=== PATIENT | male | born 1955 | race Caucasian/White ===

== ENCOUNTER 2020-06-11 09:11 | Outpatient (REF) | payer MEDICARE, SELFPAY ==
[2020-06-11 11:45] LABS: Anion Gap 13 (12-20); Blood Urea Nitrogen 14 mg/dL (9-16); Carbon Dioxide 27 mmol/L (22-29); Chloride 100 mmol/L (96-108); Cholesterol 226 mg/dL; Estimated Glomerular Filt Rate > 60; Glucose Random 123 mg/dL (60-115); HDL Cholesterol 45 mg/dL; LDL Cholesterol Calculated 148 mg/dl; Potassium 4.4 mmol/l (3.3-5.1); Sodium 136 mmol/L (135-145); Triglycerides 166 mg/dL
[2020-06-11 12:07] LABS: Prostate Specific Antigen Scr 0.32 ng/mL (<0.05-4.0); TSH reflex Free T4 5.06 mIU/mL (0.32-4.0)
[2020-06-11 12:46] LABS: Free T4 (Free Thyroxine) 0.78 ng/dL (0.71-1.85)
== END 2020-06-11 09:12 | disposition home or self-care (01) ==
LOC: HO.HMGCLDS 09:11
PROVIDERS: PCP Nurse Practitioner Family; Visit Provider Nurse Practitioner Family
DX: Z12.5 Encounter for screening for malignant neoplasm of prostate (principal); I10 Essential (primary) hypertension; R73.01 Impaired fasting glucose; R79.89 Other specified abnormal findings of blood chemistry
CPT/HCPCS: 80048; 80061; 84153; 84439; 84443

== ENCOUNTER 2020-06-24 08:44 | Outpatient (REF) | payer SELFPAY ==
[2020-06-24 12:20] LABS: Estimated Average Glucose 128 mg/dL; Hemoglobin A1c % 6.1 %
[2020-06-24 12:31] LABS: Anion Gap 13 (12-20); Blood Urea Nitrogen 12 mg/dL (9-16); Calcium 8.9 mg/dL (8.4-10.2); Carbon Dioxide 28 mmol/L (22-29); Chloride 101 mmol/L (96-108); Cholesterol 218 mg/dL; Estimated Glomerular Filt Rate > 60; Glucose Fasting 117 mg/dL (60-99); HDL Cholesterol 45 mg/dL; LDL Cholesterol Calculated 144 mg/dl; Potassium 4.5 mmol/l (3.3-5.1); Sodium 137 mmol/L (135-145); Triglycerides 145 mg/dL
[2020-06-24 12:37] LABS: TSH reflex Free T4 3.81 mIU/mL (0.32-4.0)
[2020-06-25 11:00] LABS: Alanine Aminotransferase 33 U/L (0-40); Albumin Level 3.9 g/dL (3.5-5.0); Alkaline Phosphatase 82 U/L (39-117); Aspartate Amino Transferase 24 U/L (5-37); Bilirubin Direct 0.4 mg/dL (0.0-0.5); Total Protein 7.3 g/dL (6.5-8.0)
[2020-06-25 18:32] LABS: Thyroid Peroxidase Antibodies <1 IU/mL (<9)
== END 2020-06-24 08:45 | disposition home or self-care (01) ==
LOC: HO.HMGCLDS 08:44
PROVIDERS: PCP Nurse Practitioner Family; Visit Provider Nurse Practitioner Family
DX: I10 Essential (primary) hypertension (principal); R73.01 Impaired fasting glucose; R79.89 Other specified abnormal findings of blood chemistry; E78.5 Hyperlipidemia, unspecified
CPT/HCPCS: 36415; 80048; 80061; 80076; 83036; 84443; 86376

== ENCOUNTER 2021-01-16 09:03 | Outpatient (REF) | payer MEDICARE, SELFPAY ==
[2021-01-16 12:40] LABS: TSH reflex Free T4 4.33 uIU/mL (0.32-4.0)
[2021-01-16 12:50] LABS: Alanine Aminotransferase 38 U/L (0-40); Alkaline Phosphatase 79 U/L (39-117); Anion Gap 16 (12-20); Aspartate Amino Transferase 31 U/L (5-37); Bilirubin Direct 0.4 mg/dL (0.0-0.5); Bilirubin Total 1.3 mg/dL (0.0-1.0); Blood Urea Nitrogen 13 mg/dL (9-16); Calcium 9.7 mg/dL (8.4-10.2); Carbon Dioxide 27 mmol/L (22-29); Chloride 99 mmol/L (96-108); Cholesterol 236 mg/dL; Estimated Glomerular Filt Rate > 60; Glucose Fasting 129 mg/dL (60-99); HDL Cholesterol 47 mg/dL; LDL Cholesterol Calculated 153 mg/dl; Potassium 4.8 mmol/L (3.3-5.1); Sodium 137 mmol/L (135-145); Total Protein 7.7 g/dL (6.5-8.0); Triglycerides 180 mg/dL
[2021-01-16 13:26] LABS: Free T4 (Free Thyroxine) 0.75 ng/dL (0.71-1.85)
== END 2021-01-16 09:04 | disposition home or self-care (01) ==
LOC: HO.HMGCLDS 09:03
PROVIDERS: PCP Nurse Practitioner Family; Visit Provider Nurse Practitioner Family
DX: I10 Essential (primary) hypertension (principal)
CPT/HCPCS: 36415; 80053; 80061; 80076; 82248; 84439; 84443

== ENCOUNTER 2021-01-31 10:04 | Outpatient (REF) | payer MEDICARE, SELFPAY ==
[2021-01-31 11:52] LABS: Cholesterol 221 mg/dL; HDL Cholesterol 47 mg/dL; LDL Cholesterol Calculated 142 mg/dl; Triglycerides 163 mg/dL
[2021-01-31 12:00] LABS: Estimated Average Glucose 137 mg/dL; Hemoglobin A1c % 6.4 %
== END 2021-01-31 10:05 | disposition home or self-care (01) ==
LOC: HO.HMGCLDS 10:04
PROVIDERS: PCP Nurse Practitioner Family; Visit Provider Nurse Practitioner Family
DX: E78.5 Hyperlipidemia, unspecified (principal); R73.01 Impaired fasting glucose
CPT/HCPCS: 36415; 80061; 83036

== ENCOUNTER 2021-03-17 08:27 | Outpatient (REF) | payer MEDICARE, SELFPAY ==
[2021-03-17 12:00] LABS: Cholesterol 158 mg/dL; HDL Cholesterol 46 mg/dL; LDL Cholesterol Calculated 82 mg/dl; Triglycerides 154 mg/dL
[2021-03-17 13:27] LABS: Free T4 (Free Thyroxine) 0.78 ng/dL (0.71-1.85)
== END 2021-03-17 08:28 | disposition home or self-care (01) ==
LOC: HO.HMGCLDS 08:27
PROVIDERS: PCP Nurse Practitioner Family; Visit Provider Nurse Practitioner Family
DX: E78.5 Hyperlipidemia, unspecified (principal); R79.89 Other specified abnormal findings of blood chemistry
CPT/HCPCS: 36415; 80061; 84439; 84443

== ENCOUNTER 2021-10-14 07:42 | Outpatient (REF) | payer MEDICARE, SELFPAY ==
--- NOTE | ~2021-10-14 | XR_ITS ---
EXAMINATION: XR HAND, RIGHT CLINICAL INFORMATION: Pain COMPARISON: None TECHNIQUE: PA, lateral, and oblique views of the right hand. FINDINGS: The bones and soft tissues are normal. No fracture. Alignment is anatomic. Joint spaces are maintained. No erosions or soft tissue calcifications. XR/XR hand RT min 3V IMPRESSION: No fracture or dislocation.
== END 2021-10-14 07:43 | disposition home or self-care (01) ==
LOC: HO.HOSX 07:42
PROVIDERS: Visit Provider Physician Assistant
DX: M72.0 Palmar fascial fibromatosis [Dupuytren] (principal)
CPT/HCPCS: 73130; 99202

== ENCOUNTER → 2021-11-11 08:34 | Outpatient (BNVA) | payer MEDICARE, SELFPAY | PROVIDERS: PCP Nurse Practitioner Family; Visit Provider Orthopaedic Surgery | DX: M72.0 Palmar fascial fibromatosis [Dupuytren] (principal) | CPT/HCPCS: 99202 ==

== ENCOUNTER 2021-11-24 06:05 | Day surgery (SDC) | payer MEDICARE, SELFPAY ==
[2021-11-18 14:44] VITALS: BMI 38.0
[2021-11-19 11:10] VITALS: BMI 38.0
--- NOTE | 2021-11-20 13:45 | HO.ANESPROP2 ---
Documented by User: Thuy Martinez NP 11/20/21 13:45 HPI - Anesthesia Eval Consult details Narrative: 66yo M for Right Partial Dupuytrens Contracture Release of hand and small finger PMFSH Active Problems Active Problems: All Active Problems (Updated 10/14/21 @ 09:44 by Juliet Whitaker PA-C) Elevated fasting blood sugar (Acute) Dyslipidemia (Acute) Finger pain (Acute) Dupuytren's contracture of right hand (Acute) Elevated TSH (Acute) Obesity (Acute) Screening PSA (prostate specific antigen) (Acute) HTN (hypertension) (Acute) Past Medical History Medical History Elevated TSH Gout HTN (hypertension) Obesity Screening PSA (prostate specific antigen) Varicose veins of both lower extremities Family History Family History Father HTN (hypertension) Mother Parkinsons disease Surgical History Surgical History (Updated 11/19/21 @ 11:09 by Raquel Boss RN) Hx of colonoscopy Hx of vascular surgery Social History Social History Are you a primary career services coordinator to a significant other at home: No Do you presently have visiting nurse or other home services: No Alcohol intake: current Patient Tobacco Use Status: Never used Tobacco Use of substances other than those prescribed or required for medical reasons: No Are you DNR?: No Advance Directives: No Advance Directives Information Provided: Yes Advance Directives on File: No Recently lost weight without trying: No Current occupational status: retired Meds Allergies Allergy/AdvReac Type Severity Reaction Status Date / Time No Known Allergies Allergy Verified 11/24/21 06:30 [No Known Allergies*] Exam Exam Date and Time: November 20, 2021 1345 Height,Weight and Vital Signs: Height 5 ft 10 in Weight 120.202 kg Assessment and Plan Assessment Anesthesia Assessment: Chart Reviewed Documented by User: Glenroy Muñiz MD 11/24/21 07:09 [facility] Past Medical History Medical History Elevated TSH Gout HTN (hypertension) Obesity Screening PSA (prostate specific antigen) Varicose veins of both lower extremities Family History Family History Father HTN (hypertension) Mother Parkinsons disease Family history of problems with anesthesia: No Surgical History Surgical History (Updated 11/19/21 @ 11:09 by Raquel Boss, RN) Hx of colonoscopy Hx of vascular surgery History of Problems with Anesthesia: No Social History Social History Are you a primary career services coordinator to a significant other at home: No Do you presently have visiting nurse or other home services: No Alcohol intake: current Patient Tobacco Use Status: Never used Tobacco Use of substances other than those prescribed or required for medical reasons: No Are you DNR?: No Advance Directives: No Advance Directives Information Provided: Yes Advance Directives on File: No Recently lost weight without trying: No Current occupational status: retired Meds Allergies Allergy/AdvReac Type Severity Reaction Status Date / Time No Known Allergies Allergy Verified 11/24/21 06:30 [No Known Allergies*] Exam Airway Mallampati Class: III TM Dist: >3cm Neck ROM: Full Assessment and Plan Assessment Anesthesia Assessment: Anesthesia Plan Discussed Final Anesthetic Review Family History of Problems with Anesthesia: No History of Problems with Anesthesia: No NPO: Yes ASA Class: III Final Preanesthetic Review: No Changes in Pt Med Stat, Meds/Allgs Chart Reviewed, Consent Obtained/Reviewed and Anes Risks/Benef Reviewed Patient Risk: Low Procedure Risk: Low Anesthetic Plan Anesthetic Plan: GA and Regional Block Disposition: Standard PACU
[2021-11-24] VITALS (7 sets, daily range): BP systolic 106–153; BP diastolic 53–81; PULSE 79–90; RESP 14–18; TEMP 36.2–36.7; O2SAT 93–97
[2021-11-24] MEDS: Lactated Ringers 1,000 ML 100 ML IVCONT (06:45)
--- NOTE | 2021-11-24 08:01 | MHC.SHP ---
Pre-Procedural Eval Section A Date of Service: 11/24/21 The patient is an INPATIENT: No Changes since office visit: No Cold of Flu in the past 2 weeks, No New Medical Problems, No Changes in Medication and No Patient answered all questions The History & Physical has been completed within 30 days and I have reviewed it.: Yes Section B Chief Complaint: dupuytren Allergies: Allergies Allergy/AdvReac Type Severity Reaction Status Date / Time No Known Allergies Allergy Verified 11/24/21 06:30 [No Known Allergies*] Plan I have reviewed the history and physical and performed a pertinent physical examination on my patient. No changes have occurred unless specified.
--- NOTE | 2021-11-24 08:01 | W.PM.OPN ---
Operative Note Operative Note Date of Service: 11/24/21 Narrative: Preop diagnosis: 1. Right small finger Dupuytren's contracture Postop diagnosis: Same Procedure: 1. Right small finger Partial Dupuytren's fasciectomy Surgeon: Johanna Chowdary MD Anesthesia: Mac plus regional block Findings: spiral Dupuytren's cord extending along the radial aspect of the small finger pass the D IP flexion crease. Postoperatively his contracture improved to MCP 0 degrees / PIP 20 degrees/D IP 0 degrees Implants: None Tourniquet time: Seventy-nine minutes EBL: 5.0 ml Specimen: Right small finger Dupuytren's cord Drains: None Complications: None Disposition: Brought to the recovery room in stable condition Plan: Follow-up in 10-14 days for wound check, suture removal and to check pathology OT appt on day of f/u to make a custom night spint and to begin OT Indications: The patient is a 66 year old man with a right small finger Dupuytren's contracture . The risks and benefits of operative treatment, including but not limited to risk of damage to blood vessels, nerves, tendons, infection, recurrence, persistent pain or numbness, incomplete resolution of preoperative symptoms, or need for further surgery were discussed with the patient and they wished to proceed with surgery. Procedure: Once consent was obtained patient was brought back to the operating suite and placed in the operating table in a supine position. A regional block was performed by the anesthesia team. Perioperative antibiotics and anesthesia was administered by the anesthesia team. A tourniquet was applied to the proximal aspect of the right upper extremity and the limb was prepped and draped in a standard surgical fashion. The limb was elevated exsanguinated with Esmarch bandage and the tourniquet inflated to 250 mm of mercury for a total tourniquet time of 79 minutes. I made a Kevin type incision extending along the Dupuytren's cord from the mid palm to the DIP flexion crease of the right small finger. The Incision was made with a 15. Blade through the skin the subcutaneous tissues. I then carefully dissected down to the level of the Dupuytren's cord beginning at the proximal aspect of the incision. This was done using tenotomy in iris scissors. Care was taken to protect the nearby neurovascular structures. The Dupuytren's cord was cut at its proximal aspect using tenotomy scissors. It was then grasped with an Allis clamp. TheDupuytren's cord was then carefully dissected free in a proximal to distal direction using tenotomy scissors and again taking care to protect the nearby neurovascular structures. The Dupuytren's cord became a spiral cord that extended up the radial aspect of the small finger to just beyond the D IP flexion crease. There was also a portion of the cord that extended radially from the primary cord to the ulnar aspect of the ring finger. We carefully dissected this additional cord off of the main cord and removed it as it passed towards the ring finger. The ulnar neurovascular bundle was noted to passed deep to the cord and towards the central aspect of the finger. Care was taken to carefully dissect this neurovascular bundle from the underside of the cord and protect It. The Dupuytren's cord was then carefully dissected free from the skin, the flexor tendon sheath, and other structures as we dissected from proximal to distal. It was then carefully removed and placed on the back table to be sent for histopathologic review. His contracture improved significantly to 0 degrees MCP/ 20 degree PIP /0 degree D IP. At this point the tourniquet was deflated and hemostasis obtained with a brief period of local pressure . The wounds were copiously irrigated with normal saline. The skin edges were reapproximated with 5-0 Prolene suture. The Wound was infiltrated with some 2% lidocaine with [id number] epinephrine. I also performed an ulnar nerve block by infiltrating about the ulnar nerve at the wrist for postop pain control. A sterile dressing and volar splint holding the small and ring fingers in extension was applied. The patient appears to have tolerated the procedure well and with no complications. All digits were well vascularized conclusion of the case
== END 2021-11-24 12:35 | disposition home or self-care (01) ==
PROVIDERS: PCP Nurse Practitioner Family; Visit Provider Orthopaedic Surgery
PROC: (CPT 26045; principal; 2021-11-24 07:30)
DX: M72.0 Palmar fascial fibromatosis [Dupuytren] (principal); I10 Essential (primary) hypertension
CPT/HCPCS: 26123; 88304; J0690; J1100; J1170; J1885; J2250; J2370; J2405; J3010

== ENCOUNTER → 2021-12-03 14:14 | Outpatient (BNVA) | payer MEDICARE, SELFPAY | PROVIDERS: PCP Orthopaedic Surgery; Visit Provider Orthopaedic Surgery | DX: Z47.89 Encounter for other orthopedic aftercare (principal) | CPT/HCPCS: 99212 ==

== ENCOUNTER → 2021-12-10 13:15 | Outpatient (BNVA) | payer MEDICARE, SELFPAY | PROVIDERS: PCP Orthopaedic Surgery; Visit Provider Physician Assistant | DX: Z47.89 Encounter for other orthopedic aftercare (principal); Z87.39 Personal history of other diseases of the musculoskeletal system and connective tissue | CPT/HCPCS: 99212 ==

== ENCOUNTER → 2021-12-16 13:30 | Outpatient (BNVA) | payer MEDICARE, SELFPAY | PROVIDERS: Visit Provider Orthopaedic Surgery | DX: M72.0 Palmar fascial fibromatosis [Dupuytren] (principal) | CPT/HCPCS: 99212 ==

== ENCOUNTER 2021-12-22 09:00 | Outpatient (RCR) | payer MEDICARE, SELFPAY ==
--- NOTE | 2021-12-15 10:02 | MHC.OT.OP ---
[address] [phone] F: [phone] Occupational Therapy Progress Note Diagnosis: Right small finger Dupuyrtens contracture s/p partial fasciectomy Date of Surgery: 11/24/21 Date of Evaluation: 12/03/21 Treatments to Date: 3 Cancellations to Date: 0 No Shows to Date: 1 Subjective: It's closing up a little more every day Reports wearing night ext splint and working on making a fist, using hedge trimmers.. Pain Score: 0 Pain Location: Right hand Objective Measures: AROM MCPj 5/70 , PIPj 25/80, DIPj 0/45 PROM 0/80, 0/85 , 0/50 Status: Progressing Assessment: Pt reports painfree. Surgical wound healing uncovered with rice grain size opening at proximal digit crease. Inc ROM after treatment digit 0.5 cm distance to DPC Pt reports full use of his left hand ,wearing a glove with heavy work. 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
--- NOTE | 2021-12-22 09:38 | MHC.OT.DC ---
[address] [phone] F: [phone] Occupational Therapy Discharge Note Provider: Johanan Chowdary MD Diagnosis: Right small finger Dupuyrtens contracture s/p partial fasciectomy Date of Surgery: 11/24/21 Date of Evaluation: 12/03/21 Date of Discharge: 12/22/21 Treatments to Date: 5 Cancellations to Date: 0 No Shows to Date: 1 Discharge Status: Achieved Goals Improved Function Independent with HEP Discharge Summary: Surgical wound closed. Small finger to DPC. Passive PIPj ext to neutral. Active ext 10 deg Pt using MHP at home prior to ex. Indep in HEP and con't wearing night ext splint Goals met Electronically Signed By: Brunilda Montaño OT CHT CLT Reviewed/agree with student documentation: N/A Therapist: Please Sign and return to therapist, thank you for your referral.
== END 2021-12-22 09:38 | disposition home or self-care (01) ==
LOC: HO.OT 09:00
PROVIDERS: Visit Provider Orthopaedic Surgery
DX: M72.0 Palmar fascial fibromatosis [Dupuytren] (principal)
CPT/HCPCS: 29130; 97110; 97165; 97760

== ENCOUNTER 2022-04-08 10:59 | Inpatient (IN) | payer MEDICARE, SELFPAY ==
--- NOTE | ~2022-04-08 | MR_ITS ---
EXAMINATION: MR FOOT WITHOUT AND WITH CONTRAST, LEFT CLINICAL INFORMATION: Evaluate for osteomyelitis, question on the x-ray. COMPARISON: X-ray 04/08/2022. TECHNIQUE: MRI in a high-field magnet without and with contrast. 10 mL Gadavist. FINDINGS: There is skin irregularity/ulceration on the plantar aspect of the distal 1st toe in the region of the distal aspect 1st distal phalanx. Underlying soft tissue edema/cellulitis. No loculated drainable fluid collections. There is abnormal edema, increased T2, low T1 signal enhancement in the mid/distal aspect of the 1st distal phalanx, suspicious for osteomyelitis. Mild 1st MTP arthritis. No additional areas of osteomyelitis seen. Visualized tendons intact. No appreciable tenosynovitis. Atrophy and increased signal in the intrinsic muscles of the foot can be seen in diabetic patients. There is dorsal foot subcutaneous edema/cellulitis. Visualized plantar aponeurosis is intact. Lisfranc ligament is intact. MR/MR foot LT wo/w con IMPRESSION: 1. Plantar skin irregularity/ulceration at the level of the distal aspect of the 1st toe. Soft tissue edema/cellulitis in the plantar soft tissues. No organized fluid collection or abscess is seen. 2. Abnormal findings suspicious of osteomyelitis of the 1st distal phalanx. Additional findings and details as above.
--- NOTE | ~2022-04-08 | XR_ITS ---
EXAMINATION: XR TOES, LEFT CLINICAL INFORMATION: First toe pain and swelling COMPARISON: None TECHNIQUE: 3 views of the left toes were obtained. FINDINGS: Soft tissue lucency along the undersurface of the tuft of the first toe is consistent with provided history of open wound. There is some subtle cortical irregularity involving the undersurface of the tuft, nonspecific. There is no fracture of the first toe. Mild diffuse soft tissue swelling. No radiopaque foreign body. XR/XR toe LT min 2V IMPRESSION: Subtle cortical irregularity involving the undersurface of the tuft of the first toe may represent osteomyelitis. Clinical correlation recommended.
[2022-04-08 11:00] VITALS: BP 158/66; PULSE 79; RESP 18; TEMP 36.6; O2SAT 98; BMI 37.3
[2022-04-08 11:28] LABS: MANUAL DIFF FLAG NO
[2022-04-08 11:40] LABS: Basophils Absolute Auto 0.1 X10*3/uL (0.0-0.2); Eosinophils Absolute Auto 0.3 X10*3/uL (0.0-0.4); Eosinophils Percent Auto 3.1 % (0-4); Hematocrit 42.8 % (42.0-52.0); Hemoglobin 14.9 g/dl (14.0-18.0); Imm Gran Abs Auto 0.04 X10*3/uL (0.00-0.03); Imm Gran Pct Auto 0.5 % (0.0-0.4); Lymphocytes Absolute Auto 1.6 X10*3/uL (1.2-4.9); Lymphocytes Percent Auto 18.6 % (20-40); Mean Corpuscular HGB Conc 34.8 g/dl (31.0-36.0); Mean Corpuscular Hemoglobin 33.6 pg (27.0-33.0); Mean Corpuscular Volume 96.6 fL (80.0-98.0); Mean Platelet Volume 9.8 fL (9.4-12.4); Monocytes Absolute Auto 0.6 X10*3/uL (0.1-1.2); Monocytes Percent Auto 7.3 % (2-11); Neutrophils Absolute Auto 5.9 x10*3/uL (2.0-8.3); Neutrophils Percent Auto 69.5 % (45-73); Platelet Count 258 X10*3/uL (160-400); Red Blood Count 4.43 X10*6/uL (4.60-5.80); Red Cell Distribution Width 13.3 % (11.0-16.0); White Blood Count 8.4 X10*3/uL (4.8-10.8)
[2022-04-08 11:47] LABS: Anion Gap 15 (12-20); Blood Urea Nitrogen 15 mg/dL (9-16); Calcium 9.6 mg/dL (8.4-10.2); Carbon Dioxide 26 mmol/L (22-29); Chloride 99 mmol/L (96-108); Creatinine Clr Calc Pharmacy 79.8; Estimated Glomerular Filt Rate > 60; Glucose Random 175 mg/dL (60-115); Potassium 4.5 mmol/L (3.3-5.1); Sodium 135 mmol/L (135-145)
[2022-04-08 13:31] LABS: C Reactive Protein 1.69 mg/dL (< or = 0.50)
[2022-04-08 14:10] LABS: Erythrocyte Sedimentation Rate 34 MM/HR (0-15)
[2022-04-08 21:14] VITALS: BP 162/80; PULSE 61; RESP 16; TEMP 36.6; O2SAT 99
--- NOTE | 2022-04-08 21:59 | ED_ITS ---
HPI - General Adult General Chief complaint: Wound/Laceration Stated complaint: l great toe infection Time Seen by Provider: 04/08/22 12:54 Source: patient Mode of arrival: ambulatory Limitations: no limitations History of Present Illness HPI narrative: Patient comes to the emergency room complaining of an infection to the left great toe. Patient states that 4 weeks ago, he dropped a 200lbs piece of wood on his left foot. Patient states that he noticed that he was developing ulcer on the plantar aspect of the toe. Patient applied bacitracin every day. The initial 2 weeks, patient states that it was healing, but the following 2 weeks, starting getting worse. Patient denies any fever chills. Patient went to a walk-in clinic today, he was advised to come to the emergency room for suspicion of osteomyelitis/gangrene Related Data Previous Rx's Medication Instructions Recorded allopurinol 100 mg tablet 100 mg PO DAILY 90 days #90 tabs 03/25/22 hydrochlorothiazide 12.5 mg tablet 12.5 mg PO DAILY 30 days #30 tabs 03/25/22 lisinopril 40 mg tablet 40 mg PO DAILY #90 tabs 03/25/22 Allergies Allergy/AdvReac Type Severity Reaction Status Date / Time No Known Allergies Allergy Verified 04/08/22 09:47 [No Known Allergies*] Review of Systems Review of Systems: Constitutional : No Weight loss, No Fever, No Chills, No Night Sweats, No Fatigue, No Malaise ENT/Mouth : No Hearing loss, No Ear Pain, No Nasal Congestion, No Sinus Pain, No Hoarseness, No sore throat, No Rhinorrhea, No Swallowing Difficulty Eyes: No Eye Pain, No Swelling, No Redness, No Foreign Body, No Discharge, No Vision Changes Cardiovascular : No Chest Pain, No SOB, No Dyspnea on Exertion, No Orthopnea, No Edema, No Palpitations Respiratory : No Cough, No Sputum, No Wheezing, No Smoke Exposure, No Dyspnea Gastrointestinal : No Nausea, No Vomiting, No Diarrhea, No Constipation, No abdominal Pain, No Hematochezia, No Melena Genitourinary : no irregular bleeding, No Dysuria, No Urinary Frequency, No Hematuria, No Urinary Incontinence, No Urgency, No Flank Pain, No Urinary Flow Changes, No Hesitancy Musculoskeletal : No joint pain, No Myalgias, No Joint Swelling Skin : Ulcer in the great toe plantar aspect Neuro : No Weakness, No Numbness, No Paresthesias, No Loss of Consciousness, No Dizziness, No Headache Psych : No Anxiety/Panic, No Depression, No SI/HI/AH/VH, No Social Issues, Heme/Lymph: No Bruising, No Bleeding,No Lymphadenopathy Endocrine : No Polyuria, No Polydipsia, No Temperature Intolerance PMF Past Medical History Medical History Elevated TSH Gout HTN (hypertension) Obesity Screening PSA (prostate specific antigen) Varicose veins of both lower extremities Surgical History Hx of colonoscopy Hx of vascular surgery Family History Family History Father HTN (hypertension) Mother Parkinsons disease Social History Social History Are you a primary career based intervention coordinator to a significant other at home: No Do you presently have visiting nurse or other home services: No Alcohol intake: current Patient Tobacco Use Status: Never used Tobacco Current occupational status: retired Physical Exam ED Vital Signs: Vital Signs - 24 hr 04/08/22 11:00 04/08/22 21:14 Temperature 98 F 97.8 F Pulse Rate 79 61 Respiratory Rate 18 16 Blood Pressure 158/66 H 162/80 H Pulse Oximetry 98 99 Oxygen Delivery Method Room Air Room Air BMI result Body Mass Index 37.3 Const Other: Appearance: Alert. Oriented X3. No acute distress. Eyes: Pupils equal, round and reactive to light. ENT: Pharynx normal. Neck: Normal inspection. Neck supple. No lymph nodes noted. No crepitus CVS: Normal heart rate and rhythm. Pulses normal. Normal S1 and S2 Respiratory: No respiratory distress. Breath sounds normal. No Wheezing. No rales Abdomen: Soft and nontender. No rigidity. No distention. Skin: Skin warm and dry. Normal skin color. There is a deep ulceration in the plantar aspect of the left great toe, foul-smelling. see picture below Extremities: No lower extremity edema. Neuro: Oriented X 3. No motor deficit. No sensory deficit. Moving all extremities. No slurred speech. CN 2 through 12 grossly intact Psych: calm, cooperative, normal affect Course Course Course Narrative: I discussed the x-ray findings and physical exam with the patient, patient likely has osteomyelitis. Patient will be treated with Zosyn and vancomycin. Patient does not have any fever, normal blood pressure, sepsis not suspected. I discussed the patient with dr. Jay, patient being admitted Medical Decision Making Lab Data Result diagrams: 04/08/22 11:20 04/08/22 11:20 Labs: Lab Results 04/08/22 04/08/22 04/08/22 Range/Units 11:20 11:20 11:20 WBC 8.4 (4.8-10.8) X10*3/uL RBC 4.43 L (4.60-5.80) X10*6/uL Hgb 14.9 (14.0-18.0) g/dl Hct 42.8 (42.0-52.0) % MCV 96.6 (80.0-98.0) fL MCH 33.6 H (27.0-33.0) pg MCHC 34.8 (31.0-36.0) g/dl RDW 13.3 (11.0-16.0) % Plt Count 258 (160-400) X10*3/uL MPV 9.8 (9.4-12.4) fL Immature Gran % (Auto) 0.5 H (0.0-0.4) % Neut % (Auto) 69.5 (45-73) % Lymph % (Auto) 18.6 L (20-40) % [place] % (Auto) 7.3 (2-11) % Eos % (Auto) 3.1 (0-4) % Baso % (Auto) 1.0 (0-2) % Lymph # (Auto) 1.6 (1.2-4.9) X10*3/uL [place] # (Auto) 0.6 (0.1-1.2) X10*3/uL Eos # (Auto) 0.3 (0.0-0.4) X10*3/uL Baso # (Auto) 0.1 (0.0-0.2) X10*3/uL Abs Immat Gran (auto) 0.04 H (0.00-0.03) X10*3/uL Absolute Neuts (auto) 5.9 (2.0-8.3) x10*3/uL Absolute Nucleated RBC 0.000 (0.0-0.012) X10*3/uL Nucleated RBC % (auto) 0.0 (0.0-0.2) /100WBC ESR (0-15) MM/HR Sodium 135 (135-145) mmol/L Potassium 4.5 (3.3-5.1) mmol/L Chloride 99 (96-108) mmol/L Carbon Dioxide 26 (22-29) mmol/L Anion Gap 15 (12-20) BUN 15 (9-16) mg/dL Creatinine 1.14 (0.5-1.4) mg/dL Estim Creat Clear Calc 79.8 Estimated GFR > 60 Random Glucose 175 H D (60-115) mg/dL Lactic Acid 2.0 (0.5-2.0) mmol/L Calcium 9.6 (8.4-10.2) mg/dL C-Reactive Protein 1.69 H (< or = 0.50) mg/dL 04/08/22 Range/Units 11:20 WBC (4.8-10.8) X10*3/uL RBC (4.60-5.80) X10*6/uL Hgb (14.0-18.0) g/dl Hct (42.0-52.0) % MCV (80.0-98.0) fL MCH (27.0-33.0) pg MCHC (31.0-36.0) g/dl RDW (11.0-16.0) % Plt Count (160-400) X10*3/uL MPV (9.4-12.4) fL Immature Gran % (Auto) (0.0-0.4) % Neut % (Auto) (45-73) % Lymph % (Auto) (20-40) % [place] % (Auto) (2-11) % Eos % (Auto) (0-4) % Baso % (Auto) (0-2) % Lymph # (Auto) (1.2-4.9) X10*3/uL [place] # (Auto) (0.1-1.2) X10*3/uL Eos # (Auto) (0.0-0.4) X10*3/uL Baso # (Auto) (0.0-0.2) X10*3/uL Abs Immat Gran (auto) (0.00-0.03) X10*3/uL Absolute Neuts (auto) (2.0-8.3) x10*3/uL Absolute Nucleated RBC (0.0-0.012) X10*3/uL Nucleated RBC % (auto) (0.0-0.2) /100WBC ESR 34 H (0-15) MM/HR Sodium (135-145) mmol/L Potassium (3.3-5.1) mmol/L Chloride (96-108) mmol/L Carbon Dioxide (22-29) mmol/L Anion Gap (12-20) BUN (9-16) mg/dL Creatinine (0.5-1.4) mg/dL Estim Creat Clear Calc Estimated GFR Random Glucose (60-115) mg/dL Lactic Acid (0.5-2.0) mmol/L Calcium (8.4-10.2) mg/dL C-Reactive Protein (< or = 0.50) mg/dL Imaging Data Foot x-ray: Radiologist's impression: FINDINGS: Soft tissue lucency along the undersurface of the tuft of the first toe is consistent with provided history of open wound. There is some subtle cortical irregularity involving the undersurface of the tuft, nonspecific. There is no fracture of the first toe. Mild diffuse soft tissue swelling. No radiopaque foreign body. XR/XR toe LT min 2V IMPRESSION: Subtle cortical irregularity involving the undersurface of the tuft of the first toe may represent osteomyelitis. Clinical correlation recommended. Discharge Plan Discharge Clinical Impression: Acute osteomyelitis of toe of left foot Patient Disposition: Admitted As Inpatient Prescriptions: No Action allopurinol 100 mg tablet 100 mg PO DAILY 90 Days Qty: 90 0RF hydrochlorothiazide 12.5 mg tablet 12.5 mg PO DAILY 30 Days Qty: 30 3RF lisinopril 40 mg tablet 40 mg PO DAILY Qty: 90 0RF oxycodone-acetaminophen 5-325 mg tablet 1 - 2 tab PO Q6H PRN (Reason: pain) Qty: 30 0RF ibuprofen 600 mg tablet 600 mg PO Q6-8H PRN (Reason: pain) Qty: 40 0RF
--- NOTE | 2022-04-08 22:07 | PHA.MEDREC ---
Pharmacy Consult ? Medication Reconciliation Pharmacy has completed the medication reconciliation. Patient seemed very confused. When asked about his medications he stated he cant remember anything, when asked what pharmacy he said he had no idea. When asked if he had someone help manage his meds he stated he does them alone. I used claims from [employer]. Will leave note for pharmacist tomorrow to retry/ call daughter.
--- NOTE | 2022-04-08 22:35 | PC.NURSE ---
Line placed and first set of blood cultures drawn
--- NOTE | 2022-04-08 22:42 | PM.IMHP ---
History of Present Illness Date of Service: 04/08/22 Chief Complaint: Foot wound This is a 66 year old male with past medical history of hypertension, gout, who presents to the hospital with complaints of left big toe nonhealing wound. Patient reports that about 4 weeks ago he dropped a 200 lb piece of wood on his left foot that fell directly on his big toe, he had some mild pain but he was a able to ambulate and did not think much of it. He did not seek any medical attention at the time. He reports that he did notice swelling and splinting of his big toe nail bed but he managed at home for 2 weeks. After 2 weeks is stopped getting better, started having a whole and draining serosanguineous fluid. He denies any fever or chills, he reports that he decided to come to the hospital because was not getting better. He also noted some redness and swelling on his foot coming to his ankle area. He denies any headache no change in vision no shortness of breath no chest pain, no abdominal pain nausea or vomiting, no diarrhea constipation, no urinary symptoms and no other extremity edema besides mention. On arrival to the ED patient hemodynamically stable with elevated blood pressure otherwise vitals unremarkable. Labs reviewed showed WBC count of 8.4, hemoglobin of 14.9, hematocrit 42, ESR 34, CRP of 1.69 Toe x-ray shows subtle cortical irregularities involving the undersurface of the tuft of the 1st toe which may represent osteomyelitis Patient denies any history of diabetes, patient will be admitted for further management of osteomyelitis Review of Systems Review of Systems: Yes all other systems are reviewed and are negative [facility] Medical History Elevated TSH Gout HTN (hypertension) Obesity Screening PSA (prostate specific antigen) Varicose veins of both lower extremities Family History Father HTN (hypertension) Mother Parkinsons disease Surgical History Hx of colonoscopy Hx of vascular surgery Social History Are you a primary nursing care partner to a significant other at home: No Do you presently have visiting nurse or other home services: No Alcohol intake: current Patient Tobacco Use Status: Never used Tobacco Advance Directives: No Advance Directives Information Provided: No Current occupational status: retired Meds Allergies Allergy/AdvReac Type Severity Reaction Status Date / Time No Known Allergies Allergy Verified 04/08/22 09:47 [No Known Allergies*] Active Medications: Current Medications Vancomycin HCl 2,000 mg/ (Sodium Chloride) 540 mls @ 270 mls/hr IV ONCE ONE Stop: 04/08/22 23:56 Pharmacy Consult (Consult Rx Perform Med Rec) 1 each MISCELLANE ONCE PRN PRN Reason: Consult order Physical Exam Vital Signs and Narrative: Vital Signs: Last Vital Signs Temp 97.8 F 04/08/22 21:14 Pulse 61 04/08/22 21:14 Resp 16 04/08/22 21:14 BP 162/80 H 04/08/22 21:14 Pulse Ox 99 04/08/22 21:14 O2 Del Method 04/08/22 21:14 BMI result Body Mass Index 37.3 Const: General: cooperative and no acute distress Orientation/consciousness: patient oriented x3 Eyes: General: appearance normal, both eyes and all related structures Resp: Effort & Inspection: normal respiratory effort Auscultation: clear to auscultation bilaterally Cardio: Rate: regular rate Rhythm: regular rhythm GI: Palpation (GI): Soft to palpation Auscultation: normal bowel sounds Skin: General skin exam: no rashes or lesions noted Neuro: General: patient oriented x3 Cognition (Neuro): normal cognition Extrem: Other: Left foot edema, erythema up to the lance, warmth, The left big toe has a large open ulcer at the base of the toe, clean with no evidence of discharge at this time Results Labs CBC and Chem 7: 04/08/22 11:20 04/08/22 11:20 Labs: Laboratory Results - last 24 hr 04/08/22 04/08/22 04/08/22 11:20 11:20 11:20 MCV 96.6 MCH 33.6 H MCHC 34.8 RDW 13.3 Plt Count 258 MPV 9.8 Immature Gran % (Auto) 0.5 H Neut % (Auto) 69.5 Lymph % (Auto) 18.6 L [place] % (Auto) 7.3 Eos % (Auto) 3.1 Baso % (Auto) 1.0 Lymph # (Auto) 1.6 [place] # (Auto) 0.6 Eos # (Auto) 0.3 Baso # (Auto) 0.1 Abs Immat Gran (auto) 0.04 H Absolute Neuts (auto) 5.9 Absolute Nucleated RBC 0.000 Nucleated RBC % (auto) 0.0 ESR Anion Gap 15 Estim Creat Clear Calc 79.8 Estimated GFR > 60 Random Glucose 175 H D Estimat Average Glucose Hemoglobin A1c % Lactic Acid 2.0 Calcium 9.6 C-Reactive Protein 1.69 H 04/08/22 04/08/22 11:20 11:20 MCV MCH MCHC RDW Plt Count MPV Immature Gran % (Auto) Neut % (Auto) Lymph % (Auto) [place] % (Auto) Eos % (Auto) Baso % (Auto) Lymph # (Auto) [place] # (Auto) Eos # (Auto) Baso # (Auto) Abs Immat Gran (auto) Absolute Neuts (auto) Absolute Nucleated RBC Nucleated RBC % (auto) ESR 34 H Anion Gap Estim Creat Clear Calc Estimated GFR Random Glucose Estimat Average Glucose Cancelled Hemoglobin A1c % Cancelled Lactic Acid Calcium C-Reactive Protein Imaging Radiologist's Impressions: Impressions Toe X-Ray 04/08/22 11:50 IMPRESSION: Subtle cortical irregularity involving the undersurface of the tuft of the first toe may represent osteomyelitis. Clinical correlation recommended. Assessment and Plan (1) Acute osteomyelitis of toe of left foot: Status: Acute (2) Toe infection: Status: Acute Plan 58-year-old male with past medical history of hypertension presents the hospital with complaints of nonhealing wound of left great toe # left great toe osteomyelitis - patient denies any history of diabetes or PAD - has evidence of osteomyelitis including elevated ESR and CRP as well as x-ray suggestive of osteomyelitis - will treat with IV antibiotics, - general surgery consult # hypertension - stable - continue home antihypertensive Given the osteomyelitis of toe, will obtain hemoglobin A1c to rule out underlying diabetes DVT prophylaxis: Lovenox Given osteomyelitis and need for IV antibiotics anticipate the patient will require a minimum 2 night hospital stay for further management and monitoring Quality Stroke Does the patient have a stroke diagnosis?: No VTE Prior VTE?: No VTE Risk Level:: Medical - moderate - high VTE Device Contraindication: Treatment Not Indicated VTE Drug Contraindication: N/A - Med Ordered
[2022-04-08] MEDS: Piperacillin Sodium/Tazobactam 3.375 GM in 0.9 % Sodium Chloride 50 ML IV (22:54)
[2022-04-08 23:18] LABS: Lactic Acid 1.1 mmol/L (0.5-2.0)
[2022-04-09] MEDS: 0.9 % Sodium Chloride 1,000 ML 100 ML IVCONT ×3 (00:57→19:41)
[2022-04-09] MEDS: Enoxaparin Sodium 40 MG/0.4 ML SYRINGE SUBCUT ×2 (00:59→23:20)
[2022-04-09] MEDS: 0.9 % Sodium Chloride Flush 3 ML SYRINGE IVFLUSH (01:00)
[2022-04-09 05:55] LABS: Basophils Absolute Auto 0.1 X10*3/uL (0.0-0.2); Eosinophils Absolute Auto 0.3 X10*3/uL (0.0-0.4); Eosinophils Percent Auto 3.9 % (0-4); Hematocrit 40.3 % (42.0-52.0); Hemoglobin 14.2 g/dl (14.0-18.0); Imm Gran Abs Auto 0.03 X10*3/uL (0.00-0.03); Imm Gran Pct Auto 0.4 % (0.0-0.4); Lymphocytes Absolute Auto 1.6 X10*3/uL (1.2-4.9); Lymphocytes Percent Auto 19.4 % (20-40); MANUAL DIFF FLAG NO; Mean Corpuscular HGB Conc 35.2 g/dl (31.0-36.0); Mean Corpuscular Hemoglobin 33.9 pg (27.0-33.0); Mean Corpuscular Volume 96.2 fL (80.0-98.0); Mean Platelet Volume 9.3 fL (9.4-12.4); Monocytes Absolute Auto 0.7 X10*3/uL (0.1-1.2); Monocytes Percent Auto 8.1 % (2-11); Neutrophils Absolute Auto 5.5 x10*3/uL (2.0-8.3); Neutrophils Percent Auto 67.2 % (45-73); Platelet Count 243 X10*3/uL (160-400); Red Blood Count 4.19 X10*6/uL (4.60-5.80); Red Cell Distribution Width 13.2 % (11.0-16.0); White Blood Count 8.1 X10*3/uL (4.8-10.8)
[2022-04-09 06:48] LABS: Anion Gap 11 (12-20); Blood Urea Nitrogen 12 mg/dL (9-16); Carbon Dioxide 27 mmol/L (22-29); Chloride 103 mmol/L (96-108); Creatinine Clr Calc Pharmacy 90.9; Estimated Glomerular Filt Rate > 60; Glucose Random 115 mg/dL (60-115); Potassium 4.4 mmol/L (3.3-5.1); Sodium 137 mmol/L (135-145)
[2022-04-09] MEDS: Piperacillin Sodium/Tazobactam 3.375 GM in 0.9 % Sodium Chloride 50 ML IV ×4 (06:57→23:21)
[2022-04-09 07:21] LABS: Estimated Average Glucose 126 mg/dL
[2022-04-09 08:08] LABS: COVID-19 Test Negative (Negative)
[2022-04-09 08:15] VITALS: BP 119/54; PULSE 73; RESP 18; TEMP 36.5; O2SAT 97
--- NOTE | 2022-04-09 08:55 | PHA.MEDREC ---
Pharmacy Consult ? Medication Reconciliation Pharmacy has completed the medication reconciliation. Patient was interviewed yesterday (04/08/22) by Arabella ([facility]). Patient did not know any of the meds they were taking. Called spouse and verified meds with her this morning (04/09/22). Cross-referenced with claim history.
[2022-04-09] MEDS: lisinopriL 40 MG TABLET PO (09:32)
[2022-04-09] MEDS: allopurinoL 100 MG TABLET PO (09:32)
[2022-04-09] MEDS: hydroCHLOROthiazide 12.5 MG TABLET PO (09:32)
--- NOTE | 2022-04-09 11:26 | MHC.CM.PN ---
PT REPORTS HE LIVES WITH HIS AND IS INDEPENDENT WITH CARE PT DENIES USE OF DME OR HOME SERVICES PT REPORTS HE IS IN T HE PROCESS OF COMPLETING A WILL/HCP WITH HIS SURVEY CHIEF PT IS COVID VACCINATED WITH [employer] (11/20/20) AND PFI[employer]ER (08/25/21) PCP: JAMESON SANTACRUZ IMM DELIVERED, COPY SENT TO [facility] CURRENT DC PLAN IS HOME WITH NO SERVICES VS WITH [facility] AND [facility] TO TRANSPORT
--- NOTE | 2022-04-09 12:03 | PC.NURSE ---
pt to mri
--- NOTE | 2022-04-09 14:32 | PC.NURSE ---
pt a&ox3, ivf running per order, ate some of lunch, will continue to monitor.
--- NOTE | 2022-04-09 15:33 | HO.PM.IMPN ---
Subjective Subjective Date of Service: 04/09/22 Interval History: no acute issues overnight Review of Systems denies chest pain Denies shortness of breath Denies nausea vomiting diarrhea Physical Exam Vital Signs: Vital Signs: Last Vital Signs Temp 97.7 F 04/09/22 08:15 Pulse 73 04/09/22 08:15 Resp 18 04/09/22 08:15 BP 119/54 L 04/09/22 08:15 Pulse Ox 97 04/09/22 08:15 O2 Del Method 04/09/22 08:15 BMI result Body Mass Index 37.3 Const: Other: denies pain in his foot. No acute issues Resp: Other: clear to auscultation bilaterally. No rales rhonchi or wheezes Cardio: Other: no S4; positive S1-S2; no S3 murmurs rubs or gallops Extrem: Other: no edema bilaterally Objective Data Active Medications Acetaminophen (Acetaminophen 325 Mg Tablet) 650 mg PO Q6H PRN PRN Reason: Pain, Mild (Pain Scale 1-3) Allopurinol (Allopurinol 100 Mg Tablet) 100 mg PO DAILY [facility] Last Admin: 04/09/22 09:32 Dose: 100 mg Documented By: MALORIE Docusate Sodium (Docusate Sodium 100 Mg Capsule) 100 mg PO DAILY PRN PRN Reason: Constipation Enoxaparin Sodium (Enoxaparin Sodium 40 Mg/0.4 Ml Syringe) 40 mg SUBCUT Q24H [facility] Last Admin: 04/09/22 00:59 Dose: 40 mg Documented By: SHIV Hydrochlorothiazide (Hydrochlorothiazide 12.5 Mg Tablet) 12.5 mg PO DAILY [facility]; Protocol Last Admin: 04/09/22 09:32 Dose: 12.5 mg Documented By: MALORIE Piperacillin Sod/Tazobactam (Sod 3.375 gm/ Sodium Chloride) 50 mls @ 100 mls/hr IV Q6H [facility] Last Infusion: 04/09/22 13:31 Dose: 0 mls/hr Documented By: YEIMI Sodium Chloride (Ns) 1,000 mls @ 100 mls/hr IVCONT .Q10H [facility] Last Admin: 04/09/22 09:32 Dose: 100 mls/hr Documented By: MALORIE Vancomycin HCl 1,000 mg/ (Sodium Chloride) 270 mls @ 270 mls/hr IV Q12H [facility] Lisinopril (Lisinopril 40 Mg Tablet) 40 mg PO DAILY [facility]; Protocol Last Admin: 04/09/22 09:32 Dose: 40 mg Documented By: MALORIE Ondansetron HCl (Ondansetron Hcl 4 Mg/2 Ml Vial) 4 mg IVPUSH Q8H PRN PRN Reason: Nausea and Vomiting Pharmacy Consult (Consult Rx Perform Med Rec) 1 each MISCELLANE ONCE PRN PRN Reason: Consult order Pharmacy Consult (Consult Rx Vancomycin Dosing) 1 each MISCELLANE DAILY PRN PRN Reason: Consult order Pharmacy Consult (Consult Rx Vancomycin Dosing) 1 each MISCELLANE DAILY PRN PRN Reason: Consult order Sodium Chloride (0.9 % Sodium Chloride Flush 3 Ml Syringe) 3 ml IVFLUSH QSHIFT [facility] Last Admin: 04/09/22 09:33 Dose: Not Given Documented By: MALORIE Non-Admin Reason: IV Running Labs CBC & Chem 7: 04/09/22 05:50 04/09/22 05:50 Labs: Laboratory Results - last 24 hr 04/08/22 04/08/22 04/08/22 11:20 11:20 11:20 MCV MCH MCHC RDW Plt Count MPV Immature Gran % (Auto) Neut % (Auto) Lymph % (Auto) [place] % (Auto) Eos % (Auto) Baso % (Auto) Lymph # (Auto) [place] # (Auto) Eos # (Auto) Baso # (Auto) Abs Immat Gran (auto) Absolute Neuts (auto) Absolute Nucleated RBC Nucleated RBC % (auto) ESR 34 H Anion Gap Estim Creat Clear Calc Estimated GFR Random Glucose Estimat Average Glucose Cancelled Hemoglobin A1c % Cancelled Lactic Acid Calcium C-Reactive Protein 1.69 H COVID-19 ([facility]) COVID-19 Clin Com 04/08/22 04/09/22 04/09/22 22:57 05:50 05:50 MCV 96.2 MCH 33.9 H MCHC 35.2 RDW 13.2 Plt Count 243 MPV 9.3 L Immature Gran % (Auto) 0.4 Neut % (Auto) 67.2 Lymph % (Auto) 19.4 L [place] % (Auto) 8.1 Eos % (Auto) 3.9 Baso % (Auto) 1.0 Lymph # (Auto) 1.6 [place] # (Auto) 0.7 Eos # (Auto) 0.3 Baso # (Auto) 0.1 Abs Immat Gran (auto) 0.03 Absolute Neuts (auto) 5.5 Absolute Nucleated RBC 0.000 Nucleated RBC % (auto) 0.0 ESR Anion Gap 11 L Estim Creat Clear Calc 90.9 Estimated GFR > 60 Random Glucose 115 Estimat Average Glucose Hemoglobin A1c % Lactic Acid 1.1 Calcium 9.0 D C-Reactive Protein COVID-19 ([facility]) COVID-19 Clin Com 04/09/22 04/09/22 05:50 07:46 MCV MCH MCHC RDW Plt Count MPV Immature Gran % (Auto) Neut % (Auto) Lymph % (Auto) [place] % (Auto) Eos % (Auto) Baso % (Auto) Lymph # (Auto) [place] # (Auto) Eos # (Auto) Baso # (Auto) Abs Immat Gran (auto) Absolute Neuts (auto) Absolute Nucleated RBC Nucleated RBC % (auto) ESR Anion Gap Estim Creat Clear Calc Estimated GFR Random Glucose Estimat Average Glucose 126 Hemoglobin A1c % 6.0 Lactic Acid Calcium C-Reactive Protein COVID-19 ([facility]) Negative COVID-19 Clin Com See Note Microbiology Microbiology Results: Microbiology 04/08/22 11:20 Blood Culture - Preliminary Blood - Venous No growth after 24 hours. 04/08/22 11:20 Blood Culture - Preliminary Blood - Venous No growth after 24 hours. Assessment and Plan (1) Acute osteomyelitis of toe of left foot: Status: Acute (2) HTN (hypertension): Status: Acute Plan 58-year-old male with past medical history of hypertension presents the hospital with complaints of nonhealing wound of left great toe 1.Left great toe osteomyelitis - verified by MRI - continue vanco and Zosyn - PICC line - id consult 2.Hypertension - acceptable control on current therapy - continue home antihypertensive DVT prophylaxis: Lovenox will require ongoing hospitalization for IV antibiotics to treat osteomyelitis Quality Stroke Does the patient have a stroke diagnosis?: No VTE Prior VTE?: No VTE Risk Level:: Medical - moderate - high VTE Device Contraindication: Treatment Not Indicated VTE Drug Contraindication: N/A - Med Ordered
[2022-04-09 18:04] VITALS: BP 134/69; PULSE 60; RESP 20; TEMP 36.8; O2SAT 98
[2022-04-09 21:17] LABS: Vancomycin Random 7.2 mcg/mL (15-20)
--- NOTE | 2022-04-09 21:45 | HE.PHANOTE ---
Trough of 7.2 taken 21 hrs after the one time 2 gm loading dose. An order for 500 mg Q12H was entered for 1100am on 04/09/22. that dose does not appear to have been given and at 1335 the MD increased dose to 1 gm Q12H. Order put on hold by day shift until trough drawn tonight. based on the one dose and one level, insight says 750 mg Q12H with anticipated AUC of 537
[2022-04-09 21:47] VITALS: BP 131/52; PULSE 64; RESP 18; TEMP 36.6; O2SAT 98
--- NOTE | 2022-04-09 21:51 | PC.NURSE ---
patient a&ox3, no c/o pain or discomfort, ivf running per order, vss, call castorena within reach, will continue to monitor.
--- NOTE | 2022-04-10 01:29 | PC.NURSE ---
NUrse to nurse report given to Juli, S3 floor RN-patient to be transported to room 354.
[2022-04-10 01:47] VITALS: BMI 38.5
[2022-04-10 01:59] VITALS: BP 164/74; PULSE 69; RESP 18; TEMP 36.2; O2SAT 97
--- NOTE | 2022-04-10 02:22 | PC.NURSE ---
Received report from Isela in ED around 01:28. Pt arrived on unit around 01:43. Pt oriented to unit, room, staff and call castorena system. VS obtained and assessment completed-see charting. IV fluids infusing as ordered. No c/o pain. Will continue to monitor.
[2022-04-10 03:36] VITALS: BP 136/69; PULSE 63; RESP 18; TEMP 36; O2SAT 99
[2022-04-10] MEDS: 0.9 % Sodium Chloride 1,000 ML 100 ML IVCONT (06:00)
[2022-04-10] MEDS: Piperacillin Sodium/Tazobactam 3.375 GM in 0.9 % Sodium Chloride 50 ML IV ×2 (06:01→12:22)
[2022-04-10 06:29] LABS: MANUAL DIFF FLAG NO
[2022-04-10 06:34] LABS: Basophils Absolute Auto 0.1 X10*3/uL (0.0-0.2); Basophils Percent Auto 0.9 % (0-2); Eosinophils Absolute Auto 0.3 X10*3/uL (0.0-0.4); Eosinophils Percent Auto 3.8 % (0-4); Hematocrit 40.3 % (42.0-52.0); Hemoglobin 13.7 g/dl (14.0-18.0); Imm Gran Abs Auto 0.03 X10*3/uL (0.00-0.03); Imm Gran Pct Auto 0.3 % (0.0-0.4); Lymphocytes Absolute Auto 1.8 X10*3/uL (1.2-4.9); Lymphocytes Percent Auto 20.3 % (20-40); Mean Corpuscular Hemoglobin 33.2 pg (27.0-33.0); Mean Corpuscular Volume 97.6 fL (80.0-98.0); Mean Platelet Volume 9.8 fL (9.4-12.4); Monocytes Absolute Auto 0.8 X10*3/uL (0.1-1.2); Monocytes Percent Auto 8.9 % (2-11); Neutrophils Absolute Auto 5.7 x10*3/uL (2.0-8.3); Neutrophils Percent Auto 65.8 % (45-73); Platelet Count 240 X10*3/uL (160-400); Red Blood Count 4.13 X10*6/uL (4.60-5.80); Red Cell Distribution Width 13.6 % (11.0-16.0); White Blood Count 8.7 X10*3/uL (4.8-10.8)
[2022-04-10 07:02] LABS: Alanine Aminotransferase 26 U/L (0-40); Albumin Level 3.4 g/dL (3.5-5.0); Alkaline Phosphatase 73 U/L (39-117); Anion Gap 14 (12-20); Aspartate Amino Transferase 25 U/L (5-37); Blood Urea Nitrogen 10 mg/dL (9-16); Calcium 8.5 mg/dL (8.4-10.2); Carbon Dioxide 25 mmol/L (22-29); Chloride 107 mmol/L (96-108); Creatinine Clr Calc Pharmacy 77.6; Estimated Glomerular Filt Rate > 60; Glucose Fasting 113 mg/dL (60-99); Potassium 4.7 mmol/L (3.3-5.1); Sodium 141 mmol/L (135-145); Total Protein 6.6 g/dL (6.5-8.0)
--- NOTE | 2022-04-10 07:38 | HE.PHANOTE ---
[VANCO ADDENDUM] I spoke to Dr. Locke about holding off his 1g Q12 order until the trough was drawn 04/09/22 @2100; however the order was edited to 750mg Q12H based off [employer] and never taken off hold. Pt went > 24 hours without another dose after 2g load on 04/08. I put in for 1 gram Q12H starting 04/10/22 0800 with a trough to be drawn 04/11/22 @0600 to reassess dosing.
[2022-04-10] MEDS: vancomycin HCL 1,000 MG in 0.9 % Sodium Chloride 250 ML 270 MG IV (07:57)
[2022-04-10 08:00] VITALS: BP 164/67; PULSE 63; RESP 18; TEMP 36.6; O2SAT 97
[2022-04-10] MEDS: allopurinoL 100 MG TABLET PO (08:15)
[2022-04-10] MEDS: lisinopriL 40 MG TABLET PO (08:15)
[2022-04-10] MEDS: hydroCHLOROthiazide 12.5 MG TABLET PO (08:16)
[2022-04-10 11:03] VITALS: BP 129/87; PULSE 95; RESP 18; TEMP 36.2; O2SAT 95
--- NOTE | 2022-04-10 11:03 | HO.PM.IMPN ---
Subjective Subjective Date of Service: 04/10/22 Interval History: no acute issues overnight. Essentially pain-free Review of Systems denies chest pain Denies shortness of breath Denies nausea vomiting diarrhea Physical Exam Vital Signs: Vital Signs: Last Vital Signs Temp 97.9 F 04/10/22 08:00 Pulse 63 04/10/22 08:00 Resp 18 04/10/22 08:00 BP 164/67 H 04/10/22 08:00 Pulse Ox 97 04/10/22 08:00 O2 Del Method 04/10/22 08:00 BMI result Body Mass Index 38.5 Const: Other: denies pain in his foot. No acute issues Resp: Other: clear to auscultation bilaterally. No rales rhonchi or wheezes Cardio: Other: no S4; positive S1-S2; no S3 murmurs rubs or gallops Extrem: Other: no edema bilaterally Objective Data Active Medications Acetaminophen (Acetaminophen 325 Mg Tablet) 650 mg PO Q6H PRN PRN Reason: Pain, Mild (Pain Scale 1-3) Allopurinol (Allopurinol 100 Mg Tablet) 100 mg PO DAILY [facility] Last Admin: 04/10/22 08:15 Dose: 100 mg Documented By: HI Docusate Sodium (Docusate Sodium 100 Mg Capsule) 100 mg PO DAILY PRN PRN Reason: Constipation Enoxaparin Sodium (Enoxaparin Sodium 40 Mg/0.4 Ml Syringe) 40 mg SUBCUT Q24H [facility]CLUDES [facility] Last Admin: 04/09/22 23:20 Dose: 40 mg Documented By: NICHOLAS Hydrochlorothiazide (Hydrochlorothiazide 12.5 Mg Tablet) 12.5 mg PO DAILY COUNT [facility]CLUD[facility]; Protocol Last Admin: 04/10/22 08:16 Dose: 12.5 mg Documented By: HI Piperacillin Sod/Tazobactam (Sod 3.375 gm/ Sodium Chloride) 50 mls @ 100 mls/hr IV Q6H [facility]CLUDES [facility] Last Infusion: 04/10/22 06:30 Dose: 0 mls/hr Documented By: MARCELA Sodium Chloride (Ns) 1,000 mls @ 100 mls/hr IVCONT .Q10H COUNT [facility]CLUDES [facility] Last Admin: 04/10/22 06:00 Dose: 100 mls/hr Documented By: MARCELA Vancomycin HCl 1,000 mg/ (Sodium Chloride) 270 mls @ 270 mls/hr IV Q12H [facility]CLUD[facility] Last Infusion: 04/10/22 09:20 Dose: 0 mls/hr Documented By: HI Lisinopril (Lisinopril 40 Mg Tablet) 40 mg PO DAILY [facility]; Protocol Last Admin: 04/10/22 08:15 Dose: 40 mg Documented By: HI Ondansetron HCl (Ondansetron Hcl 4 Mg/2 Ml Vial) 4 mg IVPUSH Q8H PRN PRN Reason: Nausea and Vomiting Pharmacy Consult (Consult Rx Perform Med Rec) 1 each MISCELLANE ONCE PRN PRN Reason: Consult order Pharmacy Consult (Consult Rx Vancomycin Dosing) 1 each MISCELLANE DAILY PRN PRN Reason: Consult order Pharmacy Consult (Consult Rx Vancomycin Dosing) 1 each MISCELLANE DAILY PRN PRN Reason: Consult order Sodium Chloride (0.9 % Sodium Chloride Flush 3 Ml Syringe) 3 ml IVFLUSH QSHIFT COUNT [facility]CLUDES [facility] Last Admin: 04/10/22 08:16 Dose: Not Given Documented By: HI Non-Admin Reason: IV Running Labs CBC & Chem 7: 04/10/22 05:49 04/10/22 05:49 Labs: Laboratory Results - last 24 hr 04/09/22 04/10/22 04/10/22 20:42 05:49 05:49 MCV 97.6 MCH 33.2 H MCHC 34.0 RDW 13.6 Plt Count 240 MPV 9.8 Immature Gran % (Auto) 0.3 Neut % (Auto) 65.8 Lymph % (Auto) 20.3 [facility] % (Auto) 8.9 Eos % (Auto) 3.8 Baso % (Auto) 0.9 Lymph # (Auto) 1.8 [facility] # (Auto) 0.8 Eos # (Auto) 0.3 Baso # (Auto) 0.1 Abs Immat Gran (auto) 0.03 Absolute Neuts (auto) 5.7 Absolute Nucleated RBC 0.000 Nucleated RBC % (auto) 0.0 Anion Gap 14 Estim Creat Clear Calc 77.6 Estimated GFR > 60 Fasting Glucose 113 H Calcium 8.5 Total Bilirubin 1.0 AST 25 ALT 26 Alkaline Phosphatase 73 Total Protein 6.6 Albumin 3.4 L Random Vancomycin 7.2 L Microbiology Microbiology Results: Microbiology 04/08/22 22:56 Blood Culture - Preliminary Blood - Venous No growth after 24 hours. 04/08/22 22:34 Blood Culture - Preliminary Blood - Venous No growth after 24 hours. 04/08/22 11:20 Blood Culture - Preliminary Blood - Venous No growth after 24 hours. 04/08/22 11:20 Blood Culture - Preliminary Blood - Venous No growth after 24 hours. Assessment and Plan (1) Acute osteomyelitis of toe of left foot: Status: Acute (2) HTN (hypertension): Status: Acute Plan 58-year-old male with past medical history of hypertension presents the hospital with complaints of nonhealing wound of left great toe 1.Left great toe osteomyelitis - verified by MRI - continue vanco and Zosyn (likely ertapenem on DC) - PICC line today - id consult 2.Hypertension - acceptable control on current therapy - continue home antihypertensive DVT prophylaxis: Lovenox will require ongoing hospitalization for IV antibiotics to treat osteomyelitis Quality Stroke Does the patient have a stroke diagnosis?: No VTE Prior VTE?: No VTE Risk Level:: Medical - moderate - high VTE Device Contraindication: Treatment Not Indicated VTE Drug Contraindication: N/A - Med Ordered
--- NOTE | 2022-04-10 13:21 | MHC.CM.PN ---
PER [facility] FOR ERTAPENEM 1GM Q24HRS PT WOULD HAVE A $615 WKLY COPAY AND $140 FOR SUPPLIES OOP COST, PT UNABLE TO MANAGE THAT COST, CM LOOKING INTO SSS FOR DAILY IV ABX, SSS WILLING TO DO THIS HOWEVER ASKING CM TO OBTAIN INSURANCE AUTH, CM SIDE LASTER STAPLE LOOKING INTO THIS, HOSPITALIST WILL FOLLOW-UP W/ID FOR ALTERNATE.
--- NOTE | 2022-04-10 14:10 | W.PM.IDCN ---
History of Present Illness Data of Consult Service Date: 04/10/22 Requesting physician: Callum Locke Primary Care Provider: Fausto Pat [facility] HPI Reason for consult: osteomyelitis He presents with toe redness and pain ,worsening after he dropped a log on it one month ago. MRI suggestive of osteomyelitis distal area. He has no positive cultures. Review of Systems Review of Systems: Yes all other systems are reviewed and are negative PMFSH Past Medical History Medical History Elevated TSH Gout HTN (hypertension) Obesity Screening PSA (prostate specific antigen) Varicose veins of both lower extremities Family History Family History Father HTN (hypertension) Mother Parkinsons disease Family history: reviewed and not pertinent Surgical History Surgical History Hx of colonoscopy Hx of vascular surgery Social History Social History Household Members: Spouse Housing: House Are you a primary medicare nurse to a significant other at home: No Do you presently have visiting nurse or other home services: No Alcohol intake: current Alcohol intake frequency: a few times a week Patient Tobacco Use Status: Never used Tobacco Advance Directives Date on File: 04/09/22 service: No Current occupational status: employed and retired Meds Allergies Allergy/AdvReac Type Severity Reaction Status Date / Time No Known Allergies Allergy Verified 04/08/22 09:47 [No Known Allergies*] Active Medications: Current Medications Acetaminophen (Acetaminophen 325 Mg Tablet) 650 mg PO Q6H PRN PRN Reason: Pain, Mild (Pain Scale 1-3) Allopurinol (Allopurinol 100 Mg Tablet) 100 mg PO DAILY BRI Last Admin: 04/10/22 08:15 Dose: 100 mg Docusate Sodium (Docusate Sodium 100 Mg Capsule) 100 mg PO DAILY PRN PRN Reason: Constipation Enoxaparin Sodium (Enoxaparin Sodium 40 Mg/0.4 Ml Syringe) 40 mg SUBCUT Q24H BRI Last Admin: 04/09/22 23:20 Dose: 40 mg Hydrochlorothiazide (Hydrochlorothiazide 12.5 Mg Tablet) 12.5 mg PO DAILY BRI; Protocol Last Admin: 04/10/22 08:16 Dose: 12.5 mg Piperacillin Sod/Tazobactam (Sod 3.375 gm/ Sodium Chloride) 50 mls @ 100 mls/hr IV Q6H [facility] Last Infusion: 04/10/22 13:30 Dose: Infused Sodium Chloride (Ns) 1,000 mls @ 100 mls/hr IVCONT .Q10H [facility] Last Admin: 04/10/22 06:00 Dose: 100 mls/hr Vancomycin HCl 1,000 mg/ (Sodium Chloride) 270 mls @ 270 mls/hr IV Q12H [facility] Last Infusion: 04/10/22 09:20 Dose: Infused Lisinopril (Lisinopril 40 Mg Tablet) 40 mg PO DAILY [facility]; Protocol Last Admin: 04/10/22 08:15 Dose: 40 mg Ondansetron HCl (Ondansetron Hcl 4 Mg/2 Ml Vial) 4 mg IVPUSH Q8H PRN PRN Reason: Nausea and Vomiting Pharmacy Consult (Consult Rx Perform Med Rec) 1 each MISCELLANE ONCE PRN PRN Reason: Consult order Pharmacy Consult (Consult Rx Vancomycin Dosing) 1 each MISCELLANE DAILY PRN PRN Reason: Consult order Pharmacy Consult (Consult Rx Vancomycin Dosing) 1 each MISCELLANE DAILY PRN PRN Reason: Consult order Sodium Chloride (0.9 % Sodium Chloride Flush 3 Ml Syringe) 3 ml IVFLUSH QSHIFT [facility] Last Admin: 04/10/22 08:16 Dose: Not Given Physical Exam Vital Signs: Vital Signs: Last Vital Signs Temp 97.1 F 04/10/22 11:03 Pulse 95 04/10/22 11:03 Resp 18 04/10/22 11:03 BP 129/87 04/10/22 11:03 Pulse Ox 95 04/10/22 11:03 O2 Del Method 04/10/22 11:03 BMI result Body Mass Index 38.5 Const: General: cooperative HEENT: Head: Yes normal to inspection Face and sinus: Yes normal facial exam Mouth: Normal oral and palatal mucosa present Teeth and gingiva: dentition normal Eyes: General: appearance normal, both eyes and all related structures Pupils: Equal, round and reactive pupils present Resp: Effort & Inspection: normal respiratory effort Cardio: Rate: regular rate Rhythm: regular rhythm GI: Palpation (GI): Soft to palpation and nontender : General: Yes no CVA tenderness Back/Spine/Pelvis: Back: no CVA tenderness Skin: General skin exam: no rashes or lesions noted Neuro: General: moves all extremities Cranial nerves: Yes Equal, round and reactive pupils present Extrem: Other: dark swollen toe area left great toe pulses plus 3 Psych: Appearance: grossly normal Results Labs CBC & Chem 7: 04/10/22 05:49 04/10/22 05:49 Labs: Short CBC 04/10/22 Range/Units 05:49 WBC 8.7 (4.8-10.8) X10*3/uL Hgb 13.7 L (14.0-18.0) g/dl Hct 40.3 L (42.0-52.0) % Plt Count 240 (160-400) X10*3/uL BMP 04/10/22 05:49 Sodium 141 Potassium 4.7 Chloride 107 Carbon Dioxide 25 BUN 10 Creatinine 1.19 Calcium 8.5 Liver Function 04/10/22 Range/Units 05:49 Total Bilirubin 1.0 (0.0-1.0) mg/dL AST 25 (5-37) U/L ALT 26 (0-40) U/L Alkaline Phosphatase 73 (39-117) U/L Albumin 3.4 L (3.5-5.0) g/dL Microbiology Microbiology Results: Microbiology 04/08/22 11:20 Blood - Venous Blood Culture - Preliminary No growth after 48 hours. 04/08/22 11:20 Blood - Venous Blood Culture - Preliminary No growth after 48 hours. 04/08/22 22:56 Blood - Venous Blood Culture - Preliminary No growth after 24 hours. 04/08/22 22:34 Blood - Venous Blood Culture - Preliminary No growth after 24 hours. Assessment and Plan (1) Acute osteomyelitis of toe of left foot: Status: Acute some destruction of toe area may be due to injury but there is concern over strep,staph (2) Toe infection: Status: Acute (3) Elevated fasting blood sugar: Status: Acute Plan Continue Ertapenem or Ceftriaxone for six weeks. Follow in office.
--- NOTE | 2022-04-10 14:19 | P.DS_ITS ---
DS: Providers Provider Date of Service: 04/10/22 Date of admission: 04/08/22 22:39 Date of discharge: 04/10/22 Primary care physician: MAURILIO Cortez Consults: 04/08/22 22:32 Consult to Infectious Diseases Routine Consulting Provider: Julissa Lim Reason for consultation: osteomyelitis Has provider been notified: No 04/08/22 22:37 Consult to General Surgery Routine Consulting Provider: Karli Short Reason for consultation: wound DS: Diagnosis Discharge Diagnosis (1) Acute osteomyelitis of toe of left foot: Status: Acute (2) Toe infection: Status: Acute (3) Elevated fasting blood sugar: Status: Acute DS: Summary Hospital Course Hospital Course: This is a 66 year old male with past medical history of hypertension, gout, who presents to the hospital with complaints of left big toe nonhealing wound.? Patient reports that about 4 weeks ago he dropped a 200 lb piece of wood on his left foot that fell directly on his big toe, he had some mild pain but he was a able to ambulate and did not think much of it.? He did not seek any medical attention at the time.? He reports that he did notice swelling and splinting of his big toe nail bed but he managed at home for 2 weeks.? After 2 weeks is stopped getting better, started having a whole and draining serosanguineous fluid.? He denies any fever or chills, he reports that he decided to come to the hospital because was not getting better.? He also noted some redness and swelling on his foot coming to his ankle area.? He denies any headache no change in vision no shortness of breath no chest pain, no abdominal pain nausea or vomiting, no diarrhea constipation, no urinary symptoms and no other extremity edema besides mention.? On arrival to the ED patient hemodynamically stable with elevated blood pressure otherwise vitals unremarkable.? Labs reviewed showed WBC count of 8.4, hemoglobin of 14.9, hematocrit 42, ESR 34, CRP of 1.69 Toe x-ray shows subtle cortical irregularities involving the undersurface of the tuft of the 1st toe which may represent osteomyelitis Hospital Course Admitted to general medical floor and started on ceftriaxone and vancomycin. MRI confirms osteomyelitis left great toe. Seen in consultation by Infectious Disease who recommends of ertapenem 1 g daily for 6 weeks. PICC line placed patient will receive through short-stay surgery in follow-up with his PCP in 2 weeks Time Spent with Patient Time attestation: Total time spent providing and/or coordinating discharge services: Discharge coordination time: Greater than 30 minutes Quality: Safe Use of Opioids Does Pt have an Active Cancer Diagnosis on the Problem List?: No Quality: Stroke Does the patient have a stroke diagnosis?: No Physical Exam Vital Signs: Vital Signs: Last Vital Signs Temp 97.1 F 04/10/22 11:03 Pulse 95 04/10/22 11:03 Resp 18 04/10/22 11:03 BP 129/87 04/10/22 11:03 Pulse Ox 95 04/10/22 11:03 O2 Del Method 04/10/22 11:03 BMI result Body Mass Index 38.5 Const: Other: denies pain in his foot. No acute issues Resp: Other: clear to auscultation bilaterally. No rales rhonchi or wheezes Cardio: Other: no S4; positive S1-S2; no S3 murmurs rubs or gallops Extrem: Other: no edema bilaterally DS: Data Data Completed and Pending Labs on day of discharge: Laboratory Results - last 24 hr 04/09/22 04/10/22 04/10/22 20:42 05:49 05:49 WBC 8.7 RBC 4.13 L Hgb 13.7 L Hct 40.3 L MCV 97.6 MCH 33.2 H MCHC 34.0 RDW 13.6 Plt Count 240 MPV 9.8 Immature Gran % (Auto) 0.3 Neut % (Auto) 65.8 Lymph % (Auto) 20.3 [place] % (Auto) 8.9 Eos % (Auto) 3.8 Baso % (Auto) 0.9 Lymph # (Auto) 1.8 [place] # (Auto) 0.8 Eos # (Auto) 0.3 Baso # (Auto) 0.1 Abs Immat Gran (auto) 0.03 Absolute Neuts (auto) 5.7 Absolute Nucleated RBC 0.000 Nucleated RBC % (auto) 0.0 Sodium 141 Potassium 4.7 Chloride 107 Carbon Dioxide 25 Anion Gap 14 BUN 10 Creatinine 1.19 Estim Creat Clear Calc 77.6 Estimated GFR > 60 Fasting Glucose 113 H Calcium 8.5 Total Bilirubin 1.0 AST 25 ALT 26 Alkaline Phosphatase 73 Total Protein 6.6 Albumin 3.4 L Random Vancomycin 7.2 L Preliminary micro results at discharge 04/08/22 11:20 Blood Culture - Preliminary Blood - Venous No growth after 48 hours. 04/08/22 11:20 Blood Culture - Preliminary Blood - Venous No growth after 48 hours. 04/08/22 22:56 Blood Culture - Preliminary Blood - Venous No growth after 24 hours. 04/08/22 22:34 Blood Culture - Preliminary Blood - Venous No growth after 24 hours. Discharge Plan Discharge Patient Disposition: Home, Self-Care Discharge Diagnosis: osteomyelitis left great toe Referrals: Fausto Pat, FOLDER STITCHER OPERATOR-BC [Primary Care Provider] - 1 Week Discharge Medications: New ertapenem 1 gram recon soln 1 g IM DAILY Qty: 42 0RF Continued allopurinol 100 mg tablet 100 mg PO DAILY 90 Days Qty: 90 0RF hydrochlorothiazide 12.5 mg tablet 12.5 mg PO DAILY 30 Days Qty: 30 3RF lisinopril 40 mg tablet 40 mg PO DAILY Qty: 90 0RF Diet: Advance to usual diet Activity on Discharge: As tolerated Stand Alone Forms: Patient Portal Discharge page Care Plan Goals: ertapenem 1 g daily for 6 weeks. To be given in short-stay surgery daily Health Concerns: continue outpatient meds Plan of Treatment: follow-up with PCP 2 weeks Assessment: see discharge summary
--- NOTE | 2022-04-10 14:36 | MHC.CM.PN ---
PT MEDICALY CLEARED FOR D/C HOME W/6WKS IV ERTAPENEM, PT WILL GO TO SHORT STAY DAILY, STARTING AT 10AM TOMORROW OOP COST IS NOT AFFORDABLE, PT GETTING PICC LINE PLACED AT TIME OF THIS NOTE, PT WILL GET A FIRST DOSE OF ERTAPENEM AND THEN WILL D/C HOME W/FAMILY FOR TRANSPORT.
[2022-04-10 16:00] VITALS: BP 158/86; PULSE 58; RESP 18; TEMP 36; O2SAT 99
[2022-04-10] MEDS: Ertapenem Sodium 1 GM in 0.9 % Sodium Chloride 50 ML IV (16:51)
--- NOTE | 2022-04-10 17:08 | P.PICC_ITS ---
PICC Line Insertion NPICC Diagnosis: [Left foot wound] Indication: jail antibiotics needed Pertinent Labs: reviewed Technique: Following informed consent including risks, benefits and alternatives and using sterile technique including cap and mask, sterile gown, glove and drape, the right arm was prepped and draped in the usual sterile fashion of full barrier technique with G. Following completion of [place] Protocol the skin and soft tissues were anesthetized with 1% Lidocaine plain. Using ultrasound guidance, right brachial vein access was obtained by Demar Simons RN, but unable to pass guidewire. Right Basilic vein was also attempted by Annabelle Kim RN, but unsuccessful. Right brachial vein was accessed by Dr Erin Luis. Over an 0.018 wire through peel-away sheath, a [4FR single lumen]PASV PICC line was positioned. Catheter length is 41 CM internal length, 0 CM external length, for a total trimmed length of 41 CM. The procedure was performed in [S272]. Tip verification was performed by Ksenia Pool with Sherlock 3CG. Tip located in SVC. Ultrasound was used to document vein patency and for needle entry. A formal ultrasound picture and cardiac rhythm strip was recorded. Vascular Python Engineer has released the line for use and it is currently dressed with a StatLock, Tegaderm, and CHG disc. Verification has been performed for blood return and line patency. Arm Circumference: 40 CM Equipment: [employer] Power PICC Solo Catheter Type: 4FR single lumen PASV PICC Lot #: [id number]
== END 2022-04-10 18:40 | disposition home or self-care (01) | DRG 541 ==
LOC: HO.ED 22:17 → HO.EDOVER 22:56 → HO.S3 04-09 23:36
PROVIDERS: Emergency Medicine; Admitting Provider Internal Medicine; Emergency Provider Emergency Medicine; PCP Nurse Practitioner Family; Visit Provider Hospitalist
DX: M86.172 Other acute osteomyelitis, left ankle and foot (principal); M10.9 Gout, unspecified; I10 Essential (primary) hypertension; Z20.822 Contact with and (suspected) exposure to COVID-19; Z79.899 Other long term (current) drug therapy
CPT/HCPCS: 36415; 36573; 73660; 73720; 80048; 80053; 80202; 83036; 83605; 85025; 85652; 86140; 87040; 87635; 99285; A9585; C1751; J1335; J1650; J2543; J3370

== ENCOUNTER 2022-04-11 09:51 | Outpatient (REF) | payer MEDICARE, SELFPAY | END 2022-04-11 09:52 | disposition home or self-care (01) | LOC: HO.MDS 09:51 | PROVIDERS: Visit Provider Hospitalist | DX: Z45.2 Encounter for adjustment and management of vascular access device (principal); M86.9 Osteomyelitis, unspecified | CPT/HCPCS: 96365; J1335 ==

== ENCOUNTER 2022-04-12 09:51 | Outpatient (REF) | payer MEDICARE, SELFPAY | END 2022-04-12 09:52 | disposition home or self-care (01) | LOC: HO.MDS 09:51 | PROVIDERS: Visit Provider Hospitalist | DX: Z45.2 Encounter for adjustment and management of vascular access device (principal); M86.9 Osteomyelitis, unspecified | CPT/HCPCS: 96365; J1335 ==

== ENCOUNTER 2022-04-13 13:56 | Outpatient (REF) | payer MEDICARE, SELFPAY | END 2022-04-13 13:57 | disposition home or self-care (01) | LOC: HO.MDS 13:56 | PROVIDERS: Visit Provider Hospitalist | DX: Z45.2 Encounter for adjustment and management of vascular access device (principal); M86.9 Osteomyelitis, unspecified | CPT/HCPCS: 96365; J1335 ==

== ENCOUNTER 2022-04-14 14:27 | Outpatient (REF) | payer MEDICARE, SELFPAY | END 2022-04-14 14:28 | disposition home or self-care (01) | LOC: HO.MDS 14:27 | PROVIDERS: Visit Provider Hospitalist | DX: Z45.2 Encounter for adjustment and management of vascular access device (principal); M86.9 Osteomyelitis, unspecified | CPT/HCPCS: 96365; J1335 ==

== ENCOUNTER 2022-04-15 11:58 | Outpatient (REF) | payer MEDICARE, SELFPAY | END 2022-04-15 11:59 | disposition home or self-care (01) | LOC: HO.MDS 11:58 | PROVIDERS: Visit Provider Hospitalist | DX: Z45.2 Encounter for adjustment and management of vascular access device (principal); M86.9 Osteomyelitis, unspecified | CPT/HCPCS: 96365; J1335 ==

== ENCOUNTER 2022-04-16 14:26 | Outpatient (REF) | payer MEDICARE, SELFPAY | END 2022-04-16 14:27 | disposition home or self-care (01) | LOC: HO.MDS 14:26 | PROVIDERS: Visit Provider Hospitalist | DX: Z45.2 Encounter for adjustment and management of vascular access device (principal); M86.9 Osteomyelitis, unspecified | CPT/HCPCS: 96365; J1335 ==

== ENCOUNTER 2022-04-17 13:47 | Outpatient (REF) | payer MEDICARE, SELFPAY | END 2022-04-17 13:48 | disposition home or self-care (01) | LOC: HO.MDS 13:47 | PROVIDERS: Visit Provider Hospitalist | DX: Z45.2 Encounter for adjustment and management of vascular access device (principal); M86.9 Osteomyelitis, unspecified | CPT/HCPCS: 96365; J1335 ==

== ENCOUNTER 2022-04-18 09:55 | Outpatient (REF) | payer MEDICARE, SELFPAY | END 2022-04-18 09:56 | disposition home or self-care (01) | LOC: HO.MDS 09:55 | PROVIDERS: Visit Provider Hospitalist | DX: Z45.2 Encounter for adjustment and management of vascular access device (principal); M86.9 Osteomyelitis, unspecified | CPT/HCPCS: 96365; J1335 ==

== ENCOUNTER 2022-04-19 09:49 | Outpatient (REF) | payer MEDICARE, SELFPAY | END 2022-04-19 09:50 | disposition home or self-care (01) | LOC: HO.MDS 09:49 | PROVIDERS: PCP Nurse Practitioner Family; Visit Provider Hospitalist | DX: Z45.2 Encounter for adjustment and management of vascular access device (principal); M86.9 Osteomyelitis, unspecified | CPT/HCPCS: 96365; J1335 ==

== ENCOUNTER 2022-04-20 09:46 | Outpatient (REF) | payer MEDICARE, SELFPAY | END 2022-04-20 09:47 | disposition home or self-care (01) | LOC: HO.MDS 09:46 | PROVIDERS: Visit Provider Hospitalist | DX: Z45.2 Encounter for adjustment and management of vascular access device (principal); M86.9 Osteomyelitis, unspecified | CPT/HCPCS: 96365; J1335 ==

== ENCOUNTER 2022-04-21 14:13 | Outpatient (REF) | payer MEDICARE, SELFPAY | END 2022-04-21 14:14 | disposition home or self-care (01) | LOC: HO.MDS 14:13 | PROVIDERS: Visit Provider Hospitalist | DX: Z45.2 Encounter for adjustment and management of vascular access device (principal); M86.9 Osteomyelitis, unspecified | CPT/HCPCS: 96365; J1335 ==

== ENCOUNTER 2022-04-22 14:26 | Outpatient (REF) | payer MEDICARE, SELFPAY ==
[2022-04-22 15:04] LABS: Hematocrit 42.3 % (42.0-52.0); Hemoglobin 14.5 g/dl (14.0-18.0); Mean Corpuscular HGB Conc 34.3 g/dl (31.0-36.0); Mean Corpuscular Hemoglobin 33.3 pg (27.0-33.0); Mean Platelet Volume 9.6 fL (9.4-12.4); Platelet Count 277 X10*3/uL (160-400); Red Blood Count 4.36 X10*6/uL (4.60-5.80); Red Cell Distribution Width 13.4 % (11.0-16.0); White Blood Count 9.5 X10*3/uL (4.8-10.8)
[2022-04-22 20:09] LABS: Alanine Aminotransferase 33 U/L (0-40); Albumin Level 3.7 g/dL (3.5-5.0); Alkaline Phosphatase 95 U/L (39-117); Anion Gap 14 (12-20); Aspartate Amino Transferase 31 U/L (5-37); Bilirubin Total 0.8 mg/dL (0.0-1.0); Blood Urea Nitrogen 16 mg/dL (9-16); Calcium 9.3 mg/dL (8.4-10.2); Carbon Dioxide 26 mmol/L (22-29); Chloride 101 mmol/L (96-108); Estimated Glomerular Filt Rate > 60; Glucose Random 114 mg/dL (60-115); Potassium 4.3 mmol/L (3.3-5.1); Sodium 137 mmol/L (135-145); Total Protein 7.4 g/dL (6.5-8.0)
== END 2022-04-22 14:27 | disposition home or self-care (01) ==
LOC: HO.MDS 14:26
PROVIDERS: PCP Nurse Practitioner Family; Visit Provider Hospitalist
DX: Z45.2 Encounter for adjustment and management of vascular access device (principal); M86.9 Osteomyelitis, unspecified
CPT/HCPCS: 36415; 80053; 85027; 96365; J1335

== ENCOUNTER 2022-04-23 14:21 | Outpatient (REF) | payer MEDICARE, SELFPAY | END 2022-04-23 14:22 | disposition home or self-care (01) | LOC: HO.MDS 14:21 | PROVIDERS: Visit Provider Hospitalist | DX: Z45.2 Encounter for adjustment and management of vascular access device (principal); M86.9 Osteomyelitis, unspecified | CPT/HCPCS: 96365; J1335 ==

== ENCOUNTER 2022-04-24 14:23 | Outpatient (REF) | payer MEDICARE, SELFPAY | END 2022-04-24 14:24 | disposition home or self-care (01) | LOC: HO.MDS 14:23 | PROVIDERS: Visit Provider Hospitalist | DX: Z45.2 Encounter for adjustment and management of vascular access device (principal); M86.9 Osteomyelitis, unspecified | CPT/HCPCS: 96365; J1335 ==

== ENCOUNTER 2022-04-25 09:58 | Outpatient (REF) | payer MEDICARE, SELFPAY | END 2022-04-25 09:59 | disposition home or self-care (01) | LOC: HO.MDS 09:58 | PROVIDERS: PCP Nurse Practitioner Family; Visit Provider Hospitalist | DX: Z45.2 Encounter for adjustment and management of vascular access device (principal); M86.9 Osteomyelitis, unspecified | CPT/HCPCS: 96365; J1335 ==

== ENCOUNTER 2022-04-26 09:41 | Outpatient (REF) | payer MEDICARE, SELFPAY | END 2022-04-26 09:42 | disposition home or self-care (01) | LOC: HO.MDS 09:41 | PROVIDERS: Visit Provider Hospitalist | DX: Z45.2 Encounter for adjustment and management of vascular access device (principal); M86.9 Osteomyelitis, unspecified | CPT/HCPCS: 96365; J1335 ==

== ENCOUNTER 2022-04-27 13:57 | Outpatient (REF) | payer MEDICARE, SELFPAY ==
[2022-04-27 14:40] LABS: Hematocrit 40.8 % (42.0-52.0); Hemoglobin 14.2 g/dl (14.0-18.0); Mean Corpuscular HGB Conc 34.8 g/dl (31.0-36.0); Mean Corpuscular Hemoglobin 32.9 pg (27.0-33.0); Mean Corpuscular Volume 94.7 fL (80.0-98.0); Mean Platelet Volume 9.9 fL (9.4-12.4); Platelet Count 283 X10*3/uL (160-400); Red Blood Count 4.31 X10*6/uL (4.60-5.80); Red Cell Distribution Width 13.3 % (11.0-16.0); White Blood Count 8.9 X10*3/uL (4.8-10.8)
== END 2022-04-27 13:58 | disposition home or self-care (01) ==
LOC: HO.MDS 13:57
PROVIDERS: Visit Provider Hospitalist
DX: Z45.2 Encounter for adjustment and management of vascular access device (principal); M86.9 Osteomyelitis, unspecified
CPT/HCPCS: 36415; 85027; 96365; J1335

== ENCOUNTER 2022-04-28 14:00 | Outpatient (REF) | payer MEDICARE, SELFPAY | END 2022-04-28 14:01 | disposition home or self-care (01) | LOC: HO.MDS 14:00 | PROVIDERS: Visit Provider Hospitalist | DX: Z45.2 Encounter for adjustment and management of vascular access device (principal); M86.9 Osteomyelitis, unspecified | CPT/HCPCS: 96365; J1335 ==

== ENCOUNTER 2022-04-29 13:53 | Outpatient (REF) | payer MEDICARE, SELFPAY | END 2022-04-29 13:54 | disposition home or self-care (01) | LOC: HO.MDS 13:53 | PROVIDERS: Visit Provider Hospitalist | DX: Z45.2 Encounter for adjustment and management of vascular access device (principal); M86.9 Osteomyelitis, unspecified | CPT/HCPCS: 96365; J1335 ==

== ENCOUNTER 2022-04-30 13:56 | Outpatient (REF) | payer MEDICARE, SELFPAY | END 2022-04-30 13:57 | disposition home or self-care (01) | LOC: HO.MDS 13:56 | PROVIDERS: PCP Nurse Practitioner Family; Visit Provider Hospitalist | DX: Z45.2 Encounter for adjustment and management of vascular access device (principal); M86.9 Osteomyelitis, unspecified | CPT/HCPCS: 96365; J1335 ==

== ENCOUNTER 2022-05-01 14:14 | Outpatient (REF) | payer MEDICARE, SELFPAY | END 2022-05-01 14:15 | disposition home or self-care (01) | LOC: HO.MDS 14:14 | PROVIDERS: Visit Provider Hospitalist | DX: Z45.2 Encounter for adjustment and management of vascular access device (principal); M86.9 Osteomyelitis, unspecified; M10.9 Gout, unspecified | CPT/HCPCS: 96365; J1335 ==

== ENCOUNTER 2022-05-02 09:52 | Outpatient (REF) | payer MEDICARE, SELFPAY | END 2022-05-02 09:53 | disposition home or self-care (01) | LOC: HO.MDS 09:52 | PROVIDERS: PCP Nurse Practitioner Family; Visit Provider Hospitalist | DX: Z45.2 Encounter for adjustment and management of vascular access device (principal); M86.9 Osteomyelitis, unspecified; M10.9 Gout, unspecified | CPT/HCPCS: 96365; J1335 ==

== ENCOUNTER 2022-05-03 09:47 | Outpatient (REF) | payer MEDICARE, SELFPAY | END 2022-05-03 09:48 | disposition home or self-care (01) | LOC: HO.MDS 09:47 | PROVIDERS: PCP Nurse Practitioner Family; Visit Provider Hospitalist | DX: Z45.2 Encounter for adjustment and management of vascular access device (principal); M86.9 Osteomyelitis, unspecified; M10.9 Gout, unspecified | CPT/HCPCS: 96365; J1335 ==

== ENCOUNTER 2022-05-04 13:59 | Outpatient (REF) | payer MEDICARE, SELFPAY | END 2022-05-04 14:00 | disposition home or self-care (01) | LOC: HO.MDS 13:59 | PROVIDERS: Visit Provider Hospitalist | DX: Z45.2 Encounter for adjustment and management of vascular access device (principal); M86.9 Osteomyelitis, unspecified | CPT/HCPCS: 96365; J1335 ==

== ENCOUNTER 2022-05-05 13:59 | Outpatient (REF) | payer MEDICARE, SELFPAY | END 2022-05-05 14:00 | disposition home or self-care (01) | LOC: HO.MDS 13:59 | PROVIDERS: Visit Provider Hospitalist | DX: Z45.2 Encounter for adjustment and management of vascular access device (principal); M86.9 Osteomyelitis, unspecified | CPT/HCPCS: 96365; J1335 ==

== ENCOUNTER 2022-05-06 13:55 | Outpatient (REF) | payer MEDICARE, SELFPAY | END 2022-05-06 13:56 | disposition home or self-care (01) | LOC: HO.MDS 13:55 | PROVIDERS: Visit Provider Hospitalist | DX: Z45.2 Encounter for adjustment and management of vascular access device (principal); M86.9 Osteomyelitis, unspecified | CPT/HCPCS: 96365; J1335 ==

== ENCOUNTER 2022-05-07 14:00 | Outpatient (REF) | payer MEDICARE, SELFPAY | END 2022-05-07 14:01 | disposition home or self-care (01) | LOC: HO.MDS 14:00 | PROVIDERS: PCP Nurse Practitioner Family; Visit Provider Hospitalist | DX: Z45.2 Encounter for adjustment and management of vascular access device (principal); M86.9 Osteomyelitis, unspecified | CPT/HCPCS: 96365; J1335 ==

== ENCOUNTER 2022-05-08 13:55 | Outpatient (REF) | payer MEDICARE, SELFPAY ==
[2022-05-08 14:11] LABS: MANUAL DIFF FLAG NO
[2022-05-08 14:13] LABS: Basophils Absolute Auto 0.1 X10*3/uL (0.0-0.2); Basophils Percent Auto 1.6 % (0-2); Eosinophils Absolute Auto 0.4 X10*3/uL (0.0-0.4); Eosinophils Percent Auto 4.9 % (0-4); Hematocrit 44.3 % (42.0-52.0); Hemoglobin 15.5 g/dl (14.0-18.0); Imm Gran Abs Auto 0.05 X10*3/uL (0.00-0.03); Imm Gran Pct Auto 0.6 % (0.0-0.4); Lymphocytes Absolute Auto 1.8 X10*3/uL (1.2-4.9); Lymphocytes Percent Auto 21.5 % (20-40); Mean Corpuscular Hemoglobin 33.6 pg (27.0-33.0); Mean Corpuscular Volume 96.1 fL (80.0-98.0); Mean Platelet Volume 9.9 fL (9.4-12.4); Monocytes Absolute Auto 0.7 X10*3/uL (0.1-1.2); Monocytes Percent Auto 9.1 % (2-11); Neutrophils Absolute Auto 5.1 x10*3/uL (2.0-8.3); Neutrophils Percent Auto 62.3 % (45-73); Platelet Count 242 X10*3/uL (160-400); Red Blood Count 4.61 X10*6/uL (4.60-5.80); Red Cell Distribution Width 13.5 % (11.0-16.0); White Blood Count 8.2 X10*3/uL (4.8-10.8)
[2022-05-08 14:36] LABS: Alanine Aminotransferase 42 U/L (0-40); Albumin Level 3.9 g/dL (3.5-5.0); Alkaline Phosphatase 103 U/L (39-117); Anion Gap 16 (12-20); Aspartate Amino Transferase 39 U/L (5-37); Bilirubin Total 0.7 mg/dL (0.0-1.0); Blood Urea Nitrogen 16 mg/dL (9-16); Calcium 9.7 mg/dL (8.4-10.2); Carbon Dioxide 25 mmol/L (22-29); Chloride 102 mmol/L (96-108); Estimated Glomerular Filt Rate > 60; Glucose Random 137 mg/dL (60-115); Potassium 4.9 mmol/L (3.3-5.1); Sodium 138 mmol/L (135-145)
== END 2022-05-08 13:56 | disposition home or self-care (01) ==
LOC: HO.MDS 13:55
PROVIDERS: Visit Provider Hospitalist
DX: Z45.2 Encounter for adjustment and management of vascular access device (principal); M86.9 Osteomyelitis, unspecified
CPT/HCPCS: 36415; 80053; 85025; J1335

== ENCOUNTER 2022-05-09 08:48 | Outpatient (REF) | payer MEDICARE, SELFPAY | END 2022-05-09 08:49 | disposition home or self-care (01) | LOC: HO.MDS 08:48 | PROVIDERS: Visit Provider Hospitalist | DX: Z45.2 Encounter for adjustment and management of vascular access device (principal); M86.9 Osteomyelitis, unspecified | CPT/HCPCS: 96365; J1335 ==

== ENCOUNTER 2022-05-10 08:46 | Outpatient (REF) | payer MEDICARE, SELFPAY | END 2022-05-10 08:47 | disposition home or self-care (01) | LOC: HO.LAB 08:46 | PROVIDERS: Visit Provider Hospitalist | DX: Z13.89 Encounter for screening for other disorder (principal) | CPT/HCPCS: 96365; J1335 ==

== ENCOUNTER 2022-05-11 13:58 | Outpatient (REF) | payer MEDICARE, SELFPAY | END 2022-05-11 13:59 | disposition home or self-care (01) | LOC: HO.MDS 13:58 | PROVIDERS: Visit Provider Hospitalist | DX: Z45.2 Encounter for adjustment and management of vascular access device (principal); M86.9 Osteomyelitis, unspecified | CPT/HCPCS: 96365; J1335 ==

== ENCOUNTER 2022-05-12 13:55 | Outpatient (REF) | payer MEDICARE, SELFPAY | END 2022-05-12 13:56 | disposition home or self-care (01) | LOC: HO.MDS 13:55 | PROVIDERS: Visit Provider Hospitalist | DX: Z45.2 Encounter for adjustment and management of vascular access device (principal); M86.9 Osteomyelitis, unspecified | CPT/HCPCS: 96365; J1335 ==

== ENCOUNTER 2022-05-13 13:58 | Outpatient (REF) | payer MEDICARE, SELFPAY | END 2022-05-13 13:59 | disposition home or self-care (01) | LOC: HO.MDS 13:58 | PROVIDERS: Visit Provider Hospitalist | DX: Z45.2 Encounter for adjustment and management of vascular access device (principal); M86.9 Osteomyelitis, unspecified | CPT/HCPCS: 96365; J1335 ==

== ENCOUNTER 2022-05-14 13:56 | Outpatient (REF) | payer MEDICARE, SELFPAY | END 2022-05-14 13:57 | disposition home or self-care (01) | LOC: HO.MDS 13:56 | PROVIDERS: Visit Provider Hospitalist | DX: Z45.2 Encounter for adjustment and management of vascular access device (principal); M86.9 Osteomyelitis, unspecified | CPT/HCPCS: 96365; J1335 ==

== ENCOUNTER 2022-05-15 13:54 | Outpatient (REF) | payer MEDICARE, SELFPAY | END 2022-05-15 13:55 | disposition home or self-care (01) | LOC: HO.MDS 13:54 | PROVIDERS: Visit Provider Hospitalist | DX: Z45.2 Encounter for adjustment and management of vascular access device (principal); M86.9 Osteomyelitis, unspecified | CPT/HCPCS: 96365; J1335 ==

== ENCOUNTER 2022-05-16 08:48 | Outpatient (REF) | payer MEDICARE, SELFPAY | END 2022-05-16 08:49 | disposition home or self-care (01) | LOC: HO.MDS 08:48 | PROVIDERS: PCP Nurse Practitioner Family; Visit Provider Hospitalist | DX: Z45.2 Encounter for adjustment and management of vascular access device (principal); M86.9 Osteomyelitis, unspecified | CPT/HCPCS: 96365; J1335 ==

== ENCOUNTER 2022-05-17 08:47 | Outpatient (REF) | payer MEDICARE, SELFPAY | END 2022-05-17 08:48 | disposition home or self-care (01) | LOC: HO.MDS 08:47 | PROVIDERS: PCP Nurse Practitioner Family; Visit Provider Hospitalist | DX: Z45.2 Encounter for adjustment and management of vascular access device (principal); M86.172 Other acute osteomyelitis, left ankle and foot | CPT/HCPCS: 96365; J1335 ==

== ENCOUNTER 2022-05-18 13:56 | Outpatient (REF) | payer MEDICARE, SELFPAY | END 2022-05-18 13:57 | disposition home or self-care (01) | LOC: HO.MDS 13:56 | PROVIDERS: Visit Provider Hospitalist | DX: Z45.2 Encounter for adjustment and management of vascular access device (principal); M86.9 Osteomyelitis, unspecified | CPT/HCPCS: 96365; J1335 ==

== ENCOUNTER 2022-05-19 13:54 | Outpatient (REF) | payer MEDICARE, SELFPAY | END 2022-05-19 13:55 | disposition home or self-care (01) | LOC: HO.MDS 13:54 | PROVIDERS: Visit Provider Hospitalist | DX: Z45.2 Encounter for adjustment and management of vascular access device (principal); M86.9 Osteomyelitis, unspecified | CPT/HCPCS: 96365; J1335 ==

== ENCOUNTER 2022-05-20 13:57 | Outpatient (REF) | payer MEDICARE, SELFPAY | END 2022-05-20 13:58 | disposition home or self-care (01) | LOC: HO.MDS 13:57 | PROVIDERS: Visit Provider Hospitalist | DX: Z45.2 Encounter for adjustment and management of vascular access device (principal); M86.9 Osteomyelitis, unspecified | CPT/HCPCS: 96365; J1335 ==

== ENCOUNTER 2022-05-21 13:59 | Outpatient (REF) | payer MEDICARE, SELFPAY ==
--- NOTE | 2022-05-22 15:19 | P.PICC_ITS ---
PICC Line Insertion NPICC Diagnosis: [] Indication: [] Pertinent Labs: [] Technique: Following informed consent including risks, benefits and alternatives and using sterile technique including cap and mask, sterile gown, glove and drape, the [] arm was prepped and draped in the usual sterile fashion of full barrier technique with G. Following completion of [place] Protocol the skin and soft tissues were anesthetized with 1% Lidocaine plain. Using ultrasound guidance, [] vein access was obtained. Over an 0.018 wire through peel-away sheath, a [] PICC line was positioned. Catheter length is [] internal length, [] external length, for a total trimmed length of []. The procedure was performed in []. Tip verification was performed by Ksenia Pool with Carolynn 3CG. Tip located in SVC. Ultrasound was used to document vein patency and for needle entry. A formal ultrasound picture and cardiac rhythm strip was recorded. Vascular Diplomatic Interpreter has released the line for use and it is currently dressed with a StatLock, Tegaderm, and CHG disc. Verification has been performed for blood return and line patency. Arm Circumference: [] Equipment: [] Catheter Type: [] Lot #: []
--- NOTE | 2022-05-22 15:22 | HO.REMOVAL_ITS ---
Removal of PICC/Midline Removal of PICC/Midline: Removal of PICC: 1. Date: 05/22/2022 2. Reason removed: No longer needed, IV antibiotics complete 3. Inserted length: 41 cm 4. Removed length: 41 cm intact PICC 5. A dressing was placed over the site upon removal. No edema or bleeding at the site. Approximate 4 cm erythemic dry area seen under the tegaderm distal to the insertion site. A picture was sent via [employer] text to Dr Lim. Dr Lim responded via [place] text to have the patient apply Cortaid or Benadryl topical. The patient was informed and verbalized an understanding. Patient to report any increase in size, redness or any drainage, the patient needs to call Dr. Lim immediately. The patient verbalized an understanding.
== END 2022-05-21 14:00 | disposition home or self-care (01) ==
LOC: HO.MDS 13:59
PROVIDERS: Visit Provider Hospitalist
DX: Z45.2 Encounter for adjustment and management of vascular access device (principal); M86.9 Osteomyelitis, unspecified
CPT/HCPCS: 96365; J1335

== ENCOUNTER 2022-05-22 13:51 | Outpatient (REF) | payer MEDICARE, SELFPAY ==
[2022-05-22 14:59] LABS: MANUAL DIFF FLAG NO
[2022-05-22 15:09] LABS: Basophils Absolute Auto 0.1 X10*3/uL (0.0-0.2); Basophils Percent Auto 1.4 % (0-2); Eosinophils Absolute Auto 0.3 X10*3/uL (0.0-0.4); Eosinophils Percent Auto 3.7 % (0-4); Hematocrit 42.6 % (42.0-52.0); Imm Gran Abs Auto 0.03 X10*3/uL (0.00-0.03); Imm Gran Pct Auto 0.3 % (0.0-0.4); Lymphocytes Absolute Auto 1.6 X10*3/uL (1.2-4.9); Lymphocytes Percent Auto 18.8 % (20-40); Mean Corpuscular HGB Conc 35.2 g/dl (31.0-36.0); Mean Corpuscular Hemoglobin 32.8 pg (27.0-33.0); Mean Platelet Volume 9.7 fL (9.4-12.4); Monocytes Absolute Auto 0.8 X10*3/uL (0.1-1.2); Monocytes Percent Auto 8.9 % (2-11); Neutrophils Absolute Auto 5.8 x10*3/uL (2.0-8.3); Neutrophils Percent Auto 66.9 % (45-73); Platelet Count 262 X10*3/uL (160-400); Red Blood Count 4.58 X10*6/uL (4.60-5.80); Red Cell Distribution Width 13.5 % (11.0-16.0); White Blood Count 8.7 X10*3/uL (4.8-10.8)
[2022-05-22 15:16] LABS: Anion Gap 16 (12-20); Blood Urea Nitrogen 14 mg/dL (9-16); Calcium 9.3 mg/dL (8.4-10.2); Carbon Dioxide 22 mmol/L (22-29); Chloride 103 mmol/L (96-108); Estimated Glomerular Filt Rate > 60; Glucose Random 109 mg/dL (60-115); Potassium 4.2 mmol/L (3.3-5.1); Sodium 137 mmol/L (135-145)
== END 2022-05-22 13:52 | disposition home or self-care (01) ==
LOC: HO.MDS 13:51
PROVIDERS: Visit Provider Hospitalist
DX: Z45.2 Encounter for adjustment and management of vascular access device (principal); M86.9 Osteomyelitis, unspecified
CPT/HCPCS: 36415; 80048; 85025; 96365; J1335

== ENCOUNTER → 2022-06-02 13:27 | Outpatient (BNVA) | payer MEDICARE, SELFPAY | PROVIDERS: PCP Nurse Practitioner Family; Visit Provider Internal Medicine | DX: M86.172 Other acute osteomyelitis, left ankle and foot (principal); L03.039 Cellulitis of unspecified toe | CPT/HCPCS: 99212 ==

== ENCOUNTER → 2022-06-04 13:13 | Outpatient (BNVA) | payer MEDICARE, SELFPAY | PROVIDERS: PCP Nurse Practitioner Family; Visit Provider Surgery | DX: M86.172 Other acute osteomyelitis, left ankle and foot (principal) | CPT/HCPCS: 99202 ==

== ENCOUNTER → 2022-06-15 09:59 | Outpatient (BNVA) | payer MEDICARE, SELFPAY | PROVIDERS: PCP Nurse Practitioner Family; Visit Provider Internal Medicine | DX: L08.9 Local infection of the skin and subcutaneous tissue, unspecified (principal) | CPT/HCPCS: 99212 ==

== ENCOUNTER 2022-06-16 07:47 | Outpatient (REF) | payer MEDICARE, SELFPAY ==
[2022-06-16 07:56] VITALS: BMI 37.3
[2022-06-16 07:57] VITALS: BP 133/74; PULSE 94; RESP 16; TEMP 36.7; O2SAT 96
[2022-06-16 08:31] VITALS: BP 131/55; PULSE 81; RESP 16; O2SAT 98
--- NOTE | 2022-06-16 08:35 | P.OP_ITS ---
Operative Note Operative Note Date of Service: 06/16/22 Narrative: Preoperative diagnosis: Osteomyelitis left great toe, nonhealing ulcer Postoperative diagnosis: Same Procedure: Debridement of soft tissue and bone left great toe Surgeon: Fausto Hadley MD [employer] Foreman: None Anesthesia: Local Indications for procedure: 67-year-old male patient presenting following injury to the left great toe after a log landed on his foot. He developed a nonhealing wound on the plantar surface measuring approximately 1 cm in diameter. On examination there is exposed bone at the base of the wound suggestive of an underlying osteomyelitis. He presents today for debridement of this soft tissue and bone with bone culture. Operative findings: Open wound, 1 cm on plantar surface of distal phalanx left great toe with underlying palpable bone. Specimen: Bone for culture Estimated blood loss: 5 mL Complications: None Procedure details: Patient was brought to the minor surgery suite placed in a supine position. The site of surgery was confirmed by the patient on the left great toe. After assuring informed consent the skin was prepped with Betadine and draped in a sterile fashion. Local anesthesia consisting 1% lidocaine plain was infiltrated around the open ulcer. A rongeur was then used to debride the palpable bone at the base of the ulcer. Several portions of the bone sent as culture. A curette was used to debride the surrounding granulation tissue as well. Wounds were then irrigated and packed with quarter-inch iodoform gauze. Sterile dressings were then applied. The patient tolerated the procedure well. He was discharged to home in stable condition.
== END 2022-06-16 07:48 | disposition home or self-care (01) ==
LOC: HO.MS 07:47
PROVIDERS: Visit Provider Surgery
PROC: (CPT 11044; principal; 2022-06-16 08:00)
DX: M86.172 Other acute osteomyelitis, left ankle and foot (principal); L97.526 Non-pressure chronic ulcer of other part of left foot with bone involvement without evidence of necrosis
CPT/HCPCS: 11044; 87070; 87073; 87076; 87077; 87185; 87186; 87205

== ENCOUNTER 2022-06-26 13:01 | Inpatient (IN) | payer MEDICARE, SELFPAY ==
--- NOTE | ~2022-06-26 | XR_ITS ---
EXAMINATION: XR FOOT, LEFT CLINICAL INFORMATION: Worsening osteomyelitis COMPARISON: Previous x-ray and MRI March 2022 TECHNIQUE: AP, lateral, and oblique views of the left foot. FINDINGS: There is new bone destruction of the distal phalanx of the great toe. There is new osteopenia of the proximal phalanx of the great toe. There is a new likely pathologic fracture of the distal aspect of the proximal phalanx of the great toe. There is soft tissue swelling of the great toe and abnormal air in the soft tissues. Findings are consistent with osteomyelitis. No other fracture. No other x-ray evidence of osteomyelitis. Spaces. No soft tissue foreign body. Small calcaneal spurs. XR/XR foot LT 2V IMPRESSION: Increasing bone destruction of the distal phalanx of the great toe and pathologic fracture of the distal aspect of the proximal phalanx of the great toe likely related to osteomyelitis. Increasing soft tissue swelling and abnormal air in the soft tissues of the great toe.
--- NOTE | ~2022-06-26 | US_ITS ---
EXAMINATION: NONINVASIVE ASSESSMENT OF THE ARTERIES OF BOTH LOWER EXTREMITIES WITH PVR EXAM AND BILATERAL LOWER EXTREMITY DUPLEX Juliane Villalobos MD CLINICAL INFORMATION: Nonhealing toe wound TECHNIQUE: Ankle pulse volume recordings, ankle pressure measurements and ankle brachial indices were obtained of the lower extremity arterial system bilaterally in addition to duplex Doppler techniques with wave form analysis and measurement of velocities in the common femoral, profunda femoral, superficial femoral, popliteal and tibial arteries. The study was performed only at rest. COMPARISON: None FINDINGS: a) AT REST: RIGHT LE. The right ankle-brachial index is: 1.13 * >0.97-1.25 = normal - no significant arterial disease * 0.75-0.96 = mild peripheral arterial disease * 0.5-0.74 = moderate peripheral arterial disease * <0.50 = severe peripheral arterial disease 2. Right ankle pressure: normal. 3. Right ankle PVR waveform: abnormal 4. Right direct duplex Doppler findings: Common femoral artery: 160m/s, Multiphasic Profunda femoris artery: 108m/s, Multiphasic Superficial femoral artery (proximal): 123m/s, Multiphasic Superficial femoral artery (mid): 101m/s, Multiphasic Superficial femoral artery (distal): 130m/s, Multiphasic Proximal Popliteal artery: 73cm/s, Multiphasic Mid posterior tibial artery: 118m/s, Multiphasic LEFT LE. The left ankle-brachial index is: 0.98 * >0.97-1.25 = normal - no significant arterial disease * 0.75-0.96 = mild peripheral arterial disease * 0.5-0.74 = moderate peripheral arterial disease * <0.50 = severe peripheral arterial disease 2. Left ankle pressure: normal. 3. Left ankle PVR waveform: abnormal 4. Left direct duplex Doppler findings: Common femoral artery: 151m/s, monophasic Profunda femoris artery: 151m/s, monophasic Superficial femoral artery (proximal): 137m/s, monophasic Superficial femoral artery (mid): 164m/s, monophasic Superficial femoral artery (distal): 217m/s, monophasic Proximal Popliteal artery: 177m/s, monophasic Mid posterior tibial artery: 132m/s, monophasic US/US LISBETH complete IMPRESSION: RIGHT LOWER EXTREMITY: No evidence of hemodynamically significant stenosis. LEFT LEG: Mild-moderate peripheral arterial disease throughout the left lower extremity by direct duplex despite relatively normal LISBETH.
--- NOTE | ~2022-06-26 | MR_ITS ---
EXAMINATION: MR FOOT WITHOUT CONTRAST, LEFT CLINICAL INFORMATION: Worsening osteomyelitis. COMPARISON: Left foot radiographs dated 06/26/2022 and left foot MRI dated 04/09/2022. TECHNIQUE: Multisequence imaging of the left foot was obtained without contrast on a high-field strength scanner. FINDINGS: Soft tissue ulceration at the distal aspect of the 1st toe with skin thickening and subcutaneous edema consistent with cellulitis. No organized fluid collection/abscess formation. Edema extends proximally along the great toe and into the forefoot. Erosion throughout the 1st distal phalanx as well as cortical irregularity at the head of the 1st proximal phalanx. Associated decreased T1 and increased T2 signal with prominent postcontrast enhancement. Findings are consistent with acute osteomyelitis and have significantly progressed when compared to the prior MRI dated 04/09/2022. Edema within the intrinsic musculature of the foot which can be seen in diabetic patients. The visualized flexor and extensor tendons are intact. Intact Lisfranc ligament. MR/MR foot LT wo con IMPRESSION: 1. Soft tissue ulceration and cellulitis at the distal aspect of the 1st toe without an abscess formation. Edema extends proximally along the great toe into the forefoot. 2. Osteomyelitis throughout the 1st distal phalanx as well as the head of the 1st proximal phalanx, significantly progressed when compared to the MRI dated 04/09/2022. 3. Edema within the intrinsic musculature of the foot which can be seen in diabetic patients.
--- NOTE | ~2022-06-26 | US_ITS ---
EXAMINATION: NONINVASIVE ASSESSMENT OF THE ARTERIES OF BOTH LOWER EXTREMITIES WITH PVR EXAM AND BILATERAL LOWER EXTREMITY DUPLEX Juliane Villalobos MD CLINICAL INFORMATION: Nonhealing toe wound TECHNIQUE: Ankle pulse volume recordings, ankle pressure measurements and ankle brachial indices were obtained of the lower extremity arterial system bilaterally in addition to duplex Doppler techniques with wave form analysis and measurement of velocities in the common femoral, profunda femoral, superficial femoral, popliteal and tibial arteries. The study was performed only at rest. COMPARISON: None FINDINGS: a) AT REST: RIGHT LE. The right ankle-brachial index is: 1.13 * >0.97-1.25 = normal - no significant arterial disease * 0.75-0.96 = mild peripheral arterial disease * 0.5-0.74 = moderate peripheral arterial disease * <0.50 = severe peripheral arterial disease 2. Right ankle pressure: normal. 3. Right ankle PVR waveform: abnormal 4. Right direct duplex Doppler findings: Common femoral artery: 160m/s, Multiphasic Profunda femoris artery: 108m/s, Multiphasic Superficial femoral artery (proximal): 123m/s, Multiphasic Superficial femoral artery (mid): 101m/s, Multiphasic Superficial femoral artery (distal): 130m/s, Multiphasic Proximal Popliteal artery: 73cm/s, Multiphasic Mid posterior tibial artery: 118m/s, Multiphasic LEFT LE. The left ankle-brachial index is: 0.98 * >0.97-1.25 = normal - no significant arterial disease * 0.75-0.96 = mild peripheral arterial disease * 0.5-0.74 = moderate peripheral arterial disease * <0.50 = severe peripheral arterial disease 2. Left ankle pressure: normal. 3. Left ankle PVR waveform: abnormal 4. Left direct duplex Doppler findings: Common femoral artery: 151m/s, monophasic Profunda femoris artery: 151m/s, monophasic Superficial femoral artery (proximal): 137m/s, monophasic Superficial femoral artery (mid): 164m/s, monophasic Superficial femoral artery (distal): 217m/s, monophasic Proximal Popliteal artery: 177m/s, monophasic Mid posterior tibial artery: 132m/s, monophasic US/US arterial duplex LE BI IMPRESSION: RIGHT LOWER EXTREMITY: No evidence of hemodynamically significant stenosis. LEFT LEG: Mild-moderate peripheral arterial disease throughout the left lower extremity by direct duplex despite relatively normal LISBETH.
[2022-06-26 13:05] VITALS: BP 118/52; PULSE 99; RESP 18; TEMP 36; O2SAT 99; BMI 36.6
[2022-06-26 13:17] LABS: MANUAL DIFF FLAG NO
[2022-06-26 13:19] LABS: Basophils Absolute Auto 0.1 X10*3/uL (0.0-0.2); Basophils Percent Auto 0.8 % (0-2); Eosinophils Absolute Auto 0.3 X10*3/uL (0.0-0.4); Eosinophils Percent Auto 2.6 % (0-4); Hematocrit 40.3 % (42.0-52.0); Hemoglobin 13.7 g/dl (14.0-18.0); Imm Gran Abs Auto 0.07 X10*3/uL (0.00-0.03); Imm Gran Pct Auto 0.6 % (0.0-0.4); Lymphocytes Absolute Auto 1.6 X10*3/uL (1.2-4.9); Lymphocytes Percent Auto 13.8 % (20-40); Mean Corpuscular Hemoglobin 32.3 pg (27.0-33.0); Mean Platelet Volume 9.1 fL (9.4-12.4); Monocytes Absolute Auto 0.9 X10*3/uL (0.1-1.2); Monocytes Percent Auto 7.3 % (2-11); Neutrophils Absolute Auto 8.9 x10*3/uL (2.0-8.3); Neutrophils Percent Auto 74.9 % (45-73); Platelet Count 460 X10*3/uL (160-400); Red Blood Count 4.24 X10*6/uL (4.60-5.80); Red Cell Distribution Width 13.1 % (11.0-16.0); White Blood Count 11.9 X10*3/uL (4.8-10.8)
[2022-06-26 13:38] LABS: Alanine Aminotransferase 20 U/L (0-40); Albumin Level 3.7 g/dL (3.5-5.0); Alkaline Phosphatase 104 U/L (39-117); Anion Gap 17 (12-20); Aspartate Amino Transferase 16 U/L (5-37); Bilirubin Total 0.7 mg/dL (0.0-1.0); Blood Urea Nitrogen 27 mg/dL (9-16); Calcium 9.8 mg/dL (8.4-10.2); Carbon Dioxide 24 mmol/L (22-29); Chloride 100 mmol/L (96-108); Creatinine Clr Calc Pharmacy 62.9; Estimated Glomerular Filt Rate 50; Glucose Random 165 mg/dL (60-115); Potassium 4.9 mmol/L (3.3-5.1); Sodium 136 mmol/L (135-145); Total Protein 8.2 g/dL (6.5-8.0)
--- NOTE | 2022-06-26 15:06 | ED_ITS ---
HPI - General Adult General Chief complaint: Extremity Injury, Lower <RUPERTO Rankin - Last Filed: 06/26/22 21:26> Stated complaint: L foot pain <RUPERTO Rankin - Last Filed: 06/26/22:26> Time Seen by Provider: 06/26/22 17:10 <RUPERTO Rankin - Last Filed: 06/26/22 21:26> Source: patient <RUPERTO Rankin Last Filed: 06/26/22 21:26> Mode of arrival: ambulatory <RUPERTO Rankin - Last Filed: 06/26/22:26> Limitations: no limitations <RUPERTO Rankin Last Filed: 06/26/22:26> History of Present Illness HPI narrative: Patient is a 67 year old assigned male at with a history of HTN and left great toe osteomyelitis presenting to the emergency department today with a worsening left great toe wound. Patient states that he has had this wound since March when a large tree trunk fell on his left great toe. Patient states that he has been following up with wound care and infectious disease but they recommended he come to the ER today because it seems to be worsening. Patient denies any dizziness, lightheadedness, abdominal pain, nausea, vomiting, fever, chills, blurry vision, double vision, loss of vision, chest pain, difficulty breathing, shortness of breath, back pain, night sweats, pain with urination, increased urinary frequency, increased urinary urgency, blood in his urine or stool, syncope or a near syncopal episode, recent trauma or falls, bowel incontinence, bladder incontinence, bowel retention, bladder retention, or any other complaints at this time. <RUPERTO Rankin - Last Filed: 06/26/22 21:26> Patient is a 67 year old assigned male at with a history of HTN and left great toe osteomyelitis presenting to the emergency department today with a worsening left great toe wound. Patient states that he has had this wound since March when a large tree trunk fell on his left great toe. Patient states that he has been following up with wound care and infectious disease but they recomm ended he come to the ER today because it seems to be worsening. Patient denies any dizziness, lightheadedness, abdominal pain, nausea, vomiting, fever, chills, blurry vision, double vision, loss of vision, chest pain, difficulty breathing, shortness of breath, back pain, night sweats, pain with urination, increased urinary frequency, increased urinary urgency, blood in his urine or stool, syncope or a near syncopal episode, recent trauma or falls, bowel incontinence, bladder incontinence, bowel retention, bladder retention, or any other complaints at this time. Dr. Black's Note: 67-year-old male, diabetic who states he has recently undergone IV antibiotics for ?this infected foot? and has been going to wound care center but states that it has progressively worsened with increased swelling and pain and states that he underwent a biopsy by Dr. Hadley and then was instructed to come into the emergency room. He otherwise denies any fever, chills. <Suze Black MD - Last Filed: 06/26/22 20:28> Onset (ago): week(s) <RUPERTO Rankin - Last Filed: 06/26/22 21:26> Location: left and lower extremity <RUPERTO Rankin - Last Filed: 06/26/22 21:26> Severity: moderate <RUPERTO Rankin - Last Filed: 06/26/22 21:26> Severity scale (1-10): 5 <RUPERTO Rankin - Last Filed: 06/26/22 21:26> Quality: aching and dull <RUPERTO Rankin - Last Filed: 06/26/22 21:26> Pain Consistency: constant <RUPERTO Rankin - Last Filed: 06/26/22 21:26> Relieving factors: none <RUPERTO Rankin - Last Filed: 06/26/22 21:26> Exacerbating factors: none <RUPERTO Rankin - Last Filed: 06/26/22 21:26> Associated symptoms: denies other symptoms <RUPERTO Rankin - Last Filed: 06/26/22 21:26> Treatments prior to arrival: other (PO antibiotics) <RUPERTO Rankin - Last Filed: 06/26/22 21:26> Related Data Home medications: Home Medications Medication Instructions Recorded Confirmed ibuprofen 200 mg tablet 200 mg PO Q6H PRN Fever 06/26/22 06/26/22 Previous Rx's Medication Instructions Recorded doxycycline hyclate 100 mg tablet 100 mg PO BID 30 days #60 tabs 06/02/22 allopurinol 100 mg tablet 100 mg PO DAILY 90 days #90 tabs 06/24/22 hydrochlorothiazide 12.5 mg tablet 12.5 mg PO DAILY 30 days #30 tabs 06/24/22 lisinopril 40 mg tablet 40 mg PO DAILY #90 tabs 06/24/22 <RUPERTO Rankin - Last Filed: 06/26/22 21:26> Allergies/adverse reactions: Allergies Allergy/AdvReac Type Severity Reaction Status Date / Time No Known Allergies Allergy Verified 06/15/22 10:31 [No Known Allergies*] <RUPERTO Rankin - Last Filed: 06/26/22 21:26> Review of Systems Review of Systems: Positives and negatives as stated in HPI and my note and 10 point review of systems is otherwise negative. <Suze Black MD - Last Filed: 06/26/22 20:28> Constitutional: Constitutional: Reports no additional constitutional complaints, Denies chills, Denies fever(s) and Denies night sweats <RUPERTO Rankin Last Filed: 06/26/22 21:26> Eyes: Eyes: Reports no additional eye complaints, Denies blurry vision, Denies change in vision, Denies diplopia, Denies eye discharge, Denies loss of vision and Denies eye pain <RUPERTO Rankin Last Filed: 06/26/22 21:26> ENT: Denies dizziness <RUPERTO Rankin Last Filed: 06/26/22 21:26> Cardiovascular: Cardiovascular: Reports no additional cardiovascular complaints, Denies chest pain, Denies lightheadedness, Denies Loss of Consciousness and Denies dyspnea <RUPERTO Rankin - Last Filed: 2 21:26> Respiratory: Respiratory: Reports no additional respiratory complaints and Denies dyspnea <RUPERTO Rankin Last Filed: 06/26/22 21:26> Gastrointestinal: Gastrointestinal: Reports no additional gastrointestinal complaints, Denies abdominal pain, Denies melena, Denies hematochezia, Denies change in bowel habits and Denies change in stool character <RUPERTO Rankin Last Filed: 06/26/22 21:26> Genitourinary: Genitourinary: Reports no additional male genitourinary complaints, Denies hematuria, Denies oliguria, Denies difficulty urinating, Denies dysuria, Denies urinary frequency, Denies urinary hesitancy, Denies urinary incontinence and Denies urinary urgency <RUPERTO Rankin - Last Filed: 06/26/22 21:26> Musculoskeletal: Musculoskeletal: Reports no additional musculoskeletal complaints, Denies numbness and Denies tingling <RUPERTO Rankin - Last Filed: 06/26/22 21:26> Comments: left great toe wound <RUPERTO Rankin - Last Filed: 06/26/22 21:26> Neurologic: Denies dizziness, Denies loss of vision, Denies numbness and Denies tingling <RUPERTO Rankin - Last Filed: 06/26/22 21:26> Psychiatric: Psychiatric: Reports no additional psychiatric complaints <RUPERTO Rankin - Last Filed: 06/26/22 21:26> Endocrine: Endocrine: Reports no additional endocrine complaints <RUPERTO Rankin - Last Filed: 06/26/22 21:26> Hematologic/Lymphatic: Hematologic/Lymphatic: Reports no additional hematologic/lymphatic complaints <RUPERTO Rankin - Last Filed: 06/26/22 21:26> Allergic/Immunologic: Allergic/Immunologic: Reports no additional allergic/immunologic complaints <RUPERTO Rankin - Last Filed: 06/26/22 21:26> PMFSH Past Medical History Attestation statement: The following information was validated with the patient. <RUPERTO Manzo - Last Filed: 06/26/22 21:26> Source: old records reviewed and nursing notes reviewed <RUPERTO Rankin - Last Filed: 06/26/22 21:26> nursing notes reviewed <Suze Black MD - Last Filed: 06/26/22 20:28> Medical History: Medical History Elevated TSH Gout HTN (hypertension) Obesity Paronychia of great toe Screening PSA (prostate specific antigen) Varicose veins of both lower extremities <RUPERTO Rankin - Last Filed: 06/26/22 21:26> Surgical History: Surgical History Hx of colonoscopy Hx of vascular surgery <RUPERTO Rankin - Last Filed: 06/26/22 21:26> Family History Family History: Family History Father HTN (hypertension) Mother Parkinsons disease <RUPERTO Rankin - Last Filed: 06/26/22 21:26> Social History Social History: Social History Household Members: Spouse Housing: House Are you a primary career counselor to a significant other at home: No Do you presently have visiting nurse or other home services: No Alcohol intake: current Alcohol intake frequency: a few times a week Patient Tobacco Use Status: Never used Tobacco Advance Directives: Yes Advance Directives on File: Yes Advance Directives Date on File: 04/09/22 service: No Current occupational status: employed and retired <RUPERTO Rankin - Last Filed: 06/26/22 21:26> Physical Exam ED Vital Signs: Vital Signs - 24 hr 06/26/22 13:05 06/26/22 17:36 06/26/22 18:00 Temperature 96.8 F 98.6 F 98.4 F Pulse Rate 99 66 67 Respiratory Rate 18 16 16 Blood Pressure 118/52 L 119/56 L 109/51 L Pulse Oximetry 99 98 98 Oxygen Delivery Method Room Air Room Air Room Air 06/26/22 20:00 Temperature 98.4 F Pulse Rate 64 Respiratory Rate 16 Blood Pressure 115/65 Pulse Oximetry 98 Oxygen Delivery Method Room Air BMI result Body Mass Index 36.6 <RUPERTO Rankin - Last Filed: 06/26/22 21:26> Vital Signs - 24 hr 06/26/22 13:05 06/26/22 17:36 06/26/22 18:00 Temperature 96.8 F 98.6 F 98.4 F Pulse Rate 99 66 67 Respiratory Rate 18 16 16 Blood Pressure 118/52 L 119/56 L 109/51 L Pulse Oximetry 99 98 98 Oxygen Delivery Method Room Air Room Air Room Air 06/26/22 20:00 Temperature 98.4 F Pulse Rate 64 Respiratory Rate 16 Blood Pressure 115/65 Pulse Oximetry 98 Oxygen Delivery Method Room Air BMI result Body Mass Index 36.6 VITAL SIGNS: Reviewed. GENERAL: Well developed, well nourished, in no acute distress. HEAD: Normocephalic/atraumatic EYES: PERRLA, EOMI EARS: Ext canals without abnormality OROPHARYNX: no oral lesions noted, posterior pharynx clear LUNGS: Normal breath sounds. No adventitious sounds or accessory muscle use. SpO2<98> CARDIOVASCULAR: Regular rate and rhythm without noted murmurs, no JVD or lower extremity edema. ABDOMEN: Soft, non-tender, non-distended with bowel sounds. MUSCULOSKELETAL: No tenderness, deformities, or effusions noted on gross inspection. EXTREMITIES: No cyanosis, clubbing or edema; LEFT FOOT: Noted swelling within the left foot, warm, palpable DP/PT but right great toe has findings concerning for wet gangrene with bogginess, obvious nonhealing opening at the plantar aspect of the large toe, foul odor SKIN: Inspection of the skin reveals no rashes NEUROLOGIC: Alert and oriented x 4. Strength and sensation to light touch were grossly intact x 4. <Suze Black MD - Last Filed: 06/26/22 20:28> Const General: cooperative, no acute distress, alert and awake <RUPERTO Rankin - Last Filed: 06/26/22 21:26> Nutritional Appearance: well nourished <RUPERTO Rankin - Last Filed: 06/26/22 21:26> Orientation/consciousness: patient oriented x3 <RUPERTO Rankin - Last Filed: 06/26/22 21:26> Limitations: no limitations <RUPERTO Rankin - Last Filed: 06/26/22 21:26> [facility] Head: Yes normal to inspection and Yes atraumatic <RUPERTO Rankin Last Filed: 06/26/22 21:26> Ears: hearing grossly normal bilaterally and external ears normal <RUPERTO Rankin Last Filed: 06/26/22 21:26> General nose exam: Normal external nose present, no nasal discharge noted and no epistaxis <RUPERTO Rankin Last Filed: 06/26/22 21:26> Face and sinus: Yes normal facial exam, No abrasion and No laceration <RUPERTO Rankin Last Filed: 06/26/22 21:26> Mouth: Normal oral and palatal mucosa present, no drooling and no muffled voice <Oriana Zamorakellie PA - Last Filed: 06/26/22 21:26> Eyes General: appearance normal, both eyes and all related structures <Oriana ZamoraRPUERTO hopkins - Last Filed: 06/26/22 21:26> Periorbital: periorbital findings normal <Orianamello Zamorakellie PA - Last Filed: 06/26/22 21:26> Eyelids: Yes eyelids normal <Oriana Zamorakellie PA - Last Filed: 06/26/22 21:26> Conjunctivae: conjunctivae normal <Oriana Zamorakellie PA - Last Filed: 06/26/22 21:26> Pupils: Equal, round and reactive pupils present <Oriana Zamorakellie PA - Last Filed: 06/26/22 21:26> EOM: EOMs intact bilaterally <Orianamello ZamoraRUPERTO hopkins - Last Filed: 06/26/22 21:26> Neck Neck: Yes normal visual inspection, Yes full ROM and Yes no lymphadenopathy <Oriana Zamorakellie PA - Last Filed: 06/26/22 21:26> Chest Chest palpation & inspection: normal inspection of the chest <Oriana RUPERTO Sánchez - Last Filed: 06/26/22 21:26> Resp Effort & Inspection: normal respiratory effort and able to speak in complete sentences <Orianamello ZamoraRUPERTO hopkins - Last Filed: 06/26/22 21:26> Auscultation: clear to auscultation bilaterally <Oriana RUPERTO Sánchez - Last Filed: 06/26/22 21:26> Cardio Rate: regular rate <Oriana Zamorakellie PA - Last Filed: 06/26/22 21:26> Rhythm: regular rhythm <Oriana RUPERTO Sánchez - Last Filed: 06/26/22 21:26> GI Inspection: Yes normal to inspection <Oriana RUPERTO Sánchez - Last Filed: 06/26/22 21:26> Neuro General: patient oriented x3 and moves all extremities <RUPERTO Rankin - Last Filed: 06/26/22 21:26> Cranial nerves: Yes Equal, round and reactive pupils present <Oriana Sánchez, PA - Last Filed: 06/26/22 21:26> Cognition (Neuro): normal cognition <RUPERTO Rankin Last Filed: 06/26/22 21:26> Motor exam (neuro): 5/5 motor strength present throughout <RUPERTO Rankin Last Filed: 06/26/22 21:26> Sensory Exam: Normal double simultaneous stimulation for sensation <RUPERTO Rankin Last Filed: 06/26/22 21:26> Coordination: [id number] test normal <RUPERTO Rankin Last Filed: 06/26/22 21:26> Extrem Other: large left great toe wound that tunnels deeply into the plantar aspect of the left foot just inferior to the base of the left great toe. Venous stasis dermatitis to the left lower leg extending superior from the ankle. <RUPERTO Rankin Last Filed: 06/26/22 21:26> General: Yes full ROM and Yes capillary refill normal <RUPERTO Rankin Last Filed: 06/26/22 21:26> Psych Appearance: grossly normal <RUPERTO Rankin Last Filed: 06/26/22 21:26> Mental Status: mental status grossly normal <RUPERTO Rankin Last Filed: 06/26/22 21:26> Affect: normal affect <RUPERTO Rankin Last Filed: 06/26/22 21:26> Attitude: cooperative <RUPERTO Rankin Last Filed: 06/26/22 21:26> Thought process: Normal thought process present <RUPERTO Rankin Last Filed: 07/07 21:26> Thought content: Normal thought content present <RUPERTO Rankin Last Filed: 06/26/22 21:26> Insight: Good insight present (Psych) <RUPERTO Rankin Last Filed: 06/26/22 21:26> Course Course Course Narrative: Rapid medical examination performed at 1506 by Oriana Sánchez PA-C. Patient is a 67 year old male with a left great toe wound since March of this year for which he is following with our infectious disease and wound providers. Patient states that he is currently on PO antibiotics but it seems to be spreading so his ID doctor had him come to the Emergency Department. CBC, CMP, lactic acid, blood cultures, ibuprofen, ESR, CRP and left foot XR all ordered. Patient placed back in the waiting room pending further evaluation and results of said ordered tests. <RUPERTO Rankin - Last Filed: 06/26/22 21:26> Rapid medical examination performed at 1506 by Oriana Sánchez PA-C. Patient is a 67 year old male with a left great toe wound since March of this year for which he is following with our infectious disease and wound providers. Patient states that he is currently on PO antibiotics but it seems to be spreading so his ID doctor had him come to the Emergency Department. CBC, CMP, lactic acid, blood cultures, ibuprofen, ESR, CRP and left foot XR all ordered. Patient placed back in the waiting room pending further evaluation and results of said ordered tests. 1930: I suspect infection not being covered by oral antibiotics, Zosyn/vancomycin were ordered. 67-year-old male with suspected wet gangrene of the left great toe and underlying OM further demonstrated by radiographic findings. I discussed the case with inpatient hospitalist who accepts admission. <Suze Black MD - Last Filed: 06/26/22 20:28> Medications Administered Discontinued Medications Generic Name Dose Route Start Last Admin Trade Name Freq PRN Reason Stop Dose Admin Ibuprofen 600 mg 06/26/22 15:05 06/26/22 15:09 Ibuprofen 600 Mg Tablet PO 06/26/22 15:06 600 mg ONCE ONE Administration <RUPERTO Rankin - Last Filed: 06/26/22 21:26> Medications Administered Discontinued Medications Generic Name Dose Route Start Last Admin Trade Name Freq PRN Reason Stop Dose Admin Ibuprofen 600 mg 06/26/22 15:05 06/26/22 15:09 Ibuprofen 600 Mg Tablet PO 06/26/22 15:06 600 mg ONCE ONE Administration <uSze Black MD - Last Filed: 06/26/22 20:28> Medical Decision Making Lab Data Result diagrams: : 06/26/22 13:13 06/26/22 13:13 <RUPERTO Rankin - Last Filed: 06/26/22 21:26> Labs: Lab Results 06/26/22 06/26/22 06/26/22 Range/Units 13:13 13:13 13:13 WBC 11.9 H (4.8-10.8) X10*3/uL RBC 4.24 L (4.60-5.80) X10*6/uL Hgb 13.7 L (14.0-18.0) g/dl Hct 40.3 L (42.0-52.0) % MCV 95.0 (80.0-98.0) fL MCH 32.3 (27.0-33.0) pg MCHC 34.0 (31.0-36.0) g/dl RDW 13.1 (11.0-16.0) % Plt Count 460 H D (160-400) X10*3/uL MPV 9.1 L (9.4-12.4) fL Immature Gran % (Auto) 0.6 H (0.0-0.4) % Neut % (Auto) 74.9 H (45-73) % Lymph % (Auto) 13.8 L (20-40) % [place] % (Auto) 7.3 (2-11) % Eos % (Auto) 2.6 (0-4) % Baso % (Auto) 0.8 (0-2) % Lymph # (Auto) 1.6 (1.2-4.9) X10*3/uL [place] # (Auto) 0.9 (0.1-1.2) X10*3/uL Eos # (Auto) 0.3 (0.0-0.4) X10*3/uL Baso # (Auto) 0.1 (0.0-0.2) X10*3/uL Abs Immat Gran (auto) 0.07 H (0.00-0.03) X10*3/uL Absolute Neuts (auto) 8.9 H (2.0-8.3) x10*3/uL Absolute Nucleated RBC 0.000 (0.0-0.012) X10*3/uL Nucleated RBC % (auto) 0.0 (0.0-0.2) /100WBC ESR 82 H (0-15) MM/HR Sodium 136 (135-145) mmol/L Potassium 4.9 (3.3-5.1) mmol/L Chloride 100 (96-108) mmol/L Carbon Dioxide 24 (22-29) mmol/L Anion Gap 17 (12-20) BUN 27 H D (9-16) mg/dL Creatinine 1.41 H (0.5-1.4) mg/dL Estim Creat Clear Calc 62.9 Estimated GFR 50 Random Glucose 165 H D (60-115) mg/dL Lactic Acid (0.5-2.0) mmol/L Calcium 9.8 (8.4-10.2) mg/dL Total Bilirubin 0.7 (0.0-1.0) mg/dL AST 16 D (5-37) U/L ALT 20 (0-40) U/L Alkaline Phosphatase 104 (39-117) U/L C-Reactive Protein 7.56 H (< or = 0.50) mg/dL Total Protein 8.2 H (6.5-8.0) g/dL Albumin 3.7 (3.5-5.0) g/dL COVID-19 ([facility]) (Negative) COVID-19 Clin Com 06/26/22 06/26/22 Range/Units 15:25 20:07 WBC (4.8-10.8) X10*3/uL RBC (4.60-5.80) X10*6/uL Hgb (14.0-18.0) g/dl Hct (42.0-52.0) % MCV (80.0-98.0) fL MCH (27.0-33.0) pg MCHC (31.0-36.0) g/dl RDW (11.0-16.0) % Plt Count (160-400) X10*3/uL MPV (9.4-12.4) fL Immature Gran % (Auto) (0.0-0.4) % Neut % (Auto) (45-73) % Lymph % (Auto) (20-40) % [place] % (Auto) (2-11) % Eos % (Auto) (0-4) % Baso % (Auto) (0-2) % Lymph # (Auto) (1.2-4.9) X10*3/uL [place] # (Auto) (0.1-1.2) X10*3/uL Eos # (Auto) (0.0-0.4) X10*3/uL Baso # (Auto) (0.0-0.2) X10*3/uL Abs Immat Gran (auto) (0.00-0.03) X10*3/uL Absolute Neuts (auto) (2.0-8.3) x10*3/uL Absolute Nucleated RBC (0.0-0.012) X10*3/uL Nucleated RBC % (auto) (0.0-0.2) /100WBC ESR (0-15) MM/HR Sodium (135-145) mmol/L Potassium (3.3-5.1) mmol/L Chloride (96-108) mmol/L Carbon Dioxide (22-29) mmol/L Anion Gap (12-20) BUN (9-16) mg/dL Creatinine (0.5-1.4) mg/dL Estim Creat Clear Calc Estimated GFR Random Glucose (60-115) mg/dL Lactic Acid 1.1 (0.5-2.0) mmol/L Calcium (8.4-10.2) mg/dL Total Bilirubin (0.0-1.0) mg/dL AST (5-37) U/L ALT (0-40) U/L Alkaline Phosphatase (39-117) U/L C-Reactive Protein (< or = 0.50) mg/dL Total Protein (6.5-8.0) g/dL Albumin (3.5-5.0) g/dL COVID-19 ([facility]) Negative (Negative) COVID-19 Clin Com See Note <RUPERTO Rankin - Last Filed: 06/26/22 21:26> Lab Results 06/26/22 06/26/22 06/26/22 Range/Units 13:13 13:13 13:13 WBC 11.9 H (4.8-10.8) X10*3/uL RBC 4.24 L (4.60-5.80) X10*6/uL Hgb 13.7 L (14.0-18.0) g/dl Hct 40.3 L (42.0-52.0) % MCV 95.0 (80.0-98.0) fL MCH 32.3 (27.0-33.0) pg MCHC 34.0 (31.0-36.0) g/dl RDW 13.1 (11.0-16.0) % Plt Count 460 H D (160-400) X10*3/uL MPV 9.1 L (9.4-12.4) fL Immature Gran % (Auto) 0.6 H (0.0-0.4) % Neut % (Auto) 74.9 H (45-73) % Lymph % (Auto) 13.8 L (20-40) % [place] % (Auto) 7.3 (2-11) % Eos % (Auto) 2.6 (0-4) % Baso % (Auto) 0.8 (0-2) % Lymph # (Auto) 1.6 (1.2-4.9) X10*3/uL [place] # (Auto) 0.9 (0.1-1.2) X10*3/uL Eos # (Auto) 0.3 (0.0-0.4) X10*3/uL Baso # (Auto) 0.1 (0.0-0.2) X10*3/uL Abs Immat Gran (auto) 0.07 H (0.00-0.03) X10*3/uL Absolute Neuts (auto) 8.9 H (2.0-8.3) x10*3/uL Absolute Nucleated RBC 0.000 (0.0-0.012) X10*3/uL Nucleated RBC % (auto) 0.0 (0.0-0.2) /100WBC ESR 82 H (0-15) MM/HR Sodium 136 (135-145) mmol/L Potassium 4.9 (3.3-5.1) mmol/L Chloride 100 (96-108) mmol/L Carbon Dioxide 24 (22-29) mmol/L Anion Gap 17 (12-20) BUN 27 H D (9-16) mg/dL Creatinine 1.41 H (0.5-1.4) mg/dL Estim Creat Clear Calc 62.9 Estimated GFR 50 Random Glucose 165 H D (60-115) mg/dL Lactic Acid (0.5-2.0) mmol/L Calcium 9.8 (8.4-10.2) mg/dL Total Bilirubin 0.7 (0.0-1.0) mg/dL AST 16 D (5-37) U/L ALT 20 (0-40) U/L Alkaline Phosphatase 104 (39-117) U/L C-Reactive Protein 7.56 H (< or = 0.50) mg/dL Total Protein 8.2 H (6.5-8.0) g/dL Albumin 3.7 (3.5-5.0) g/dL COVID-19 ([facility]) (Negative) COVID-19 Clin Com 06/26/22 06/26/22 Range/Units 15:25 20:07 WBC (4.8-10.8) X10*3/uL RBC (4.60-5.80) X10*6/uL Hgb (14.0-18.0) g/dl Hct (42.0-52.0) % MCV (80.0-98.0) fL MCH (27.0-33.0) pg MCHC (31.0-36.0) g/dl RDW (11.0-16.0) % Plt Count (160-400) X10*3/uL MPV (9.4-12.4) fL Immature Gran % (Auto) (0.0-0.4) % Neut % (Auto) (45-73) % Lymph % (Auto) (20-40) % [place] % (Auto) (2-11) % Eos % (Auto) (0-4) % Baso % (Auto) (0-2) % Lymph # (Auto) (1.2-4.9) X10*3/uL [place] # (Auto) (0.1-1.2) X10*3/uL Eos # (Auto) (0.0-0.4) X10*3/uL Baso # (Auto) (0.0-0.2) X10*3/uL Abs Immat Gran (auto) (0.00-0.03) X10*3/uL Absolute Neuts (auto) (2.0-8.3) x10*3/uL Absolute Nucleated RBC (0.0-0.012) X10*3/uL Nucleated RBC % (auto) (0.0-0.2) /100WBC ESR (0-15) MM/HR Sodium (135-145) mmol/L Potassium (3.3-5.1) mmol/L Chloride (96-108) mmol/L Carbon Dioxide (22-29) mmol/L Anion Gap (12-20) BUN (9-16) mg/dL Creatinine (0.5-1.4) mg/dL Estim Creat Clear Calc Estimated GFR Random Glucose (60-115) mg/dL Lactic Acid 1.1 (0.5-2.0) mmol/L Calcium (8.4-10.2) mg/dL Total Bilirubin (0.0-1.0) mg/dL AST (5-37) U/L ALT (0-40) U/L Alkaline Phosphatase (39-117) U/L C-Reactive Protein (< or = 0.50) mg/dL Total Protein (6.5-8.0) g/dL Albumin (3.5-5.0) g/dL COVID-19 ([facility]) Negative (Negative) COVID-19 Clin Com See Note <Suze Black MD - Last Filed: 06/26/22 20:28> Critical Care Time Critical Care Time Critical Care Time: Yes <Suze Black MD - Last Filed: 06/26/22 20:28> Total Critical Care Time: 30 <Suze Black MD - Last Filed: 06/26/22 20:28> Attestation: I personally attest to this time spent taking care of the patient. <Suze Black MD - Last Filed: 06/26/22 20:28> Discharge Plan Discharge Clinical Impression: Sepsis, Diabetic wet gangrene of the foot, KHADIJAH (acute kidney injury) <RUPERTO Rankin - Last Filed: 06/26/22 21:26> Patient Disposition: Admitted As Inpatient <RUPERTO Rankin - Last Filed: 06/26/22 21:26>
[2022-06-26] MEDS: Ibuprofen 600 MG TABLET PO (15:09)
[2022-06-26 15:29] LABS: C Reactive Protein 7.56 mg/dL (< or = 0.50)
[2022-06-26 15:49] LABS: Lactic Acid 1.1 mmol/L (0.5-2.0)
[2022-06-26 15:56] LABS: Erythrocyte Sedimentation Rate 82 MM/HR (0-15)
[2022-06-26 17:36] VITALS: BP 119/56; PULSE 66; RESP 16; TEMP 37; O2SAT 98
[2022-06-26 18:00] VITALS: BP 109/51; PULSE 67; RESP 16; TEMP 36.9; O2SAT 98
--- NOTE | 2022-06-26 19:16 | PC.NURSE ---
left foot big toe has a dressing with staining present. pt states he has no pain unless he puts a shoe on. pt left leg is red warm to the touch and swelling noted.
[2022-06-26 20:00] VITALS: BP 115/65; PULSE 64; RESP 16; TEMP 36.9; O2SAT 98
[2022-06-26 20:25] LABS: COVID-19 Test Negative (Negative)
--- NOTE | 2022-06-26 21:24 | PHA.MEDREC ---
Pharmacy Consult ? Medication Reconciliation Pharmacy has completed the medication reconciliation. PATIENT TOOK ALL MEDS TODAY. TOOK BOTH DOSES OF DOXY
[2022-06-26] MEDS: 0.9 % Sodium Chloride 1,000 ML 999 ML IV (22:08)
[2022-06-26] MEDS: Piperacillin Sodium/Tazobactam 4.5 GM in 0.9 % Sodium Chloride 100 ML IV (22:15)
--- NOTE | 2022-06-26 22:16 | P.HPHOSP_ITS ---
History of Present Illness Date of Service: 06/26/22 Chief Complaint: Left foot wound This is a 67-year-old male with pertinent history of essential hypertension, mixed hyperlipidemia, gout who presents to the emergency department for evaluation of left big toe nonhealing wound. Patient was admitted to [facility] on 04/08 and discharged on 04/10 with left great toe osteomyelitis. Patient was discharged with 6 weeks of IV antibiotics which he finished in early May. Patient states since finishing the antibiotic course, left great toe wound has been worsening with increasing swelling and pain. Also has been having purulent discharge. Patient has been following up with wound care who asked the patient to come to the ER due to worsening of the wound. Patient denies fever, chills, nausea, vomiting, abdominal discomfort, dizziness, lightheadedness, chest discomfort, shortness of breath, palpitations, changes in urinary or bowel habits. Patient states he has had this wound since March when a large tree trunk fell on his left great toe. In the emergency department, x-ray concerning for increasing bone destruction likely related to osteomyelitis. Also noted air in soft tissue of great toe Review of Systems Constitutional: Constitutional: Reports no additional constitutional complaints Cardiovascular: Cardiovascular: Reports no additional cardiovascular complaints Respiratory: Respiratory: Reports no additional respiratory complaints Gastrointestinal: Gastrointestinal: Reports no additional gastrointestinal c omplaints Genitourinary: Genitourinary: Reports no additional male genitourinary complaints Musculoskeletal: Musculoskeletal: Reports arthralgias and Reports joint swelling [facility] Medical History Elevated TSH Gout HTN (hypertension) Obesity Paronychia of great toe Screening PSA (prostate specific antigen) Varicose veins of both lower extremities Family History Father HTN (hypertension) Mother Parkinsons disease Surgical History Hx of colonoscopy Hx of vascular surgery Social History Household Members: Spouse Housing: House Are you a primary managed care director to a significant other at home: No Do you presently have visiting nurse or other home services: No Alcohol intake: current Alcohol intake frequency: a few times a week Patient Tobacco Use Status: Never used Tobacco Advance Directives: Yes Advance Directives on File: Yes Advance Directives Date on File: 04/09/22 service: No Current occupational status: employed and retired Meds Allergies Allergy/AdvReac Type Severity Reaction Status Date / Time No Known Allergies Allergy Verified 06/15/22 10:31 [No Known Allergies*] Active Medications: Current Medications Acetaminophen (Acetaminophen 325 Mg Tablet) 650 mg PO Q6H PRN PRN Reason: Pain, Mild (Pain Scale 1-3) Dextrose (Dextrose 50 % 25 Gm/50 Ml Syringe) 25 gm IVPUSH Q15M PRN; Protocol PRN Reason: per Hypoglycemia Standing Ord. Enoxaparin Sodium (Enoxaparin Sodium 40 Mg/0.4 Ml Syringe) 40 mg SUBCUT Q24H [facility] Glucose (Glucose Gel 15 Gm Gel..Gram.) 15 gm PO Q15M PRN; Protocol PRN Reason: per Hypoglycemia Standing Ord. Piperacillin Sod/Tazobactam (Sod 4.5 gm/ Sodium Chloride) 100 mls @ 200 mls/hr IV Q6H [facility] Last Admin: 06/26/22 22:15 Dose: 200 mls/hr Clindamycin Phosphate (Cleocin) 900 mg in 50 mls @ 50 mls/hr IV Q8H [facility] Insulin Human Lispro (Insulin Lispro 100 Unit/Ml 3 Ml Vial) 0 unit SUBCUT QIDACHS [facility]; Protocol Melatonin (Melatonin 3 Mg Tablet) 6 mg PO BEDTIME PRN PRN Reason: Insomnia Ondansetron HCl (Ondansetron Hcl 4 Mg/2 Ml Vial) 4 mg IVPUSH Q8H PRN PRN Reason: Nausea and Vomiting Pharmacy Consult (Consult Rx Vancomycin Dosing) 1 each MISCELLANE DAILY PRN PRN Reason: Consult order Pharmacy Consult (Consult Rx Vancomycin Dosing) 1 each MISCELLANE DAILY PRN PRN Reason: Consult order Sodium Chloride (0.9 % Sodium Chloride Flush 3 Ml Syringe) [facility] Medications Medication Instructions Recorded Confirmed Last Taken Type ibuprofen 200 mg tablet 200 mg PO Q6H PRN Fever 06/26/22 06/26/22 06/26/22 History Physical Exam Vital Signs and Narrative: Vital Signs: Last Vital Signs Temp 98.4 F 06/26/22 20:00 Pulse 64 06/26/22 20:00 Resp 16 06/26/22 20:00 BP 115/65 06/26/22 20:00 Pulse Ox 98 06/26/22 20:00 O2 Del Method 06/26/22 20:00 BMI result Body Mass Index 36.6 Middle-aged male lying in bed in no distress Neck supple, no JVD Regular rate and rhythm, S1-S2 heard Regular breath sounds bilaterally, no wheezing or crackles appreciated Abdomen soft nontender, no guarding, no rigidity Patient is awake, alert and oriented to self, place, time and person ; no focal motor deficit Msk: left great toe covered with dressing Psych: Normal mood No pedal edema Results Labs CBC and Chem 7: 06/26/22 13:13 06/26/22 13:13 Labs: Laboratory Results - last 24 hr 06/26/22 06/26/22 06/26/22 13:13 13:13 13:13 MCV 95.0 MCH 32.3 MCHC 34.0 RDW 13.1 Plt Count 460 H D MPV 9.1 L Immature Gran % (Auto) 0.6 H Neut % (Auto) 74.9 H Lymph % (Auto) 13.8 L [place] % (Auto) 7.3 Eos % (Auto) 2.6 Baso % (Auto) 0.8 Lymph # (Auto) 1.6 [place] # (Auto) 0.9 Eos # (Auto) 0.3 Baso # (Auto) 0.1 Abs Immat Gran (auto) 0.07 H Absolute Neuts (auto) 8.9 H Absolute Nucleated RBC 0.000 Nucleated RBC % (auto) 0.0 ESR 82 H Anion Gap 17 Estim Creat Clear Calc 62.9 Estimated GFR 50 Random Glucose 165 H D Lactic Acid Calcium 9.8 Total Bilirubin 0.7 AST 16 D ALT 20 Alkaline Phosphatase 104 C-Reactive Protein 7.56 H Total Protein 8.2 H Albumin 3.7 COVID-19 (LEO) COVID-19 Clin Com 06/26/22 06/26/22 15:25 20:07 MCV MCH MCHC RDW Plt Count MPV Immature Gran % (Auto) Neut % (Auto) Lymph % (Auto) [place] % (Auto) Eos % (Auto) Baso % (Auto) Lymph # (Auto) [place] # (Auto) Eos # (Auto) Baso # (Auto) Abs Immat Gran (auto) Absolute Neuts (auto) Absolute Nucleated RBC Nucleated RBC % (auto) ESR Anion Gap Estim Creat Clear Calc Estimated GFR Random Glucose Lactic Acid 1.1 Calcium Total Bilirubin AST ALT Alkaline Phosphatase C-Reactive Protein Total Protein Albumin COVID-19 (LEO) Negative COVID-19 Clin Com See Note Imaging Radiologist's Impressions: Impressions Foot X-Ray 06/26/22 15:52 IMPRESSION: Increasing bone destruction of the distal phalanx of the great toe and pathologic fracture of the distal aspect of the proximal phalanx of the great toe likely related to osteomyelitis. Increasing soft tissue swelling and abnormal air in the soft tissues of the great toe. Assessment and Plan (1) Toe infection: Status: Acute (2) HTN (hypertension): Status: Acute (3) Obesity: Status: Acute Plan This is a 67-year-old male with pertinent history of essential hypertension, mixed hyperlipidemia, gout who presents to the emergency department for evaluation of left big toe nonhealing wound. #. Left great toe osteomyelitis -with non healing wound. Will admit patient with broad-spectrum empiric IV antibiotics, vancomycin and Zosyn. Consulted General surgery and Infectious Disease for assistance. Imaging also concerning for air in soft tissues, added clindamycin. #. Acute kidney injury, stage I nonoliguric - prerenal versus ATN due to infection. Monitor creatinine and urine output with IV fluid resuscitation #. Pre-diabetes -due previous A1c 6. Repeat A1c. Initiating Accu-Checks with sliding scale insulin. #. Reactive thrombocytosis due to above #. Essential HTN - Hold hydrochlorothiazide and lisinopril in the setting of KHADIJAH #. Gout Continue allopurinol DVT prophylaxis: Lovenox 40 mg daily Full code Cardiac diet Admit as inpatient and will require two night minimum hospital stay for IV antibiotics and evaluation of great toe infection Quality Stroke Does the patient have a stroke diagnosis?: No VTE Prior VTE?: No VTE Risk Level:: Medical - moderate - high VTE Device Contraindication: Treatment Not Indicated VTE Drug Contraindication: N/A - Med Ordered
[2022-06-26] MEDS: Enoxaparin Sodium 40 MG/0.4 ML SYRINGE SUBCUT (22:17)
[2022-06-26 22:25] LABS: Glucose, Whole Blood 98 mg/dL (60-115)
[2022-06-26 23:53] VITALS: BMI 36.6
[2022-06-27] VITALS (7 sets, daily range): BP systolic 104–153; BP diastolic 58–75; PULSE 59–68; RESP 16–18; TEMP 35.7–36.6; O2SAT 97–100
--- NOTE | 2022-06-27 | PC.NURSE ---
Patient is A/O X 4, Pupils are PERRLA, Respirations are even and non-labored, lung sound are clear. Discoloration and swelling to left toe and lower leg, dressing is intact with small amount of ?serosanguineous?drainage to the tip of the toe. Varicose vein to the left leg. Pt is resting comfortably, aware of plan of care.
[2022-06-27] MEDS: 0.9 % Sodium Chloride Flush 3 ML SYRINGE IVFLUSH ×4 (00:14→19:29)
[2022-06-27] MEDS: Piperacillin Sodium/Tazobactam 4.5 GM in 0.9 % Sodium Chloride 100 ML IV ×4 (02:20→19:17)
[2022-06-27] MEDS: Clindamycin Phosphate/D5W 900 MG/50 ML PIGGYBACK 50 MG IV ×3 (02:56→18:16)
[2022-06-27 03:37] LABS: Estimated Average Glucose 128 mg/dL; Hemoglobin A1c % 6.1 %
[2022-06-27 05:54] LABS: MANUAL DIFF FLAG NO
[2022-06-27 06:01] LABS: Basophils Absolute Auto 0.1 X10*3/uL (0.0-0.2); Basophils Percent Auto 1.3 % (0-2); Eosinophils Absolute Auto 0.4 X10*3/uL (0.0-0.4); Eosinophils Percent Auto 4.7 % (0-4); Hematocrit 36.9 % (42.0-52.0); Hemoglobin 12.3 g/dl (14.0-18.0); Imm Gran Abs Auto 0.05 X10*3/uL (0.00-0.03); Imm Gran Pct Auto 0.6 % (0.0-0.4); Lymphocytes Absolute Auto 1.9 X10*3/uL (1.2-4.9); Lymphocytes Percent Auto 21.5 % (20-40); Mean Corpuscular HGB Conc 33.3 g/dl (31.0-36.0); Mean Corpuscular Hemoglobin 31.9 pg (27.0-33.0); Mean Corpuscular Volume 95.8 fL (80.0-98.0); Mean Platelet Volume 9.6 fL (9.4-12.4); Neutrophils Absolute Auto 5.5 x10*3/uL (2.0-8.3); Neutrophils Percent Auto 60.9 % (45-73); Platelet Count 418 X10*3/uL (160-400); Red Blood Count 3.85 X10*6/uL (4.60-5.80); Red Cell Distribution Width 13.3 % (11.0-16.0)
[2022-06-27 06:13] LABS: Anion Gap 13 (12-20); Blood Urea Nitrogen 22 mg/dL (9-16); Calcium 8.8 mg/dL (8.4-10.2); Carbon Dioxide 23 mmol/L (22-29); Chloride 107 mmol/L (96-108); Creatinine Clr Calc Pharmacy 72.7; Estimated Glomerular Filt Rate 59; Glucose Random 109 mg/dL (60-115); Sodium 138 mmol/L (135-145)
--- NOTE | 2022-06-27 07:00 | PHA.PROG ---
Admission Date/Time: June 26, 2022 20:09 Indication:Osteomylitis Weight in k.666 kg Adjusted body weight in K kg [place] body weight in K kg Obesity Dosing Indication % IBW: 157% Serum Creatinine - Last 168 Hours 06/26/22 06/27/22 13:13 05:18 Creatinine 1.41 H 1.22 Estimated CrCl and GFR - Last 168 Hours 06/26/22 06/27/22 13:13 05:18 Estim Creat Clear Calc 62.9 72.7 Estimated GFR 50 59 Vancomycin Loading Dose: 2000 mg Current Vancomycin Dosing Regimen: 1500 mg Q24H Date and Time for next Vancomycin Level to be drawn: 06/29 @ 2100 Pharmacist Comments on Vancomycin Plan: Patient is morbidly obese with a %IBW > 130%, therefore needs careful monitor as vancomycin. Patient received a vancomycin 2000 mg loading dose in the ED omn 06/26 @ 2259. Maintenance dose 1500 mg Q24H starting 06/27 @ 2300. Expected AUC 540 with a trough of 13.4 Trough to be drawn prior to 4th dose Pharmacy to monitor renal function daily. Cassy Ramirez, Samuel Vancomycin dosing will take advantage of [employer] as a clinical decision support tool that uses Bayesian modeling to calculate individual patient's pharmacokinetic parameters and forecast the patient's drug concentration time course with the target goal AUC 24 range of 400 - 600 mg/L/hr.
[2022-06-27 07:27] LABS: Glucose, Whole Blood 143 mg/dL (60-115)
--- NOTE | 2022-06-27 08:17 | PM.CNGS ---
History of Present Illness Consult details Consult date: 06/27/22 Narrative: 67-year-old male referred because of right big toe infection. He says that this started about 3 months ago when he says that a heavy piece of wood fell on his Right foot. He had an open wound right big toe at that time and this did not heal. He had imaging studies subsequently which showed osteomyelitis. He was on course of antibiotics for about 6 weeks. He says that the infection seemed to recur after completion of antibiotic treatment. He underwent debridement of the right big toe last week with Dr. Hadley. He says that since that time, he had noticed more swelling of the entire right big toe and persistence of the open wound with more drainage. He had no previous diagnosis of diabetes and his hemoglobin A1c was 6. Review of Systems Constitutional: Constitutional: Denies chills and Denies fever(s) Cardiovascular: Cardiovascular: Denies chest pain, Denies dyspnea and Denies dyspnea on exertion Respiratory: Respiratory: Denies cough, Denies dyspnea and Denies dyspnea on exertion Gastrointestinal: Gastrointestinal: Denies hematochezia and Denies change in bowel habits Genitourinary: Genitourinary: Denies hematuria and Denies difficulty urinating Musculoskeletal: Musculoskeletal: Denies back pain and Denies limited range of motion Neurologic: Denies focal weakness and Denies convulsions Psychiatric: Psychiatric: Denies depression and Denies mood swings PMFSH Past Medical History Medical History (Updated 06/27/22 @ 14:46 by Callum Locke DO) Elevated TSH Gout HTN (hypertension) Obesity Paronychia of great toe Screening PSA (prostate specific antigen) Varicose veins of both lower extremities Family History Family History Father HTN (hypertension) Mother Parkinsons disease Surgical History Surgical History Hx of colonoscopy Hx of vascular surgery Social History Social History Household Members: Spouse and Children Housing: House Are you a primary ambulatory care nurse to a significant other at home: No Do you presently have visiting nurse or other home services: No Alcohol intake: current Alcohol intake frequency: a few times a week Patient Tobacco Use Status: Never used Tobacco Advance Directives Date on File: 04/09/22 service: No Current occupational status: employed and retired Meds Allergies Allergy/AdvReac Type Severity Reaction Status Date / Time No Known Allergies Allergy Verified 06/15/22 10:31 [No Known Allergies*] Active Medications: Current Medications Acetaminophen (Acetaminophen 325 Mg Tablet) 650 mg PO Q6H PRN PRN Reason: Pain, Mild (Pain Scale 1-3) Allopurinol (Allopurinol 100 Mg Tablet) 100 mg PO DAILY [facility] Dextrose (Dextrose 50 % 25 Gm/50 Ml Syringe) 25 gm IVPUSH Q15M PRN; Protocol PRN Reason: per Hypoglycemia Standing Ord. Enoxaparin Sodium (Enoxaparin Sodium 40 Mg/0.4 Ml Syringe) 40 mg SUBCUT Q24H [facility] Last Admin: 06/26/22 22:17 Dose: 40 mg Glucose (Glucose Gel 15 Gm Gel..Gram.) 15 gm PO Q15M PRN; Protocol PRN Reason: per Hypoglycemia Standing Ord. Piperacillin Sod/Tazobactam (Sod 4.5 gm/ Sodium Chloride) 100 mls @ 200 mls/hr IV Q6H [facility] Last Infusion: 06/27/22 02:51 Dose: Infused Clindamycin Phosphate (Cleocin) 900 mg in 50 mls @ 50 mls/hr IV Q8H [facility] Last Infusion: 06/27/22 04:00 Dose: Infused Vancomycin HCl 1,500 mg/ (Sodium Chloride) 500 mls @ 333.333 mls/hr IV Q24H [facility] Insulin Human Lispro (Insulin Lispro 100 Unit/Ml 3 Ml Vial) 0 unit SUBCUT QIDACHS [facility]; Protocol Last Admin: 06/27/22 07:34 Dose: Not Given Melatonin (Melatonin 3 Mg Tablet) 6 mg PO BEDTIME PRN PRN Reason: Insomnia Ondansetron HCl (Ondansetron Hcl 4 Mg/2 Ml Vial) 4 mg IVPUSH Q8H PRN PRN Reason: Nausea and Vomiting Pharmacy Consult (Consult Rx Vancomycin Dosing) 1 each MISCELLANE DAILY PRN PRN Reason: Consult order Pharmacy Consult (Consult Rx Vancomycin Dosing) 1 each MISCELLANE DAILY PRN PRN Reason: Consult order Sodium Chloride (0.9 % Sodium Chloride Flush 3 Ml Syringe) 3 ml IVFLUSH QSHIFT [facility] Last Admin: 06/27/22 00:14 Dose: 3 ml Home Medications Medication Instructions Recorded Confirmed Last Taken Type ibuprofen 200 mg tablet 200 mg PO Q6H PRN Fever 06/26/22 06/26/22 06/26/22 History Physical Exam Vital Signs: Vital Signs: Last Vital Signs Temp 96.3 F L 06/27/22 08:00 Pulse 59 06/27/22 08:00 Resp 17 06/27/22 08:00 BP 104/61 06/27/22 08:00 Pulse Ox 98 06/27/22 08:00 O2 Del Method 06/27/22 08:00 BMI result Body Mass Index 36.6 Const: General: comfortable and no acute distress Orientation/consciousness: patient oriented x3 Neck: Neck: Yes no lymphadenopathy Resp: Auscultation: clear to auscultation bilaterally Cardio: Rhythm: regular rhythm GI: Palpation (GI): Soft to palpation, nontender and no guarding Neuro: General: patient oriented x3 Extrem: Other: Diffuse redness and swelling of the right big toe, with an open wound at the distal phalanx on the plantar aspect, and ulceration on the base at the proximal aspect, some drainage Results Labs Result diagrams: 06/27/22 05:18 06/28/22 06:01 Labs: Abnormal lab results 06/26/22 06/26/22 06/26/22 Range/Units 13:13 13:13 13:13 WBC 11.9 H (4.8-10.8) X10*3/uL RBC 4.24 L (4.60-5.80) X10*6/uL Hgb 13.7 L (14.0-18.0) g/dl Hct 40.3 L (42.0-52.0) % Plt Count 460 H D (160-400) X10*3/uL MPV 9.1 L (9.4-12.4) fL Immature Gran % (Auto) 0.6 H (0.0-0.4) % Neut % (Auto) 74.9 H (45-73) % Lymph % (Auto) 13.8 L (20-40) % Eos % (Auto) (0-4) % Abs Immat Gran (auto) 0.07 H (0.00-0.03) X10*3/uL Absolute Neuts (auto) 8.9 H (2.0-8.3) x10*3/uL ESR 82 H (0-15) MM/HR BUN 27 H D (9-16) mg/dL Creatinine 1.41 H (0.5-1.4) mg/dL POC Glucose (60-115) mg/dL Random Glucose 165 H D (60-115) mg/dL C-Reactive Protein 7.56 H (< or = 0.50) mg/dL Total Protein 8.2 H (6.5-8.0) g/dL 06/27/22 06/27/22 06/27/22 Range/Units 05:18 05:18 07:12 WBC (4.8-10.8) X10*3/uL RBC 3.85 L (4.60-5.80) X10*6/uL Hgb 12.3 L (14.0-18.0) g/dl Hct 36.9 L (42.0-52.0) % Plt Count 418 H (160-400) X10*3/uL MPV (9.4-12.4) fL Immature Gran % (Auto) 0.6 H (0.0-0.4) % Neut % (Auto) (45-73) % Lymph % (Auto) (20-40) % Eos % (Auto) 4.7 H (0-4) % Abs Immat Gran (auto) 0.05 H (0.00-0.03) X10*3/uL Absolute Neuts (auto) (2.0-8.3) x10*3/uL ESR (0-15) MM/HR BUN 22 H (9-16) mg/dL Creatinine (0.5-1.4) mg/dL POC Glucose 143 H (60-115) mg/dL Random Glucose (60-115) mg/dL C-Reactive Protein (< or = 0.50) mg/dL Total Protein (6.5-8.0) g/dL Short CBC 06/26/22 06/27/22 Range/Units 13:13 05:18 WBC 11.9 H 9.0 (4.8-10.8) X10*3/uL Hgb 13.7 L 12.3 L (14.0-18.0) g/dl Hct 40.3 L 36.9 L (42.0-52.0) % Plt Count 460 H D 418 H (160-400) X10*3/uL BMP 06/26/22 06/27/22 13:13 05:18 Sodium 136 138 Potassium 4.9 5.0 Chloride 100 107 Carbon Dioxide 24 23 BUN 27 H D 22 H Creatinine 1.41 H 1.22 Calcium 9.8 8.8 D Liver Function 06/26/22 Range/Units 13:13 Total Bilirubin 0.7 (0.0-1.0) mg/dL AST 16 D (5-37) U/L ALT 20 (0-40) U/L Alkaline Phosphatase 104 (39-117) U/L Albumin 3.7 (3.5-5.0) g/dL All other labs normal. Imaging Additional studies: Laboratory Results WBC 9.0 X10*3/uL (4.8-10.8) 06/27/22 05:18 RBC 3.85 X10*6/uL (4.60-5.80) L 06/27/22 05:18 Hgb 12.3 g/dl (14.0-18.0) L 06/27/22 05:18 Hct 36.9 % (42.0-52.0) L 06/27/22 05:18 MCV 95.8 fL (80.0-98.0) 06/27/22 05:18 MCH 31.9 pg (27.0-33.0) 06/27/22 05:18 MCHC 33.3 g/dl (31.0-36.0) 06/27/22 05:18 RDW 13.3 % (11.0-16.0) 06/27/22 05:18 Plt Count 418 X10*3/uL (160-400) H 06/27/22 05:18 MPV 9.6 fL (9.4-12.4) 06/27/22 05:18 Immature Gran % (Auto) 0.6 % (0.0-0.4) H 06/27/22 05:18 Neut % (Auto) 60.9 % (45-73) 06/27/22 05:18 Lymph % (Auto) 21.5 % (20-40) 06/27/22 05:18 [place] % (Auto) 11.0 % (2-11) 06/27/22 05:18 Eos % (Auto) 4.7 % (0-4) H 06/27/22 05:18 Baso % (Auto) 1.3 % (0-2) 06/27/22 05:18 Lymph # (Auto) 1.9 X10*3/uL (1.2-4.9) 06/27/22 05:18 [place] # (Auto) 1.0 X10*3/uL (0.1-1.2) 06/27/22 05:18 Eos # (Auto) 0.4 X10*3/uL (0.0-0.4) 06/27/22 05:18 Baso # (Auto) 0.1 X10*3/uL (0.0-0.2) 06/27/22 05:18 Abs Immat Gran (auto) 0.05 X10*3/uL (0.00-0.03) H 06/27/22 05:18 Absolute Neuts (auto) 5.5 x10*3/uL (2.0-8.3) 06/27/22 05:18 Absolute Nucleated RBC 0.000 X10*3/uL (0.0-0.012) 06/27/22 05:18 Nucleated RBC % (auto) 0.0 /100WBC (0.0-0.2) 06/27/22 05:18 ESR 82 MM/HR (0-15) H 06/26/22 13:13 Sodium 138 mmol/L (135-145) 06/27/22 05:18 Potassium 5.0 mmol/L (3.3-5.1) 06/27/22 05:18 Chloride 107 mmol/L (96-108) 06/27/22 05:18 Carbon Dioxide 23 mmol/L (22-29) 06/27/22 05:18 Anion Gap 13 (12-20) 06/27/22 05:18 BUN 22 mg/dL (9-16) H 06/27/22 05:18 Creatinine 1.22 mg/dL (0.5-1.4) 06/27/22 05:18 Estim Creat Clear Calc 72.7 06/27/22 05:18 Estimated GFR 59 06/27/22 05:18 POC Glucose 143 mg/dL (60-115) H 06/27/22 07:12 Random Glucose 109 mg/dL (60-115) 06/27/22 05:18 Estimat Average Glucose 128 mg/dL 06/27/22 00:03 Hemoglobin A1c % 6.1 % 06/27/22 00:03 Lactic Acid 1.1 mmol/L (0.5-2.0) 06/26/22 15:25 Calcium 8.8 mg/dL (8.4-10.2) D 06/27/22 05:18 Total Bilirubin 0.7 mg/dL (0.0-1.0) 06/26/22 13:13 AST 16 U/L (5-37) D 06/26/22 13:13 ALT 20 U/L (0-40) 06/26/22 13:13 Alkaline Phosphatase 104 U/L (39-117) 06/26/22 13:13 C-Reactive Protein 7.56 mg/dL (< or = 0.50) H 06/26/22 13:13 Total Protein 8.2 g/dL (6.5-8.0) H 06/26/22 13:13 Albumin 3.7 g/dL (3.5-5.0) 06/26/22 13:13 COVID-19 ([facility]) Negative (Negative) 06/26/22 20:07 COVID-19 Clin Com See Note 06/26/22 20:07 Impressions Foot X-Ray 06/26/22 15:52 IMPRESSION: Increasing bone destruction of the distal phalanx of the great toe and pathologic fracture of the distal aspect of the proximal phalanx of the great toe likely related to osteomyelitis. Increasing soft tissue swelling and abnormal air in the soft tissues of the great toe. Assessment and Plan (1) Toe infection: Status: Acute He has a persistent infection of the right big toe. His x-ray suggests worsening of the osteomyelitis on the distal phalanx along with a pathologic fracture on the proximal phalanx. I have changed his dressings and cleaned the wound and rewrapped this. I explained to him that with worsening osteomyelitis, he may benefit from amputation of this right big toe. We may continue with IV antibiotics for now. He does not appear septic. The air seen within the soft tissue is secondary to the open wound. There is no evidence of an ongoing necrotizing process. He says he will discuss the option of amputation with Dr. Hadley Procedures Date of Service Date of Service: 06/28/22
[2022-06-27] MEDS: allopurinoL 100 MG TABLET PO (08:59)
[2022-06-27 11:10] LABS: Glucose, Whole Blood 129 mg/dL (60-115)
--- NOTE | 2022-06-27 14:41 | HO.PM.IMPN ---
Subjective Subjective Date of Service: 06/27/22 Interval History: No acute issues overnight. Tolerant of therapies Review of Systems Denies chest pain Denies shortness of breath Denies nausea vomiting diarrhea Denies fever chills Physical Exam Vital Signs: Vital Signs: Last Vital Signs Temp 96.3 F L 06/27/22 11:32 Pulse 59 06/27/22 11:32 Resp 16 06/27/22 11:32 BP 140/75 H 06/27/22 11:32 Pulse Ox 100 06/27/22 11:32 O2 Del Method 06/27/22 11:32 BMI result Body Mass Index 36.6 Const: Other: No acute issues overnight Resp: Other: Clear to auscultation bilaterally no rales rhonchi or wheezes Cardio: Other: No S4; positive S1-S2; no S3 murmurs rubs or gallops GI: Other: Soft nontender nondistended normoactive bowel sounds Extrem: Other: No edema bilaterally Objective Data Active Medications Acetaminophen (Acetaminophen 325 Mg Tablet) 650 mg PO Q6H PRN PRN Reason: Pain, Mild (Pain Scale 1-3) Allopurinol (Allopurinol 100 Mg Tablet) 100 mg PO DAILY [facility] Last Admin: 06/27/22 08:59 Dose: 100 mg Documented By: JUAN Dextrose (Dextrose 50 % 25 Gm/50 Ml Syringe) 25 gm IVPUSH Q15M PRN; Protocol PRN Reason: per Hypoglycemia Standing Ord. Enoxaparin Sodium (Enoxaparin Sodium 40 Mg/0.4 Ml Syringe) 40 mg SUBCUT Q24H [facility] Last Admin: 06/26/22 22:17 Dose: 40 mg Documented By: MCTA Glucose (Glucose Gel 15 Gm Gel..Gram.) 15 gm PO Q15M PRN; Protocol PRN Reason: per Hypoglycemia Standing Ord. Piperacillin Sod/Tazobactam (Sod 4.5 gm/ Sodium Chloride) 100 mls @ 200 mls/hr IV Q6H [facility] Last Admin: 06/27/22 14:32 Dose: 200 mls/hr Documented By: JUAN Clindamycin Phosphate (Cleocin) 900 mg in 50 mls @ 50 mls/hr IV Q8H [facility] Last Infusion: 06/27/22 12:13 Dose: 0 mls/hr Documented By: JUAN Vancomycin HCl 1,500 mg/ (Sodium Chloride) 500 mls @ 333.333 mls/hr IV Q24H [facility] Insulin Human Lispro (Insulin Lispro 100 Unit/Ml 3 Ml Vial) 0 unit SUBCUT QIDACHS [facility]; Protocol Last Admin: 06/27/22 11:13 Dose: Not Given Documented By: JUAN Non-Admin Reason: No Insulin Coverage Melatonin (Melatonin 3 Mg Tablet) 6 mg PO BEDTIME PRN PRN Reason: Insomnia Ondansetron HCl (Ondansetron Hcl 4 Mg/2 Ml Vial) 4 mg IVPUSH Q8H PRN PRN Reason: Nausea and Vomiting Pharmacy Consult (Consult Rx Vancomycin Dosing) 1 each MISCELLANE DAILY PRN PRN Reason: Consult order Pharmacy Consult (Consult Rx Vancomycin Dosing) 1 each MISCELLANE DAILY PRN PRN Reason: Consult order Sodium Chloride (0.9 % Sodium Chloride Flush 3 Ml Syringe) 3 ml IVFLUSH QSHIFT [facility] Last Admin: 06/27/22 14:32 Dose: 3 ml Documented By: JUAN Labs CBC & Chem 7: 06/27/22 05:18 06/27/22 05:18 Labs: Laboratory Results - last 24 hr 06/26/22 06/26/22 06/26/22 13:13 13:13 15:25 MCV MCH MCHC RDW Plt Count MPV Immature Gran % (Auto) Neut % (Auto) Lymph % (Auto) [place] % (Auto) Eos % (Auto) Baso % (Auto) Lymph # (Auto) [place] # (Auto) Eos # (Auto) Baso # (Auto) Abs Immat Gran (auto) Absolute Neuts (auto) Absolute Nucleated RBC Nucleated RBC % (auto) ESR 82 H Anion Gap Estim Creat Clear Calc Estimated GFR POC Glucose Random Glucose Estimat Average Glucose Hemoglobin A1c % Lactic Acid 1.1 Calcium C-Reactive Protein 7.56 H COVID-19 ([facility]) COVID-19 Clin Com 06/26/22 06/26/22 06/27/22 20:07 22:19 00:03 MCV MCH MCHC RDW Plt Count MPV Immature Gran % (Auto) Neut % (Auto) Lymph % (Auto) [place] % (Auto) Eos % (Auto) Baso % (Auto) Lymph # (Auto) [place] # (Auto) Eos # (Auto) Baso # (Auto) Abs Immat Gran (auto) Absolute Neuts (auto) Absolute Nucleated RBC Nucleated RBC % (auto) ESR Anion Gap Estim Creat Clear Calc Estimated GFR POC Glucose 98 Random Glucose Estimat Average Glucose 128 Hemoglobin A1c % 6.1 Lactic Acid Calcium C-Reactive Protein COVID-19 ([facility]) Negative COVID-19 Clin Com See Note 06/27/22 06/27/22 06/27/22 05:18 05:18 07:12 MCV 95.8 MCH 31.9 MCHC 33.3 RDW 13.3 Plt Count 418 H MPV 9.6 Immature Gran % (Auto) 0.6 H Neut % (Auto) 60.9 Lymph % (Auto) 21.5 [place] % (Auto) 11.0 Eos % (Auto) 4.7 H Baso % (Auto) 1.3 Lymph # (Auto) 1.9 [place] # (Auto) 1.0 Eos # (Auto) 0.4 Baso # (Auto) 0.1 Abs Immat Gran (auto) 0.05 H Absolute Neuts (auto) 5.5 Absolute Nucleated RBC 0.000 Nucleated RBC % (auto) 0.0 ESR Anion Gap 13 Estim Creat Clear Calc 72.7 Estimated GFR 59 POC Glucose 143 H Random Glucose 109 Estimat Average Glucose Hemoglobin A1c % Lactic Acid Calcium 8.8 D C-Reactive Protein COVID-19 ([facility]) COVID-19 Clin Com 06/27/22 10:58 MCV MCH MCHC RDW Plt Count MPV Immature Gran % (Auto) Neut % (Auto) Lymph % (Auto) [place] % (Auto) Eos % (Auto) Baso % (Auto) Lymph # (Auto) [place] # (Auto) Eos # (Auto) Baso # (Auto) Abs Immat Gran (auto) Absolute Neuts (auto) Absolute Nucleated RBC Nucleated RBC % (auto) ESR Anion Gap Estim Creat Clear Calc Estimated GFR POC Glucose 129 H Random Glucose Estimat Average Glucose Hemoglobin A1c % Lactic Acid Calcium C-Reactive Protein COVID-19 ([facility]) COVID-19 Clin Com Assessment and Plan (1) Acute osteomyelitis of toe of left foot: Status: Acute (2) HTN (hypertension): Status: Acute (3) Gout: Status: Acute Plan This is a 67-year-old male with pertinent history of essential hypertension, mixed hyperlipidemia, gout who presents to the emergency department for evaluation of left big toe nonhealing wound. 1.Left great toe osteomyelitis -continue IV vancomycin/Zosyn/clindamycin -discuss with surgery; will likely need amputation -ID input forthcoming 2.Essential HTN -restart hydrochlorothiazide and lisinopril -adjust as indicated 3.Gout -continue allopurinol Lovenox Full Code Will require ongoing hospitalization for IV antibiotics secondary to osteomyelitis Quality Stroke Does the patient have a stroke diagnosis?: No VTE Prior VTE?: No VTE Risk Level:: Medical - moderate - high VTE Device Contraindication: Treatment Not Indicated VTE Drug Contraindication: N/A - Med Ordered
[2022-06-27 15:47] LABS: Glucose, Whole Blood 103 mg/dL (60-115)
[2022-06-27] MEDS: Enoxaparin Sodium 40 MG/0.4 ML SYRINGE SUBCUT (19:30)
[2022-06-27 19:35] LABS: Glucose, Whole Blood 137 mg/dL (60-115)
[2022-06-27] MEDS: vancomycin HCL 1,500 MG in 0.9 % Sodium Chloride 500 ML 333.33 MG IV (23:13)
[2022-06-28] MEDS: Clindamycin Phosphate/D5W 900 MG/50 ML PIGGYBACK 50 MG IV ×3 (01:08→18:24)
[2022-06-28] MEDS: Piperacillin Sodium/Tazobactam 4.5 GM in 0.9 % Sodium Chloride 100 ML IV ×4 (02:16→19:24)
[2022-06-28 03:29] VITALS: BP 123/66; PULSE 56; RESP 18; TEMP 36.2; O2SAT 97
[2022-06-28 07:21] LABS: Creatinine Clr Calc Pharmacy 75.2; Estimated Glomerular Filt Rate > 60
[2022-06-28 07:37] LABS: Glucose, Whole Blood 106 mg/dL (60-115)
[2022-06-28 08:00] VITALS: BP 109/54; PULSE 60; RESP 19; TEMP 36.1; O2SAT 94
--- NOTE | 2022-06-28 08:02 | HE.PHANOTE ---
Vancomycin Dosing Addenum Renal function is improving. Current regimen still expected to be therapeutic with an AUC 520 and a trough of 12.6. Continue vanco 1500 mg Q24H. Trough to be drawn 06/29 @ 2100. Pharmacy will continue to monitor renal function. Cassy Ramirez, PharmD
[2022-06-28] MEDS: allopurinoL 100 MG TABLET PO (09:24)
[2022-06-28] MEDS: 0.9 % Sodium Chloride Flush 3 ML SYRINGE IVFLUSH ×3 (09:24→19:25)
--- NOTE | 2022-06-28 10:30 | P.PNGS_ITS ---
Subjective Subjective Date of Service: 06/28/22 Interval history: no new complaints less drainage from the big toe wound no fever reported Physical Exam Vital Signs: Vital Signs: Last Vital Signs Temp 96.9 F 06/28/22 08:00 Pulse 60 06/28/22 08:00 Resp 19 06/28/22 08:00 BP 109/54 L 06/28/22 08:00 Pulse Ox 94 06/28/22 08:00 O2 Del Method 06/28/22 08:00 BMI result Body Mass Index 36.6 Const: General: comfortable and no acute distress Orientation/consciousness: patient oriented x3 Neck: Neck: Yes no lymphadenopathy Resp: Auscultation: clear to auscultation bilaterally Cardio: Rhythm: regular rhythm GI: Palpation (GI): Soft to palpation, nontender and no guarding Neuro: General: patient oriented x3 Extrem: Other: open left big toe wound, persistent swelling of the entire toe with cellulitic changes Objective Data Active Medications Acetaminophen (Acetaminophen 325 Mg Tablet) 650 mg PO Q6H PRN PRN Reason: Pain, Mild (Pain Scale 1-3) Allopurinol (Allopurinol 100 Mg Tablet) 100 mg PO DAILY [facility] Last Admin: 06/28/22 09:24 Dose: 100 mg Documented By: JUAN Dextrose (Dextrose 50 % 25 Gm/50 Ml Syringe) 25 gm IVPUSH Q15M PRN; Protocol PRN Reason: per Hypoglycemia Standing Ord. Enoxaparin Sodium (Enoxaparin Sodium 40 Mg/0.4 Ml Syringe) 40 mg SUBCUT Q24H [facility] Last Admin: 06/27/22 19:30 Dose: 40 mg Documented By: CRUZORALDonaldo Glucose (Glucose Gel 15 Gm Gel..Gram.) 15 gm PO Q15M PRN; Protocol PRN Reason: per Hypoglycemia Standing Ord. Piperacillin Sod/Tazobactam (Sod 4.5 gm/ Sodium Chloride) 100 mls @ 200 mls/hr IV Q6H [facility] Last Infusion: 06/28/22 09:58 Dose: 0 mls/hr Documented By: JUAN Clindamycin Phosphate (Cleocin) 900 mg in 50 mls @ 50 mls/hr IV Q8H [facility] Last Infusion: 06/28/22 09:58 Dose: 50 mls/hr Documented By: JUAN Vancomycin HCl 1,500 mg/ (Sodium Chloride) 500 mls @ 333.333 mls/hr IV Q24H [facility] Last Infusion: 06/28/22 01:04 Dose: 0 mls/hr Documented By: OSITO Insulin Human Lispro (Insulin Lispro 100 Unit/Ml 3 Ml Vial) 0 unit SUBCUT QIDACHS [facility]; Protocol Last Admin: 06/28/22 07:41 Dose: Not Given Documented By: JUAN Non-Admin Reason: No Insulin Coverage Melatonin (Melatonin 3 Mg Tablet) 6 mg PO BEDTIME PRN PRN Reason: Insomnia Ondansetron HCl (Ondansetron Hcl 4 Mg/2 Ml Vial) 4 mg IVPUSH Q8H PRN PRN Reason: Nausea and Vomiting Pharmacy Consult (Consult Rx Vancomycin Dosing) 1 each MISCELLANE DAILY PRN PRN Reason: Consult order Pharmacy Consult (Consult Rx Vancomycin Dosing) 1 each MISCELLANE DAILY PRN PRN Reason: Consult order Sodium Chloride (0.9 % Sodium Chloride Flush 3 Ml Syringe) 3 ml IVFLUSH QSHIFT [facility] Last Admin: 06/28/22 09:24 Dose: 3 ml Documented By: JUAN Labs CBC & Chem 7: 06/27/22 05:18 06/28/22 06:01 Labs: Laboratory Results - last 24 hr 06/27/22 06/27/22 06/27/22 10:58 15:32 19:14 Estim Creat Clear Calc Estimated GFR POC Glucose 129 H 103 137 H 06/28/22 06/28/22 06:01 07:29 Estim Creat Clear Calc 75.2 Estimated GFR > 60 POC Glucose 106 Microbiology Microbiology Results: Microbiology 06/26/22 17:27 Blood Culture - Preliminary Blood - Venous No growth after 24 hours. 06/26/22 15:25 Blood Culture - Preliminary Blood - Venous No growth after 24 hours. Procedures Date of Service Date of Service: 06/28/22 Progress Note: A&P Assessment and plan (1) Cellulitis of left foot: Status: Acute Assessment and Plan: has osteomyelitis of the big toe has been on previous long-term IV antibiotic treatment persistent nonhealing of wound likely to benefit from amputation of the toe will inform Dr. Hadley continue antibiotic treatment for now dressings changed Time Spent With Patient Time: Total time spent is greater than 50% in coordination of care (as documented) at patient's floor/unit and/or counseling patient: Quality Stroke Does the patient have a stroke diagnosis?: No VTE Prior VTE?: No VTE Risk Level:: Medical - moderate - high VTE Device Contraindication: Treatment Not Indicated VTE Drug Contraindication: N/A - Med Ordered
--- NOTE | 2022-06-28 11:13 | MHC.CM.PN ---
Lives at home w/ (who has active CA w/[place] and uses a WC at baseline). Patient has no prior services or equipment and still drives. verbalized concern of patient returning home directly after hospital stay and is questioning the potential for inpatient STR. This CM explained PT evaluation process for D/C functional safety recommendations. verbalized understanding. detailed multiple stairs at every entrance to get into the home. D/C preferences: If home w/services, is requesting [facility]. If SNF for STR, is requesting [facility]. She indicates that Jorge most likely would prefer to D/C directly to home over the option of SNF. Please note: no prior equipment or services in the home for his use. CM to follow.
[2022-06-28 11:40] LABS: Glucose, Whole Blood 149 mg/dL (60-115)
[2022-06-28 12:00] VITALS: BP 124/59; PULSE 58; RESP 19; TEMP 36; O2SAT 97
--- NOTE | 2022-06-28 13:03 | P.PNIM_ITS ---
Subjective Subjective Date of Service: 06/28/22 Interval History: L toe swollen Pain controlled No fever Review of Systems Review of Systems: Yes all other systems are reviewed and are negative Physical Exam Vital Signs: Vital Signs: Last Vital Signs Temp 96.8 F 06/28/22 12:00 Pulse 58 06/28/22 12:00 Resp 19 06/28/22 12:00 BP 124/59 L 06/28/22 12:00 Pulse Ox 97 06/28/22 12:00 O2 Del Method 06/28/22 12:00 BMI result Body Mass Index 36.6 Gen: in no acute distress HEENT: sclera anicteric, moist mucus membranes Neck: supple Lungs: clear to auscultation bilaterally Heart: regular rate and rhythm, no murmurs Abd: soft, non-tender, non-distended Ext: no edema Skin: warm/well-perfused, L great toe swollen and erythematous with large draining wound Neuro: alert and oriented x3, no focal findings Psych: appropriate affect Objective Data Active Medications Acetaminophen (Acetaminophen 325 Mg Tablet) 650 mg PO Q6H PRN PRN Reason: Pain, Mild (Pain Scale 1-3) Allopurinol (Allopurinol 100 Mg Tablet) 100 mg PO DAILY [facility] Last Admin: 06/28/22 09:24 Dose: 100 mg Documented By: JUAN Dextrose (Dextrose 50 % 25 Gm/50 Ml Syringe) 25 gm IVPUSH Q15M PRN; Protocol PRN Reason: per Hypoglycemia Standing Ord. Enoxaparin Sodium (Enoxaparin Sodium 40 Mg/0.4 Ml Syringe) 40 mg SUBCUT Q24H [facility] Last Admin: 06/27/22 19:30 Dose: 40 mg Documented By: OSITO Glucose (Glucose Gel 15 Gm Gel..Gram.) 15 gm PO Q15M PRN; Protocol PRN Reason: per Hypoglycemia Standing Ord. Piperacillin Sod/Tazobactam (Sod 4.5 gm/ Sodium Chloride) 100 mls @ 200 mls/hr IV Q6H [facility] Last Infusion: 06/28/22 09:58 Dose: 0 mls/hr Documented By: JUAN Clindamycin Phosphate (Cleocin) 900 mg in 50 mls @ 50 mls/hr IV Q8H [facility] Last Infusion: 06/28/22 11:15 Dose: 0 mls/hr Documented By: JUAN Vancomycin HCl 1,500 mg/ (Sodium Chloride) 500 mls @ 333.333 mls/hr IV Q24H [facility] Last Infusion: 06/28/22 01:04 Dose: 0 mls/hr Documented By: OSITO Insulin Human Lispro (Insulin Lispro 100 Unit/Ml 3 Ml Vial) 0 unit SUBCUT QIDACHS [facility]; Protocol Last Admin: 06/28/22 11:50 Dose: Not Given Documented By: JUAN Non-Admin Reason: No Insulin Coverage Melatonin (Melatonin 3 Mg Tablet) 6 mg PO BEDTIME PRN PRN Reason: Insomnia Ondansetron HCl (Ondansetron Hcl 4 Mg/2 Ml Vial) 4 mg IVPUSH Q8H PRN PRN Reason: Nausea and Vomiting Pharmacy Consult (Consult Rx Vancomycin Dosing) 1 each MISCELLANE DAILY PRN PRN Reason: Consult order Pharmacy Consult (Consult Rx Vancomycin Dosing) 1 each MISCELLANE DAILY PRN PRN Reason: Consult order Sodium Chloride (0.9 % Sodium Chloride Flush 3 Ml Syringe) 3 ml IVFLUSH QSHIFT [facility] Last Admin: 06/28/22 09:24 Dose: 3 ml Documented By: JUAN Labs CBC & Chem 7: 06/27/22 05:18 06/28/22 06:01 Labs: Laboratory Results - last 24 hr 06/27/22 06/27/22 06/28/22 15:32 19:14 06:01 Estim Creat Clear Calc 75.2 Estimated GFR > 60 POC Glucose 103 137 H 06/28/22 06/28/22 07:29 11:20 Estim Creat Clear Calc Estimated GFR POC Glucose 106 149 H Microbiology Microbiology Results: Microbiology 06/26/22 17:27 Blood Culture - Preliminary Blood - Venous No growth after 24 hours. 06/26/22 15:25 Blood Culture - Preliminary Blood - Venous No growth after 24 hours. Assessment and Plan (1) Acute osteomyelitis of toe of left foot: Status: Acute (2) HTN (hypertension): Status: Acute (3) Gout: Status: Acute Plan d#3 67yo F with HTN, HLD, gout admitted with non-healing L great toe wound with osteomyelitis despite 6 wk of IV ABX and operative debridement # L great toe osteomyelitis - d#3 IV vanco/pip-andrew/clinda - follow BCx - ID consult pending - Gen Surg consulted, amputation recommended but pt declined and wishes to speak to his primary surgeon tomorrow # HTN - HCTZ + lisinopril # gout - allopurinol # VTE ppx: LMWH In my clinical judgment, the patient requires continued inpatient hosp italization for the following reasons: IV ABX Quality Stroke Does the patient have a stroke diagnosis?: No VTE Prior VTE?: No VTE Risk Level:: Medical - moderate - high VTE Device Contraindication: Treatment Not Indicated VTE Drug Contraindication: N/A - Med Ordered
[2022-06-28 15:48] VITALS: BP 130/64; PULSE 60; RESP 17; TEMP 36.3; O2SAT 99
[2022-06-28 15:56] LABS: Glucose, Whole Blood 107 mg/dL (60-115)
[2022-06-28] MEDS: Enoxaparin Sodium 40 MG/0.4 ML SYRINGE SUBCUT (19:25)
[2022-06-28 19:40] VITALS: BP 130/61; PULSE 64; RESP 18; TEMP 36.3; O2SAT 97
[2022-06-28 19:54] LABS: Glucose, Whole Blood 149 mg/dL (60-115)
[2022-06-28] MEDS: vancomycin HCL 1,500 MG in 0.9 % Sodium Chloride 500 ML 333.3 MG IV (23:14)
[2022-06-29] VITALS: BP 151/70; PULSE 55; RESP 18; TEMP 36.3; O2SAT 99
[2022-06-29] MEDS: Piperacillin Sodium/Tazobactam 4.5 GM in 0.9 % Sodium Chloride 100 ML IV ×4 (02:07→20:23)
[2022-06-29] MEDS: Clindamycin Phosphate/D5W 900 MG/50 ML PIGGYBACK 50 MG IV ×3 (02:46→18:18)
[2022-06-29 03:25] VITALS: BP 111/59; PULSE 63; RESP 18; TEMP 36.3; O2SAT 98
[2022-06-29 07:27] LABS: Glucose, Whole Blood 99 mg/dL (60-115)
[2022-06-29 07:40] VITALS: BP 126/57; PULSE 58; RESP 18; TEMP 36.3; O2SAT 96
[2022-06-29] MEDS: hydroCHLOROthiazide 12.5 MG TABLET PO (07:47)
[2022-06-29] MEDS: lisinopriL 40 MG TABLET PO (07:47)
[2022-06-29] MEDS: allopurinoL 100 MG TABLET PO (07:47)
[2022-06-29] MEDS: 0.9 % Sodium Chloride Flush 3 ML SYRINGE IVFLUSH ×3 (07:50→20:23)
[2022-06-29 11:01] VITALS: BP 98/58; PULSE 60; RESP 18; TEMP 36.6; O2SAT 97
[2022-06-29 11:17] LABS: Glucose, Whole Blood 143 mg/dL (60-115)
--- NOTE | 2022-06-29 11:19 | P.PNIM_ITS ---
Subjective Subjective Date of Service: 06/29/22 Interval History: declines amputation seen by surgeon and wishes to try 6 wk of IV ABX again no fever Review of Systems Review of Systems: Yes all other systems are reviewed and are negative Physical Exam Vital Signs: Vital Signs: Last Vital Signs Temp 97.8 F 06/29/22 11:01 Pulse 60 06/29/22 11:01 Resp 18 06/29/22 11:01 BP 98/58 L 06/29/22 11:01 Pulse Ox 97 06/29/22 11:01 O2 Del Method 06/29/22 11:01 BMI result Body Mass Index 36.6 Gen: in no acute distress HEENT: sclera anicteric, moist mucus membranes Neck: supple Lungs: clear to auscultation bilaterally Heart: regular rate and rhythm, no murmurs Abd: soft, non-tender, non-distended Ext: no edema Skin: warm/well-perfused, L great toe swollen and erythematous with large draining wound Neuro: alert and oriented x3, no focal findings Psych: appropriate affect Objective Data Active Medications Acetaminophen (Acetaminophen 325 Mg Tablet) 650 mg PO Q6H PRN PRN Reason: Pain, Mild (Pain Scale 1-3) Allopurinol (Allopurinol 100 Mg Tablet) 100 mg PO DAILY [facility] Last Admin: 06/29/22 07:47 Dose: 100 mg Documented By: ZAKIYA Enoxaparin Sodium (Enoxaparin Sodium 40 Mg/0.4 Ml Syringe) 40 mg SUBCUT Q24H [facility] Last Admin: 06/28/22 19:25 Dose: 40 mg Documented By: CRUZORALB Hydrochlorothiazide (Hydrochlorothiazide 12.5 Mg Tablet) 12.5 mg PO DAILY [facility]; Protocol Last Admin: 06/29/22 07:47 Dose: 12.5 mg Documented By: ZAKIYA Piperacillin Sod/Tazobactam (Sod 4.5 gm/ Sodium Chloride) 100 mls @ 200 mls/hr IV Q6H [facility] Last Infusion: 06/29/22 09:09 Dose: 0 mls/hr Documented By: ZAKIYA Clindamycin Phosphate (Cleocin) 900 mg in 50 mls @ 50 mls/hr IV Q8H [facility] Last Admin: 06/29/22 10:29 Dose: 50 mls/hr Documented By: ZAKIYA Vancomycin HCl 1,500 mg/ (Sodium Chloride) 500 mls @ 333.333 mls/hr IV Q24H [facility] Last Infusion: 06/29/22 00:55 Dose: 0 mls/hr Documented By: OSITO Lisinopril (Lisinopril 40 Mg Tablet) 40 mg PO DAILY [facility]; Protocol Last Admin: 06/29/22 07:47 Dose: 40 mg Documented By: ZAKIYA Melatonin (Melatonin 3 Mg Tablet) 6 mg PO BEDTIME PRN PRN Reason: Insomnia Ondansetron HCl (Ondansetron Hcl 4 Mg/2 Ml Vial) 4 mg IVPUSH Q8H PRN PRN Reason: Nausea and Vomiting Pharmacy Consult (Consult Rx Vancomycin Dosing) 1 each MISCELLANE DAILY PRN PRN Reason: Consult order Pharmacy Consult (Consult Rx Vancomycin Dosing) 1 each MISCELLANE DAILY PRN PRN Reason: Consult order Sodium Chloride (0.9 % Sodium Chloride Flush 3 Ml Syringe) 3 ml IVFLUSH QSHIFT [facility] Last Admin: 06/29/22 07:50 Dose: 3 ml Documented By: ZAKIYA Labs CBC & Chem 7: 06/27/22 05:18 06/28/22 06:01 Labs: Laboratory Results - last 24 hr 06/28/22 06/28/22 06/28/22 11:20 15:50 19:46 POC Glucose 149 H 107 149 H 06/29/22 06/29/22 07:15 10:59 POC Glucose 99 143 H Microbiology Microbiology Results: Microbiology 06/26/22 17:27 Blood Culture - Preliminary Blood - Venous No growth after 48 hours. 06/26/22 15:25 Blood Culture - Preliminary Blood - Venous No growth after 48 hours. Assessment and Plan (1) Acute osteomyelitis of toe of left foot: Status: Acute (2) HTN (hypertension): Status: Acute (3) Gout: Status: Acute Plan d#4 67yo F with HTN, HLD, gout admitted with non-healing L great toe wound with osteomyelitis despite 6 wk of IV ABX and operative debridement # L great toe ulcer with cellulitis and osteomyelitis - d#4 IV vanco/pip-andrew/clinda - follow BCx - ID consult pending - Gen Surg consulted - pt declines amputation and will pursue 6 wk of IV ABX via PICC recognizing that he is at high risk of requiring amputation # HTN - HCTZ + lisinopril # gout - allopurinol # VTE ppx: LMWH In my clinical judgment, the patient requires continued inpatient hospitalization for the following reasons: IV ABX Quality Stroke Does the patient have a stroke diagnosis?: No VTE Prior VTE?: No VTE Risk Level:: Medical - moderate - high VTE Device Contraindication: Treatment Not Indicated VTE Drug Contraindication: N/A - Med Ordered
--- NOTE | 2022-06-29 12:44 | PM.PNGS ---
Subjective Subjective Date of Service: 06/29/22 Interval history: Patient reports decreased pain and swelling in the left foot continues to have discharge from the wound. Physical Exam Vital Signs: Vital Signs: Last Vital Signs Temp 97.8 F 06/29/22 11:01 Pulse 60 06/29/22 11:01 Resp 18 06/29/22 11:01 BP 98/58 L 06/29/22 11:01 Pulse Ox 97 06/29/22 11:01 O2 Del Method 06/29/22 11:01 BMI result Body Mass Index 36.6 Const: General: comfortable and no acute distress Nutritional Appearance: well nourished Orientation/consciousness: patient oriented x3 Limitations: no limitations Resp: Effort & Inspection: normal respiratory effort Skin: Other: Warm, dry, no rash Neuro: General: patient oriented x3 Extrem: Other: dressings changed to the left foot. Serous discharge noted from the distal tip. New ulcer in noted in the webspace between the 1st and 2nd toes. No area purulent discharge noted from the site. Animal erythema noted in the toe and forefoot. Clean dressings applied Objective Data Active Medications Acetaminophen (Acetaminophen 325 Mg Tablet) 650 mg PO Q6H PRN PRN Reason: Pain, Mild (Pain Scale 1-3) Allopurinol (Allopurinol 100 Mg Tablet) 100 mg PO DAILY [facility] Last Admin: 06/29/22 07:47 Dose: 100 mg Documented By: ZAKIYA Enoxaparin Sodium (Enoxaparin Sodium 40 Mg/0.4 Ml Syringe) 40 mg SUBCUT Q24H [facility] Last Admin: 06/28/22 19:25 Dose: 40 mg Documented By: OZORALB Hydrochlorothiazide (Hydrochlorothiazide 12.5 Mg Tablet) 12.5 mg PO DAILY [facility]; Protocol Last Admin: 06/29/22 07:47 Dose: 12.5 mg Documented By: ZAKIYA Piperacillin Sod/Tazobactam (Sod 4.5 gm/ Sodium Chloride) 100 mls @ 200 mls/hr IV Q6H [facility] Last Infusion: 06/29/22 09:09 Dose: 0 mls/hr Documented By: ZAKIYA Clindamycin Phosphate (Cleocin) 900 mg in 50 mls @ 50 mls/hr IV Q8H [facility] Last Infusion: 06/29/22 11:42 Dose: 0 mls/hr Documented By: ZAKIYA Vancomycin HCl 1,500 mg/ (Sodium Chloride) 500 mls @ 333.333 mls/hr IV Q24H [facility] Last Infusion: 06/29/22 00:55 Dose: 0 mls/hr Documented By: CRUZORALB Lisinopril (Lisinopril 40 Mg Tablet) 40 mg PO DAILY [facility]; Protocol Last Admin: 06/29/22 07:47 Dose: 40 mg Documented By: ZAKIYA Melatonin (Melatonin 3 Mg Tablet) 6 mg PO BEDTIME PRN PRN Reason: Insomnia Ondansetron HCl (Ondansetron Hcl 4 Mg/2 Ml Vial) 4 mg IVPUSH Q8H PRN PRN Reason: Nausea and Vomiting Pharmacy Consult (Consult Rx Vancomycin Dosing) 1 each MISCELLANE DAILY PRN PRN Reason: Consult order Pharmacy Consult (Consult Rx Vancomycin Dosing) 1 each MISCELLANE DAILY PRN PRN Reason: Consult order Sodium Chloride (0.9 % Sodium Chloride Flush 3 Ml Syringe) 3 ml IVFLUSH QSHIFT [facility] Last Admin: 06/29/22 07:50 Dose: 3 ml Documented By: ZAKIYA Labs CBC & Chem 7: 06/27/22 05:18 06/28/22 06:01 Labs: Laboratory Results - last 24 hr 06/28/22 06/28/22 06/29/22 15:50 19:46 07:15 POC Glucose 107 149 H 99 06/29/22 10:59 POC Glucose 143 H Microbiology Microbiology Results: Microbiology 06/26/22 17:27 Blood Culture - Preliminary Blood - Venous No growth after 48 hours. 06/26/22 15:25 Blood Culture - Preliminary Blood - Venous No growth after 48 hours. Procedures Date of Service Date of Service: 06/29/22 Progress Note: A&P Assessment and plan (1) Toe infection: Status: Acute Plan 67-year-old male patient with left great toe osteomyelitis status post bone biopsy for culture. Patient returns with increased pain, redness and swelling and admitted for IV antibiotics. Patient reports the swelling and pain of decreased. Culture review, reveals multiple bacteria including MRSA , Proteus mirabilis, and B. frag. Patient currently on Zosyn and clindamycin. I discussed options of toe amputation verses IV antibiotics. I recommended continued IV antibiotics, with amputation if no improvement. He agrees with the plan. Discussed with Dr. Rivera. Time Spent With Patient Time: Total time spent is greater than 50% in coordination of care (as documented) at patient's floor/unit and/or counseling patient: Quality Stroke Does the patient have a stroke diagnosis?: No VTE Prior VTE?: No VTE Risk Level:: Medical - moderate - high VTE Device Contraindication: Treatment Not Indicated VTE Drug Contraindication: N/A - Med Ordered
[2022-06-29 15:28] VITALS: BP 114/63; PULSE 50; RESP 14; TEMP 36.1; O2SAT 100
--- NOTE | 2022-06-29 16:40 | W.PM.IDCN ---
History of Present Illness Data of Consult Service Date: 06/29/22 Requesting physician: Cassy Rivera Primary Care Provider: Fausto Pat ASSOCIATE STORE DIRECTOR- HPI Reason for consult: left great toe refractory osteomyelitis He presents with left great toe swelling and discomfort and failure to improve. He had six weeks IV Ertapenem and po Doxycycline with no improvement in foot. He has no fever or chills. He is seeing Dr Hadley. He wants definitive surgical therapy for foot since is ill with malignancy and he has to be able to be active. Review of Systems Review of Systems: Yes all other systems are reviewed and are negative PMFSH Past Medical History Medical History Elevated TSH Gout HTN (hypertension) Obesity Paronychia of great toe Screening PSA (prostate specific antigen) Varicose veins of both lower extremities Family History Family History Father HTN (hypertension) Mother Parkinsons disease Family history: reviewed and not pertinent Surgical History Surgical History Hx of colonoscopy Hx of vascular surgery Status post debridement (06/16/22) Social History Social History Household Members: Spouse and Children Housing: House Are you a primary critical care nurse to a significant other at home: No Do you presently have visiting nurse or other home services: No Alcohol intake: current Alcohol intake frequency: a few times a week Patient Tobacco Use Status: Never used Tobacco Use of substances other than those prescribed or required for medical reasons: No Currently Displaying Signs/Symptoms of Drug Intoxication Withdrawal: No Have you been hit, kicked, punched, or otherwise hurt by someone within the past year? If so, by whom?: No Do you feel safe in your current relationship?: Yes Is there a partner from a previous relationship who is making you feel unsafe now?: No Are you made to feel afraid or neglected: No Advance Directives: Yes Advance Directives on File: Yes Advance Directives Date on File: 04/09/22 Do you have thoughts of harming others: None Do you have a plan to hurt others: No Plan Recently lost weight without trying: Yes How much weight loss: 2-13 pounds Eating poorly because of decreased appetite: No Nutrition screen score: 3 Nutrition Risks: No Nutritional Risk Poor oral hygiene: No service: No Current occupational status: retired Meds Allergies Allergy/AdvReac Type Severity Reaction Status Date / Time No Known Allergies Allergy Verified 06/15/22 10:31 [No Known Allergies*] Active Medications: Current Medications Acetaminophen (Acetaminophen 325 Mg Tablet) 650 mg PO Q6H PRN PRN Reason: Pain, Mild (Pain Scale 1-3) Allopurinol (Allopurinol 100 Mg Tablet) 100 mg PO DAILY [facility] Last Admin: 06/29/22 07:47 Dose: 100 mg Enoxaparin Sodium (Enoxaparin Sodium 40 Mg/0.4 Ml Syringe) 40 mg SUBCUT Q24H [facility] Last Admin: 06/28/22 19:25 Dose: 40 mg Hydrochlorothiazide (Hydrochlorothiazide 12.5 Mg Tablet) 12.5 mg PO DAILY [facility]; Protocol Last Admin: 06/29/22 07:47 Dose: 12.5 mg Piperacillin Sod/Tazobactam (Sod 4.5 gm/ Sodium Chloride) 100 mls @ 200 mls/hr IV Q6H [facility] Last Infusion: 06/29/22 16:23 Dose: Infused Clindamycin Phosphate (Cleocin) 900 mg in 50 mls @ 50 mls/hr IV Q8H [facility] Last Infusion: 06/29/22 11:42 Dose: Infused Vancomycin HCl 1,500 mg/ (Sodium Chloride) 500 mls @ 333.333 mls/hr IV Q24H [facility] Last Infusion: 06/29/22 00:55 Dose: Infused Lisinopril (Lisinopril 40 Mg Tablet) 40 mg PO DAILY [facility]; Protocol Last Admin: 06/29/22 07:47 Dose: 40 mg Melatonin (Melatonin 3 Mg Tablet) 6 mg PO BEDTIME PRN PRN Reason: Insomnia Ondansetron HCl (Ondansetron Hcl 4 Mg/2 Ml Vial) 4 mg IVPUSH Q8H PRN PRN Reason: Nausea and Vomiting Pharmacy Consult (Consult Rx Vancomycin Dosing) 1 each MISCELLANE DAILY PRN PRN Reason: Consult order Pharmacy Consult (Consult Rx Vancomycin Dosing) 1 each MISCELLANE DAILY PRN PRN Reason: Consult order Sodium Chloride (0.9 % Sodium Chloride Flush 3 Ml Syringe) 3 ml IVFLUSH QSHIFT [facility] Last Admin: 06/29/22 14:34 Dose: 3 ml Home Medications Medication Instructions Recorded Confirmed Last Taken Type ibuprofen 200 mg tablet 200 mg PO Q6H PRN Fever 06/26/22 06/26/22 06/26/22 History Physical Exam Vital Signs: Vital Signs: Last Vital Signs Temp 97.0 F 06/29/22 15:28 Pulse 50 06/29/22 15:28 Resp 14 06/29/22 15:28 BP 114/63 06/29/22 15:28 Pulse Ox 100 06/29/22 15:28 O2 Del Method 06/29/22 15:28 BMI result Body Mass Index 36.6 Const: General: cooperative HEENT: Head: Yes normal to inspection Face and sinus: Yes normal facial exam Mouth: Normal oral and palatal mucosa present Teeth and gingiva: dentition normal Eyes: General: appearance normal, both eyes and all related structures Pupils: Equal, round and reactive pupils present Resp: Effort & Inspection: normal respiratory effort Cardio: Rate: regular rate Rhythm: regular rhythm GI: Palpation (GI): Soft to palpation and nontender : General: Yes no CVA tenderness Back/Spine/Pelvis: Back: no CVA tenderness Skin: General skin exam: no rashes or lesions noted Neuro: General: moves all extremities Cranial nerves: Yes Equal, round and reactive pupils present Extrem: Other: left forefoot and great toe malodorous and not healing pulses diminished Psych: Appearance: grossly normal Results Labs CBC & Chem 7: 06/27/22 05:18 06/28/22 06:01 Microbiology Microbiology Results: Microbiology 06/26/22 17:27 Blood - Venous Blood Culture - Preliminary No growth after 48 hours. 06/26/22 15:25 Blood - Venous Blood Culture - Preliminary No growth after 48 hours. Assessment and Plan (1) Toe infection: Status: Acute (2) Sepsis: Status: Acute He has refractory osteomyelitis He has had anerobes,proteus and even MRSA Plan Would continue antibiotics while in hospital. Would give definitive surgical therapy removing as much of bone as possible in its entirely to improve chance of healing. Further terminal manager IV antibiotics not of use here.
[2022-06-29 19:22] VITALS: BP 112/56; PULSE 55; RESP 18; TEMP 36.2; O2SAT 98
[2022-06-29] MEDS: Enoxaparin Sodium 40 MG/0.4 ML SYRINGE SUBCUT (20:23)
[2022-06-29 21:17] LABS: Hematocrit 36.1 % (42.0-52.0); Hemoglobin 12.3 g/dl (14.0-18.0); Mean Corpuscular HGB Conc 34.1 g/dl (31.0-36.0); Mean Corpuscular Hemoglobin 32.6 pg (27.0-33.0); Mean Corpuscular Volume 95.8 fL (80.0-98.0); Mean Platelet Volume 9.2 fL (9.4-12.4); Platelet Count 443 X10*3/uL (160-400); Red Blood Count 3.77 X10*6/uL (4.60-5.80); Red Cell Distribution Width 13.1 % (11.0-16.0); White Blood Count 9.8 X10*3/uL (4.8-10.8)
[2022-06-29 21:31] LABS: C Reactive Protein 2.18 mg/dL (< or = 0.50)
--- NOTE | 2022-06-29 21:54 | HE.PHANOTE ---
vancomycin addendum: Trough came back at 13, predicted AUC of 504, keep dose and will recheck level after another 2 doses
[2022-06-29] MEDS: vancomycin HCL 1,500 MG in 0.9 % Sodium Chloride 500 ML 333.33 MG IV (23:18)
[2022-06-30] VITALS: BP 126/59; PULSE 57; RESP 14; TEMP 36.1; O2SAT 97
[2022-06-30] MEDS: Clindamycin Phosphate/D5W 900 MG/50 ML PIGGYBACK 50 MG IV ×3 (00:52→17:05)
[2022-06-30] MEDS: Piperacillin Sodium/Tazobactam 4.5 GM in 0.9 % Sodium Chloride 100 ML IV ×4 (00:52→19:41)
[2022-06-30 07:20] LABS: Creatinine Clr Calc Pharmacy 65.7; Estimated Glomerular Filt Rate 52
--- NOTE | 2022-06-30 07:42 | HE.PHANOTE ---
KENIA GRIFFITH CONTINUE CURRENT DOSE, NEXT TROUGH DUE 07/01 @1999 BEATA
[2022-06-30 07:51] VITALS: BP 108/63; PULSE 61; RESP 16; TEMP 35.7; O2SAT 96
--- NOTE | 2022-06-30 07:58 | PM.PNGS ---
Subjective Subjective Date of Service: 06/30/22 Interval history: Overall feels improved but now wishes to proceed with the left greaat toe amputation. He reports his is being placed on hospice after a prolonged history with cancer. He needs to be home to help her. Physical Exam Vital Signs: Vital Signs: Last Vital Signs Temp 96.3 F L 06/30/22 07:51 Pulse 61 06/30/22 07:51 Resp 16 06/30/22 07:51 BP 108/63 06/30/22 07:51 Pulse Ox 96 06/30/22 07:51 O2 Del Method 06/30/22 07:51 BMI result Body Mass Index 36.6 Const: General: healthy appearing, comfortable and no acute distress Nutritional Appearance: well nourished Orientation/consciousness: patient oriented x3 Resp: Effort & Inspection: normal respiratory effort Auscultation: clear to auscultation bilaterally Skin: General skin exam: no rashes or lesions noted Neuro: General: patient oriented x3 Extrem: Other: Serous discharge noted from the distal tip and ulcer in the webspace between the 1st and 2nd toes. No area purulent discharge noted from the site. Minimal erythema noted. Objective Data Active Medications Acetaminophen (Acetaminophen 325 Mg Tablet) 650 mg PO Q6H PRN PRN Reason: Pain, Mild (Pain Scale 1-3) Allopurinol (Allopurinol 100 Mg Tablet) 100 mg PO DAILY [facility] Last Admin: 06/29/22 07:47 Dose: 100 mg Documented By: ZAKIYA Enoxaparin Sodium (Enoxaparin Sodium 40 Mg/0.4 Ml Syringe) 40 mg SUBCUT Q24H [facility] Last Admin: 06/29/22 20:23 Dose: 40 mg Documented By: OLVIN Hydrochlorothiazide (Hydrochlorothiazide 12.5 Mg Tablet) 12.5 mg PO DAILY [facility]; Protocol Last Admin: 06/29/22 07:47 Dose: 12.5 mg Documented By: ZAKIYA Piperacillin Sod/Tazobactam (Sod 4.5 gm/ Sodium Chloride) 100 mls @ 200 mls/hr IV Q6H [facility] Last Infusion: 06/30/22 01:26 Dose: 0 mls/hr Documented By: OLVIN Clindamycin Phosphate (Cleocin) 900 mg in 50 mls @ 50 mls/hr IV Q8H [facility] Last Infusion: 06/30/22 02:41 Dose: 0 mls/hr Documented By: OLVIN Vancomycin HCl 1,500 mg/ (Sodium Chloride) 500 mls @ 333.333 mls/hr IV Q24H [facility] Last Infusion: 06/30/22 00:49 Dose: 0 mls/hr Documented By: OLVIN Lisinopril (Lisinopril 40 Mg Tablet) 40 mg PO DAILY [facility]; Protocol Last Admin: 06/29/22 07:47 Dose: 40 mg Documented By: ZAKIYA Melatonin (Melatonin 3 Mg Tablet) 6 mg PO BEDTIME PRN PRN Reason: Insomnia Ondansetron HCl (Ondansetron Hcl 4 Mg/2 Ml Vial) 4 mg IVPUSH Q8H PRN PRN Reason: Nausea and Vomiting Pharmacy Consult (Consult Rx Vancomycin Dosing) 1 each MISCELLANE DAILY PRN PRN Reason: Consult order Pharmacy Consult (Consult Rx Vancomycin Dosing) 1 each MISCELLANE DAILY PRN PRN Reason: Consult order Sodium Chloride (0.9 % Sodium Chloride Flush 3 Ml Syringe) 3 ml IVFLUSH QSHIFT [facility] Last Admin: 06/29/22 20:23 Dose: 3 ml Documented By: OLVIN Labs CBC & Chem 7: 06/29/22 21:00 06/30/22 05:51 Labs: Laboratory Results - last 24 hr 06/29/22 06/29/22 06/29/22 10:59 21:00 21:00 MCV 95.8 MCH 32.6 MCHC 34.1 RDW 13.1 Plt Count 443 H MPV 9.2 L Absolute Nucleated RBC 0.000 Nucleated RBC % (auto) 0.0 Estim Creat Clear Calc Estimated GFR POC Glucose 143 H C-Reactive Protein Vancomycin Trough 13.0 06/29/22 06/30/22 21:00 05:51 MCV MCH MCHC RDW Plt Count MPV Absolute Nucleated RBC Nucleated RBC % (auto) Estim Creat Clear Calc 65.7 Estimated GFR 52 POC Glucose C-Reactive Protein 2.18 H Vancomycin Trough Procedures Date of Service Date of Service: 06/30/22 Progress Note: A&P Assessment and plan (1) Acute osteomyelitis of toe of left foot: Status: Acute Plan Patient has requested amputation of the left great toe and after a review of the procedure, alternatives and risks, he consents to the surgery. He will be added on to the OR schedule for tomorrow. He understands and agrees with the plan. Time Spent With Patient Time: Total time spent is greater than 50% in coordination of care (as documented) at patient's floor/unit and/or counseling patient: Quality Stroke Does the patient have a stroke diagnosis?: No VTE Prior VTE?: No VTE Risk Level:: Medical - moderate - high VTE Device Contraindication: Treatment Not Indicated VTE Drug Contraindication: N/A - Med Ordered
--- NOTE | 2022-06-30 08:12 | P.CDIC_ITS ---
CDI Concurrent Query Documentation Clarification: PHYSICIAN'S DOCUMENTATION REQUEST Date of Query: 06/30/22811 Patient Name: Jorge Guardado Admit Date: 06/26/22 Dear Doctor, A review of the medical record indicates additional documentation may be needed. Please review below and update the documentation accordingly. Clinical Indicators: Documentation on progress note dated [ ] included the diagnosis of sepsis. Treating, POA, Resolved, Rule out etc. - Consistency and clarity of medical diagnosis: Risk Factors/Clinical Indicators/Treatments ED 06/27 - Clinical impression - Sepsis Surgery PN 06/27 - Patient does not have sepsis. ID consult note 06/29 - Assessment/plan: Sepsis IV Piperacillin, Clindamycin, Vancomycin, IV fluids. Sepsis Systemic manifestations of infection, with 2 or more SIRS criteria which include: * Fever > 100.4?F or hypothermia < 96.8?F * Leukocytosis ? WBC > 12,000 or leukopenia, WBC < 4,000, or > 10% bands * Tachycardia- > 90 beats/minute * Tachypnea- RR > 20 breaths/minute or PaCO2 < 32mmHg Source: Merck Manual 2013 Documentation should include the known or suspected organism, and the underlying infection, such as UTI or pneumonia Based on the above information and the recognized standard for sepsis, could you please clarify in the Progress Notes if this diagnoses is still accurate and reflective of the patient's condition to ensure quality of the medical record. * Sepsis is/was present and is a clinical diagnosis based on (please include this additional support in the medical record) * After study (the condition) has been ruled out * Other (please specify) * Unable to determine Use of terms such as suspected, likely, concern for, or probable (associated with a specific diagnosis that is being evaluated, monitored, or treated as if it exists) are acceptable and can be coded in the inpatient setting, when documented at the time of discharge. Thank you, Yasmin Hudson [facility], CDIS Extension: [phone] Please use your independent medical judgment in providing your response. THIS QUERY IS PART OF THE PERMANENT MEDICAL RECORD Provider Response: Other Other Diagnosis: no SIRS criteria
[2022-06-30] MEDS: allopurinoL 100 MG TABLET PO (08:41)
[2022-06-30] MEDS: lisinopriL 40 MG TABLET PO (08:41)
[2022-06-30] MEDS: hydroCHLOROthiazide 12.5 MG TABLET PO (08:41)
[2022-06-30] MEDS: 0.9 % Sodium Chloride Flush 3 ML SYRINGE IVFLUSH ×2 (08:46→17:05)
--- NOTE | 2022-06-30 10:00 | MHC.CM.PN ---
Addendum entered by Sofie Duque RN 06/30/22 15:07: [facility] IS WILLING TO OFFER, THEY ARE PROVIDING HOSPICE SERVICES TO PATIENT'S PATIENT AWARE Original Note: REFERRAL TO [facility] PER PREVIOUS CASE MANAGEMENT NOTE INDICATING THIS IS CHOICE FOR [facility]. PATIENT AGREEABLE TO AMPUTATION. CASE MANAGEMENT FOLLOWING
[2022-06-30 12:00] VITALS: BP 125/58; PULSE 60; RESP 20; TEMP 37; O2SAT 98
--- NOTE | 2022-06-30 12:01 | HO.PM.IMPN ---
Subjective Subjective Date of Service: 06/30/22 Interval History: decided to get amputation; planned for OR tomorrow no fever/chills Review of Systems Review of Systems: Yes all other systems are reviewed and are negative Physical Exam Vital Signs: Vital Signs: Last Vital Signs Temp 96.3 F L 06/30/22 07:51 Pulse 61 06/30/22 07:51 Resp 16 06/30/22 07:51 BP 108/63 06/30/22 07:51 Pulse Ox 96 06/30/22 07:51 O2 Del Method 06/30/22 07:51 BMI result Body Mass Index 36.6 Gen: in no acute distress HEENT: sclera anicteric, moist mucus membranes Neck: supple Lungs: clear to auscultation bilaterally Heart: regular rate and rhythm, no murmurs Abd: soft, non-tender, non-distended Ext: no edema Skin: warm/well-perfused, L great toe swollen and erythematous with large draining wound Neuro: alert and oriented x3, no focal findings Psych: appropriate affect Objective Data Active Medications Acetaminophen (Acetaminophen 325 Mg Tablet) 650 mg PO Q6H PRN PRN Reason: Pain, Mild (Pain Scale 1-3) Allopurinol (Allopurinol 100 Mg Tablet) 100 mg PO DAILY [facility] Last Admin: 06/30/22 08:41 Dose: 100 mg Documented By: ZOEY Enoxaparin Sodium (Enoxaparin Sodium 40 Mg/0.4 Ml Syringe) 40 mg SUBCUT Q24H [facility] Last Admin: 06/29/22 20:23 Dose: 40 mg Documented By: OLVIN Hydrochlorothiazide (Hydrochlorothiazide 12.5 Mg Tablet) 12.5 mg PO DAILY [facility]; Protocol Last Admin: 06/30/22 08:41 Dose: 12.5 mg Documented By: ZOEY Piperacillin Sod/Tazobactam (Sod 4.5 gm/ Sodium Chloride) 100 mls @ 200 mls/hr IV Q6H [facility] Last Infusion: 06/30/22 09:51 Dose: 0 mls/hr Documented By: ZOEY Clindamycin Phosphate (Cleocin) 900 mg in 50 mls @ 50 mls/hr IV Q8H [facility] Last Infusion: 06/30/22 11:47 Dose: 0 mls/hr Documented By: ZOEY Vancomycin HCl 1,500 mg/ (Sodium Chloride) 500 mls @ 333.333 mls/hr IV Q24H [facility] Last Infusion: 06/30/22 00:49 Dose: 0 mls/hr Documented By: OLVIN Lisinopril (Lisinopril 40 Mg Tablet) 40 mg PO DAILY [facility]; Protocol Last Admin: 06/30/22 08:41 Dose: 40 mg Documented By: ZOEY Melatonin (Melatonin 3 Mg Tablet) 6 mg PO BEDTIME PRN PRN Reason: Insomnia Ondansetron HCl (Ondansetron Hcl 4 Mg/2 Ml Vial) 4 mg IVPUSH Q8H PRN PRN Reason: Nausea and Vomiting Pharmacy Consult (Consult Rx Vancomycin Dosing) 1 each MISCELLANE DAILY PRN PRN Reason: Consult order Pharmacy Consult (Consult Rx Vancomycin Dosing) 1 each MISCELLANE DAILY PRN PRN Reason: Consult order Sodium Chloride (0.9 % Sodium Chloride Flush 3 Ml Syringe) 3 ml IVFLUSH QSHIFT [facility] Last Admin: 06/30/22 08:46 Dose: 3 ml Documented By: ZOEY Labs CBC & Chem 7: 06/29/22 21:00 06/30/22 05:51 Labs: Laboratory Results - last 24 hr 06/29/22 06/29/22 06/29/22 21:00 21:00 21:00 MCV 95.8 MCH 32.6 MCHC 34.1 RDW 13.1 Plt Count 443 H MPV 9.2 L Absolute Nucleated RBC 0.000 Nucleated RBC % (auto) 0.0 Estim Creat Clear Calc Estimated GFR C-Reactive Protein 2.18 H Vancomycin Trough 13.0 06/30/22 05:51 MCV MCH MCHC RDW Plt Count MPV Absolute Nucleated RBC Nucleated RBC % (auto) Estim Creat Clear Calc 65.7 Estimated GFR 52 C-Reactive Protein Vancomycin Trough Assessment and Plan (1) Acute osteomyelitis of toe of left foot: Status: Acute (2) HTN (hypertension): Status: Acute (3) Gout: Status: Acute Plan d#5 67yo F with HTN, HLD, gout admitted with non-healing L great toe wound with osteomyelitis despite 6 wk of IV ABX and operative debridement # L great toe ulcer with cellulitis and osteomyelitis - d#5 IV vanco/pip-andrew/clinda, not bacteremic, ID consulted - Gen Surg consulted, plan amputation of L great toe tomorrow # HTN - continue HCTZ + lisinopril # gout - continue allopurinol # VTE ppx: LMWH In my clinical judgment, the patient requires continued inpatient hospitalization for the following reasons: IV ABX, operative intervention Quality Stroke Does the patient have a stroke diagnosis?: No VTE Prior VTE?: No VTE Risk Level:: Medical - moderate - high VTE Device Contraindication: Treatment Not Indicated VTE Drug Contraindication: N/A - Med Ordered
[2022-06-30 16:00] VITALS: BP 142/65; PULSE 50; RESP 18; TEMP 36.5; O2SAT 100
[2022-06-30] MEDS: Enoxaparin Sodium 40 MG/0.4 ML SYRINGE SUBCUT (19:41)
[2022-06-30 20:00] VITALS: BP 120/58; PULSE 55; RESP 18; TEMP 36.3; O2SAT 99
[2022-07-01] VITALS (15 sets, daily range): BP systolic 97–144; BP diastolic 44–73; PULSE 52–78; RESP 14–18; TEMP 36–36.7; O2SAT 96–100
[2022-07-01] MEDS: vancomycin HCL 1,500 MG in 0.9 % Sodium Chloride 500 ML 333.33 MG IV ×2 (00:20→23:12)
[2022-07-01] MEDS: 0.9 % Sodium Chloride Flush 3 ML SYRINGE IVFLUSH ×4 (00:21→23:12)
[2022-07-01] MEDS: Clindamycin Phosphate/D5W 900 MG/50 ML PIGGYBACK 50 MG IV ×3 (00:23→18:05)
[2022-07-01] MEDS: Piperacillin Sodium/Tazobactam 4.5 GM in 0.9 % Sodium Chloride 100 ML IV ×3 (00:24→20:03)
[2022-07-01 09:01] LABS: Creatinine Clr Calc Pharmacy 68.3; Estimated Glomerular Filt Rate 55
[2022-07-01] MEDS: hydroCHLOROthiazide 12.5 MG TABLET PO (09:38)
[2022-07-01] MEDS: lisinopriL 40 MG TABLET PO (09:38)
[2022-07-01] MEDS: allopurinoL 100 MG TABLET PO (09:38)
--- NOTE | 2022-07-01 11:37 | MHC.SHP ---
Pre-Procedural Eval Section A Date of Service: 07/01/22 The patient is an INPATIENT: Yes Changes since office visit: Yes Patient answered all questions; No Cold of Flu in the past 2 weeks, No New Medical Problems and No Changes in Medication Section B Chief Complaint: L foot wound Allergies: Allergies Allergy/AdvReac Type Severity Reaction Status Date / Time No Known Allergies Allergy Verified 06/15/22 10:31 [No Known Allergies*] Plan Diagnosis/Plan: Unchanged I have reviewed the history and physical and performed a pertinent physical examination on my patient. No changes have occurred unless specified.
--- NOTE | 2022-07-01 12:22 | HO.PM.IMPN ---
Subjective Subjective Date of Service: 07/01/22 Interval History: NPO for OR today Pain controlled No fever Review of Systems Review of Systems: Yes all other systems are reviewed and are negative Physical Exam Vital Signs: Vital Signs: Last Vital Signs Temp 97.4 F 07/01/22 11:47 Pulse 58 07/01/22 11:47 Resp 16 07/01/22 11:47 BP 134/60 07/01/22 11:47 Pulse Ox 98 07/01/22 11:47 O2 Del Method 07/01/22 11:47 BMI result Body Mass Index 36.6 Gen: in no acute distress HEENT: sclera anicteric, moist mucus membranes Neck: supple Lungs: clear to auscultation bilaterally Heart: regular rate and rhythm, no murmurs Abd: soft, non-tender, non-distended Ext: no edema Skin: warm/well-perfused, L great toe swollen and erythematous with large draining wound Neuro: alert and oriented x3, no focal findings Psych: appropriate affect Objective Data Active Medications Acetaminophen (Acetaminophen 325 Mg Tablet) 650 mg PO Q6H PRN PRN Reason: Pain, Mild (Pain Scale 1-3) Allopurinol (Allopurinol 100 Mg Tablet) 100 mg PO DAILY [facility] Last Admin: 07/01/22 09:38 Dose: 100 mg Documented By: MESERET Enoxaparin Sodium (Enoxaparin Sodium 40 Mg/0.4 Ml Syringe) 40 mg SUBCUT Q24H [facility] Last Admin: 06/30/22 19:41 Dose: 40 mg Documented By: OLVIN Hydrochlorothiazide (Hydrochlorothiazide 12.5 Mg Tablet) 12.5 mg PO DAILY [facility]; Protocol Last Admin: 07/01/22 09:38 Dose: 12.5 mg Documented By: MESERET Piperacillin Sod/Tazobactam (Sod 4.5 gm/ Sodium Chloride) 100 mls @ 200 mls/hr IV Q6H [facility] Last Infusion: 07/01/22 10:25 Dose: 0 mls/hr Documented By: MESERET Clindamycin Phosphate (Cleocin) 900 mg in 50 mls @ 50 mls/hr IV Q8H [facility] Last Infusion: 07/01/22 11:38 Dose: 0 mls/hr Documented By: JAM Vancomycin HCl 1,500 mg/ (Sodium Chloride) 500 mls @ 333.333 mls/hr IV Q24H [facility] Last Infusion: 07/01/22 01:51 Dose: 0 mls/hr Documented By: OLVIN Lisinopril (Lisinopril 40 Mg Tablet) 40 mg PO DAILY [facility]; Protocol Last Admin: 07/01/22 09:38 Dose: 40 mg Documented By: MESERET Melatonin (Melatonin 3 Mg Tablet) 6 mg PO BEDTIME PRN PRN Reason: Insomnia Ondansetron HCl (Ondansetron Hcl 4 Mg/2 Ml Vial) 4 mg IVPUSH Q8H PRN PRN Reason: Nausea and Vomiting Pharmacy Consult (Consult Rx Vancomycin Dosing) 1 each MISCELLANE DAILY PRN PRN Reason: Consult order Pharmacy Consult (Consult Rx Vancomycin Dosing) 1 each MISCELLANE DAILY PRN PRN Reason: Consult order Sodium Chloride (0.9 % Sodium Chloride Flush 3 Ml Syringe) 3 ml IVFLUSH QSHIFT [facility] Last Admin: 07/01/22 09:39 Dose: 3 ml Documented By: MESERET Labs CBC & Chem 7: 06/29/22 21:00 07/01/22 08:30 Labs: Laboratory Results - last 24 hr 07/01/22 08:30 Estim Creat Clear Calc 68.3 Estimated GFR 55 Assessment and Plan (1) Acute osteomyelitis of toe of left foot: Status: Acute (2) HTN (hypertension): Status: Acute (3) Gout: Status: Acute Plan d#6 67yo F with HTN, HLD, gout admitted with non-healing L great toe wound with osteomyelitis despite 6 wk of IV ABX and operative debridement # L great toe ulcer with cellulitis and osteomyelitis - d#6 IV vanco/pip-andrew/clinda, not bacteremic, ID consulted - Gen Surg consulted, plan amputation of L great toe today for definitive source control # HTN - continue HCTZ + lisinopril # gout - continue allopurinol # VTE ppx: LMWH In my clinical judgment, the patient requires continued inpatient hospitalization for the following reasons: IV ABX, operative intervention Quality Stroke Does the patient have a stroke diagnosis?: No VTE Prior VTE?: No VTE Risk Level:: Medical - moderate - high VTE Device Contraindication: Treatment Not Indicated VTE Drug Contraindication: N/A - Med Ordered
--- NOTE | 2022-07-01 12:59 | HO.ANESPROP2 ---
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) KHADIJAH (acute kidney injury) (Acute) Toe infection (Acute) Gout (Acute) Paronychia of great toe (Acute) Elevated TSH (Acute) Obesity (Acute) Screening PSA (prostate specific antigen) (Acute) HTN (hypertension) (Acute) Past Medical History Medical History Elevated TSH Gout HTN (hypertension) Obesity Paronychia of great toe Screening PSA (prostate specific antigen) Varicose veins of both lower extremities Family History Family History Father HTN (hypertension) Mother Parkinsons disease Family history of problems with anesthesia: No Surgical History Surgical History (Updated 07/01/22 @ 11:47 by Sandra Fish RN) Hx of colonoscopy Hx of hand surgery Hx of vascular surgery Status post debridement (06/16/22) History of Problems with Anesthesia: No Social History Social History Household Members: Spouse and Children Housing: House Are you a primary health care law specialist to a significant other at home: No Do you presently have visiting nurse or other home services: No Alcohol intake: current Alcohol intake frequency: a few times a week Patient Tobacco Use Status: Never used Tobacco Use of substances other than those prescribed or required for medical reasons: No Currently Displaying Signs/Symptoms of Drug Intoxication Withdrawal: No Have you been hit, kicked, punched, or otherwise hurt by someone within the past year? If so, by whom?: No Do you feel safe in your current relationship?: Yes Is there a partner from a previous relationship who is making you feel unsafe now?: No Are you made to feel afraid or neglected: No Are you DNR?: No Advance Directives: Yes Advance Directives on File: Yes Advance Directives Date on File: 04/09/22 Do you have thoughts of harming others: None Do you have a plan to hurt others: No Plan Recently lost weight without trying: Yes How much weight loss: 2-13 pounds Eating poorly because of decreased appetite: No Nutrition screen score: 3 Nutrition Risks: No Nutritional Risk Poor oral hygiene: No service: No Current occupational status: retired Meds Allergies Allergy/AdvReac Type Severity Reaction Status Date / Time No Known Allergies Allergy Verified 06/15/22 10:31 [No Known Allergies*] Active Medications: Current Medications Acetaminophen (Acetaminophen 325 Mg Tablet) 650 mg PO Q6H PRN PRN Reason: Pain, Mild (Pain Scale 1-3) Allopurinol (Allopurinol 100 Mg Tablet) 100 mg PO DAILY [facility] Last Admin: 07/01/22 09:38 Dose: 100 mg Enoxaparin Sodium (Enoxaparin Sodium 40 Mg/0.4 Ml Syringe) 40 mg SUBCUT Q24H [facility] Last Admin: 06/30/22 19:41 Dose: 40 mg Hydrochlorothiazide (Hydrochlorothiazide 12.5 Mg Tablet) 12.5 mg PO DAILY [facility]; Protocol Last Admin: 07/01/22 09:38 Dose: 12.5 mg Piperacillin Sod/Tazobactam (Sod 4.5 gm/ Sodium Chloride) 100 mls @ 200 mls/hr IV Q6H [facility] Last Infusion: 07/01/22 10:25 Dose: Infused Clindamycin Phosphate (Cleocin) 900 mg in 50 mls @ 50 mls/hr IV Q8H [facility] Last Infusion: 07/01/22 11:38 Dose: Infused Vancomycin HCl 1,500 mg/ (Sodium Chloride) 500 mls @ 333.333 mls/hr IV Q24H [facility] Last Infusion: 07/01/22 01:51 Dose: Infused Cefazolin Sodium/Dextrose (Ancef) 2 gm in 50 mls @ 100 mls/hr IV PREOP ONE Stop: 07/01/22 13:10 Lisinopril (Lisinopril 40 Mg Tablet) 40 mg PO DAILY [facility]; Protocol Last Admin: 07/01/22 09:38 Dose: 40 mg Melatonin (Melatonin 3 Mg Tablet) 6 mg PO BEDTIME PRN PRN Reason: Insomnia Ondansetron HCl (Ondansetron Hcl 4 Mg/2 Ml Vial) 4 mg IVPUSH Q8H PRN PRN Reason: Nausea and Vomiting Pharmacy Consult (Consult Rx Vancomycin Dosing) 1 each MISCELLANE DAILY PRN PRN Reason: Consult order Pharmacy Consult (Consult Rx Vancomycin Dosing) 1 each MISCELLANE DAILY PRN PRN Reason: Consult order Sodium Chloride (0.9 % Sodium Chloride Flush 3 Ml Syringe) 3 ml IVFLUSH QSHIFT [facility] Last Admin: 07/01/22 09:39 Dose: 3 ml Home Medications Medication Instructions Recorded Confirmed Last Taken Type ibuprofen 200 mg tablet 200 mg PO Q6H PRN Fever 06/26/22 06/26/22 06/26/22 History Exam Exam Date and Time: July 01, 2022 1259 Height,Weight and Vital Signs: Height 5 ft 10 in Weight 115.666 kg Last Vital Signs Temp 97.4 F 07/01/22 11:47 Pulse 58 07/01/22 11:47 Resp 16 07/01/22 11:47 BP 134/60 07/01/22 11:47 Pulse Ox 98 07/01/22 11:47 O2 Del Method 07/01/22 11:47 Pertinent Lab Results Pertinent Lab Results: Laboratory Tests 06/26/22 06/26/22 06/26/22 13:13 13:13 13:13 WBC 11.9 H RBC 4.24 L Hgb 13.7 L Hct 40.3 L MCV 95.0 MCH 32.3 MCHC 34.0 RDW 13.1 Plt Count 460 H D MPV 9.1 L Immature Gran % (Auto) 0.6 H Neut % (Auto) 74.9 H Lymph % (Auto) 13.8 L [place] % (Auto) 7.3 Eos % (Auto) 2.6 Baso % (Auto) 0.8 Lymph # (Auto) 1.6 [place] # (Auto) 0.9 Eos # (Auto) 0.3 Baso # (Auto) 0.1 Abs Immat Gran (auto) 0.07 H Absolute Neuts (auto) 8.9 H Absolute Nucleated RBC 0.000 Nucleated RBC % (auto) 0.0 ESR 82 H Sodium 136 Potassium 4.9 Chloride 100 Carbon Dioxide 24 Anion Gap 17 BUN 27 H D Creatinine 1.41 H Estim Creat Clear Calc 62.9 Estimated GFR 50 POC Glucose Random Glucose 165 H D Estimat Average Glucose Hemoglobin A1c % Lactic Acid Calcium 9.8 Total Bilirubin 0.7 AST 16 D ALT 20 Alkaline Phosphatase 104 C-Reactive Protein 7.56 H Total Protein 8.2 H Albumin 3.7 Vancomycin Trough COVID-19 ([facility]) COVID-19 Clin Com 06/26/22 06/26/22 06/26/22 15:25 20:07 22:19 WBC RBC Hgb Hct MCV MCH MCHC RDW Plt Count MPV Immature Gran % (Auto) Neut % (Auto) Lymph % (Auto) [place] % (Auto) Eos % (Auto) Baso % (Auto) Lymph # (Auto) [place] # (Auto) Eos # (Auto) Baso # (Auto) Abs Immat Gran (auto) Absolute Neuts (auto) Absolute Nucleated RBC Nucleated RBC % (auto) ESR Sodium Potassium Chloride Carbon Dioxide Anion Gap BUN Creatinine Estim Creat Clear Calc Estimated GFR POC Glucose 98 Random Glucose Estimat Average Glucose Hemoglobin A1c % Lactic Acid 1.1 Calcium Total Bilirubin AST ALT Alkaline Phosphatase C-Reactive Protein Total Protein Albumin Vancomycin Trough COVID-19 ([facility]) Negative COVID-19 Clin Com See Note 06/27/22 06/27/22 06/27/22 00:03 05:18 05:18 WBC 9.0 RBC 3.85 L Hgb 12.3 L Hct 36.9 L MCV 95.8 MCH 31.9 MCHC 33.3 RDW 13.3 Plt Count 418 H MPV 9.6 Immature Gran % (Auto) 0.6 H Neut % (Auto) 60.9 Lymph % (Auto) 21.5 [place] % (Auto) 11.0 Eos % (Auto) 4.7 H Baso % (Auto) 1.3 Lymph # (Auto) 1.9 [place] # (Auto) 1.0 Eos # (Auto) 0.4 Baso # (Auto) 0.1 Abs Immat Gran (auto) 0.05 H Absolute Neuts (auto) 5.5 Absolute Nucleated RBC 0.000 Nucleated RBC % (auto) 0.0 ESR Sodium 138 Potassium 5.0 Chloride 107 Carbon Dioxide 23 Anion Gap 13 BUN 22 H Creatinine 1.22 Estim Creat Clear Calc 72.7 Estimated GFR 59 POC Glucose Random Glucose 109 Estimat Average Glucose 128 Hemoglobin A1c % 6.1 Lactic Acid Calcium 8.8 D Total Bilirubin AST ALT Alkaline Phosphatase C-Reactive Protein Total Protein Albumin Vancomycin Trough COVID-19 ([facility]) COVID-19 Clin Com 06/27/22 06/27/22 06/27/22 07:12 10:58 15:32 WBC RBC Hgb Hct MCV MCH MCHC RDW Plt Count MPV Immature Gran % (Auto) Neut % (Auto) Lymph % (Auto) [place] % (Auto) Eos % (Auto) Baso % (Auto) Lymph # (Auto) [place] # (Auto) Eos # (Auto) Baso # (Auto) Abs Immat Gran (auto) Absolute Neuts (auto) Absolute Nucleated RBC Nucleated RBC % (auto) ESR Sodium Potassium Chloride Carbon Dioxide Anion Gap BUN Creatinine Estim Creat Clear Calc Estimated GFR POC Glucose 143 H 129 H 103 Random Glucose Estimat Average Glucose Hemoglobin A1c % Lactic Acid Calcium Total Bilirubin AST ALT Alkaline Phosphatase C-Reactive Protein Total Protein Albumin Vancomycin Trough COVID-19 ([facility]) COVID-19 Clin Com 06/27/22 06/28/22 06/28/22 19:14 06:01 07:29 WBC RBC Hgb Hct MCV MCH MCHC RDW Plt Count MPV Immature Gran % (Auto) Neut % (Auto) Lymph % (Auto) [place] % (Auto) Eos % (Auto) Baso % (Auto) Lymph # (Auto) [place] # (Auto) Eos # (Auto) Baso # (Auto) Abs Immat Gran (auto) Absolute Neuts (auto) Absolute Nucleated RBC Nucleated RBC % (auto) ESR Sodium Potassium Chloride Carbon Dioxide Anion Gap BUN Creatinine 1.18 Estim Creat Clear Calc 75.2 Estimated GFR > 60 POC Glucose 137 H 106 Random Glucose Estimat Average Glucose Hemoglobin A1c % Lactic Acid Calcium Total Bilirubin AST ALT Alkaline Phosphatase C-Reactive Protein Total Protein Albumin Vancomycin Trough COVID-19 ([facility]) COVID-19 Clin Com 06/28/22 06/28/22 06/28/22 11:20 15:50 19:46 WBC RBC Hgb Hct MCV MCH MCHC RDW Plt Count MPV Immature Gran % (Auto) Neut % (Auto) Lymph % (Auto) [place] % (Auto) Eos % (Auto) Baso % (Auto) Lymph # (Auto) [place] # (Auto) Eos # (Auto) Baso # (Auto) Abs Immat Gran (auto) Absolute Neuts (auto) Absolute Nucleated RBC Nucleated RBC % (auto) ESR Sodium Potassium Chloride Carbon Dioxide Anion Gap BUN Creatinine Estim Creat Clear Calc Estimated GFR POC Glucose 149 H 107 149 H Random Glucose Estimat Average Glucose Hemoglobin A1c % Lactic Acid Calcium Total Bilirubin AST ALT Alkaline Phosphatase C-Reactive Protein Total Protein Albumin Vancomycin Trough COVID-19 ([facility]) COVID-19 Clin Com 06/29/22 06/29/22 06/29/22 07:15 10:59 21:00 WBC RBC Hgb Hct MCV MCH MCHC RDW Plt Count MPV Immature Gran % (Auto) Neut % (Auto) Lymph % (Auto) [place] % (Auto) Eos % (Auto) Baso % (Auto) Lymph # (Auto) [place] # (Auto) Eos # (Auto) Baso # (Auto) Abs Immat Gran (auto) Absolute Neuts (auto) Absolute Nucleated RBC Nucleated RBC % (auto) ESR Sodium Potassium Chloride Carbon Dioxide Anion Gap BUN Creatinine Estim Creat Clear Calc Estimated GFR POC Glucose 99 143 H Random Glucose Estimat Average Glucose Hemoglobin A1c % Lactic Acid Calcium Total Bilirubin AST ALT Alkaline Phosphatase C-Reactive Protein Total Protein Albumin Vancomycin Trough 13.0 COVID-19 ([facility]) COVID-19 OneID 06/29/22 06/29/22 06/30/22 21:00 21:00 05:51 WBC 9.8 RBC 3.77 L Hgb 12.3 L Hct 36.1 L MCV 95.8 MCH 32.6 MCHC 34.1 RDW 13.1 Plt Count 443 H MPV 9.2 L Immature Gran % (Auto) Neut % (Auto) Lymph % (Auto) [place] % (Auto) Eos % (Auto) Baso % (Auto) Lymph # (Auto) [place] # (Auto) Eos # (Auto) Baso # (Auto) Abs Immat Gran (auto) Absolute Neuts (auto) Absolute Nucleated RBC 0.000 Nucleated RBC % (auto) 0.0 ESR Sodium Potassium Chloride Carbon Dioxide Anion Gap BUN Creatinine 1.35 Estim Creat Clear Calc 65.7 Estimated GFR 52 POC Glucose Random Glucose Estimat Average Glucose Hemoglobin A1c % Lactic Acid Calcium Total Bilirubin AST ALT Alkaline Phosphatase C-Reactive Protein 2.18 H Total Protein Albumin Vancomycin Trough COVID-19 ([facility]) COVID-19 Clin Com 07/01/22 08:30 WBC RBC Hgb Hct MCV MCH MCHC RDW Plt Count MPV Immature Gran % (Auto) Neut % (Auto) Lymph % (Auto) [place] % (Auto) Eos % (Auto) Baso % (Auto) Lymph # (Auto) [place] # (Auto) Eos # (Auto) Baso # (Auto) Abs Immat Gran (auto) Absolute Neuts (auto) Absolute Nucleated RBC Nucleated RBC % (auto) ESR Sodium Potassium Chloride Carbon Dioxide Anion Gap BUN Creatinine 1.30 Estim Creat Clear Calc 68.3 Estimated GFR 55 POC Glucose Random Glucose Estimat Average Glucose Hemoglobin A1c % Lactic Acid Calcium Total Bilirubin AST ALT Alkaline Phosphatase C-Reactive Protein Total Protein Albumin Vancomycin Trough COVID-19 ([facility]) COVID-19 Clin Com Airway Mallampati Class: IV TM Dist: >3cm Neck ROM: Full Loose/Missing/Broken Teeth: Yes (Poor dentition overall , chipped upper front) Heart: S1,S2 Lungs: b/l breath sounds Assessment and Plan Assessment Anesthesia Assessment: Anesthesia Plan Discussed and Chart Reviewed Final Anesthetic Review Family History of Problems with Anesthesia: No History of Problems with Anesthesia: No NPO: Yes ASA Class: III Final Preanesthetic Review: Meds/Allgs Chart Reviewed, Consent Obtained/Reviewed and Anes Risks/Benef Reviewed Patient Risk: Intermediate Procedure Risk: Intermediate Anesthetic Plan Anesthetic Plan: GA Disposition: Standard PACU
--- NOTE | 2022-07-01 13:46 | MHC.CM.PN ---
Plan for d/c in 1-2 days. CM will continue to follow for and changes in d/c plan.
--- NOTE | 2022-07-01 15:03 | P.OP_ITS ---
Operative Note Operative Note Date of Service: 07/01/22 Narrative: Preoperative diagnosis: Osteomyelitis left great toe Postoperative diagnosis: Same Procedure: Amputation of left great toe Surgeon: Fausto Hadley MD Education Director: MICHELLE Malin Anesthesia: General LMA Indications for procedure: 67-year-old male patient presenting with a nonhealing wound of the left great toe following a traumatic injury from log landing on his great toe. He has had persistent infection and now appears to have osteomyelitis extending up into the proximal phalanx of the great toe. He presents today for amputation. Operative findings: Evidence of osteomyelitis involving the distal and proximal phalanx left great toe metatarsal head is normal with no evidence of osteomyelitis. Specimen: Left great toe Estimated blood loss: 25 mL Complications: None Procedure details: Patient was brought to the OR placed in a supine position. After administering general anesthesia the patient's left foot and leg were prepped with Betadine and draped in a sterile fashion. A surgical time-out was called the consent confirmed. Patient received preoperative antibiotics and Venodyne boots were in place. Local anesthesia consisting of 0.5% Sensorcaine was infiltrated as a digital block around the great toe left foot. Elliptical incision was then created with a scalpel around the left great toe to include the ulcer located in the webspace of the great toe. Incision was carried out through subcutaneous tissue down to proximal phalanx. Dissection was continued more proximal over the distal metatarsal head using electrocautery. Electrocautery was used to dissect the digit down to the MP joint. The proximal distal phalanx was removed at the MP joint and sent to pathology for further examination. Dissection was then continued up along the distal metatarsal head. Periosteum was elevated and a bone cutter used to resect the metatarsal head. A rongeur was used to smooth the edge. Hemostasis was then assured using electrocautery and free ties of 3-0 Polysorb. Wounds were then thoroughly irrigated with saline solution and suctioned dry. Deep fascia was reapproximated using interrupted 3-0 Polysorb sutures. Dermis was then reapproximated using interrupted 3-0 Polysorb sutures. Skin was closed using interrupted 3-0 nylon sutures. Sterile dressings consisting of fluff gauze, ABD pad, Kerlix and Paramjit bandage were then applied. The patient tolerated the procedure well. Sponge, instrument, and needle counts reported as correct. The patient was transferred to PACU in stable condition.
[2022-07-01] MEDS: Enoxaparin Sodium 40 MG/0.4 ML SYRINGE SUBCUT (20:03)
[2022-07-01 20:36] LABS: Vancomycin Trough 16.9 mcg/mL (10.0-20.0)
--- NOTE | 2022-07-01 20:43 | HE.PHANOTE ---
RE: vanco Trough on 07/01 came back at 16.9; will continue with 1500mg Q25H predicted AUC 578mg/L. Next level to be drawn 07/03
[2022-07-02] MEDS: Clindamycin Phosphate/D5W 900 MG/50 ML PIGGYBACK 50 MG IV ×2 (01:57→10:08)
[2022-07-02] MEDS: Piperacillin Sodium/Tazobactam 4.5 GM in 0.9 % Sodium Chloride 100 ML IV ×2 (02:37→08:34)
[2022-07-02 03:32] VITALS: BP 94/47; PULSE 56; RESP 18; TEMP 37.1; O2SAT 94
[2022-07-02 03:43] VITALS: BP 92/49
[2022-07-02 07:12] LABS: Hematocrit 32.6 % (42.0-52.0); Hemoglobin 11.2 g/dl (14.0-18.0); Mean Corpuscular HGB Conc 34.4 g/dl (31.0-36.0); Mean Corpuscular Hemoglobin 32.3 pg (27.0-33.0); Mean Corpuscular Volume 93.9 fL (80.0-98.0); Mean Platelet Volume 9.7 fL (9.4-12.4); Platelet Count 429 X10*3/uL (160-400); Red Blood Count 3.47 X10*6/uL (4.60-5.80); White Blood Count 13.1 X10*3/uL (4.8-10.8)
[2022-07-02 07:23] LABS: Anion Gap 13 (12-20); Blood Urea Nitrogen 12 mg/dL (9-16); Calcium 8.8 mg/dL (8.4-10.2); Carbon Dioxide 24 mmol/L (22-29); Chloride 107 mmol/L (96-108); Creatinine Clr Calc Pharmacy 71.6; Estimated Glomerular Filt Rate 58; Glucose Random 115 mg/dL (60-115); Potassium 4.3 mmol/L (3.3-5.1); Sodium 140 mmol/L (135-145)
[2022-07-02 07:59] VITALS: BP 103/63; PULSE 57; RESP 18; TEMP 36.3; O2SAT 100
--- NOTE | 2022-07-02 08:14 | PM.PNGS ---
Subjective Subjective Date of Service: 07/02/22 Interval history: Denies pain, reports mild throbbing in the left foot. Generally feels well and anxious to go home Physical Exam Vital Signs: Vital Signs: Last Vital Signs Temp 97.3 F 07/02/22 07:59 Pulse 57 07/02/22 07:59 Resp 18 07/02/22 07:59 BP 103/63 07/02/22 07:59 Pulse Ox 100 07/02/22 07:59 O2 Del Method 07/02/22 07:59 BMI result Body Mass Index 36.6 Const: General: no acute distress Resp: Effort & Inspection: normal respiratory effort Extrem: Other: dressings changed to left foot. Some bloody discharge noted on dressings otherwise incision clean without erythema or purulence discharge. Clean dressings applied including fluff gauze, ABD pad, Kerlix, and Paramjit bandage. Objective Data Active Medications Acetaminophen (Acetaminophen 325 Mg Tablet) 650 mg PO Q6H PRN PRN Reason: Pain, Mild (Pain Scale 1-3) Acetaminophen (Acetaminophen 325 Mg Tablet) 650 mg PO ONCE PRN PRN Reason: Pain, Mild (Pain Scale 1-3) Allopurinol (Allopurinol 100 Mg Tablet) 100 mg PO DAILY [facility] Last Admin: 07/01/22 09:38 Dose: 100 mg Documented By: MESERET Enoxaparin Sodium (Enoxaparin Sodium 40 Mg/0.4 Ml Syringe) 40 mg SUBCUT Q24H [facility] Last Admin: 07/01/22 20:03 Dose: 40 mg Documented By: MAK Fentanyl (Fentanyl Citrate/Pf 100 Mcg/2 Ml Vial) 25 mcg IVPUSH Q5M PRN; Protocol PRN Reason: Pain, Moderate (Pain Scale 4-6 Hydrochlorothiazide (Hydrochlorothiazide 12.5 Mg Tablet) 12.5 mg PO DAILY [facility]; Protocol Last Admin: 07/01/22 09:38 Dose: 12.5 mg Documented By: MESERET Piperacillin Sod/Tazobactam (Sod 4.5 gm/ Sodium Chloride) 100 mls @ 200 mls/hr IV Q6H [facility] Last Infusion: 07/02/22 03:11 Dose: 0 mls/hr Documented By: MAK Clindamycin Phosphate (Cleocin) 900 mg in 50 mls @ 50 mls/hr IV Q8H [facility] Last Infusion: 07/02/22 03:12 Dose: 0 mls/hr Documented By: MAK Vancomycin HCl 1,500 mg/ (Sodium Chloride) 500 mls @ 333.333 mls/hr IV Q24H [facility] Last Infusion: 07/02/22 00:44 Dose: 0 mls/hr Documented By: MAK Lisinopril (Lisinopril 40 Mg Tablet) 40 mg PO DAILY [facility]; Protocol Last Admin: 07/01/22 09:38 Dose: 40 mg Documented By: MESERET Melatonin (Melatonin 3 Mg Tablet) 6 mg PO BEDTIME PRN PRN Reason: Insomnia Morphine Sulfate (Morphine Sulfate 4 Mg/Ml Cartridge) 4 mg IVPUSH Q4H PRN; Protocol PRN Reason: Pain, Severe (Pain Scale 7-10) Ondansetron HCl (Ondansetron Hcl 4 Mg/2 Ml Vial) 4 mg IVPUSH Q8H PRN PRN Reason: Nausea and Vomiting Oxycodone HCl (Oxycodone Hcl Immed Release 5 Mg Tablet) 5 mg PO Q4H PRN PRN Reason: Pain, Moderate (Pain Scale 4-6 Oxycodone HCl (Oxycodone Hcl Immed Release 5 Mg Tablet) 10 mg PO Q4H PRN PRN Reason: Pain, Severe (Pain Scale 7-10) Pharmacy Consult (Consult Rx Vancomycin Dosing) 1 each MISCELLANE DAILY PRN PRN Reason: Consult order Pharmacy Consult (Consult Rx Vancomycin Dosing) 1 each MISCELLANE DAILY PRN PRN Reason: Consult order Sodium Chloride (0.9 % Sodium Chloride Flush 3 Ml Syringe) 3 ml IVFLUSH QSHIFT [facility] Last Admin: 07/01/22 23:12 Dose: 3 ml Documented By: MAK Labs CBC & Chem 7: 07/02/22 06:33 07/02/22 06:33 Labs: Laboratory Results - last 24 hr 07/01/22 07/01/22 07/02/22 08:30 20:02 06:33 MCV 93.9 MCH 32.3 MCHC 34.4 RDW 13.0 Plt Count 429 H MPV 9.7 Absolute Nucleated RBC 0.000 Nucleated RBC % (auto) 0.0 Anion Gap Estim Creat Clear Calc 68.3 Estimated GFR 55 Random Glucose Calcium Vancomycin Trough 16.9 07/02/22 06:33 MCV MCH MCHC RDW Plt Count MPV Absolute Nucleated RBC Nucleated RBC % (auto) Anion Gap 13 Estim Creat Clear Calc 71.6 Estimated GFR 58 Random Glucose 115 Calcium 8.8 Vancomycin Trough Microbiology Microbiology Results: Microbiology 06/26/22 17:27 Blood Culture - Final Blood - Venous No growth after 5 days. 06/26/22 15:25 Blood Culture - Final Blood - Venous No growth after 5 days. Procedures Date of Service Date of Service: 07/02/22 Progress Note: A&P Assessment and plan (1) Acute osteomyelitis of toe of left foot: Status: Acute Plan Pod 1 following amputation left great toe. Patient tolerated the procedure well. Wounds are clean and intact today. If he is discharged to home he will need daily dressing changes with fluff gauze, Kerlix and Paramjit bandage. I will need to see him in the office in 1-2 weeks. Agree with oral antibiotics on discharge. Time Spent With Patient Time: Total time spent is greater than 50% in coordination of care (as documented) at patient's floor/unit and/or counseling patient: Quality Stroke Does the patient have a stroke diagnosis?: No VTE Prior VTE?: No VTE Risk Level:: Medical - moderate - high VTE Device Contraindication: Treatment Not Indicated VTE Drug Contraindication: N/A - Med Ordered
[2022-07-02] MEDS: lisinopriL 40 MG TABLET PO (08:34)
[2022-07-02] MEDS: allopurinoL 100 MG TABLET PO (08:34)
[2022-07-02] MEDS: hydroCHLOROthiazide 12.5 MG TABLET PO (08:34)
[2022-07-02] MEDS: 0.9 % Sodium Chloride Flush 3 ML SYRINGE IVFLUSH (08:35)
--- NOTE | 2022-07-02 09:17 | HE.PHANOTE ---
Vancomycin Dosing Addendum Renal function is stable. Continue current regime 1500 mg Q24H. Next trough 07/03 @ 1999. Cassy Ramirez PharmD
[2022-07-02 11:32] VITALS: BP 107/59; PULSE 60; RESP 18; TEMP 36.1; O2SAT 100
--- NOTE | 2022-07-02 11:47 | PM.DS ---
DS: Providers Provider Date of Service: 07/02/22 Date of admission: 06/26/22 20:09 Date of discharge: 07/02/22 Primary care physician: MAURILIO Cortez Consults: 06/26/22 22:26 Consult to Infectious Diseases Routine Consulting Provider: Julissa Lim Reason for consultation: left great toe osteomyelitis Has provider been notified: No 06/26/22 22:27 Consult to General Surgery Routine Consulting Provider: Fausto Hadley Reason for consultation: ?wet gangrene of left toe Attending physician on discharge: Sloan Monreal Discharging clinician: Reba Pinzon DS: Diagnosis Discharge Diagnosis (1) Acute osteomyelitis of toe of left foot: Status: Acute DS: Summary Hospital Course Hospital Course: From H&P on day of admission This is a 67-year-old male with pertinent history of essential hypertension, mixed hyperlipidemia, gout who presents to the emergency department for evaluation of left big toe nonhealing wound.? Patient was admitted to [facility] on 04/08 and discharged on 04/10 with left great toe osteomyelitis.? Patient was discharged with 6 weeks of IV antibiotics which he finished in early May.? Patient states since finishing the antibiotic course, left great toe wound has been worsening with increasing swelling and pain.? Also has been having purulent discharge.? Patient has been following up with wound care who asked the patient to come to the ER due to worsening of the wound.? Patient denies fever, chills, nausea, vomiting, abdominal discomfort, dizziness, lightheadedness, chest discomfort, shortness of breath, palpitations, changes in urinary or bowel habits.? Patient states he has had this wound since March when a large tree trunk fell on his left great toe. In the emergency department, x-ray concerning for increasing bone destruction likely related to osteomyelitis.? Also noted air in soft tissue of great toe Left great toe ulcer with cellulitis and osteomyelitis Initially treated with IV antibiotics. blood cultures have remained negative. Gen Surg consulted, underwent amputation of Left great toe 07/01 for definitive source control. No penitentiary antibiotics indicated at this time. patient will be discharged with short course of Oral antibiotics. pain under control. Surgery recommends daily dressing changes with fluff gauze, Kerlix and Paramjit bandage. Follow-up in the office in 1-2 weeks. Plan for discharge home with VNA for daily dressing changes. Time Spent with Patient Time attestation: Total time spent providing and/or coordinating discharge services: Discharge coordination time: Greater than 30 minutes Quality: Safe Use of Opioids Does Pt have an Active Cancer Diagnosis on the Problem List?: No Quality: Stroke Does the patient have a stroke diagnosis?: No Physical Exam Vital Signs: Vital Signs: Last Vital Signs Temp 96.9 F 07/02/22 11:32 Pulse 60 07/02/22 11:32 Resp 18 07/02/22 11:32 BP 107/59 L 07/02/22 11:32 Pulse Ox 100 07/02/22 11:32 O2 Del Method 07/02/22 11:32 BMI result Body Mass Index 36.6 Const: General: cooperative, comfortable, no acute distress, alert and awake Nutritional Appearance: overweight Orientation/consciousness: patient oriented x3 Resp: Effort & Inspection: normal respiratory effort and able to speak in complete sentences Cardio: Rate: regular rate Heart sounds: S1 normal heart sound present and S2 normal heart sound present GI: Inspection: No distended Palpation (GI): Soft to palpation and nontender Skin: Other: left foot wrapped in c/d/i bandage Neuro: General: patient oriented x3 DS: Data Data Completed and Pending Completed studies during hospitalization [Text1]: Procedures Insertion of Infusion Device into Superior Vena Cava, Percutaneous Approach (04/08/22) Ultrasonography of Superior Vena Cava, Guidance (04/08/22) Pending studies at discharge: Pending at discharge 07/01/22 13:51 Surgical [PTH] Routine Labs on day of discharge: Laboratory Results - last 24 hr 07/01/22 07/02/22 07/02/22 20:02 06:33 06:33 WBC 13.1 H RBC 3.47 L Hgb 11.2 L Hct 32.6 L MCV 93.9 MCH 32.3 MCHC 34.4 RDW 13.0 Plt Count 429 H MPV 9.7 Absolute Nucleated RBC 0.000 Nucleated RBC % (auto) 0.0 Sodium 140 Potassium 4.3 Chloride 107 Carbon Dioxide 24 Anion Gap 13 BUN 12 Creatinine 1.24 Estim Creat Clear Calc 71.6 Estimated GFR 58 Random Glucose 115 Calcium 8.8 Vancomycin Trough 16.9 Discharge Plan Discharge Anticipated Discharge Date/Time: 07/02/22 11:37 Patient Disposition: Home Health Service Discharge Diagnosis: osteomyelitis Referrals: Aish[facility]arya [facility]OS [Outside] - 1 Week Fausto Pat FNP- [Primary Care Provider] - 1 Week Fausto Hadley MD [Physician] - 1 Week Discharge Medications: New amoxicillin-pot clavulanate 875-125 mg tablet 1 tab PO BID 5 Days Qty: 10 0RF oxycodone 5 mg tablet 5 mg PO Q8H PRN (Reason: pain (scale score 7-10)) Qty: 12 0RF Rx Instructions: Partial Fill upon patient request. Continued allopurinol 100 mg tablet 100 mg PO DAILY 90 Days Qty: 90 0RF hydrochlorothiazide 12.5 mg tablet 12.5 mg PO DAILY 30 Days Qty: 30 3RF lisinopril 40 mg tablet 40 mg PO DAILY Qty: 90 0RF ibuprofen 200 mg Tablet 200 mg PO Q6H PRN (Reason: Fever) Discontinued doxycycline hyclate 100 mg tablet 100 mg PO BID 30 Days Qty: 60 1RF Discharge Orders: Discharge Order (Routine); Ordered 07/02/22 Ordered By: Reba Pinozn Activity on Discharge: As tolerated Stand Alone Forms: Patient Portal Discharge page Care Plan Goals: resolution of infection, healing of wound Health Concerns: osteomyelitis of left great toe Plan of Treatment: Complete course of oral antibiotics call to schedule follow-up appointment with Dr. Hadley in the next 1-2 weeks VNA will assist with daily dressing changes call to schedule follow up with PCP would limit motrin use, can use tylenol or oxycodone for pain control Assessment: osteomyelitis s/p left great toe amputation Discharge Date/Time: 07/02/22 13:35
--- NOTE | 2022-07-02 11:56 | P.F2F_ITS ---
Service Date Service Date: 07/02/22 Encounter Date of encounter: 07/02/22 Reasons for Services Signs and symptoms assessed: needs group home for daily dressing changes with fluff gauze, kirlix and tuan wrap Reason for group home: wound care MD Overseeing Care: Fausto Pat Homebound: Leaving the home is medically contraindicated at this time without the asist of a device and/or another person due th the listed conditions above and below. Reason homebound: weakness related to hospital stay Certification: Based on the above findings, I certify that this patient is confined to the home and needs intermittent group home care, physical therapy and/or speech therapy, or continues to need occupational therapy. The patient is under my care, and I have initiated the establishment of the plan of care. The patient will be followed by a physician who will periodically review the plan of care.
--- NOTE | 2022-07-02 12:25 | MHC.CM.PN ---
PATIENT IS DC HOME TODAY WITH NEW [facility]. RN AWARE OF PLAN. IMM 07/01 PLACED IN MEDICAL RECORDS BIN ON UNIT
--- NOTE | 2022-07-02 13:55 | HO.POSTANES ---
Post Anesthesia Evaluation Post Anesthesia Evaluation Vital Signs: Vital Signs Temp Pulse Resp BP Pulse Ox O2 Del Method 07/02/22 11:32 96.9 F 60 18 107/59 L 100 Room Air 07/02/22 07:59 97.3 F 57 18 103/63 100 Room Air 07/02/22 03:43 92/49 L 07/02/22 03:32 98.7 F 56 18 94/47 L 94 Room Air Anesthesia: General LMA Mental Status: Awake Pain Control: Satisfactory Nausea/Vomiting: None Hydration: Adequate Anesthesia-Related Issues: No Anes. Related Issues
--- NOTE | 2022-07-02 18:49 | HO.POSTANES ---
Post Anesthesia Evaluation Post Anesthesia Evaluation Vital Signs: Vital Signs Temp Pulse Resp BP Pulse Ox O2 Del Method 07/02/22 11:32 96.9 F 60 18 107/59 L 100 Room Air 07/02/22 07:59 97.3 F 57 18 103/63 100 Room Air Anesthesia: General Mental Status: Awake Pain Control: Satisfactory Nausea/Vomiting: None Hydration: Adequate Anesthesia-Related Issues: No Anes. Related Issues
== END 2022-07-02 13:35 | disposition home health service (06) | DRG 504 ==
LOC: HO.ED 20:27 → HO.EDOVER 20:40 → HO.S3 21:18
PROVIDERS: Family Medicine; Hospitalist; Physician Assistant Medical; Surgery; Admitting Provider Student in an Organized Health Care Education/Training Program; Emergency Provider Student in an Organized Health Care Education/Training Program; PCP Nurse Practitioner Family; Visit Provider Physician Assistant Medical
PROC: 0Y6Q0Z0 Detachment at Left 1st Toe, Complete, Open Approach (ICD-10-PCS; principal; 2022-07-01 12:00)
DX: M86.172 Other acute osteomyelitis, left ankle and foot (principal); M84.478A Pathological fracture, left toe(s), initial encounter for fracture; N17.9 Acute kidney failure, unspecified; M10.9 Gout, unspecified; R73.03 Prediabetes; L03.032 Cellulitis of left toe; B96.4 Proteus (mirabilis) (morganii) as the cause of diseases classified elsewhere; L97.529 Non-pressure chronic ulcer of other part of left foot with unspecified severity; B95.62 Methicillin resistant Staphylococcus aureus infection as the cause of diseases classified elsewhere; B96.6 Bacteroides fragilis [B. fragilis] as the cause of diseases classified elsewhere; E78.2 Mixed hyperlipidemia; I10 Essential (primary) hypertension; D75.839 Thrombocytosis, unspecified; Z20.822 Contact with and (suspected) exposure to COVID-19; Z79.899 Other long term (current) drug therapy
CPT/HCPCS: 36415; 73620; 73718; 80048; 80053; 80202; 82565; 82947; 83036; 83605; 85025; 85027; 85652; 86140; 87040; 87635; 88305; 88311; 93923; 93925; 99285; J0690; J1100; J1650; J2250; J2405; J2543; J2795; J3010; J3370

== ENCOUNTER → 2022-07-07 14:13 | Outpatient (BNVA) | payer MEDICARE, SELFPAY | PROVIDERS: PCP Nurse Practitioner Family; Referring Provider Nurse Practitioner Family; Visit Provider Surgery | DX: Z48.01 Encounter for change or removal of surgical wound dressing (principal) | CPT/HCPCS: 99211 ==

== ENCOUNTER → 2022-07-16 14:41 | Outpatient (BNVA) | payer MEDICARE, SELFPAY | PROVIDERS: PCP Nurse Practitioner Family; Visit Provider Surgery | DX: Z89.412 Acquired absence of left great toe (principal); M86.172 Other acute osteomyelitis, left ankle and foot | CPT/HCPCS: 99212 ==

== ENCOUNTER 2022-07-24 09:28 | Outpatient (REF) | payer MEDICARE, SELFPAY ==
[2022-07-24 11:29] LABS: MANUAL DIFF FLAG NO
[2022-07-24 11:39] LABS: Appearance Urine Clear; Color Urine Yellow; Glucose Urine UA Negative (Negative); Leukocyte Esterase Urine Negative (Negative); Nitrite Urine Negative (Negative); Specific Gravity - Urine 1.015 (1.005-1.025); Urine Blood Negative (Negative); Urine Ketones Negative (Negative); Urine Protein Negative (Neg-Trace)
[2022-07-24 11:51] LABS: Basophils Absolute Auto 0.1 X10*3/uL (0.0-0.2); Eosinophils Absolute Auto 0.5 X10*3/uL (0.0-0.4); Eosinophils Percent Auto 6.5 % (0-4); Hematocrit 42.8 % (42.0-52.0); Hemoglobin 14.5 g/dl (14.0-18.0); Imm Gran Abs Auto 0.03 X10*3/uL (0.00-0.03); Imm Gran Pct Auto 0.4 % (0.0-0.4); Lymphocytes Absolute Auto 1.8 X10*3/uL (1.2-4.9); Mean Corpuscular HGB Conc 33.9 g/dl (31.0-36.0); Mean Corpuscular Volume 97.5 fL (80.0-98.0); Mean Platelet Volume 10.8 fL (9.4-12.4); Monocytes Absolute Auto 0.9 X10*3/uL (0.1-1.2); Monocytes Percent Auto 10.3 % (2-11); Neutrophils Absolute Auto 5.1 x10*3/uL (2.0-8.3); Neutrophils Percent Auto 60.8 % (45-73); Platelet Count 284 X10*3/uL (160-400); Red Blood Count 4.39 X10*6/uL (4.60-5.80); Red Cell Distribution Width 14.6 % (11.0-16.0); White Blood Count 8.3 X10*3/uL (4.8-10.8)
[2022-07-24 13:53] LABS: Alanine Aminotransferase 19 U/L (0-40); Albumin Level 3.9 g/dL (3.5-5.0); Alkaline Phosphatase 99 U/L (39-117); Anion Gap 12 (12-20); Aspartate Amino Transferase 21 U/L (5-37); Bilirubin Total 2.1 mg/dL (0.0-1.0); Blood Urea Nitrogen 15 mg/dL (9-16); Calcium 9.7 mg/dL (8.4-10.2); Carbon Dioxide 28 mmol/L (22-29); Chloride 101 mmol/L (96-108); Cholesterol 213 mg/dL; Estimated Glomerular Filt Rate > 60; Glucose Fasting 125 mg/dL (60-99); HDL Cholesterol 34 mg/dL; LDL Cholesterol Calculated 147 mg/dl; Potassium 4.7 mmol/L (3.3-5.1); Prostate Specific Antigen Scr 0.48 ng/mL (<0.05-4.0); Sodium 136 mmol/L (135-145); TSH reflex Free T4 4.34 uIU/mL (0.32-4.0); Total Protein 7.6 g/dL (6.5-8.0); Triglycerides 160 mg/dL
[2022-07-24 14:46] LABS: Free T4 (Free Thyroxine) 0.88 ng/dL (0.71-1.85)
== END 2022-07-24 09:29 | disposition home or self-care (01) ==
LOC: HO.HMGCLDS 09:28
PROVIDERS: PCP Nurse Practitioner Family; Visit Provider Nurse Practitioner Family
DX: M86.172 Other acute osteomyelitis, left ankle and foot (principal); I10 Essential (primary) hypertension; Z12.5 Encounter for screening for malignant neoplasm of prostate
CPT/HCPCS: 36415; 80053; 80061; 81003; 84153; 84439; 84443; 85025

== ENCOUNTER → 2022-07-30 10:28 | Outpatient (BNVA) | payer MEDICARE, SELFPAY | PROVIDERS: PCP Nurse Practitioner Family; Referring Provider Nurse Practitioner Family; Visit Provider Surgery | DX: Z47.81 Encounter for orthopedic aftercare following surgical amputation (principal); M86.172 Other acute osteomyelitis, left ankle and foot | CPT/HCPCS: 99212 ==

== ENCOUNTER → 2022-08-27 09:59 | Outpatient (BNVA) | payer MEDICARE, SELFPAY | PROVIDERS: PCP Nurse Practitioner Family; Referring Provider Nurse Practitioner Family; Visit Provider Surgery | DX: Z13.89 Encounter for screening for other disorder (principal) | CPT/HCPCS: 99212 ==

== ENCOUNTER → 2022-09-24 09:20 | Outpatient (BNVA) | payer MEDICARE, SELFPAY | PROVIDERS: PCP Nurse Practitioner Family; Referring Provider Nurse Practitioner Family; Visit Provider Surgery | DX: Z13.89 Encounter for screening for other disorder (principal) | CPT/HCPCS: 99212 ==

== ENCOUNTER 2022-10-24 21:58 | Emergency (ER) | payer MEDICARE, SELFPAY ==
[2022-10-24 22:06] VITALS: BP 120/50; BP 130/70; PULSE 75; PULSE 85; RESP 16; TEMP 36.6; O2SAT 95; O2SAT 96; BMI 35.1
--- NOTE | 2022-10-24 22:25 | ED_ITS ---
HPI - General Adult General Chief complaint: Extremity Injury, Lower Stated complaint: LAC TO LEFT FOOT,BLEEDING CONTROLLED Time Seen by Provider: 10/24/22 22:19 Source: patient, EMS and RN notes reviewed Mode of arrival: EMS Limitations: no limitations History of Present Illness HPI narrative: 67-year-old male past medical history significant for hyperlipidemia, hypertension presents for evaluation of a wound to his right foot. Patient reports that he had just gotten home from 0 approximately 1 mi walk. He reports he is taking his socks and boots off. He reports that he scratched the top of his right foot he believes the scratch a varicose veins that have had work done on in the past. This happened about 1-1/2 hours prior to arrival the patient ended up calling 911 because I just could not get it to stop bleeding. He has not any blood thinners he denies any other injuries Related Data Home Medications Medication Instructions Recorded Confirmed ibuprofen 200 mg tablet 200 mg PO Q6H PRN Fever 06/26/22 10/08/22 Previous Rx's Medication Instructions Recorded hydrochlorothiazide 12.5 mg tablet 12.5 mg PO DAILY 30 days #30 tabs 06/24/22 allopurinol 100 mg tablet 100 mg PO DAILY 90 days #90 tabs 09/29/22 lisinopril 40 mg tablet 40 mg PO DAILY #90 tabs 09/29/22 Allergies Allergy/AdvReac Type Severity Reaction Status Date / Time No Known Allergies Allergy Verified 10/08/22 15:23 [No Known Allergies*] Review of Systems Constitutional: Constitutional: Reports as per HPI, Denies chills, Denies fatigue and Denies fever(s) Integumentary/Breasts: Comments: bleeding wound to the top of the right foot Neurologic: Denies focal weakness Endocrine: Endocrine: Denies fatigue PMFSH Past Medical History Medical History Elevated TSH Gout HTN (hypertension) Obesity Paronychia of great toe Screening PSA (prostate specific antigen) Varicose veins of both lower extremities Surgical History History of amputation of left great toe (07/01/22) Hx of colonoscopy Hx of hand surgery Hx of vascular surgery Status post debridement (06/16/22) Family History Family History Father HTN (hypertension) Mother Parkinsons disease Social History Social History Household Members: Spouse and Children Housing: House Are you a primary child care centre manager to a significant other at home: No Do you presently have visiting nurse or other home services: No Alcohol intake: current Alcohol intake frequency: a few times a week Patient Tobacco Use Status: Never used Tobacco e-Cigarette/Vaping Use: Never Used Second Hand Smoke Exposure: No Advance Directives: Yes Advance Directives on File: Yes Advance Directives Date on File: 04/09/22 service: No Current occupational status: retired Cognitive needs: No Hearing needs: No Vision needs: No Physical Exam ED Vital Signs: Vital Signs - 24 hr 10/24/22 22:06 Temperature 97.9 F Pulse Rate 75 Respiratory Rate 16 Blood Pressure 120/50 L Pulse Oximetry 95 Oxygen Delivery Method Room Air BMI result Body Mass Index 35.1 Const General: healthy appearing, comfortable, no acute distress, alert and awake Nutritional Appearance: well nourished Orientation/consciousness: patient oriented x3 Neck Neck: Yes full ROM Resp Effort & Inspection: normal respiratory effort, able to speak in complete sentences, no audible wheezes and not labored Auscultation: clear to auscultation bilaterally Skin Other: patient has a very small, superficial approximately 0.5 cm semi lunar skin tear to the dorsum of the right midfoot. There is no active bleeding. No other wounds or lesions noted General skin exam: no rashes or lesions noted and elasticity normal Neuro General: patient oriented x3 Cognition (Neuro): normal cognition Extrem Other: Moving all extremities well without any obvious deformities Course Reevaluation(s) Reevaluation #1: patient's repeat blood pressure load at 101/59. Patient is not lightheaded or dizzy. Will repeat prior to discharge Time: 22:46 Reevaluation #2: patient again re-evaluated, his blood pressure is now 96/54. His map is 67. The patient denies any complaints at this time, he continues to have no further bleeding. He continues to deny any lightheadedness or dizziness. The patient has been ambulating without any symptoms either. The patient is for discharge at this time. he is requesting discharge as well Time: 23:05 Procedures Laceration Laceration 1: Site: lower extremity (foot) Side (If applicable): right Size (cm): 0.5 Description: linear Depth: simple, single layer Skin layer closed with: other (Dermabond adhesive) Medical Decision Making Medical Decision Making MDM Narrative: patient has a very small, superficial wound that is not actively bleeding. Given that EMS and the patient reports that there was a moderate amount of blood loss from the wound even though it isn't significant, we will close with Dermabond to keep it is healed. Again, there is no active bleeding. The patient has no other issues, is not currently anticoagulated. Vital signs are stable. Differential Diagnosis laceration Skin tear Puncture wound Abrasion Discharge Plan Discharge Clinical Impression: Laceration of foot Patient Disposition: Home, Self-Care Instructions: Laceration (ED) Additional Instructions: your wound was closed with Dermabond. This should dissolve on its own in about 1 week. Keep the area clean and dry for at [email or web address].st 24 hours. your blood pressure was somewhat low today return for any dizziness or lightheadedness that you may experience or if you start bleeding again. Prescriptions: No Action hydrochlorothiazide 12.5 mg tablet 12.5 mg PO DAILY 30 Days Qty: 30 3RF lisinopril 40 mg tablet 40 mg PO DAILY Qty: 90 0RF allopurinol 100 mg tablet 100 mg PO DAILY 90 Days Qty: 90 0RF ibuprofen 200 mg Tablet 200 mg PO Q6H PRN (Reason: Fever)
[2022-10-24 23:17] VITALS: BP 97/52; PULSE 67; RESP 18; TEMP 36.4; O2SAT 96
--- NOTE | 2022-10-24 23:31 | PC.NURSE ---
this rn at bedside while martha banks applied derma marr. dried blood removed from r foot by this rn
--- NOTE | 2022-10-24 23:31 | PC.NURSE ---
late entry-martha banks aware of low bp no new orders
== END 2022-10-24 23:32 | disposition home or self-care (01) ==
PROVIDERS: Emergency Provider Student in an Organized Health Care Education/Training Program; PCP Nurse Practitioner Family
DX: S91.311A Laceration without foreign body, right foot, initial encounter (principal); W45.8XXA Other foreign body or object entering through skin, initial encounter; Y93.89 Activity, other specified; Y92.019 Unspecified place in single-family (private) house as the place of occurrence of the external cause; Y99.9 Unspecified external cause status
CPT/HCPCS: 12001; 99283; 99284

== ENCOUNTER 2023-03-09 11:35 | Outpatient (AMB) | payer MEDICARE, SELFPAY ==
--- NOTE | 2023-03-09 12:10 | AM.OFFWIN_ITS ---
Intake Vital Signs 03/09/23 12:11 Height 5 ft 10 in BP 112/62 Blood Pressure Location Lt brachial Position Sitting Pulse 88 Pulse Source Pulse Oximeter Temp 95.7 F L Temp Source Temporal Artery Scan Pulse Oximetry (%) 98 Oxygen Delivery Method Room Air Intake Visit Reasons: EP Blister infected again? (lobby) Intake Note: Pt is here c/o infected blister on his left foot. Patient Tobacco Use Status: Never used Tobacco Allergies No Known Allergies [No Known Allergies*] Allergy (Verified 02/18/23 10:49) Do you need a note to return to daycare/school/sports/work: No HPI HPI Comments History of Present Illness Details 67-year-old male presents for evaluation for a wound to his left foot. States the wound is still draining, and appears to be infected, was on antibiotics for 10 days. He does have a history of osteomyelitis to left foot and had a right great toe amputation last April. He states that his foot is swollen, and warm to touch. It is a report fevers, chills, or weakness, but states that he does not feel well. [facility] Medical History Elevated TSH Gout HTN (hypertension) Obesity Paronychia of great toe Screening PSA (prostate specific antigen) Varicose veins of both lower extremities Surgical History History of amputation of left great toe (07/01/22) Hx of colonoscopy Hx of hand surgery Hx of vascular surgery Status post debridement (06/16/22) Family History Father HTN (hypertension) Mother Parkinsons disease Social History Household Members: Spouse and Children Housing: House Are you a primary home care assistant to a significant other at home: No Do you presently have visiting nurse or other home services: No Alcohol intake: current Alcohol intake frequency: a few times a week Patient Tobacco Use Status: Never used Tobacco e-Cigarette/Vaping Use: Never Used Second Hand Smoke Exposure: No Advance Directives Date on File: 04/09/22 service: No Current occupational status: retired Cognitive needs: No Hearing needs: No Vision needs: No Review of Systems Const Details: Constitutional: No Fever, No Chills Cardiovascular: No Chest Pain, No SOB Respiratory: No Cough, No Dyspnea Gastrointestinal: No Nausea, No Vomiting, No Diarrhea, No abdominal Pain Genitourinary: No Dysuria, No Hematuria Musculoskeletal: positive left foot pain, No Myalgias, No Joint Swelling Skin: Positive redness of left foot, positive open wound that is actively draining, No Skin lacerations, No rash Neuro: No Weakness, No Numbness, No Paresthesias, No Dizziness, No Headache All systems reviewed & are unremarkable except as noted in HPI and below Physical Exam Vital Signs: Last Vital Signs Temp 95.7 F L 03/09/23 12:11 Pulse 88 03/09/23 12:11 BP 112/62 03/09/23 12:11 Pulse Ox 98 03/09/23 12:11 Oxygen Delivery Method Room Air 03/09/23 12:11 Appearance: Alert. Oriented X3. No acute distress. Eyes: Pupils equal, round and reactive to light. ENT: Pharynx normal. Neck: Normal inspection. Neck supple. CVS: Normal heart rate and rhythm. Pulses normal. Respiratory: No respiratory distress. Breath sounds normal. Skin: Skin warm and dry. Normal skin color. Normal skin turgor. Extremities: Open wound to 5th metatarsal joint lateral aspect, macerated opening, purulence and malodorous drainage, cellulitis to the entire foot radiating up to the mid lower calf. Left great toe amputation, onychomycosis to all digits on the left side. Brisk capillary refill, normal sensation. Neuro: No motor deficit. No sensory deficit. Cranial nerves 2-12 intact Assessment & Plan Assessment & Plan (1) Cellulitis of left foot: Code(s): L03.116 - Cellulitis of left lower limb (2) Wound infection: Code(s): T14.8XXA - Other injury of unspecified body region, initial encounter; L08.9 - Local infection of the skin and subcutaneous tissue, unspecified Plan 67-year-old male with past medical history of hypertension, hyperlipidemia, osteomyelitis of the left foot with left great toe amputation, and is prediabetic. He presents for evaluation for a worsening left foot infection. He had an ulceration and blister to the left lateral 5th metacarpal joint and was treated with 10 days of cefuroxime. He is reporting malodorous purulent drainage from the site, has an inflamed reddened foot extending up to the calf and has worsening pain hi does not report any measured fevers, but states that he does not feel well. Wound to the lateral metatarsal joint macerated, open, with purulent malodorous drainage. Cellulitis throughout the foot and up to the mid lower calf. Patient's temperature is 95.7 degrees with a heart rate of 88, 98% on room air. I do have significant concerns about cellulitis and wound infection that did not respond to oral antibiotics. At this point I do suspect osteomyelitis, versus sepsis, verses cellulitis and feel that this patient should be evaluated in the emergency department and rip choirs IV antibiotics. Patient does agree with this assessment, and would like to present to [facility]. He had his prior surgery at [facility] with Dr. Hadley. Provided a provider report called in, patient will present to the emergency department for evaluation. Patient Instructions: Please present to the emergency department for evaluation for suspicion of osteomyelitis and cellulitis. Coding Level of Care Code Est Pt Level 3 (34016) Diagnoses Cellulitis of left foot L03.116 Wound infection T14.8XXA; L08.9
[2023-03-09 12:11] VITALS: BP 112/62; PULSE 88; TEMP 35.4; O2SAT 98
== END 2023-03-09 13:40 | disposition home or self-care (01) ==
PROVIDERS: PCP Nurse Practitioner Family; Visit Provider Nurse Practitioner Family
DX: L03.116 Cellulitis of left lower limb (principal); T14.8XXA Other injury of unspecified body region, initial encounter; L08.9 Local infection of the skin and subcutaneous tissue, unspecified
CPT/HCPCS: 99213

== ENCOUNTER 2023-03-09 12:41 | Inpatient (IN) | payer MEDICARE, SELFPAY ==
--- NOTE | ~2023-03-09 | IR_ITS ---
PROCEDURE: IR INSERTION OF PICC CLINICAL INFORMATION: Needs 6 weeks of IV antibiotics for osteomyelitis. COMPARISON: None available. TECHNIQUE: Ultrasound and fluoroscopic-guided PICC line placement. All elements of maximal sterile barrier technique followed including use of cap, mask, sterile gown, sterile gloves, a sterile full body drape and hand hygiene. Also followed skin preparation with 2% chlorhexidine for cutaneous antisepsis, and sterile ultrasound preparation with sterile gel and probe cover when applicable. FINDINGS: The patient was brought to the conventional radiology suite and a timeout procedure was performed. A sonographic survey was performed for localization of venous access. The right brachial vein was confirmed to be patent. Image was sent to PACS for documentation. The right arm was sterilely prepped and draped. Maximum sterile barrier technique was maintained throughout the procedure. Following administration of local anesthesia using 1% lidocaine, a puncture was performed of the right brachial vein above the elbow joint under direct sonographic visualization. A [place] mandrel wire was advanced into the needle to the superior vena cava. A 5 Dutch peel-away sheath was then in inserted using standard Seldinger technique. A 5 [place] single lumen PASV PICC was cut to 42 cm. The catheter was advanced under fluoroscopic guidance until its tip was at the SVC-right atrial junction. The port could be easily aspirated. The lumen of the PICC was flushed with normal saline. A Biopatch was placed around around the catheter at the entrance site. The catheter was secured with a StatLock. A sterile dressing was applied. The patient tolerated the procedure well. There was no evidence of complications. FLUOROSCOPY TIME: 0.3 minutes DAP: 87 cGy centimeter squared IR/IR cvc insert peripheral IMPRESSION: Successful placement of a 42 cm length right arm PICC line under a combination of sonographic and fluoroscopic guidance. No evidence of complications.
--- NOTE | ~2023-03-09 | IR_ITS ---
PROCEDURE: IR INSERTION OF PICC CLINICAL INFORMATION: Needs 6 weeks of IV antibiotics for osteomyelitis. COMPARISON: None available. TECHNIQUE: Ultrasound and fluoroscopic-guided PICC line placement. All elements of maximal sterile barrier technique followed including use of cap, mask, sterile gown, sterile gloves, a sterile full body drape and hand hygiene. Also followed skin preparation with 2% chlorhexidine for cutaneous antisepsis, and sterile ultrasound preparation with sterile gel and probe cover when applicable. FINDINGS: The patient was brought to the conventional radiology suite and a timeout procedure was performed. A sonographic survey was performed for localization of venous access. The right brachial vein was confirmed to be patent. Image was sent to PACS for documentation. The right arm was sterilely prepped and draped. Maximum sterile barrier technique was maintained throughout the procedure. Following administration of local anesthesia using 1% lidocaine, a puncture was performed of the right brachial vein above the elbow joint under direct sonographic visualization. A [place] mandrel wire was advanced into the needle to the superior vena cava. A 5 [place] peel-away sheath was then in inserted using standard Seldinger technique. A 5 [place] single lumen PASV PICC was cut to 42 cm. The catheter was advanced under fluoroscopic guidance until its tip was at the SVC-right atrial junction. The port could be easily aspirated. The lumen of the PICC was flushed with normal saline. A Biopatch was placed around around the catheter at the entrance site. The catheter was secured with a StatLock. A sterile dressing was applied. The patient tolerated the procedure well. There was no evidence of complications. FLUOROSCOPY TIME: 0.3 minutes DAP: 87 cGy centimeter squared IR/IR us guide venous access IMPRESSION: Successful placement of a 42 cm length right arm PICC line under a combination of sonographic and fluoroscopic guidance. No evidence of complications.
--- NOTE | ~2023-03-09 | XR_ITS ---
EXAMINATION: XR TOES, LEFT CLINICAL INFORMATION: Left leg pain. COMPARISON: Left foot radiographs dated 06/26/2022. TECHNIQUE: 3 views of the left toes were obtained. FINDINGS: Cortical erosive changes and lucency are seen involving the distal head of the fifth metatarsal, the fifth metatarsophalangeal joint and proximal aspect of the proximal phalanx. Postsurgical changes are seen in the first digit status post resection to the level of the mid diaphysis of the first metatarsal. The remainder the digits are intact. Mild to moderate soft tissue swelling is seen. XR/XR toe LT min 2V IMPRESSION: 1. Findings concerning for acute periarticular osteomyelitis at the fifth metatarsophalangeal joint as detailed above.
[2023-03-09 13:06] VITALS: BP 126/68; PULSE 68; RESP 18; TEMP 36; O2SAT 96; BMI 34.3
--- NOTE | 2023-03-09 13:09 | ED.GENADULT ---
HPI - General Adult General Chief complaint: Extremity Injury, Lower Stated complaint: L Foot Infected Wound Time Seen by Provider: 03/09/23 17:13 Source: patient Mode of arrival: ambulatory Limitations: no limitations History of Present Illness HPI narrative: Patient comes to the emergency room complaining of an infection/ulcer to the lateral aspect of the left foot. Patient states that 3 weeks ago it started out as a blister, got prescribed antibiotics for 10 days, cefuroxime. Patient states that initially he started getting better but shortly after, the redness, drainage and pain worsened. Patient denies fever chills. Related Data Home Medications Medication Instructions Recorded Confirmed ibuprofen 200 mg tablet 200 mg PO Q6H PRN Fever 06/26/22 10/08/22 Previous Rx's Medication Instructions Recorded hydrochlorothiazide 12.5 mg tablet 12.5 mg PO DAILY #90 tabs 12/01/22 allopurinol 100 mg tablet 100 mg PO DAILY 90 days #90 tabs 12/02/22 lisinopril 40 mg tablet 40 mg PO DAILY #90 tabs 12/28/22 cefuroxime axetil 500 mg tablet 500 mg PO BID 10 days #20 tabs 02/18/23 Allergies Allergy/AdvReac Type Severity Reaction Status Date / Time No Known Allergies Allergy Verified 03/09/23 13:05 [No Known Allergies*] Review of Systems Review of Systems: Constitutional : No Weight loss, No Fever, No Chills, No Night Sweats, No Fatigue, No Malaise ENT/Mouth : No Hearing loss, No Ear Pain, No Nasal Congestion, No Sinus Pain, No Hoarseness, No sore throat, No Rhinorrhea, No Swallowing Difficulty Eyes: No Eye Pain, No Swelling, No Redness, No Foreign Body, No Discharge, No Vision Changes Cardiovascular : No Chest Pain, No SOB, No Dyspnea on Exertion, No Orthopnea, No Edema, No Palpitations Respiratory : No Cough, No Sputum, No Wheezing, No Smoke Exposure, No Dyspnea Gastrointestinal : No Nausea, No Vomiting, No Diarrhea, No Constipation, No abdominal Pain, No Hematochezia, No Melena Genitourinary : no irregular bleeding, No Dysuria, No Urinary Frequency, No Hematuria, No Urinary Incontinence, No Urgency, No Flank Pain, No Urinary Flow Changes, No Hesitancy Musculoskeletal : No joint pain, No Myalgias, No Joint Swelling Skin : Complaining of an infected blister, drainage and erythema on the lateral aspect of the left foot No Skin Lesions, No rash Neuro : No Weakness, No Numbness, No Paresthesias, No Loss of Consciousness, No Dizziness, No Headache Psych : No Anxiety/Panic, No Depression, No SI/HI/AH/VH, No Social Issues, Heme/Lymph: No Bruising, No Bleeding,No Lymphadenopathy Endocrine : No Polyuria, No Polydipsia, No Temperature Intolerance [facility] Past Medical History Medical History Elevated TSH Gout HTN (hypertension) Obesity Paronychia of great toe Screening PSA (prostate specific antigen) Varicose veins of both lower extremities Surgical History History of amputation of left great toe (07/01/22) Hx of colonoscopy Hx of hand surgery Hx of vascular surgery Status post debridement (06/16/22) Family History Family History Father HTN (hypertension) Mother Parkinsons disease Social History Social History Household Members: Spouse and Children Housing: House Are you a primary career development specialist to a significant other at home: No Do you presently have visiting nurse or other home services: No Alcohol intake: current Alcohol intake frequency: a few times a week Patient Tobacco Use Status: Never used Tobacco e-Cigarette/Vaping Use: Never Used Second Hand Smoke Exposure: No Advance Directives: Yes Advance Directives on File: Yes Advance Directives Date on File: 04/09/22 service: No Current occupational status: retired Cognitive needs: No Hearing needs: No Vision needs: No Physical Exam ED Vital Signs: Vital Signs - 24 hr 03/09/23 13:06 Temperature 96.8 F Pulse Rate 68 Respiratory Rate 18 Blood Pressure 126/68 Pulse Oximetry 96 Oxygen Delivery Method Room Air BMI result Body Mass Index 34.3 Const Other: Appearance: Alert. Oriented X3. No acute distress. Eyes: Pupils equal, round and reactive to light. ENT: Pharynx normal. Neck: Normal inspection. Neck supple. No lymph nodes noted. No crepitus CVS: Normal heart rate and rhythm. Pulses normal. Normal S1 and S2 Respiratory: No respiratory distress. Breath sounds normal. No Wheezing. No rales Abdomen: Soft and nontender. No rigidity. No distention. Skin: Skin warm and dry. Normal skin color. Normal skin turgor. Extremities: No lower extremity edema. No Lacerations. No Rash. Patient has a nonhealing ulcer on the lateral aspect of the left foot, beside the 5th toe. Neuro: Oriented X 3. No motor deficit. No sensory deficit. Moving all extremities. No slurred speech. CN 2 through 12 grossly intact Psych: calm, cooperative, normal affect Course Course Course Narrative: RME- 67-year-old male presents for evaluation and infection of his left 5th toe. He was on antibiotics that finished 5 days ago and reports worsening pain, swelling and discharge from the area. Reports a history of osteomyelitis of the left great toe. Patient was sent from urgent care. Plan for labs including blood cultures, x-ray, inflammatory markers. Medical Decision Making Medical Decision Making [facility] Narrative: -my interpretation of foot x-ray: Missing 5th toe, questionable erosion of the 5th phalanx concerning for osteo -mentor position of labs, patient's white blood cell count within normal limits. Lactic acid normal -normal blood pressure, no fever, sepsis not suspected -patient started on fluids, vanco and Zosyn -I discussed the patient with Dr. Rosario, patient being admitted Differential Diagnosis Differential Diagnoses: The differential diagnosis associated with the presentation includes (Unstageable ulcer, cellulitis, abscess, osteomyelitis) Admission/Observation Consideration of admission/observation: Escalation of care including admission/observation considered Consult Healthcare Provider Management of the patient was discussed with: Hospitalist Lab Data [facility] Lab Attestation statement: I reviewed the patient's lab results. 03/09/23 15:45 03/09/23 15:45 Labs: Lab Results 03/09/23 03/09/23 03/09/23 Range/Units 15:45 15:45 15:45 WBC 9.2 (4.8-10.8) X10*3/uL RBC 4.68 (4.60-5.80) X10*6/uL Hgb 15.7 (14.0-18.0) g/dl Hct 45.2 (42.0-52.0) % MCV 96.6 (80.0-98.0) fL MCH 33.5 H (27.0-33.0) pg MCHC 34.7 (31.0-36.0) g/dl RDW 13.8 (11.0-16.0) % Plt Count 290 (160-400) X10*3/uL MPV 10.1 (9.4-12.4) fL Immature Gran % (Auto) 0.4 (0.0-0.4) % Neut % (Auto) 69.0 (45-73) % Lymph % (Auto) 17.5 L (20-40) % [place] % (Auto) 9.5 (2-11) % Eos % (Auto) 2.7 (0-4) % Baso % (Auto) 0.9 (0-2) % Lymph # (Auto) 1.6 (1.2-4.9) X10*3/uL [place] # (Auto) 0.9 (0.1-1.2) X10*3/uL Eos # (Auto) 0.3 (0.0-0.4) X10*3/uL Baso # (Auto) 0.1 (0.0-0.2) X10*3/uL Abs Immat Gran (auto) 0.04 H (0.00-0.03) X10*3/uL Absolute Neuts (auto) 6.3 (2.0-8.3) x10*3/uL Absolute Nucleated RBC 0.000 (0.0-0.012) X10*3/uL Nucleated RBC % (auto) 0.0 (0.0-0.2) /100WBC ESR 40 H (0-15) MM/HR Sodium 137 (135-145) mmol/L Potassium 4.5 (3.3-5.1) mmol/L Chloride 104 (96-108) mmol/L Carbon Dioxide 25 (22-29) mmol/L Anion Gap 13 (12-20) BUN 19 H (9-16) mg/dL Creatinine 0.90 (0.5-1.4) mg/dL Estim Creat Clear Calc 95.5 Estimated GFR > 60 Random Glucose 97 (60-115) mg/dL Lactic Acid (0.5-2.0) mmol/L Calcium 10.1 (8.4-10.2) mg/dL Total Bilirubin 0.9 (0.0-1.0) mg/dL AST 20 (5-37) U/L ALT 14 (0-40) U/L Alkaline Phosphatase 103 (39-117) U/L C-Reactive Protein 1.41 H (< or = 0.50) mg/dL Total Protein 8.3 H (6.5-8.0) g/dL Albumin 4.0 (3.5-5.0) g/dL Lipase 29 (8-78) U/L 03/09/23 Range/Units 15:45 WBC (4.8-10.8) X10*3/uL RBC (4.60-5.80) X10*6/uL Hgb (14.0-18.0) g/dl Hct (42.0-52.0) % MCV (80.0-98.0) fL MCH (27.0-33.0) pg MCHC (31.0-36.0) g/dl RDW (11.0-16.0) % Plt Count (160-400) X10*3/uL MPV (9.4-12.4) fL Immature Gran % (Auto) (0.0-0.4) % Neut % (Auto) (45-73) % Lymph % (Auto) (20-40) % [place] % (Auto) (2-11) % Eos % (Auto) (0-4) % Baso % (Auto) (0-2) % Lymph # (Auto) (1.2-4.9) X10*3/uL [place] # (Auto) (0.1-1.2) X10*3/uL Eos # (Auto) (0.0-0.4) X10*3/uL Baso # (Auto) (0.0-0.2) X10*3/uL Abs Immat Gran (auto) (0.00-0.03) X10*3/uL Absolute Neuts (auto) (2.0-8.3) x10*3/uL Absolute Nucleated RBC (0.0-0.012) X10*3/uL Nucleated RBC % (auto) (0.0-0.2) /100WBC ESR (0-15) MM/HR Sodium (135-145) mmol/L Potassium (3.3-5.1) mmol/L Chloride (96-108) mmol/L Carbon Dioxide (22-29) mmol/L Anion Gap (12-20) BUN (9-16) mg/dL Creatinine (0.5-1.4) mg/dL Estim Creat Clear Calc Estimated GFR Random Glucose (60-115) mg/dL Lactic Acid 0.9 (0.5-2.0) mmol/L Calcium (8.4-10.2) mg/dL Total Bilirubin (0.0-1.0) mg/dL AST (5-37) U/L ALT (0-40) U/L Alkaline Phosphatase (39-117) U/L C-Reactive Protein (< or = 0.50) mg/dL Total Protein (6.5-8.0) g/dL Albumin (3.5-5.0) g/dL Lipase (8-78) U/L Independent Interpretation I performed an independent interpretation of an: Plain X-Ray Radiology Impression Discussion of test interpretation with radiology: I have reviewed the radiologist's reading. Radiologist Impression: Cortical erosive changes and lucency are seen involving the distal head of the fifth metatarsal, the fifth metatarsophalangeal joint and proximal aspect of the proximal phalanx. Postsurgical changes are seen in the first digit status post resection to the level of the mid diaphysis of the first metatarsal. The remainder the digits are intact. Mild to moderate soft tissue swelling is seen. XR/XR toe LT min 2V IMPRESSION: ? 1. Findings concerning for acute periarticular osteomyelitis at the fifth metatarsophalangeal joint as detailed above. External Record Review External record reviewed: Inpatient record (Patient had osteomyelitis of the 5th digit of the left foot in September of 2022, needed amputation. Or renal injury, due to trauma to the toe) Critical Care Time Critical Care Time Critical Care Time: Yes Total Critical Care Time: 60 Attestation: I have personally provided critical care time. Time includes review of lab data, radiology results, discussion with consultants, and monitoring for potential decompensation. Intervention performed as documented. Discharge Plan Discharge Clinical Impression: Acute osteomyelitis of left foot Patient Disposition: Admitted As Inpatient Prescriptions: No Action hydrochlorothiazide 12.5 mg tablet 12.5 mg PO DAILY Qty: 90 1RF allopurinol 100 mg tablet 100 mg PO DAILY 90 Days Qty: 90 1RF lisinopril 40 mg tablet 40 mg PO DAILY Qty: 90 1RF ibuprofen 200 mg Tablet 200 mg PO Q6H PRN (Reason: Fever) cefuroxime axetil 500 mg tablet 500 mg PO BID 10 Days Qty: 20 0RF
[2023-03-09 16:07] LABS: MANUAL DIFF FLAG NO
[2023-03-09 16:19] LABS: Basophils Absolute Auto 0.1 X10*3/uL (0.0-0.2); Basophils Percent Auto 0.9 % (0-2); Eosinophils Absolute Auto 0.3 X10*3/uL (0.0-0.4); Eosinophils Percent Auto 2.7 % (0-4); Hematocrit 45.2 % (42.0-52.0); Hemoglobin 15.7 g/dl (14.0-18.0); Imm Gran Abs Auto 0.04 X10*3/uL (0.00-0.03); Imm Gran Pct Auto 0.4 % (0.0-0.4); Lactic Acid 0.9 mmol/L (0.5-2.0); Lymphocytes Absolute Auto 1.6 X10*3/uL (1.2-4.9); Lymphocytes Percent Auto 17.5 % (20-40); Mean Corpuscular HGB Conc 34.7 g/dl (31.0-36.0); Mean Corpuscular Hemoglobin 33.5 pg (27.0-33.0); Mean Corpuscular Volume 96.6 fL (80.0-98.0); Mean Platelet Volume 10.1 fL (9.4-12.4); Monocytes Absolute Auto 0.9 X10*3/uL (0.1-1.2); Monocytes Percent Auto 9.5 % (2-11); Neutrophils Absolute Auto 6.3 x10*3/uL (2.0-8.3); Platelet Count 290 X10*3/uL (160-400); Red Blood Count 4.68 X10*6/uL (4.60-5.80); Red Cell Distribution Width 13.8 % (11.0-16.0); White Blood Count 9.2 X10*3/uL (4.8-10.8)
[2023-03-09 16:26] LABS: Alanine Aminotransferase 14 U/L (0-40); Alkaline Phosphatase 103 U/L (39-117); Anion Gap 13 (12-20); Aspartate Amino Transferase 20 U/L (5-37); Bilirubin Total 0.9 mg/dL (0.0-1.0); Blood Urea Nitrogen 19 mg/dL (9-16); C Reactive Protein 1.41 mg/dL (< or = 0.50); Calcium 10.1 mg/dL (8.4-10.2); Carbon Dioxide 25 mmol/L (22-29); Chloride 104 mmol/L (96-108); Creatinine Clr Calc Pharmacy 95.5; Estimated Glomerular Filt Rate > 60; Glucose Random 97 mg/dL (60-115); Lipase 29 U/L (8-78); Potassium 4.5 mmol/L (3.3-5.1); Sodium 137 mmol/L (135-145); Total Protein 8.3 g/dL (6.5-8.0)
[2023-03-09 17:42] LABS: Erythrocyte Sedimentation Rate 40 MM/HR (0-15)
[2023-03-09 18:01] VITALS: BP 122/59; PULSE 70; RESP 16; TEMP 36.4; O2SAT 99
--- NOTE | 2023-03-09 18:06 | P.HPHOSP_ITS ---
History of Present Illness Date of Service: 03/09/23 Attending physician on admission: Callum Locke Chief Complaint: the infection in my foot is worsening This is a 67-year-old male with a past medical history significant for recurrent osteomyelitis of left foot, dyslipidemia, cellulitis, elevated TSH amongst others as noted below presented to the emergency department with complaints of a worsening infection to his left foot. Patient reports the infection started off as a blister about 3 weeks ago and the went to Urgent care where he was prescribed and finished a 10 day course of cefuroxime. Patient reports shortly after finishing the antibiotic he felt better however soon afterwards drainage, pain and redness developed. Patient is denying fever, chills, shortness of breath, sick or potential COVID-19 exposure/contacts. Left toe x-ray: Findings concerning for acute periarticular osteomyelitis at the 5th metatarsophalangeal joint -see report for full details Initial laboratory results: ESR 40, BUN/creatinine 19/0.90, fasting glucose 125, CRP 1.41, total protein 8.3, lactic acid 0.9. In the emergency department the above was performed and patient received 3.375 g Zosyn and 2 g vancomycin. The decision was made to admit patient for medical management Review of Systems Review of Systems: A complete 12 point review of systems has been performed and is negative if not noted in [facility] Medical History Elevated TSH Gout HTN (hypertension) Obesity Paronychia of great toe Screening PSA (prostate specific antigen) Varicose veins of both lower extremities Family History Father HTN (hypertension) Mother Parkinsons disease Surgical History History of amputation of left great toe (07/01/22) Hx of colonoscopy Hx of hand surgery Hx of vascular surgery Status post debridement (06/16/22) Social History Household Members: Spouse and Children Housing: House Are you a primary workforce investment act career manager to a significant other at home: No Do you presently have visiting nurse or other home services: No Alcohol intake: current Alcohol intake frequency: a few times a month Patient Tobacco Use Status: Never used Tobacco Smoked in Last 30 Days: No e-Cigarette/Vaping Use: Never Used Second Hand Smoke Exposure: No Use of substances other than those prescribed or required for medical reasons: No Advance Directives: Yes Advance Directives on File: Yes Advance Directives Date on File: 04/09/22 Nutrition Risks: No Nutritional Risk service: No Current occupational status: retired Cognitive needs: No Hearing needs: No Vision needs: No Meds Allergies Allergy/AdvReac Type Severity Reaction Status Date / Time No Known Allergies Allergy Verified 03/09/23 13:05 [No Known Allergies*] Active Medications: Current Medications Vancomycin HCl (Vancomycin/Ns) 2,000 mg in 500 mls @ 250 mls/hr IV ONCE ONE Stop: 03/09/23 19:52 Piperacillin Sod/Tazobactam (Sod 3.375 gm/ Sodium Chloride) 50 mls @ 100 mls/hr IV ONCE ONE Stop: 03/09/23 18:22 Sodium Chloride (Ns) 1,000 mls @ 999 mls/hr IVCONT .Q1H1M ONE Stop: 03/09/23 18:54 Pharmacy Consult (Consult Rx Perform Med Rec) 1 each MISCELLANE ONCE PRN PRN Reason: Consult order Home Medications Medication Instructions Recorded Confirmed Last Taken Type ibuprofen 200 mg tablet 200 mg PO Q6H PRN Fever 06/26/22 10/08/22 06/26/22 History Physical Exam Vital Signs and Narrative: Vital Signs: Last Vital Signs Temp 97.5 F 03/09/23 18:01 Pulse 70 03/09/23 18:01 Resp 16 03/09/23 18:01 BP 122/59 L 03/09/23 18:01 Pulse Ox 99 03/09/23 18:01 O2 Del Method Room Air 03/09/23 18:01 BMI result Body Mass Index 34.3 Const: Other: General: Appears stated age, in no acute distress, answers questions accurately and appropriately. Skin: Warm and well perfused, see extremity exam for further skin details Respiratory: Lungs CTAB, no rales/rhonchi, no expiratory/inspiratorywheezing, Cardiac: Regular rhythm, no rubs, gallops, murmurs or clicks. No JVD/carotid bruits. Abdomen: Soft, non-distended, bowel sounds noted throughout Extremities: no bilateral lower extremity edema noted, no erythema tenderness noted to the right lower extremity. To the lateral aspect of left foot a blister is present which is infected and purulent drainage is noted with surrounding erythema . Neuro: Alert and oriented x3 Psych: Mood appropriate, no agitation /restlessness noted. Results Labs 03/09/23 15:45 03/09/23 15:45 Labs: Laboratory Results - last 24 hr 03/09/23 03/09/23 03/09/23 15:45 15:45 15:45 MCV 96.6 MCH 33.5 H MCHC 34.7 RDW 13.8 Plt Count 290 MPV 10.1 Immature Gran % (Auto) 0.4 Neut % (Auto) 69.0 Lymph % (Auto) 17.5 L [place] % (Auto) 9.5 Eos % (Auto) 2.7 Baso % (Auto) 0.9 Lymph # (Auto) 1.6 [place] # (Auto) 0.9 Eos # (Auto) 0.3 Baso # (Auto) 0.1 Abs Immat Gran (auto) 0.04 H Absolute Neuts (auto) 6.3 Absolute Nucleated RBC 0.000 Nucleated RBC % (auto) 0.0 ESR 40 H Anion Gap 13 Estim Creat Clear Calc 95.5 Estimated GFR > 60 Random Glucose 97 Lactic Acid Calcium 10.1 Total Bilirubin 0.9 AST 20 ALT 14 Alkaline Phosphatase 103 C-Reactive Protein 1.41 H Total Protein 8.3 H Albumin 4.0 Lipase 29 03/09/23 15:45 MCV MCH MCHC RDW Plt Count MPV Immature Gran % (Auto) Neut % (Auto) Lymph % (Auto) [place] % (Auto) Eos % (Auto) Baso % (Auto) Lymph # (Auto) [place] # (Auto) Eos # (Auto) Baso # (Auto) Abs Immat Gran (auto) Absolute Neuts (auto) Absolute Nucleated RBC Nucleated RBC % (auto) ESR Anion Gap Estim Creat Clear Calc Estimated GFR Random Glucose Lactic Acid 0.9 Calcium Total Bilirubin AST ALT Alkaline Phosphatase C-Reactive Protein Total Protein Albumin Lipase Imaging Radiologist's Impressions: Impressions Toe X-Ray 03/09/23 13:57 IMPRESSION: 1. Findings concerning for acute periarticular osteomyelitis at the fifth metatarsophalangeal joint as detailed above. Assessment and Plan (1) Acute osteomyelitis of left foot: Status: Acute Plan Acute on chronic osteomyelitis of left foot elevated inflammatory markers -Left toe x-ray: Findings concerning for acute periarticular osteomyelitis at the 5th metatarsophalangeal joint -see report for full details -ESR 48, CRP 1.41 -continue vancomycin and Zosyn -Analgesics antiemetics and antipyretics ordered -consider consulting surgery -repeat labs in a.m. Hypertension - Continue home antihypertensives. History of gout - Patient denies flare. Continue allopurinol. OTHER: DVT prophylaxis - intermittent sequential boots, hold off chemical DVT prophylaxis in case patient requires I&D/washout Patient is a full code, confirmed with patient at time of H&P Time Spent With Patient Time: Total time managing care of this patient today ____ minutes. Quality Stroke Does the patient have a stroke diagnosis?: No VTE Prior VTE?: No VTE Risk Level:: Medical - moderate - high VTE Device Contraindication: N/A - Device Ordered VTE Drug Contraindication: Treatment Not Indicated
[2023-03-09] MEDS: 0.9 % Sodium Chloride 1,000 ML 999 ML IVCONT (18:51)
[2023-03-09] MEDS: Piperacillin Sodium/Tazobactam 3.375 GM in 0.9 % Sodium Chloride 50 ML IV (18:53)
--- NOTE | 2023-03-09 18:55 | PC.NURSE ---
20g IV placed in the right AC w/o complications - medications and IVF administered per provider order.
--- NOTE | 2023-03-09 19:15 | PHA.MEDREC ---
Pharmacy Consult ? Medication Reconciliation Pharmacy has completed the medication reconciliation. Patient confirmed all medications. Cassy Ramirez, ShardaD
[2023-03-09] MEDS: vancomycin/NS 2,000 MG/500 ML PLAST..BAG 250 MG IV (20:23)
--- NOTE | 2023-03-09 20:30 | PC.NURSE ---
this rn assumed care of pt @ 1900. pt calm and cooperative. pt medicated according to mar. rn to rn report given to charmaine hardy.
--- NOTE | 2023-03-09 20:31 | PHA.PROG ---
Admission Date/Time: March 09, 2023 18:26 Indication: Osteomylitis Weight in k.409 kg Adjusted body weight in K.163 kg [place] body weight in K kg Obesity Dosing Indication % IBW: 148% Serum Creatinine - Last 168 Hours 03/09/23 15:45 Creatinine 0.90 Estimated CrCl and GFR - Last 168 Hours 03/09/23 15:45 Estim Creat Clear Calc 95.5 Estimated GFR > 60 Vancomycin Loading Dose: 2000 mg Current Vancomycin Dosing Regimen: 1000 mg Q12H Date and Time for next Vancomycin Level to be drawn: 03/10 @ 1800 Pharmacist Comments on Vancomycin Plan: Patient received load dose vancomycin 2000 mg on in the ER 03/09 @ 2022. Patient is consider obese with a %IBW >130%, therefore careful monitoring is required due to vancomycin high volume of distribution. Maintenance dose vanco 1000 mg Q12H is scheduled to start 03/10 @ 0800. Expected AUC 559 wth a trough of 16.8. Level is schedule for prior to 3rd dose to access for safety due to patient comorbidities Pharmacy will monitor renal function daily Vancomycin dosing will take advantage of [employer] as a clinical decision support tool that uses Bayesian modeling to calculate individual patient's pharmacokinetic parameters and forecast the patient's drug concentration time course with the target goal AUC 24 range of 400 - 600 mg/L/hr.
[2023-03-09 20:56] VITALS: BP 147/75; PULSE 59; RESP 17; TEMP 36.8; O2SAT 99
[2023-03-09 21:21] VITALS: BP 140/69; PULSE 58; RESP 16; TEMP 36; O2SAT 98
[2023-03-09] MEDS: Docusate Sodium 100 MG CAPSULE PO (22:04)
[2023-03-09] MEDS: 0.9 % Sodium Chloride Flush 3 ML SYRINGE IVFLUSH (22:06)
[2023-03-09 22:31] VITALS: BMI 34.6
[2023-03-10] MEDS: Piperacillin Sodium/Tazobactam 3.375 GM in 0.9 % Sodium Chloride 50 ML IV ×4 (01:47→18:19)
[2023-03-10 03:45] VITALS: BP 130/61; PULSE 55; RESP 18; TEMP 36.8; O2SAT 97
[2023-03-10 06:48] LABS: Creatinine Clr Calc Pharmacy 87.2; Estimated Glomerular Filt Rate > 60
[2023-03-10 07:36] VITALS: BP 124/58; PULSE 58; RESP 20; TEMP 36.1; O2SAT 97
[2023-03-10] MEDS: vancomycin HCL 1,000 MG in 0.9 % Sodium Chloride 250 ML 270 MG IV (07:49)
[2023-03-10] MEDS: 0.9 % Sodium Chloride Flush 3 ML SYRINGE IVFLUSH ×3 (07:49→20:51)
[2023-03-10] MEDS: Docusate Sodium 100 MG CAPSULE PO (07:52)
[2023-03-10] MEDS: allopurinoL 100 MG TABLET PO (09:19)
[2023-03-10] MEDS: lisinopriL 20 MG TABLET PO (09:19)
--- NOTE | 2023-03-10 09:29 | MHC.CM.PN ---
IMM 03/10/23, EMR REVIEWED, PT ADMITTED W/OSTEO OF LEFT TOE, CM MET W/PT WHO REPORTS HE LIVES ALONE, PT'S MATHIEU NIEVES 2022, PT REPORTS A NEIGHBOR IS CARING FOR PT'S CAT/DOG, PT DENIES USE OF DME/HOME SERVICES AND STILL DRIVES, WHEN DISCUSSING ANTIC HALFWAY IV ABX PT REPORTS HE WOULD WANT TO COME IN DAILY TO SHORT STAY SURGERY HE HAS IN PAST WHEN NEEDING IV ABX AT HOME, PT REPORTS HE WOULD BE UNABLE TO DO THEM AT HOME, PT HAS 2 SONS HOWEVER ONE IS MOVING AND THE OTHER IS ON VACATION AND DOES NOT FEEL THEY WOULD BE ABLE TO ASSIST. PT VERIFIES PCP IS JAMESON SANTACRUZ AND HCP ON FILE IS CLAUDIA AND SON JUANA, CM OFFERED TO COMPLETE A NEW HCP W/PT HIS , HOWEVER PT DECLINES TO CHANGE AT THIS TIME. ANTIC D/C HOME W/PICC AND DAILY IV ABX AT SHORT STAY SURGERY, FAMILY/NEIGHBOR FOR TRANSPORT
--- NOTE | 2023-03-10 10:12 | PM.CNGS ---
History of Present Illness Consult details Consult date: 03/10/23 Requesting physician: Stephanie Camp Narrative: 67-year-old male patient well known to me with a previous history of osteomyelitis involving the left great toe after dropping firewood on his foot. He subsequently required a great toe amputation which is healed well. He now returns with 3 week history of pain and discharge from the lateral left foot. This started with a small blister on the lateral surface at the base of the 5th toe. He was subsequently evaluated at a walk-in center and provided antibiotics for 10 days. He initially noted an improvement in the wound however after completing the antibiotic the pain and swelling returned. He subsequently presented to the emergency department for additional evaluation. Initial laboratories revealed a normal WBC. A foot x-ray however revealed evidence of osteomyelitis involving the distal 5th metatarsal. He was admitted to the hospitalist service for IV antibiotics. Surgical consultation was requested for further management of the wound. Review of Systems Review of Systems: Yes all other systems are reviewed and are negative PMFSH Past Medical History Medical History Elevated TSH Gout HTN (hypertension) Obesity Paronychia of great toe Screening PSA (prostate specific antigen) Varicose veins of both lower extremities Family History Family History Father HTN (hypertension) Mother Parkinsons disease Surgical History Surgical History History of amputation of left great toe (07/01/22) Hx of colonoscopy Hx of hand surgery Hx of vascular surgery Status post debridement (06/16/22) Social History Social History Household Members: None Housing: House Are you a primary clinical care manager to a significant other at home: No Do you presently have visiting nurse or other home services: No Alcohol intake: current Alcohol intake frequency: a few times a month Patient Tobacco Use Status: Never used Tobacco e-Cigarette/Vaping Use: Never Used Second Hand Smoke Exposure: No Advance Directives Date on File: 04/09/22 service: No Current occupational status: retired Cognitive needs: No Hearing needs: No Vision needs: No Meds Allergies Allergy/AdvReac Type Severity Reaction Status Date / Time No Known Allergies Allergy Verified 03/09/23 13:05 [No Known Allergies*] Active Medications: Current Medications Acetaminophen (Acetaminophen 325 Mg Tablet) 650 mg PO Q6H PRN PRN Reason: Pain, Mild (Pain Scale 1-3) Allopurinol (Allopurinol 100 Mg Tablet) 100 mg PO DAILY [facility] Last Admin: 03/10/23 09:19 Dose: 100 mg Docusate Sodium (Docusate Sodium 100 Mg Capsule) 100 mg PO BID [facility] Last Admin: 03/10/23 07:52 Dose: 100 mg Piperacillin Sod/Tazobactam (Sod 3.375 gm/ Sodium Chloride) 50 mls @ 100 mls/hr IV Q6H [facility] Last Infusion: 03/10/23 07:17 Dose: Infused Vancomycin HCl 1,000 mg/ (Sodium Chloride) 270 mls @ 270 mls/hr IV Q12H [facility] Last Infusion: 03/10/23 09:05 Dose: Infused Lisinopril (Lisinopril 20 Mg Tablet) 20 mg PO DAILY [facility]; Protocol Last Admin: 03/10/23 09:19 Dose: 20 mg Ondansetron HCl (Ondansetron Hcl 4 Mg/2 Ml Vial) 4 mg IVPUSH Q8H PRN PRN Reason: Nausea and Vomiting Pharmacy Consult (Consult Rx Perform Med Rec) 1 each MISCELLANE ONCE PRN PRN Reason: Consult order Pharmacy Consult (Consult Rx Vancomycin Dosing) 1 each MISCELLANE DAILY PRN PRN Reason: Consult order Senna (Sennosides 8.6 Mg Tablet) 17.2 mg PO BEDTIME PRN PRN Reason: Constipation Sodium Chloride (0.9 % Sodium Chloride Flush 3 Ml Syringe) 3 ml IVFLUSH QSHIFT [facility] Last Admin: 03/10/23 07:49 Dose: 3 ml Home Medications Medication Instructions Recorded Confirmed Last Taken Type Glucosamine 1 tab PO DAILY 03/09/23 03/09/23 03/09/23 History multivitamin 1 tab PO DAILY 03/09/23 03/09/23 03/09/23 History omega 8-vvy-loj-fish oil 1,000 mg 1 cap PO DAILY 03/09/23 03/09/23 03/09/23 History (120 mg-180 mg) capsule (Fish Oil) Physical Exam Vital Signs: Vital Signs: Last Vital Signs Temp 97.0 F 03/10/23 07:36 Pulse 58 03/10/23 07:36 Resp 20 03/10/23 07:36 BP 124/58 L 03/10/23 07:36 Pulse Ox 97 03/10/23 07:36 O2 Del Method Room Air 03/10/23 07:36 BMI result Body Mass Index 34.6 Const: General: no acute distress and well developed Nutritional Appearance: well nourished Orientation/consciousness: patient oriented x3 Limitations: no limitations HEENT: Head: Yes normocephalic and Yes atraumatic Ears: hearing grossly normal bilaterally Resp: Effort & Inspection: normal respiratory effort Skin: General skin exam: no rashes or lesions noted Neuro: General: patient oriented x3 Extrem: Other: Left foot: Base of 5th toe with an open draining wound measuring approximately 2-3 cm in diameter. There is slight erythema surrounding the wound. Light pressure produces a small amount of serous fluid but no purulent discharge. No ulceration is noted on the 2nd through 5th toe. The base of the great toe incision is healed well. No ulceration noted at the plantar aspect of the foot. Results Labs 03/09/23 15:45 03/10/23 06:07 Labs: Abnormal lab results 03/09/23 03/09/23 03/09/23 Range/Units 15:45 15:45 15:45 MCH 33.5 H (27.0-33.0) pg Lymph % (Auto) 17.5 L (20-40) % Abs Immat Gran (auto) 0.04 H (0.00-0.03) X10*3/uL ESR 40 H (0-15) MM/HR BUN 19 H (9-16) mg/dL C-Reactive Protein 1.41 H (< or = 0.50) mg/dL Total Protein 8.3 H (6.5-8.0) g/dL Short CBC 03/09/23 Range/Units 15:45 WBC 9.2 (4.8-10.8) X10*3/uL Hgb 15.7 (14.0-18.0) g/dl Hct 45.2 (42.0-52.0) % Plt Count 290 (160-400) X10*3/uL BMP 03/09/23 03/10/23 15:45 06:07 Sodium 137 Potassium 4.5 Chloride 104 Carbon Dioxide 25 BUN 19 H Creatinine 0.90 0.99 Calcium 10.1 Liver Function 03/09/23 Range/Units 15:45 Total Bilirubin 0.9 (0.0-1.0) mg/dL AST 20 (5-37) U/L ALT 14 (0-40) U/L Alkaline Phosphatase 103 (39-117) U/L Albumin 4.0 (3.5-5.0) g/dL All other labs normal. Imaging Additional studies: Left foot x-ray: Assessment and Plan (1) Acute osteomyelitis of left foot: Status: Acute Plan 67-year-old male patient presenting with a new area of osteomyelitis involving the 5th metatarsal distal head with an open wound on the lateral surface. Options include prolonged IV antibiotics for 6 weeks, amputation of the 5th toe and distal metatarsal head, or debridement of the distal metatarsal with preserving of the 5th toe. We discussed the various options in detail along with the relative risks and benefits. He would like to avoid losing a toe if possible there for would like to try the antibiotics. If this is not successful or not an option he is amenable to debridement. I will follow along during his hospitalization. Time Spent With Patient Time: Total time managing care of this patient today ____ minutes. Procedures Date of Service Date of Service: 03/10/23
--- NOTE | 2023-03-10 14:51 | HO.PM.IMPN ---
Subjective Subjective Date of Service: 03/10/23 Interval History: Seen and evaluated this morning Denies fever or chills No significant pain in foot Review of Systems Review of Systems: Yes all other systems are reviewed and are negative Physical Exam Vital Signs: Vital Signs: Last Vital Signs Temp 97.0 F 03/10/23 07:36 Pulse 58 03/10/23 07:36 Resp 20 03/10/23 07:36 BP 124/58 L 03/10/23 07:36 Pulse Ox 97 03/10/23 07:36 O2 Del Method Room Air 03/10/23 07:36 BMI result Body Mass Index 34.6 Const: Other: General: Appears stated age, in no acute distress Skin: Warm and well perfused, Respiratory: Lungs CTAB, no rales/rhonchi, no expiratory/inspiratorywheezing, Cardia: Regular rhythm, no rubs, gallops, murmurs or clicks. No JVD/carotid bruits. Abdomen: Soft, non-distended, bowel sounds noted throughout Extremities: no erythema tenderness noted to the right lower extremity. To the lateral aspect of left foot a blister is present which is infected and purulent drainage is noted with surrounding erythema Neuro: Alert and oriented x3, no focal deficit Objective Data Active Medications Acetaminophen (Acetaminophen 325 Mg Tablet) 650 mg PO Q6H PRN PRN Reason: Pain, Mild (Pain Scale 1-3) Allopurinol (Allopurinol 100 Mg Tablet) 100 mg PO DAILY [facility] Last Admin: 03/10/23 09:19 Dose: 100 mg Documented By: SREE Docusate Sodium (Docusate Sodium 100 Mg Capsule) 100 mg PO BID [facility] Last Admin: 03/10/23 07:52 Dose: 100 mg Documented By: SREE Piperacillin Sod/Tazobactam (Sod 3.375 gm/ Sodium Chloride) 50 mls @ 100 mls/hr IV Q6H [facility] Last Infusion: 03/10/23 14:22 Dose: 0 mls/hr Documented By: SREE Vancomycin HCl 1,000 mg/ (Sodium Chloride) 270 mls @ 270 mls/hr IV Q12H [facility] Last Infusion: 03/10/23 09:05 Dose: 0 mls/hr Documented By: SREE Lisinopril (Lisinopril 20 Mg Tablet) 20 mg PO DAILY [facility]; Protocol Last Admin: 03/10/23 09:19 Dose: 20 mg Documented By: SREE Ondansetron HCl (Ondansetron Hcl 4 Mg/2 Ml Vial) 4 mg IVPUSH Q8H PRN PRN Reason: Nausea and Vomiting Pharmacy Consult (Consult Rx Perform Med Rec) 1 each MISCELLANE ONCE PRN PRN Reason: Consult order Pharmacy Consult (Consult Rx Vancomycin Dosing) 1 each MISCELLANE DAILY PRN PRN Reason: Consult order Senna (Sennosides 8.6 Mg Tablet) 17.2 mg PO BEDTIME PRN PRN Reason: Constipation Sodium Chloride (0.9 % Sodium Chloride Flush 3 Ml Syringe) 3 ml IVFLUSH QSHIFT [facility] Last Admin: 03/10/23 07:49 Dose: 3 ml Documented By: SREE Labs 03/09/23 15:45 03/10/23 06:07 Labs: Laboratory Results - last 24 hr 03/09/23 03/09/23 03/09/23 15:45 15:45 15:45 MCV 96.6 MCH 33.5 H MCHC 34.7 RDW 13.8 Plt Count 290 MPV 10.1 Immature Gran % (Auto) 0.4 Neut % (Auto) 69.0 Lymph % (Auto) 17.5 L [place] % (Auto) 9.5 Eos % (Auto) 2.7 Baso % (Auto) 0.9 Lymph # (Auto) 1.6 [place] # (Auto) 0.9 Eos # (Auto) 0.3 Baso # (Auto) 0.1 Abs Immat Gran (auto) 0.04 H Absolute Neuts (auto) 6.3 Absolute Nucleated RBC 0.000 Nucleated RBC % (auto) 0.0 ESR 40 H Anion Gap 13 Estim Creat Clear Calc 95.5 Estimated GFR > 60 Random Glucose 97 Lactic Acid Calcium 10.1 Total Bilirubin 0.9 AST 20 ALT 14 Alkaline Phosphatase 103 C-Reactive Protein 1.41 H Total Protein 8.3 H Albumin 4.0 Lipase 29 03/09/23 03/10/23 15:45 06:07 MCV MCH MCHC RDW Plt Count MPV Immature Gran % (Auto) Neut % (Auto) Lymph % (Auto) [place] % (Auto) Eos % (Auto) Baso % (Auto) Lymph # (Auto) [place] # (Auto) Eos # (Auto) Baso # (Auto) Abs Immat Gran (auto) Absolute Neuts (auto) Absolute Nucleated RBC Nucleated RBC % (auto) ESR Anion Gap Estim Creat Clear Calc 87.2 Estimated GFR > 60 Random Glucose Lactic Acid 0.9 Calcium Total Bilirubin AST ALT Alkaline Phosphatase C-Reactive Protein Total Protein Albumin Lipase Assessment and Plan (1) Acute osteomyelitis of left foot: Status: Acute (2) Wound infection: Status: Acute Plan A 67 years old male with PMH of DM, HTN, DFI w amputation who presents with Lt foot 5th toe open wound. Acute on chronic osteomyelitis of left foot Left toe x-ray: Findings concerning for acute periarticular osteomyelitis at the 5th metatarsophalangeal joint continue vancomycin and Zosyn Analgesics antiemetics and antipyretics ordered surgery input appreciated repeat labs in a.m. follow Vanco trough Hypertension Continue home antihypertensives. History of gout Patient denies flare. Continue allopurinol. DVT prophylaxis Lovenox SC Will need overnight hospital stay for treatment of osteomyelitis Time Spent With Patient Time: Total time managing care of this patient today ____ minutes. Quality Stroke Does the patient have a stroke diagnosis?: No VTE Prior VTE?: No VTE Risk Level:: Medical - moderate - high VTE Device Contraindication: N/A - Device Ordered VTE Drug Contraindication: Treatment Not Indicated
[2023-03-10 15:05] VITALS: BP 124/61; PULSE 48; RESP 16; TEMP 37; O2SAT 97
[2023-03-10 15:15] VITALS: PULSE 54
[2023-03-10] MEDS: Enoxaparin Sodium 40 MG/0.4 ML SYRINGE SUBCUT (15:47)
[2023-03-10 19:11] VITALS: BP 121/76; PULSE 86; RESP 20; TEMP 36.2; O2SAT 96
[2023-03-10 19:14] VITALS: BP 120/65; PULSE 54; RESP 18; TEMP 35.9; O2SAT 97
[2023-03-10] MEDS: vancomycin HCL 1,000 MG in 0.9 % Sodium Chloride 250 ML 250 MG IV (20:51)
[2023-03-10 21:08] LABS: Vancomycin Random 13.4 mcg/mL (15-20)
[2023-03-11] MEDS: Piperacillin Sodium/Tazobactam 3.375 GM in 0.9 % Sodium Chloride 50 ML IV ×4 (00:54→18:24)
[2023-03-11 03:34] VITALS: BP 132/60; PULSE 54; RESP 16; TEMP 37.2; O2SAT 95
[2023-03-11 06:52] LABS: Creatinine Clr Calc Pharmacy 88.1; Estimated Glomerular Filt Rate > 60
[2023-03-11 07:22] VITALS: BP 114/52; PULSE 53; RESP 20; TEMP 36.2; O2SAT 97
[2023-03-11] MEDS: vancomycin HCL 1,000 MG in 0.9 % Sodium Chloride 250 ML 270 MG IV (08:34)
[2023-03-11] MEDS: allopurinoL 100 MG TABLET PO (08:35)
[2023-03-11] MEDS: 0.9 % Sodium Chloride Flush 3 ML SYRINGE IVFLUSH ×3 (08:35→20:17)
[2023-03-11] MEDS: Docusate Sodium 100 MG CAPSULE PO (08:35)
[2023-03-11] MEDS: lisinopriL 20 MG TABLET PO (08:35)
--- NOTE | 2023-03-11 11:28 | MHC.CM.PN ---
CM HAS CONTACTED SHORT STAY SURGERY AND SPOKE W/[facility] WHO IS COVERING FOR [facility] WHO IS OFF THIS WEEK, REFERRAL W/FACE SHEET/H&P AND SURGICAL H&P FAXED TO [facility] AND CM WILL AWAIT RESPONSE.
[2023-03-11] MEDS: Enoxaparin Sodium 40 MG/0.4 ML SYRINGE SUBCUT (13:58)
[2023-03-11 16:00] VITALS: BP 122/57; PULSE 98; RESP 18; TEMP 37; O2SAT 97
--- NOTE | 2023-03-11 16:09 | HO.PM.IMPN ---
Subjective Subjective Date of Service: 03/11/23 Interval History: Seen and evaluated this morning Denies fever or chills No significant pain in foot Review of Systems Review of Systems: Yes all other systems are reviewed and are negative Physical Exam Vital Signs: Vital Signs: Last Vital Signs Temp 97.1 F 03/11/23 07:22 Pulse 53 03/11/23 07:22 Resp 20 03/11/23 07:22 BP 114/52 L 03/11/23 07:22 Pulse Ox 97 03/11/23 07:22 O2 Del Method Room Air 03/11/23 07:22 BMI result Body Mass Index 34.6 Const: Other: General: Appears stated age, in no acute distress Skin: Warm and well perfused, Respiratory: Lungs CTAB, no rales/rhonchi, no expiratory/inspiratorywheezing, Cardia: Regular rhythm, no rubs, gallops, murmurs or clicks. No JVD/carotid bruits. Abdomen: Soft, non-distended, bowel sounds noted throughout Extremities: no erythema tenderness noted to the right lower extremity. To the lateral aspect of left foot a blister is present which is infected and purulent drainage is noted with surrounding erythema Neuro: Alert and oriented x3, no focal deficit Objective Data Active Medications Acetaminophen (Acetaminophen 325 Mg Tablet) 650 mg PO Q6H PRN PRN Reason: Pain, Mild (Pain Scale 1-3) Allopurinol (Allopurinol 100 Mg Tablet) 100 mg PO DAILY [facility] Last Admin: 03/11/23 08:35 Dose: 100 mg Documented By: MEHRDAD Docusate Sodium (Docusate Sodium 100 Mg Capsule) 100 mg PO BID [facility] Last Admin: 03/11/23 08:35 Dose: 100 mg Documented By: MEHRDAD Enoxaparin Sodium (Enoxaparin Sodium 40 Mg/0.4 Ml Syringe) 40 mg SUBCUT Q24H [facility] Last Admin: 03/11/23 13:58 Dose: 40 mg Documented By: MEHRDAD Piperacillin Sod/Tazobactam (Sod 3.375 gm/ Sodium Chloride) 50 mls @ 100 mls/hr IV Q6H [facility] Last Infusion: 03/11/23 14:31 Dose: 0 mls/hr Documented By: MEHRDAD Vancomycin HCl 1,000 mg/ (Sodium Chloride) 270 mls @ 270 mls/hr IV Q12H [facility] Last Infusion: 03/11/23 09:45 Dose: 0 mls/hr Documented By: MEHRDAD Lisinopril (Lisinopril 20 Mg Tablet) 20 mg PO DAILY [facility]; Protocol Last Admin: 03/11/23 08:35 Dose: 20 mg Documented By: MEHRDAD Ondansetron HCl (Ondansetron Hcl 4 Mg/2 Ml Vial) 4 mg IVPUSH Q8H PRN PRN Reason: Nausea and Vomiting Pharmacy Consult (Consult Rx Perform Med Rec) 1 each MISCELLANE ONCE PRN PRN Reason: Consult order Pharmacy Consult (Consult Rx Vancomycin Dosing) 1 each MISCELLANE DAILY PRN PRN Reason: Consult order Senna (Sennosides 8.6 Mg Tablet) 17.2 mg PO BEDTIME PRN PRN Reason: Constipation Sodium Chloride (0.9 % Sodium Chloride Flush 3 Ml Syringe) 3 ml IVFLUSH QSHIFT [facility] Last Admin: 03/11/23 08:35 Dose: 3 ml Documented By: MEHRDAD Labs 03/09/23 15:45 03/11/23 05:57 Labs: Laboratory Results - last 24 hr 03/10/23 03/11/23 17:56 05:57 Estim Creat Clear Calc 88.1 Estimated GFR > 60 Random Vancomycin 13.4 L Microbiology Microbiology Results: Microbiology 03/09/23 16:19 Blood Culture - Preliminary Blood - Venous No growth after 24 hours. 03/09/23 15:45 Blood Culture - Preliminary Blood - Venous No growth after 24 hours. Assessment and Plan (1) Acute osteomyelitis of left foot: Status: Acute Plan A 67 years old male with PMH of DM, HTN, DFI w amputation who presents with Lt foot 5th toe open wound. Acute on chronic osteomyelitis of left foot Left toe x-ray: Findings concerning for acute periarticular osteomyelitis at the 5th metatarsophalangeal joint continue vancomycin and Zosyn Analgesics antiemetics and antipyretics ordered surgery input appreciated, treatment with antibiotics for now Place PICC Line by tomorrow follow Vanco trough Hypertension Continue home antihypertensives. History of gout Patient denies flare. Continue allopurinol. DVT prophylaxis Lovenox SC Will need overnight hospital stay for treatment of osteomyelitis Time Spent With Patient Time: Total time managing care of this patient today ____ minutes. Quality Stroke Does the patient have a stroke diagnosis?: No VTE Prior VTE?: No VTE Risk Level:: Medical - moderate - high VTE Device Contraindication: N/A - Device Ordered VTE Drug Contraindication: Treatment Not Indicated
--- NOTE | 2023-03-11 19:37 | HE.PHANOTE ---
VANCO DOSE ADJUSTMENT BASED ON SCR AND TROUGH OF 16.0 DOSE CONTINUED AT 1G Q12H. NEXT TROUGH 03/12 @ 1800
[2023-03-11 20:00] VITALS: BP 117/64; PULSE 57; RESP 17; TEMP 36.7; O2SAT 98
[2023-03-11] MEDS: vancomycin HCL 1,000 MG in 0.9 % Sodium Chloride 250 ML 250 MG IV (20:15)
[2023-03-12] MEDS: Piperacillin Sodium/Tazobactam 3.375 GM in 0.9 % Sodium Chloride 50 ML IV ×2 (00:38→06:43)
[2023-03-12 02:39] VITALS: BP 128/60; PULSE 50; RESP 18; TEMP 37; O2SAT 98
[2023-03-12 06:42] LABS: Estimated Glomerular Filt Rate > 60
--- NOTE | 2023-03-12 07:32 | P.CDIM_ITS ---
PROVIDER RESPONSE TEXT: To clarify, the appropriate diagnosis supported by the clinical indicators: Other (explain): Diabetic foot wound QUERY TEXT: PHYSICIAN'S DOCUMENTATION REQUEST Date of Query: 03/11/2023 09:04 AM EDT Patient Name: Jorge Guardado Admit Date: 03/09/2023 Dear Stephanie Camp, A review of the medical record indicates additional documentation may be needed. Please review below and update the documentation accordingly. Clinical Indicators: Per General Surgery Consultation 03/10/23: new area of osteomyelitis involving the 5th metatarsal distal head with an open wound on the lateral surface Per Hospitalist Progress Note 03/10/23: lateral aspect of left foot a blister is present which is infected and purulent drainage is noted wit h surrounding erythema Based on the above, could you please provide further information regarding the type and severity of t he ulcer/wound: Venous stasis ulcer Please specify the severity of the ulcer/wound Arterial (ischemic) ulcer Please specify the severity the ulcer/wound Pressure (decubitus) ulcer Please include the stage of the ulcer/wound Traumatic wound Please specify the severity of the ulcer/wound Other (explain)Clinically unable to determine (explain)Thank you, Tasia Romero RN Use of terms such as suspected, likely, concern for, or probable (associated with a specific diagnosi s that is being evaluated, monitored, or treated as if it exists) are acceptable and can be coded in the inpatient se tting, when documented at the time of discharge. Please use your independent medical judgment in providing your response. THIS QUERY IS PART OF THE PERMANENT MEDICAL RECORD
[2023-03-12 07:35] VITALS: BP 119/56; PULSE 50; RESP 20; TEMP 36.1; O2SAT 97
[2023-03-12 08:31] LABS: Glucose, Whole Blood 112 mg/dL (60-115)
[2023-03-12] MEDS: vancomycin HCL 1,000 MG in 0.9 % Sodium Chloride 250 ML 270 MG IV (08:33)
[2023-03-12] MEDS: lisinopriL 20 MG TABLET PO (08:34)
[2023-03-12] MEDS: allopurinoL 100 MG TABLET PO (08:34)
--- NOTE | 2023-03-12 10:51 | P.PNIM_ITS ---
Subjective Subjective Date of Service: 03/12/23 Interval History: Seen and evaluated this morning Denies fever or chills waiting PICC line placement No significant pain in foot Review of Systems Review of Systems: Yes all other systems are reviewed and are negative Physical Exam Vital Signs: Vital Signs: Last Vital Signs Temp 97.0 F 03/12/23 07:35 Pulse 50 03/12/23 07:35 Resp 20 03/12/23 07:35 BP 119/56 L 03/12/23 07:35 Pulse Ox 97 03/12/23 07:35 O2 Del Method Room Air 03/12/23 07:35 BMI result Body Mass Index 34.6 Const: Other: General: Appears stated age, in no acute distress Skin: Warm and well perfused, Respiratory: Lungs CTAB, no rales/rhonchi, no expiratory/inspiratorywheezing, Cardia: Regular rhythm, no rubs, gallops, murmurs or clicks. No JVD/carotid bruits. Abdomen: Soft, non-distended, bowel sounds noted throughout Extremities: no erythema tenderness noted to the right lower extremity. To the lateral aspect of left foot a blister is present which is infected and purulent drainage is noted with surrounding erythema Neuro: Alert and oriented x3, no focal deficit Objective Data Active Medications Acetaminophen (Acetaminophen 325 Mg Tablet) 650 mg PO Q6H PRN PRN Reason: Pain, Mild (Pain Scale 1-3) Allopurinol (Allopurinol 100 Mg Tablet) 100 mg PO DAILY [facility] Last Admin: 03/12/23 08:34 Dose: 100 mg Documented By: MENA Docusate Sodium (Docusate Sodium 100 Mg Capsule) 100 mg PO BID [facility] Last Admin: 03/12/23 08:35 Dose: Not Given Documented By: MENA Non-Admin Reason: Patient Refused Enoxaparin Sodium (Enoxaparin Sodium 40 Mg/0.4 Ml Syringe) 40 mg SUBCUT Q24H [facility] Last Admin: 03/11/23 13:58 Dose: 40 mg Documented By: MEHRDAD Piperacillin Sod/Tazobactam (Sod 3.375 gm/ Sodium Chloride) 50 mls @ 100 mls/hr IV Q6H [facility] Last Infusion: 03/12/23 09:36 Dose: 0 mls/hr Documented By: MENA Vancomycin HCl 1,000 mg/ (Sodium Chloride) 270 mls @ 270 mls/hr IV Q12H [facility] Last Infusion: 03/12/23 09:36 Dose: 0 mls/hr Documented By: MENA Lisinopril (Lisinopril 20 Mg Tablet) 20 mg PO DAILY [facility]; Protocol Last Admin: 03/12/23 08:34 Dose: 20 mg Documented By: MENA Ondansetron HCl (Ondansetron Hcl 4 Mg/2 Ml Vial) 4 mg IVPUSH Q8H PRN PRN Reason: Nausea and Vomiting Pharmacy Consult (Consult Rx Perform Med Rec) 1 each MISCELLANE ONCE PRN PRN Reason: Consult order Pharmacy Consult (Consult Rx Vancomycin Dosing) 1 each MISCELLANE DAILY PRN PRN Reason: Consult order Senna (Sennosides 8.6 Mg Tablet) 17.2 mg PO BEDTIME PRN PRN Reason: Constipation Sodium Chloride (0.9 % Sodium Chloride Flush 3 Ml Syringe) 3 ml IVFLUSH QSHIFT [facility] Last Admin: 03/12/23 08:35 Dose: Not Given Documented By: MENA Non-Admin Reason: IV Running Labs 03/09/23 15:45 03/12/23 05:53 Labs: Laboratory Results - last 24 hr 03/11/23 03/12/23 03/12/23 18:04 05:53 07:52 Estim Creat Clear Calc 83.0 Estimated GFR > 60 POC Glucose 112 Random Vancomycin 16.0 Microbiology Microbiology Results: Microbiology 03/09/23 16:19 Blood Culture - Preliminary Blood - Venous No growth after 48 hours. 03/09/23 15:45 Blood Culture - Preliminary Blood - Venous No growth after 48 hours. Assessment and Plan (1) Acute osteomyelitis of left foot: Status: Acute Plan A 67 years old male with PMH of DM, HTN, DFI w amputation who presents with Lt foot 5th toe open wound. Acute on chronic osteomyelitis of left foot Left toe x-ray: Findings concerning for acute periarticular osteomyelitis at the 5th metatarsophalangeal joint Wound seems to be improving blood cultures negative DC Zosyn, continue vancomycin Analgesics antiemetics and antipyretics ordered surgery input appreciated, treatment with antibiotics for now Place PICC Line To get ID input Likely 6 weeks of Daptomycin follow Vanco trough Hypertension Continue home antihypertensives. History of gout Patient denies flare. Continue allopurinol. DVT prophylaxis Lovenox SC Will need overnight hospital stay for treatment of osteomyelitis Time Spent With Patient Time: Total time managing care of this patient today ____ minutes. Quality Stroke Does the patient have a stroke diagnosis?: No VTE Prior VTE?: No VTE Risk Level:: Medical - moderate - high VTE Device Contraindication: N/A - Device Ordered VTE Drug Contraindication: Treatment Not Indicated
--- NOTE | 2023-03-12 13:46 | MHC.CM.PN ---
CM MET W/PT WHO REPORTS HE WOULD LIKE TO LEAVE [facility], PT AWARE SHORT STAY CANNOT START UNTIL THURSDAY 03/15, PT WOULD LIKE TO D/C WEDNESDAY AM AFTER FIRST DOSE OF DAPTO HE HAS ANIMALS HE WANTS TO GET BACK TO. CM RECEIVED CALL FROM [facility] DIRECTOR OF SHORT STAY AND THEY WILL NEED A SCRIPT FOR IV ABX W/THE DIAGNOSIS AND CPT CODE FROM OUTPT PROVIDER BEFORE THEY WILL ACCEPT PT THEY NEED PROOF THAT SOMEONE WILL BE FOLLOWING FOR LABS ETC. CM DID CONTACT PT'S PCP OFFICE WHO DECLINED TO FOLLOW AND SAID IT WOULD NEED TO BE ID. ID PROVIDER ON VACATION BUT DID RESPOND TO [facility] AND GAVE VERBAL OKAY VIA [facility] AND WILL SEE PT NEXT WEEK IN OFFICE. CM WILL FORWARD [facility] TO SHORT STAY.
--- NOTE | 2023-03-12 15:14 | MHC.CM.PN ---
CM RECEIVED CONFIRMATION FROM [facility] THAT SHORT STAY CAN PROVIDE DAILY IV ABX FOR PT W/DR BLAS FOLLOWING, PER SHORT STAY PT SHOULD ARRIVE AT 10:30AM ON WEDNESDAY AND THEY WILL SCHEDULE THE REMAINDER OF VISITS.
[2023-03-12 15:41] VITALS: BP 129/67; PULSE 54; RESP 18; TEMP 36.1; O2SAT 99
[2023-03-12] MEDS: Enoxaparin Sodium 40 MG/0.4 ML SYRINGE SUBCUT (18:09)
[2023-03-12 19:00] LABS: Vancomycin Random 17.8 mcg/mL (15-20)
[2023-03-12 20:00] VITALS: BP 152/65; PULSE 59; RESP 15; TEMP 36.4; O2SAT 98
[2023-03-12] MEDS: vancomycin HCL 1,000 MG in 0.9 % Sodium Chloride 250 ML 200 MG IV (20:56)
[2023-03-12] MEDS: 0.9 % Sodium Chloride Flush 3 ML SYRINGE IVFLUSH (21:03)
[2023-03-13 04:00] VITALS: BP 150/65; PULSE 62; RESP 17; TEMP 36.6; O2SAT 97
[2023-03-13 07:06] VITALS: BP 122/54; PULSE 52; RESP 16; TEMP 36.7; O2SAT 97
[2023-03-13 07:40] LABS: Creatinine Clr Calc Pharmacy 85.4; Estimated Glomerular Filt Rate > 60
[2023-03-13] MEDS: vancomycin HCL 1,000 MG in 0.9 % Sodium Chloride 250 ML 250 MG IV (08:10)
[2023-03-13] MEDS: allopurinoL 100 MG TABLET PO (08:10)
[2023-03-13] MEDS: lisinopriL 20 MG TABLET PO (08:10)
--- NOTE | 2023-03-13 11:35 | HO.PM.IMPN ---
Subjective Subjective Date of Service: 03/13/23 Interval History: Seen and evaluated this morning Denies fever or chills waiting PICC line placement No significant pain in foot Physical Exam Vital Signs: Vital Signs: Last Vital Signs Temp 98.1 F 03/13/23 07:06 Pulse 52 03/13/23 07:06 Resp 16 03/13/23 07:06 BP 122/54 L 03/13/23 07:06 Pulse Ox 97 03/13/23 07:06 O2 Del Method Room Air 03/13/23 07:06 BMI result Body Mass Index 34.6 Const: Other: General: Appears stated age, in no acute distress Skin: Warm and well perfused, PICC in place Respiratory: Lungs CTAB, no rales/rhonchi, no expiratory/inspiratorywheezing, Cardia: Regular rhythm, no rubs, gallops, murmurs or clicks. No JVD/carotid bruits. Abdomen: Soft, non-distended, bowel sounds noted throughout Extremities: no erythema tenderness noted to the right lower extremity. To the lateral aspect of left foot improving erythema covered with dressing Neuro: Alert and oriented x3, no focal deficit Objective Data Active Medications Acetaminophen (Acetaminophen 325 Mg Tablet) 650 mg PO Q6H PRN PRN Reason: Pain, Mild (Pain Scale 1-3) Allopurinol (Allopurinol 100 Mg Tablet) 100 mg PO DAILY [facility] Last Admin: 03/13/23 08:10 Dose: 100 mg Documented By: MENA Docusate Sodium (Docusate Sodium 100 Mg Capsule) 100 mg PO BID [facility] Last Admin: 03/13/23 09:42 Dose: Not Given Documented By: MENA Non-Admin Reason: Patient Refused Enoxaparin Sodium (Enoxaparin Sodium 40 Mg/0.4 Ml Syringe) 40 mg SUBCUT Q24H [facility] Last Admin: 03/12/23 18:09 Dose: 40 mg Documented By: MENA Vancomycin HCl 1,000 mg/ (Sodium Chloride) 270 mls @ 270 mls/hr IV Q12H [facility] Last Infusion: 03/13/23 09:41 Dose: 0 mls/hr Documented By: MENA Lisinopril (Lisinopril 20 Mg Tablet) 20 mg PO DAILY [facility]; Protocol Last Admin: 03/13/23 08:10 Dose: 20 mg Documented By: MENA Ondansetron HCl (Ondansetron Hcl 4 Mg/2 Ml Vial) 4 mg IVPUSH Q8H PRN PRN Reason: Nausea and Vomiting Pharmacy Consult (Consult Rx Perform Med Rec) 1 each MISCELLANE ONCE PRN PRN Reason: Consult order Pharmacy Consult (Consult Rx Vancomycin Dosing) 1 each MISCELLANE DAILY PRN PRN Reason: Consult order Senna (Sennosides 8.6 Mg Tablet) 17.2 mg PO BEDTIME PRN PRN Reason: Constipation Sodium Chloride (0.9 % Sodium Chloride Flush 3 Ml Syringe) 3 ml IVFLUSH QSHIFT [facility] Last Admin: 03/13/23 09:41 Dose: Not Given Documented By: MENA Non-Admin Reason: IV Running Sodium Chloride (0.9 % Sodium Chloride Flush 10 Ml Syringe) 5 ml IVFLUSH TID [facility] Last Admin: 03/13/23 09:42 Dose: Not Given Documented By: MENA Non-Admin Reason: IV Running Labs 03/09/23 15:45 03/13/23 06:44 Labs: Laboratory Results - last 24 hr 03/12/23 03/13/23 18:15 06:44 Estim Creat Clear Calc 85.4 Estimated GFR > 60 Random Vancomycin 17.8 Assessment and Plan (1) Acute osteomyelitis of left foot: Status: Acute Plan A 67 years old male with PMH of DM, HTN, DFI w amputation who presents with Lt foot 5th toe open wound. Acute on chronic osteomyelitis of left foot Left toe x-ray: Findings concerning for acute periarticular osteomyelitis at the 5th metatarsophalangeal joint Wound seems to be improving blood cultures negative DC Zosyn, continue vancomycin Analgesics antiemetics and antipyretics ordered surgery input appreciated, treatment with antibiotics for now PICC Line in-place To get ID 6 weeks of Daptomycin follow Vanco trough Hypertension Continue home antihypertensives. History of gout Patient denies flare. Continue allopurinol. DVT prophylaxis Lovenox SC Will need overnight hospital stay for treatment of osteomyelitis Time Spent With Patient Time: Total time managing care of this patient today ____ minutes. Quality Stroke Does the patient have a stroke diagnosis?: No VTE Prior VTE?: No VTE Risk Level:: Medical - moderate - high VTE Device Contraindication: N/A - Device Ordered VTE Drug Contraindication: Treatment Not Indicated
[2023-03-13 15:28] VITALS: BP 112/53; PULSE 50; RESP 18; TEMP 36.1; O2SAT 98
[2023-03-13] MEDS: Enoxaparin Sodium 40 MG/0.4 ML SYRINGE SUBCUT (17:20)
[2023-03-13] MEDS: 0.9 % Sodium Chloride Flush 10 ML SYRINGE 5 ML IVFLUSH ×2 (17:22→20:43)
[2023-03-13 18:56] LABS: Vancomycin Random 16.8 mcg/mL (15-20)
[2023-03-13 20:28] VITALS: BP 104/52; PULSE 53; RESP 20; TEMP 36.4; O2SAT 98
[2023-03-13] MEDS: vancomycin HCL 1,000 MG in 0.9 % Sodium Chloride 250 ML 270 MG IV (20:40)
[2023-03-13] MEDS: 0.9 % Sodium Chloride Flush 3 ML SYRINGE IVFLUSH (20:43)
[2023-03-14 03:31] VITALS: BP 138/69; PULSE 52; RESP 16; TEMP 36.9; O2SAT 97
[2023-03-14 06:34] LABS: Creatinine Clr Calc Pharmacy 98.1; Estimated Glomerular Filt Rate > 60
[2023-03-14 07:25] VITALS: BP 142/85; PULSE 54; RESP 16; TEMP 37.1; O2SAT 98
[2023-03-14] MEDS: vancomycin HCL 1,000 MG in 0.9 % Sodium Chloride 250 ML 250 MG IV (07:56)
[2023-03-14] MEDS: allopurinoL 100 MG TABLET PO (07:56)
[2023-03-14] MEDS: lisinopriL 20 MG TABLET PO (07:56)
[2023-03-14] MEDS: DAPTOMYCIN IV (10:04)
[2023-03-14] MEDS: SODIUM CHLORIDE 0.9% IV (10:04)
--- NOTE | 2023-03-14 11:31 | PM.DS ---
DS: Providers Provider Date of Service: 03/14/23 Date of admission: 03/09/23 18:26 Primary care physician: MAURILIO Cortez Consults: 03/10/23 08:02 Consult to General Surgery Routine Consulting Provider: [facility] [place] [place] General Surgeons Reason for consultation: Left foot osteomyelitis 03/12/23 10:52 Consult to Infectious Diseases Routine Consulting Provider: [facility] [place] [place] Infectious Disease Reason for consultation: Osteomyelitis. DS: Diagnosis Discharge Diagnosis (1) Acute osteomyelitis of left foot: Status: Acute (2) Wound infection: Status: Acute DS: Summary Hospital Course Hospital Course: Admission note HPI This is a 67-year-old male with a past medical history significant for recurrent osteomyelitis of left foot, dyslipidemia, cellulitis,? elevated TSH amongst others as noted below presented to the emergency department with complaints of a worsening infection to his left foot. Patient reports the infection started off as a blister about 3 weeks ago and the went to Urgent care where he was prescribed and finished a 10 day course of cefuroxime.? Patient reports shortly after finishing the antibiotic he felt better however soon afterwards drainage, pain and redness developed.? Patient is denying fever, chills, shortness of breath, sick or potential COVID-19 exposure/contacts. Left toe x-ray:? Findings concerning for acute periarticular osteomyelitis at the 5th? metatarsophalangeal joint -see report for full details Initial laboratory results:? ESR 40, BUN/creatinine 19/0.90, fasting glucose 125, CRP 1.41, total protein 8.3, lactic acid 0.9. In the emergency department the above was performed and patient received? 3.375 g Zosyn and 2 g vancomycin. The decision was made to admit patient for medical management. Hospital course Admitted for Acute on chronic osteomyelitis of left foot with Left toe x-ray:? Findings concerning for acute periarticular osteomyelitis at the 5th? metatarsophalangeal joint. Treated with IV Vancomycin and Zosyn. Evaluated by surgery who suggested IV antibiotics treatment for 6 weeks and hold on amputation at this stage. Wound seems to be improving with antibiotics. blood cultures negative. Kept on vancomycin. PICC Line placed and he was started on IV Daptomycin to finish total of 6 weeks to finish by 04/20/23. He will follow with wound clinic and Dr Hadley as outpatient. To finish 6 weeks of Daptomycin To follow with dr Hadley as outpatient Wound care as outpatient Time Spent with Patient Time attestation: Total time managing care of this patient today ____ minutes. Discharge coordination time: Greater than 30 minutes Quality: Safe Use of Opioids Does Pt have an Active Cancer Diagnosis on the Problem List?: No Quality: Stroke Does the patient have a stroke diagnosis?: No Physical Exam Vital Signs: Vital Signs: Last Vital Signs Temp 98.8 F 03/14/23 07:25 Pulse 54 03/14/23 07:25 Resp 16 03/14/23 07:25 BP 142/85 H 03/14/23 07:25 Pulse Ox 98 03/14/23 07:25 O2 Del Method Room Air 03/14/23 07:25 BMI result Body Mass Index 34.6 Const: Other: General: Appears stated age, in no acute distress Skin: Warm and well perfused, PICC in place Respiratory: Lungs CTAB, no rales/rhonchi, no expiratory/inspiratorywheezing, Cardia: Regular rhythm, no rubs, gallops, murmurs or clicks. No JVD/carotid bruits. Abdomen: Soft, non-distended, bowel sounds noted throughout Extremities: no erythema tenderness noted to the right lower extremity. To the lateral aspect of left foot improving erythema covered with dressing Neuro: Alert and oriented x3, no focal deficit DS: Data Data Completed and Pending Completed studies during hospitalization [Text1]: Procedures Detachment at Left 1st Toe, Complete, Open Approach (06/26/22) Insertion of Infusion Device into Superior Vena Cava, Percutaneous Approach (04/08/22) Ultrasonography of Superior Vena Cava, Guidance (04/08/22) Labs on day of discharge: Laboratory Results - last 24 hr 03/13/23 03/14/23 18:06 05:59 Creatinine 0.88 Estim Creat Clear Calc 98.1 Estimated GFR > 60 Random Vancomycin 16.8 Preliminary micro results at discharge 03/09/23 16:19 Blood Culture - Preliminary Blood - Venous No growth after 48 hours. 03/09/23 15:45 Blood Culture - Preliminary Blood - Venous No growth after 48 hours. Imaging XR : Radiologist's impression: ITS Impressions Toe X-Ray 03/09/23 13:57 IMPRESSION: 1. Findings concerning for acute periarticular osteomyelitis at the fifth metatarsophalangeal joint as detailed above. Guidance Ultrasound 03/12/23 18:06 IMPRESSION: Successful placement of a 42 cm length right arm PICC line under a combination of sonographic and fluoroscopic guidance. No evidence of complications. PICC Line Insertion 03/12/23 18:06 IMPRESSION: Successful placement of a 42 cm length right arm PICC line under a combination of sonographic and fluoroscopic guidance. No evidence of complications. Discharge Plan Discharge Anticipated Discharge Date/Time: 03/14/23 11:11 Patient Disposition: Home, Self-Care Discharge Diagnosis: Osteomyelitis Referrals: SHORT STAY SURGERY [Other] - 1 Week (PLEASE ARRIVE AT 10:30AM Wednesday FOR YOUR FIRST APPT FOR YOUR IV ANTIBIOTICS. THEY WILL SCHEDULE THE REMAINDER OF YOUR VISITS ON WEDNESDAY.) Short Stay [Other] - 1 Week (03/15/23 10:30 am) Fausto Pat FNP-BC [Primary Care Provider] - 1 Week Discharge Medications: Continued hydrochlorothiazide 12.5 mg tablet 12.5 mg PO DAILY Qty: 90 1RF allopurinol 100 mg tablet 100 mg PO DAILY 90 Days Qty: 90 1RF lisinopril 40 mg tablet 40 mg PO DAILY Qty: 90 1RF multivitamin Tablet 1 tab PO DAILY omega 5-ybb-xwe-fish oil [Fish Oil] 1,000 mg (120 mg-180 mg) Capsule 1 cap PO DAILY Glucosamine 1 tab PO DAILY Discharge Orders: Discharge Order (Routine); Ordered 03/14/23 Ordered By: Stephanie Camp Diet: Advance to usual diet Activity on Discharge: As tolerated Stand Alone Forms: Patient Portal Discharge page Care Plan Goals: Read below Health Concerns: Read below Plan of Treatment: Read below Assessment: To finish 6 weeks of Daptomycin To follow with dr Hadley as outpatient Wound care as outpatient
== END 2023-03-14 12:04 | disposition home or self-care (01) | DRG 638 ==
LOC: HO.ED 18:02 → HO.EDOVER 18:29 → HO.IMC 19:36
PROVIDERS: Physician Assistant; Radiology Diagnostic Radiology; Admitting Provider Registered Nurse; Emergency Provider Emergency Medicine; PCP Nurse Practitioner Family; Visit Provider Student in an Organized Health Care Education/Training Program
PROC: 02HV33Z Insertion of Infusion Device into Superior Vena Cava, Percutaneous Approach (ICD-10-PCS; principal; 2023-03-12 15:00)
DX: E11.69 Type 2 diabetes mellitus with other specified complication (principal); M86.172 Other acute osteomyelitis, left ankle and foot; M86.672 Other chronic osteomyelitis, left ankle and foot; I10 Essential (primary) hypertension; M10.9 Gout, unspecified; E11.621 Type 2 diabetes mellitus with foot ulcer; L97.529 Non-pressure chronic ulcer of other part of left foot with unspecified severity; Z79.899 Other long term (current) drug therapy
CPT/HCPCS: 36415; 36573; 73660; 76937; 80053; 80202; 82565; 82947; 83605; 83690; 85025; 85652; 86140; 87040; 99285; C1751; J0878; J1650; J2543; J3370

== ENCOUNTER 2023-03-09 18:26 | Outpatient (BNV) | payer MEDICARE, SELFPAY | END 2023-03-12 08:00 | PROVIDERS: Admitting Provider Registered Nurse; Emergency Provider Emergency Medicine; PCP Nurse Practitioner Family; Visit Provider Radiology Diagnostic Radiology | DX: M86.172 Other acute osteomyelitis, left ankle and foot (principal) | CPT/HCPCS: 36573 ==

== ENCOUNTER → 2023-03-09 18:26 | Outpatient (BNV) | payer MEDICARE, SELFPAY | PROVIDERS: Admitting Provider Registered Nurse; Emergency Provider Emergency Medicine; PCP Nurse Practitioner Family; Visit Provider Surgery | DX: M86.172 Other acute osteomyelitis, left ankle and foot (principal) | CPT/HCPCS: 99222 ==

== ENCOUNTER → 2023-03-09 18:26 | Outpatient (BNV) | payer MEDICARE, SELFPAY | PROVIDERS: Admitting Provider Registered Nurse; Emergency Provider Emergency Medicine; PCP Nurse Practitioner Family; Visit Provider Registered Nurse | DX: M86.172 Other acute osteomyelitis, left ankle and foot (principal); L03.116 Cellulitis of left lower limb; L08.9 Local infection of the skin and subcutaneous tissue, unspecified | CPT/HCPCS: 99223; 99233; 99239 ==

== ENCOUNTER 2023-03-15 10:28 | Outpatient (REF) | payer MEDICARE, SELFPAY | END 2023-03-15 10:29 | disposition home or self-care (01) | LOC: HO.MDS 10:28 | PROVIDERS: Visit Provider Internal Medicine | DX: M86.172 Other acute osteomyelitis, left ankle and foot (principal) | CPT/HCPCS: 96365; J0878 ==

== ENCOUNTER 2023-03-16 07:34 | Outpatient (REF) | payer MEDICARE, SELFPAY | END 2023-03-16 07:35 | disposition home or self-care (01) | LOC: HO.MDS 07:34 | PROVIDERS: PCP Nurse Practitioner Family; Visit Provider Internal Medicine | DX: M86.172 Other acute osteomyelitis, left ankle and foot (principal) | CPT/HCPCS: 96365; J0878 ==

== ENCOUNTER 2023-03-17 07:58 | Outpatient (REF) | payer MEDICARE, SELFPAY | END 2023-03-17 07:59 | disposition home or self-care (01) | LOC: HO.MDS 07:58 | PROVIDERS: Visit Provider Internal Medicine | DX: M86.9 Osteomyelitis, unspecified (principal) | CPT/HCPCS: 96365; J0878 ==

== ENCOUNTER 2023-03-18 07:50 | Outpatient (REF) | payer MEDICARE, SELFPAY | END 2023-03-18 07:51 | disposition home or self-care (01) | LOC: HO.MDS 07:50 | PROVIDERS: Visit Provider Internal Medicine | DX: M86.172 Other acute osteomyelitis, left ankle and foot (principal) | CPT/HCPCS: 96365; 99212; J0878 ==

== ENCOUNTER 2023-03-18 15:02 | Outpatient (AMB) | payer MEDICARE, SELFPAY ==
--- NOTE | 2023-03-18 15:07 | A.OFFVIS_ITS ---
Intake Vital Signs 03/18/23 15:20 Height 5 ft 10 in Weight 241 lb 2 oz BMI 34.6 BP 154/79 H Blood Pressure Location Lt brachial Position Sitting Pulse 68 Intake Visit Reasons: acute osteomyelitis left foot Intake Note: Patient is seen in office for follow up visit, following osteomyelitis of the left foot. Patient c/o: about a week ago left foot on the side got a blister a week later it pop been leaking since, went to urgent care and was told is infected, is getting antibiotics via IV, ankle is swollen, some pain, redness Pumper Helper Required: No Accompanied by: Self / Same As Patient Allergies No Known Allergies [No Known Allergies*] Allergy (Verified 03/18/23 15:20) Medication List - Last Reconciled 03/19/23 by Fausto Hadley MD allopurinol 100 mg PO DAILY 90 days [Glucosamine 1 tab PO DAILY] hydrochlorothiazide 12.5 mg PO DAILY lisinopril 40 mg PO DAILY multivitamin 1 tab PO DAILY omega 1-tjo-woq-fish oil 1,000 mg (120 mg-180 mg) (Fish Oil) 1 cap PO DAILY HPI HPI Comments History of Present Illness Details 67-year-old male patient recently admitted for treatment of a left 5th metatarsal wound found to have an area osteomyelitis. Patient decided to avoid surgery and requested starting antibiotics. He was started on IV antibiotics the plan of approximately 6 weeks of treatment. Since his discharge he denies any new come planes. He does have some swelling but has been walking his dog for approximately 1 mi daily. He is applying a dry dressing to the wound at least daily. Discharge has been decreasing. He denies fever or chills. [facility] Medical History Elevated TSH Gout HTN (hypertension) Obesity Paronychia of great toe Screening PSA (prostate specific antigen) Varicose veins of both lower extremities Surgical History History of amputation of left great toe (07/01/22) Hx of colonoscopy Hx of hand surgery Hx of vascular surgery Status post debridement (06/16/22) Family History Father HTN (hypertension) Mother Parkinsons disease Social History Household Members: None Housing: House Are you a primary childcare administrator to a significant other at home: No Do you presently have visiting nurse or other home services: No Alcohol intake: current Alcohol intake frequency: a few times a month Patient Tobacco Use Status: Never used Tobacco e-Cigarette/Vaping Use: Never Used Second Hand Smoke Exposure: No Advance Directives Date on File: 04/09/22 service: No Current occupational status: retired Cognitive needs: No Hearing needs: No Vision needs: No Review of Systems Const All systems reviewed & are unremarkable except as noted in HPI and below Physical Exam Vital Signs: Last Vital Signs Pulse 68 03/18/23 15:20 BP 154/79 H 03/18/23 15:20 BMI result Body Mass Index 34.6 Const General: comfortable Nutritional Appearance: well nourished Orientation/consciousness: patient oriented x3 Limitations: no limitations Resp Effort & Inspection: normal respiratory effort, no audible wheezes and no cough GI Inspection: Yes normal to inspection Skin General skin exam: no rashes or lesions noted Neuro General: patient oriented x3 Extrem Other: Open wound measuring approximately 4 mm noted in the lateral surface of the left foot with minimal erythema surrounding. There is no tenderness to palpation. Granulation tissue was noted at the base of the wound. No debridement is required at this time. Wounds were covered with silver alginate followed by dry sterile dressings. Assessment & Plan Assessment & Plan (1) Acute osteomyelitis of left foot: Code(s): M86.172 - Other acute osteomyelitis, left ankle and foot Plan 67-year-old male patient presenting with osteomyelitis involving the left foot with an open wound in the lateral 5th toe. I suggested starting the silver alginate on a daily basis and continue the daily dry sterile dressings. He should follow-up in approximately 2-3 weeks for wound check. He is welcome to call sooner for any new concerns. He will also continue the IV antibiotics on a daily basis. Coding Level of Care Code Est Pt Level 3 (71919) Diagnoses Acute osteomyelitis of left foot M86.172
[2023-03-18 15:20] VITALS: BP 154/79; PULSE 68; BMI 34.6
== END 2023-03-18 15:32 | disposition home or self-care (01) ==
PROVIDERS: PCP Nurse Practitioner Family; Visit Provider Surgery
DX: M86.172 Other acute osteomyelitis, left ankle and foot (principal)
CPT/HCPCS: 99213

== ENCOUNTER 2023-03-19 07:52 | Outpatient (REF) | payer MEDICARE, SELFPAY | END 2023-03-19 07:53 | disposition home or self-care (01) | LOC: HO.MDS 07:52 | PROVIDERS: Visit Provider Internal Medicine | DX: M86.172 Other acute osteomyelitis, left ankle and foot (principal) | CPT/HCPCS: 96365; J0878 ==

== ENCOUNTER 2023-03-20 07:46 | Outpatient (REF) | payer MEDICARE, SELFPAY | END 2023-03-20 07:47 | disposition home or self-care (01) | LOC: HO.MDS 07:46 | PROVIDERS: PCP Nurse Practitioner Family; Visit Provider Internal Medicine | DX: M86.9 Osteomyelitis, unspecified (principal) | CPT/HCPCS: 96365; J0878 ==

== ENCOUNTER 2023-03-21 09:41 | Outpatient (REF) | payer MEDICARE, SELFPAY | END 2023-03-21 09:42 | disposition home or self-care (01) | LOC: HO.MDS 09:41 | PROVIDERS: PCP Nurse Practitioner Family; Visit Provider Internal Medicine | DX: M86.9 Osteomyelitis, unspecified (principal) | CPT/HCPCS: 96365; J0878 ==

== ENCOUNTER 2023-03-22 07:55 | Outpatient (REF) | payer MEDICARE, SELFPAY ==
[2023-03-22 09:48] LABS: Anion Gap 14 (12-20); Blood Urea Nitrogen 26 mg/dL (9-16); Calcium 9.6 mg/dL (8.4-10.2); Carbon Dioxide 21 mmol/L (22-29); Chloride 106 mmol/L (96-108); Estimated Glomerular Filt Rate > 60; Glucose Random 102 mg/dL (60-115); Potassium 4.8 mmol/L (3.3-5.1); Sodium 136 mmol/L (135-145)
== END 2023-03-22 07:56 | disposition home or self-care (01) ==
LOC: HO.MDS 07:55
PROVIDERS: Visit Provider Internal Medicine
DX: M86.9 Osteomyelitis, unspecified (principal)
CPT/HCPCS: 36415; 80048; 82550; 96365; J0878

== ENCOUNTER 2023-03-23 07:53 | Outpatient (REF) | payer MEDICARE, SELFPAY | END 2023-03-23 07:54 | disposition home or self-care (01) | LOC: HO.MDS 07:53 | PROVIDERS: Visit Provider Internal Medicine | DX: M86.9 Osteomyelitis, unspecified (principal) | CPT/HCPCS: 96365; J0878 ==

== ENCOUNTER 2023-03-24 07:51 | Outpatient (REF) | payer MEDICARE, SELFPAY | END 2023-03-24 07:52 | disposition home or self-care (01) | LOC: HO.MDS 07:51 | PROVIDERS: Visit Provider Internal Medicine | DX: M86.9 Osteomyelitis, unspecified (principal) | CPT/HCPCS: 96365; J0878 ==

== ENCOUNTER 2023-03-25 07:56 | Outpatient (REF) | payer MEDICARE, SELFPAY | END 2023-03-25 07:57 | disposition home or self-care (01) | LOC: HO.MDS 07:56 | PROVIDERS: Visit Provider Internal Medicine | DX: M86.9 Osteomyelitis, unspecified (principal) | CPT/HCPCS: 96365; J0878 ==

== ENCOUNTER 2023-03-26 07:48 | Outpatient (REF) | payer MEDICARE, SELFPAY | END 2023-03-26 07:49 | disposition home or self-care (01) | LOC: HO.MDS 07:48 | PROVIDERS: Visit Provider Internal Medicine | DX: M86.9 Osteomyelitis, unspecified (principal) | CPT/HCPCS: 96365; J0878 ==

== ENCOUNTER 2023-03-27 09:50 | Outpatient (REF) | payer MEDICARE, SELFPAY | END 2023-03-27 09:51 | disposition home or self-care (01) | LOC: HO.MDS 09:50 | PROVIDERS: PCP Nurse Practitioner Family; Visit Provider Internal Medicine | DX: M86.9 Osteomyelitis, unspecified (principal) | CPT/HCPCS: 96365; J0878 ==

== ENCOUNTER 2023-03-28 09:50 | Outpatient (REF) | payer MEDICARE, SELFPAY | END 2023-03-28 09:51 | disposition home or self-care (01) | LOC: HO.MDS 09:50 | PROVIDERS: Visit Provider Internal Medicine | DX: M86.9 Osteomyelitis, unspecified (principal) | CPT/HCPCS: 96365; J0878 ==

== ENCOUNTER 2023-03-29 07:51 | Outpatient (REF) | payer MEDICARE, SELFPAY | END 2023-03-29 07:52 | disposition home or self-care (01) | LOC: HO.MDS 07:51 | PROVIDERS: Visit Provider Internal Medicine | DX: M86.9 Osteomyelitis, unspecified (principal) | CPT/HCPCS: 96365; J0878 ==

== ENCOUNTER 2023-03-30 07:45 | Outpatient (REF) | payer MEDICARE, SELFPAY ==
[2023-03-30 09:24] LABS: Anion Gap 11 (12-20); Blood Urea Nitrogen 24 mg/dL (9-16); Calcium 9.8 mg/dL (8.4-10.2); Carbon Dioxide 24 mmol/L (22-29); Chloride 106 mmol/L (96-108); Estimated Glomerular Filt Rate > 60; Glucose Random 105 mg/dL (60-115); Potassium 4.9 mmol/L (3.3-5.1); Sodium 136 mmol/L (135-145)
== END 2023-03-30 07:46 | disposition home or self-care (01) ==
LOC: HO.MDS 07:45
PROVIDERS: Visit Provider Internal Medicine
DX: M86.9 Osteomyelitis, unspecified (principal)
CPT/HCPCS: 36415; 80048; 82550; 96365; J0878

== ENCOUNTER 2023-03-31 07:46 | Outpatient (REF) | payer MEDICARE, SELFPAY | END 2023-03-31 07:47 | disposition home or self-care (01) | LOC: HO.MDS 07:46 | PROVIDERS: Visit Provider Internal Medicine | DX: M86.9 Osteomyelitis, unspecified (principal) | CPT/HCPCS: 96365; J0878 ==

== ENCOUNTER 2023-04-01 07:52 | Outpatient (REF) | payer MEDICARE, SELFPAY | END 2023-04-01 07:53 | disposition home or self-care (01) | LOC: HO.MDS 07:52 | PROVIDERS: Visit Provider Internal Medicine | DX: M86.9 Osteomyelitis, unspecified (principal); R73.01 Impaired fasting glucose; R79.89 Other specified abnormal findings of blood chemistry | CPT/HCPCS: 36415; 80053; 80061; 81003; 84443; 85025; 86376; 96365; J0878 ==

== ENCOUNTER 2023-04-01 09:21 | Outpatient (REF) | payer MEDICARE, SELFPAY ==
[2023-04-01 11:17] LABS: MANUAL DIFF FLAG NO
[2023-04-01 11:36] LABS: Basophils Absolute Auto 0.1 X10*3/uL (0.0-0.2); Basophils Percent Auto 0.7 % (0-2); Eosinophils Absolute Auto 0.6 X10*3/uL (0.0-0.4); Imm Gran Abs Auto 0.04 X10*3/uL (0.00-0.03); Imm Gran Pct Auto 0.4 % (0.0-0.4); Lymphocytes Absolute Auto 1.1 X10*3/uL (1.2-4.9); Lymphocytes Percent Auto 10.4 % (20-40); Mean Corpuscular HGB Conc 34.8 g/dl (31.0-36.0); Mean Corpuscular Hemoglobin 33.8 pg (27.0-33.0); Mean Platelet Volume 10.9 fL (9.4-12.4); Neutrophils Absolute Auto 7.8 x10*3/uL (2.0-8.3); Neutrophils Percent Auto 73.5 % (45-73); Platelet Count 282 X10*3/uL (160-400); Red Blood Count 4.74 X10*6/uL (4.60-5.80); Red Cell Distribution Width 13.4 % (11.0-16.0); White Blood Count 10.6 X10*3/uL (4.8-10.8)
[2023-04-01 11:54] LABS: Appearance Urine Clear; Color Urine Yellow; Glucose Urine UA Negative (Negative); Leukocyte Esterase Urine Negative (Negative); Nitrite Urine Negative (Negative); PH 5.5 (5.0-9.0); Specific Gravity - Urine <= 1.005 (1.005-1.025); Urine Blood Negative (Negative); Urine Ketones Negative (Negative); Urine Protein Negative (Neg-Trace)
[2023-04-01 11:55] LABS: Alanine Aminotransferase 14 U/L (0-40); Albumin Level 4.1 g/dL (3.5-5.0); Alkaline Phosphatase 95 U/L (39-117); Anion Gap 13 (12-20); Aspartate Amino Transferase 17 U/L (5-37); Bilirubin Total 1.6 mg/dL (0.0-1.0); Blood Urea Nitrogen 21 mg/dL (9-16); Calcium 10.5 mg/dL (8.4-10.2); Carbon Dioxide 26 mmol/L (22-29); Chloride 103 mmol/L (96-108); Cholesterol 223 mg/dL; Estimated Glomerular Filt Rate > 60; Glucose Fasting 109 mg/dL (60-99); HDL Cholesterol 40 mg/dL; LDL Cholesterol Calculated 156 mg/dl; Potassium 4.9 mmol/L (3.3-5.1); Sodium 137 mmol/L (135-145); Total Protein 8.4 g/dL (6.5-8.0); Triglycerides 137 mg/dL
[2023-04-01 12:13] LABS: TSH reflex Free T4 2.55 uIU/mL (0.32-4.0)
[2023-04-02 05:59] LABS: Thyroid Peroxidase Antibodies <1 IU/mL (<9)
== END 2023-04-01 09:22 | disposition home or self-care (01) ==
LOC: HO.HMGCLDS 09:21
PROVIDERS: PCP Nurse Practitioner Family; Visit Provider Nurse Practitioner Family
DX: Z13.89 Encounter for screening for other disorder (principal)
CPT/HCPCS: 36415; 80053; 80061; 81003; 84443; 85025; 86376

== ENCOUNTER 2023-04-02 07:51 | Outpatient (REF) | payer MEDICARE, SELFPAY | END 2023-04-02 07:52 | disposition home or self-care (01) | LOC: HO.MDS 07:51 | PROVIDERS: Visit Provider Internal Medicine | DX: M86.9 Osteomyelitis, unspecified (principal) | CPT/HCPCS: 96365; J0878 ==

== ENCOUNTER 2023-04-03 09:44 | Outpatient (REF) | payer MEDICARE, SELFPAY | END 2023-04-03 09:45 | disposition home or self-care (01) | LOC: HO.MDS 09:44 | PROVIDERS: PCP Nurse Practitioner Family; Visit Provider Internal Medicine | DX: M86.9 Osteomyelitis, unspecified (principal) | CPT/HCPCS: 96374; J0878 ==

== ENCOUNTER 2023-04-04 09:34 | Outpatient (REF) | payer MEDICARE, SELFPAY | END 2023-04-04 09:35 | disposition home or self-care (01) | LOC: HO.MDS 09:34 | PROVIDERS: PCP Nurse Practitioner Family; Visit Provider Internal Medicine | DX: M86.9 Osteomyelitis, unspecified (principal) | CPT/HCPCS: 96365; J0878 ==

== ENCOUNTER 2023-04-05 07:52 | Outpatient (REF) | payer MEDICARE, SELFPAY | END 2023-04-05 07:53 | disposition home or self-care (01) | LOC: HO.MDS 07:52 | PROVIDERS: Visit Provider Internal Medicine | DX: M86.9 Osteomyelitis, unspecified (principal) | CPT/HCPCS: 96365; J0878 ==

== ENCOUNTER 2023-04-06 07:44 | Outpatient (REF) | payer MEDICARE, SELFPAY ==
[2023-04-06 09:18] LABS: Anion Gap 11 (12-20); Blood Urea Nitrogen 31 mg/dL (9-16); Calcium 10.1 mg/dL (8.4-10.2); Carbon Dioxide 22 mmol/L (22-29); Chloride 107 mmol/L (96-108); Estimated Glomerular Filt Rate > 60; Glucose Random 114 mg/dL (60-115); Potassium 5.3 mmol/L (3.3-5.1); Sodium 135 mmol/L (135-145)
== END 2023-04-06 07:45 | disposition home or self-care (01) ==
LOC: HO.MDS 07:44
PROVIDERS: Visit Provider Internal Medicine
DX: M86.9 Osteomyelitis, unspecified (principal)
CPT/HCPCS: 36415; 80048; 82550; 96365; J0878

== ENCOUNTER 2023-04-07 07:47 | Outpatient (REF) | payer MEDICARE, SELFPAY | END 2023-04-07 07:48 | disposition home or self-care (01) | LOC: HO.MDS 07:47 | PROVIDERS: Visit Provider Internal Medicine | DX: M86.9 Osteomyelitis, unspecified (principal) | CPT/HCPCS: 36415; 80051; 96365; J0878 ==

== ENCOUNTER 2023-04-07 09:13 | Outpatient (AMB) | payer MEDICARE, SELFPAY ==
[2023-04-07 09:26] VITALS: BP 110/70; PULSE 63; O2SAT 99; BMI 33.8
--- NOTE | 2023-04-07 09:26 | MHC.PC.OV ---
Vital Signs 04/07/23 09:26 Height 5 ft 10 in Weight 235 lb 8 oz BMI 33.8 BP 110/70 Blood Pressure Location Lt brachial Position Sitting Pulse 63 Pulse Source Pulse Oximeter Pulse Oximetry (%) 99 Oxygen Delivery Method Room Air Intake Visit Reasons: 6 Month follow up Allergies No Known Allergies [No Known Allergies*] Allergy (Verified 04/07/23 09:28) Tobacco use date assessed: 04/07/23 Fall risk assessment: No Falls in past year Last assessed Fall Risk: 04/07/23 Dental Screening Dental Screen Date: 04/07/23 Did you have a dental visit in the last 12 months?: Yes Did you have a dental problem in the last 6 months where you did not have access to dental care?: No Was dental information given to patient?: Patient has dentist HPI 6 Month follow up HPI Details Pt was seen in the ER on 03/09 after being sent from the walk-in with an infection/ulcer of the left foot. XR was concerning for acute periarticular osteomyelitis at the 5th metatarsophalangeal joint -see report for full details. Labs showed ESR 40, BUN/creatinine 19/0.90, fasting glucose 125, CRP 1.41, total protein 8.3, lactic acid 0.9. Pt was started on fluids, vancomycin, and zosyn. He was seen by surgery who recommended IV antibiotics for 6 weeks. Pt's wound was improving with antibiotics. Blood cultures were negative. PICC line was placed for IV Daptomycin. Pt is following up with general surgery tomorrow. Pt is going for IV antibiotics every day (daptomycin 650mg), he will finish these on 04/20. Denies any fever, chills, and dizziness. Pt's potassium was previously elevated, will repeat electrolytes. [facility] Medical History Elevated TSH Gout HTN (hypertension) Obesity Paronychia of great toe Screening PSA (prostate specific antigen) Varicose veins of both lower extremities Surgical History History of amputation of left great toe (07/01/22) Hx of colonoscopy Hx of hand surgery Hx of vascular surgery Status post debridement (06/16/22) Family History Father HTN (hypertension) Mother Parkinsons disease Social History Household Members: None Housing: House Are you a primary hearing healthcare practitioner to a significant other at home: No Do you presently have visiting nurse or other home services: No Alcohol intake: current Alcohol intake frequency: a few times a month Patient Tobacco Use Status: Never used Tobacco e-Cigarette/Vaping Use: Never Used Second Hand Smoke Exposure: No Advance Directives Date on File: 04/09/22 service: No Current occupational status: retired Cognitive needs: No Hearing needs: No Vision needs: No Questionnaire Thrive Questionnaire Date Thrive assessed: 03/10/23 YONATAN-7 AMB Questionnaire YONATAN-7 Date YONATAN - 7 assessed: 07/20/22 Source: Developed by Drs. Ranjan Brambila, Tracy Schneider, Angel Best and colleagues, with an educational gabriel from [employer]. Review of Systems Const Reports as per HPI Physical exam (Primary Care) Vital Signs: Last Vital Signs Pulse 63 04/07/23 09:26 BP 110/70 04/07/23 09:26 Pulse Ox 99 04/07/23 09:26 Oxygen Delivery Method Room Air 04/07/23 09:26 BMI result Body Mass Index 33.8 Tobacco/Smoking Status: Tobacco use Status Tobacco use date assessed 04/07/23 04/07/23 09:31 Patient Tobacco Use Status Never used Tobacco 04/07/23 09:31 e-Cigarette/Vaping Use Never Used 04/07/23 09:31 Thrive Assessment: Date of Thrive Assessment Date Thrive assessed 03/10/23 04/07/23 09:31 Const General: cooperative Nutritional Appearance: obese Orientation/consciousness: patient oriented x3 Neuro General: patient oriented x3 Extrem Other: left foot lateral anterior aspect wound with scabbed lesion, posterior to that with open wound draining small amount of tannish colored drainage, not TTP, amputated 1st toe of left foot, PICC line to RUE, no signs of infection, dressing CDI Psych Appearance: grossly normal Mental Status: mental status grossly normal Speech and movement: Normal speech and movement present Affect: normal affect Attitude: cooperative Thought process: Normal thought process present Thought content: Normal thought content present Insight: Good insight present (Psych) Judgement: Good judgement present (Psych) Assessment and Plan Assessment & Plan (1) Hyperkalemia: Code(s): E87.5 - Hyperkalemia Plan: Labs ordered (2) Acute osteomyelitis of left foot: Code(s): M86.172 - Other acute osteomyelitis, left ankle and foot Plan The patient agreed to the use of a medical insurance claims specialist for this encounter. Scribed for MAURILIO Fung by Lisset Funez medical insurance claims specialist, on 04/07/2023 at 09:35 EST. Orders: Orders Electrolytes Today E87.5 - Hyperkalemia Coding Level of Care Code Est Pt Level 3 (64684) Diagnoses Hyperkalemia E87.5 Acute osteomyelitis of left foot M86.172
== END 2023-04-07 10:00 | disposition home or self-care (01) ==
PROVIDERS: Visit Provider Nurse Practitioner Family
DX: E87.5 Hyperkalemia (principal); M86.172 Other acute osteomyelitis, left ankle and foot
CPT/HCPCS: 99213

== ENCOUNTER 2023-04-07 10:01 | Outpatient (REF) | payer MEDICARE, SELFPAY ==
[2023-04-07 14:07] LABS: Anion Gap 14 (12-20); Carbon Dioxide 23 mmol/L (22-29); Chloride 104 mmol/L (96-108); Potassium 4.5 mmol/L (3.3-5.1); Sodium 136 mmol/L (135-145)
== END 2023-04-07 10:02 | disposition home or self-care (01) ==
LOC: HO.HMGCLDS 10:01
PROVIDERS: PCP Nurse Practitioner Family; Visit Provider Nurse Practitioner Family
DX: Z13.89 Encounter for screening for other disorder (principal)
CPT/HCPCS: 36415; 80051

== ENCOUNTER 2023-04-08 07:54 | Outpatient (REF) | payer MEDICARE, SELFPAY | END 2023-04-08 07:55 | disposition home or self-care (01) | LOC: HO.MDS 07:54 | PROVIDERS: Visit Provider Internal Medicine | DX: M86.9 Osteomyelitis, unspecified (principal) | CPT/HCPCS: 96365; 99212; J0878 ==

== ENCOUNTER 2023-04-08 10:29 | Outpatient (AMB) | payer MEDICARE, SELFPAY ==
--- NOTE | 2023-04-08 10:34 | MHC.OFFVIS ---
Intake Vital Signs 04/08/23 10:41 Height 5 ft 10 in Weight 236 lb 6 oz BMI 33.9 BP 117/56 L Blood Pressure Location Lt brachial Position Sitting Pulse 72 Intake Visit Reasons: 3 wk follow up osteo left foot Intake Note: Patient is seen in office for 3 wks follow up visit, following osteomyelitis of the left foot. Patient c/o: admits to healing as expected, changing dressing twice a day, denies redness or other concerns Technical Director Required: No Accompanied by: Self / Same As Patient Allergies No Known Allergies [No Known Allergies*] Allergy (Verified 04/08/23 10:40) Medication List - Last Reconciled 04/08/23 by Fausto Hadley MD allopurinol 100 mg PO DAILY 90 days [Glucosamine 1 tab PO DAILY] hydrochlorothiazide 12.5 mg PO DAILY lisinopril 40 mg PO DAILY multivitamin 1 tab PO DAILY omega 3-dlz-zoh-fish oil 1,000 mg (120 mg-180 mg) (Fish Oil) 1 cap PO DAILY HPI HPI Comments History of Present Illness Details 67-year-old male patient recently admitted for treatment of a left 5th metatarsal wound found to have an area osteomyelitis. Patient decided to avoid surgery and requested starting antibiotics. He was started on IV antibiotics the plan of approximately 6 weeks of treatment. He continues with the IV antibiotics and is tolerating this well. Overall feels much improved with decreased drainage decreased size of the wound noted. Feels the swelling is much improved as well. Dressings have been changed twice daily. He denies fever or chills. [facility] Medical History Elevated TSH Gout HTN (hypertension) Obesity Paronychia of great toe Screening PSA (prostate specific antigen) Varicose veins of both lower extremities Surgical History History of amputation of left great toe (07/01/22) Hx of colonoscopy Hx of hand surgery Hx of vascular surgery Status post debridement (06/16/22) Family History Father HTN (hypertension) Mother Parkinsons disease Social History Household Members: None Housing: House Are you a primary health care technician to a significant other at home: No Do you presently have visiting nurse or other home services: No Alcohol intake: current Alcohol intake frequency: a few times a month Patient Tobacco Use Status: Never used Tobacco e-Cigarette/Vaping Use: Never Used Second Hand Smoke Exposure: No Advance Directives Date on File: 04/09/22 service: No Current occupational status: retired Cognitive needs: No Hearing needs: No Vision needs: No Review of Systems Const All systems reviewed & are unremarkable except as noted in HPI and below Physical Exam Vital Signs: Last Vital Signs Pulse 72 04/08/23 10:41 BP 117/56 L 04/08/23 10:41 BMI result Body Mass Index 33.9 Const General: comfortable Nutritional Appearance: well nourished Orientation/consciousness: patient oriented x3 Limitations: no limitations Resp Effort & Inspection: normal respiratory effort, no audible wheezes and no cough GI Inspection: Yes normal to inspection Skin General skin exam: no rashes or lesions noted Neuro General: patient oriented x3 Extrem Other: Open wound measuring in the left lateral foot is much improved and appears much more shallow approximately 1 mm wide. Dry sterile dressing was applied. No erythema is appreciated. No underlying abscess cavity is appreciated. Assessment & Plan Assessment & Plan (1) Acute osteomyelitis of left foot: Code(s): M86.172 - Other acute osteomyelitis, left ankle and foot Plan Overall patient is much improved with the IV antibiotics. He still has another several weeks of antibiotics to go and showing marked improvement. He will follow up in 1 month for repeat examination. He is welcome to call sooner for any new concerns. Coding Level of Care Code Est Pt Level 3 (31619) Diagnoses Acute osteomyelitis of left foot M86.172
[2023-04-08 10:41] VITALS: BP 117/56; PULSE 72; BMI 33.9
== END 2023-04-08 10:48 | disposition home or self-care (01) ==
PROVIDERS: PCP Nurse Practitioner Family; Visit Provider Surgery
DX: M86.172 Other acute osteomyelitis, left ankle and foot (principal)
CPT/HCPCS: 99213

== ENCOUNTER 2023-04-09 07:49 | Outpatient (REF) | payer MEDICARE, SELFPAY | END 2023-04-09 07:50 | disposition home or self-care (01) | LOC: HO.MDS 07:49 | PROVIDERS: Visit Provider Internal Medicine | DX: M86.9 Osteomyelitis, unspecified (principal) | CPT/HCPCS: 96365; J0878 ==

== ENCOUNTER 2023-04-10 09:47 | Outpatient (REF) | payer MEDICARE, SELFPAY | END 2023-04-10 09:48 | disposition home or self-care (01) | LOC: HO.MDS 09:47 | PROVIDERS: Visit Provider Internal Medicine | DX: M86.9 Osteomyelitis, unspecified (principal) | CPT/HCPCS: 96365; J0878 ==

== ENCOUNTER 2023-04-11 09:50 | Outpatient (REF) | payer MEDICARE, SELFPAY | END 2023-04-11 09:51 | disposition home or self-care (01) | LOC: HO.MDS 09:50 | PROVIDERS: Visit Provider Internal Medicine | DX: M86.9 Osteomyelitis, unspecified (principal) | CPT/HCPCS: 96365; J0878 ==

== ENCOUNTER 2023-04-12 07:53 | Outpatient (REF) | payer MEDICARE, SELFPAY | END 2023-04-12 07:54 | disposition home or self-care (01) | LOC: HO.MDS 07:53 | PROVIDERS: Visit Provider Internal Medicine | DX: M86.9 Osteomyelitis, unspecified (principal) | CPT/HCPCS: 96365; J0878 ==

== ENCOUNTER 2023-04-13 07:50 | Outpatient (REF) | payer MEDICARE, SELFPAY ==
[2023-04-13 09:02] LABS: Anion Gap 10 (12-20); Blood Urea Nitrogen 24 mg/dL (9-16); Carbon Dioxide 23 mmol/L (22-29); Chloride 108 mmol/L (96-108); Estimated Glomerular Filt Rate > 60; Glucose Random 115 mg/dL (60-115); Potassium 5.2 mmol/L (3.3-5.1); Sodium 136 mmol/L (135-145)
== END 2023-04-13 07:51 | disposition home or self-care (01) ==
LOC: HO.MDS 07:50
PROVIDERS: Visit Provider Internal Medicine
DX: M86.9 Osteomyelitis, unspecified (principal)
CPT/HCPCS: 36415; 80048; 82550; 96365; J0878

== ENCOUNTER 2023-04-14 07:56 | Outpatient (REF) | payer MEDICARE, SELFPAY | END 2023-04-14 07:57 | disposition home or self-care (01) | LOC: HO.MDS 07:56 | PROVIDERS: Visit Provider Internal Medicine | DX: M86.9 Osteomyelitis, unspecified (principal) | CPT/HCPCS: 96365; J0878 ==

== ENCOUNTER 2023-04-15 07:48 | Outpatient (REF) | payer MEDICARE, SELFPAY | END 2023-04-15 07:49 | disposition home or self-care (01) | LOC: HO.MDS 07:48 | PROVIDERS: Visit Provider Internal Medicine | DX: M86.9 Osteomyelitis, unspecified (principal) | CPT/HCPCS: 96365; J0878 ==

== ENCOUNTER 2023-04-16 07:53 | Outpatient (REF) | payer MEDICARE, SELFPAY | END 2023-04-16 07:54 | disposition home or self-care (01) | LOC: HO.MDS 07:53 | PROVIDERS: Visit Provider Internal Medicine | DX: M86.9 Osteomyelitis, unspecified (principal) | CPT/HCPCS: 96365; J0878 ==

== ENCOUNTER 2023-04-17 09:49 | Outpatient (REF) | payer MEDICARE, SELFPAY | END 2023-04-17 09:50 | disposition home or self-care (01) | LOC: HO.MDS 09:49 | PROVIDERS: PCP Nurse Practitioner Family; Visit Provider Internal Medicine | DX: M86.9 Osteomyelitis, unspecified (principal) | CPT/HCPCS: 96365; J0878 ==

== ENCOUNTER 2023-04-18 09:52 | Outpatient (REF) | payer MEDICARE, SELFPAY | END 2023-04-18 09:53 | disposition home or self-care (01) | LOC: HO.MDS 09:52 | PROVIDERS: PCP Nurse Practitioner Family; Visit Provider Internal Medicine | DX: M86.9 Osteomyelitis, unspecified (principal) | CPT/HCPCS: 96365; J0878 ==

== ENCOUNTER 2023-04-19 09:51 | Outpatient (REF) | payer MEDICARE, SELFPAY ==
--- NOTE | 2023-04-20 08:51 | HO.REMOVAL ---
Removal of PICC/Midline Removal of PICC/Midline: Removal of PICC: 1. Date: 04/20/2023 2. Reason removed: Finished with antibiotic per MD order 3. Inserted length: 42 cm 4. Removed length: 42 cm 5. A dressing was placed over the site upon removal. No edema or bleeding at the site.
== END 2023-04-19 09:52 | disposition home or self-care (01) ==
LOC: HO.MDS 09:51
PROVIDERS: PCP Nurse Practitioner Family; Visit Provider Internal Medicine
DX: M86.9 Osteomyelitis, unspecified (principal)
CPT/HCPCS: 96365; J0878

== ENCOUNTER 2023-04-20 07:57 | Outpatient (REF) | payer MEDICARE, SELFPAY | END 2023-04-20 07:58 | disposition home or self-care (01) | LOC: HO.MDS 07:57 | PROVIDERS: Visit Provider Internal Medicine | DX: M86.9 Osteomyelitis, unspecified (principal) | CPT/HCPCS: 96365; J0878 ==

== ENCOUNTER 2023-05-11 09:07 | Outpatient (AMB) | payer MEDICARE, SELFPAY ==
[2023-05-11 09:21] VITALS: BP 122/70; BMI 34.1
--- NOTE | 2023-05-11 09:21 | MHC.OFFVIS ---
Intake Vital Signs 05/11/23 09:21 Height 5 ft 10 in Weight 237 lb 10.533 oz BMI 34.1 BP 122/70 Blood Pressure Location Lt brachial Position Sitting Intake Visit Reasons: 1 mth follow up osteo left foot Intake Note: Patient is seen in office for one month follow up visit, following osteo of the left foot. Patient c/o: denies any concerns at the time of visit Fire Watchman Required: No Accompanied by: Self / Same As Patient Allergies No Known Allergies [No Known Allergies*] Allergy (Verified 05/11/23 09:24) HPI HPI Comments History of Present Illness Details 67-year-old male patient returning for follow-up evaluation of the left 5th metatarsal wound found to have an area osteomyelitis. Patient decided to avoid surgery and requested starting antibiotics. He has now completed his 6 weeks of IV antibiotics and feels well. He denies any continued ulceration, bleeding or discharge. He no longer requires a dressing the wound. [facility] Medical History Paronychia of great toe Elevated TSH Gout Obesity Screening PSA (prostate specific antigen) HTN (hypertension) Varicose veins of both lower extremities Surgical History History of amputation of left great toe (07/01/22) Hx of hand surgery Status post debridement (06/16/22) Hx of vascular surgery Hx of colonoscopy Family History Father HTN (hypertension) Mother Parkinsons disease Social History Household Members: None Housing: House Are you a primary care management associate to a significant other at home: No Do you presently have visiting nurse or other home services: No Alcohol intake: current Alcohol intake frequency: a few times a month Patient Tobacco Use Status: Never used Tobacco e-Cigarette/Vaping Use: Never Used Second Hand Smoke Exposure: No Advance Directives Date on File: 04/09/22 service: No Current occupational status: retired Cognitive needs: No Hearing needs: No Vision needs: No Review of Systems Const All systems reviewed & are unremarkable except as noted in HPI and below Physical Exam Vital Signs: Last Vital Signs BP 122/70 05/11/23 09:21 BMI result Body Mass Index 34.1 Const General: comfortable Nutritional Appearance: well nourished Orientation/consciousness: patient oriented x3 Limitations: no limitations Resp Effort & Inspection: normal respiratory effort, no audible wheezes and no cough GI Inspection: Yes normal to inspection Skin General skin exam: no rashes or lesions noted Neuro General: patient oriented x3 Extrem Other: Left lateral foot wound is now completely healed without ulceration, discharge or erythema. Great toe incision is also clean and intact. No new ulceration is identified. Assessment & Plan Assessment & Plan (1) Acute osteomyelitis of left foot: Code(s): M86.172 - Other acute osteomyelitis, left ankle and foot Plan Patient returns for final evaluation of his left foot. He has completed the IV antibiotics and his wounds are now well healed. He should continue to monitor his feet on a daily basis and call for any new concerns. Coding Level of Care Code Est Pt Level 3 (65786) Diagnoses Acute osteomyelitis of left foot M86.172
== END 2023-05-11 09:29 | disposition home or self-care (01) ==
PROVIDERS: PCP Nurse Practitioner Family; Visit Provider Surgery
DX: M86.172 Other acute osteomyelitis, left ankle and foot (principal)
CPT/HCPCS: 99213

== ENCOUNTER → 2023-05-11 09:07 | Outpatient (BNVA) | payer MEDICARE, SELFPAY | PROVIDERS: PCP Nurse Practitioner Family; Visit Provider Surgery | DX: M86.172 Other acute osteomyelitis, left ankle and foot (principal) | CPT/HCPCS: 99212 ==

== ENCOUNTER 2023-10-04 08:56 | Outpatient (AMB) | payer MEDICARE, SELFPAY ==
[2023-10-04 08:59] VITALS: BP 130/72; PULSE 62; O2SAT 97; BMI 34.4
--- NOTE | 2023-10-04 08:59 | AM.OFFVISMDC ---
Intake Vital Signs 10/04/23 08:59 Height 5 ft 10 in Weight 240 lb BMI 34.4 BP 130/72 Blood Pressure Location Lt brachial Position Sitting Pulse 62 Pulse Source Pulse Oximeter Pulse Oximetry (%) 97 Oxygen Delivery Method Room Air Intake Visit Reasons: SWV G0439 Intake Note: pt is here for MWV visit, pt denies any issues or concerns for this visit. patients last colonoscopy was at age 63 ad patient is due back for report at age 73 Bulb Inspector Required: No Accompanied by: Self / Same As Patient Allergies No Known Allergies [No Known Allergies*] Allergy (Verified 10/04/23 08:59) Medication List - Last Reconciled 10/04/23 by Fausto Pat, JOURNEYMAN LINEMAN- allopurinol 100 mg PO DAILY 90 days [Glucosamine 1 tab PO DAILY] hydrochlorothiazide 12.5 mg PO DAILY multivitamin 1 tab PO DAILY omega 0-pin-oqj-fish oil 1,000 mg (120 mg-180 mg) (Fish Oil) 1 cap PO DAILY Do you need a note to return to daycare/school/sports/work: No HPI SWV G0439 HPI Details Pt is here for an SWV. Denies fever, chills, and dizziness. [place] of care in scan pile, though not filled out. PPP will be scanned in chart and copy will be given to pt. refuses all vaccines HPI Comments History of Present Illness Details Pt has a hx of dyslipidemia. He is currently taking fish oil. Will order labs. Due for PSA, will order. Denies dribbling with urination, weak stream, and frequent nocturia. [facility] Medical History Paronychia of great toe Elevated TSH Gout Obesity Screening PSA (prostate specific antigen) HTN (hypertension) Varicose veins of both lower extremities Surgical History History of amputation of left great toe (07/01/22) Hx of hand surgery Status post debridement (06/16/22) Hx of vascular surgery Hx of colonoscopy Family History Father HTN (hypertension) Mother Parkinsons disease Social History Household Members: None Housing: House Are you a primary vocational childcare teacher to a significant other at home: No Do you presently have visiting nurse or other home services: No Alcohol intake: current Alcohol intake frequency: a few times a month Patient Tobacco Use Status: Never used Tobacco e-Cigarette/Vaping Use: Never Used Second Hand Smoke Exposure: No Advance Directives Date on File: 04/09/22 service: No Current occupational status: retired Cognitive needs: No Hearing needs: No Vision needs: No Questionnaire Medicare Wellness Checkup [age] What gender do you identify with?: male During the past 4 weeks, how much have you been bothered by emotional problems such as feeling anxious, depressed, irritable, sad or downhearted, and blue?: not at all During the past 4 weeks, has your physical & emotional health limited your social activities with family, friends, neighbors, or groups?: not at all During the past 4 weeks, how much bodily pain have you generally had?: no pain During the past 4 weeks, was someone available to help you if you needed & wanted help?: yes, as much as I wanted During the past 4 weeks, what was the hardest physical activity you could do for at least 2 minutes?: very heavy Can you get to places out of walking distance without help? (For eg., can you travel alone on buses, taxis or drive your car?): Yes Can you go shopping for groceries or clothes without someone's help?: Yes Can you prepare your own meals?: Yes Can you do your housework without help?: Yes Because of any health problems, do you need the help of another person with your personal care needs such as eating, bathing, dressing or getting around the house?: Yes Can you handle your own money without help?: Yes During the past 4 weeks, how would you rate your health in general?: excellent During the past 4 weeks how have things been going for you?: very well; could hardly better Are you having difficulties driving your car?: no Do you always fasten your seat belt when you are in a car?: yes, usually During past 4 weeks, have you been bothered by the following: never: Falling or dizzy when standing up, Sexual problems?, Trouble eating well?, Teeth or denture problems?, Problems using the telephone? and Tiredness or fatigue? Have you fallen 2 or more times in the past year?: No Are you afraid of falling?: No Are you a smoker?: no During the past 4 weeks, how many drinks of wine, beer, or other alcoholic beverages did you have?: 2-5 drinks per week Do you exercise for about 20 minutes 3 or more times a week?: yes, most of the time Have you been given information to help with the following?: no: Hazards in your house that might hurt you? and no: Keeping track of your medications? How often do you have trouble taking medicines the way you have been told to take them?: I always take medicine as prescribed How confident are you that you can control & manage most of your health problems?: very confident What is your race?: White Mini Mental State Exam (MMSE) Orientation What is the (year) (season) (date) (day) (month)?: year (2023) Where are we (state) (county) (town or city) (hospital) (floor[place] state ([place] Registration Name of 3 unrelated objects clearly and slowly, then ask patient to repeat all 3 of them. (1st repeat determines score. Make sure they can repeat all three): object 1, object 2 and object 3 Attention & Calculation (CHOOSE ONE) Spell WORLD backwards (DLROW): 0 letters Recall Ask patient to repeat the 3 items from question #3.: object 1, object 2 and object 3 Language Show patient a wristwatch & ask what it is. Repeat for pencil.: watch and pencil Ask the patient to repeat the phrase 'No ifs, ands, or buts' after you.: correct Ask the patient to 'take a piece of paper with their right hand' 'fold paper in half' 'place paper on floor': take paper in right hand, fold paper in half and place paper on floor Print the sentence 'CLOSE YOUR EYES' on a piece. If patient actually closes eyes then score.: followed written direction Give patient a blank piece of paper & ask to write a sentence. Score if it contains a noun & verb.: sentence contains subject and verb Ask patient to copy figure of intersecting pentagons exactly. Score if all 10 angles & 2 intersects are included.: all 10 angles present & 2 are intersected Score Score: 17 Activity of Daily Living Bathing - sponge bath, tub bath or shower: receives no assistance (gets in/out by self, if usual bathing means Dressing - getting clothes from closets & drawers, including inner/outer garments & fasteners.: gets clothes & gets completely dressed without help Toileting - going to the 'toilet room' for urine/bowel elimination & cleaning self/arranging clothes: goes to toilet room, cleans self, arranges clothes without help Transfer: moves in & out of bed and chair without help (may use support object) Feeding: feeds self without help Total Score: 0 Information obtained from: patient Using telephone: independent Traveling: independent Shopping: independent Preparing meals: independent Housework: independent Taking medicine: independent Managing money: independent PHQ-9 Over the last 2 weeks, how often have you been bothered by any of the following problems? 1. Little interest or pleasure in doing things: not at all 2. Feeling down, depressed, or hopeless: not at all 3. Trouble falling or staying asleep, or sleeping too much: not at all 4. Feeling tired or having little energy: not at all 5. Poor appetite or overeating: not at all 6. Feeling bad about yourself - or that you are a failure or have let yourself or your family down: not at all 7. Trouble concentrating on things, such as reading the newspaper or watching television: not at all 8. Moving or speaking so slowly that other people could have noticed. Or the opposite - being so fidgety or restless that you have been moving around a lot more than usual: not at all 9. Thoughts that you would be better off or of hurting yourself in some way: not at all Total score: 0 Depression Screening Interpretation: Negative Depression Screening Done: Yes 10261 - PHQ-9 Billing: Yes Source: Developed by Drs. Ranjan Brambila, Tracy Schneider, Angel Best and colleagues, with an educational gabriel from [employer]. YONATAN-7 AMB Questionnaire YONATAN-7 Date YONATAN - 7 assessed: 10/04/23 Feeling nervous, anxious, or on edge: 0 = Not at all Not being able to stop or control worryin = Not at all Worrying too much about different things: 0 = Not at all Trouble relaxin = Not at all Being so restless that it is hard to sit still: 0 = Not at all Becoming easily annoyed or irritable: 0 = Not at all Feeling afraid as if something awful might happen: 0 = Not at all Total YONATAN-7 score (0-4 normal; 5-9 mild; 10-14 moderate; 15-21 severe): 0 Source: Developed by Drs. Ranjan Brambila, Tracy Schneider, Angel Best and colleagues, with an educational gabriel from [employer]. YONATAN-7 Assessment Billing YONATAN-7 Assessment Tool: YONATAN-7 Assessment 90316 AUDIT C Alcohol Use Questionnaire (AUDIT-C) 1. How often do you have a drink containing alcohol?: 2-4 times a month 2. How many drinks containing alcohol do you have on a typical day when you are drinking?: 1 or 2 3. How often do you have six or more drinks on one occasion?: Never Total Score: 2 Score Reviewed/Action Taken: Yes Review of Systems Const Reports as per HPI Physical Exam Vital Signs: Last Vital Signs Pulse 62 10/04/23 08:59 BP 130/72 10/04/23 08:59 Pulse Ox 97 10/04/23 08:59 Oxygen Delivery Method Room Air 10/04/23 08:59 BMI result Body Mass Index 34.4 Const General: cooperative Nutritional Appearance: obese Orientation/consciousness: patient oriented x3 Neuro Other: - romberg, can tandem walk, can walk and turn, can rise from sitting to standing, passed whisper test General: patient oriented x3 Psych Appearance: grossly normal Mental Status: mental status grossly normal Speech and movement: Normal speech and movement present Affect: normal affect Attitude: cooperative Thought process: Normal thought process present Thought content: Normal thought content present Insight: Good insight present (Psych) Judgement: Good judgement present (Psych) Assessment & Plan Assessment & Plan (1) Screening PSA (prostate specific antigen): Code(s): Z12.5 - Encounter for screening for malignant neoplasm of prostate Plan: PSA ordered (2) Dyslipidemia: Code(s): E78.5 - Hyperlipidemia, unspecified Plan: Labs ordered (3) Medicare annual wellness visit, initial: Code(s): Z00.00 - Encounter for general adult medical examination without abnormal findings Plan The patient agreed to the use of a medical physics professor for this encounter. Scribed for BENITO Fung-BC by Lisset Funez medical physics professor, on 10/04/2023 at 09:30 EST. Orders: Orders Prostate Specific Antigen Scr Today Z12.5 - Encounter for screening for malignant neoplasm of prostate Comprehensive [place]. Panel Fast Today E78.5 - Hyperlipidemia, unspecified TSH reflex Free T4 Today E78.5 - Hyperlipidemia, unspecified UA CC w/rflx Micro + Cult Today E78.5 - Hyperlipidemia, unspecified Lipid Panel Today E78.5 - Hyperlipidemia, unspecified Complete Blood Count Auto Diff Today E78.5 - Hyperlipidemia, unspecified Quality Reporting (2019) Depression/Bipolar (159/160/161/177) PHQ-9: Total score: 0 Coding Level of Care Code Medicare Subsequent (G0439) Est Pt Level 3 (40516) Diagnoses Screening PSA (prostate specific antigen) Z12.5 Dyslipidemia E78.5 Medicare annual wellness visit, initial Z00.00 Additional Codes YONATAN-7 Assessment Billing - YONATAN-7 Assessment Tool: YONATAN-7 Assessment [id number] ([id number]) Advance Care Planning Forms completed: Health Care Proxy (form given to pt to fill out), MOLST (form given to pt to fill out) and Living will (pt reports having this already done)
== END 2023-10-04 09:44 | disposition home or self-care (01) ==
PROVIDERS: PCP Nurse Practitioner Family; Visit Provider Nurse Practitioner Family
DX: Z00.00 Encounter for general adult medical examination without abnormal findings (principal); E78.5 Hyperlipidemia, unspecified; Z12.5 Encounter for screening for malignant neoplasm of prostate
CPT/HCPCS: G0439

== ENCOUNTER 2023-10-13 08:14 | Outpatient (REF) | payer MEDICARE, SELFPAY ==
[2023-10-13 11:18] LABS: MANUAL DIFF FLAG NO
[2023-10-13 11:21] LABS: Basophils Absolute Auto 0.1 X10*3/uL (0.0-0.2); Basophils Percent Auto 1.4 % (0-2); Eosinophils Absolute Auto 0.4 X10*3/uL (0.0-0.4); Eosinophils Percent Auto 4.9 % (0-4); Hematocrit 48.4 % (42.0-52.0); Hemoglobin 17.3 g/dl (14.0-18.0); Imm Gran Abs Auto 0.03 X10*3/uL (0.00-0.03); Imm Gran Pct Auto 0.4 % (0.0-0.4); Lymphocytes Absolute Auto 1.6 X10*3/uL (1.2-4.9); Lymphocytes Percent Auto 21.1 % (20-40); Mean Corpuscular HGB Conc 35.7 g/dl (31.0-36.0); Mean Corpuscular Hemoglobin 34.5 pg (27.0-33.0); Mean Corpuscular Volume 96.4 fL (80.0-98.0); Mean Platelet Volume 11.4 fL (9.4-12.4); Monocytes Absolute Auto 0.8 X10*3/uL (0.1-1.2); Monocytes Percent Auto 10.7 % (2-11); Neutrophils Absolute Auto 4.7 x10*3/uL (2.0-8.3); Neutrophils Percent Auto 61.5 % (45-73); Platelet Count 207 X10*3/uL (160-400); Red Blood Count 5.02 X10*6/uL (4.60-5.80); Red Cell Distribution Width 13.8 % (11.0-16.0); White Blood Count 7.6 X10*3/uL (4.8-10.8)
[2023-10-13 11:24] LABS: Appearance Urine Clear; Color Urine Yellow; Glucose Urine UA Negative (Negative); Leukocyte Esterase Urine Negative (Negative); Nitrite Urine Negative (Negative); PH 7.5 (5.0-9.0); Urine Blood Negative (Negative); Urine Ketones Negative (Negative); Urine Protein Negative (Neg-Trace)
[2023-10-13 12:04] LABS: Alanine Aminotransferase 25 U/L (0-40); Albumin Level 3.9 g/dL (3.5-5.0); Alkaline Phosphatase 80 U/L (39-117); Anion Gap 12 (12-20); Aspartate Amino Transferase 25 U/L (5-37); Bilirubin Total 1.6 mg/dL (0.0-1.0); Blood Urea Nitrogen 17 mg/dL (9-16); Calcium 10.1 mg/dL (8.4-10.2); Carbon Dioxide 29 mmol/L (22-29); Chloride 101 mmol/L (96-108); Cholesterol 226 mg/dL (<200); Estimated Glomerular Filt Rate > 60; Glucose Fasting 108 mg/dL (60-99); HDL Cholesterol 45 mg/dL (>40); LDL Cholesterol Calculated 149 mg/dL (<100); Potassium 3.8 mmol/L (3.3-5.1); Sodium 138 mmol/L (135-145); TSH reflex Free T4 4.04 uIU/mL (0.32-4.0); Triglycerides 164 mg/dL (<150)
[2023-10-13 12:58] LABS: Free T4 (Free Thyroxine) 0.94 ng/dL (0.71-1.85)
== END 2023-10-13 08:15 | disposition home or self-care (01) ==
LOC: HO.HMGCLDS 08:14
PROVIDERS: PCP Nurse Practitioner Family; Visit Provider Nurse Practitioner Family
DX: Z12.5 Encounter for screening for malignant neoplasm of prostate (principal); E78.5 Hyperlipidemia, unspecified
CPT/HCPCS: 36415; 80053; 80061; 81003; 84153; 84439; 84443; 85025

== ENCOUNTER 2024-03-31 08:43 | Outpatient (REF) | payer MEDICARE, SELFPAY ==
[2024-03-31 10:39] LABS: Alanine Aminotransferase 24 U/L (0-40); Albumin Level 4.1 g/dL (3.5-5.0); Alkaline Phosphatase 71 U/L (39-117); Anion Gap 12 (12-20); Aspartate Amino Transferase 23 U/L (5-37); Bilirubin Direct 0.3 mg/dL (0.0-0.5); Bilirubin Total 1.5 mg/dL (0.0-1.0); Blood Urea Nitrogen 15 mg/dL (9-16); Calcium 10.2 mg/dL (8.4-10.2); Carbon Dioxide 29 mmol/L (22-29); Chloride 103 mmol/L (96-108); Cholesterol 234 mg/dL (<200); Estimated Glomerular Filt Rate > 60; Glucose Fasting 105 mg/dL (60-99); HDL Cholesterol 39 mg/dL (>40); LDL Cholesterol Calculated 162 mg/dL (<100); Sodium 140 mmol/L (135-145); Total Protein 8.1 g/dL (6.5-8.0); Triglycerides 167 mg/dL (<150)
[2024-03-31 10:56] LABS: TSH reflex Free T4 4.35 uIU/mL (0.32-4.0)
[2024-03-31 12:44] LABS: Free T4 (Free Thyroxine) 0.83 ng/dL (0.71-1.85)
[2024-04-03 18:14] LABS: Thyroid Peroxidase Antibodies 1 IU/mL (<9)
== END 2024-03-31 08:44 | disposition home or self-care (01) ==
LOC: HO.HMGCLDS 08:43
PROVIDERS: PCP Nurse Practitioner Family; Visit Provider Nurse Practitioner Family
DX: R17 Unspecified jaundice (principal); R79.89 Other specified abnormal findings of blood chemistry; E78.5 Hyperlipidemia, unspecified
CPT/HCPCS: 36415; 80053; 80061; 82248; 84439; 84443; 86376

== ENCOUNTER 2024-04-03 07:56 | Outpatient (AMB) | payer MEDICARE, SELFPAY ==
--- NOTE | 2024-04-03 07:36 | MHC.PC.OV ---
Intake Visit Reasons: lab review Allergies No Known Allergies [No Known Allergies*] Allergy (Verified 10/04/23 08:59) Medication List - Last Reconciled 04/03/24 by [facility] allopurinol 100 mg PO DAILY 90 days atorvastatin 10 mg PO BEDTIME [Glucosamine 1 tab PO DAILY] hydrochlorothiazide 12.5 mg PO DAILY multivitamin 1 tab PO DAILY omega 9-nzo-dtc-fish oil 1,000 mg (120 mg-180 mg) (Fish Oil) 1 cap PO DAILY Tobacco use date assessed: 04/07/23 Dental Screening Dental Screen Date: 04/07/23 HPI lab review HPI Details Pt's fasting blood sugar was elevated. Educated pt on proper diet and limiting sugars and bad carbs. Pt's lipids were elevated. He is taking atorvastain 10mg. Will increase this to 20mg. Will repeat labs in 2 months. Pt's bilirubin was elevated. Denies any abdominal pain. Will order further labs. Pt's TSH was elevated. Pt denies any fatigue and constipation. Will repeat TSH in 2 months. Pt is walking regularly. Gout: denies any symptoms, taking a preventative, will recheck uric acid. [facility] Medical History Paronychia of great toe Elevated TSH Gout Obesity Screening PSA (prostate specific antigen) HTN (hypertension) Varicose veins of both lower extremities Surgical History History of amputation of left great toe (07/01/22) Hx of hand surgery Status post debridement (06/16/22) Hx of vascular surgery Hx of colonoscopy Family History Father HTN (hypertension) Mother Parkinsons disease Social History Household Members: None Housing: House Are you a primary skin care specialist to a significant other at home: No Do you presently have visiting nurse or other home services: No Alcohol intake: current Alcohol intake frequency: a few times a month Patient Tobacco Use Status: Never used Tobacco e-Cigarette/Vaping Use: Never Used Second Hand Smoke Exposure: No Advance Directives Date on File: 04/09/22 service: No Current occupational status: retired Cognitive needs: No Hearing needs: No Vision needs: No Questionnaire Thrive Questionnaire Date Thrive assessed: 03/10/23 YONATAN-7 AMB Questionnaire YONATAN-7 Date YONATAN - 7 assessed: 10/04/23 Source: Developed by Drs. Ranjan Brambila, Tracy Schneider, Angel Best and colleagues, with an educational gabriel from [employer]. Review of Systems Const Reports as per HPI Physical exam (Primary Care) Tobacco/Smoking Status: Tobacco use Status Tobacco use date assessed 04/07/23 04/07/23 09:31 Patient Tobacco Use Status Never used Tobacco 04/07/23 09:31 e-Cigarette/Vaping Use Never Used 04/07/23 09:31 Thrive Assessment: Date of Thrive Assessment Date Thrive assessed 03/10/23 04/07/23 09:31 Const General: cooperative Orientation/consciousness: patient oriented x3 Neuro General: patient oriented x3 Psych Mental Status: mental status grossly normal Speech and movement: Clear speech present Affect: normal affect Attitude: cooperative Thought process: Normal thought process present Thought content: Normal thought content present Insight: Good insight present (Psych) Judgement: Good judgement present (Psych) Telehealth Telehealth Telehealth Platform: Telephone Location of provider rendering services: practice address Location of patient: address on file Patient Identification confirmed using: Name, : Yes Telehealth method: voice only Patient verbally consented to treatment: Yes Patient verbally consented to billing insurance company: Yes Patient informed of any privacy concerns related to visit: Yes Minutes spent on Phone/Video with Pt.: 10 Assessment and Plan Assessment & Plan (1) Elevated bilirubin: Code(s): R17 - Unspecified jaundice Plan: Labs ordered, denies any ABD pain (2) Elevated TSH: Code(s): R79.89 - Other specified abnormal findings of blood chemistry Plan: Repeat TSH ordered (3) Dyslipidemia: Code(s): E78.5 - Hyperlipidemia, unspecified Plan: Increasing atorvastatin from 10mg to 20mg (4) Gout: Code(s): M10.9 - Gout, unspecified Plan: rechecking uric acid, denies any current symptoms Plan The patient agreed to the use of a medical billing supervisor for this encounter. Scribed for MAURILIO Fung by Lisset Armin, medical billing supervisor, on 04/03/2024 at 07:35 EST. Orders: Orders TSH reflex Free T4 Today R79.89 - Other specified abnormal findings of blood chemistry Haptoglobin Today R17 - Unspecified jaundice Lactate Dehydrogenase Today R17 - Unspecified jaundice Reticulocyte Count Today R17 - Unspecified jaundice Comprehensive [place]. Panel Fast Today R17 - Unspecified jaundice Lipid Panel Today E78.5 - Hyperlipidemia, unspecified, R17 - Unspecified jaundice Uric Acid Today M10.9 - Gout, unspecified Medications: Changed From atorvastatin 10 mg PO BEDTIME 90 tabs 0RF To atorvastatin 20 mg PO BEDTIME 90 days 90 tabs 0RF Coding Level of Care Code Tele Est Pt Level 3 (28827) Diagnoses Elevated bilirubin R17 Elevated TSH R79.89 Dyslipidemia E78.5 Gout M10.9
== END 2024-04-03 08:09 | disposition home or self-care (01) ==
LOC: HO.HMGC 07:56
PROVIDERS: PCP Nurse Practitioner Family; Visit Provider Nurse Practitioner Family
DX: R17 Unspecified jaundice (principal); R79.89 Other specified abnormal findings of blood chemistry; E78.5 Hyperlipidemia, unspecified; M10.9 Gout, unspecified
CPT/HCPCS: 99441

== ENCOUNTER 2024-09-18 16:39 | Emergency (ER) | payer MEDICARE, SELFPAY ==
--- NOTE | ~2024-09-18 | CT_ITS ---
CLINICAL HISTORY: fall, +HS CT head without contrast Comparison: None Findings: No acute intracranial hemorrhage. Old left basal ganglia region lacunar infarction measures 0.8 cm. Mild white matter pathology likely due to small-vessel ischemic disease. No midline shift or hydrocephalus, with mild generalized volume loss. Mucosal thickening of the imaged paranasal sinuses. Imaged mastoid air cells are well aerated. No acute skull fracture. IMPRESSION: 1. No acute intracranial hemorrhage or acute skull fracture. 2. Small old left basal ganglia region lacunar infarction. This document has been electronically signed by: Veto Jackson MD on 09/18/2024 21:04:20
--- NOTE | ~2024-09-18 | XR_ITS ---
CLINICAL HISTORY: fall, pain 4 view right knee Comparison: None Findings: Large effusion of the right knee. No displaced fracture. No dislocation. Moderate osteoarthritis. Joint space narrowing is most pronounced in the patellofemoral compartment. Vascular calcifications present. No radiopaque retained foreign body. IMPRESSION: 1. Large effusion of the right knee. 2. No acute fracture or dislocation. This document has been electronically signed by: Veto Jackson MD on 09/18/2024 19:29:54
--- NOTE | ~2024-09-18 | XR_ITS ---
CLINICAL HISTORY: fall pain 2 view right femur Comparison: None Findings: No displaced fractures or dislocations. Moderate osteoarthritis of the right hip and right knee. Large effusion of the right knee. Vascular calcifications present, including phleboliths in the pelvis. Linear opacities nonspecific in the medial thigh soft tissues. IMPRESSION: 1. No acute fracture of right femur. 2. Degenerative changes include right hip and right knee. 3. Linear foreign body of the medial thigh soft tissues (superficial) This document has been electronically signed by: Veto Jackson MD on 09/18/2024 19:28:55
--- NOTE | ~2024-09-18 | CT_ITS ---
CLINICAL HISTORY: fall, head injury CT cervical spine without contrast Comparison: None Findings: No acute fracture of the cervical spine. Straightening of the cervical lordosis. Mild retrolisthesis at C3-C4 with disc osteophyte complex. Additional disc osteophyte complexes are multifocal with mild spinal canal stenosis. Foraminal narrowing is multifocal in moderate including C5-C6 and C6-C7. Facet arthropathy is multifocal with sclerosis. Ligament calcifications are noted including nuchal ligament ossifications. No paraspinal hematoma. Vascular calcifications present. Scarring and emphysematous changes of the partially imaged lung apices. IMPRESSION: 1. No acute fracture of the cervical spine. 2. Multifocal degenerative changes including facet arthropathy. This document has been electronically signed by: Veto Jackson MD on 09/18/2024 21:14:59
[2024-09-18 16:45] VITALS: BP 140/90; PULSE 88; O2SAT 99
[2024-09-18 16:49] VITALS: BP 189/95; PULSE 80; RESP 16; TEMP 36.6; O2SAT 96; BMI 33.0
--- NOTE | 2024-09-18 17:11 | ED.HEATRA ---
HPI - Head Injury General Chief complaint: Fall Stated complaint: [facility] fall, -LOC, -HS, -thinners, R knee injury Time Seen by Provider: 09/18/24 16:57 Source: patient and EMS Mode of arrival: EMS Limitations: no limitations History of Present Illness ED Provider: Sommer Bhatt NP HPI Narrative: Patient is a 69-year-old male who presents emergency department via EMS for evaluation. He reports a mechanical slip and fall at approximately 14:30 today. He endorses head strike but denies any loss of consciousness. Denies use of anticoagulants or known coagulation disorders. No dizziness, lightheadedness, vision changes, neck pain, neck stiffness, numbness or tingling of the extremities, bladder bowel dysfunction. He is complaining of pain to his knee he is unable to strain a due to his degree of pain it is held in 90 degrees of flexion. There is redness overlying the kneecap. He denies any pain lower in his leg. He does endorse having pain to the mid/distal femur as well. Denies any prior injury to this extremity. No precipitating symptoms prior to the fall endorsing it to be strictly mechanical in nature. Related Data Home Medications ?Medication ?Instructions ?Recorded ?Confirmed Glucosamine 1 tab PO DAILY 03/09/23 04/03/24 multivitamin 1 tab PO DAILY 03/09/23 04/03/24 omega 4-inl-ksw-fish oil 1,000 mg 1 cap PO DAILY 03/09/23 04/03/24 (120 mg-180 mg) capsule (Fish Oil) Previous Rx's ?Medication ?Instructions ?Recorded allopurinol 100 mg tablet 100 mg PO DAILY 90 days #90 tabs 06/02/24 hydrochlorothiazide 12.5 mg tablet 12.5 mg PO DAILY #90 tabs 06/02/24 atorvastatin 20 mg tablet 20 mg PO BEDTIME 90 days #90 tabs 09/13/24 Allergies Allergy/AdvReac Type Severity Reaction Status Date / Time No Known Allergies Allergy Verified 09/18/24 16:51 [No Known Allergies*] Review of Systems Review of Systems: Yes all other systems are reviewed and are negative PMFSH Past Medical History Attestation statement: The following information was validated with the patient. Source: old records reviewed Medical History Gout Paronychia of great toe Elevated TSH Obesity Screening PSA (prostate specific antigen) HTN (hypertension) Varicose veins of both lower extremities Surgical History History of amputation of left great toe (07/01/22) Hx of hand surgery Status post debridement (06/16/22) Hx of vascular surgery Hx of colonoscopy Family History Family History Father HTN (hypertension) Mother Parkinsons disease Social History Social History Household Members: None Housing: House Are you a primary neurocritical care physician to a significant other at home: No Do you presently have visiting nurse or other home services: No Alcohol intake: current Alcohol intake frequency: a few times a month Patient Tobacco Use Status: Never used Tobacco Smoked in Last 30 Days: Yes e-Cigarette/Vaping Use: Never Used Second Hand Smoke Exposure: No Use of substances other than those prescribed or required for medical reasons: No Advance Directives: Yes Advance Directives on File: Yes Advance Directives Date on File: 04/09/22 Do you have a plan to hurt others: No Plan service: No Current occupational status: retired Cognitive needs: No Hearing needs: No Vision needs: No Physical Exam Vital Signs: Vital Signs: Last Vital Signs Temp 98.1 F 09/18/24 20:46 Pulse 73 09/18/24 20:46 Resp 18 09/18/24 20:46 BP 160/71 H 09/18/24 20:46 Pulse Ox 96 09/18/24 20:46 O2 Del Method Room Air 09/18/24 20:46 BMI result Body Mass Index 33.0 Appearance: Alert.?Oriented to person, place and time. No acute distress.?Normal affect. Head: Normocephalic Eyes: Pupils equal, round and reactive to light. EOMI. Conjunctiva and sclera normal? No Raman sign noted. No raccoon eyes noted ENT: No septal hematoma, nares patent bilaterally. External auditory canal normal tympanic membrane pearly jones and intact bilaterally. Dentition normal, no fractured teeth. No lesions or lacerations of oropharynx. Uvula midline. Moist mucous membranes. Neck: Normal inspection.? Neck supple.??No palpable tenderness, step-off, deformities. CVS: Heart sounds normal. Normal heart rate and rhythm.? Pulses normal.?? Respiratory: No respiratory distress.? Lung sounds clear to auscultation bilaterally?? Abdomen: Soft and non-tender. Normoactive bowel sounds. ?? Skin: Skin warm and dry.? Normal skin color.? Normal skin turgor.?? Extremities: Right lower extremity with localized edema to the right knee; suprapatellar effusion and palpable deformity tenderness upon palpation. Erythema and tenderness over the patella. No calf tenderness. Full range of motion to the hip and ankle. Knee is held in a 90 degree flexion as point of most comfort. Neuro: Moves all extremities spontaneously. Sensation intact bilaterally. CN II-XII intact. No focal neuro deficits. Course Reevaluation(s) Reevaluation #1: CT head and cervical spine without acute pathology. XR of the right knee and femur without acute fracture or dislocation. At the time my evaluation able to hold the knee in full extension at the time vesicle continued to have a palpable ridge in the suprapatellar region with localized effusion. He will be placed in an Paramjit bandage as well as a knee immobilizer and provided with crutches for outpatient follow-up with orthopedics. We discussed rest, ice, elevation. Acetaminophen for pain management. Reviewed worrisome signs and symptoms that would warrant prompt evaluation in the emergency department. Stable for discharge home Medications Administered Discontinued Medications Generic Name Dose Route Start Last Admin Trade Name Freq PRN Reason Stop Dose Admin Acetaminophen 975 mg 09/18/24 17:17 09/18/24 17:29 Acetaminophen 325 Mg Tablet PO 09/18/24 17:18 975 mg ONCE ONE Administration Medical Decision Making Medical Decision Making MDM Narrative: Patient is a 69-year-old male with past medical history of gout, obesity, hypertension presents emergency department for evaluation after mechanical slip and fall on the ice earlier this afternoon as per HPI. Endorsed head strike no loss of consciousness, on evaluation he appears well, no focal neurological deficits, however given his age and mechanism of injury will obtain CT of the head and cervical spine to exclude ICH, SDH, fracture, subluxation. Regarding the injury to his right lower extremity, I have concern for possible quadricep rupture, tendon injury given palpable deformity and suprapatellar effusion, he also has erythema overlying the patella with tenderness upon palpation, XR of the knee to be obtained to exclude fracture/dislocation, also obtaining XR of the femur to exclude fracture/dislocation. He is amenable to trialing acetaminophen at this time. His right lower extremity is neurovascularly intact distally. Differential Diagnosis Differential Diagnoses: The differential diagnosis associated with the presentation includes (See narrative above) Admission/Observation Consideration of admission/observation: Escalation of care including admission/observation considered (See narrative above) Radiology Impression Discussion of test interpretation with radiology: I have reviewed the radiologist's reading. Radiologist Impression: 2 view right femur Comparison: None Findings: No displaced fractures or dislocations. Moderate osteoarthritis of the right hip and right knee. Large effusion of the right knee. Vascular calcifications present, including phleboliths in the pelvis. Linear opacities nonspecific in the medial thigh soft tissues. IMPRESSION: 1. No acute fracture of right femur. 2. Degenerative changes include right hip and right knee. 3. Linear foreign body of the medial thigh soft tissues (superficial) 4 view right knee Comparison: None Findings: Large effusion of the right knee. No displaced fracture. No dislocation. Moderate osteoarthritis. Joint space narrowing is most pronounced in the patellofemoral compartment. Vascular calcifications present. No radiopaque retained foreign body. IMPRESSION: 1. Large effusion of the right knee. 2. No acute fracture or dislocation. CT head without contrast Comparison: None Findings: No acute intracranial hemorrhage. Old left basal ganglia region lacunar infarction measures 0.8 cm. Mild white matter pathology likely due to small-vessel ischemic disease. No midline shift or hydrocephalus, with mild generalized volume loss. Mucosal thickening of the imaged paranasal sinuses. Imaged mastoid air cells are well aerated. No acute skull fracture. IMPRESSION: 1. No acute intracranial hemorrhage or acute skull fracture. 2. Small old left basal ganglia region lacunar infarction. CT cervical spine without contrast Comparison: None Findings: No acute fracture of the cervical spine. Straightening of the cervical lordosis. Mild retrolisthesis at C3-C4 with disc osteophyte complex. Additional disc osteophyte complexes are multifocal with mild spinal canal stenosis. Foraminal narrowing is multifocal in moderate including C5-C6 and C6-C7. Facet arthropathy is multifocal with sclerosis. Ligament calcifications are noted including nuchal ligament ossifications. No paraspinal hematoma. Vascular calcifications present. Scarring and emphysematous changes of the partially imaged lung apices. IMPRESSION: 1. No acute fracture of the cervical spine. 2. Multifocal degenerative changes including facet arthropathy. Independent Historian Clinical information obtained from an independent historian. History obtained from or confirmed by: EMS External Record Review External record reviewed: Outpatient record Chronic Conditions Patient?s care impacted by: Other (See narrative above) Discharge Plan Discharge Clinical Impression: Knee sprain Patient Disposition: Home, Self-Care Instructions: Crutch Instructions (ED), How to Use an Elastic Bandage (ED), R.I.C.E. Treatment (ED), Knee Sprain (ED) Additional Instructions: As discussed, history and physical exam is concerning for possible on tear or rupture to the quadriceps tendon. Use the Paramjit bandage for compression. Knee immobilizer. Nonweightbearing use the crutches as instructed. Contact the orthopedic office tomorrow to arrange for outpatient follow-up. You can take Tylenol 500 mg, 2 tablets (1,000mg) every 4-6 hours as needed for pain, but not to exceed 3 doses daily (3,000mg).? You may return to emergency department any new or worsening symptoms or concerns Prescriptions: No Action allopurinol 100 mg tablet 100 mg PO DAILY 90 Days Qty: 90 1RF hydrochlorothiazide 12.5 mg tablet 12.5 mg PO DAILY Qty: 90 1RF atorvastatin 20 mg tablet 20 mg PO BEDTIME 90 Days Qty: 90 1RF multivitamin Tablet 1 tab PO DAILY omega 6-axh-cts-fish oil [Fish Oil] 1,000 mg (120 mg-180 mg) Capsule 1 cap PO DAILY Glucosamine 1 tab PO DAILY Referrals: [facility] Surgeons [Provider Group] Print Language: Korean
[2024-09-18] MEDS: Acetaminophen 325 MG TABLET 975 MG PO (17:29)
[2024-09-18 20:46] VITALS: BP 160/71; PULSE 73; RESP 18; TEMP 36.7; O2SAT 96
[2024-09-18 22:36] VITALS: BP 160/71; PULSE 73; RESP 18; TEMP 36.7; O2SAT 96
== END 2024-09-18 22:37 | disposition home or self-care (01) ==
PROVIDERS: Emergency Provider Emergency Medicine Emergency Medical Services; PCP Nurse Practitioner Family
DX: S83.91XA Sprain of unspecified site of right knee, initial encounter (principal); M54.2 Cervicalgia; R51.9 Headache, unspecified; M25.461 Effusion, right knee; M79.604 Pain in right leg; W01.0XXA Fall on same level from slipping, tripping and stumbling without subsequent striking against object, initial encounter; Y93.9 Activity, unspecified; Y92.89 Other specified places as the place of occurrence of the external cause; Y99.8 Other external cause status; Z79.899 Other long term (current) drug therapy
CPT/HCPCS: 70450; 72125; 73552; 73564; 99284

== ENCOUNTER → 2024-09-18 17:17 | Outpatient (BNV) | payer MEDICARE, SELFPAY | PROVIDERS: Emergency Provider Emergency Medicine Emergency Medical Services; PCP Nurse Practitioner Family; Visit Provider Radiology Neuroradiology | DX: S09.90XA Unspecified injury of head, initial encounter (principal); M25.561 Pain in right knee | CPT/HCPCS: 70450; 72125; 73552; 73564 ==

== ENCOUNTER 2024-09-27 08:22 | Outpatient (REF) | payer MEDICARE, SELFPAY ==
--- NOTE | ~2024-09-27 | XR_ITS ---
CLINICAL HISTORY: M25.562 - Pain in left knee 1 view left knee Comparison: None Findings: Bones intact. No dislocations. No significant arthritic change or erosions. No radiopaque foreign body. IMPRESSION: 1. No acute findings. This document has been electronically signed by: Erick Nagel MD on 09/27/2024 13:11:40
--- NOTE | ~2024-09-27 | XR_ITS ---
CLINICAL HISTORY: M25.569 - Pain in unspecified knee [place] view of the right knee. Comparison: CR - XR KNEE RT 4V - 09/18/24 18:50 EST Findings: No fractures or dislocations. No significant arthritic change or erosions. No radiopaque foreign body. IMPRESSION: The patella appears well aligned without significant compartmental narrowing. This document has been electronically signed by: Erick Nagel MD on 09/27/2024 11:52:27
== END 2024-09-27 08:23 | disposition home or self-care (01) ==
LOC: HO.HOSX 08:22
PROVIDERS: Visit Provider Physician Assistant
DX: M25.561 Pain in right knee (principal); M25.562 Pain in left knee; S76.111A Strain of right quadriceps muscle, fascia and tendon, initial encounter
CPT/HCPCS: 73560; 99202

== ENCOUNTER 2024-09-27 09:50 | Outpatient (AMB) | payer MEDICARE, SELFPAY ==
[2024-09-27 09:51] VITALS: BMI 33.0
--- NOTE | 2024-09-27 09:51 | MHC.OFFVIS ---
Vital Signs 09/27/24 09:51 Height 5 ft 10 in Weight 230 lb BMI 33.0 Intake Visit Reasons: New Patient - Right Knee Injury Intake Note: Jorge is a 69 year old male who presents today as a new patient with complaints of right knee pain. Patient reports a slip and fall on ice 09/18/24. He was seen at [facility] after the injury where he was placed in a knee immobilizer and given crutches. His knee continues to be painful, he can flex the knee but is unable to extend. Denies numbness and tingling. He is taking Tylenol for his pain which helps mildly. Allergies No Known Allergies [No Known Allergies*] Allergy (Verified 09/27/24 10:07) HPI HPI New Patient - Right Knee Injury: Details: 69-year-old gentleman presents to the office today for an injury he sustained to his right knee on 09/18/2024. He states he fell on ice and was unable to get up and extend the leg. He was seen in the emergency department where he was found to have a palpable defect on exam and placed in an immobilizer and was referred to our office for ortho eval. [facility] Medical History Gout Paronychia of great toe Elevated TSH Obesity Screening PSA (prostate specific antigen) HTN (hypertension) Varicose veins of both lower extremities Surgical History History of amputation of left great toe (07/01/22) Hx of hand surgery Status post debridement (06/16/22) Hx of vascular surgery Hx of colonoscopy Family History Father HTN (hypertension) Mother Parkinsons disease Social History Household Members: None Housing: House Are you a primary child day care center worker to a significant other at home: No Do you presently have visiting nurse or other home services: No Alcohol intake: current Alcohol intake frequency: a few times a month Patient Tobacco Use Status: Never used Tobacco e-Cigarette/Vaping Use: Never Used Second Hand Smoke Exposure: No Advance Directives Date on File: 04/09/22 service: No Current occupational status: retired Cognitive needs: No Hearing needs: No Vision needs: No Review of Systems Const All systems reviewed & are unremarkable except as noted in HPI and below Physical Exam Vital Signs: BMI result Body Mass Index 33.0 Const General: cooperative, healthy appearing, comfortable, no acute distress, well developed and alert Orientation/consciousness: patient oriented x3 HEENT Head: Yes normal to inspection, Yes normocephalic and Yes atraumatic Eyes General: appearance normal, both eyes and all related structures Neck Neck: Yes normal visual inspection and Yes no lymphadenopathy Resp Effort & Inspection: normal respiratory effort and able to speak in complete sentences Cardio Rate: regular rate Peripheral pulses: Peripheral pulses 2+ throughout GI Inspection: Yes normal to inspection Palpation (GI): Soft to palpation Skin General skin exam: no rashes or lesions noted Neuro General: patient oriented x3 Extrem Other: Right knee normal to inspection he does have an abrasion over the knee. He does have a significant joint effusion with a palpable defect over the quad tendon. Unable to actively extend the knee. Calf supple nontender neurovascularly intact. Psych Appearance: grossly normal Mental Status: mental status grossly normal Assessment & Plan Assessment & Plan (1) Rupture of right quadriceps tendon: Code(s): S76.111A - Strain of right quadriceps muscle, fascia and tendon, initial encounter Category: Medical Plan: .I reviewed the case with Dr. Celis and this is something that would require surgical intervention to repair. I explained the extent of the injury and options to the patient which includes repair of the quad tendon. I did explain to the patient that this takes anywhere from 3-6 months to fully recover from as there needs to be a period of immobilization and then some potential physical therapy. I discussed with him the risks, benefits and alternatives to the procedure. Risks including, but not limited to infection, re-rupture of the tendon, stiffness and pain. He does understand all this and would like to proceed with right quad tendon repair with Dr. Celis. He was placed in a knee brace today which will be used after surgery as well. He will be booked accordingly. Orders: Orders XR knee RT 2V Today M25.569 - Pain in unspecified knee XR knee LT 1V Today M25.562 - Pain in left knee Coding Level of Care Code New Pt Level 4 (81705) Complex EM visit Add On G2211 Diagnoses Rupture of right quadriceps tendon S76.111T
== END 2024-09-27 10:49 | disposition home or self-care (01) ==
PROVIDERS: PCP Nurse Practitioner Family; Visit Provider Physician Assistant
DX: S76.111A Strain of right quadriceps muscle, fascia and tendon, initial encounter (principal)
CPT/HCPCS: 99204; G2211

== ENCOUNTER → 2024-09-27 09:52 | Outpatient (BNV) | payer MEDICARE, SELFPAY | PROVIDERS: Visit Provider Radiology Vascular & Interventional Radiology | DX: M25.562 Pain in left knee (principal); M25.561 Pain in right knee | CPT/HCPCS: 73560 ==

== ENCOUNTER 2024-09-29 09:48 | Day surgery (SDC) | payer MEDICARE, SELFPAY ==
--- NOTE | 2024-09-28 14:01 | HO.ANESPROP2 ---
HPI - Anesthesia Eval Consult details Narrative: 69yo M for Right Quadricep Tendon Repair PMFSH Active Problems Active Problems: All Active Problems Rupture of right quadriceps tendon (Acute) Gout (Acute) Elevated bilirubin (Acute) Medicare annual wellness visit, initial (Acute) Hyperkalemia (Acute) Acute osteomyelitis of left foot (Acute) Wound infection (Acute) Elevated fasting blood sugar (Acute) Dyslipidemia (Acute) Finger pain (Acute) Dupuytren's contracture of right hand (Acute) Toe infection (Acute) Acute osteomyelitis of toe of left foot (Acute) Cellulitis of left foot (Acute) Paronychia of great toe (Acute) Elevated TSH (Acute) Screening PSA (prostate specific antigen) (Acute) Past Medical History Medical History Gout Paronychia of great toe Elevated TSH Obesity Screening PSA (prostate specific antigen) HTN (hypertension) Varicose veins of both lower extremities Family History Family History Father HTN (hypertension) Mother Parkinsons disease Family history of problems with anesthesia: No Surgical History Surgical History History of amputation of left great toe (07/01/22) Hx of hand surgery Status post debridement (06/16/22) Hx of vascular surgery Hx of colonoscopy History of Problems with Anesthesia: No Social History Social History Household Members: None Housing: House Are you a primary wild animal caretaker to a significant other at home: No Do you presently have visiting nurse or other home services: No Alcohol intake: current Alcohol intake frequency: a few times a month Patient Tobacco Use Status: Never used Tobacco e-Cigarette/Vaping Use: Never Used Second Hand Smoke Exposure: No Advance Directives Date on File: 04/09/22 service: No Current occupational status: retired Cognitive needs: No Hearing needs: No Vision needs: No Meds Allergies Allergy/AdvReac Type Severity Reaction Status Date / Time No Known Allergies Allergy Verified 09/27/24 10:07 [No Known Allergies*] Home Medications ?Medication ?Instructions ?Recorded ?Confirmed ?Last Taken ?Type Glucosamine 1 tab PO DAILY 03/09/23 04/03/24 03/09/23 History multivitamin 1 tab PO DAILY 03/09/23 04/03/24 03/09/23 History omega 5-mei-fpg-fish oil 1,000 mg 1 cap PO DAILY 03/09/23 04/03/24 03/09/23 History (120 mg-180 mg) capsule (Fish Oil) Exam Pertinent Lab Results Pertinent Lab Results: Laboratory Tests 03/31/24 08:50 Sodium 140 Potassium 4.0 Chloride 103 Carbon Dioxide 29 BUN 15 Creatinine 1.02 Assessment and Plan Assessment Anesthesia Assessment: Chart Reviewed Final Anesthetic Review Family History of Problems with Anesthesia: No History of Problems with Anesthesia: No
[2024-09-29] VITALS (9 sets, daily range): BP systolic 134–171; BP diastolic 65–88; PULSE 56–70; RESP 16–18; TEMP 36.1–36.7; O2SAT 96–100; BMI 35.0; BMI 32.9
[2024-09-29] MEDS: Lactated Ringers 1,000 ML 100 ML IVCONT ×2 (10:40→15:48)
--- NOTE | 2024-09-29 11:11 | P.CONAN_ITS ---
[facility] Active Problems Active Problems: All Active Problems Rupture of right quadriceps tendon (Acute) Gout (Acute) Elevated bilirubin (Acute) Medicare annual wellness visit, initial (Acute) Hyperkalemia (Acute) Acute osteomyelitis of left foot (Acute) Wound infection (Acute) Elevated fasting blood sugar (Acute) Dyslipidemia (Acute) Finger pain (Acute) Dupuytren's contracture of right hand (Acute) Toe infection (Acute) Acute osteomyelitis of toe of left foot (Acute) Cellulitis of left foot (Acute) Paronychia of great toe (Acute) Elevated TSH (Acute) Screening PSA (prostate specific antigen) (Acute) Past Medical History Medical History Gout Paronychia of great toe Elevated TSH Obesity Screening PSA (prostate specific antigen) HTN (hypertension) Varicose veins of both lower extremities Family History Family History Father HTN (hypertension) Mother Parkinsons disease Family history of problems with anesthesia: No Surgical History Surgical History History of amputation of left great toe (07/01/22) Hx of hand surgery Status post debridement (06/16/22) Hx of vascular surgery Hx of colonoscopy History of Problems with Anesthesia: No Social History Social History Household Members: None Housing: House Are you a primary home health care physician to a significant other at home: No Do you presently have visiting nurse or other home services: No Alcohol intake: current Alcohol intake frequency: a few times a month Patient Tobacco Use Status: Never used Tobacco e-Cigarette/Vaping Use: Never Used Second Hand Smoke Exposure: No Have you been hit, kicked, punched, or otherwise hurt by someone within the past year? If so, by whom?: No Are you DNR?: No Advance Directives: No Advance Directives Information Provided: Yes Advance Directives Date on File: 04/09/22 Recently lost weight without trying: No Nutrition Risks: No Nutritional Risk service: No Current occupational status: retired Cognitive needs: No Hearing needs: No Vision needs: No Meds Allergies Allergy/AdvReac Type Severity Reaction Status Date / Time No Known Allergies Allergy Verified 09/29/24 10:49 [No Known Allergies*] Active Medications: Current Medications Lactated Ringer's (Lr) 1,000 mls @ 100 mls/hr IVCONT .Q10H BRI Last Admin: 09/29/24 10:40 Dose: 100 mls/hr Home Medications ?Medication ?Instructions ?Recorded ?Confirmed ?Last Taken ?Type Glucosamine 1 tab PO DAILY 03/09/23 09/29/24 09/28/24 History multivitamin 1 tab PO DAILY 03/09/23 09/29/24 09/29/24 History omega 6-bim-env-fish oil 1,000 mg 1 cap PO DAILY 03/09/23 09/29/24 09/22/24 History (120 mg-180 mg) capsule (Fish Oil) Exam Height,Weight and Vital Signs: Height 5 ft 10 in Weight 110.7 kg Last Vital Signs Temp 98.0 F 09/29/24 10:53 Pulse 63 09/29/24 10:53 Resp 18 09/29/24 10:53 BP 158/88 H 09/29/24 10:53 Pulse Ox 97 09/29/24 10:53 O2 Del Method Room Air 09/29/24 10:53 Airway Mallampati Class: II TM Dist: >3cm Neck ROM: Full Heart: RRR Lungs: CTA Assessment and Plan Assessment Anesthesia Assessment: Anesthesia Plan Discussed and Chart Reviewed Final Anesthetic Review Family History of Problems with Anesthesia: No History of Problems with Anesthesia: No NPO: Yes ASA Class: II Final Preanesthetic Review: Meds/Allgs Chart Reviewed, Consent Obtained/Reviewed and Anes Risks/Benef Reviewed Patient Risk: Intermediate Procedure Risk: Intermediate Anesthetic Plan Anesthetic Plan: GA and Regional Block Disposition: Standard PACU
--- NOTE | 2024-09-29 11:52 | MHC.SHP ---
Pre-Procedural Eval Section A - 24 Hr Update-Section A only Date of Service: 09/29/24 The patient is an INPATIENT: No Changes since office visit: No Cold of Flu in the past 2 weeks, No New Medical Problems, No Changes in Medication and No Patient answered all questions The patient has been examined within 24 hours of the surgical procedure. The History & Physical has been completed within 30 days and I have reviewed it.: Yes Section B - Complete if H&P > 30 days Chief Complaint: Unspecified injury of unspecified quadriceps Allergies: Allergies Allergy/AdvReac Type Severity Reaction Status Date / Time No Known Allergies Allergy Verified 09/29/24 10:49 [No Known Allergies*] Plan I have reviewed the history and physical and performed a pertinent physical examination on my patient. No changes have occurred unless specified. Time Spent With Patient Time: Total time managing care of this patient today ____ minutes.
[2024-09-29] MEDS: ceFAZolin Sodium/Dextrose,Iso 2 GM/50 ML PIGGYBACK IV ×2 (12:16→17:49)
[2024-09-29] MEDS: Acetaminophen 1,000 MG/100 ML PIGGYBACK 400 MG IV (12:48)
--- NOTE | 2024-09-29 14:54 | PHA.MEDREC ---
Pharmacy Consult ? Medication Reconciliation Pharmacy has reviewed the medication reconciliation done by nursing.
--- NOTE | 2024-09-29 17:03 | PM.OP ---
Brief Operative Note Date of Service: 09/29/24 Pre-op diagnosis: Right quadriceps tendon rupture Post-op diagnosis: same Procedure: Repair right quadriceps tendon Implants: Love and Nephew double loaded 4.75 Helacoil x 3 Love and Nephew Regeneten large colalgen bioinductive implant Surgeon: Christiano Celis MD Anesthesia: GLMA and regional Was an School Transportation Director used for this Procedure?: Yes School Transportation Director: Juliet Whitaker Estimated blood loss (mL): 75 IV fluids (mL): 750 Pathology: none sent Condition: stable Disposition: PACU
[2024-09-29] MEDS: oxyCODONE HCl ER 10 MG TAB.ER.12H PO (21:18)
[2024-09-29] MEDS: Atorvastatin Calcium 20 MG TABLET PO (21:19)
[2024-09-29] MEDS: Celecoxib 200 MG CAPSULE PO (21:19)
[2024-09-30 02:00] VITALS: BP 109/53; PULSE 57; RESP 17; TEMP 36.1; O2SAT 95
[2024-09-30] MEDS: Acetaminophen 325 MG TABLET 650 MG PO (02:00)
[2024-09-30] MEDS: Lactated Ringers 1,000 ML 100 ML IVCONT (02:00)
[2024-09-30] MEDS: oxyCODONE HCl Immed Release 5 MG TABLET PO (02:00)
[2024-09-30 05:39] VITALS: BP 142/63; PULSE 78; RESP 18; TEMP 36.4; O2SAT 98
[2024-09-30 06:38] LABS: MANUAL DIFF FLAG NO
[2024-09-30 06:53] VITALS: BP 139/73; PULSE 58; RESP 17; TEMP 36.7; O2SAT 98
[2024-09-30 06:55] LABS: Anion Gap 12 (12-20); Blood Urea Nitrogen 17 mg/dL (9-16); Calcium 9.2 mg/dL (8.4-10.2); Carbon Dioxide 26 mmol/L (22-29); Chloride 107 mmol/L (96-108); Creatinine Clr Calc Pharmacy 86.1; Estimated Glomerular Filt Rate > 60; Glucose Fasting 137 mg/dL (60-99); Potassium 4.5 mmol/L (3.3-5.1); Sodium 140 mmol/L (135-145)
[2024-09-30 07:13] LABS: Basophils Percent Auto 0.2 % (0-2); Eosinophils Percent Auto 0.1 % (0-4); Hematocrit 40.1 % (42.0-52.0); Hemoglobin 14.3 g/dl (14.0-18.0); Imm Gran Abs Auto 0.06 X10*3/uL (0.00-0.03); Imm Gran Pct Auto 0.5 % (0.0-0.4); Lymphocytes Absolute Auto 0.9 X10*3/uL (1.2-4.9); Lymphocytes Percent Auto 6.5 % (20-40); Mean Corpuscular HGB Conc 35.7 g/dl (31.0-36.0); Mean Corpuscular Volume 95.5 fL (80.0-98.0); Mean Platelet Volume 10.3 fL (9.4-12.4); Monocytes Absolute Auto 0.7 X10*3/uL (0.1-1.2); Neutrophils Absolute Auto 11.7 x10*3/uL (2.0-8.3); Neutrophils Percent Auto 87.7 % (45-73); Platelet Count 275 X10*3/uL (160-400); Red Cell Distribution Width 12.7 % (11.0-16.0); White Blood Count 13.3 X10*3/uL (4.8-10.8)
[2024-09-30] MEDS: allopurinoL 100 MG TABLET PO (08:36)
[2024-09-30] MEDS: Celecoxib 200 MG CAPSULE PO (08:36)
[2024-09-30] MEDS: hydroCHLOROthiazide 12.5 MG TABLET PO (08:36)
[2024-09-30] MEDS: Multivitamin TABLET 1 TAB PO (08:36)
[2024-09-30 09:56] VITALS: BP 150/67; PULSE 65; RESP 16; TEMP 36.6; O2SAT 94
--- NOTE | 2024-09-30 10:48 | PM.DS ---
DS: Providers Provider Date of Service: 09/30/24 Date of discharge: 09/30/24 Primary care physician: Fausto Pat [facility] DS: Diagnosis Discharge Diagnosis (1) Rupture of right quadriceps tendon: Status: Acute DS: Summary Hospital Course Hospital Course: The patient underwent a successful Right quad tendon repair on 09/29/[address] Celis, was transferred to PACU and then to the floor to recover. During their stay, their vitals were stable, afebrile at 98.0. Labs were unremarkable, H/H 14.3/40.1. POD 1 he was started on AsA 325mg tabs po bid for DVT ppx, they also received Physical Therapy services . Physical therapy should include gait training, WBAT with brace locked in extension. NO ROM. Prior to discharge, his dressing was clean dry and intact, The Aquacel dressing should remain intact and dry at all times. Any concerns with the dressing, please contact orthopedic office. No showering. The plan is to be discharged home Time Attestation Discharge Coordination Time (in mins): 30 Quality: Safe Use of Opioids Does Pt have an Active Cancer Diagnosis on the Problem List?: No Quality: Stroke Does the patient have a stroke diagnosis?: No Physical Exam Vital Signs: Vital Signs: Last Vital Signs Temp 98 F 09/30/24 09:56 Pulse 65 09/30/24 09:56 Resp 16 09/30/24 09:56 BP 150/67 H 09/30/24 09:56 Pulse Ox 94 09/30/24 09:56 O2 Del Method Room Air 09/30/24 09:56 BMI result Body Mass Index 32.9 DS: Data Data Completed and Pending Completed studies during hospitalization [Text1]: Procedures Detachment at Left 1st Toe, Complete, Open Approach (06/26/22) Fluoroscopy of Superior Vena Cava, Guidance (03/09/23) Insertion of Infusion Device into Superior Vena Cava, Percutaneous Approach (03/09/23) Ultrasonography of Superior Vena Cava, Guidance (04/08/22) Labs on day of discharge: Laboratory Results - last 24 hr 09/30/24 06:16 WBC 13.3 H RBC 4.20 L Hgb 14.3 Hct 40.1 L MCV 95.5 MCH 34.0 H MCHC 35.7 RDW 12.7 Plt Count 275 D MPV 10.3 Immature Gran % (Auto) 0.5 H Neut % (Auto) 87.7 H Lymph % (Auto) 6.5 L Hendricks % (Auto) 5.0 Eos % (Auto) 0.1 Baso % (Auto) 0.2 Lymph # (Auto) 0.9 L Hendricks # (Auto) 0.7 Eos # (Auto) 0.0 Baso # (Auto) 0.0 Abs Immat Gran (auto) 0.06 H Absolute Neuts (auto) 11.7 H Absolute Nucleated RBC 0.000 Nucleated RBC % (auto) 0.0 Sodium 140 Potassium 4.5 Chloride 107 Carbon Dioxide 26 Anion Gap 12 BUN 17 H Creatinine 0.95 Estim Creat Clear Calc 86.1 Estimated GFR > 60 Fasting Glucose 137 H Calcium 9.2 D Discharge Plan Discharge Patient Disposition: Home, Self-Care Referrals: Juliet Whitaker PA-C [Physician Group [facility]] - 2 Weeks (10/12/24 14:15 [facility] [place] [facility] Juliet Whitaker PA-C) Discharge Medications: New celecoxib 200 mg Capsule 200 mg PO BID 30 Days Qty: 60 0RF acetaminophen 325 mg Tablet 650 mg PO Q6H PRN (Reason: Pain, Mild 1-3,Fever,Headache) 30 Days Qty: 240 0RF oxycodone 5 mg Tablet 5 mg PO Q4H PRN (Reason: Pain, Moderate(Pain Scale 4-6)) 7 Days Qty: 42 0RF Rx Instructions: Partial Fill upon patient request. Continued allopurinol 100 mg tablet 100 mg PO DAILY 90 Days Qty: 90 1RF hydrochlorothiazide 12.5 mg tablet 12.5 mg PO DAILY Qty: 90 1RF atorvastatin 20 mg tablet 20 mg PO BEDTIME 90 Days Qty: 90 1RF multivitamin Tablet 1 tab PO DAILY omega 0-dvy-tfv-fish oil [Fish Oil] 1,000 mg (120 mg-180 mg) Capsule 1 cap PO DAILY Glucosamine 1 tab PO DAILY Discharge Orders: Discharge Order (Routine); Ordered 09/30/24 Ordered By: Maureen Huerta Diet: Regular diet Activity on Discharge: Use cane or walker Activity Restrictions/Additional Instructions: WBAT with brace locked in extension at all times DO NOT BEND THE KNEE Keep dressing clean, dry and intact Perform Ankle pumps for leg circulation 4x a day Elevate leg above the level of the heart on 3 pillows Any questions or concerns please call the office [facility] Follow up with Orthopedics in 2 weeks. Print Language: Cymro
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
[2024-09-30 11:07] VITALS: BP 150/67; PULSE 65; O2SAT 94
[2024-09-30] MEDS: Aspirin 325 MG TABLET PO (11:30)
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
--- NOTE | 2024-09-30 11:46 | PC.NURSE ---
Patient requesting transport home with private vehicle (family member) rather than ambulance transport. Pt feels comfortable with transporting home with brother and adult son, and ambulating into home. Patient demonstrates well he is walking with crutches, states his pain is 2/10 for surgical site, and reports only one step into home.
--- NOTE | 2024-09-30 14:17 | HO.POSTANES ---
Post Anesthesia Evaluation Post Anesthesia Evaluation Date of Service: 09/30/24 Vital Signs: Vital Signs Temp Pulse Resp BP Pulse Ox O2 Del Method 09/30/24 11:07 65 150/67 H 94 09/30/24 09:56 98 F 65 16 150/67 H 94 Room Air 09/30/24 06:53 98.1 F 58 17 139/73 98 Room Air 09/30/24 05:39 97.5 F 78 18 142/63 H 98 Room Air Anesthesia: General LMA Mental Status: Awake Pain Control: Satisfactory Nausea/Vomiting: None Hydration: Adequate Anesthesia-Related Issues: No Anes. Related Issues
--- NOTE | 2024-10-02 15:13 | MHC.CM.PN ---
Patient discharged 09/30 s/p ortho surgery for LE tendon repair. He fell after discharge. He came to the ER for assessment. PT eval is pending. A referral has been sent to [facility] for home services. Prior PT eval recommended home with services. Anticipate discharge to home with services. CM will follow for discharge from ER MD MAST.
--- NOTE | 2024-10-06 11:41 | W.PM.OPN ---
Operative Note Operative Note Date of Service: 09/29/24 Narrative: Date of Service: 09/29/24 Pre-op diagnosis: Right quadriceps tendon rupture Post-op diagnosis: same Procedure: Repair right quadriceps tendon Implants: Love and Nephew double loaded 4.75 Helacoil x 3 Love and Nephew Regeneten large collagen bioinductive implant Surgeon: Christiano Celis MD Anesthesia: GLMA and regional Was an Oil Field Technician used for this Procedure?: Yes Oil Field Technician: Juliet Whitaker Estimated blood loss (mL): 75 IV fluids (mL): 750 Pathology: none sent Condition: stable Disposition: PACU Patient was brought to the operating room and placed supine on the surgical table. She was prepped and draped in standard sterile fashion and a time out was called to identify proper site, proper procedure and IV antibiotics per weight were administered. I began by making a ~6 cm incision over the patella and distal quad tendon. I dissected down to the fascia overlying the quadriceps tendon. I incised through this and there was a complete quadriceps rupture as well as a retinacular tear extending over the entire anterio hald of the knee joint. The wound was irrigated and the ends of the quadriceps wwere debrided and cleaned and the attachment site on the patella was debrided with a rongeur down to bleeding bone. I then placed three 4.75 double loaded Helacoil anchors into the patella. One limb from each anchor was then whip stitched up and back through the quadriceps tendon using [place] locking stitch. Theses limbs were then tied to their corresponding tape and re-approximated to the patellar insertion with the leg in hyper extension. The repair was anatomic. I oversewed the tendon with a fiber wire and then irrigated copiously. I used the fiber wire to close the retinaculum both media land lateral to the tendon. Given the severity of this tear I elected to place a large Regeneten collagen bioinductive implant over the repair. This was held in place with 0 Vicryl. The fascia was closed and the sub q was closed and the skin with ken. Sterile dressing were applied and the patient was placed in a locked brace in extension and extubated and brought to the recovery room in stable condition. There were no known complications.
== END 2024-09-30 12:44 | disposition home or self-care (01) ==
LOC: HO.SSS 10:25 → HO.S3 13:51
PROVIDERS: Physician Assistant; PCP Nurse Practitioner Family; Visit Provider Orthopaedic Surgery
PROC: (CPT 27385; principal; 2024-09-29 12:00)
DX: S76.111A Strain of right quadriceps muscle, fascia and tendon, initial encounter (principal); M25.561 Pain in right knee; W00.0XXA Fall on same level due to ice and snow, initial encounter; Y93.01 Activity, walking, marching and hiking; Y92.9 Unspecified place or not applicable; Y99.9 Unspecified external cause status; M10.9 Gout, unspecified; I83.93 Asymptomatic varicose veins of bilateral lower extremities; L03.032 Cellulitis of left toe; I10 Essential (primary) hypertension; R94.6 Abnormal results of thyroid function studies; Z98.890 Other specified postprocedural states
CPT/HCPCS: 27385; 36415; 80048; 85025; 97161; C1713; C1763; J0131; J0461; J0665; J0690; J1100; J2003; J2250; J2405; J2704; J2795; J3010; J7120

== ENCOUNTER → 2024-09-29 09:48 | Outpatient (BNV) | payer MEDICARE, SELFPAY | PROVIDERS: PCP Nurse Practitioner Family; Visit Provider Orthopaedic Surgery | DX: S76.111A Strain of right quadriceps muscle, fascia and tendon, initial encounter (principal) | CPT/HCPCS: 27385; 99024 ==

== ENCOUNTER 2024-09-30 19:49 | Emergency (ER) | payer MEDICARE, SELFPAY ==
[2024-09-30 19:59] VITALS: BP 154/98; BP 170/70; PULSE 60; RESP 17; TEMP 37; O2SAT 100; O2SAT 98; BMI 16.8
--- NOTE | 2024-09-30 22:39 | PC.NURSE ---
this rn assumed care of pt. pt biba from home, a&ox4, respirations even and unlabored. pt reports he had been outside walking his dog when he slipped on ice and fell over. pt reports he dragged himself into his house to sit on a chair. pt reports he just got d/c after knee surgery yesterday. pt noted to have lac to left hand and blood to the right knee dressed. knee immobilizer in place.
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
--- NOTE | 2024-09-30 23:22 | PC.NURSE ---
pt leg wrapped with non stick, abd pad and tuan wrap placed per provider at this time. new knee immobilize placed at this time.
--- NOTE | 2024-10-01 06:32 | PC.NURSE ---
pt reports his brother will provide him transport home this am.
[2024-10-01 06:33] VITALS: BP 119/48; PULSE 54; RESP 16; TEMP 36.6; O2SAT 96
[2024-10-01 18:07] VITALS: BP 141/67; PULSE 57; RESP 16; TEMP 36.2; O2SAT 95
--- NOTE | 2024-10-01 19:04 | PC.NURSE ---
patient's medication inventory completed. medication delivered to pharmacy.
[2024-10-01] MEDS: Atorvastatin Calcium 20 MG TABLET PO (21:10)
[2024-10-01] MEDS: oxyCODONE HCl Immed Release 5 MG TABLET PO (21:10)
[2024-10-01] MEDS: Celecoxib 200 MG CAPSULE PO (21:50)
[2024-10-02] VITALS (7 sets, daily range): BP systolic 101–154; BP diastolic 57–81; PULSE 53–67; RESP 16–20; TEMP 36.2–36.5; O2SAT 93–98
--- NOTE | 2024-10-02 06:19 | PC.NURSE ---
This RN assumed pt care @ 0330. Plan of care ongoing.
[2024-10-02] MEDS: hydroCHLOROthiazide 12.5 MG TABLET PO (09:24)
[2024-10-02] MEDS: allopurinoL 100 MG TABLET PO (09:24)
[2024-10-02] MEDS: Celecoxib 200 MG CAPSULE PO ×2 (12:03→21:18)
--- NOTE | 2024-10-02 14:28 | PC.NURSE ---
pt transported from 22H to overflow bed 6 at this time. a&ox4. vss and up to date. pt currently denies any pain in his right knee at this time. pt currently pending PT/CM evaluation at this time. pt on RA w/o difficulty. no sob/wob noted. respirations even/unlabored. bed alarm turned on for safety precautions. plan of care ongoing. call castorena placed within reach.
--- NOTE | 2024-10-02 15:52 | MHC.CM.PN ---
S/P fall after Ortho surgical repair of LE Tendon POD#2. A PT eval is pending. A referral has been sent to [facility] for home services as requested. Met with patient. He declined to discharge to home with services today.
[2024-10-02] MEDS: Atorvastatin Calcium 20 MG TABLET PO (21:18)
--- NOTE | 2024-10-02 21:19 | PC.NURSE ---
assumed care of pt at 20:00. pt ambulates around room independently using walker. no apparent distress noted. pt denies any current pain . medicated per mar with bedtime medications. given whole with water no issues. pt back in hospital bed resting comfortably, call castorena within reach. plan of care continues.
[2024-10-03 03:20] VITALS: BP 168/77; PULSE 58; RESP 16; TEMP 36.1; O2SAT 99
--- NOTE | 2024-10-03 08:38 | PC.NURSE ---
Paramjit wrap removed, ken with small amount of bleeding, ken cleansed and dried. ABD pad placed over ken, paramjit wrap applied , immoblizer applied .PT at bedside
[2024-10-03] MEDS: hydroCHLOROthiazide 12.5 MG TABLET PO (09:24)
[2024-10-03] MEDS: allopurinoL 100 MG TABLET PO (09:24)
[2024-10-03] MEDS: Celecoxib 200 MG CAPSULE PO ×2 (09:24→22:09)
--- NOTE | 2024-10-03 09:26 | PC.NURSE ---
Seen by ortho - new immobilizer placed, ortho removed defective immobilizer. Patient is weight per as tolerated with immobilizer in extension
[2024-10-03 11:34] LABS: Influenza A PCR NEGATIVE (Negative); Influenza B PCR NEGATIVE (Negative); Resp Syncy Virus RNA Qual PCR NEGATIVE (Negative); SARS COV2 PCR INHOUSE NEGATIVE (Negative)
--- NOTE | 2024-10-03 11:56 | MHC.CM.ED ---
Addendum entered by Danni Perea 10/03/24 15:18: [facility] bed but not until tomorrow. Patient aware and agreeable. Original Note: Patient remains in ER overflow. Physial therapy eval completed. Acute rehab is recommended. Patient is agreeable to rehab. Does not appear patient has been inpatient in any facility in the past 3 days. Referral made to all 3 acute rehab facilities. [facility] unable to offer a bed. [facility] still reviewing. Continue to monitor for d/c needs.
[2024-10-03 13:40] VITALS: BP 137/69; PULSE 61; RESP 16; TEMP 36.3; O2SAT 96
--- NOTE | 2024-10-03 14:08 | PHA.MEDREC ---
Addendum entered by Samson Santoyo [facility] 10/03/24 14:23: Reviewed [facility] Original Note: Pharmacy Consult ? Medication Reconciliation Pharmacy has completed the medication reconciliation. Spoke with patient to confirm medications. He has not started his statin at home. He was concerned about the side effects so patient did not start taking. Will let provider know.
[2024-10-03] MEDS: Atorvastatin Calcium 20 MG TABLET PO (21:19)
[2024-10-03 22:15] VITALS: BP 152/73; PULSE 57; RESP 16; TEMP 36.1; O2SAT 99
[2024-10-04 05:36] VITALS: BP 143/65; PULSE 52; RESP 18; TEMP 36.4; O2SAT 95
--- NOTE | 2024-10-04 06:16 | PC.NURSE ---
Patient sleeping overnight. Purposeful rounding performed to maintain safety. Bed alarm physician practice consultant castorena within reach.
[2024-10-04] MEDS: allopurinoL 100 MG TABLET PO (09:52)
[2024-10-04] MEDS: Celecoxib 200 MG CAPSULE PO (09:52)
[2024-10-04 09:53] VITALS: BP 145/66
[2024-10-04] MEDS: hydroCHLOROthiazide 12.5 MG TABLET PO (09:53)
--- NOTE | 2024-10-04 12:44 | MHC.CM.ED ---
Patient remains in ER overflow. [facility] is able to offer a bed. Patient can leave at 430pm. Armaan BRAGG booked. [facility] with chart. Patient, Thuy VORA and Jacque HICKEY aware. Continue to monitor for d/c needs.
[2024-10-04 14:18] VITALS: BP 131/76; PULSE 57; RESP 20; TEMP 36.9; O2SAT 97
[2024-10-04 16:24] VITALS: BP 131/76; PULSE 57; RESP 20; TEMP 36.9; O2SAT 97
[2024-10-04 16:26] VITALS: BP 163/76; PULSE 60; RESP 20; TEMP 36.3; O2SAT 93
== END 2024-10-04 17:05 | disposition skilled nursing facility (03) ==
PROVIDERS: Physician Assistant; Emergency Provider Emergency Medicine Emergency Medical Services; PCP Nurse Practitioner Family
DX: S81.011A Laceration without foreign body, right knee, initial encounter (principal); S76.111A Strain of right quadriceps muscle, fascia and tendon, initial encounter; R26.81 Unsteadiness on feet; M79.604 Pain in right leg; W01.0XXA Fall on same level from slipping, tripping and stumbling without subsequent striking against object, initial encounter; Y93.9 Activity, unspecified; Y92.9 Unspecified place or not applicable; Y99.8 Other external cause status; Z79.899 Other long term (current) drug therapy; Z03.818 Encounter for observation for suspected exposure to other biological agents ruled out
CPT/HCPCS: 0241U; 97161; 99285

== ENCOUNTER 2024-10-12 13:58 | Outpatient (AMB) | payer MEDICARE, SELFPAY ==
--- NOTE | 2024-10-12 14:01 | A.OFFVIS_ITS ---
Intake Visit Reasons: PO-Rt Quad Tendon Repair 09/29/24 -Fall 09/30 Intake Note: Jorge is a 69 year old male who presents today for a post operative appointment s/p Right Quad Tendon Repair 09/29/24. Patient was seen at [facility] ED after the injury on 09/30/24, discharged to [facility]. Allergies No Known Allergies [No Known Allergies*] Allergy (Verified 10/12/24 14:14) HPI HPI PO-Rt Quad Tendon Repair 09/29/24 -Fall 09/30: Details: Mr. Guardado is a 69-year-old male status post right quad tendon repair on 09/29/2024. Unfortunately, the patient sustained a mechanical fall when he sli pped and fell on hardwood floors on 09/30/2024. He did present to the emergency department afterwards where the patient had a bent ACL brace. The incision site remained intact. No signs of infection. [facility] Medical History Gout Paronychia of great toe Elevated TSH Obesity Screening PSA (prostate specific antigen) HTN (hypertension) Varicose veins of both lower extremities Surgical History History of amputation of left great toe (07/01/22) Hx of hand surgery Status post debridement (06/16/22) Hx of vascular surgery Hx of colonoscopy Family History Father HTN (hypertension) Mother Parkinsons disease Social History Household Members: None Housing: House Are you a primary career and technology education teacher to a significant other at home: No Do you presently have visiting nurse or other home services: No Alcohol intake: current Alcohol intake frequency: a few times a month Patient Tobacco Use Status: Never used Tobacco e-Cigarette/Vaping Use: Never Used Second Hand Smoke Exposure: No Advance Directives Date on File: 10/13/23 service: No Current occupational status: retired Cognitive needs: No Hearing needs: No Vision needs: No Review of Systems Const All systems reviewed & are unremarkable except as noted in HPI and below Physical Exam Const General: cooperative, healthy appearing and no acute distress Resp Effort & Inspection: normal respiratory effort and able to speak in complete sentences Cardio Rate: regular rate Peripheral pulses: Peripheral pulses 2+ throughout Skin Lesions: no lesions Rashes: no rashes Extrem Other: Right knee incision site clean dry and intact. Jerry intact. No surrounding erythema or drainage. No signs of infection. Poor quad function. Difficult to feel if there is a palpable defect at the quad tendon due to moderate effusion. NVI. Assessment & Plan Assessment & Plan (1) Rupture of right quadriceps tendon: Comment: repair 09/29/24 Code(s): S76.111A - Strain of right quadriceps muscle, fascia and tendon, initial encounter Category: Medical Plan Mr. Guardado is a 69-year-old male status post right quad tendon repair on 09/29/2024. Unfortunately, the patient sustained a mechanical fall when he slipped and fell on hardwood floors on 09/30/2024. He did present to the emergency department afterwards where the patient had a bent ACL brace. The incision site remained intact. No signs of infection. While in the office today, Dr. Celis was available to see the patient with me in a collaborative treatment plan was created. Unfortunately after the patient's fall it is difficult to assess the integrity of the right quad repair. In this setting with the patient fall and poor quad engagement we have decided to bring the patient to the operating room tomorrow for right knee exploration with possible quad tendon repair. I discussed the case with Dr. Celisand explained the extent of the injury to the patient and options available which include surgical intervention. I explained the procedure in detail along with the length of recovery and rehab course. I explained the risk, benefits and alternatives. Risk including, but not limited to infection, blood clots, bleeding, non union or malunion and nerve/tissue damage to surrounding areas. I answered all their questions and with their understanding they have consented to move forward with right knee.exploration and possible quadricep tendon repair. Coding Level of Care Code Global (65299) Diagnoses Rupture of right quadriceps tendon S76.111A
== END 2024-10-12 14:40 | disposition home or self-care (01) ==
LOC: HO.HOS 13:58
PROVIDERS: PCP Nurse Practitioner Family; Visit Provider Physician Assistant
DX: S76.111A Strain of right quadriceps muscle, fascia and tendon, initial encounter (principal)
CPT/HCPCS: 99024

== ENCOUNTER → 2024-10-12 13:58 | Outpatient (BNVA) | payer MEDICARE, SELFPAY | PROVIDERS: PCP Nurse Practitioner Family; Visit Provider Physician Assistant | DX: S76.111D Strain of right quadriceps muscle, fascia and tendon, subsequent encounter (principal) | CPT/HCPCS: 99212 ==

== ENCOUNTER 2024-10-13 13:14 | Day surgery (SDC) | payer MEDICARE, SELFPAY ==
[2024-10-13] VITALS (7 sets, daily range): BP systolic 140–165; BP diastolic 60–78; PULSE 52–76; RESP 16–18; TEMP 36.2–37; O2SAT 93–99; BMI 33.0; BMI 34.4
[2024-10-13] MEDS: Lactated Ringers 1,000 ML 80 ML IVCONT (14:11)
--- NOTE | 2024-10-13 14:26 | PC.NURSE ---
report given to sheyla hardy. aware to make sure order matches consent and that 24 hour is complete and preop record signed.
--- NOTE | 2024-10-13 14:44 | P.CONAN_ITS ---
HPI - Anesthesia Eval Consult details Narrative: 69 yo M presenting for right knee exploration with possible quadriceps tendon repair. Patient had surgery on 09/29/24 then fell on 09/30/24. [facility] Active Problems Active Problems: All Active Problems Rupture of right quadriceps tendon (Acute) Gout (Acute) Elevated bilirubin (Acute) Medicare annual wellness visit, initial (Acute) Hyperkalemia (Acute) Acute osteomyelitis of left foot (Acute) Wound infection (Acute) Elevated fasting blood sugar (Acute) Dyslipidemia (Acute) Finger pain (Acute) Dupuytren's contracture of right hand (Acute) Toe infection (Acute) Acute osteomyelitis of toe of left foot (Acute) Cellulitis of left foot (Acute) Paronychia of great toe (Acute) Elevated TSH (Acute) Screening PSA (prostate specific antigen) (Acute) Past Medical History Medical History Gout Paronychia of great toe Elevated TSH Obesity Screening PSA (prostate specific antigen) HTN (hypertension) Varicose veins of both lower extremities Family History Family History Father HTN (hypertension) Mother Parkinsons disease Family history of problems with anesthesia: No Surgical History Surgical History History of amputation of left great toe (07/01/22) Hx of hand surgery Status post debridement (06/16/22) Hx of vascular surgery Hx of colonoscopy History of Problems with Anesthesia: No Social History Social History Household Members: None Housing: House Are you a primary director of health care marketing to a significant other at home: No Do you presently have visiting nurse or other home services: No Alcohol intake: current Alcohol intake frequency: a few times a month Patient Tobacco Use Status: Never used Tobacco e-Cigarette/Vaping Use: Never Used Second Hand Smoke Exposure: No Have you been hit, kicked, punched, or otherwise hurt by someone within the past year? If so, by whom?: No Are you DNR?: No Advance Directives: No Advance Directives Information Provided: Yes Advance Directives Date on File: 10/13/23 Recently lost weight without trying: No Nutrition Risks: No Nutritional Risk service: No Current occupational status: retired Cognitive needs: No Hearing needs: No Vision needs: No Meds Allergies Allergy/AdvReac Type Severity Reaction Status Date / Time No Known Allergies Allergy Verified 10/13/24 13:49 [No Known Allergies*] Active Medications: Current Medications Lactated Ringer's (Lr) 1,000 mls @ 80 mls/hr IVCONT .[id number] BRI Last Admin: 10/13/24 14:11 Dose: 80 mls/hr Home Medications ?Medication ?Instructions ?Recorded ?Confirmed ?Last Taken ?Type Glucosamine 1 tab PO DAILY 03/09/23 10/13/24 10/12/24 History multivitamin 1 tab PO DAILY 03/09/23 10/13/24 10/12/24 History omega 2-xev-xov-fish oil 1,000 mg 1 cap PO DAILY 03/09/23 10/13/24 10/12/24 History (120 mg-180 mg) capsule (Fish Oil) Exam Exam Date and Time: 10/13/24 1445 Height,Weight and Vital Signs: Height 5 ft 10 in Weight 104.326 kg Airway Mallampati Class: III TM Dist: >3cm Neck ROM: Full Loose/Missing/Broken Teeth: No (patient denies any loose or broken teeth) Heart: S1S2 Lungs: CTAB Assessment and Plan Assessment Anesthesia Assessment: Anesthesia Plan Discussed and Chart Reviewed Final Anesthetic Review Family History of Problems with Anesthesia: No History of Problems with Anesthesia: No NPO: Yes ASA Class: II Final Preanesthetic Review: No Changes in Pt Med Stat, Meds/Allgs Chart Reviewed, Consent Obtained/Reviewed and Anes Risks/Benef Reviewed Patient Risk: Low Procedure Risk: Intermediate Anesthetic Plan Anesthetic Plan: GA and Agree w/ Assess. and Plan Disposition: Standard PACU
--- NOTE | 2024-10-13 15:03 | MHC.SHP ---
Pre-Procedural Eval Section A - 24 Hr Update-Section A only Date of Service: 10/13/24 The patient is an INPATIENT: No Changes since office visit: No Cold of Flu in the past 2 weeks, No New Medical Problems, No Changes in Medication and No Patient answered all questions The patient has been examined within 24 hours of the surgical procedure. The History & Physical has been completed within 30 days and I have reviewed it.: Yes Section B - Complete if H&P > 30 days Chief Complaint: Strain of right quadriceps muscle, fascia and tend Allergies: Allergies Allergy/AdvReac Type Severity Reaction Status Date / Time No Known Allergies Allergy Verified 10/13/24 13:49 [No Known Allergies*] Plan I have reviewed the history and physical and performed a pertinent physical examination on my patient. No changes have occurred unless specified. Time Spent With Patient Time: Total time managing care of this patient today ____ minutes.
[2024-10-13] MEDS: ceFAZolin Sodium/Dextrose,Iso 2 GM/50 ML PIGGYBACK IV ×2 (15:30→21:26)
--- NOTE | 2024-10-13 16:38 | PM.OP ---
Brief Operative Note Date of Service: 10/13/24 Pre-op diagnosis: RIGHT QUAD TENDON RE-RUPTURE Post-op diagnosis: same Procedure: RIGHT QUAD TENDON REPAIR Implants: CASTAÑEDA AND NEPHEW LARGE REGENETEN COLLAGEN BIOINDUCTIVE IMPLANT Surgeon: Christiano Celis MD Anesthesia: GETA and local Was an Signal Supervisor used for this Procedure?: Yes Signal Supervisor: Juliet Whitaker Estimated blood loss (mL): 125 IV fluids (mL): 800 Pathology: none sent Condition: stable Disposition: PACU
--- NOTE | 2024-10-13 16:43 | W.PM.OPN ---
Operative Note Operative Note Date of Service: 10/13/24 Narrative: Date of Service: 10/13/24 Pre-op diagnosis: RIGHT QUAD TENDON RE-RUPTURE Post-op diagnosis: same Procedure: RIGHT QUAD TENDON REPAIR Implants: CASTAÑEDA AND NEPHEW LARGE REGENETEN COLLAGEN BIOINDUCTIVE IMPLANT Surgeon: Christiano Celis MD Anesthesia: GETA and local Was an Supervisor Properties used for this Procedure?: Yes Supervisor Properties: Julite Whitaker Estimated blood loss (mL): 125 IV fluids (mL): 800 Pathology: none sent Condition: stable Disposition: PACU Procedure in detail: Indications: Patient fell and re-injured his right quad. He was seen in the clinic with palpable defect and brought to the operating room to undergo exploration possible quadriceps tendon repair. Patient was brought to the operating room and placed supine on the surgical table. He was prepped and draped in standard sterile fashion and a time out was called to identify proper site, proper procedure and IV antibiotics per weight were administered. The previous incision was clean dry and intact. There was a palpable defect however just proximal to the quadriceps insertion on the patella. I began by making incision over the prior incision. I extended this distally about 5 cm. There was a large hematoma and the wound was irrigated copiously. The quadricep tendon had retorn. All of the sutures had ripped out of the anchors. The anchors were still in place. The Regeneten bioinductive implant was still present. I debrided the area and removed all the old suture. I irrigated copiously with warm saline. I then drilled 2 holes through the patella and whip stitched a FiberWire up and then back down either side of the quadriceps tendon. I then ran a suture down through the patella and then up through the other corresponding hole. Once this was done I tied the sutures to their opposite limb with the knee in hyperextension.. I did debride the patellar insertion of the tendon down to bleeding bone prior to this. I then tightened the suture and reapproximated the tendon to its insertion site. The tendon was tight and I had to release it proximally and the quad was scarred with there was hematoma over the quadriceps muscle proximally. This was all released and I again had good opposition of the tendon to the bone. I then oversewed this both medial and laterally and then placed the Regeneten bioinductive implant over the insertion site in the central portion of the quad tendon. I was satisfied with the repair. I irrigated and closed with ken on the skin. Patient was placed in sterile dressing and a knee brace locked in extension and extubated and brought to the recovery room in stable condition. There were no known complications.
[2024-10-13] MEDS: Lactated Ringers 1,000 ML 100 ML IVCONT (17:54)
[2024-10-13] MEDS: 0.9 % Sodium Chloride Flush 3 ML SYRINGE IVFLUSH (17:54)
--- NOTE | 2024-10-13 18:19 | PHA.MEDREC ---
Addendum entered by Barrett Phipps 10/13/24 18:24: reviewed Original Note: Pharmacy Consult ? Medication Reconciliation Pharmacy has reviewed the medication reconciliation done by nursing. Spoke to patient to confirm med list. Patient states he is not taking Acetaminophen 650 mg. Patient states he has Oxycodone 5 mg , however he doesn't take
[2024-10-13] MEDS: Docusate Sodium 100 MG CAPSULE PO (20:33)
[2024-10-13] MEDS: oxyCODONE HCl ER 10 MG TAB.ER.12H PO (20:33)
[2024-10-13] MEDS: Celecoxib 200 MG CAPSULE PO (20:34)
[2024-10-14] VITALS (7 sets, daily range): BP systolic 139–161; BP diastolic 62–85; PULSE 55–59; RESP 17–18; TEMP 36.2–37; O2SAT 94–97
[2024-10-14] MEDS: Lactated Ringers 1,000 ML 100 ML IVCONT (03:33)
[2024-10-14 06:54] LABS: MANUAL DIFF FLAG NO
[2024-10-14 07:10] LABS: Basophils Absolute Auto 0.1 X10*3/uL (0.0-0.2); Basophils Percent Auto 0.4 % (0-2); Eosinophils Percent Auto 0.2 % (0-4); Hemoglobin 13.1 g/dl (14.0-18.0); Imm Gran Abs Auto 0.08 X10*3/uL (0.00-0.03); Imm Gran Pct Auto 0.5 % (0.0-0.4); Lymphocytes Absolute Auto 1.2 X10*3/uL (1.2-4.9); Lymphocytes Percent Auto 7.1 % (20-40); Mean Corpuscular HGB Conc 35.4 g/dl (31.0-36.0); Mean Corpuscular Hemoglobin 33.9 pg (27.0-33.0); Mean Corpuscular Volume 95.6 fL (80.0-98.0); Monocytes Absolute Auto 0.9 X10*3/uL (0.1-1.2); Monocytes Percent Auto 5.5 % (2-11); Neutrophils Absolute Auto 14.8 x10*3/uL (2.0-8.3); Neutrophils Percent Auto 86.3 % (45-73); Platelet Count 259 X10*3/uL (160-400); Red Blood Count 3.87 X10*6/uL (4.60-5.80); Red Cell Distribution Width 12.9 % (11.0-16.0); White Blood Count 17.2 X10*3/uL (4.8-10.8)
[2024-10-14 07:24] LABS: Anion Gap 11 (12-20); Blood Urea Nitrogen 15 mg/dL (9-16); Calcium 9.5 mg/dL (8.4-10.2); Carbon Dioxide 26 mmol/L (22-29); Chloride 108 mmol/L (96-108); Estimated Glomerular Filt Rate > 60; Glucose Fasting 138 mg/dL (60-99); Potassium 4.2 mmol/L (3.3-5.1); Sodium 141 mmol/L (135-145)
[2024-10-14] MEDS: Multivitamin TABLET 1 TAB PO (09:25)
[2024-10-14] MEDS: allopurinoL 100 MG TABLET PO (09:26)
[2024-10-14] MEDS: Docusate Sodium 100 MG CAPSULE PO ×2 (09:26→20:22)
[2024-10-14] MEDS: hydroCHLOROthiazide 12.5 MG TABLET PO (09:26)
[2024-10-14] MEDS: Celecoxib 200 MG CAPSULE PO ×2 (09:26→20:22)
--- NOTE | 2024-10-14 10:06 | PM.PNORT ---
Subjective Subjective Date of Service: 10/14/24 Interval history: POD1 s/p right quad tendon repair after re-rupture Patient is resting in bed comfortably No overnight events Pain is managed No additional complaints Physical Exam Vital Signs: Vital Signs: Last Vital Signs Temp 97.5 F 10/14/24 07:38 Pulse 59 10/14/24 09:00 Resp 18 10/14/24 07:38 BP 161/85 H 10/14/24 09:26 Pulse Ox 94 10/14/24 09:00 O2 Del Method Room Air 10/14/24 07:38 O2 Flow Rate 2 10/13/24 17:11 BMI result Body Mass Index 34.4 Const: General: cooperative, healthy appearing and no acute distress Resp: Effort & Inspection: normal respiratory effort and able to speak in complete sentences Cardio: Rate: regular rate Peripheral pulses: Peripheral pulses 2+ throughout GI: Palpation (GI): Soft to palpation Skin: Lesions: no lesions Rashes: no rashes Extrem: Other: right knee dressing is c/d/i. Able to dorsi/plantar flex. Calf is supple and nontender. Sensation intact. Pedal pulse intact. Procedures Date of Service Date of Service: 10/14/24 Progress Note: A&P Assessment and plan (1) Rupture of right quadriceps tendon: Status: Acute Plan Continue pain mgmnt Brace to remain on at all times LAURA wrap to be removed tomorrow Dressing to remain on at all times WBAT in the brace locked in extension Begin PT for s/p second quad tendon repair - initial surgery 09/29/24 - fell on 09/30/24 re-rupturing quad tenon Dispo planning-Pending PT eval, pain mgmnt, rehab placement Time Spent With Patient Time: Total time managing care of this patient today ____ minutes. Quality Stroke Does the patient have a stroke diagnosis?: No VTE Prior VTE?: No VTE Risk Level:: Medical - moderate - high VTE Device Contraindication: N/A - Device Ordered VTE Drug Contraindication: N/A - Med Ordered
--- NOTE | 2024-10-14 10:50 | HO.POSTANES ---
Post Anesthesia Evaluation Post Anesthesia Evaluation Date of Service: 10/14/24 Vital Signs: Vital Signs Temp Pulse Resp BP Pulse Ox O2 Del Method 10/14/24 09:26 161/85 H 10/14/24 09:00 59 161/85 H 94 10/14/24 07:38 97.5 F 59 18 161/85 H 94 Room Air 10/14/24 04:01 97.2 F 56 18 139/62 96 Room Air 10/14/24 00:22 97.3 F 59 18 143/63 H 95 Room Air Anesthesia: General LMA Mental Status: Awake Pain Control: Satisfactory Nausea/Vomiting: None Hydration: Adequate Anesthesia-Related Issues: No Anes. Related Issues
--- NOTE | 2024-10-14 15:14 | HO.PM.IMCN ---
History of Present Illness Data of Consult Service Date: 10/14/24 Primary Care Provider: Fausto Pat, [facility] HPI Reason for consult: Medical management Pt is a 69-year-old male with a PMH significant for HTN, HLD who was admitted to the hospital under orthopedic services for elective right quadriceps tendon repair after rerupture. POD1. Pt seen and evaluated in his room where he is resting comfortably in a chair. Pt reports pain is well-controlled and has not had to take any opioid analgesics today. Denies any acute medical complaints. No numbness or tingling in extremities. Is able to wiggle his toes without issue. No SOB or difficulty breathing. Denies chest pain/pressure, palpitations. No nausea, vomiting, abdominal pain. Denies headache. Pt reports has been taking hydrochlorothiazide 12.5 mg for at least the past 10 years. Does not closely monitor BP at home, though notes is normotensive when he does. States long hx of white coat hypertension. Review of Systems Review of Systems: Negative except for that is stated HPI [facility] Medical History Gout Paronychia of great toe Elevated TSH Obesity Screening PSA (prostate specific antigen) HTN (hypertension) Varicose veins of both lower extremities Family History Father HTN (hypertension) Mother Parkinsons disease Surgical History History of amputation of left great toe (07/01/22) Hx of hand surgery Status post debridement (06/16/22) Hx of vascular surgery Hx of colonoscopy Social History Household Members: Family Housing: House Are you a primary hourly caregiver to a significant other at home: No Do you presently have visiting nurse or other home services: No Alcohol intake: current Alcohol intake frequency: a few times a month Patient Tobacco Use Status: Never used Tobacco Smoked in Last 30 Days: No e-Cigarette/Vaping Use: Never Used Second Hand Smoke Exposure: No Use of substances other than those prescribed or required for medical reasons: No Currently Displaying Signs/Symptoms of Drug Intoxication Withdrawal: No Have you been hit, kicked, punched, or otherwise hurt by someone within the past year? If so, by whom?: No Are you DNR?: No Advance Directives: No Advance Directives Information Provided: Yes Advance Directives Date on File: 10/13/23 Do you have a plan to hurt others: No Plan Recently lost weight without trying: No Nutrition Risks: No Nutritional Risk Poor oral hygiene: No service: No Current occupational status: retired Cognitive needs: No Hearing needs: No Vision needs: No Meds Allergies Allergy/AdvReac Type Severity Reaction Status Date / Time No Known Allergies Allergy Verified 10/13/24 13:49 [No Known Allergies*] Active Medications: Current Medications Acetaminophen (Acetaminophen 325 Mg Tablet) 650 mg PO Q6H PRN PRN Reason: Pain, Mild 1-3,fever,headache Allopurinol (Allopurinol 100 Mg Tablet) 100 mg PO DAILY [facility] Last Admin: 10/14/24 09:26 Dose: 100 mg Atorvastatin Calcium (Atorvastatin Calcium 20 Mg Tablet) 20 mg PO BEDTIME [facility] Celecoxib (Celecoxib 200 Mg Capsule) 200 mg PO BID [facility] Last Admin: 10/14/24 09:26 Dose: 200 mg Docusate Sodium (Docusate Sodium 100 Mg Capsule) 100 mg PO BID [facility] Last Admin: 10/14/24 09:26 Dose: 100 mg Hydrochlorothiazide (Hydrochlorothiazide 12.5 Mg Tablet) 12.5 mg PO DAILY [facility]; Protocol Last Admin: 10/14/24 09:26 Dose: 12.5 mg Hydromorphone HCl (Hydromorphone Hcl 0.5 Mg/0.5 Ml Syringe) 0.25 mg IVPUSH Q4H PRN; Protocol PRN Reason: Pain, Severe (Pain Scale 7-10) Multivitamins/Vitamin C (Multivitamin Tablet) 1 tab PO DAILY [facility] Last Admin: 10/14/24 09:25 Dose: 1 tab Oxycodone HCl (Oxycodone Hcl Immed Release 5 Mg Tablet) 5 mg PO Q4H PRN PRN Reason: Pain, Moderate(Pain Scale 4-6) Oxycodone HCl (Oxycodone Hcl Er 10 Mg Tab.Er.12h) 10 mg PO BID [facility] Last Admin: 10/14/24 09:27 Dose: Not Given Sodium Chloride (0.9 % Sodium Chloride Flush 3 Ml Syringe) 3 ml IVFLUSH QSHIFT BRI Last Admin: 10/14/24 09:26 Dose: Not Given Home Medications ?Medication ?Instructions ?Recorded ?Confirmed ?Last Taken ?Type Glucosamine 1 tab PO DAILY 03/09/23 10/13/24 10/12/24 History multivitamin 1 tab PO DAILY 03/09/23 10/13/24 10/12/24 History omega 9-ixp-uvt-fish oil 1,000 mg 1 cap PO DAILY 03/09/23 10/13/24 10/12/24 History (120 mg-180 mg) capsule (Fish Oil) atorvastatin 20 mg tablet 20 mg PO BEDTIME 10/13/24 10/13/24 Unknown History Physical Exam Vital Signs and Narrative: Vital Signs: Last Vital Signs Temp 97.5 F 10/14/24 15:12 Pulse 55 10/14/24 15:12 Resp 17 10/14/24 15:12 BP 140/66 H 10/14/24 15:12 Pulse Ox 97 10/14/24 15:12 O2 Del Method Room Air 10/14/24 15:12 O2 Flow Rate 2 10/13/24 17:11 BMI result Body Mass Index 34.4 General: AOx3, no acute distress Resp: CTA bilaterally CVS: S1, S2, RRR GI: +BS, NT, no distention Skin: Warm, dry Neuro: Cranial nerves II-XII grossly intact bilaterally. Motor grossly intact bilaterally Extremities: No edema. Right lower extremity wrapped in clean dressing and stabilized with knee brace. Psych: Appropriate affect Results Labs 10/14/24 05:32 10/14/24 05:32 Labs: Laboratory Results - last 24 hr 10/14/24 05:32 MCV 95.6 MCH 33.9 H MCHC 35.4 RDW 12.9 Plt Count 259 MPV 11.0 Immature Gran % (Auto) 0.5 H Neut % (Auto) 86.3 H Lymph % (Auto) 7.1 L Wright % (Auto) 5.5 Eos % (Auto) 0.2 Baso % (Auto) 0.4 Lymph # (Auto) 1.2 Wright # (Auto) 0.9 Eos # (Auto) 0.0 Baso # (Auto) 0.1 Abs Immat Gran (auto) 0.08 H Absolute Neuts (auto) 14.8 H Absolute Nucleated RBC 0.000 Nucleated RBC % (auto) 0.0 Anion Gap 11 L Estim Creat Clear Calc 102.0 Estimated GFR > 60 Fasting Glucose 138 H Calcium 9.5 Assessment and Plan (1) Rupture of right quadriceps tendon: Status: Acute Plan Pt is a 69-year-old male with a PMH significant for HTN, HLD who was admitted to the hospital under orthopedic services for elective right quadriceps tendon repair after rerupture. POD1. Right quadriceps tendon repair POD1 Plan as per Orthopedics HTN Pt has been mildly hypertensive postop to 161/85 Pt reports long hx of white coat hypertension BP currently better controlled at 140/66 Continue hydrochlorothiazide 12.5 mg daily No indication for additional antihypertensive treatment at this time HLD Continue statin Pt otherwise seems stable has no acute medical complaints. Will sign off for now. Thank you for allowing us to participate in the care of this pt. Please re-consult if any acute issue or need arises.
[2024-10-14] MEDS: 0.9 % Sodium Chloride Flush 3 ML SYRINGE IVFLUSH ×2 (16:58→20:22)
[2024-10-14] MEDS: Atorvastatin Calcium 20 MG TABLET PO (20:22)
[2024-10-15 00:38] VITALS: BP 144/67; PULSE 53; RESP 18; TEMP 37.3; O2SAT 96
[2024-10-15 04:57] VITALS: BP 155/70; PULSE 50; RESP 18; TEMP 36.8; O2SAT 97
[2024-10-15 06:24] LABS: MANUAL DIFF FLAG NO
[2024-10-15 06:27] LABS: Basophils Absolute Auto 0.1 X10*3/uL (0.0-0.2); Basophils Percent Auto 1.2 % (0-2); Eosinophils Absolute Auto 0.5 X10*3/uL (0.0-0.4); Hematocrit 36.1 % (42.0-52.0); Hemoglobin 12.8 g/dl (14.0-18.0); Imm Gran Abs Auto 0.04 X10*3/uL (0.00-0.03); Imm Gran Pct Auto 0.4 % (0.0-0.4); Lymphocytes Absolute Auto 2.2 X10*3/uL (1.2-4.9); Lymphocytes Percent Auto 21.9 % (20-40); Mean Corpuscular HGB Conc 35.5 g/dl (31.0-36.0); Mean Corpuscular Hemoglobin 33.8 pg (27.0-33.0); Mean Corpuscular Volume 95.3 fL (80.0-98.0); Monocytes Percent Auto 9.6 % (2-11); Neutrophils Absolute Auto 6.1 x10*3/uL (2.0-8.3); Neutrophils Percent Auto 61.9 % (45-73); Platelet Count 208 X10*3/uL (160-400); Red Blood Count 3.79 X10*6/uL (4.60-5.80); White Blood Count 9.9 X10*3/uL (4.8-10.8)
[2024-10-15 06:51] LABS: Anion Gap 9 (12-20); Blood Urea Nitrogen 15 mg/dL (9-16); Calcium 9.2 mg/dL (8.4-10.2); Carbon Dioxide 26 mmol/L (22-29); Chloride 110 mmol/L (96-108); Creatinine Clr Calc Pharmacy 99.6; Estimated Glomerular Filt Rate > 60; Glucose Fasting 118 mg/dL (60-99); Potassium 3.6 mmol/L (3.3-5.1); Sodium 141 mmol/L (135-145)
[2024-10-15 07:51] VITALS: BP 166/79; PULSE 52; RESP 18; TEMP 36.9; O2SAT 96
[2024-10-15 08:40] VITALS: BP 166/79
[2024-10-15] MEDS: allopurinoL 100 MG TABLET PO (08:40)
[2024-10-15] MEDS: Docusate Sodium 100 MG CAPSULE PO ×2 (08:40→21:41)
[2024-10-15] MEDS: 0.9 % Sodium Chloride Flush 3 ML SYRINGE IVFLUSH ×3 (08:40→21:47)
[2024-10-15] MEDS: hydroCHLOROthiazide 12.5 MG TABLET PO (08:40)
[2024-10-15] MEDS: Celecoxib 200 MG CAPSULE PO ×2 (08:40→21:41)
[2024-10-15] MEDS: Multivitamin TABLET 1 TAB PO (08:40)
--- NOTE | 2024-10-15 09:06 | PM.PNORT ---
Subjective Subjective Date of Service: 10/15/24 Interval history: POD2 s/p right quad tendon repair after re-rupture Patient is resting in bed comfortably No overnight events Pain is managed No additional complaints Physical Exam Vital Signs: Vital Signs: Last Vital Signs Temp 98.4 F 10/15/24 07:51 Pulse 52 10/15/24 07:51 Resp 18 10/15/24 07:51 BP 166/79 H 10/15/24 08:40 Pulse Ox 96 10/15/24 07:51 O2 Del Method Room Air 10/15/24 07:51 O2 Flow Rate 2 10/13/24 17:11 BMI result Body Mass Index 34.4 Const: General: cooperative, healthy appearing and no acute distress Resp: Effort & Inspection: normal respiratory effort and able to speak in complete sentences Cardio: Rate: regular rate Peripheral pulses: Peripheral pulses 2+ throughout GI: Palpation (GI): Soft to palpation Skin: Lesions: no lesions Rashes: no rashes Extrem: Other: right knee dressing is c/d/i. Able to dorsi/plantar flex. Calf is supple and nontender. Sensation intact. Pedal pulse intact. Procedures Date of Service Date of Service: 10/15/24 Progress Note: A&P Assessment and plan (1) Rupture of right quadriceps tendon: Status: Acute Plan Continue pain mgmnt Brace to remain on at all times LAURA wrap can remain inplace for edema management Dressing to remain on at all times WBAT in the brace locked in extension Begin PT for s/p second quad tendon repair - initial surgery 09/29/24 - fell on 09/30/24 re-rupturing quad tenon Dispo planning-Pending PT eval, pain mgmnt, rehab placement Time Spent With Patient Time: Total time managing care of this patient today ____ minutes. Quality Stroke Does the patient have a stroke diagnosis?: No VTE Prior VTE?: No VTE Risk Level:: Medical - moderate - high VTE Device Contraindication: N/A - Device Ordered VTE Drug Contraindication: N/A - Med Ordered
[2024-10-15 15:17] VITALS: BP 123/63; PULSE 54; RESP 18; TEMP 36.4; O2SAT 97
[2024-10-15 19:26] VITALS: BP 149/67; PULSE 52; RESP 20; TEMP 36.4; O2SAT 97
[2024-10-15] MEDS: Atorvastatin Calcium 20 MG TABLET PO (21:41)
[2024-10-15] MEDS: oxyCODONE HCl ER 10 MG TAB.ER.12H PO (21:46)
[2024-10-16 02:20] VITALS: RESP 16
[2024-10-16 03:33] VITALS: BP 110/54; PULSE 51; RESP 16; TEMP 36.2; O2SAT 95
[2024-10-16 06:08] LABS: MANUAL DIFF FLAG NO
[2024-10-16 06:25] LABS: Basophils Absolute Auto 0.1 X10*3/uL (0.0-0.2); Basophils Percent Auto 1.4 % (0-2); Eosinophils Absolute Auto 0.6 X10*3/uL (0.0-0.4); Eosinophils Percent Auto 6.9 % (0-4); Hematocrit 36.7 % (42.0-52.0); Imm Gran Abs Auto 0.03 X10*3/uL (0.00-0.03); Imm Gran Pct Auto 0.3 % (0.0-0.4); Mean Corpuscular HGB Conc 35.4 g/dl (31.0-36.0); Mean Corpuscular Hemoglobin 33.8 pg (27.0-33.0); Mean Corpuscular Volume 95.3 fL (80.0-98.0); Mean Platelet Volume 10.8 fL (9.4-12.4); Monocytes Absolute Auto 0.9 X10*3/uL (0.1-1.2); Monocytes Percent Auto 9.6 % (2-11); Neutrophils Absolute Auto 5.5 x10*3/uL (2.0-8.3); Neutrophils Percent Auto 59.8 % (45-73); Platelet Count 229 X10*3/uL (160-400); Red Blood Count 3.85 X10*6/uL (4.60-5.80); Red Cell Distribution Width 13.1 % (11.0-16.0); White Blood Count 9.2 X10*3/uL (4.8-10.8)
[2024-10-16 06:28] LABS: Anion Gap 12 (12-20); Blood Urea Nitrogen 18 mg/dL (9-16); Calcium 8.8 mg/dL (8.4-10.2); Carbon Dioxide 26 mmol/L (22-29); Chloride 107 mmol/L (96-108); Estimated Glomerular Filt Rate > 60; Glucose Fasting 104 mg/dL (60-99); Potassium 4.1 mmol/L (3.3-5.1); Sodium 141 mmol/L (135-145)
[2024-10-16 07:14] VITALS: BP 113/56; PULSE 51; RESP 16; TEMP 36.4; O2SAT 94
--- NOTE | 2024-10-16 07:32 | PM.PNORT ---
Subjective Subjective Date of Service: 10/16/24 Interval history: POD3 s/p right quad tendon repair after re-rupture Patient is resting in bed comfortably No overnight events Pain is managed No additional complaints Physical Exam Vital Signs: Vital Signs: Last Vital Signs Temp 97.5 F 10/16/24 07:14 Pulse 51 10/16/24 07:14 Resp 16 10/16/24 07:14 BP 113/56 L 10/16/24 07:14 Pulse Ox 94 10/16/24 07:14 O2 Del Method Room Air 10/16/24 07:14 O2 Flow Rate 2 10/13/24 17:11 BMI result Body Mass Index 34.4 Const: General: cooperative, healthy appearing and no acute distress Resp: Effort & Inspection: normal respiratory effort and able to speak in complete sentences Cardio: Rate: regular rate Peripheral pulses: Peripheral pulses 2+ throughout GI: Palpation (GI): Soft to palpation Skin: Lesions: no lesions Rashes: no rashes Extrem: Other: right knee dressing is c/d/i. Able to dorsi/plantar flex. Calf is supple and nontender. Sensation intact. Pedal pulse intact. Procedures Date of Service Date of Service: 10/16/24 Progress Note: A&P Assessment and plan (1) Rupture of right quadriceps tendon: Status: Acute Plan Continue pain mgmnt Brace to remain on at all times LAURA wrap can remain inplace for edema management Dressing to remain on at all times WBAT in the brace locked in extension Begin PT for s/p second quad tendon repair - initial surgery 09/29/24 - fell on 09/30/24 re-rupturing quad tenon Dispo planning-PT, pain mgmnt, rehab placement Time Spent With Patient Time: Total time managing care of this patient today ____ minutes. Quality Stroke Does the patient have a stroke diagnosis?: No VTE Prior VTE?: No VTE Risk Level:: Medical - moderate - high VTE Device Contraindication: N/A - Device Ordered VTE Drug Contraindication: N/A - Med Ordered
[2024-10-16 08:53] VITALS: BP 132/61
[2024-10-16] MEDS: hydroCHLOROthiazide 12.5 MG TABLET PO (08:53)
[2024-10-16] MEDS: Docusate Sodium 100 MG CAPSULE PO (08:55)
[2024-10-16] MEDS: Multivitamin TABLET 1 TAB PO (08:55)
[2024-10-16] MEDS: Celecoxib 200 MG CAPSULE PO (08:55)
[2024-10-16] MEDS: allopurinoL 100 MG TABLET PO (08:55)
[2024-10-16] MEDS: 0.9 % Sodium Chloride Flush 3 ML SYRINGE IVFLUSH (08:56)
--- NOTE | 2024-10-16 09:30 | MHC.CM.PN ---
PT REPORTS HE WENT TO [facility] AFTER HIS LAST SURGERY AND THEN WENT TO STAY WITH HIS BROTHER HE TYPICALLY LIVES ALONE AND IS INDEPENDENT WITH CARE HE HAS BEEN USING A WALKER SINCE PREVIOUS SURGERY HE HAS A HCP ON FILE, BUT WOULD LIKE TO COMPLETE A NEW ONE PCP: JAMESON SANTACRUZ DCP TBD: ACUTE REHAB VS STR VS RETURN TO BROTHERS HOME WITH [facility] TRANSPORT TBD BY DISPO
--- NOTE | 2024-10-16 09:56 | MHC.CM.PN ---
Addendum entered by Candice Urias RN 10/16/24 10:57: Per ortho team, cleared for dc to [place]. BLS transport scheduled for 2pm to [facility]. RUPERTO, RN and patient aware. Original Note: Patient completed HCP naming his son, Angel, as HCA. Accepted bed @ [facility], as first choice [facility] was unable to offer. CM will continue to follow.
--- NOTE | 2024-10-16 11:03 | PM.DS ---
DS: Providers Provider Date of Service: 10/16/24 Date of discharge: 10/16/24 Primary care physician: MAURILIO Cortez Consults: 10/13/24 17:38 Consult to Hospitalist Routine Comment: Consulting Provider: [facility] Hospitalists Reason For Exam: routine medical management DS: Diagnosis Discharge Diagnosis (1) Rupture of right quadriceps tendon: Status: Acute DS: Summary Hospital Course Hospital Course: The patient underwent a right quad tendon repair on 09/29/24, the patient was discharged home and fell causing re-rupture of the quad tendon. He underwent a second quad tendon repair on 10/13/24, they were transferred to PACU and then to the floor to recover. During their stay, their vitals were stable, afebrile at 97.5. Labs were unremarkable, H/H 13.0/36.7. He received Physical Therapy services twice a day. Prior to discharge, their dressing was clean dry and intact, and the plan was to be discharged to rehab. Brace is to remain on at all times locked in extension Do not bend the knee WBAT with walker/crutches Time Attestation Discharge Coordination Time (in mins): 30 Quality: Safe Use of Opioids Does Pt have an Active Cancer Diagnosis on the Problem List?: No Quality: Stroke Does the patient have a stroke diagnosis?: No Physical Exam Vital Signs: Vital Signs: Last Vital Signs Temp 97.5 F 10/16/24 07:14 Pulse 51 10/16/24 07:14 Resp 16 10/16/24 07:14 BP 132/61 10/16/24 08:53 Pulse Ox 94 10/16/24 07:14 O2 Del Method Room Air 10/16/24 07:14 O2 Flow Rate 2 10/13/24 17:11 BMI result Body Mass Index 34.4 Const: General: cooperative, healthy appearing and no acute distress Resp: Effort & Inspection: normal respiratory effort and able to speak in complete sentences Cardio: Rate: regular rate Peripheral pulses: Peripheral pulses 2+ throughout Skin: Lesions: no lesions Rashes: no rashes Extrem: Other: right knee dressing is c/d/i. Able to dorsi/plantar flex. Calf is supple and nontender. Brace is on and locked in extension. Sensation intact. Pedal pulse intact. DS: Data Data Completed and Pending Completed studies during hospitalization [Text1]: Procedures Detachment at Left 1st Toe, Complete, Open Approach (06/26/22) Fluoroscopy of Superior Vena Cava, Guidance (03/09/23) Insertion of Infusion Device into Superior Vena Cava, Percutaneous Approach (03/09/23) Ultrasonography of Superior Vena Cava, Guidance (04/08/22) Labs on day of discharge: Laboratory Results - last 24 hr 10/16/24 05:39 WBC 9.2 RBC 3.85 L Hgb 13.0 L Hct 36.7 L MCV 95.3 MCH 33.8 H MCHC 35.4 RDW 13.1 Plt Count 229 MPV 10.8 Immature Gran % (Auto) 0.3 Neut % (Auto) 59.8 Lymph % (Auto) 22.0 Braxton % (Auto) 9.6 Eos % (Auto) 6.9 H Baso % (Auto) 1.4 Lymph # (Auto) 2.0 Braxton # (Auto) 0.9 Eos # (Auto) 0.6 H Baso # (Auto) 0.1 Abs Immat Gran (auto) 0.03 Absolute Neuts (auto) 5.5 Absolute Nucleated RBC 0.000 Nucleated RBC % (auto) 0.0 Sodium 141 Potassium 4.1 Chloride 107 Carbon Dioxide 26 Anion Gap 12 BUN 18 H Creatinine 0.89 Estim Creat Clear Calc 94.0 Estimated GFR > 60 Fasting Glucose 104 H Calcium 8.8 Discharge Plan Discharge Patient Disposition: Xfer Inpatient Rehab Fac Referrals: [facility] [Outside] - 1 Day (acute rehab) Juliet Whitaker PA-C [Physician [employer]] - 10/19/24 1:15 pm Discharge Medications: New acetaminophen 325 mg Tablet 650 mg PO Q6H PRN (Reason: Pain, Mild 1-3,Fever,Headache) 30 Days Qty: 240 0RF docusate sodium 100 mg Capsule 100 mg PO BID 30 Days Qty: 60 0RF oxycodone 5 mg Tablet 5 mg PO Q4H PRN (Reason: Pain, Moderate(Pain Scale 4-6)) 7 Days Qty: 42 0RF Rx Instructions: Partial Fill upon patient request. Continued allopurinol 100 mg tablet 100 mg PO DAILY 90 Days Qty: 90 1RF hydrochlorothiazide 12.5 mg tablet 12.5 mg PO DAILY Qty: 90 1RF celecoxib 200 mg Capsule 200 mg PO BID 30 Days Qty: 60 0RF atorvastatin 20 mg tablet 20 mg PO BEDTIME multivitamin Tablet 1 tab PO DAILY omega 8-evy-knp-fish oil [Fish Oil] 1,000 mg (120 mg-180 mg) Capsule 1 cap PO DAILY Glucosamine 1 tab PO DAILY Discharge Orders: Discharge Order (Routine); Ordered 10/16/24 Ordered By: Juliet Whitaker Diet: Advance to usual diet Activity on Discharge: Use cane or walker Activity Restrictions/Additional Instructions: Keep the bandage clean, dry, and intact. Brace to remain ON AT ALL TIMES BRACE TO BE LOCKED IN EXTENSION AT ALL TIMES Weightbearing with crutches or walker Elevate, ice, perform ankle pumps Follow up with orthopedics 14 days post op Print Language: Dominican
[2024-10-16 14:07] VITALS: BP 120/62; PULSE 58; RESP 18; TEMP 36.5; O2SAT 95
[2024-10-16 15:38] VITALS: BP 124/60; PULSE 55; RESP 16; TEMP 36.3; O2SAT 96
== END 2024-10-16 16:26 ==
LOC: HO.SSS 13:16 → HO.S3 15:38
PROVIDERS: Physician Assistant; PCP Nurse Practitioner Family; Visit Provider Orthopaedic Surgery
PROC: (CPT 29870; principal; 2024-10-13 15:40)
DX: S76.111A Strain of right quadriceps muscle, fascia and tendon, initial encounter (principal); Z98.890 Other specified postprocedural states; W01.0XXA Fall on same level from slipping, tripping and stumbling without subsequent striking against object, initial encounter; Y93.01 Activity, walking, marching and hiking; Y92.9 Unspecified place or not applicable; Y99.8 Other external cause status; L76.32 Postprocedural hematoma of skin and subcutaneous tissue following other procedure; Y83.9 Surgical procedure, unspecified as the cause of abnormal reaction of the patient, or of later complication, without mention of misadventure at the time of the procedure; I10 Essential (primary) hypertension; E78.5 Hyperlipidemia, unspecified; M10.9 Gout, unspecified; Z89.412 Acquired absence of left great toe; Z79.899 Other long term (current) drug therapy
CPT/HCPCS: 27386; 36415; 80048; 85025; 97161; C1763; J0131; J0690; J1100; J2003; J2250; J2405; J2704; J2795; J3010; J7120

== ENCOUNTER → 2024-10-13 13:14 | Outpatient (BNV) | payer MEDICARE, SELFPAY | PROVIDERS: PCP Nurse Practitioner Family; Visit Provider Orthopaedic Surgery | DX: S76.111A Strain of right quadriceps muscle, fascia and tendon, initial encounter (principal) | CPT/HCPCS: 99024 ==

== ENCOUNTER → 2024-10-13 13:14 | Outpatient (BNV) | payer MEDICARE, SELFPAY | PROVIDERS: PCP Nurse Practitioner Family; Visit Provider Student in an Organized Health Care Education/Training Program | DX: I10 Essential (primary) hypertension (principal); S76.111A Strain of right quadriceps muscle, fascia and tendon, initial encounter | CPT/HCPCS: 99222 ==

== ENCOUNTER 2024-10-25 12:59 | Outpatient (AMB) | payer MEDICARE, SELFPAY ==
--- NOTE | 2024-10-25 13:09 | A.OFFVIS_ITS ---
Intake Visit Reasons: PO RT knee explor/poss quad ten repair 10/13/24 NE Intake Note: Jorge is a 69 year old male who presents today for a post operative appointment s/p RT RIGHT QUAD TENDON REPAIR 10/13/24 NE. Patient reports he is doing well. He expressed that he was able to lift his leg up on his own without assistants from his other leg. Allergies No Known Allergies [No Known Allergies*] Allergy (Verified 10/25/24 13:10) HPI HPI PO RT knee explor/poss quad ten repair 10/13/24 NE: Details: Mr. Guardado this is a 69-year-old male who underwent a right quadricep tendon repair initially on 09/29/2024. Unfortunately, the patient sustained a fall on 09/30/2024 causing rerupture of the right quad tendon. Patient was brought back to the operating room on 10/13/2024 for quad tendon repair. He presents to the office today in the ACL brace fitted appropriately locked in extension. He is weight-bearing as tolerated with the use of crutches. He is overall doing very well and reports little to no pain. He is no longer taking any narcotics for pain. [facility] Medical History (Updated 10/25/24 @ 13:56 by Juliet Whitaker PA-C) Rupture of right quadriceps tendon Gout Paronychia of great toe Elevated TSH Obesity Screening PSA (prostate specific antigen) HTN (hypertension) Varicose veins of both lower extremities Surgical History History of amputation of left great toe (07/01/22) Hx of hand surgery Status post debridement (06/16/22) Hx of vascular surgery Hx of colonoscopy Family History Father HTN (hypertension) Mother Parkinsons disease Social History Household Members: Family Housing: House Are you a primary healthcare administrator to a significant other at home: No Do you presently have visiting nurse or other home services: No Alcohol intake: current Alcohol intake frequency: a few times a month Comment: falling start, wrist band, socks in place Patient Tobacco Use Status: Never used Tobacco e-Cigarette/Vaping Use: Never Used Second Hand Smoke Exposure: No Advance Directives Date on File: 10/13/23 service: No Current occupational status: retired Cognitive needs: No Hearing needs: No Vision needs: No Review of Systems Const All systems reviewed & are unremarkable except as noted in HPI and below Physical Exam Const General: cooperative, healthy appearing and no acute distress Resp Effort & Inspection: normal respiratory effort and able to speak in complete sentences Cardio Rate: regular rate Peripheral pulses: Peripheral pulses 2+ throughout Skin Lesions: no lesions Rashes: no rashes Extrem Other: Right knee: Ken intact no surrounding erythema or drainage no signs of infection. NVI. Assessment & Plan Assessment & Plan (1) Rupture of right quadriceps tendon: Comment: repair 09/29/24 with re-rupture on 09/30/24 Repair again performed on 10/13/24 Code(s): S76.111A - Strain of right quadriceps muscle, fascia and tendon, initial encounter Category: Medical Plan Mr. Guardado this is a 69-year-old male who underwent a right quadricep tendon repair initially on 09/29/2024. Unfortunately, the patient sustained a fall on 09/30/2024 causing rerupture of the right quad tendon. Patient was brought back to the operating room on 10/13/2024 for quad tendon repair. He presents to the office today in the ACL brace fitted appropriately locked in extension. He is weight-bearing as tolerated with the use of crutches. He is overall doing very well and reports little to no pain. He is no longer taking any narcotics for pain. While the office today, patient ken removed and Steri-Strips were applied. Placed back into the ACL brace locked in extension. Patient was educated on the importance of strict extension without bending to preserve the integrity of the quadriceps tendon repair. He will follow up in [address] Celis, sooner if needed. Coding Level of Care Code Global (92199) Diagnoses Rupture of right quadriceps tendon S76.111A
--- OUTSIDE RECORDS SUMMARY | 2024-10-25 15:07 | XMS_ITS | Encounter Summary ---
Author Organization [facility] Address [address] [place] [address] Care Team Providers Care Information Systems Project Manager Name Role Phone Fausto Pat NP Primary Care Provider Encounter Details Date Type Department Care Team (Late st Contact Info) Description 10/18/2024 Plan of Care Documentation [facility] [address] [place] [place] [phone] Social History Tobacco Use Types Packs/Day Years Used Date Smoking Tobacco: Never Smokeless Tobacco: Never Alcohol Use Standard Drinks/Week Comments Yes 2 (1 standard drink = 0.6 oz pur e alcohol) Socially Health Literacy Answer Date Recorded How often do you need to hav e someone help you when you read instructions, pamphlets, or other written material from your doctor or pharmacy? Never 10/18/2024 Caregiver: How often do you need to have someone help you when you read instructions, pamphlets, or other written material from your doctor or pharmacy? Not on file 10/18/2024 Transportation Answer Date Recorded Has the lack of transportati on kept you from meetings, work, or from getting things needed for daily living? No Has the lack of transportati on kept you from medical appointments or from getting medications? No 10/17/2024 Social Isolation Answer Date Recorded How often do you feel lonely or isolated from th ose around you? Never 10/18/2024 Interpersonal Safety Answer Date Record ed Physical Abuse 10/16/2024 Verbal Abuse 10/16/2024 Sex and Gender Information Value Date Recorded Sex Assigned at Male 10/16/2024 9:58 AM EST Legal Sex Male 10:48 AM EST Gender Identity Male 10/16/2024 9:58 AM EST Sexual Orientation Straight 10/16/2024 9: 58 AM EST documented as of this encounter Progress Notes * Debby Santiago, OT - 10/18/2024 11:56 AM EST Physical Medicine and Rehabilitation Team Conference Interdisciplinary Team Meeting Patient Name: Jorge Guardado Date of : 1955 Sex: Male Payor Info: Payor: MEDICARE / Plan: MEDICARE PART A & B / Product Type: Medicare / Admitting Diagnosis: Quadriceps tendon rupture, right, initial encounter [S76.111A] Admit Date/Time: 10/16/2024 4:33 PM Primary Rehab (Etiologic) Diagnosis: Patient Active Problem List Diagnosis Quadriceps tendon rupture, right, initial encounter Team Discussion UPDATES: Physician: 69 year-old male past medical history, significant for hypertension, obesity, gout who presented to [facility] orthopedic office on September 27, 2024 with complaints of right knee pain since 09/18/2024. At that time, he had a fallen ice and was unable to get up and extend the leg. He was seen in the emergency department where he was found to have a probable defect on examine placed in an immobilizer and was referred to the orthopedic office. Patient underwent a right quadriceps tendon rupture repair on September 29, 2024 by he was dc to [facility]. On 09/30 he sustained a mechanical fall where he slipped and fell hardwood floors, complaining of knee pain he re- ruptured his quad tendon. He underwent surgical intervention again on 10/13 without complications. He was then admitted to the hospital. Orthopedics recommended brace to remain on at all times, dressing to remain on at all times, weight, bear as tolerated with brace locked and extension. RN: Paramjit wrap, hinge brace. W OT: Mod I as of today, no further OT recommended. PT: Doing well, Mod I. F/U with OP PT post orthopedics CM: Patient lives alone with his dog and cat in 1 level home 3 steps to enter from the back porch.Patient was independent with his ADLs and IADLs ambulates with no device, drives,manages his own meds. Patient is and retired receives SS and pension.Patient has 2 sons Angel (HCP on file)who is local lives in [place] and Justin in [place].Patient also has a brother Adrian who lives 5 houses away.Patient main support on discharge would be his brother he may go to his brothers home on discharge.Patient denies any hx of depression or anxiety.Denies Tobacco and LEDESMA occasional ETOH on the weekend (couple beers). CM discussed discharge plan with patient.Plan is to return home he is agreeable to VNA services on discharge if needed.Brother to provide transport on discharge. Expected Discharge Date: 10/19/24 Risk Adjusted Scores: OT Current: 42 OT Goal: PT Current: 65 PT Goal: Follow-up Services: Outpatient physical therapy Other tbd Equipment Needed: other axillary crutches Barriers to Achieving Rehab Goals: knee brace Occupational Therapy Assessment Overall Cognitive Status Overall Cognitive Status: Within Functional Limits Precautions Precautions Safety Interventions: Call castorena within reach, ID band on RLE Weight Bearing Status: As Tolerated Orthopedic Precautions: (NO BENDING KNEE) Orthoses Applied: Knee Immobilizer (on AAT. Hinge brace locked in extension) ADL Assessment Eating Assistance Needed: Independent CARE Score - Eatin Oral Hygiene Assistance Needed: Independent CARE Score - Oral Hygiene: 6 Toileting Hygiene Assistance Needed: Independent CARE Score - Toileting Hygiene: 6 Shower/Bathe Self Assistance Needed: Independent Physical Assistance Level: No physical assistance Comment: sponge CARE Score - Shower/Bathe Self: 6 Upper Body Dressing Assistance Needed: Independent CARE Score - Upper Body Dressin Lower Body Dressing Assistance Needed: Independent Physical Assistance Level: No physical assistance CARE Score - Lower Body Dressin Putting On/Taking Off Footwear Assistance Needed: Independent Physical Assistance Level: No physical assistance Comment: use of media center specialist and sock aid CARE Score - Putting On/Taking Off Footwear: 6 Functional Transfers Toilet Transfer Assistance Needed: Independent Comment: elevated seat and crutches CARE Score - Toilet Transfer: 6 OT Assessment Results: OT Assessment Results: Decreased ADL status, Decreased endurance, Decreased IADLs Evaluation/Treatment Tolerance: Evaluation/Treatment Tolerance: Patient tolerated treatment well Comments: Plan Treatment/Interventions: Treatment Interventions: ADL retraining OT Plan: OT Plan: Skilled OT Discharge Recommendations: OT Discharge Recommendations: Home independent Equipment Recommended: Barriers to Discharge: Physical Therapy Assessment Bed Mobility Roll Left and Right Assistance Needed: Independent CARE Score - Roll Left and Right: 6 Sit to Lying Assistance Needed: Independent CARE Score - Sit to Lyin Lying to Sitting on Side of Bed Assistance Needed: Independent CARE Score - Lying to Sitting on Side of Bed: 6 Transfers Sit to Stand Assistance Needed: Independent Physical Assistance Level: No physical assistance Comment: dharaches CARE Score - Sit to Stand: 6 Chair/Mjv-op-Sfskk Transfer Assistance Needed: Independent Physical Assistance Level: No physical assistance Comment: crutches CARE Score - Chair/Geg-wy-Zocgt Transfer: 6 Car Transfer Assistance Needed: Independent Reason if not Attempted: Environmental limitations CARE Score - Car Transfer: 6 Picking Up Object Assistance Needed: Independent Physical Assistance Level: No physical assistance Comment: media center specialist CARE Score - Picking Up Object: 6 Wheelchair Ambulation Walk 10 Feet Assistance Needed: Independent Comment: crutches CARE Score - Walk 10 Feet: 6 Walk 50 Feet with Two Turns Assistance Needed: Independent Comment: crutches CARE Score - Walk 50 Feet with Two Turns: 6 Walk 150 Feet Assistance Needed: Independent Comment: crutches CARE Score - Walk 150 Feet: 6 Walking 10 Feet on Uneven Surfaces Assistance Needed: Independent Comment: crutches CARE Score - Walking 10 Feet on Uneven Surfaces: 6 Stairs/Curb step 1 Step (Curb) Assistance Needed: Independent Physical Assistance Level: No physical assistance Comment: 1 railing and crutch CARE Score - 1 Step (Curb): 6 4 Steps Assistance Needed: Independent Physical Assistance Level: No physical assistance Comment: 1 railing and crutch CARE Score - 4 Steps: 6 12 Steps Assistance Needed: Independent Physical Assistance Level: No physical assistance Comment: 1 railing and crutch CARE Score - 12 Steps: 6 Precautions Precautions Safety Interventions: Call castorena within reach, ID band on RLE Weight Bearing Status: As Tolerated Orthopedic Precautions: (NO BENDING KNEE) Orthoses Applied: Knee Immobilizer (on AAT. Hinge brace locked in extension) PT Assessment Results: Orthopedic Precautions: (NO BENDING KNEE) Evaluation/Treatment Tolerance: Evaluation/Treatment Tolerance: Patient tolerated treatment well Comments: Plan Treatment/Interventions: Treatment/Interventions: Functional transfer training, LE strengthening/ROM, Gait training, Balance training PT Plan: PT Plan: Skilled PT Discharge Recommendations: Equipment Recommended: Barriers to Discharge: Nurse's Assessment Fall Risk Assessment Last Known Fall: Within the last month Mobility: Dizziness/generalized weakness Toileting Needs: Noneeds Mental Status/LOC/Awareness: Awake, alert, and oriented to date, place, and person Communication/Sensory: Visual (Glasses)/hearing deficit Behavior: Appropriate behavior Medications: Cardiovascular or central nervous system meds Volume/Electrolyte Status: No problems Shiela Daly Fall Risk Total: 9 Skin Assessment Sensory Perceptions: No impairment Moisture: Rarely moist Activity: Walks frequently Mobility: Slightly limited Nutrition: Excellent Friction and Shear: Potential problem Lawson Scale Score: 21 Pain Assessment Pain Assessment: No/denies pain Pain Score: 0 - No pain Pain Location: Leg Pain Orientation: Right Bowel Management Bowel Program/Regime: Bowel Continence Status: No movement Last BM Date: 10/16/24 Bladder Management Bladder Scan Protocol: Bladder Continence Status: Continent void Toileting Digital Camera Technician's Assessment Adult [facility]; General; Regular Physician Attestation: Cynthia Camilo DO, have led the team conference and agree with the results, findings, and decisions made by the interdisciplinary team. documented in this encounter Plan of Treatment Not on file documented as of this encounter Visit Diagnoses Not on filedocumented in this encounter Additional Health Concerns Assessment Noted Time PHQ-9 Depression Total Score: 0 10/19/19 25 2:42 PM EST documented as of this encounter Care Teams Information Systems Project Manager Relationship Specialty Start Date End Date Fausto Pat NP [address] [place], [place] PCP - General Family Medicine 10/17/24 documented as of this encounter
--- OUTSIDE RECORDS SUMMARY | 2024-10-25 15:07 | XMS_ITS | Encounter Summary ---
Author Organization [facility] Address [address] [place] [address] Care Team Providers Care Falsework Builder Name Role Phone Fausto Pat NP Primary Care Provider Encounter Details Date Type Department Care Team (Late st Contact Info) Description 10/10/2024 Lab Requisition [facility] - Main Lab [address] [place] [address] Sara Blanc MD [address] [place] [id number] Encounter for other general examination Social History Tobacco Use Types Packs/Day Years Used Date Smoking Tobacco: Never Assessed Sex and Gender Information Value Date Recorded Sex Assigned at Male 10/16/2024 9:58 AM EST Legal Sex Male 10:48 AM EST Gender Identity Male 10/16/2024 9:58 AM EST Sexual Orientation Straight 10/16/2024 9: 58 AM EST documented as of this encounter Plan of Treatment Not on file documented as of this encounter Procedures Procedure Name Priority Date/Time Associated Diagnosis Comments COMPLETE BLOOD COUNT Routine 10/10/2024 7:22 AM EST Encounter for other general examination COMPREHENSIVE METABOLIC PANEL Routine 10/10/2024 7:22 AM EST Encounter for other general examination documented in this encounter Results * (ABNORMAL) Complete blood count (10/10/2024 7:22 AM EST) [facility] WBC 9.1 4.8 - 10.8 K/mcL LAB HEMETOLOGY METHOD 10/10/2024 11:49 AM [facility] RBC 4.40(L) 4.50 - 5.50 M/mcL LAB HEMETOLOGY METHOD 10/10/2024 11:49 AM [facility] Hemoglobin 14.9 13.5 - 17.5 g/dL LAB HEMETOLOGY METHOD 10/10/2024 11:49 AM [facility] Hematocrit 44.3 42.0 - 54.0 % LAB HEMETOLOGY METHOD 10/10/2024 11:49 AM [facility] MCV 100.2(H) 79.0 - 98.0 FL LAB HEMETOLOGY METHOD 10/10/2024 11:49 AM [facility] MCH 33.7(H) 27.0 - 32.0 pcg LAB HEMETOLOGY METHOD 10/10/2024 11:49 AM [facility] MCHC 33.6 32.0 - 37.0 g/dL LAB HEMETOLOGY METHOD 10/10/2024 11:49 AM [facility] RDW 13.0 11.0 - 15.0 % LAB HEMETOLOGY METHOD 10/10/2024 11:49 AM [facility] Platelets 318 130 - 400 K/mcL LAB HEMETOLOGY METHOD 10/10/2024 11:49 AM [facility] MPV 11.8(H) 7.0 - 11.0 FL LAB HEMETOLOGY METHOD 10/10/2024 11:49 AM [facility] NRBC 0.0 <1.0 % LAB HEMETOLOGY METHOD 10/10/2024 11:49 AM [facility] NRBC Absolute 0.00 <0.10 K/mcL LAB HEMETOLOGY METHOD 10/10/2024 11:49 AM [facility] Blood Venous blood specimen / Unknown Venipuncture / Unknown 10/10/2024 7:22 AM EST 10/10/2024 11:30 AM EST us Sara Blanc MD LAB BLOOD ORDERABLES Final Res ult [facility] [address] [place] [address], [place] [phone] * Comprehensive metabolic panel (10/10/2024 7:22 AM EST) Sodium 139 133 - 145 mmol/L LAB CHEMISTRY METHOD 10/10/2024 1:03 PM [facility] Potassium 4.2 3.5 - 5.5 mmol/L LAB CHEMISTRY METHOD 10/10/2024 1:03 PM [facility] Chloride 103 96 - 110 mmol/L LAB CHEMISTRY METHOD 10/10/2024 1:03 PM [facility] CO2 31 21 - 32 mmol/L LAB CHEMISTRY METHOD 10/10/2024 1:03 PM [facility] Anion Gap 5 3 - 11 LAB CHEMISTRY METHOD 10/10/2024 1:03 PM [facility] Glucose 81 70 - 100 mg/dL LAB CHEMISTRY METHOD 10/10/2024 1:03 PM [facility] BUN 18 5 - 25 mg/dL LAB CHEMISTRY METHOD 10/10/2024 1:03 PM [facility] Creatinine 0.93 0.70 - 1.30 mg/dL LAB CHEMISTRY METHOD 10/10/2024 1:03 PM [facility] eGFR 88 >=60 mL/min/1. 73m2 LAB CHEMISTRY METHOD 10/10/2024 1:03 PM [facility] Comment:Calculation based on the??Chronic Kidney Disease Epidemiology Collaboration (CKD-EPI) equation refit??without adjustment for race. BUN/Creatinine Ratio 19.4 LAB CHEMISTRY METHOD 10/10/2024 1:03 PM [facility] Calcium 9.6 8.5 - 10.5 mg/dL LAB CHEMISTRY METHOD 10/10/2024 1:03 PM [facility] AST (SGOT) 33 10 - 42 unit/L LAB CHEMISTRY METHOD 10/10/2024 1:03 PM [facility] ALT (SGPT) 39 10 - 60 unit/L LAB CHEMISTRY METHOD 10/10/2024 1:03 PM [facility] Alkaline Phosphatase 90 42 - 121 unit/L LAB CHEMISTRY METHOD 10/10/2024 1:03 PM [facility] Total Protein 7.3 6.0 - 8.0 g/dL LAB CHEMISTRY METHOD 10/10/2024 1:03 PM [facility] Albumin 3.6 3.2 - 5.0 g/dL LAB CHEMISTRY METHOD 10/10/2024 1:03 PM [facility] Total Bilirubin 1.4 0.0 - 1.4 mg/dL LAB CHEMISTRY METHOD 10/10/2024 1:03 PM [facility] Blood Venous blood specimen / Unknown Venipuncture / Unknown 10/10/2024 7:22 AM EST 10/10/2024 11:30 AM EST us Sara Blanc MD LAB BLOOD ORDERABLES Final Res ult [facility] [address] [place] [address], documented in this encounter Visit Diagnoses Diagnosis Encounter for other general examination documented in this encounter Care Teams Falsework Builder Relationship Specialty Start Date End Date Fausto Pat NP [address] [place], [place] PCP - General Family Medicine 10/17/24 documented as of this encounter
--- OUTSIDE RECORDS SUMMARY | 2024-10-25 15:07 | XMS_ITS | Encounter Summary ---
Author Organization [facility] [address] Address [address] [place] [address] Care Team Providers Care Equine Breeder Name Role Phone Fausto Pat NP Primary Care Provider Encounter Details Date Type Department Care Team (Latest Contact Info) Description 10/16/2024 4:33 PM EST - 10/19/2024 11:05 AM [facility] Hospital Encounter [facility] [address] [place] [address] Cynthia Bentley, DO [address] [place] [address] Discharge Disposition: Home or Self Care Social History Tobacco Use Types Packs/Day Years Used Date Smoking Tobacco: Never Smokeless Tobacco: Never Tobacco Cessation:Counseling Given: No Alcohol Use Standard Drinks/Week Comments Yes 2 [...] AM EST documented as of this encounter Last Filed Vital Signs Vital Sign Reading Time Taken Comments Blood Pressure 111/59 10/19/2024 7:30 AM EST Pulse 56 10/19/2024 7:30 AM EST Temperature 37 ??C (98.6 ??F) 10/19/2024 7:30 AM EST Respiratory Rate 16 10/19/2024 7:30 AM EST Oxygen Saturation 97% 10/19/2024 7:30 AM EST Inhaled Oxygen Concentration - - Weight 108 kg (237 lb 12.8 oz) 10/17/2024 3:45 P M EST Height - - Body Mass Index 34.04 10/16/2024 11:22 AM EST documented in this encounter Discharge Summaries * Kamla Curiel RN - 10/19/2024 9:39 AM EST Leave dsg on right leg on until seen by at f/u appointment. They will remove it and give any newdirections to you. * Cynthia Bentley DO - 10/19/2024 7:34 AM EST Images from the original note were not included. PHYSICAL MEDICINE AND REHABILITATION Discharge Summary Patient Name: Jorge Guardado Date of : 1955 Sex: Male Admit Date/Time: 10/16/2024 4:33 PM Discharge Date: 10/19/24 HPI: From H&P: This is a 69 year-old male past medical history, significant for hypertension, obesity, gout who presented to [facility] orthopedic office on September 27, 2024 [...] 29, 2024 by he was dc to [facility] rehab. On 09/30 he sustained a mechanical fall where he slipped and fell hardwood floors, complaining of knee pain he re-ruptured his quad tendon. He underwent surgical intervention again on 10/13 without complications. He was then admitted to the hospital. Orthopedics recommended brace to remain on atall times, dressing to remain on at all times, weight, bear as tolerated with brace locked and extension. He was stabilized and sent to this facility on 10/16 for pt/ot and nursing care HOSPITAL COURSE: #Right quadriceps tendon rupture #S/p re-rupture -S/p surgical repair 09/29 & 10/13 Dr Celis at [facility] -R hinged brace on at all times, do not bend, locked in extension -WBAT to RLE with knee immobilizer in place -continue therapies -f/u Orthopedics after discharge #Pain control -Tylenol 650 mg Q6H PRN -Celebrex 200 mg BID -Oxycodone 5 mg Q4H PRN #Hypertension -Hydrochlorothiazide 12.5 mg daily #Hyperlipidemia -Atorvastatin 20 mg nightly #Hx of gout -Allopurinol 100 mg daily #Bowel management -Colace 100mg BID #DVT ppx: Lovenox 40 mg daily ([facility] confirmed that patient needs to continue Lovenox for DVT ppx x6 weeks post-op) PHYSICAL EXAMINATION: Vitals: 10/18/24 0945 10/18/24 1523 10/19/24 0526 10/19/24 0550 BP: (!) 142/62 114/59 125/67 BP Location: Left arm Right arm Patient Position: Sitting Lying Pulse: 58 58 50 58 Resp: 17 16 Temp: 36.8 ??C (98.2 ??F) 36.7 ??C (98.1 ??F) TempSrc: Oral Oral SpO2: 97% 98% 96% Weight: General: Alert, in no acute cardiopulmonary distress. Mental Status: Oriented to person, place and time. Normal affect. Head: Normocephalic. Eyes: Pupils are equal, round and reactive to light. Extraocular muscles intact. Ear, Nose and Throat: Oropharynx clear, mucous membranes moist. Ears and nose without masses, lesions or deformities. Neck: Supple, Trachea midline. Respiratory: Clear to auscultation and percussion. No wheezing, rales or rhonchi. Cardiovascular: Heart sounds normal. No thrills. Regular rate and rhythm, no murmurs, rubs or gallops. Gastrointestinal: Abdomen soft, non-tender, non-distended. Normal bowel sounds. Genitourinary: No costovertebral angle tenderness. Neurologic: Cranial nerves II-XII intact. No focal neurological deficits. Deep tendon reflexes +2 bilaterally. Negative Hoffmans sign bilaterally. Flexor plantar response bilaterally. Negative clonusbilaterally. Moves all extremities spontaneously. Sensation intact bilaterally. Skin: No rashes or lesions. No petechiae or purpura. No edema. + Right knee dressing C/D/I able to plantar flex and dorsi flex Musculoskeletal: No cyanosis or clubbing. No gross deformities. Normal range of motion. Strength 5/5 to b/l UE and LLE. Strength difficult to access to RLE due to pain. + Hinge brace in locked extension to RLE LABS: Lab Results Component Value Date WBC 9.8 10/17/2024 RBC 3.90 (L) 10/17/2024 HGB 13.0 (L) 10/17/2024 HCT 37.4 (L) 10/17/2024 MCV 96.9 10/17/2024 MCHC 34.8 10/17/2024 RDW 12.9 10/17/2024 PLT 228 10/17/2024 MPV 10.8 10/17/2024 NRBC 0.0 10/17/2024 DIFF Lab Results Component Value Date LYMPHOPCT 18.1 10/17/2024 NEUTROABS 6.31 10/17/2024 LYMPHSABS 1.78 10/17/2024 MONOABS 0.87 10/17/2024 EOSABS 0.69 (H) 10/17/2024 BASOSABS 0.12 10/17/2024 IMMGRANABS 0.04 (H) 10/17/2024 RETIC No results found for: RETIC , RETICCTPCT Lab Results Component Value Date NA 138 10/17/2024 K 4.2 10/17/2024 CL 105 10/17/2024 CO2 27 10/17/2024 GLUCOSE 106 (H) 10/17/2024 BUN 19 10/17/2024 CREATININE 1.08 10/17/2024 CALCIUM 9.1 10/17/2024 PROT 6.3 10/17/2024 ALBUMIN 2.9 (L) 10/17/2024 BILITOT 0.9 10/17/2024 AST 17 10/17/2024 ALT 30 10/17/2024 MG 2.1 10/05/2024 ALKPHOS 76 10/17/2024 EGFR 73 10/17/2024 IMAGING: None DISCHARGE MEDICATIONS: Your medication list START taking these medications Instructions Last Dose Given Next Dose Due enoxaparin 40 mg/0.4 mL syringe Commonly known as: LOVENOX Inject 0.4 mL (40 mg total) under the skin 1 (one) time each day. CONTINUE taking these medications Instructions Last Dose Given Next Dose Due acetaminophen 325 mg tablet Commonly known as: TYLENOL Take 2 tablets (650 mg total) by mouth every 6 (six) hours if needed for mild pain, headaches or fever - temperature GREATER than 38 C (100.4 F). allopurinoL 100 mg tablet Commonly known as: ZYLOPRIM Take 1 tablet (100 mg total) by mouth 1 (one) time each day. atorvastatin 20 mg tablet Commonly known as: LIPITOR Take 1 tablet (20 mg total) by mouth at bedtime. celecoxib 200 mg capsule Commonly known as: CeleBREX Take 1 capsule (200 mg total) by mouth 2 (two) times a day. docusate sodium 100 mg capsule Commonly known as: COLACE Take 1 capsule (100 mg total) by mouth 2 (two) times a day. hydroCHLOROthiazide 12.5 mg tablet Take 1 tablet (12.5 mg total) by mouth 1 (one) time each day. multivitamin tablet Take 1 tablet by mouth 1 (one) time each day. STOP taking these medications oxyCODONE 5 mg immediate release tablet Commonly known as: ROXICODONE Where to Get Your Medications These medications were sent to [id number] - [address] AT [address] [address] allopurinoL 100 mg tablet atorvastatin 20 mg tablet celecoxib 200 mg capsule docusate sodium 100 mg capsule enoxaparin 40 mg/0.4 mL syringe hydroCHLOROthiazide 12.5 mg tablet multivitamin tablet DISCHARGE RECOMMENDATIONS: Code Status: Full Code - Default Diet: Regular diet with thin liquids Weight Bearing Precautions: Weight bearing as tolerated to right lower extremity with knee immobilizer in place. Right knee immobilizer/brace at all times aside from removal for skin checks. Wound Care Instructions: Leave surgical dressing in place and follow up with Orthopedics for wound evaluation. Patient/PCP Follow Up Instructions: Follow-up with orthopedics for further management of right quadriceps tendon rupture s/p surgical repair. Continue Lovenox 40 mg daily for DVT prophylaxis x 6 weeks postop as per orthopedic recommendations. DISCHARGE FOLLOW UP APPOINTMENTS: Follow up with Aneta Pat NP Specialty: Family Medicine Spoke to [place] the office will call you to schedule a follow up appointment.If you do not hear fromthe office in 7 days please call them at [phone] [place] [address] Go to Zulay Celis MD Wednesday Specialty: Orthopedic Surgery 1:15pm Orthopedics will make a referral for outpatient physical therapy therapy [address] [place] [address] [address] [facility] [phone] documented in this encounter Discharge Instructions * Discharge Instructions* Cynthia Bentley DO - 10/19/2024 7:41 AM EST Code Status: Full Code - Default Diet: Regular diet with thin liquids Weight Bearing Precautions: Weight bearing as tolerated to right lower extremity with knee immobilizer in place. Right knee immobilizer/brace at all times aside from removal for skin checks. Wound Care Instructions: Leave surgical dressing in place and follow up with Orthopedics for wound evaluation. Patient/PCP Follow Up Instructions: Follow-up with orthopedics for further management of right quadriceps tendon rupture s/p surgical repair. Continue Lovenox 40 mg daily for DVT prophylaxis x 6 weeks postop as per orthopedic recommendations. * Attachments The following attachments cannot be sent through Care Everywhere. * Enoxaparin Injectable Solution (ENOXAPARIN - INJECTION) (Iranian) * Enoxaparin (Lovenox) (Iranian) documented in this encounter Medications at Time of Discharge acetaminophen (TYLENOL) 325 mg tablet Take 2 tablets (650 mg total) by mouth every 6 (six) hours if needed for mild pain, headaches or fever - temperature GREATER than 38 C (100.4 F). allopurinoL (ZYLOPRIM) 100 mg tablet Take 1 tablet (100 mg total) by mouth 1 (one) time each day. 30 each 10/19/2024 5 atorvastatin (LIPITOR) 20 mg tablet Take 1 tablet (20 mg total) by mouth at bedtime. 30 each 10/19/2024 5 celecoxib (CeleBREX) 200 mg capsule Take 1 capsule (200 mg total) by mouth 2 (two) times a day. 60 each 10/19/2024 5 docusate sodium (COLACE) 100 mg capsule Take 1 capsule (100 mg total) by mouth 2 (two) times a day. 60 each 10/19/2024 5 enoxaparin (LOVENOX) 40 mg/0.4 mL syringeIndicatio ns:DVTP Inject 0.4 mL (40 mg total) under the skin 1 (one) time each day. 30 each 10/19/2024 5 hydroCHLOROthiaz cindy 12.5 mg tablet Take 1 tablet (12.5 mg total) by mouth 1 (one) time each day. 30 each 10/19/2024 5 multivitamin tablet Take 1 tablet by mouth 1 (one) time each day. 30 each 10/19/2024 5 documented as of this encounter Ordered Prescriptions Prescription Sig Dispense Quantity Refills Last Filled Start Date End Date enoxaparin (LOVENOX) 40 mg/0.4 mL syringeIndications :DVTP Inject 0.4 mL (40 mg total) under the skin 1 (one) time each day. 30 each 10/19/2024 5 multivitamin tablet Take 1 tablet by mouth 1 (one) time each day. 30 each 10/19/2024 5 hydroCHLOROthiazid e 12.5 mg tablet Take 1 tablet (12.5 mg total) by mouth 1 (one) time each day. 30 each 10/19/2024 docusate sodium (COLACE) 100 mg capsule Take 1 capsule (100 mg total) by mouth 2 (two) times a day. 60 each 10/19/2024 5 celecoxib (CeleBREX) 200 mg capsule Take 1 capsule (200 mg total) by mouth 2 (two) times a day. 60 each 10/19/2024 5 atorvastatin (LIPITOR) 20 mg tablet Take 1 tablet (20 mg total) by mouth at bedtime. 30 each 10/19/2024 allopurinoL (ZYLOPRIM) 100 mg tablet Take 1 tablet (100 mg total) by mouth 1 (one) time each day. 30 each 10/19/2024 5 documented in this encounter Discharge Disposition Disposition Code Departure Means Destination Comment s Home or Self Care documented in this encounter Progress Notes * Kamla Curiel RN - 10/19/2024 9:16 AM EST Goals: Clinical Goals for the Shift: Will ring call castorena appropriately and wait for staff to assist. Identify possible barriers to meeting goals/advancing plan of care: new use of crutches Stability of the patient: Moderately Stable - Low risk of patient condition declining or worsening End of Shift Summary: pt A&O,pleasant and cooperative. Appetite good. Denies pain. Ambulating with crutches appropriately. Cont. Of b/b. Pt aware of restriction to right lg. Pt was also able to administer lovenox to himself and he states he feels very comfortable giving it to himself at home. * Khadijah Rashid RN - 10/19/2024 5:46 AM EST Pt mod I with crutches, states voided in BR x1. Denies pain. RLE tuan and hinged brace on. Call lan lee. * Cynthia Bentley DO - 10/18/2024 6:58 PM EST Images from the original note were not included. PHYSICAL MEDICINE AND REHABILITATION Individualized Overall Plan of Care Patient Name: Jorge Guardado Date of : 1955 Sex: Male Payor Info: Payor: MEDICARE / Plan: MEDICARE PART A & B / Product Type: Medicare / Admit Date/Time: 10/16/2024 4:33 PM Etiologic Diagnosis: Right quadricept tendon rupture Rehab Impairment Group Code: 08.9 other orthopedic Expected LOS/Duration of Therapy: 3-5 days Expected Discharge Destination: Home with home health services Medical Prognosis: Excellent Medical Issues Actively Being Managed: Right quadricept tendon rupture s/p surgical intervention, pain management, HTN, HLD, gout Rehab Plan: Minimum of 180 minutes of therapy 5 out of 7 days per week as follows: 90 minutes of PT daily for 5 days. 90 minutes of OT daily for 5 days. Anticipated Functional Outcomes/Rehab Goals: Goals are for the patient to achieve the highest level of function and independence to allow the patient to return home. The patient and the family will be provided education on the patient's condition, the patient's current barriers, and the goals to overcome or to compensate for barriers. * Raquel Mcintyre RN - 10/18/2024 2:44 PM EST Discharge note: CM Met with patient with patient at bedside to discuss discharge plan.Patient to be discharged homeno services tomorrow 10/19 his brother will provide transportation.Patient will be going home with Lovenox RN to do teaching prior to discharge.Patient is in agreement with discharge date and plan had no further questions or concerns. * Raquel Mcintyre RN - 10/18/2024 2:25 PM EST Team meeting: CM Met with patient with patient at bedside to discuss recommendations from team meeting.DC plan for 3/6 home with no services. Patient is participating with PT OT.Patient is WBAT to L leg wears brace.He is independent with allself care ambulates 100 feet independently with crutches. Call placed to [facility] regarding Lovenox inj.Spoke to Ryan HICKEY patient is to cont Lovenox Inj for [address] Bentley is aware RN to do Lovenox teaching prior to dc. Patient in agreement with recommendations dc date and plan had no further questions or concerns. * Cynthia Bentley DO - 10/18/2024 11:07 AM EST Images from the original note were not included. [facility] Daily Progress Note Patient name: Jorge Guardado : 1955 SUBJECTIVE: Patient seen and examined at bedside today. No acute events overnight. Denies headaches, dizziness,shortness of breath, chest pain, nausea, constipation. Reports that pain is controlled. TEAM CONFERENCE: I was present and participated in team meeting today. I agree with team conferenceplan as documented in alternate note today. Please refer to team conference note for further details. OBJECTIVE: Vitals: 10/18/24 0518 10/18/24 0520 10/18/24 0707 10/18/24 0945 BP: 127/63 134/69 (!) 142/62 BP Location: Right arm Patient Position: Lying Pulse: 51 56 51 58 Resp: 16 Temp: 36.5 ??C (97.7 ??F) TempSrc: Oral SpO2: 100% 97% Weight: Physical Examination: General: Alert, in no acute cardiopulmonary distress. Mental Status: Oriented to person, place and time. Normal affect. Head: Normocephalic. Eyes: Pupils are equal, round and reactive to light. Extraocular muscles intact. Ear, Nose and Throat: Oropharynx clear, mucous membranes moist. Ears and nose without masses, lesions or deformities. Neck: Supple, Trachea midline. Respiratory: Clear to auscultation and percussion. No wheezing, rales or rhonchi. Cardiovascular: Heart sounds normal. No thrills. Regular rate and rhythm, no murmurs, rubs or gallops. Gastrointestinal: Abdomen soft, non-tender, non-distended. Normal bowel sounds. Genitourinary: No costovertebral angle tenderness. Neurologic: Cranial nerves II-XII intact. No focal neurological deficits. Deep tendon reflexes +2 bilaterally. Negative Hoffmans sign bilaterally. Flexor plantar response bilaterally. Negative clonusbilaterally. Moves all extremities spontaneously. Sensation intact bilaterally. Skin: No rashes or lesions. No petechiae or purpura. No edema. + Right knee dressing C/D/I able to plantar flex and dorsi flex Musculoskeletal: No cyanosis or clubbing. No gross deformities. Normal range of motion. Strength 5/5 to b/l UE and LLE. Strength difficult to access to RLE due to pain. + Hinge brace in locked extension to RLE CURRENT INPATIENT MEDICATIONS: Current Facility-Administered Medications: acetaminophen (TYLENOL) tablet 650 mg, 650 mg, oral, q6h PRN, Moshe Desai, PA, 650 mg at 10/17/242047 allopurinoL (ZYLOPRIM) tablet 100 mg, 100 mg, oral, Daily, Susgabrielata Lloyd, PA, 100 mg at 10/18/24917 atorvastatin (LIPITOR) tablet 20 mg, 20 mg, oral, Nightly, Susanita Lloyd, PA, 20 mg at 10/17/242047 bisacodyL (DULCOLAX) suppository 10 mg, 10 mg, rectal, Daily PRN, Moshe Desai PA celecoxib (CeleBREX) capsule 200 mg, 200 mg, oral, BID, Susanita Lloyd, PA, 200 mg at 10/18/24917 docusate sodium (COLACE) capsule 100 mg, 100 mg, oral, BID, Susselena Desai, PA, 100 mg at enoxaparin (LOVENOX) injection 40 mg, 40 mg, subcutaneous, Daily, RUPERTO Coates, 40 mg at 10/18/24 09 hydroCHLOROthiazide (HYDRODIURIL) tablet 12.5 mg, 12.5 mg, oral, Daily, RUPERTO Coates, 12.5 mg at 10/18/24 09 multivitamin tablet 1 tablet, 1 tablet, oral, Daily, RUPERTO Coates, 1 tablet at 10/18/24917 oxyCODONE (ROXICODONE) immediate release tablet 5 mg, 5 mg, oral, q4h PRN, RUPERTO Coates LABS: Lab Results Component Value Date WBC 9.8 10/17/2024 RBC 3.90 (L) 10/17/2024 HGB 13.0 (L) 10/17/2024 HCT 37.4 (L) 10/17/2024 MCV 96.9 10/17/2024 MCHC 34.8 10/17/2024 RDW 12.9 10/17/2024 PLT 228 10/17/2024 MPV 10.8 10/17/2024 NRBC 0.0 10/17/2024 DIFF Lab Results Component Value Date LYMPHOPCT 18.1 10/17/2024 NEUTROABS 6.31 10/17/2024 LYMPHSABS 1.78 10/17/2024 MONOABS 0.87 10/17/2024 EOSABS 0.69 (H) 10/17/2024 BASOSABS 0.12 10/17/2024 IMMGRANABS 0.04 (H) 10/17/2024 RETIC No results found for: RETIC , RETICCTPCT Lab Results Component Value Date NA 138 10/17/2024 K 4.2 10/17/2024 CL 105 10/17/2024 CO2 27 10/17/2024 GLUCOSE 106 (H) 10/17/2024 BUN 19 10/17/2024 CREATININE 1.08 10/17/2024 CALCIUM 9.1 10/17/2024 PROT 6.3 10/17/2024 ALBUMIN 2.9 (L) 10/17/2024 BILITOT 0.9 10/17/2024 AST 17 10/17/2024 ALT 30 10/17/2024 MG 2.1 10/05/2024 ALKPHOS 76 10/17/2024 EGFR 73 10/17/2024 IMPRESSION & PLAN: #Impaired mobility and self care -Secondary to R quadricept tendon rupture -Continue PT/OT & nursing care #Right quadricept tendon rupture #S/p re-rupture -S/p surgical repair 09/29 & 10/13 Dr Celis at [facility] [place]R hinge brace on at all times, do not bend, locked in extension -WBAT to RLE with knee immobilizer in place -continue therapies -f/u Orthopedics after discharge #Pain control -Tylenol 650 mg Q6H PRN -Celebrex 200 mg BID -Oxycodone 5 mg Q4H PRN #Hypertension -Hydrochlorothiazide 12.5 mg daily #Hyperlipidemia -Atorvastatin 20 mg nightly #Hx of gout -Allopurinol 100 mg daily #Bowel management -Colace 100mg BID #DVT ppx: Lovenox 40 mg daily --> CM will reach out to Dr Celis to determine if patient can transition to Aspirin on discharge given that he was using this previously * Jane Alvarado PT - 10/18/2024 9:30 AM EST [facility] Physical Therapy Discharge Evaluation Note 10/18/24 Patient: Jorge Guardado : 1955 Age: 69 y.o. Gender: male Primary Language: Iranian Diagnosis: Quadriceps tendon rupture, right, initial encounter HPI: see EMR Past Medical History: Diagnosis Date Gout HLD (hyperlipidemia) HTN (hypertension) History reviewed. No pertinent surgical history. Allergies: has No Known Allergies. Precautions: Safety Interventions: Call castorena within reach, ID band on RLE Weight Bearing Status: As Tolerated Orthopedic Precautions: (NO BENDING KNEE) Orthoses Applied: Knee Immobilizer (on AAT. Hinge brace locked in extension) SUBJECTIVE I'm ready to go home Home Living: Type of Home: House (plan is to d/c to brothers house. 1 level.) Lives With: (Brother and sister in law.) Home Adaptive Equipment: None Home Living Comments: (laundry in basement.) Home Layout: One level Home Access: Stairs to enter with rails Entrance Stairs-Rails: Rail on the left going up Entrance Stairs-Number of Steps: 2 Bathroom Shower/Tub: Walk-in shower Bathroom Toilet: Standard (with elevated toilet seat (with arm rests).) Bathroom Equipment: Shower chair with back Bathroom Accessibility: (accessible with crutches.) Pain: Pain Assessment: No/denies pain OBJECTIVE General Observation: Pt received in recliner, agreeable to PT. Cognition/Communication: Orientation Level: Oriented X4 Vitals: BP: (!) 142/62 Heart Rate: 58 SpO2: 97 % Skin: Defer to nursing documentation- tuan wrap on RLE, dry cracked skin on bilateral feet Sensation: Light Touch: No apparent deficits Proprioception: Proprioception: No apparent deficits Balance: Static Sitting Balance Static Sitting-Level of Assistance: Independent Dynamic Sitting Balance Dynamic Sitting-Level of Assistance: Independent Static Standing Balance Static Standing-Level of Assistance: Independent Dynamic Standing Balance Dynamic Standing-Level of Assistance: Supervision or touching assistance Strength: Strength RLE R Hip Flexion: 3-/5 R Ankle Dorsiflexion: 4+/5 R Ankle Plantar Flexion: 4+/5 Range of Motion: RLE NT- hinged brace locked in knee extension QUALITY INDICATORS SCORING: Bed Mobility Roll Left and Right Assistance [...] physical assistance Comment: crutches CARE Score - Sit to Stand: 6 Chair/Cof-gq-Ymuvi Transfer Assistance Needed: Independent Physical Assistance Level: No physical assistance Comment: crutches CARE Score - Chair/[id number]-Lvhrk Transfer: 6 Toilet Transfer Assistance Needed: Independent Comment: elevated seat and crutches CARE Score - Toilet Transfer: 6 Car Transfer Assistance Needed: Independent CARE Score - Car Transfer: 6 Ambulation Walk 10 Feet Assistance Needed: Independent [...] Walking 10 Feet on Uneven Surfaces: 6 Stairs 1 Step (Curb) Assistance Needed: Independent Physical [...] crutch CARE Score - 12 Steps: 6 Resilient Tile Installer Object Picking Up Object Assistance Needed: Independent Physical Assistance Level: No physical assistance Comment: shopping investigator CARE Score - Picking Up Object: 6 Wheelchair Uses a Wheelchair/Scooter? Uses a Wheelchair/Scooter?: No PT TREATMENT PROVIDED TODAY: Therapeutic Activity Therapeutic Activity Therapeutic Activity Time Entry: 90 Pt received in bed, agreeable to PT. Pt agreeable to ambulation outdoors. Assist to don boots. Pt ambulating in hallway mod I with crutches. Brought pt outside, ambulating outdoors with both crutchesand walker, pt preferring crutches and demonstrating appropriate safety and balance with them. Pt able to ambulate over grass mod I. Returned to rehab unit. Pt completing x12 stairs with 1 railing and crutch, mod I. Pt able to hold both crutches in one hand while negotiating stairs to improve independence. Pt participating in game of corn hole standing with 1 crutch, mod I, no LOB. 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 Pt ambulating back to room with crutches. Pt left in recliner, mod I in room. PT ASSESSMENT: Pt is mod I with all mobility using axillary crutches. Recommending pt follow up with outpatient PTonce cleared by orthopedics, in order to progress knee ROM and strengthening when appropriate. PT PLAN: Patient discharged from this level of care, therapist recommending outpatient PT once discharged from this level of care. Goals: Encounter Problems Encounter Problems (Active) There are no active problems. Encounter Problems (Resolved) Template: Physical Therapy Problem: PT Manager Area Goals Dates: Start: 10/17/24 Resolved: 10/18/24 Goal: Mod I transfers LRAD (Resolved) Dates: Start: 10/17/24 Expected End: 10/19/24 Resolved: 10/18/24 Outcomes Date/Time User Outcome 10/18/24 1207 Jane Alvarado PT Completed Goal: Mod I gait x150' LRAD (Resolved) Dates: Start: 10/17/24 Expected End: 10/19/24 Resolved: 10/18/24 Outcomes Date/Time User Outcome 10/18/24 1207 Jane Alvarado PT Completed Goal: Mod I x12 stairs 1 railing and crutch (Resolved) Dates: Start: 10/17/24 Expected End: 10/19/24 Resolved: 10/18/24 Outcomes Date/Time User Outcome 10/18/24 1207 Jane Alvarado PT Completed Education Documentation Precautions, taught by Jane Alvarado PT at 10/18/2024 12:08 PM. Learner: Patient Readiness: Acceptance Method: Explanation, Demonstration Response: Verbalizes Understanding, Demonstrated Understanding Comment: gait, uneven surfaces, stairs, standing balance Mobility Training, taught by Jane Alvarado PT at 10/18/2024 12:08 PM. Learner: Patient Readiness: Acceptance Method: Explanation, Demonstration Response: Verbalizes Understanding, Demonstrated Understanding Comment: gait, uneven surfaces, stairs, standing balance Education Comments No comments found. Session Start/Stop Time: 0930 1100 Therapy Minutes Physical Therapy PT Individual: 90 * Wilfrid Medina OT - 10/18/2024 7:00 AM EST [facility] Occupational Therapy Discharge Note 10/18/24 Patient: Jorge Guardado : 1955 Age: 69 y.o. Gender: male Diagnosis: Quadriceps tendon rupture, right, initial encounter Primary Rehab (Etiologic) Diagnosis: Patient Active Problem List Diagnosis Quadriceps tendon rupture, right, initial encounter PMH: Past Medical History: Diagnosis Date Gout HLD (hyperlipidemia) HTN (hypertension) PSH: History reviewed. No pertinent surgical history. Allergies: has No Known Allergies. Precautions: Precautions Safety Interventions: Call castorena within reach, ID band on RLE Weight Bearing Status: As Tolerated Orthopedic Precautions: (NO BENDING KNEE) Orthoses Applied: Knee Immobilizer (on AAT. Hinge brace locked in extension) Vitals: BP: 134/69 Heart Rate: 51 SpO2: 97 % Pain: Pain Assessment: No/denies pain Patient Subjective: I can keep going. Session Summary from 10/18/24 CAMS Discharge Is there evidence of an acute change in mental status from the patient's baseline?: No (10/18/24699 : Wilfrid Medina, OT) Inattention: Behavior not present (10/18/24699 : Wilfrid Medina OT) Disorganized thinking: Behavior not present (10/18/24699 : Wilfrid Medina OT) Altered level of consciousness: Behavior not present (10/18/24699 : Wilfrid Medina OT) BIMS Discharge 15 (10/18/24699 : Wilfrid Medina OT) Hearing, Speech, and Vision- Discharge Hearing, Speech, and Vision Ability to Hear: Adequate Ability to See in Adequate Light: Adequate Expression of Ideas and Wants: Without difficulty Understanding Verbal and Non-Verbal Content: Understands FUNCTIONAL STATUS ADL ASSIST Eating Assistance Needed: Independent Oral Hygiene Oral Hygiene Assistance Needed: Independent CARE Score - Oral Hygiene: 6 Toileting Toileting Hygiene Assistance Needed: Independent CARE Score - Toileting Hygiene: 6 Bathing Shower/Bathe Self Assistance Needed: Independent Physical Assistance Level: No physical assistance Comment: sponge CARE Score - Shower/Bathe Self: 6 UE Dressing Upper Body Dressing Assistance Needed: Independent CARE Score - Upper Body Dressin LE Dressing Lower Body Dressing Assistance Needed: Independent Physical Assistance Level: No physical assistance CARE Score - Lower Body Dressin Footwear Putting On/Taking Off Footwear Assistance Needed: Independent Physical Assistance Level: No physical assistance Comment: use of shopping investigator and sock aid CARE Score - Putting On/Taking Off Footwear: 6 Toilet Transfer Assistance Needed: Independent Tub/Shower Transfer N/a Equipment Provided: at d/c location pt has elevated toilet seat with arm rests, LH sponge, shopping investigator,and sock aid. ADL Comments: Pt is mod I with all ADLs including sponge bathing. Vision: Vision - Complex Assessment Ocular Range of Motion: Within Functional Limits Head Position: Upright, centered, looking straight ahead, not leaning any direction Perception: Perception Inattention/Neglect: Appears intact Initiation: Appears intact Motor Planning: Appears intact Proprioception: Proprioception Proprioception: No apparent deficits Sensation: Sensation Light Touch: No apparent deficits Sensation Comments: (pt reports no numbness or tingling) Hand Function: Hand Function Gross Grasp: Functional Coordination: Coordination Coordination: Functional Balance: Static sitting balance Static Sitting Balance Static Sitting-Level of Assistance: Independent Dynamic sitting balance Dynamic Sitting Balance Dynamic Sitting-Level of Assistance: Independent Static standing balance Static Standing Balance Static Standing-Level of Assistance: Independent Dynamic standing balance Dynamic Standing Balance Dynamic Standing-Level of Assistance: Independent UPPER EXTREMITY ASSESSMENTS RUE Assessment RUE Assessment: Within Functional Limits RUE Assessment Additional: ([employer] 5th digit, operated on approx 6 years ago.) LUE Assessment LUE Assessment: Within Functional Limits Procedures/Interventions: ADLs/IADLs Self Care/Home Management (ADLs) Time Entry: 30 Pt supine upon arrival, agreeable to participation. Vitals assessed, see above. Supine>sit EOB mod I. Pt doffed LB clothing mod I. pt donned underwear/pants with mod I. Pt doffed/donned socks mod I, using shopping investigator and sock aid to don/doff R sock. Pt with independent recall of how to use shopping investigator/sock aid. Functional mobility from room>ADL kitchen with crutches mod I. In kitchen pt tasked with making cup of coffee with use of Keurig. Pt gathered all items and made coffee with mod I with crutches. Pt reports that he is able to reach table from countertop, thus pt not required to transport food. Pt educated on sliding items from fridge>microwave to eliminate need to carry. Once coffee made, assist to transport cup to dinning room. Therapeutic Activity Therapeutic Activity Time Entry: 30 Pt engaged in ther act task to target functional mobility endurance and crutch management. Functional amb around unit with crutches, while engaged in task of locating various items, and transported in handled bag. Educated on bag as an option for transporting various light weight items at home. Linda functional amb with safe crutch management. Pt able to sequence crutch placement independently. Pt located all socks with cues X2 for locating, pt reporting that he was not scanning in particular areas due to other items placed nearby. Once back in room pt seated in recliner with breakfast, education provided on mod I in room order. Therapeutic Exercise Therapeutic Exercise Time Entry: 30 Pt provided with printed UB HEP to increase UB strength and overall endurance for ADL and functional mobility with crutches. With blue level 4 theraband pt performed 10 reps X3 of shoulder horizontalabduction, shoulder flexion, shoulder abduction, elbow flexion, and elbow extension. Cues X1 for achievement of target movement, with good carryover. OT Plan OT Discharge Recommendations: Home independent Goals: Encounter Problems Encounter Problems (Active) There are no active problems. Encounter Problems (Resolved) Template: Occupational Therapy Problem: OT Manager Area Goals Dates: Start: 10/17/24 Resolved: 10/18/24 Goal: Pt will perform LB dressing with mod I, with use of LH ADAPTIVE EQUIPTMENT prn. (Resolved) Dates: Start: 10/17/24 Expected End: 10/19/24 Resolved: 10/18/24 Outcomes Date/Time User Outcome 10/18/24 1447 Wilfrid Medina OT Completed Goal: Pt will perform toileting with mod I with LRAD and DME prn. (Resolved) Dates: Start: 10/17/24 Expected End: 10/19/24 Resolved: 10/18/24 Outcomes Date/Time User Outcome 10/18/24 144Soham Medina OT Completed Goal: Pt will perform sponge bathing with use of LH ADAPTIVE EQUIPTMENT prn, with mod I. (Resolved) Dates: Start: 10/17/24 Expected End: 10/19/24 Resolved: 10/18/24 Outcomes Date/Time User Outcome 10/18/24 144Soham Medina OT Completed Goal: Pt will perform light meal/beverage prep at LRAD with mod I. (Resolved) Dates: Start: 10/17/24 Expected End: 10/19/24 Resolved: 10/18/24 Outcomes Date/Time User Outcome 10/18/24 144Soham Medina OT Completed Goal: Pt will perform grooming in stand at sink mod I. (Resolved) Dates: Start: 10/17/24 Expected End: 10/19/24 Resolved: 10/18/24 Outcomes Date/Time User Outcome 10/18/24 1447 Wilfrid Medina OT Completed OT Assessment OT Assessment OT Assessment Results: Decreased ADL status, Decreased endurance, Decreased IADLs Prognosis: Excellent Evaluation/Treatment Tolerance: Patient tolerated treatment well pt mod I with ADLs, brother to assist with IADLs such as grocery shopping and heavy house work. Education Documentation ADL Training, taught by Wilfrid Medina OT at 10/18/2024 7:48 AM. Learner: Patient Readiness: Acceptance Method: Explanation, Demonstration Response: Verbalizes Understanding, Demonstrated Understanding Body Mechanics, taught by Wilfrid Medina OT at 10/18/2024 7:48 AM. Learner: Patient Readiness: Acceptance Method: Explanation, Demonstration Response: Verbalizes Understanding, Demonstrated Understanding Discharge Planning, taught by Wilfrid Medina OT at 10/18/2024 7:48 AM. Learner: Patient Readiness: Acceptance Method: Explanation, Demonstration Response: Verbalizes Understanding, Demonstrated Understanding Education Comments No comments found. Start/Stop Time OT Time Calculation OT Start Time: 0700 OT Stop Time: 0830 OT Time Calculation (min): 90 min Therapy Minutes: Occupational Therapy OT Individual: 90 * Khadijah Rashid RN - 10/18/2024 6:26 AM EST Pt requested assistance to BR while RN in room. CG with crutches to BR. Pt stood to void. Pt brushed teeth independently. Denies pain. Bed alarm on. Call castorena within reach. * Raquel Mcintyre RN - 10/17/2024 1:42 PM EST CM Met with patient at bedside for initial assessment introduced self explained role in plan of care and discharge planning discussed IRF level of care,Team meeting and [place]. Verified demographics,Ins,PCP not a .Patient lives alone with his dog and cat in 1 level home 3 steps to enter from the back porch.Patient was independent with his ADLs and IADLs ambulates with no device, drives,manages his own meds. Patient is and retired receives SS and pension.Patient has 2 sons Angel (HCP on file)who is local lives in [place] and [facility] in [place].Patient also has a brother Adrian who lives [...] discharge if needed.Brother to provide transport on discharge.CM to follow for discharge planning needs. * Jane Alvarado PT - 10/17/2024 1:00 PM EST [facility] Physical Therapy Evaluation Note 10/17/24 Patient: Jorge Guardado : 1955 Age: 69 y.o. Gender: male Primary Language: Iranian Diagnosis: Quadriceps tendon rupture, right, initial encounter HPI: see EMR Past Medical History: Diagnosis Date Gout HLD (hyperlipidemia) HTN (hypertension) History reviewed. No pertinent surgical history. Allergies: has No Known Allergies. Precautions: Safety Interventions: Call castorena within reach, ID band on RLE Weight Bearing Status: As Tolerated Orthopedic Precautions: (NO BENDING KNEE) Orthoses Applied: Knee Immobilizer (on AAT. Hinge brace locked in extension) SUBJECTIVE Prior Level of Function: Level of [place]: Independent with mobility and functional transfers Ambulation Status: Community ambulator, Household ambulator Indoor Mobility Assistance: Independent Stairs Assistance : Independent Prior Device Use: None of the given options Do you drive?: Yes Vocational: Retired (worked for [employer]) Leisure: (guidry, fish, and walk dog.) Which is your dominant hand?: Right Understanding of Current Condition: Pt understands Home Living: Type of Home: House (plan is to d/c to brothers house. 1 level.) Lives With: (Brother and sister in law.) Home Adaptive Equipment: None Home Living Comments: (laundry in basement.) Home Layout: One level Home Access: Stairs to enter with rails Entrance Stairs-Rails: Rail on the left going up Entrance Stairs-Number of Steps: 2 Bathroom Shower/Tub: Walk-in shower Bathroom Toilet: Standard (with elevated toilet seat (with arm rests).) Bathroom Equipment: Shower chair with back Bathroom Accessibility: (accessible with crutches.) Pain: Pain Assessment: No/denies pain OBJECTIVE General Observation: Pt sitting in recliner, agreeable to PT evaluation. Cognition/Communication: Orientation Level: Oriented X4 Vitals: BP: 115/67 Heart Rate: 55 SpO2: 95 % Skin: Defer to nursing documentation, pt with previous L great toe amputation Sensation: Light Touch: No apparent deficits Balance: Static Sitting Balance Static Sitting-Level of Assistance: Independent Dynamic Sitting Balance Dynamic Sitting-Level of Assistance: Independent Static Standing Balance Static Standing-Level of Assistance: Independent Dynamic Standing Balance Dynamic Standing-Level of Assistance: Supervision or touching assistance Strength: Strength RLE R Hip Flexion: 3-/5 R Ankle Dorsiflexion: 4+/5 R Ankle Plantar Flexion: 4+/5 LLE WFL Range of Motion: RLE hinge brace locked in 0 degrees knee flexion- RLE NT QUALITY INDICATORS SCORING: Bed Mobility Roll Left and Right Assistance Needed: Independent CARE Score - Roll Left and Right: 6 Sit to Lying Assistance Needed: Independent CARE Score - Sit to Lyin Lying to Sitting on Side of Bed Assistance Needed: Independent CARE Score - Lying to Sitting on Side of Bed: 6 Transfers Sit to Stand Assistance Needed: Supervision Physical Assistance Level: No physical assistance Comment: crutches CARE Score - Sit to Stand: 4 Chair/[id number]-[id number] Transfer Assistance Needed: Supervision Physical Assistance Level: No physical assistance Comment: crutches CARE Score - Chair/[id number]-[id number] Transfer: 4 Toilet Transfer Assistance Needed: Supervision Comment: with elevated seat and crutches CARE Score - Toilet Transfer: 4 Car Transfer Reason if not Attempted: Environmental limitations CARE Score - Car Transfer: 10 Ambulation Walk 10 Feet Assistance Needed: Supervision Comment: crutches CARE Score - Walk 10 Feet: 4 Walk 50 Feet with Two Turns Assistance Needed: Supervision Comment: crutches CARE Score - Walk 50 Feet with Two Turns: 4 Walk 150 Feet Assistance Needed: Supervision Comment: crutches CARE Score - Walk 150 Feet: 4 Walking 10 Feet on Uneven Surfaces Assistance Needed: Supervision Comment: crutches CARE Score - Walking 10 Feet on Uneven Surfaces: 4 Stairs 1 Step (Curb) Assistance Needed: Supervision Physical Assistance Level: No physical assistance Comment: 1 railing and crutch CARE Score - 1 Step (Curb): 4 4 Steps Assistance Needed: Supervision Physical Assistance Level: No physical assistance Comment: 1 railing and crutch CARE Score - 4 Steps: 4 12 Steps Assistance Needed: Supervision Physical Assistance Level: No physical assistance Comment: 1 railing and crutch CARE Score - 12 Steps: 4 Resilient Tile Installer Object Picking Up Object Assistance Needed: Supervision Physical Assistance Level: No physical assistance Comment: shopping investigator CARE Score - Picking Up Object: 4 Wheelchair Uses a Wheelchair/Scooter? Uses a Wheelchair/Scooter?: No (pt walking room to gym, does not have wheelchair in room) Narrative: Pt received in recliner, agreeable to PT. Transfer recliner to bed with crutches supervision. Pt completing sit <> supine mod I. Pt declining to use wheelchair, ambulating to gym with crutches supervision x155'. Pt completing x12 stairs supervision, 1 railing and axillary crutch, step to pattern. Pt using crutches to walk over uneven surface, supervision. 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 At end of session, pt remaining up in recliner. PT TREATMENT PROVIDED TODAY: Therapeutic Exercise Therapeutic Exercise Therapeutic Exercise Time Entry: 30 Pt completing standing exercises at eli-bar, 3x10 RLE hip abduction and hip extension. Gait in hallway with crutches x200'. Pt ambulating onto porch, negotiating doorway threshold and ambulating on carpeting. Pt ambulating back to room. Completed toileting supervision, returning to recliner at endof session. PT ASSESSMENT: PT Assessment Results: Impaired balance, Decreased strength, Orthopedic restrictions Prognosis: Excellent Evaluation/Treatment Tolerance: Patient tolerated treatment well Patient to benefit from this level of care to address above impairments to assist patient in returning to prior level of function. Physical therapy plan of care to include gait training, neuromuscular re-education, therapeutic activities, and therapeutic exercise. PT POC for 3 days. PT PLAN: Treatment/Interventions: Functional transfer training, LE strengthening/ROM, Gait training, Balancetraining PT Plan: Skilled PT PT Frequency: 5 days per week PT Duration of Sessions: 90 min per day PT Treatments per day: 1 time per day Goals: Encounter Problems Encounter Problems (Active) Template: Physical Therapy Problem: PT Manager Area Goals Dates: Start: 10/17/24 Goal: Mod I transfers LRAD Dates: Start: 10/17/24 Expected End: 10/19/24 Goal: Mod I gait x150' LRAD Dates: Start: 10/17/24 Expected End: 10/19/24 Goal: Mod I x12 stairs 1 railing and crutch Dates: Start: 10/17/24 Expected End: 10/19/24 Encounter Problems (Resolved) There are no resolved problems. Education Documentation Precautions, taught by Jane Alvarado PT at 10/17/2024 4:29 PM. Learner: Patient Readiness: Acceptance Method: Explanation, Demonstration Response: Verbalizes Understanding, Demonstrated Understanding Comment: bed mobility, transfers, gait with crutches, stairs, standing balance Mobility Training, taught by Jane Alvarado PT at 10/17/2024 4:29 PM. Learner: Patient Readiness: Acceptance Method: Explanation, Demonstration Response: Verbalizes Understanding, Demonstrated Understanding Comment: bed mobility, transfers, gait with crutches, stairs, standing balance Education Comments No comments found. Session Start/Stop Time: 1300 1430 Therapy Minutes Physical Therapy PT Individual: 90 * Wilfrid Medina, OT - 10/17/2024 10:00 AM EST [facility] Occupational Therapy Evaluation Note 10/17/24 Patient: Jorge Guardado : 1955 Age: 69 y.o. Gender: male Primary Language: Iranian Diagnosis: Quadriceps tendon rupture, right, initial encounter Primary Rehab (Etiologic) Diagnosis: Patient Active Problem List Diagnosis Quadriceps tendon rupture, right, initial encounter PMH: Past Medical History: Diagnosis Date Gout HLD (hyperlipidemia) HTN (hypertension) PSH: History reviewed. No pertinent surgical history. Allergies: has No Known Allergies. Precautions: Precautions Safety Interventions: Call castorena within reach, ID band on RLE Weight Bearing Status: As Tolerated Orthopedic Precautions: (NO BENDING KNEE) Orthoses Applied: Knee Immobilizer (on AAT. Hinge brace locked in extension) NURSING RECOMMENDATIONS SUBJECTIVE Patient Subjective: I am moving well Home Living: Type of Home: House (plan is to d/c to brothers house. 1 level.) Lives With: (Brother and sister in law.) Home Adaptive Equipment: None Home Living Comments: (laundry in basement.) Home Layout: One level Home Access: Stairs to enter with rails Entrance Stairs-Rails: Rail on the left going up Entrance Stairs-Number of Steps: 2 Bathroom Shower/Tub: Walk-in shower Bathroom Toilet: Standard (with elevated toilet seat (with arm rests).) Bathroom Equipment: Shower chair with back Bathroom Accessibility: (accessible with crutches.) Prior Level of Function: Level of [place]: Independent with mobility and functional transfers Ambulation Status: Household ambulator Indoor Mobility Assistance: Independent Stairs Assistance : Independent Prior Device Use: No prior device use Do you drive?: Yes Vocational: Retired (worked for [employer]) Leisure: (guidry, fish, and walk dog.) Which is your dominant hand?: Right ADL/IADL History: ADL Assistance (Self Care): Independent Homemaking Assistance (Functional Cognition): Independent Occupation: Retired Social History: Social History Tobacco Use Smoking status: Never Smokeless tobacco: Never Substance Use Topics Alcohol use: Yes Alcohol/week: 2.0 standard drinks of alcohol Types: 2 Cans of beer per week Comment: Socially Drug use: Never Understanding of Current Condition: understands. OBJECTIVE General Observation: pleasant and agreeable to all aspects of eval. Cognition/Communication: Cognition Overall Cognitive Status: Within Functional Limits Following Commands: Follows all commands and directions without difficulty Safety Judgment: Good awareness of safety precautions Vitals: BP: 136/67 Heart Rate: 55 SpO2: 97 % Pain: Pain Assessment: No/denies pain Skin: R LE tuan wrapped and KI in place. Please refer to RN skin assessment for further details. FUNCTIONAL ASSESSMENTS ADL ASSIST Eating Assistance Needed: Independent Oral Hygiene Oral Hygiene Assistance Needed: Set-up / clean-up (standing) CARE Score - Oral Hygiene: 5 Toileting Toileting Hygiene Assistance Needed: Supervision CARE Score - Toileting Hygiene: 4 Bathing Shower/Bathe Self Assistance Needed: Physical assistance Physical Assistance Level: 25% or less CARE Score - Shower/Bathe Self: 3 UE Dressing Upper Body Dressing Assistance Needed: Set-up / clean-up CARE Score - Upper Body Dressin LE Dressing Lower Body Dressing Assistance Needed: Physical assistance Physical Assistance Level: 25% or less CARE Score - Lower Body Dressin Footwear Putting On/Taking Off Footwear Assistance Needed: Physical assistance Physical Assistance Level: 26%-50% Comment: for R foot CARE Score - Putting On/Taking Off Footwear: 3 Toilet Transfer Assistance Needed: Supervision Tub/Shower Transfer To be assessed. Equipment Provided: pt would benefit from use of ADAPTIVE EQUIPTMENT for LB self care to maximize independence Vision: Vision - Complex Assessment Ocular Range of Motion: Within Functional Limits Head Position: Upright, centered, looking straight ahead, not leaning any direction Perception: Perception Inattention/Neglect: Appears intact Initiation: Appears intact Motor Planning: Appears intact Proprioception: Proprioception Proprioception: No apparent deficits Sensation: Sensation Light Touch: No apparent deficits Sensation Comments: (pt reports no numbness or tingling) Hand Function: Hand Function Gross Grasp: Functional Coordination: Coordination Coordination: Functional Balance: Static sitting balance Static Sitting Balance Static Sitting-Level of Assistance: Independent Dynamic sitting balance Dynamic Sitting Balance Dynamic Sitting-Level of Assistance: Independent Static standing balance Static Standing Balance Static Standing-Level of Assistance: Supervision or touching assistance Dynamic standing balance Dynamic Standing Balance Dynamic Standing-Level of Assistance: Supervision or touching assistance UPPER EXTREMITY ASSESSMENTS RUE Assessment RUE Assessment: Within Functional Limits RUE Assessment Additional: ([employer] 5th digit, operated on approx 6 years ago.) RUE Strength R Shoulder Flexion: 4+/5 R Shoulder ABduction: 4+/5 R Elbow Flexion: 5/5 R Elbow Extension: 5/5 R Wrist Flexion: 5/5 R Wrist Extension: 5/5 LUE Assessment LUE Assessment: Within Functional Limits LUE Strength L Shoulder Flexion: 4+/5 L Shoulder ABduction: 4+/5 L Elbow Flexion: 5/5 L Elbow Extension: 5/5 L Wrist Flexion: 5/5 L Wrist Extension: 5/5 STANDARDIZED TESTS Right Hand Strength - Firearms Inspector (lbs) Handle Setting 2: 82 lbs Left Hand Strength - Firearms Inspector (lbs) Handle Setting 2: 94 lbs Quality Indicators Scoring CAM Scoring Admit: Is there evidence of an acute change in mental status from the patient's baseline?: No (10/17/24 1000 : Wilfrid Medina OT) Inattention: Behavior not present (10/17/24 1000 : Wilfrid Medina OT) Disorganized thinking: Behavior not present (10/17/24 1000 : Wilfrid Medina OT) Altered level of consciousness: Behavior not present (10/17/24 1000 : Wilfrid Medina OT) BIMS: 15 (10/17/24 1000 : Wilfrid Medina OT) Hearing, Speech, and Vision: Hearing, Speech, and Vision Ability to Hear: Adequate Ability to See in Adequate Light: Adequate Expression of Ideas and Wants: Without difficulty Understanding Verbal and Non-Verbal Content: Understands Health Literacy: Health Literacy How often do you need to have someone help you when you read instructions, pamphlets, or other written material from your doctor or pharmacy?: Never Procedures/Interventions: ADLs/IADLs Self Care/Home Management (ADLs) Time Entry: 30 Pt seated in recliner upon arrival, requesting to use bathroom. Functional amb into bathroom with crutches S. In stand pt propped crutches on wall and voided while in stand with S. Hand hygiene performed in stand S. Seated on EOB pt provided with pants and required min assist to thread R foot, pt able to thread L LE, and hiked over hips in stand with S. Pt performed functional amb from room><gym with S with use of crutches. While sitting in chair pt with good carryover of kicking R leg out prior to sit. Pt performed eval measures seated in chair. Functional amb with crutched around rehab unit with SBA, pt took one seated rest break on bench. During rest break dicussed kitchen set up, pt reports he is able to reach table from counter top, thuseliminating need to transport food while using crutches. Pt agreeable to light yaw/meal prep tomorrow. Pt reporting that brother is able to assist with all meals. Amb back to room S. Pt seated in recl iner with chair alarm placed, call castorena in reach, and all needs met. PCT in to check blood sugar, pt confirming that he is not diabetic, RN aware, reports plan for order to be canceled. All needs metat end of session. OT Assessment: OT Assessment OT Assessment Results: Decreased ADL status, Decreased endurance, Decreased IADLs Prognosis: Excellent Evaluation/Treatment Tolerance: Patient tolerated treatment well. Plan to introduce LH ADAPTIVE EQUIPTMENT tomorrow in order to maximize [place] with all self care tasks. OT Plan: Plan Treatment Interventions: ADL retraining OT Plan: Skilled OT OT Frequency : 5-7 days per week OT Duration of Sessions: 90 min per day OT Treatments per day: 1 time per day OT - Evaluation Status: Complete OT Discharge Recommendations: Home independent LTG written for 3 days. Goals: Encounter Problems Encounter Problems (Active) Template: Occupational Therapy Problem: OT Manager Area Goals Dates: Start: 10/17/24 Goal: Pt will perform LB dressing with mod I, with use of LH ADAPTIVE EQUIPTMENT prn. Dates: Start: 10/17/24 Expected End: 10/19/24 Goal: Pt will perform toileting with mod I with LRAD and DME prn. Dates: Start: 10/17/24 Expected End: 10/19/24 Goal: Pt will perform sponge bathing with use of LH ADAPTIVE EQUIPTMENT prn, with mod I. Dates: Start: 10/17/24 Expected End: 10/19/24 Goal: Pt will perform light meal/beverage prep at LRAD with mod I. Dates: Start: 10/17/24 Expected End: 10/19/24 Goal: Pt will perform grooming in stand at sink mod I. Dates: Start: 10/17/24 Expected End: 10/19/24 Encounter Problems (Resolved) There are no resolved problems. Education Documentation ADL Training, taught by Wilfrid Medina OT at 10/17/2024 12:22 PM. Learner: Patient Readiness: Acceptance Method: Explanation, Demonstration Response: Verbalizes Understanding, Demonstrated Understanding Precautions, taught by Wilfrid Medina OT at 10/17/2024 12:22 PM. Learner: Patient Readiness: Acceptance Method: Explanation, Demonstration Response: Verbalizes Understanding, Demonstrated Understanding Body Mechanics, taught by Wilfrid Medina OT at 10/17/2024 12:22 PM. Learner: Patient Readiness: Acceptance Method: Explanation, Demonstration Response: Verbalizes Understanding, Demonstrated Understanding Home Safety, taught by Wilfrid Medina OT at 10/17/2024 12:22 PM. Learner: Patient Readiness: Acceptance Method: Explanation, Demonstration Response: Verbalizes Understanding, Demonstrated Understanding After Discharge, taught by Wilfrid Medina OT at 10/17/2024 12:22 PM. Learner: Patient Readiness: Acceptance Method: Explanation, Demonstration Response: Verbalizes Understanding, Demonstrated Understanding Discharge Planning, taught by Wilfrid Medina OT at 10/17/2024 12:22 PM. Learner: Patient Readiness: Acceptance Method: Explanation, Demonstration Response: Verbalizes Understanding, Demonstrated Understanding Education Comments No comments found. Start/Stop Time: OT Time Calculation OT Start Time: 1000 OT Stop Time: 1130 OT Time Calculation (min): 90 min Therapy Minutes: Occupational Therapy OT Individual: 90 * Khadijah Rashid RN - 10/17/2024 2:56 AM EST Problem: Cognitive: Kuo Addy Fall Risk Goal: Last Known Fall Outcome: Progressing Goal: Mobility requiring assistance of person or device Outcome: Progressing Goal: Dizziness Outcome: Progressing Goal: Medications Outcome: Progressing Goal: Mental Status/LOC/Awareness Outcome: Progressing Goal: Toileting Needs Outcome: Progressing Goal: Volume and Electrolyte Status Outcome: Progressing Goal: Communication/Sensory Outcome: Progressing Goal: Behavior Outcome: Progressing Goals: Clinical Goals for the Shift: Will ring call castorena appropriately and wait for staff to assist. Identify possible barriers to meeting goals/advancing plan of care: new admit 10/16/2024 Stability of the patient: Moderately Unstable - Medium risk of patient condition declining or worsening End of Shift Summary: Pt used call castorena and requested assistance to BR. RLE hinged brace on , locked in extension. Pt used crutches and ambulated to toilet. Pt stood to void. Denies pain. Bed alarm on. Call castorena within reach. documented in this encounter H&P Notes * RUPERTO Coates - 10/17/2024 11:57 AM EST Images from the original note were not included. PHYSICAL MEDICINE AND REHABILITATION History & Physical Exam Patient Name: Jorge Guardado Date of : 1955 Sex: Male Admit Date/Time: 10/16/2024 4:33 PM Chief Complaint: Knee pain HPI: This is a 69 year-old male past medical history, significant for hypertension, obesity, gout who presented to [facility] orthopedic office on September 27, 2024 [...] fell hardwood floors, complaining of knee pain here- ruptured his quad tendon. He underwent surgical intervention again on 10/13 without complications. He was then admitted to the hospital. Orthopedics recommended brace to remain on at all times, dressing to remain on at all times, weight, bear as tolerated with brace locked and extension. He was stabilized and sent to this facility on 10/16 for pt/ot and nursing care Today patient feeling well. No concerns. PAST MEDICAL HISTORY: Past Medical History: Diagnosis Date Gout HLD (hyperlipidemia) HTN (hypertension) No Known Allergies History reviewed. No pertinent surgical history. No family history on file. Social History Socioeconomic History Marital status: Spouse name: Not on file Number of children: Not on file Years of education: Not on file Highest education level: Not on file Occupational History Not on file Tobacco Use Smoking status: Never Smokeless tobacco: Never Substance and Sexual Activity Alcohol use: Yes Alcohol/week: 2.0 standard drinks of alcohol Types: 2 Cans of beer per week Comment: Socially Drug use: Never Sexual activity: Not on file Other Topics Concern Not on file Social History Narrative Not on file Functional History: Independent w/ ADLS. REVIEW OF SYSTEMS: Constitutional: No weight loss, fever, chills, weakness or fatigue. HEENT: No visual loss, blurred vision, double vision or yellow sclera. No hearing loss, sneezing, congestion, runny nose or sore throat. Skin: No rash or itching. Cardiovascular: No chest pain, chest pressure or chest discomfort. No palpitations or pedal edema. Respiratory: No shortness of breath, cough or sputum production. Gastrointestinal: No anorexia, nausea, vomiting or diarrhea. No abdominal pain or blood in stool. Genitourinary: No burning micturition. No urinary frequency or incontinence. Neurologic: No headache, dizziness, syncope, unilateral weakness, ataxia, numbness or tingling in the extremities. No change in bowel or bladder control. Musculoskeletal: No muscle pain, back pain, joint pain or stiffness. Hematologic: No bleeding or bruising. Psychiatric: No depression or anxiety. PHYSICAL EXAMINATION: Vitals: 10/16/24 1640 BP: 127/64 Pulse: 60 Resp: 18 Temp: 36.3 ??C (97.4 ??F) TempSrc: Temporal SpO2: 100% General: Alert, in no acute cardiopulmonary distress. Mental Status: Oriented to person, place and time. Normal affect. Head: Normocephalic. Eyes: Pupils are equal, round and reactive to light. Extraocular muscles intact. Ear, Nose and Throat: Oropharynx clear, mucous membranes moist. Ears and nose without masses, lesions or deformities. Neck: Supple, Trachea midline. Respiratory: Clear to auscultation and percussion. No wheezing, rales or rhonchi. Cardiovascular: Heart sounds normal. No thrills. Regular rate and rhythm, no murmurs, rubs or gallops. Gastrointestinal: Abdomen soft, non-tender, non-distended. Normal bowel sounds. Genitourinary: No costovertebral angle tenderness. Neurologic: Cranial nerves II-XII intact. No focal neurological deficits. Deep tendon reflexes +2 bilaterally. Negative Hoffmans sign bilaterally. Flexor plantar response bilaterally. Negative clonusbilaterally. Moves all extremities spontaneously. Sensation intact bilaterally. Skin: No rashes or lesions. No petechiae or purpura. No edema. + Right knee dressing C/D/I able to plantar flex and dorsi flex Musculoskeletal: No cyanosis or clubbing. No gross deformities. Normal range of motion. Strength 5/5 to b/l UE and LLE. Strength difficult to access to RLE due to pain. + Hinge brace in locked extension. Normal distal sensation to b/l LE . Normal capillary refill to b/l LE. Calf subtle b/l. 2+DP/AT/PT equal and b/l HOME MEDICATIONS: Home Medications acetaminophen (TYLENOL) 325 mg tablet Take 2 tablets (650 mg total) by mouth every 6 (six) hours ifneeded for mild pain, headaches or fever - temperature GREATER than 38 C (100.4 F). allopurinoL (ZYLOPRIM) 100 mg tablet Starting on 10/17/2024. Take 1 tablet (100 mg total) by mouth 1 (one) time each day. atorvastatin (LIPITOR) 20 mg tablet Take 1 tablet (20 mg total) by mouth at bedtime. celecoxib (CeleBREX) 200 mg capsule Take 1 capsule (200 mg total) by mouth 2 (two) times a day. docosahexaenoic acid-epa (Fish OiL) 120-180 mg capsule Starting on 10/17/2024. Take 1 capsule by mouth 1 (one) time each day. docusate sodium (COLACE) 100 mg capsule Take 1 capsule (100 mg total) by mouth 2 (two) times a day. glucosamine-chondroitin 500-400 mg tablet Starting on 10/17/2024. Take 1 tablet by mouth 1 (one) timeeach day. hydroCHLOROthiazide 12.5 mg tablet Starting on 10/17/2024. Take 1 tablet (12.5 mg total) by mouth 1 (one) time each day. multivitamin tablet Starting on 10/17/2024. Take 1 tablet by mouth 1 (one) time each day. oxyCODONE (ROXICODONE) 5 mg immediate release tablet Take 1 tablet (5 mg total) by mouth every 4 (four) hours if needed for moderate pain. Max Daily Amount: 30 mg CURRENT INPATIENT MEDICATIONS: Current Facility-Administered Medications: acetaminophen (TYLENOL) tablet 650 mg, 650 mg, oral, q6h PRN, RUPERTO Coates bisacodyL (DULCOLAX) suppository 10 mg, 10 mg, rectal, Daily PRN, RUPERTO Coates docusate sodium (COLACE) capsule 100 mg, 100 mg, oral, BID, RUPERTO Coates LABS: Lab Results Component Value Date WBC 9.1 10/10/2024 RBC 4.40 (L) 10/10/2024 HGB 14.9 10/10/2024 HCT 44.3 10/10/2024 MCV 100.2 (H) 10/10/2024 MCHC 33.6 10/10/2024 RDW 13.0 10/10/2024 PLT 318 10/10/2024 MPV 11.8 (H) 10/10/2024 NRBC 0.0 10/10/2024 DIFF Lab Results Component Value Date LYMPHOPCT 11.5 10/05/2024 NEUTROABS 7.28 (H) 10/05/2024 LYMPHSABS 1.15 10/05/2024 MONOABS 0.95 10/05/2024 EOSABS 0.47 10/05/2024 BASOSABS 0.11 10/05/2024 IMMGRANABS 0.05 (H) 10/05/2024 RETIC No results found for: RETIC , RETICCTPCT Lab Results Component Value Date NA 139 10/10/2024 K 4.2 10/10/2024 CL 103 10/10/2024 CO2 31 10/10/2024 GLUCOSE 81 10/10/2024 BUN 18 10/10/2024 CREATININE 0.93 10/10/2024 CALCIUM 9.6 10/10/2024 PROT 7.3 10/10/2024 ALBUMIN 3.6 10/10/2024 BILITOT 1.4 10/10/2024 AST 33 10/10/2024 ALT 39 10/10/2024 MG 2.1 10/05/2024 ALKPHOS 90 10/10/2024 EGFR 88 10/10/2024 IMPRESSION & PLAN: #Impaired mobility and self care -Secondary to R quadricept tendon rupture -Continue PT/OT & nursing care #Quadricept tendon rupture , right #S/p re-rupture -S/p surgical repair 09/29 & 10/13 [facility] [place] hinge brace on at all times , do not bend , locked in extension -WBAT RLE w/ cane or walker if needed -Follow up with [facility] after DC #Pain control -Tylenol 650 mg Q6H PRN -Celebrex 200 mg BID -Oxycodone 5 mg Q4H PRN #Hypertension -Hydrochlorothiazide 12.5 mg daily #Hyperlipidemia -Atorvastatin 20 mg nightly #Hx of gout -Allopurinol 100 mg daily DVTP: Lovenox 40 mg Q24 H Code status: Full code ____ Jorge Guardado is being admitted to the inpatient rehab unit in order to participate in an acute rehab program which evokes a multidisciplinary team approach in order to improve their functional mobility and activities of daily living. Physical therapy will be involved in order to provide gait andbalance training, improve strength and range of motion and utilize modalities as deemed necessary. Occupational Therapy will assess and educate with activities of daily living which include bathing dressing toileting and basic household activities. Speech therapy will evaluate speech, cognition, and swallowing and continue to follow as needed for any deficits in these areas. Patient will also be followed by internal medicine 24-hour nursing in order to monitor medical status and provide continuous education regarding medical conditions. Case management will start discharge planning and arrange for team conferences. Rehab goals: Increased functional ability, increased muscle strength and conditioning, progress to self-care andADLs. Educate the patient and the family on disease process and discharge back home into the community. Patient's progress will be discussed in weekly multidisciplinary team conferences along with any barriers which may inhibit patient from returning home safely. Rehab potential/prognosis: Patient has good rehab potential and is well motivated. Patient has family support. Disposition: Weekly multidisciplinary team conferences will be held in order to discuss the patient's progress, barriers, and goals regarding their discharge plan. Goals for the patient include returning home to their prior level of functioning with home services for continued rehab and recovery. Estimated length of stay: 2 weeks ____ Cosigned by Cynthia Bentley DO at 10/17/2024 3:22 PM EST Associated attestation - Cynthia Bentley DO - 10/17/2024 3:22 PM EST Patient seen and examined wall resting in wheelchair this morning. No acute events overnight. He reports that pain is controlled. Denies any numbness or tingling. Will continue to use right knee immobilizer. Will plan for follow-up with orthopedics. Proceed with therapy evaluations. Agree with H&P as documented by RUPERTO. documented in this encounter Consult Notes * RUPERTO Mendieta - 10/17/2024 9:34 AM EST Images from the original note were not included. NATALIA CONSULT NOTE Please contact author [RUPERTO Mendieta] via Recorded Future/[place]. Patient: Jorge Guardado Admission Date/Time: 10/16/2024 4:33 PM : 1955 [69 y.o.] Patient's PCP: Sara Blanc MD Attending Provider: Cynthia Bentley DO REASON FOR CONSULT Medical Co management S/p right quad tendon repair HISTORY OF PRESENT ILLNESS This is a 69-year-old male with past medical history of hypertension, gout, hypercholesteremia who recently had a right quad tendon repair done on 09/29 and had slipped and fallen the following day on09/30 and the patient was found to have a ruptured right quad tendon and now status post surgical repair for the second time on 10/13. His hospital course was uneventful. His vital signs were found to be stable labs are unremarkable. H&H 13/36.7. He was seen by physical therapy. And he was recommended for acute rehab. He is recommend to wear his brace at all times and walk extension. Do not bend the knee. WBAT with walker and crutches. Review of Systems Constitutional :no fever chills , appetite fair, sleeping well HEENT: denies headaches, visual changes, no dysphagia Respiratory: denies shortness of breath, coughing or wheezing Cardiac: denies chest pain, palpitations, orthopnea PND : No abd pain, no N/V. Moving bowels Genitourinary: denies any dysuria frequency urgency, or urinary retention Hematologic: Denies any easy bruising or bleeding tendency Musculoskeletal: right knee pain NEURO: no unilateral weakness, no headaches, no numbness. SKIN: no lesions or rashes Psych: denies any recent mood changes : anxiety or depression MEDICAL HISTORY Past Medical History Past Medical History: Diagnosis Date Gout HLD (hyperlipidemia) HTN (hypertension) Past Surgical History As noted above Social History reports that he has never smoked. He has never used smokeless tobacco. He reports current alcohol use of about 2.0 standard drinks of alcohol per week. He reports that he does not use drugs. Family History Denies Allergies has No Known Allergies. Medications allopurinoL, 100 mg, oral, Daily atorvastatin, 20 mg, oral, Nightly celecoxib, 200 mg, oral, BID docusate sodium, 100 mg, oral, BID enoxaparin, 40 mg, subcutaneous, Daily hydroCHLOROthiazide, 12.5 mg, oral, Daily multivitamin, 1 tablet, oral, Daily PRN medications: acetaminophen, bisacodyL, oxyCODONE Objective Vitals Visit Vitals BP (!) 142/61 Pulse 55 Temp 36.5 ??C (97.7 ??F) Resp 18 Temp (24hrs), Av.4 ??C (97.6 ??F), Min:36.3 ??C (97.4 ??F), Max:36.5 ??C (97.7 ??F) Physical Examination General: conscious alert no acute distress HEENT: pupils are equal round and reactive. extraocular movements are grossly intact lungs clear to auscultation, no wheezing or crackles noted heart regular rate and rhythm, no murmur or rubs abdomen soft nontender nondistended positive bowel sounds Musculoskeletal: Right leg in brace, pt wearing pants seen during therapy session Left leg without edema, erythema or calf tenderness neuro: non-focal skin: no rashes or lesions. psych: mood stable appearing, good eye contact. LAB RESULTS (most recent) HEMATOLOGY Lab Results Component Value Date WBC 9.8 10/17/2024 HGB 13.0 (L) 10/17/2024 HCT 37.4 (L) 10/17/2024 MCV 96.9 10/17/2024 PLT 228 10/17/2024 CHEMISTRY Lab Results Component Value Date GLUCOSE 109 (H) 10/17/2024 NA 138 10/17/2024 K 4.2 10/17/2024 CO2 27 10/17/2024 CL 105 10/17/2024 BUN 19 10/17/2024 CREATININE 1.08 10/17/2024 EGFR 73 10/17/2024 CALCIUM 9.1 10/17/2024 MG 2.1 10/05/2024 ANIONGAP 6 10/17/2024 Radiology No orders to display ASSESSMENT & PLAN This is a 69-year-old gentleman who presented to the hospital for right quadrant pain repair on 09/30 and unfortunately the following day he had a slip/fall and was found to rerupture of his right quadrant tendon # Right quadrant repair on 09/29 Status post fall found to have a re ruptured tendon Status post surgical repair on 10/13 Per rehab Brace to remain at all times and locked extension WBAT with walker/crutches Pain management oxycodone/Tylenol # Hypertension Hydrochlorothiazide 12.5 daily BP reasonable controlled Monitor for electrolyte derangements #Gout Continue allopurinol ASX # Hyperlipidemia- Statin DVT p lovenox 40mg Cosigned by Murphy Bright MD at 10/22/2024 11:48 PM EDT documented in this encounter Plan of Treatment Not on file documented as of this encounter Procedures Procedure Name Priority Date/Time Associated Diagnosis Comments POCT GLUCOSE BLOOD Routine 10/17/2024 11 :23 AM EST POCT GLUCOSE BLOOD Routine 10/17/2024 7: 43 AM EST CBC WITH AUTO DIFFERENTIAL Routine 10/17/2024 5:46 AM EST CBC AND DIFFERENTIAL Routine 10/17/2024 5:46 AM EST COMPREHENSIVE METABOLIC PANEL Routine 10/17/2024 5:46 AM EST documented in this encounter Results * (ABNORMAL) POCT Glucose, blood (10/17/2024 11:23 AM EST) [facility] Glucose POCT 106(H) 70 - 100 mg/dL 10/17/2024 11:23 AM EST [facility] Blood Capillary blood specimen / Unknown 10/17/2024 11:23 AM EST 10/17/2024 11:26 AM EST Cynthia Bentley DO LAB POINT OF CARE TEST DOCKED DEVICE UNSOLICITED RESULTS Final Result Performing Organization Address City/[facility]/ZIP Co de Phone Number [facility] [address] [place] [address], [place] [phone] * (ABNORMAL) POCT Glucose, blood (10/17/2024 7:43 AM EST) [facility] Glucose POCT 109(H) 70 - 100 mg/dL 10/17/2024 7:44 AM EST [facility] Blood Capillary blood specimen / Unknown 10/17/2024 7:43 AM EST 10/17/2024 7:46 AM EST Cynthiamartha Martinezese LAB POINT OF CARE TEST DOCKED DEVICE UNSOLICITED RESULTS Final Result [facility] [address] [place] [address], [place] [phone] * (ABNORMAL) CBC auto differential (10/17/2024 5:46 AM EST) [facility] WBC 9.8 4.8 - 10.8 K/mcL LAB HEMETOLOGY METHOD 10/17/2024 6:14 AM [facility] RBC 3.90(L) 4.50 - 5.50 M/mcL LAB HEMETOLOGY METHOD 10/17/2024 6:14 AM [facility] Hemoglobin 13.0(L) 13.5 - 17.5 g/dL LAB HEMETOLOGY METHOD 10/17/2024 6:14 AM [facility] Hematocrit 37.4(L) 42.0 - 54.0 % LAB HEMETOLOGY METHOD 10/17/2024 6:14 AM [facility] MCV 96.9 79.0 - 98.0 FL LAB HEMETOLOGY METHOD 10/17/2024 6:14 AM [facility] MCH 33.7(H) 27.0 - 32.0 pcg LAB HEMETOLOGY METHOD 10/17/2024 6:14 AM [facility] MCHC 34.8 32.0 - 37.0 g/dL LAB HEMETOLOGY METHOD 10/17/2024 6:14 AM [facility] RDW 12.9 11.0 - 15.0 % LAB HEMETOLOGY METHOD 10/17/2024 6:14 AM [facility] Platelets 228 130 - 400 K/mcL LAB HEMETOLOGY METHOD 10/17/2024 6:14 AM [facility] MPV 10.8 7.0 - 11.0 FL LAB HEMETOLOGY METHOD 10/17/2024 6:14 AM [facility] NRBC 0.0 <1.0 % LAB HEMETOLOGY METHOD 10/17/2024 6:14 AM [facility] NRBC Absolute 0.00 <0.10 K/mcL LAB HEMETOLOGY METHOD 10/17/2024 6:14 AM [facility] Neutrophils Relative 64.4 % LAB HEMETOLOGY METHOD 10/17/2024 6:14 AM [facility] Lymphocytes Relative 18.1 % LAB HEMETOLOGY METHOD 10/17/2024 6:14 AM [facility] Monocytes Relative 8.9 % LAB HEMETOLOGY METHOD 10/17/2024 6:14 AM [facility] Eosinophils Relative 7.0 % LAB HEMETOLOGY METHOD 10/17/2024 6:14 AM [facility] Basophils Relative 1.2 % LAB HEMETOLOGY METHOD 10/17/2024 6:14 AM [facility] Immature Granulocytes Relative 0.4 % LAB HEMETOLOGY METHOD 10/17/2024 6:14 AM [facility] Neutrophils Absolute 6.31 1.50 - 7.00 K/mcL LAB HEMETOLOGY METHOD 10/17/2024 6:14 AM [facility] Lymphocytes Absolute 1.78 1.00 - 5.00 K/mcL LAB HEMETOLOGY METHOD 10/17/2024 6:14 AM [facility] Monocytes Absolute 0.87 0.20 - 1.00 K/mcL LAB HEMETOLOGY METHOD 10/17/2024 6:14 AM [facility] Eosinophils Absolute 0.69(H) 0.00 - 0.50 K/mcL LAB HEMETOLOGY METHOD 10/17/2024 6:14 AM [facility] Basophils Absolute 0.12 0.00 - 0.20 K/mcL LAB HEMETOLOGY METHOD 10/17/2024 6:14 AM [facility] Immature Granulocytes Absolute 0.04(H) 0.00 - 0.03 K/mcL LAB HEMETOLOGY METHOD 10/17/2024 6:14 AM [facility] Blood Venous blood specimen / Unknown Venipuncture / Unknown 10/17/2024 5:46 AM EST 10/17/2024 6:04 AM EST us [facility]he [facility] LAB BLOOD ORDERABLES Final Re sult [facility] [address] [place] [address], [place] [phone] * (ABNORMAL) Comprehensive metabolic panel (10/17/2024 5:46 AM EST) Sodium 138 133 - 145 mmol/L LAB CHEMISTRY METHOD 10/17/2024 6:32 AM EST [facility] Potassium 4.2 3.5 - 5.5 mmol/L LAB CHEMISTRY METHOD 10/17/2024 6:32 AM [facility] Chloride 105 96 - 110 mmol/L LAB CHEMISTRY METHOD 10/17/2024 6:32 AM [facility] CO2 27 21 - 32 mmol/L LAB CHEMISTRY METHOD 10/17/2024 6:32 AM [facility] Anion Gap 6 3 - 11 LAB CHEMISTRY METHOD 10/17/2024 6:32 AM [facility] Glucose 107(H) 70 - 100 mg/dL LAB CHEMISTRY METHOD 10/17/2024 6:32 AM [facility] BUN 19 5 - 25 mg/dL LAB CHEMISTRY METHOD 10/17/2024 6:32 AM [facility] Creatinine 1.08 0.70 - 1.30 mg/dL LAB CHEMISTRY METHOD 10/17/2024 6:32 AM [facility] eGFR 73 >=60 mL/min/1. 73m2 LAB CHEMISTRY METHOD 10/17/2024 6:32 AM [facility] Comment:Calculation based on the??Chronic Kidney Disease Epidemiology Collaboration (CKD-EPI) equation refit??without adjustment for race. BUN/Creatinine Ratio 17.6 LAB CHEMISTRY METHOD 10/17/2024 6:32 AM [facility] Calcium 9.1 8.5 - 10.5 mg/dL LAB CHEMISTRY METHOD 10/17/2024 6:32 AM [facility] AST (SGOT) 17 10 - 42 unit/L LAB CHEMISTRY METHOD 10/17/2024 6:32 AM [facility] ALT (SGPT) 30 10 - 60 unit/L LAB CHEMISTRY METHOD 10/17/2024 6:32 AM [facility] Alkaline Phosphatase 76 42 - 121 unit/L LAB CHEMISTRY METHOD 10/17/2024 6:32 AM EST [facility] Total Protein 6.3 6.0 - 8.0 g/dL LAB CHEMISTRY METHOD 10/17/2024 6:32 AM [facility] Albumin 2.9(L) 3.2 - 5.0 g/dL LAB CHEMISTRY METHOD 10/17/2024 6:32 AM [facility] Total Bilirubin 0.9 0.0 - 1.4 mg/dL LAB CHEMISTRY METHOD 10/17/2024 6:32 AM EST [facility] Blood Venous blood specimen / Unknown Venipuncture / Unknown 10/17/2024 5:46 AM EST 10/17/2024 6:04 AM EST [facility] LAB BLOOD ORDERABLES Final Re sult [facility] [address] [place] [address], documented in this encounter Visit Diagnoses Diagnosis Quadriceps tendon rupture, right, initial encounter- Primary documented in this encounter Admitting Diagnoses Diagnosis Quadriceps tendon rupture, right, initial encounter documented in this encounter Administered Medications Inactive Administered Medications - up to 3 most recent administrations Medication Order MAR Action Action Date Dose Rate Site acetaminophen (TYLENOL) tablet 650 mg 650 mg, oral, Every 6 hours PRN, mild pain, fever - temperature GREATER than 38 C (100.4 F), Starting on Wed10/16/24 at 1833 Given 10/17/2024 8:48 PM EST 650 mg allopurinoL (ZYLOPRIM) tablet 100 mg 100 mg, oral, Daily, First dose on Wed10/17/24 at 0900 Given 10/19/2024 8:37 AM EST 100 mg Given 10/18/2024 9:18 AM EST 100 mg Given 10/17/2024 9:33 AM EST 100 mg atorvastatin (LIPITOR) tablet 20 mg 20 mg, oral, Nightly, First dose on Wed10/16/24 at 2100 Given 10/18/2024 8:45 PM EST 20 mg Given 10/17/2024 8:48 PM EST 20 mg Given 10/16/2024 9:23 PM EST 20 mg bisacodyL (DULCOLAX) suppository 10 mg 10 mg, rectal, Daily PRN, constipation, Starting on Wed10/16/24 at 1833 celecoxib (CeleBREX) capsule 200 mg 200 mg, oral, 2 times daily, First dose on Wed10/16/24 at 2100 Given 10/19/2024 8:37 AM EST 200 mg Given 10/18/2024 8:45 PM EST 200 mg Given 10/18/2024 9:18 AM EST 200 mg docusate sodium (COLACE) capsule 100 mg 100 mg, oral, 2 times daily, First dose on Wed10/16/24 at 2100 Given 10/19/2024 8:36 AM EST 100 mg Given 10/18/2024 8:45 PM EST 100 mg Given 10/18/2024 9:18 AM EST 100 mg enoxaparin (LOVENOX) injection 40 mg 40 mg, subcutaneous, Daily, First dose on Wed10/17/24 at 0900, Indication: VTE/PE Prophylaxis, Indications: DVTPIndications:DVTP Given 10/19/2024 8:37 AM EST 40 mg Right Upper Abdomen Given 10/18/2024 9:18 AM EST 40 mg Ri ght Lower Abdomen Given 10/17/2024 9:34 AM EST 40 mg Le ft Upper Abdomen hydroCHLOROthiazide (HYDRODIURIL) tablet 12.5 mg 12.5 mg, oral, Daily, First dose on Wed10/17/24 at 0900 Given 10/19/2024 8:36 AM EST 12.5 mg Given 10/18/2024 9:18 AM EST 12.5 mg Given 10/17/2024 9:33 AM EST 12.5 mg multivitamin tablet 1 tablet 1 tablet, oral, Daily, First dose on Wed10/17/24 at 0900 Given 10/19/2024 8:37 AM EST 1 tablet Given 10/18/2024 9:18 AM EST 1 tablet Given 10/17/2024 9:34 AM EST 1 tablet documented in this encounter Discontinued Medications Medication Sig Discontinue Reason Start Date End Da te docosahexaenoic acid-epa (Fish OiL) 120-180 mg capsule Take 1 capsule by mouth 1 (one) time each day. 10/17/2024 10/16/2024 glucosamine-chondroiti n 500-400 mg tablet Take 1 tablet by mouth 1 (one) time each day. Formulary change 10/17/2024 10/16/2024 docusate sodium (COLACE) 100 mg capsule Take 1 capsule (100 mg total) by mouth 2 (two) times a day. 10/19/2024 allopurinoL (ZYLOPRIM) 100 mg tablet Take 1 tablet (100 mg total) by mouth 1 (one) time each day. 10/17/2024 10/19/2024 hydroCHLOROthiazide 12.5 mg tablet Take 1 tablet (12.5 mg total) by mouth 1 (one) time each day. 10/17/2024 10/19/2024 celecoxib (CeleBREX) 200 mg capsule Take 1 capsule (200 mg total) by mouth 2 (two) times a day. 10/19/2024 atorvastatin (LIPITOR) 20 mg tablet Take 1 tablet (20 mg total) by mouth at bedtime. 10/16/2024 10/19/2024 multivitamin tablet Take 1 tablet by mouth 1 (one) time each day. 10/17/2024 10/19/2024 oxyCODONE (ROXICODONE) 5 mg immediate release tablet Take 1 tablet (5 mg total) by mouth every 4 (four) hours if needed for moderate pain. Max Daily Amount: 30 mg Stop Taking at Discharge 10/19/2024 documented as of this encounter Historical Medications * This list may reflect changes made after this encounter. acetaminophen (TYLENOL) 325 mg tablet Take 2 tablets (650 mg total) by mouth every 6 (six) hours if needed for mild pain, headaches or fever - temperature GREATER than 38 C (100.4 F). glucosamine-lisha droitin 500-400 mg tablet Take 1 tablet by mouth 1 (one) time each day. 10/17/2024 docosahexaenoic acid-epa (Fish OiL) 120-180 mg capsule Take 1 capsule by mouth 1 (one) time each day. 10/17/2024 multivitamin tablet Take 1 tablet by mouth 1 (one) time each day. 10/17/2024 atorvastatin (LIPITOR) 20 mg tablet Take 1 tablet (20 mg total) by mouth at bedtime. 10/16/2024 celecoxib (CeleBREX) 200 mg capsule Take 1 capsule (200 mg total) by mouth 2 (two) times a day. hydroCHLOROthiaz cindy 12.5 mg tablet Take 1 tablet (12.5 mg total) by mouth 1 (one) time each day. 10/17/2024 allopurinoL (ZYLOPRIM) 100 mg tablet Take 1 tablet (100 mg total) by mouth 1 (one) time each day. 10/17/2024 oxyCODONE (ROXICODONE) 5 mg immediate release tablet Take 1 tablet (5 mg total) by mouth every 4 (four) hours if needed for moderate pain. Max Daily Amount: 30 mg docusate sodium (COLACE) 100 mg capsule Take 1 capsule (100 mg total) by mouth 2 (two) times a day. added in this encounter Active and Recently Administered Medications Times are shown in EST. Scheduled Medication Order 10/17/2024 10/18/2024 10/19/2024 allopurinoL (ZYLOPRIM) tablet 100 mg 100 mg, oral, Daily, First dose on Wed10/17/24 at 0900 0933 (Given - Provider: Thuy Marte RN) 0918 (Given - Provider: Thuy Marte RN) 0837 (Given - Provider: Kamla Curiel RN) atorvastatin (LIPITOR) tablet 20 mg 20 mg, oral, Nightly, First dose on Wed10/16/24 at 2100 2047 (Given - Provider: Ligia Sherman RN) 2044 (Given - Provider: Ligia Sherman RN) celecoxib (CeleBREX) capsule 200 mg 200 mg, oral, 2 times daily, First dose on Wed10/16/24 at 2100 33 (Given - Provider: Thuy Marte RN)2047 (Given - Provider: Ligia Sherman RN) 917 (Given - Provider: Thuy Marte RN)2044 (Given - Provider: Ligia Sherman RN) 0837 (Given - Provider: Kamla Curiel RN) docusate sodium (COLACE) capsule 100 mg 100 mg, oral, 2 times daily, First dose on Wed10/16/24 at 2100 0433 (Given - Provider: Thuy Marte RN)2047 (Given - Provider: Ligia Sherman RN) 917 (Given - Provider: Thuy Marte RN)2044 (Given - Provider: Ligia Sherman RN) 0836 (Given - Provider: Kamla Curiel RN) enoxaparin (LOVENOX) injection 40 mg 40 mg, subcutaneous, Daily, First dose on Wed10/17/24 at 0900, Indication: VTE/PE Prophylaxis, Indications: DVTP 0934 (Given - Provider: Thuy Marte RN) 09 (Given - Provider: Thuy Marte RN) 0837 (Given - Provider: Kamla Curiel RN) hydroCHLOROthiazide (HYDRODIURIL) tablet 12.5 mg 12.5 mg, oral, Daily, First dose on Wed10/17/24 at 0900 0933 (Given - Provider: Thuy Marte RN) 09 (Given - Provider: Thuy Marte RN) 0836 (Given - Provider: Kamla Curiel RN) multivitamin tablet 1 tablet 1 tablet, oral, Daily, First dose on Wed10/17/24 at 0900 0934 (Given - Provider: Thuy Marte RN) 09 (Given - Provider: Thuy Marte RN) 0837 (Given - Provider: Kamla Curiel RN) PRN Medication Order 10/17/2024 10/18/2024 10/19/2024 acetaminophen (TYLENOL) tablet 650 mg 650 mg, oral, Every 6 hours PRN, mild pain, fever - temperature GREATER than 38 C (100.4 F), Starting on Wed10/16/24 at 1833 2048 (Given - Provider: Ligia Sherman RN) bisacodyL (DULCOLAX) suppository 10 mg 10 mg, rectal, Daily PRN, constipation, Starting on Wed10/16/24 at 1833 oxyCODONE (ROXICODONE) immediate release tablet 5 mg 5 mg, oral, Every 4 hours PRN, moderate pain, Starting on Wed10/16/24 at 1840 documented in this encounter Orders Medications Ordered That Romel ht Not Have Been Administered Count Last Ordered Date First Ordered Date bisacodyL (DULCOLAX) suppository 10 mg 1 docusate sodium (COLACE) capsule 100 mg 1 0 10/16/2024 oxyCODONE (ROXICODONE) immed iate release tablet 5 mg 1 10/16/2024 Lab Orders Without Results Count Last Ordered D ate First Ordered Date POCT GLUCOSE, BLOOD 3 10/17/2024 10/17/19 Admission Count Last Ordered Date First Orde red Date ADMIT TO INPATIENT REHAB 1 10/16/2024 Discharge Count Last Ordered Date First Orde red Date DISCHARGE PATIENT 1 10/19/2024 documented in this encounter Additional Health Concerns Assessment Noted Time PHQ-9 Depression Total Score: 0 10/19/19 2:42 PM EST documented as of this encounter Care Teams [employer] Relationship Specialty Start Date End Date Fausto Pat NP [address] [facility] [place], [place] PCP - General Family Medicine 10/17/24 documented as of this encounter
--- OUTSIDE RECORDS SUMMARY | 2024-10-25 15:07 | XMS_ITS | Clinical Summary ---
Author Organization [facility] Address [address] [place] [address] Phone Care Team Providers Care Ethylbenzene Converter Operator Name Role Phone Fausto Pat NP Primary Care Provider Allergies No known active allergies Medications acetaminophen (TYLENOL) 325 mg tablet Take 2 tablets (650 mg total) by mouth every 6 (six) hours if needed for mild pain, headaches or fever - temperature GREATER than 38 C (100.4 F). Active allopurinoL (ZYLOPRIM) 100 mg tablet Take 1 tablet (100 mg total) by mouth 1 (one) time each day. 30 each 10/20/19 25 025 Active atorvastatin (LIPITOR) 20 mg tablet Take 1 tablet (20 mg total) by mouth at bedtime. 30 each 10/20/19 25 025 Active celecoxib (CeleBREX) 200 mg capsule Take 1 capsule (200 mg total) by mouth 2 (two) times a day. 60 each 10/20/19 25 025 Active docusate sodium (COLACE) 100 mg capsule Take 1 capsule (100 mg total) by mouth 2 (two) times a day. 60 each 10/20/19 25 025 Active hydroCHLOROth iazide 12.5 mg tablet Take 1 tablet (12.5 mg total) by mouth 1 (one) time each day. 30 each 10/20/19 25 025 Active multivitamin tablet Take 1 tablet by mouth 1 (one) time each day. 30 each 10/20/19 25 025 Active enoxaparin (LOVENOX) 40 mg/0.4 mL syringeIndica tions:DVTP Inject 0.4 mL (40 mg total) under the skin 1 (one) time each day. 30 each 10/20/19 25 Active docusate sodium (COLACE) 100 mg capsule Take 1 capsule (100 mg total) by mouth 2 (two) times a day. 025 Discontinued oxyCODONE (ROXICODONE) 5 mg immediate release tablet Take 1 tablet (5 mg total) by mouth every 4 (four) hours if needed for moderate pain. Max Daily Amount: 30 mg Discontinued(St op Taking at Discharge) allopurinoL (ZYLOPRIM) 100 mg tablet Take 1 tablet (100 mg total) by mouth 1 (one) time each day. 10/18/19 025 Discontinued hydroCHLOROth iazide 12.5 mg tablet Take 1 tablet (12.5 mg total) by mouth 1 (one) time each day. 10/18/19 025 Discontinued celecoxib (CeleBREX) 200 mg capsule Take 1 capsule (200 mg total) by mouth 2 (two) times a day. Discontinued atorvastatin (LIPITOR) 20 mg tablet Take 1 tablet (20 mg total) by mouth at bedtime. 10/17/19 025 Discontinued multivitamin tablet Take 1 tablet by mouth 1 (one) time each day. 10/18/19 025 Discontinued docosahexaeno ic acid-epa (Fish OiL) 120-180 mg capsule Take 1 capsule by mouth 1 (one) time each day. 10/18/19 025 Discontinued glucosamine-c hondroitin 500-400 mg tablet Take 1 tablet by mouth 1 (one) time each day. 10/18/19 025 Discontinued(Fo rmulary change) Active Problems Problem Noted Date Diagnosed Date Quadriceps tendon rupture, right, initial encoun ter 10/16/2024 Encounters Date Type Department Care Team Description 10/18/2024 Plan of Care Documentation [facility] [address] [place] [address] [phone] 10/16/2024 4:33 PM EST - 10/19/2024 11:05 AM EST Hospital Encounter [facility] [address] [place] [address] Cynthia Bentley DO Discharge Disposition: Home or Self Care 10/10/2024 Lab Requisition [facility] [address] [place] [address] Sara Blanc MD Encounter for other general examination 10/05/2024 Lab Requisition [facility] [address] [place] [address] Sara Blanc MD Encounter for other general examination from Last 3 Months Medical History Medical History Date Comments HTN (hypertension) HLD (hyperlipidemia) Gout Social History Tobacco Use Types Packs/Day Years [...] Orientation Straight 10/16/2024 9: 58 AM EST Obstetrics History Last Filed Vital Signs Vital Sign Reading [...] oz) 10/17/2024 3:45 P M EST Height 178 cm (5' 10.08 ) 10/16/2024 11:22 AM ES T Body Mass Index 34.04 10/16/2024 11:22 AM EST Plan of Treatment Health Maintenance Due Date Last Done Comments DTaP,Tdap,and Td Vaccines (1 - Tdap) 1972 Pneumococcal Vaccine: 50+ Ye ars (1 of 1 - PCV) 2003 Zoster Vaccines (1 of 2) 2003 COVID-19 Vaccine (1 - 2023-2 5 season) 2024 Influenza Vaccine (#1) 2024 Cholesterol Screening (Lipid Panel) 10/04/2024 Colorectal Cancer Screening: Colonoscopy 10/04/2024 Hepatitis C Screening 10/04/2024 Medicare Annual Wellness Visit 10/04/2024 Depression Screening 10/18/2025 10/18/2024 Social Influencers of Health Screening 10/18/2025 10/18/2024 Falls Risk Assessment 10/19/2025 10/19/2024 RSV Immunization Patients 60 + Years Old (1 - 1-dose 75+ series) 2028 HIB Vaccines Aged Out No longer eligi ble based on patient's age to complete this topic HPV Vaccines Aged Out No longer eligi ble based on patient's age to complete this topic Hepatitis A Vaccines Aged Out No long er eligible based on patient's age to complete this topic Hepatitis B Vaccines Aged Out No long er eligible based on patient's age to complete this topic IPV Vaccines Aged Out No longer eligi ble based on patient's age to complete this topic MMR Vaccines Aged Out No longer eligi ble based on patient's age to complete this topic Meningococcal ACWY Vaccine Aged Out N o longer eligible based on patient's age to complete this topic Meningococcal B Vacine Aged Out No lo nger eligible based on patient's age to complete this topic RSV Immunization Patients Un jermain 20 months Aged Out No longer eligible b ased on patient's age to complete this topic Varicella Vaccines Aged Out No longer eligible based on patient's age to complete this topic Procedures Procedure Name Priority Date/Time Associated Diagnosis Comments POCT GLUCOSE BLOOD Routine 10/17/2024 11 :23 AM EST POCT GLUCOSE BLOOD Routine 10/17/2024 7: 43 AM EST CBC WITH AUTO DIFFERENTIAL Routine 10/17/2024 5:46 AM EST COMPREHENSIVE METABOLIC PANEL Routine 10/17/2024 5:46 AM EST CBC AND DIFFERENTIAL Routine 10/17/2024 5:46 AM EST COMPLETE BLOOD COUNT Routine 10/10/2024 7:22 AM EST Encounter for other general examination COMPREHENSIVE METABOLIC PANEL Routine 10/10/2024 7:22 AM EST Encounter for other general examination CBC WITH AUTO DIFFERENTIAL Routine 10/05/2024 5:24 AM EST Encounter for other general examination MAGNESIUM Routine 10/05/2024 5:24 AM EST Encounter for other general examination CBC AND DIFFERENTIAL Routine 10/05/2024 5:24 AM EST Encounter for other general examination COMPREHENSIVE METABOLIC PANEL Routine 10/05/2024 5:24 AM EST Encounter for other general examination from Last 3 Months Results * (ABNORMAL) POCT Glucose, blood (10/17/2024 11:23 AM EST) Only the most recent of2 resultswithin the time period is included. Glucose POCT 106(H) 70 - 100 mg/dL 10/17/2024 11:23 AM EST [facility] Blood Capillary blood specimen / Unknown 10/17/2024 11:23 AM EST 10/17/2024 11:26 AM EST Cynthia Bentley DO LAB POINT OF CARE TEST DOCKED DEVICE UNSOLICITED RESULTS Final Result [facility] [address] [place] [address], [place] [phone] * (ABNORMAL) CBC auto differential (10/17/2024 5:46 AM EST) Only the most recent of2 resultswithin the time period is included. WBC 9.8 4.8 - 10.8 K/mcL LAB HEMETOLOGY METHOD 10/17/2024 6:14 AM [facility] RBC 3.90(L) 4.50 - 5.50 M/mcL LAB HEMETOLOGY METHOD 10/17/2024 6:14 AM [facility] Hemoglobin 13.0(L) 13.5 - 17.5 g/dL LAB HEMETOLOGY METHOD 10/17/2024 6:14 AM [facility] Hematocrit 37.4(L) 42.0 - 54.0 % LAB HEMETOLOGY METHOD 10/17/2024 6:14 AM [facility] MCV 96.9 79.0 - 98.0 FL LAB HEMETOLOGY METHOD 10/17/2024 6:14 AM [facility] MCH 33.7(H) 27.0 - 32.0 pcg LAB HEMETOLOGY METHOD 10/17/2024 6:14 AM [facility] MCHC 34.8 32.0 - 37.0 g/dL LAB HEMETOLOGY METHOD 10/17/2024 6:14 AM [facility] RDW 12.9 11.0 - 15.0 % LAB HEMETOLOGY METHOD 10/17/2024 6:14 AM [facility] Platelets 228 130 - 400 K/mcL LAB HEMETOLOGY METHOD 10/17/2024 6:14 AM [facility] MPV 10.8 7.0 - 11.0 FL LAB HEMETOLOGY METHOD 10/17/2024 6:14 AM [facility] NRBC 0.0 <1.0 % LAB HEMETOLOGY METHOD 10/17/2024 6:14 AM [facility] NRBC Absolute 0.00 <0.10 K/mcL LAB HEMETOLOGY METHOD 10/17/2024 6:14 AM [facility] Neutrophils Relative 64.4 % LAB HEMETOLOGY METHOD 10/17/2024 6:14 AM [facility] Lymphocytes Relative 18.1 % LAB HEMETOLOGY METHOD 10/17/2024 6:14 AM [facility] Monocytes Relative 8.9 % LAB HEMETOLOGY METHOD 10/17/2024 6:14 AM [facility] Eosinophils Relative 7.0 % LAB HEMETOLOGY METHOD 10/17/2024 6:14 AM [facility] Basophils Relative 1.2 % LAB HEMETOLOGY METHOD 10/17/2024 6:14 AM [facility] Immature Granulocytes Relative 0.4 % LAB HEMETOLOGY METHOD 10/17/2024 6:14 AM [facility] Neutrophils Absolute 6.31 1.50 - 7.00 K/mcL LAB HEMETOLOGY METHOD 10/17/2024 6:14 AM [facility] Lymphocytes Absolute 1.78 1.00 - 5.00 K/mcL LAB HEMETOLOGY METHOD 10/17/2024 6:14 AM [facility] Monocytes Absolute 0.87 0.20 - 1.00 K/mcL LAB HEMETOLOGY METHOD 10/17/2024 6:14 AM [facility] Eosinophils Absolute 0.69(H) 0.00 - 0.50 K/mcL LAB HEMETOLOGY METHOD 10/17/2024 6:14 AM EST [facility] Basophils Absolute 0.12 0.00 - 0.20 K/[facility] LAB HEMETOLOGY METHOD 10/17/2024 6:14 AM [facility] Immature Granulocytes Absolute 0.04(H) 0.00 - 0.03 K/[facility] LAB HEMETOLOGY METHOD 10/17/2024 6:14 AM EST [facility] Blood Venous blood specimen / Unknown Venipuncture / Unknown 10/17/2024 5:46 AM EST 10/17/2024 6:04 AM EST Moshe HICKEY LAB BLOOD ORDERABLES Final Re sult [facility] [address] [place] [address], * (ABNORMAL) Comprehensive metabolic panel (10/17/2024 5:46 AM EST) Only the most recent of3 resultswithin the time period is included. Sodium 138 133 - 145 mmol/L LAB CHEMISTRY METHOD 10/17/2024 6:32 AM [facility] Potassium 4.2 3.5 - 5.5 mmol/L LAB CHEMISTRY METHOD 10/17/2024 6:32 AM [facility] Chloride 105 96 - 110 mmol/L LAB CHEMISTRY METHOD 10/17/2024 6:32 AM [facility] CO2 27 21 - 32 mmol/L LAB CHEMISTRY METHOD 10/17/2024 6:32 AM [facility] Anion Gap 6 3 - 11 LAB CHEMISTRY METHOD 10/17/2024 6:32 AM [facility] Glucose 107(H) 70 - 100 mg/dL LAB CHEMISTRY METHOD 10/17/2024 6:32 AM [facility] BUN 19 5 - 25 mg/dL LAB CHEMISTRY METHOD 10/17/2024 6:32 AM [facility] Creatinine 1.08 0.70 - 1.30 mg/dL LAB CHEMISTRY METHOD 10/17/2024 6:32 AM [facility] eGFR 73 >=60 mL/min/1. 73m2 LAB CHEMISTRY METHOD 10/17/2024 6:32 AM [facility] Comment:Calculation based on the??Chronic Kidney Disease Epidemiology Collaboration (CKD-EPI) equation refit??without adjustment for race. BUN/Creatinine Ratio 17.6 LAB CHEMISTRY METHOD 10/17/2024 6:32 AM [facility] Calcium 9.1 8.5 - 10.5 mg/dL LAB CHEMISTRY METHOD 10/17/2024 6:32 AM [facility] AST (SGOT) 17 10 - 42 unit/L LAB CHEMISTRY METHOD 10/17/2024 6:32 AM [facility] ALT (SGPT) 30 10 - 60 unit/L LAB CHEMISTRY METHOD 10/17/2024 6:32 AM [facility] Alkaline Phosphatase 76 42 - 121 unit/L LAB CHEMISTRY METHOD 10/17/2024 6:32 AM [facility] Total Protein 6.3 6.0 - 8.0 g/dL LAB CHEMISTRY METHOD 10/17/2024 6:32 AM [facility] Albumin 2.9(L) 3.2 - 5.0 g/dL LAB CHEMISTRY METHOD 10/17/2024 6:32 AM [facility] Total Bilirubin 0.9 0.0 - 1.4 mg/dL LAB CHEMISTRY METHOD 10/17/2024 6:32 AM [facility] Blood Venous blood specimen / Unknown Venipuncture / Unknown 10/17/2024 5:46 AM EST 10/17/2024 6:04 AM EST Moshe HICKEY LAB BLOOD ORDERABLES Final Re sult [facility] [address] [place] [address], * (ABNORMAL) Complete blood count (10/10/2024 7:22 AM EST) [facility] WBC 9.1 4.8 - 10.8 K/mcL LAB HEMETOLOGY METHOD 10/10/2024 11:49 AM EST [facility] RBC 4.40(L) 4.50 - 5.50 M/mcL LAB HEMETOLOGY METHOD 10/10/2024 11:49 AM EST [facility] Hemoglobin 14.9 13.5 - 17.5 g/dL LAB HEMETOLOGY METHOD 10/10/2024 11:49 AM [facility] Hematocrit 44.3 42.0 - 54.0 % LAB HEMETOLOGY METHOD 10/10/2024 11:49 AM [facility] MCV 100.2(H) 79.0 - 98.0 FL LAB HEMETOLOGY METHOD 10/10/2024 11:49 AM [facility] MCH 33.7(H) 27.0 - 32.0 pcg LAB HEMETOLOGY METHOD 10/10/2024 11:49 AM [facility] MCHC 33.6 32.0 - 37.0 g/dL LAB HEMETOLOGY METHOD 10/10/2024 11:49 AM EST [facility] RDW 13.0 11.0 - 15.0 % LAB HEMETOLOGY METHOD 10/10/2024 11:49 AM [facility] Platelets 318 130 - 400 K/mcL LAB HEMETOLOGY METHOD 10/10/2024 11:49 AM [facility] MPV 11.8(H) 7.0 - 11.0 FL LAB HEMETOLOGY METHOD 10/10/2024 11:49 AM [facility] NRBC 0.0 <1.0 % LAB HEMETOLOGY METHOD 10/10/2024 11:49 AM EST [facility] NRBC Absolute 0.00 <0.10 K/mcL LAB HEMETOLOGY METHOD 10/10/2024 11:49 AM EST [facility] Blood Venous blood specimen / Unknown Venipuncture / Unknown 10/10/2024 7:22 AM EST 10/10/2024 11:30 AM EST Sara Blanc MD LAB BLOOD ORDERABLES Final Res ult [facility] [address] [place] [address], [place] [phone] * Magnesium (10/05/2024 5:24 AM EST) Magnesium 2.1 1.9 - 2.6 mg/dL LAB CHEMISTRY METHOD 10/05/2024 12:10 PM EST [facility] Blood Venous blood specimen / Unknown Venipuncture / Unknown 10/05/2024 5:24 AM EST 10/05/2024 10:54 AM EST Sara Blanc MD LAB BLOOD ORDERABLES Final Res ult [facility] [address] [place] [address], [place] [phone] from Last 3 Months Insurance MEDICARE [employer] Advance Directives Documents on File Type Date Recorded 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 Do not modify or discontinue any currently active code status orders. Care Teams Ethylbenzene Converter Operator Relationship Specialty Start Date End Date Fausto Pat NP [address] [facility] [place] PCP - General Family Medicine 10/17/24
--- OUTSIDE RECORDS SUMMARY | 2024-10-25 15:07 | XMS_ITS | Encounter Summary ---
Author Organization [facility] Address [address] [place] [address] Care Team Providers Care Director Microbiology Name Role Phone Fausto Pat NP Primary Care Provider Encounter Details Date Type Department Care Team (Late st Contact Info) Description 10/05/2024 Lab Requisition [facility] Lab [address] [facility] [address] Sara Blanc MD [address] [place] [id number] Encounter for other general examination Social History [...] Procedure Name Priority Date/Time Associated Diagnosis Comments CBC WITH AUTO DIFFERENTIAL Routine 10/05/2024 5:24 AM EST Encounter for other general examination CBC AND DIFFERENTIAL Routine 10/05/2024 5:24 AM EST Encounter for other general examination MAGNESIUM Routine 10/05/2024 5:24 AM EST Encounter for other general examination COMPREHENSIVE METABOLIC PANEL Routine 10/05/2024 5:24 AM EST Encounter for other general examination documented in this encounter Results * (ABNORMAL) CBC auto differential (10/05/2024 5:24 AM EST) [facility] Signature WBC 10.0 4.8 - 10.8 K/mcL LAB HEMETOLOGY METHOD 10/05/2024 11:37 AM [facility] RBC 4.30(L) 4.50 - 5.50 M/mcL LAB HEMETOLOGY METHOD 10/05/2024 11:37 AM [facility] Hemoglobin 14.3 13.5 - 17.5 g/dL LAB HEMETOLOGY METHOD 10/05/2024 11:37 AM [facility] Hematocrit 42.4 42.0 - 54.0 % LAB HEMETOLOGY METHOD 10/05/2024 11:37 AM [facility] MCV 99.3(H) 79.0 - 98.0 FL LAB HEMETOLOGY METHOD 10/05/2024 11:37 AM [facility] MCH 33.5(H) 27.0 - 32.0 pcg LAB HEMETOLOGY METHOD 10/05/2024 11:37 AM [facility] MCHC 33.7 32.0 - 37.0 g/dL LAB HEMETOLOGY METHOD 10/05/2024 11:37 AM [facility] RDW 13.1 11.0 - 15.0 % LAB HEMETOLOGY METHOD 10/05/2024 11:37 AM [facility] Platelets 322 130 - 400 K/mcL LAB HEMETOLOGY METHOD 10/05/2024 11:37 AM [facility] MPV 10.9 7.0 - 11.0 FL LAB HEMETOLOGY METHOD 10/05/2024 11:37 AM [facility] NRBC 0.0 <1.0 % LAB HEMETOLOGY METHOD 10/05/2024 11:37 AM [facility] NRBC Absolute 0.00 <0.10 K/mcL LAB HEMETOLOGY METHOD 10/05/2024 11:37 AM [facility] Neutrophils Relative 72.7 % LAB HEMETOLOGY METHOD 10/05/2024 11:37 AM [facility] Lymphocytes Relative 11.5 % LAB HEMETOLOGY METHOD 10/05/2024 11:37 AM [facility] Monocytes Relative 9.5 % LAB HEMETOLOGY METHOD 10/05/2024 11:37 AM [facility] Eosinophils Relative 4.7 % LAB HEMETOLOGY METHOD 10/05/2024 11:37 AM [facility] Basophils Relative 1.1 % LAB HEMETOLOGY METHOD 10/05/2024 11:37 AM [facility] Immature Granulocytes Relative 0.5 % LAB HEMETOLOGY METHOD 10/05/2024 11:37 AM [facility] Neutrophils Absolute 7.28(H) 1.50 - 7.00 K/mcL LAB HEMETOLOGY METHOD 10/05/2024 11:37 AM [facility] Lymphocytes Absolute 1.15 1.00 - 5.00 K/mcL LAB HEMETOLOGY METHOD 10/05/2024 11:37 AM [facility] Monocytes Absolute 0.95 0.20 - 1.00 K/mcL LAB HEMETOLOGY METHOD 10/05/2024 11:37 AM [facility] Eosinophils Absolute 0.47 0.00 - 0.50 K/mcL LAB HEMETOLOGY METHOD 10/05/2024 11:37 AM [facility] Basophils Absolute 0.11 0.00 - 0.20 K/mcL LAB HEMETOLOGY METHOD 10/05/2024 11:37 AM [facility] Immature Granulocytes Absolute 0.05(H) 0.00 - 0.03 K/mcL LAB HEMETOLOGY METHOD 10/05/2024 11:37 AM EST [facility] Blood Venous blood specimen / Unknown Venipuncture / Unknown 10/05/2024 5:24 AM EST 10/05/2024 10:54 AM EST Sara Blanc MD LAB BLOOD ORDERABLES Final Res ult [facility] [address] [place] [address], [place] [phone] * Magnesium (10/05/2024 5:24 AM EST) Magnesium 2.1 1.9 - 2.6 mg/dL LAB CHEMISTRY METHOD 10/05/2024 12:10 PM [facility] Blood Venous blood specimen / Unknown Venipuncture / Unknown 10/05/2024 5:24 AM EST 10/05/2024 10:54 AM EST Sara Blanc MD LAB BLOOD ORDERABLES Final Res ult [facility] [address] [place] [address], [place] [phone] * (ABNORMAL) Comprehensive metabolic panel (10/05/2024 5:24 AM EST) Sodium 139 133 - 145 mmol/L LAB CHEMISTRY METHOD 10/05/2024 12:16 PM [facility] Potassium 4.1 3.5 - 5.5 mmol/L LAB CHEMISTRY METHOD 10/05/2024 12:16 PM [facility] Chloride 103 96 - 110 mmol/L LAB CHEMISTRY METHOD 10/05/2024 12:16 PM [facility] CO2 26 21 - 32 mmol/L LAB CHEMISTRY METHOD 10/05/2024 12:16 PM [facility] Anion Gap 10 3 - 11 LAB CHEMISTRY METHOD 10/05/2024 12:16 PM [facility] Glucose 82 70 - 100 mg/dL LAB CHEMISTRY METHOD 10/05/2024 12:16 PM [facility] BUN 17 5 - 25 mg/dL LAB CHEMISTRY METHOD 10/05/2024 12:16 PM [facility] Creatinine 0.97 0.70 - 1.30 mg/dL LAB CHEMISTRY METHOD 10/05/2024 12:16 PM [facility] eGFR 83 >=60 mL/min/1. 73m2 LAB CHEMISTRY METHOD 10/05/2024 12:16 PM [facility] Comment:Calculation based on the??Chronic Kidney Disease Epidemiology Collaboration (CKD-EPI) equation refit??without adjustment for race. BUN/Creatinine Ratio 17.5 LAB CHEMISTRY METHOD 10/05/2024 12:16 PM [facility] Calcium 9.1 8.5 - 10.5 mg/dL LAB CHEMISTRY METHOD 10/05/2024 12:16 PM [facility] AST (SGOT) 25 10 - 42 unit/L LAB CHEMISTRY METHOD 10/05/2024 12:16 PM [facility] ALT (SGPT) 35 10 - 60 unit/L LAB CHEMISTRY METHOD 10/05/2024 12:16 PM [facility] Alkaline Phosphatase 83 42 - 121 unit/L LAB CHEMISTRY METHOD 10/05/2024 12:16 PM [facility] Total Protein 6.8 6.0 - 8.0 g/dL LAB CHEMISTRY METHOD 10/05/2024 12:16 PM [facility] Albumin 3.3 3.2 - 5.0 g/dL LAB CHEMISTRY METHOD 10/05/2024 12:16 PM [facility] Total Bilirubin 1.5(H) 0.0 - 1.4 mg/dL LAB CHEMISTRY METHOD 10/05/2024 12:16 PM [facility] Blood Venous blood specimen / Unknown Venipuncture / Unknown 10/05/2024 5:24 AM EST 10/05/2024 10:54 AM EST us Sara Blanc MD LAB BLOOD ORDERABLES Final Res ult Performing Organization Address City/State/[facility] Co de Phone Number [facility] ([facility]) [facility] [address] [place] [address], documented in this encounter Visit Diagnoses Diagnosis Encounter for other general examination documented in this encounter Care Teams Director Microbiology Relationship Specialty Start Date End Date Fausto Pat NP [address] [place], [place] PCP - General Family Medicine 10/17/24 documented as of this encounter
== END 2024-10-25 13:40 | disposition home or self-care (01) ==
LOC: HO.HOS 13:00
PROVIDERS: PCP Nurse Practitioner Family; Visit Provider Physician Assistant
DX: S76.111A Strain of right quadriceps muscle, fascia and tendon, initial encounter (principal)
CPT/HCPCS: 99024

== ENCOUNTER → 2024-10-25 12:59 | Outpatient (BNVA) | payer MEDICARE, SELFPAY | PROVIDERS: PCP Nurse Practitioner Family; Visit Provider Physician Assistant | DX: S76.111D Strain of right quadriceps muscle, fascia and tendon, subsequent encounter (principal) | CPT/HCPCS: 99212 ==

== ENCOUNTER 2024-11-02 12:59 | Inpatient (IN) | payer MEDICARE, SELFPAY ==
--- NOTE | 2024-11-02 13:04 | ED_ITS ---
HPI - General Adult General Chief complaint: General Medical Stated complaint: r knee pain surgery 10/13 Time Seen by Provider: 11/02/24 16:33 Source: patient and RN notes reviewed Mode of arrival: ambulatory Limitations: no limitations History of Present Illness ED Provider: Tammy Chambers PA-C HPI narrative: This is a 69-year-old male, with a past medical history of hypertension and hyperlipidemia, who presents emergency department with concerns for increased redness, swelling, and discharge from his right knee incision site. Patient reports that approximately 3 days ago he started to noticed increased swelling and redness to his knee. This morning, he noticed drainage coming from his knee. He denies any increased pain. No fevers or chills. No body pain. No chest pain or shortness of breath. No new injury. Patient originally had a right quadriceps tendon repair on 09/29/2024, unfortunately he then sustained a fall on 09/30/2024 causing rerupture of the right quad tendon. He then was brought back into the operating room on October 05, 2024 for quad tendon repair. He then had ken removed on October 25, 2024 in the orthopedic office, no concerns for infection at that time. No other complaints or concerns at this time. MD complaint: Leg swelling, pain Onset (ago): day(s) Location: lower extremity Severity: moderate Quality: aching Pain Consistency: constant Relieving factors: none Exacerbating factors: none Associated symptoms: denies other symptoms Treatments prior to arrival: none Related Data Home Medications ?Medication ?Instructions ?Recorded ?Confirmed multivitamin 1 tab PO DAILY 03/09/23 11/02/24 omega 9-ocn-zlt-fish oil 1,000 mg 1 cap PO DAILY 03/09/23 11/02/24 (120 mg-180 mg) capsule (Fish Oil) atorvastatin 20 mg tablet 20 mg PO BEDTIME 10/13/24 11/02/24 enoxaparin 40 mg/0.4 mL 40 mg subcut DAILY 11/02/24 11/02/24 subcutaneous syringe glucosamine sulfate 500 mg tablet 500 mg PO DAILY 11/02/24 11/02/24 (Glucosamine) Previous Rx's ?Medication ?Instructions ?Recorded allopurinol 100 mg tablet 100 mg PO DAILY 90 days #90 tabs 06/02/24 hydrochlorothiazide 12.5 mg tablet 12.5 mg PO DAILY #90 tabs 06/02/24 docusate sodium 100 mg capsule 100 mg PO BID 30 days #60 caps 10/16/24 Allergies Allergy/AdvReac Type Severity Reaction Status Date / Time No Known Allergies Allergy Verified 11/02/24 13:06 [No Known Allergies*] Review of Systems 2 Review of Systems: Yes all other systems are reviewed and are negative Constitutional: Constitutional: Reports as per [facility] Past Medical History Attestation statement: The following information was validated with the patient. Medical History Rupture of right quadriceps tendon Gout Paronychia of great toe Elevated TSH Obesity Screening PSA (prostate specific antigen) HTN (hypertension) Varicose veins of both lower extremities Surgical History History of amputation of left great toe (07/01/22) Hx of hand surgery Status post debridement (06/16/22) Hx of vascular surgery Hx of colonoscopy Family History Family History Father HTN (hypertension) Mother Parkinsons disease Social History Social History Household Members: Family Housing: House Are you a primary medicare sales representative to a significant other at home: No Do you presently have visiting nurse or other home services: No Alcohol intake: current Alcohol intake frequency: holidays/special occasions only Comment: falling start, wrist band, socks in place Patient Tobacco Use Status: Never used Tobacco Smoked in Last 30 Days: No e-Cigarette/Vaping Use: Never Used Second Hand Smoke Exposure: No Use of substances other than those prescribed or required for medical reasons: No Advance Directives: Yes Advance Directives on File: Yes Advance Directives Date on File: 10/13/23 Nutrition Risks: No Nutritional Risk service: No Current occupational status: retired Cognitive needs: No Hearing needs: No Vision needs: No Physical Exam ED Vital Signs: Vital Signs - 24 hr 11/02/24 13:06 Temperature 97.1 F Pulse Rate 79 Respiratory Rate 16 Blood Pressure 132/64 Pulse Oximetry 93 Oxygen Delivery Method Room Air BMI result Body Mass Index 33.7 Const General: cooperative, comfortable and no acute distress Orientation/consciousness: patient oriented x3 Limitations: no limitations HENMO Head: Yes normal to inspection, Yes normocephalic and Yes atraumatic Ears: hearing grossly normal bilaterally General nose exam: Normal external nose present Face and sinus: Yes normal facial exam Mouth: Normal oral and palatal mucosa present, oropharynx normal and moist mucous membranes Throat: Yes posterior oropharynx normal Eyes General: appearance normal, both eyes and all related structures Eyelids: Yes eyelids normal Conjunctivae: conjunctivae normal Sclerae: sclerae normal Pupils: Equal, round and reactive pupils present EOM: EOMs intact bilaterally Neck Neck: Yes normal visual inspection, Yes full ROM and Yes no lymphadenopathy Lymphatic: no lymphadenopathy noted Chest Chest palpation & inspection: normal inspection of the chest Resp Effort & Inspection: normal respiratory effort and able to speak in complete sentences Auscultation: clear to auscultation bilaterally, no crackles, no rales, no rhonchi and no wheezes Cardio Rate: regular rate Rhythm: regular rhythm Heart sounds: S1 normal heart sound present and S2 normal heart sound present GI Inspection: Yes normal to inspection Skin General skin exam: no rashes or lesions noted Trauma: no lacerations or abrasions Wounds: no wounds Neuro General: patient oriented x3 and moves all extremities Cranial nerves: Yes Equal, round and reactive pupils present Extrem Other: Right knee with surgical incision noted, with Steri-Strips in place, with yellow purulent drainage expressed, surrounding erythema and warmth noted. General: Yes normal to inspection Right upper extremity: normal to inspection Left upper extremity: normal to inspection Left lower extremity: normal to inspection Course Course Course Narrative: This is an RME: Additional HPI, ROS, PE not included below will be deferred to primary provider. RME assessment and note performed by: Tammy Chambers PA-C This is a [id number]-male who presents to the ER with complaints of right knee pain. He had a rupture of his right quads tendon on 10/[address] Celis. He noticed this AM that he had increased swelling and clear drainage from his right knee. He is not currently on antibiotics. No fevers or chills. Currently on lovenox injection. Unable to visualize knee in triage. Plan: We will start with basic labs, +/- imaging Medications Administered Generic Name Dose Route Start Last Admin Trade Name Freq PRN Reason Stop Dose Admin Lactated Ringer's 1,000 mls @ 100 mls/hr 11/02/24 16:30 11/02/24 19:41 Lr IVCONT 100 mls/hr .Q10H BRI Administration Sodium Chloride 1,000 mls @ 250 mls/hr 11/02/24 16:45 11/02/24 17:20 Ns IVCONT 11/02/24 20:44 250 mls/hr .Q4H BRI Administration Discontinued Medications Generic Name Dose Route Start Last Admin Trade Name Sharla PRN Reason Stop Dose Admin Vancomycin HCl 2,000 mg in 500 mls @ 250 mls/hr 11/02/24 16:36 11/02/24 19:32 Vancomycin/Ns IV 11/02/24 18:35 Infused ONCE ONE Infusion Medical Decision Making Medical Decision Making [facility] Narrative: This is a 69-year-old male who presents emergency department for evaluation of right knee redness, swelling. Patient had a recent quad tendon repair performed with [facility] originally on October 13. On arrival, vital signs within normal limits. He is speaking full sentences under no acute distress. Right knee with erythema, warmth, drainage concerning for postoperative surgical site infection. I discussed case with orthopedic PA, Enio Collins, who saw patient with Dr. Ceils. They recommend admitting to the orthopedic service for IV antibiotics and further evaluation and treatment. Advised to keep NPO at midnight. Wound was dressed with nonstick dressing. He was no current pain. Labs were performed, he has no leukocytosis, he does have a normocytic anemia with an H&H of 12.3/33.4. Chemistry with no significant electrolyte derangement. Hyperglycemic at 1:50 a.m., inflammatory markers elevated with a CRP at 10.48, and ESR at 97. Patient agreeable for admission. Transfer of care initiated to the orthopedic service. Differential Diagnosis Differential Diagnoses: The differential diagnosis associated with the presentation includes Cellulitis, osteomyelitis, wound infection, postoperative infection, abscess Admission/Observation Consideration of admission/observation: Escalation of care including admission/observation considered Lab Data [facility] Lab Attestation statement: I reviewed the patient's lab results. See [facility] 11/02/24 13:24 11/02/24 13:24 Labs: Lab Results 11/02/24 Range/Units 13:24 WBC 8.0 (4.8-10.8) X10*3/uL RBC 3.74 L (4.60-5.80) X10*6/uL Hgb 12.3 L (14.0-18.0) g/dl Hct 33.4 L (42.0-52.0) % MCV 89.3 (80.0-98.0) fL MCH 32.9 (27.0-33.0) pg MCHC 36.8 H (31.0-36.0) g/dl RDW 12.3 (11.0-16.0) % Plt Count 443 H D (160-400) X10*3/uL MPV 9.5 (9.4-12.4) fL Immature Gran % (Auto) 0.2 (0.0-0.4) % Neut % (Auto) 70.9 (45-73) % Lymph % (Auto) 15.3 L (20-40) % [place] % (Auto) 10.5 (2-11) % Eos % (Auto) 2.2 (0-4) % Baso % (Auto) 0.9 (0-2) % Lymph # (Auto) 1.2 (1.2-4.9) X10*3/uL [place] # (Auto) 0.8 (0.1-1.2) X10*3/uL Eos # (Auto) 0.2 (0.0-0.4) X10*3/uL Baso # (Auto) 0.1 (0.0-0.2) X10*3/uL Abs Immat Gran (auto) 0.02 (0.00-0.03) X10*3/uL Absolute Neuts (auto) 5.7 (2.0-8.3) x10*3/uL Absolute Nucleated RBC 0.000 (0.0-0.012) X10*3/uL Nucleated RBC % (auto) 0.0 (0.0-0.2) /100WBC ESR 97 H (0-15) MM/HR Sodium 137 (135-145) mmol/L Potassium 3.3 (3.3-5.1) mmol/L Chloride 106 (96-108) mmol/L Carbon Dioxide 22 (22-29) mmol/L Anion Gap 12 (12-20) BUN 19 H (9-16) mg/dL Creatinine 0.89 (0.5-1.4) mg/dL Estim Creat Clear Calc 93.1 Estimated GFR > 60 Random Glucose 150 H (60-115) mg/dL Calcium 9.4 D (8.4-10.2) mg/dL Total Bilirubin 0.7 (0.0-1.0) mg/dL Direct Bilirubin 0.3 (0.0-0.5) mg/dL AST 28 (5-37) U/L ALT 31 (0-40) U/L Alkaline Phosphatase 120 H (39-117) U/L C-Reactive Protein 10.48 H (< or = 0.50) mg/dL Total Protein 7.9 (6.5-8.0) g/dL Albumin 3.4 L (3.5-5.0) g/dL Tests considered The following testing was considered but not selected: Considered imaging however deferred this to orthopedic management. Discharge Plan Discharge Clinical Impression: Surgical site infection, Cellulitis
[2024-11-02 13:06] VITALS: BP 132/64; PULSE 79; RESP 16; TEMP 36.2; O2SAT 93; BMI 33.7
[2024-11-02 13:34] LABS: MANUAL DIFF FLAG NO
[2024-11-02 13:37] LABS: Basophils Absolute Auto 0.1 X10*3/uL (0.0-0.2); Basophils Percent Auto 0.9 % (0-2); Eosinophils Absolute Auto 0.2 X10*3/uL (0.0-0.4); Eosinophils Percent Auto 2.2 % (0-4); Hematocrit 33.4 % (42.0-52.0); Hemoglobin 12.3 g/dl (14.0-18.0); Imm Gran Abs Auto 0.02 X10*3/uL (0.00-0.03); Imm Gran Pct Auto 0.2 % (0.0-0.4); Lymphocytes Absolute Auto 1.2 X10*3/uL (1.2-4.9); Lymphocytes Percent Auto 15.3 % (20-40); Mean Corpuscular HGB Conc 36.8 g/dl (31.0-36.0); Mean Corpuscular Hemoglobin 32.9 pg (27.0-33.0); Mean Corpuscular Volume 89.3 fL (80.0-98.0); Mean Platelet Volume 9.5 fL (9.4-12.4); Monocytes Absolute Auto 0.8 X10*3/uL (0.1-1.2); Monocytes Percent Auto 10.5 % (2-11); Neutrophils Absolute Auto 5.7 x10*3/uL (2.0-8.3); Neutrophils Percent Auto 70.9 % (45-73); Platelet Count 443 X10*3/uL (160-400); Red Blood Count 3.74 X10*6/uL (4.60-5.80); Red Cell Distribution Width 12.3 % (11.0-16.0)
[2024-11-02 13:52] LABS: Alanine Aminotransferase 31 U/L (0-40); Albumin Level 3.4 g/dL (3.5-5.0); Alkaline Phosphatase 120 U/L (39-117); Anion Gap 12 (12-20); Aspartate Amino Transferase 28 U/L (5-37); Bilirubin Direct 0.3 mg/dL (0.0-0.5); Bilirubin Total 0.7 mg/dL (0.0-1.0); Blood Urea Nitrogen 19 mg/dL (9-16); C Reactive Protein 10.48 mg/dL (< or = 0.50); Calcium 9.4 mg/dL (8.4-10.2); Carbon Dioxide 22 mmol/L (22-29); Chloride 106 mmol/L (96-108); Creatinine Clr Calc Pharmacy 93.1; Estimated Glomerular Filt Rate > 60; Glucose Random 150 mg/dL (60-115); Potassium 3.3 mmol/L (3.3-5.1); Sodium 137 mmol/L (135-145); Total Protein 7.9 g/dL (6.5-8.0)
[2024-11-02 14:24] LABS: Erythrocyte Sedimentation Rate 97 MM/HR (0-15)
--- NOTE | 2024-11-02 16:50 | P.HPOP_ITS ---
History of Present Illness History of Present Illness Date of Service: 11/02/24 Chief complaint: Infx s/p R quad tendon repair Narrative: Jorge Guardado is a 69 year old male who presents to the emergency department for redness, swelling, discharge of the incision site on the right knee status post right quad tendon repair DOS 10/13/2024 The patient reports that he is in no pain, but then he noticed the redness and swelling beginning approximately 3 days ago and gradually worsening over time, until this morning when he awoke to clear discharge from the incision site Patient reports that he was never experiencing any pain, and continues to experience no pain in the right knee Patient did have ken removed on 10/25/2024 in our office, states there were no concerns for infection at that time Patient reports that discharge has been active since this morning Patient is able to ambulate with minimal difficulty Review of Systems 2 Review of Systems: Yes all other systems are reviewed and are negative PMFSH Past Medical History Medical History (Updated 11/02/24 @ 17:14 by RUPERTO Rosa) Rupture of right quadriceps tendon Gout Paronychia of great toe Elevated TSH Obesity Screening PSA (prostate specific antigen) HTN (hypertension) Varicose veins of both lower extremities Family History Family History Father HTN (hypertension) Mother Parkinsons disease Surgical History Surgical History History of amputation of left great toe (07/01/22) Hx of hand surgery Status post debridement (06/16/22) Hx of vascular surgery Hx of colonoscopy Social History Social History Household Members: Family Housing: House Are you a primary before and after school daycare worker to a significant other at home: No Do you presently have visiting nurse or other home services: No Alcohol intake: current Alcohol intake frequency: a few times a month Comment: falling start, wrist band, socks in place Patient Tobacco Use Status: Never used Tobacco e-Cigarette/Vaping Use: Never Used Second Hand Smoke Exposure: No Advance Directives: Yes Advance Directives on File: Yes Advance Directives Date on File: 10/13/23 service: No Current occupational status: retired Cognitive needs: No Hearing needs: No Vision needs: No Meds Allergies Allergy/AdvReac Type Severity Reaction Status Date / Time No Known Allergies Allergy Verified 11/02/24 13:06 [No Known Allergies*] Active Medications: Current Medications Acetaminophen (Acetaminophen 325 Mg Tablet) 650 mg PO Q6H PRN PRN Reason: Pain, Mild 1-3,fever,headache Hydrochlorothiazide (Hydrochlorothiazide 12.5 Mg Tablet) 12.5 mg PO DAILY BRI; Protocol Lactated Ringer's (Lr) 1,000 mls @ 100 mls/hr IVCONT .Q10H BRI Vancomycin HCl (Vancomycin/Ns) 2,000 mg in 500 mls @ 250 mls/hr IV ONCE ONE Stop: 11/02/24 18:35 Sodium Chloride (Ns) 1,000 mls @ 250 mls/hr IVCONT .Q4H BRI Stop: 11/02/24 20:44 Oxycodone HCl (Oxycodone Hcl Immed Release 5 Mg Tablet) 5 mg PO Q4H PRN PRN Reason: Pain, Moderate(Pain Scale 4-6) Sodium Chloride (0.9 % Sodium Chloride Flush 3 Ml Syringe) 3 ml IVFLUSH QSHIFT [facility] Home Medications ?Medication ?Instructions ?Recorded ?Confirmed ?Last Taken ?Type Glucosamine 1 tab PO DAILY 03/09/23 10/13/24 10/12/24 History multivitamin 1 tab PO DAILY 03/09/23 10/13/24 10/12/24 History omega 5-lrt-xnu-fish oil 1,000 mg 1 cap PO DAILY 03/09/23 10/13/24 10/12/24 History (120 mg-180 mg) capsule (Fish Oil) atorvastatin 20 mg tablet 20 mg PO BEDTIME 10/13/24 10/13/24 Unknown History Physical Exam 2 Vital Signs: Vital Signs: Last Vital Signs Temp 97.1 F 11/02/24 13:06 Pulse 79 11/02/24 13:06 Resp 16 11/02/24 13:06 BP 132/64 11/02/24 13:06 Pulse Ox 93 11/02/24 13:06 O2 Del Method Room Air 11/02/24 13:06 BMI result Body Mass Index 33.7 Extrem: Other: Patient's right knee significantly erythematous and edematous to inspection No ecchymosis noted Incision site noted on the anterior aspect of the right knee with purulent drainage Patient reports no tenderness to palpation of the right knee Patient does hold the right knee and extension due to history of quad tendon repair Distal sensation intact Capillary refill brisk Results Labs 11/02/24 13:24 11/02/24 13:24 Labs: Abnormal lab results 11/02/24 Range/Units 13:24 RBC 3.74 L (4.60-5.80) X10*6/uL Hgb 12.3 L (14.0-18.0) g/dl Hct 33.4 L (42.0-52.0) % MCHC 36.8 H (31.0-36.0) g/dl Plt Count 443 H D (160-400) X10*3/uL Lymph % (Auto) 15.3 L (20-40) % ESR 97 H (0-15) MM/HR BUN 19 H (9-16) mg/dL Random Glucose 150 H (60-115) mg/dL Alkaline Phosphatase 120 H (39-117) U/L C-Reactive Protein 10.48 H (< or = 0.50) mg/dL Albumin 3.4 L (3.5-5.0) g/dL H & H 11/02/24 Range/Units 13:24 Hgb 12.3 L (14.0-18.0) g/dl Hct 33.4 L (42.0-52.0) % All other labs normal. Assessment and Plan (1) Surgical site infection: Status: Acute (2) Rupture of right quadriceps tendon: Status: Acute Plan 1. Infection of surgical site of right knee status post quadriceps tendon repair DOS 10/13/2024 Patient was seen and discussed with Dr. Celis, and a collaborative treatment plan was formed: At this time, patient was to be admitted to the hospital on orthopedic service for IV antibiotics and further evaluation and treatment Patient should receive initial dose of IV vanco in ED prior to admission IV vancomycin b.i.d. NPO at midnight pending evaluation tomorrow for potential surgery P.r.n. Tylenol and oxycodone for pain management Strict extension with ACL brace locked in extension due to history of right quad tendon repair on 10/13/2024 WBAT in brace Dressing changes as needed due to saturation Quality Stroke Does the patient have a stroke diagnosis?: No VTE Prior VTE?: No VTE Risk Level:: Surgical - moderate VTE Device Contraindication: N/A - Device Ordered VTE Drug Contraindication: Treatment Not Indicated Procedures Date of Service Date of Service: 11/02/24
[2024-11-02] MEDS: 0.9 % Sodium Chloride 1,000 ML 250 ML IVCONT (17:20)
[2024-11-02] MEDS: vancomycin/NS 2,000 MG/500 ML PLAST..BAG 250 MG IV (17:20)
[2024-11-02 17:29] VITALS: BP 154/75; PULSE 56; RESP 16; TEMP 36.8; O2SAT 100
[2024-11-02 17:44] VITALS: PULSE 64; RESP 16; O2SAT 99
--- NOTE | 2024-11-02 17:44 | PHA.PROG ---
Admission Date/Time: November 02, 2024 16:35 Indication: Other, infection in knee po tendon repair Weight in k.7 kg Adjusted body weight in Kg: Fisher body weight in Kg: Obesity Dosing Indication % IBW: BMI 33.8 Serum Creatinine - Last 168 Hours 11/02/24 13:24 Creatinine 0.89 Estimated CrCl and GFR - Last 168 Hours 11/02/24 13:24 Estim Creat Clear Calc 93.1 Estimated GFR > 60 Vancomycin Loading Dose: 2000mg X1 Current Vancomycin Dosing Regimen: 1250mg Q12H Vancomycin Monitoring using AUC goal of 400 - 600 range with trough as surrogate marker: 566 Date and Time for next Vancomycin Level to be drawn: 11/03 @1600 Pharmacist Comments on Vancomycin Plan: Patient's renal function appears stable so starting off at 1250mg Q12H although predicted trough in a bit on higher end at 18.7 but considering pt's BMI is 33.8, giving this dose to get patient into range and then readjusting based on SCr lab daily and what trough will be after 2 doses. Vancomycin dosing will take advantage of [employer] as a clinical decision support tool that uses Bayesian modeling to calculate individual patient's pharmacokinetic parameters and forecast the patient's drug concentration time course with the target goal AUC 24 range of 400 - 600 mg/L/hr.
--- NOTE | 2024-11-02 18:29 | PHA.MEDREC ---
Addendum entered by Barrett Phipps 11/02/24 18:34: reviewed Original Note: Pharmacy Consult ? Medication Reconciliation Pharmacy has completed the medication reconciliation. Spoke to patient to confirm med list. patient states he is not taking Acetaminophen 650 mg, Celecoxib 200 mg, Docusate sodium 100 mg, and Oxycodone 5 mg. patient confirmed Enoxaparin 40 mg daily.
[2024-11-02] MEDS: Lactated Ringers 1,000 ML 100 ML IVCONT (19:41)
--- NOTE | 2024-11-02 19:44 | PC.NURSE ---
This RN assumed care @ 1900. Patient a&ox4, no signs of distress Pt denies pain at this time LR not running during prior shift. LR started per oct. Plan of care ongoing.
[2024-11-02 20:53] VITALS: BP 135/70; PULSE 57; RESP 16; TEMP 36.3; O2SAT 98
[2024-11-03] VITALS (8 sets, daily range): BP systolic 112–127; BP diastolic 47–78; PULSE 53–67; RESP 16–18; TEMP 36–36.7; O2SAT 94–99; BMI 33.7
--- NOTE | 2024-11-03 | ECG_ITS ---
Test Reason : medical clearance Blood Pressure : */* mmHG Vent. Rate : 57 BPM Atrial Rate : 57 BPM P-R Int : 190 ms QRS Dur : 92 ms QT Int : 424 ms P-R-T Axes : 42 -41 44 degrees QTcB Int : 412 ms Sinus bradycardia with marked sinus arrhythmia Left axis deviation Abnormal ECG When compared with ECG of 18-Dec-2016 15:33, QT has shortened Referred By: Sara Membreno Electronically Signed By: Regino Frias
[2024-11-03] MEDS: Lactated Ringers 1,000 ML 100 ML IVCONT ×2 (05:32→16:14)
--- NOTE | 2024-11-03 05:38 | PC.NURSE ---
pt resting comfortably throughout the night, no apparent distress. call kell w/in reach, pt aware he is NPO. denies pain. using urinal at bedside
[2024-11-03 06:38] LABS: MANUAL DIFF FLAG NO
[2024-11-03 06:52] LABS: Anion Gap 10 (12-20); Blood Urea Nitrogen 12 mg/dL (9-16); Calcium 8.9 mg/dL (8.4-10.2); Carbon Dioxide 25 mmol/L (22-29); Chloride 111 mmol/L (96-108); Creatinine Clr Calc Pharmacy 113.5; Estimated Glomerular Filt Rate > 60; Glucose Fasting 109 mg/dL (60-99); Potassium 3.7 mmol/L (3.3-5.1); Sodium 142 mmol/L (135-145)
[2024-11-03 06:59] LABS: Basophils Absolute Auto 0.1 X10*3/uL (0.0-0.2); Basophils Percent Auto 1.2 % (0-2); Eosinophils Absolute Auto 0.4 X10*3/uL (0.0-0.4); Eosinophils Percent Auto 6.1 % (0-4); Hematocrit 33.6 % (42.0-52.0); Imm Gran Abs Auto 0.02 X10*3/uL (0.00-0.03); Imm Gran Pct Auto 0.3 % (0.0-0.4); Lymphocytes Percent Auto 17.6 % (20-40); Mean Corpuscular HGB Conc 35.7 g/dl (31.0-36.0); Mean Corpuscular Hemoglobin 32.3 pg (27.0-33.0); Mean Corpuscular Volume 90.6 fL (80.0-98.0); Mean Platelet Volume 9.5 fL (9.4-12.4); Monocytes Absolute Auto 0.9 X10*3/uL (0.1-1.2); Monocytes Percent Auto 14.7 % (2-11); Neutrophils Absolute Auto 3.5 x10*3/uL (2.0-8.3); Neutrophils Percent Auto 60.1 % (45-73); Platelet Count 393 X10*3/uL (160-400); Red Blood Count 3.71 X10*6/uL (4.60-5.80); Red Cell Distribution Width 12.5 % (11.0-16.0); White Blood Count 5.8 X10*3/uL (4.8-10.8)
--- NOTE | 2024-11-03 07:37 | P.CONHOSP_ITS ---
History of Present Illness Data of Consult Service Date: 11/03/24 Requesting physician: Enio Collins Primary Care Provider: BENITO Cortez- HPI Reason for consult: Medical clearance, surgery today possible Patient is a 69-year-old male, A/O X4, with past medical history of hypertension, hyperlipidemia, left great toe amputation status post trauma, gout, subclinical hypothyroidism, morbid obesity with a BMI of 33, varicosities, ETOH use occasionally is being seen today for medical clearance after being admitted for cellulitis/infection right knee status post right quadriceps tendon re-repair 10/13/2024. Initial repair occurred on 09/29 and rerupture occurred on 09/30/24. Patient incurred a fall initially that resulted in original rupture the involved tendon. Patient states he was discharged home where he lives alone and recovered. Anna were removed from the site 10/25/2024 in the orthopedic office. Now 3 days prior, patient started to note clear drainage from affected knee that changed to a pink, bloody drainage. Pt denies fever, chills, sweats, night sweats or pain in affected R knee. Pt was able to bear weight and walk. Pt presented to the ED and was admitted by orthopedics. Plan is to take pt to surgery today, 11/03/24. Pt is not exhibiting evidence of sepsis but has elevated ESR and CRP. Pt currently has no leukocytosis, bandemia. BC are pending X2 and no wound cultures collected from R knee (unclear if this was even possible). Pt is on vancomycin per ortho wearing extension brace, currently bed bound. Pt found to have a first degree AVB via ECG noting presentation of bradycardia, HR 54 regular. orthopedics notified. Pt is not currently on AVN blocking agents and does not take them at home. Added MG, checking thyroid function noting subclinical picture back in March of 2024. Review of Systems 2 Review of Systems: Pt denies any chest pain, shortness of breath at rest or with exertion, right lower extremity pain, numbness, insomnia, nausea, vomiting, diarrhea, constipation. Patient also denies any headaches, visual changes or limitations. Patient has history of gout but no recent flares. Patient reports history of stress test via treadmill approximately 8 years ago and stated he passed. Patient offers that he sees his primary care physician at least 1-2 times per year. Pt staes NKDA, NKFA. Pt denies hx of cancer, auto-immune disorders, DM. [facility] Medical History Obesity HTN (hypertension) Rupture of right quadriceps tendon Gout Paronychia of great toe Elevated TSH Screening PSA (prostate specific antigen) Varicose veins of both lower extremities Functional capacity: independent ambulation (normally without current R knee issue, pt is not permitted to walk and is wearing extension brace ) Family History Father HTN (hypertension) Mother Parkinsons disease Pertinent family history: Mother and Father both 87 when they passed Surgical History History of amputation of left great toe (07/01/22) Hx of hand surgery Status post debridement (06/16/22) Hx of vascular surgery Hx of colonoscopy Social History Household Members: None Housing: House Are you a primary critical care specialist to a significant other at home: No Do you presently have visiting nurse or other home services: No Alcohol intake: current Alcohol intake frequency: holidays/special occasions only Comment: COUNTS CORRECT Patient Tobacco Use Status: Never used Tobacco e-Cigarette/Vaping Use: Never Used Second Hand Smoke Exposure: No Advance Directives Date on File: 10/13/23 service: No Current occupational status: retired Cognitive needs: No Hearing needs: No Vision needs: No Ebola Risk: Travel/Contact With Anyone From Affected Area/s: No Has Patient Experienced Ebola Symptoms: No Meds Allergies Allergy/AdvReac Type Severity Reaction Status Date / Time No Known Allergies Allergy Verified 11/03/24 13:46 [No Known Allergies*] Active Medications: Current Medications Acetaminophen (Acetaminophen 325 Mg Tablet) 650 mg PO Q6H PRN PRN Reason: Pain, Mild 1-3,fever,headache Hydrochlorothiazide (Hydrochlorothiazide 12.5 Mg Tablet) 12.5 mg PO DAILY [facility]; Protocol Lactated Ringer's (Lr) 1,000 mls @ 100 mls/hr IVCONT .Q10H [facility] Last Admin: 11/03/24 05:32 Dose: 100 mls/hr Vancomycin HCl 1,250 mg/ (Sodium Chloride) 250 mls @ 166.667 mls/hr IV Q12H [facility] Oxycodone HCl (Oxycodone Hcl Immed Release 5 Mg Tablet) 5 mg PO Q4H PRN PRN Reason: Pain, Moderate(Pain Scale 4-6) Pharmacy Consult (Consult Rx Vancomycin Dosing) 1 each MISCELLANE DAILY PRN PRN Reason: Consult order Sodium Chloride (0.9 % Sodium Chloride Flush 3 Ml Syringe) 3 ml IVFLUSH QSHIFT [facility] Last Admin: 11/03/24 00:43 Dose: Not Given Home Medications ?Medication ?Instructions ?Recorded ?Confirmed ?Last Taken ?Type multivitamin 1 tab PO DAILY 03/09/23 11/02/24 11/02/24 History omega 0-dik-cpg-fish oil 1,000 mg 1 cap PO DAILY 03/09/23 11/02/24 11/02/24 History (120 mg-180 mg) capsule (Fish Oil) atorvastatin 20 mg tablet 20 mg PO BEDTIME 10/13/24 11/02/24 11/01/24 History enoxaparin 40 mg/0.4 mL 40 mg subcut DAILY 11/02/24 11/02/24 11/02/24 History subcutaneous syringe glucosamine sulfate 500 mg tablet 500 mg PO DAILY 11/02/24 11/02/24 11/02/24 History (Glucosamine) Physical Exam 2 Vital Signs and Narrative: Vital Signs: Last Vital Signs Temp 98.1 F 11/03/24 07:00 Pulse 53 11/03/24 07:00 Resp 16 11/03/24 07:00 BP 123/49 L 11/03/24 07:00 Pulse Ox 98 11/03/24 07:00 O2 Del Method Room Air 11/03/24 07:00 BMI result Body Mass Index 33.7 Alert and orientated X3, able to give good history. Cooperative with care. Neuro: CN II-X11 intact, no deficits, visual acuity intact Sensation intact RLE. EYES: PERRLA, EOM intact. Pt wearing glasses. ENT: hearing intact, no issues with swallowing, uvula midline, lips moist, nares patent no epistaxis. Dentition in fair repair, no current dental issues. Cardiac: S1 S2 RRR, Bradycardic, 54, no murmur, no JVD, Edema noted RLE secondary to cellulitis Pulmonary: lungs clear to auscultation B Abdominal: BS active in all 4 quadrants, no guarding, tenderness, rebounding MSK: strength 5/5 upper and lower LE, unable to assess strength in RLE : no CVA tenderness no bladder distension Extremities: Edema RLE, skin warm to touch, PT and DP pulses palpable +2 B, RLE dressing with drainage present. Extension brace is in place. Pt can wiggle toes on R foot. Psych: mood stable, judgement and insight good Results Labs 11/03/24 06:32 11/03/24 06:32 Labs: Laboratory Results - last 24 hr 11/02/24 11/02/24 11/03/24 13:24 16:52 06:32 MCV 89.3 90.6 MCH 32.9 32.3 MCHC 36.8 H 35.7 RDW 12.3 12.5 Plt Count 443 H D 393 MPV 9.5 9.5 Immature Gran % (Auto) 0.2 0.3 Neut % (Auto) 70.9 60.1 Lymph % (Auto) 15.3 L 17.6 L [place] % (Auto) 10.5 14.7 H Eos % (Auto) 2.2 6.1 H Baso % (Auto) 0.9 1.2 Lymph # (Auto) 1.2 1.0 L [place] # (Auto) 0.8 0.9 Eos # (Auto) 0.2 0.4 Baso # (Auto) 0.1 0.1 Abs Immat Gran (auto) 0.02 0.02 Absolute Neuts (auto) 5.7 3.5 Absolute Nucleated RBC 0.000 0.000 Nucleated RBC % (auto) 0.0 0.0 ESR 97 H Anion Gap 12 10 L Estim Creat Clear Calc 93.1 113.5 Estimated GFR > 60 > 60 Random Glucose 150 H Fasting Glucose 109 H Calcium 9.4 D 8.9 Total Bilirubin 0.7 Direct Bilirubin 0.3 AST 28 ALT 31 Alkaline Phosphatase 120 H C-Reactive Protein 10.48 H Total Protein 7.9 Albumin 3.4 L Blood Type A Positive Antibody Screen NEGATIVE ECG Attestation: I personally reviewed and interpreted this ECG as follows: (Bradycardic, Regular, First degree AVB KS 212 ) Prior ECG tracings: available for review Imaging Radiologist's Impressions: no imaging available for this admission Assessment and Plan (1) Cellulitis: Qualifiers: Laterality: left Site of cellulitis: extremity Site of cellulitis of extremity: lower extremity Qualified Code(s): L03.116 - Cellulitis of left lower limb Status: Acute (2) First degree atrioventricular block by electrocardiogram: Status: Acute (3) Rupture of right quadriceps tendon: Qualifiers: Encounter type: initial encounter Qualified Code(s): S76.111A - Strain of right quadriceps muscle, fascia and tendon, initial encounter Status: Chronic (4) Anemia: Qualifiers: Anemia type: unspecified type Qualified Code(s): D64.9 - Anemia, unspecified Status: Acute (5) HTN (hypertension): Qualifiers: Hypertension type: primary hypertension Qualified Code(s): I10 - Essential (primary) hypertension Status: Acute (6) Gout: Qualifiers: Chronicity: chronic Gout etiology: idiopathic Gout site: toe L aterality: unspecified laterality Presence of tophus: without tophus Qualified Code(s): M1A.0790 - Idiopathic chronic gout, unspecified ankle and foot, without tophus (tophi) Status: Acute (7) Dyslipidemia: Status: Acute (8) Subclinical hypothyroidism: Status: Acute (9) Obesity: Qualifiers: Body mass index: BMI 33.0-33.9 Obesity classification: adult class 1 (BMI 30 - 34.9) Obesity type: due to excess calories Serious obesity comorbidity presence: unspecified whether serious comorbidity present Qualified Code(s): E66.811 - Obesity, class 1; E66.09 - Other obesity due to excess calories; Z68.33 - Body mass index [BMI] 33.0-33.9, adult Status: Acute Plan Cellulitis -plan is for surgery today -Medical clearance has been given after seeing pt today. Orthopedics notified of First degree AVB -Per Dr. Covarrubias, no cardiology consult needed for noted First Degree AVB, Bradycardia 54 BPM, regular -Pt is continuing Vancomycin per ortho, recommend ID consult if needed, BCX2 pending, no wound culture available (unclear if possible to obtain) -No leukocytosis, bandemia First Degree AVB, Bradycardia HR 54 -Pt is not on AVN blocking agents normally. Ortho notified -No evidence of murmur on exam -noted subclinical hypothyroidism noted Mar 2024, rechecking TSH, FT4 -Checking MG -Per Dr. Gamboa, no cardiology consult needed -continue telemetry, ECG prn, avoid AVN blocking agents HX of rupture and rerupture of R quadriceps tendon -per Ortho, possible surgery today, pt is NPO Mild Anemia -H/H .6, no indication to complete iron studies or VB12 studies, stool for occult -Monitor H/H post operatively HTN -BP currently controlled -Pt normally on HCTZ, CA is WNL, can continue HCTZ post operatively if needed Gout HX -No recent flares, continue allopruinol, monitor renal and liver fx Dyslipidemia -pt normally on statin -can continue post operatively -monitor LFTs Subclinical Hypothyroidism -Rechecking TSH and FT4 noting elevated TSH <25 Mar 2025 -Pt is bradycardic, would want to know that thyroid fx is WNL Obesity BMI 33 -Pt counseled on benefits of wt loss overall noting pt will be recovering from surgery -checking A1C for screening purposes, BG levels moderately elevated -consider outpatient endocrine referral if any issues Pt has received medical clearance for surgery today after review with Hospitalist Dr Locke. Orthopedics follow up on the First Degree with Dr. Covarrubias and no cardiology consult required pre-operatively. Total time managing care of this patient today: 40 minutes.
[2024-11-03] MEDS: vancomycin HCL 1,250 MG in 0.9 % Sodium Chloride 250 ML 166.67 MG IV ×2 (08:17→18:33)
--- NOTE | 2024-11-03 08:28 | PC.NURSE ---
Dressing to right knee saturated with serosanguineous drainage. Dressing removed. Incision site with erythema and swelling. Ortho aware of large amount of drainage. EKG obtained and sent to hospitalist
--- NOTE | 2024-11-03 08:34 | PM.PNORT ---
Subjective Subjective Date of Service: 11/03/24 Interval history: Patient resting in bed comfortably Brace intact Dressing is grossly saturated Pain is managed Physical Exam Vital Signs: Vital Signs: Last Vital Signs Temp 98.1 F 11/03/24 07:00 Pulse 53 11/03/24 07:00 Resp 16 11/03/24 07:00 BP 123/49 L 11/03/24 07:00 Pulse Ox 98 11/03/24 07:00 O2 Del Method Room Air 11/03/24 07:00 BMI result Body Mass Index 33.7 Const: General: cooperative, healthy appearing and no acute distress Resp: Effort & Inspection: normal respiratory effort and able to speak in complete sentences Cardio: Rate: regular rate Peripheral pulses: Peripheral pulses 2+ throughout Skin: Lesions: no lesions Rashes: no rashes Extrem: Other: Copious amounts of serosang and purulent discharge with dressing saturated. Brace intact. NVI. Procedures Date of Service Date of Service: 11/03/24 Progress Note: A&P Assessment and plan (1) Rupture of right quadriceps tendon: Status: Acute (2) Surgical site infection: Status: Acute (3) Cellulitis: Status: Acute Plan Remain NPO for likely OR later this afternoon for I&D Dressing to remain c/d/i - Dressing change to be performed by nurse this morning who acknowledged verbal orders. Brace to remain on at all times No flexing of the right knee Can WBAT in extension with the brace on with a walker Time Spent With Patient Time: Total time managing care of this patient today ____ minutes. Quality Stroke Does the patient have a stroke diagnosis?: No VTE Prior VTE?: No VTE Risk Level:: Surgical - moderate VTE Device Contraindication: N/A - Device Ordered VTE Drug Contraindication: Treatment Not Indicated
[2024-11-03 09:04] LABS: Magnesium 1.9 mg/dL (1.6-2.6)
[2024-11-03 09:11] LABS: Estimated Average Glucose 114 mg/dL; Hemoglobin A1c % 5.6 % (<6.0)
[2024-11-03] MEDS: hydroCHLOROthiazide 12.5 MG TABLET PO (09:15)
[2024-11-03 09:19] LABS: Free T4 (Free Thyroxine) 0.84 ng/dL (0.71-1.85); Thyroid Stimulating Hormone 2.21 uIU/mL (0.32-4.0)
--- NOTE | 2024-11-03 13:17 | MHC.SHP ---
Pre-Procedural Eval Section A - 24 Hr Update-Section A only Date of Service: 11/03/24 The patient is an INPATIENT: Yes Changes since office visit: No Cold of Flu in the past 2 weeks, No New Medical Problems, No Changes in Medication and No Patient answered all questions The patient has been examined within 24 hours of the surgical procedure. The History & Physical has been completed within 30 days and I have reviewed it.: Yes Section B - Complete if H&P > 30 days Chief Complaint: Infx s/p R quad tendon repair Allergies: Allergies Allergy/AdvReac Type Severity Reaction Status Date / Time No Known Allergies Allergy Verified 11/02/24 13:06 [No Known Allergies*] Plan I have reviewed the history and physical and performed a pertinent physical examination on my patient. No changes have occurred unless specified. Time Spent With Patient Time: Total time managing care of this patient today ____ minutes.
--- NOTE | 2024-11-03 13:20 | MHC.CM.PN ---
FROM HOME, LIVES ALONE USES WALKER, CRUTCHES DOES NOT RECEIVE SERVICES HCP, MAKAYLA, PCP JAMESON SANTACRUZ [facility] DELIVERED DCP- [facility] REFERRAL MADE, PRIVATE TRANSPORT
--- NOTE | 2024-11-03 13:56 | HO.ANESPROP2 ---
HPI - Anesthesia Eval Consult details Narrative: 69 yo M presenting for I&D of right lower extremity PMFSH Active Problems Active Problems: All Active Problems First degree atrioventricular block by electrocardiogram (Acute) Obesity (Acute) HTN (hypertension) (Acute) Anemia (Acute) Subclinical hypothyroidism (Acute) Cellulitis (Acute) Surgical site infection (Acute) Surgical site infection (Acute) Rupture of right quadriceps tendon (Chronic) Gout (Acute) Elevated bilirubin (Acute) Medicare annual wellness visit, initial (Acute) Hyperkalemia (Acute) Acute osteomyelitis of left foot (Acute) Wound infection (Acute) Elevated fasting blood sugar (Acute) Dyslipidemia (Acute) Finger pain (Acute) Dupuytren's contracture of right hand (Acute) Toe infection (Acute) Acute osteomyelitis of toe of left foot (Acute) Cellulitis of left foot (Acute) Paronychia of great toe (Acute) Elevated TSH (Acute) Screening PSA (prostate specific antigen) (Acute) Past Medical History Medical History Obesity HTN (hypertension) Rupture of right quadriceps tendon Gout Paronychia of great toe Elevated TSH Screening PSA (prostate specific antigen) Varicose veins of both lower extremities Functional capacity: independent ambulation (normally without current R knee issue, pt is not permitted to walk and is wearing extension brace ) Family History Family History Father HTN (hypertension) Mother Parkinsons disease Family history of problems with anesthesia: No Surgical History Surgical History History of amputation of left great toe (07/01/22) Hx of hand surgery Status post debridement (06/16/22) Hx of vascular surgery Hx of colonoscopy History of Problems with Anesthesia: No Social History Social History Household Members: None Housing: House Are you a primary healthcare educator to a significant other at home: No Do you presently have visiting nurse or other home services: No Alcohol intake: current Alcohol intake frequency: holidays/special occasions only Comment: falling start, wrist band, socks in place Patient Tobacco Use Status: Never used Tobacco e-Cigarette/Vaping Use: Never Used Second Hand Smoke Exposure: No Advance Directives Date on File: 10/13/23 service: No Current occupational status: retired Cognitive needs: No Hearing needs: No Vision needs: No Meds Allergies Allergy/AdvReac Type Severity Reaction Status Date / Time No Known Allergies Allergy Verified 11/03/24 13:46 [No Known Allergies*] Active Medications: Current Medications Acetaminophen (Acetaminophen 325 Mg Tablet) 650 mg PO Q6H PRN PRN Reason: Pain, Mild 1-3,fever,headache Hydrochlorothiazide (Hydrochlorothiazide 12.5 Mg Tablet) 12.5 mg PO DAILY [facility]; Protocol Last Admin: 11/03/24 09:15 Dose: 12.5 mg Lactated Ringer's (Lr) 1,000 mls @ 100 mls/hr IVCONT .Q10H [facility] Last Admin: 11/03/24 05:32 Dose: 100 mls/hr Vancomycin HCl 1,250 mg/ (Sodium Chloride) 250 mls @ 166.667 mls/hr IV Q12H [facility] Last Infusion: 11/03/24 10:27 Dose: Infused Oxycodone HCl (Oxycodone Hcl Immed Release 5 Mg Tablet) 5 mg PO Q4H PRN PRN Reason: Pain, Moderate(Pain Scale 4-6) Pharmacy Consult (Consult Rx Vancomycin Dosing) 1 each MISCELLANE DAILY PRN PRN Reason: Consult order Sodium Chloride (0.9 % Sodium Chloride Flush 3 Ml Syringe) 3 ml IVFLUSH QSHIFT [facility] Last Admin: 11/03/24 08:23 Dose: Not Given Home Medications ?Medication ?Instructions ?Recorded ?Confirmed ?Last Taken ?Type multivitamin 1 tab PO DAILY 03/09/23 11/02/24 11/02/24 History omega 9-gfy-mve-fish oil 1,000 mg 1 cap PO DAILY 03/09/23 11/02/24 11/02/24 History (120 mg-180 mg) capsule (Fish Oil) atorvastatin 20 mg tablet 20 mg PO BEDTIME 10/13/24 11/02/24 11/01/24 History enoxaparin 40 mg/0.4 mL 40 mg subcut DAILY 11/02/24 11/02/24 11/02/24 History subcutaneous syringe glucosamine sulfate 500 mg tablet 500 mg PO DAILY 11/02/24 11/02/24 11/02/24 History (Glucosamine) Exam Exam Date and Time: 11/03/24 1355 Height,Weight and Vital Signs: Height 5 ft 10 in Weight 106.5 kg Last Vital Signs Temp 98.1 F 11/03/24 13:51 Pulse 53 11/03/24 13:51 Resp 18 11/03/24 13:51 BP 118/56 L 11/03/24 13:51 Pulse Ox 96 11/03/24 13:51 O2 Del Method Room Air 11/03/24 13:51 Pertinent Lab Results Pertinent Lab Results: Laboratory Tests 11/02/24 11/02/24 11/03/24 13:24 16:52 06:32 WBC 8.0 5.8 RBC 3.74 L 3.71 L Hgb 12.3 L 12.0 L Hct 33.4 L 33.6 L MCV 89.3 90.6 MCH 32.9 32.3 MCHC 36.8 H 35.7 RDW 12.3 12.5 Plt Count 443 H D 393 MPV 9.5 9.5 Immature Gran % (Auto) 0.2 0.3 Neut % (Auto) 70.9 60.1 Lymph % (Auto) 15.3 L 17.6 L [place] % (Auto) 10.5 14.7 H Eos % (Auto) 2.2 6.1 H Baso % (Auto) 0.9 1.2 Lymph # (Auto) 1.2 1.0 L [place] # (Auto) 0.8 0.9 Eos # (Auto) 0.2 0.4 Baso # (Auto) 0.1 0.1 Abs Immat Gran (auto) 0.02 0.02 Absolute Neuts (auto) 5.7 3.5 Absolute Nucleated RBC 0.000 0.000 Nucleated RBC % (auto) 0.0 0.0 ESR 97 H Sodium 137 142 Potassium 3.3 3.7 Chloride 106 111 H Carbon Dioxide 22 25 Anion Gap 12 10 L BUN 19 H 12 Creatinine 0.89 0.73 Estim Creat Clear Calc 93.1 113.5 Estimated GFR > 60 > 60 Random Glucose 150 H Fasting Glucose 109 H Estimat Average Glucose 114 Hemoglobin A1c % 5.6 Calcium 9.4 D 8.9 Magnesium 1.9 Total Bilirubin 0.7 Direct Bilirubin 0.3 AST 28 ALT 31 Alkaline Phosphatase 120 H C-Reactive Protein 10.48 H Total Protein 7.9 Albumin 3.4 L TSH 2.21 Free T4 0.84 Blood Type A Positive Antibody Screen NEGATIVE Airway Mallampati Class: III TM Dist: >3cm Neck ROM: Full Loose/Missing/Broken Teeth: No (patient denies any loose or broken teeth) Heart: S1S2 Lungs: CTAB Assessment and Plan Assessment Anesthesia Assessment: Anesthesia Plan Discussed and Chart Reviewed Final Anesthetic Review Family History of Problems with Anesthesia: No History of Problems with Anesthesia: No NPO: Yes ASA Class: II Final Preanesthetic Review: No Changes in Pt Med Stat, Meds/Allgs Chart Reviewed, Consent Obtained/Reviewed and Anes Risks/Benef Reviewed Patient Risk: Low Procedure Risk: Low Anesthetic Plan Anesthetic Plan: GA and Agree w/ Assess. and Plan Disposition: Standard PACU
--- NOTE | 2024-11-03 16:06 | PM.OP ---
Brief Operative Note Date of Service: 11/03/24 Pre-op diagnosis: Infected right knee Post-op diagnosis: same Procedure: Irrigation debridement right knee Surgeon: Christiano Celis MD Anesthesia: GLMA and local Was an Hospice Care Sales Consultant used for this Procedure?: Yes Hospice Care Sales Consultant: Maureen Huerta Estimated blood loss (mL): 100 IV fluids (mL): 750 Pathology: other Condition: stable Disposition: PACU
[2024-11-03] MEDS: 0.9 % Sodium Chloride Flush 3 ML SYRINGE IVFLUSH (16:15)
[2024-11-03 17:15] LABS: Vancomycin Trough 14.6 mcg/mL (10.0-20.0)
--- NOTE | 2024-11-03 17:22 | HE.PHANOTE ---
Vancomycin addendum: Random level after 2 doses came back at 14.6, predicted AUC is 524. Will keep dose at 1250 mg q 12 hours and recheck level after 2 more doses
[2024-11-03] MEDS: oxyCODONE HCl Immed Release 5 MG TABLET PO ×2 (18:37→22:39)
[2024-11-04] MEDS: Lactated Ringers 1,000 ML 100 ML IVCONT (00:55)
[2024-11-04] MEDS: vancomycin HCL 1,250 MG in 0.9 % Sodium Chloride 250 ML 166.67 MG IV (06:09)
[2024-11-04 07:00] LABS: MANUAL DIFF FLAG NO
[2024-11-04 07:10] LABS: Basophils Absolute Auto 0.1 X10*3/uL (0.0-0.2); Basophils Percent Auto 0.8 % (0-2); Eosinophils Absolute Auto 0.3 X10*3/uL (0.0-0.4); Eosinophils Percent Auto 3.2 % (0-4); Hematocrit 34.9 % (42.0-52.0); Hemoglobin 12.1 g/dl (14.0-18.0); Imm Gran Abs Auto 0.04 X10*3/uL (0.00-0.03); Imm Gran Pct Auto 0.4 % (0.0-0.4); Lymphocytes Absolute Auto 1.1 X10*3/uL (1.2-4.9); Lymphocytes Percent Auto 12.1 % (20-40); Mean Corpuscular HGB Conc 34.7 g/dl (31.0-36.0); Mean Corpuscular Hemoglobin 32.6 pg (27.0-33.0); Mean Corpuscular Volume 94.1 fL (80.0-98.0); Mean Platelet Volume 9.9 fL (9.4-12.4); Neutrophils Absolute Auto 6.5 x10*3/uL (2.0-8.3); Neutrophils Percent Auto 72.5 % (45-73); Platelet Count 412 X10*3/uL (160-400); Red Blood Count 3.71 X10*6/uL (4.60-5.80); Red Cell Distribution Width 12.6 % (11.0-16.0)
[2024-11-04 07:20] VITALS: BP 156/77; PULSE 74; RESP 18; TEMP 36.8; O2SAT 97
[2024-11-04 07:32] LABS: Anion Gap 11 (12-20); Blood Urea Nitrogen 11 mg/dL (9-16); Calcium 8.9 mg/dL (8.4-10.2); Carbon Dioxide 27 mmol/L (22-29); Chloride 107 mmol/L (96-108); Creatinine Clr Calc Pharmacy 103.5; Estimated Glomerular Filt Rate > 60; Glucose Fasting 110 mg/dL (60-99); Potassium 4.3 mmol/L (3.3-5.1); Sodium 141 mmol/L (135-145)
[2024-11-04 07:48] VITALS: BP 156/77; PULSE 69; O2SAT 97
[2024-11-04] MEDS: 0.9 % Sodium Chloride Flush 3 ML SYRINGE IVFLUSH ×3 (08:08→19:49)
[2024-11-04] MEDS: hydroCHLOROthiazide 12.5 MG TABLET PO (08:08)
[2024-11-04] MEDS: oxyCODONE HCl Immed Release 5 MG TABLET PO (08:30)
--- NOTE | 2024-11-04 08:55 | PM.PNORT ---
Subjective Subjective Date of Service: 11/04/24 Interval history: POD1 s/p right knee I&D Patient is resting in the recliner comfortably No overnight events Pain is managed No additional complaints Physical Exam Vital Signs: Vital Signs: Last Vital Signs Temp 98.2 F 11/04/24 07:20 Pulse 69 11/04/24 07:48 Resp 18 11/04/24 07:20 BP 156/77 H 11/04/24 07:48 Pulse Ox 97 11/04/24 07:48 O2 Del Method Room Air 11/04/24 07:20 O2 Flow Rate 6 11/03/24 15:47 BMI result Body Mass Index 33.7 Const: General: cooperative, healthy appearing and no acute distress Resp: Effort & Inspection: normal respiratory effort and able to speak in complete sentences Cardio: Rate: regular rate Peripheral pulses: Peripheral pulses 2+ throughout Skin: Lesions: no lesions Rashes: no rashes Extrem: Other: Right knee packing pulled and new dressing placed - Pressure dressing. Bloody discharge without purulence. Able to dorsi/pantar flex. Calf is supple and nontender. NVI. Procedures Date of Service Date of Service: 11/04/24 Progress Note: A&P Assessment and plan (1) Surgical site infection: Status: Acute (2) Cellulitis: Status: Acute Plan Continue pain mgmnt Begin Lovenox for dvt ppx begin PT/OT: WBAT with leg in extension in the brace at all times with a walker Packing pulled at bedside and wound redressed Dressing changes as needed Dispo planning-Pending PT eval, pain mgmnt, pending cultures Time Spent With Patient Time: Total time managing care of this patient today ____ minutes. Quality Stroke Does the patient have a stroke diagnosis?: No VTE Prior VTE?: No VTE Risk Level:: Surgical - moderate VTE Device Contraindication: N/A - Device Ordered VTE Drug Contraindication: Treatment Not Indicated
--- NOTE | 2024-11-04 15:10 | HO.POSTANES ---
Post Anesthesia Evaluation Post Anesthesia Evaluation Date of Service: 11/04/24 Vital Signs: Vital Signs Temp Pulse Resp BP Pulse Ox O2 Del Method 11/04/24 07:48 69 156/77 H 97 11/04/24 07:20 98.2 F 74 18 156/77 H 97 Room Air Anesthesia: General LMA Mental Status: Awake Pain Control: Satisfactory Nausea/Vomiting: None Hydration: Adequate Anesthesia-Related Issues: No Anes. Related Issues
[2024-11-04 15:24] VITALS: BP 122/58; PULSE 58; RESP 16; TEMP 37.1; O2SAT 98
[2024-11-04] MEDS: Enoxaparin Sodium 40 MG/0.4 ML SYRINGE SUBCUT (15:47)
[2024-11-04 17:28] LABS: Vancomycin Trough 15.4 mcg/mL (10.0-20.0)
[2024-11-04] MEDS: vancomycin HCL 1,000 MG in 0.9 % Sodium Chloride 250 ML 270 MG IV (18:21)
[2024-11-05 03:20] VITALS: BP 131/60; PULSE 52; RESP 16; TEMP 36.1; O2SAT 96
[2024-11-05] MEDS: vancomycin HCL 1,000 MG in 0.9 % Sodium Chloride 250 ML 270 MG IV (05:57)
[2024-11-05 06:58] LABS: MANUAL DIFF FLAG NO
[2024-11-05 07:06] LABS: Basophils Percent Auto 0.6 % (0-2); Eosinophils Absolute Auto 0.3 X10*3/uL (0.0-0.4); Eosinophils Percent Auto 4.7 % (0-4); Hematocrit 32.9 % (42.0-52.0); Hemoglobin 11.5 g/dl (14.0-18.0); Imm Gran Abs Auto 0.02 X10*3/uL (0.00-0.03); Imm Gran Pct Auto 0.3 % (0.0-0.4); Lymphocytes Absolute Auto 1.6 X10*3/uL (1.2-4.9); Lymphocytes Percent Auto 23.2 % (20-40); Mean Corpuscular Hemoglobin 32.4 pg (27.0-33.0); Mean Corpuscular Volume 92.7 fL (80.0-98.0); Mean Platelet Volume 9.7 fL (9.4-12.4); Monocytes Absolute Auto 0.8 X10*3/uL (0.1-1.2); Monocytes Percent Auto 11.8 % (2-11); Neutrophils Absolute Auto 4.2 x10*3/uL (2.0-8.3); Neutrophils Percent Auto 59.4 % (45-73); Platelet Count 427 X10*3/uL (160-400); Red Blood Count 3.55 X10*6/uL (4.60-5.80); Red Cell Distribution Width 12.4 % (11.0-16.0)
[2024-11-05 07:21] VITALS: BP 124/59; PULSE 56; RESP 16; TEMP 36.3; O2SAT 98
[2024-11-05 07:28] LABS: Anion Gap 11 (12-20); Blood Urea Nitrogen 8 mg/dL (9-16); Calcium 8.9 mg/dL (8.4-10.2); Carbon Dioxide 26 mmol/L (22-29); Chloride 108 mmol/L (96-108); Estimated Glomerular Filt Rate > 60; Glucose Fasting 109 mg/dL (60-99); Potassium 3.9 mmol/L (3.3-5.1); Sodium 141 mmol/L (135-145)
[2024-11-05] MEDS: hydroCHLOROthiazide 12.5 MG TABLET PO (08:30)
[2024-11-05] MEDS: 0.9 % Sodium Chloride Flush 3 ML SYRINGE IVFLUSH ×4 (08:30→20:12)
--- NOTE | 2024-11-05 09:18 | PM.PNORT ---
Subjective Subjective Date of Service: 11/05/24 Interval history: POD1 s/p right knee I&D Patient is resting in the recliner comfortably Paramjit wrap intact clean and dry No overnight events Pain is managed No additional complaints Physical Exam Vital Signs: Vital Signs: Last Vital Signs Temp 97.4 F 11/05/24 07:21 Pulse 56 11/05/24 07:21 Resp 16 11/05/24 07:21 BP 124/59 L 11/05/24 07:21 Pulse Ox 98 11/05/24 07:21 O2 Del Method Room Air 11/05/24 07:21 O2 Flow Rate 6 11/03/24 15:47 BMI result Body Mass Index 33.7 Const: General: cooperative, healthy appearing and no acute distress Resp: Effort & Inspection: normal respiratory effort and able to speak in complete sentences Cardio: Rate: regular rate Peripheral pulses: Peripheral pulses 2+ throughout Skin: Lesions: no lesions Rashes: no rashes Extrem: Other: Right knee dressing changed - Pressure dressing. Bloody and serosang discharge without purulence. Able to dorsi/pantar flex. Calf is supple and nontender. NVI. Procedures Date of Service Date of Service: 11/05/24 Progress Note: A&P Assessment and plan (1) Surgical site infection: Status: Acute (2) Cellulitis: Status: Acute Plan Continue pain mgmnt Continue Lovenox for dvt ppx Continue PT/OT: WBAT with leg in extension in the brace at all times with a walker Dressing changed at bedside this morning Dressing changes as needed Dispo planning-PT/OT, pain mgmnt, continue IV abx Time Spent With Patient Time: Total time managing care of this patient today ____ minutes. Quality Stroke Does the patient have a stroke diagnosis?: No VTE Prior VTE?: No VTE Risk Level:: Surgical - moderate VTE Device Contraindication: N/A - Device Ordered VTE Drug Contraindication: Treatment Not Indicated
[2024-11-05] MEDS: Enoxaparin Sodium 40 MG/0.4 ML SYRINGE SUBCUT (15:24)
[2024-11-05 16:40] VITALS: BP 128/61; PULSE 64; RESP 18; TEMP 36.5; O2SAT 98
[2024-11-05 17:26] LABS: Vancomycin Random 13.2 mcg/mL (15-20)
--- NOTE | 2024-11-05 17:37 | HE.PHANOTE ---
Re Vanco Renal improved. Current regimen with provide a subtherapeutic AUC. Will return to 1250mg q12h, should achieve an AUC of 468 mg/L and trough if 14 mg/L. Next level after two doses, tomorrow @1700.
[2024-11-05] MEDS: vancomycin HCL 1,250 MG in 0.9 % Sodium Chloride 250 ML 166.67 MG IV (18:07)
[2024-11-05] MEDS: Docusate Sodium 100 MG CAPSULE 200 MG PO (18:42)
[2024-11-05 19:53] VITALS: BP 123/58; PULSE 60; RESP 18; TEMP 36.8; O2SAT 97
--- NOTE | 2024-11-05 22:41 | P.CNID_ITS ---
History of Present Illness Data of Consult Service Date: 11/05/24 Requesting physician: Enio Collins Primary Care Provider: Fausto Pat [facility] HPI Reason for consult: quad tendon infection He presents initially with fall on ice on 09/18. He had quad tendon rupture and operation for repair on 09/29 He fell again on 09/30 and needed re repair. He had complaints of pain and redness in the right knee and presented on 11/02. He had ken out on 10/25 and no complaints at this time. 11/03 he had quad tendon repair and debridement and cultures pending. He is on Vancomycin IV now and blood cultures negative and no sepsis signs. Review of Systems 2 Review of Systems: Yes all other systems are reviewed and are negative PMFSH Past Medical History Medical History Obesity HTN (hypertension) Rupture of right quadriceps tendon Gout Paronychia of great toe Elevated TSH Screening PSA (prostate specific antigen) Varicose veins of both lower extremities Family History Family History Father HTN (hypertension) Mother Parkinsons disease Family history: reviewed and not pertinent Surgical History Surgical History History of amputation of left great toe (07/01/22) Hx of hand surgery Status post debridement (06/16/22) Hx of vascular surgery Hx of colonoscopy Social History Social History Household Members: None Housing: House Are you a primary geriatric personal care aide to a significant other at home: No Do you presently have visiting nurse or other home services: No Alcohol intake: current Alcohol intake frequency: holidays/special occasions only Comment: COUNTS CORRECT Patient Tobacco Use Status: Never used Tobacco e-Cigarette/Vaping Use: Never Used Second Hand Smoke Exposure: No Advance Directives Date on File: 10/13/23 service: No Current occupational status: retired Cognitive needs: No Hearing needs: No Vision needs: No Travel History Ebola Risk: Travel/Contact With Anyone From Affected Area/s: No Has Patient Experienced Ebola Symptoms: No Meds Allergies Allergy/AdvReac Type Severity Reaction Status Date / Time No Known Allergies Allergy Verified 11/03/24 13:46 [No Known Allergies*] Active Medications: Current Medications Acetaminophen (Acetaminophen 325 Mg Tablet) 650 mg PO Q6H PRN PRN Reason: Pain, Mild 1-3,fever,headache Enoxaparin Sodium (Enoxaparin Sodium 40 Mg/0.4 Ml Syringe) 40 mg SUBCUT Q24H [facility] Last Admin: 11/05/24 15:24 Dose: 40 mg Hydrochlorothiazide (Hydrochlorothiazide 12.5 Mg Tablet) 12.5 mg PO DAILY [facility]; Protocol Last Admin: 11/05/24 08:30 Dose: 12.5 mg Vancomycin HCl 1,250 mg/ (Sodium Chloride) 250 mls @ 166.667 mls/hr IV Q12H [facility] Last Infusion: 11/05/24 20:12 Dose: Infused Oxycodone HCl (Oxycodone Hcl Immed Release 5 Mg Tablet) 5 mg PO Q4H PRN PRN Reason: Pain, Moderate(Pain Scale 4-6) Last Admin: 11/04/24 08:30 Dose: 5 mg Pharmacy Consult (Consult Rx Vancomycin Dosing) 1 each MISCELLANE DAILY PRN PRN Reason: Consult order Sodium Chloride (0.9 % Sodium Chloride Flush 3 Ml Syringe) 3 ml IVFLUSH QSHIFT [facility] Last Admin: 11/05/24 20:12 Dose: 3 ml Home Medications ?Medication ?Instructions ?Recorded ?Confirmed ?Last Taken ?Type multivitamin 1 tab PO DAILY 03/09/23 11/02/24 11/02/24 History omega 1-ait-vbv-fish oil 1,000 mg 1 cap PO DAILY 03/09/23 11/02/24 11/02/24 History (120 mg-180 mg) capsule (Fish Oil) atorvastatin 20 mg tablet 20 mg PO BEDTIME 10/13/24 11/02/24 11/01/24 History enoxaparin 40 mg/0.4 mL 40 mg subcut DAILY 11/02/24 11/02/24 11/02/24 History subcutaneous syringe glucosamine sulfate 500 mg tablet 500 mg PO DAILY 11/02/24 11/02/24 11/02/24 History (Glucosamine) Physical Exam 2 Vital Signs: Vital Signs: Last Vital Signs Temp 98.2 F 11/05/24 19:53 Pulse 60 11/05/24 19:53 Resp 18 11/05/24 19:53 BP 123/58 L 11/05/24 19:53 Pulse Ox 97 11/05/24 19:53 O2 Del Method Room Air 11/05/24 19:53 O2 Flow Rate 6 11/03/24 15:47 BMI result Body Mass Index 33.7 Const: General: cooperative HEENT: Head: Yes normal to inspection Face and sinus: Yes normal facial exam Mouth: Normal oral and palatal mucosa present Teeth and gingiva: d entition normal Eyes: General: appearance normal, both eyes and all related structures P upils: Equal, round and reactive pupils present Resp: Effort & Inspection: normal respiratory effort Cardio: Rate: regular rate Rhythm: regular rhythm GI: Palpation (GI): Soft to palpation and nontender : General: Yes no CVA tenderness Back/Spine/Pelvis: Back: no CVA tenderness Skin: General skin exam: no rashes or lesions noted Neuro: General: moves all extremities Cranial nerves: Yes Equal, round and reactive pupils present Extrem: Other: right knee wrapped Psych: Appearance: grossly normal Results Labs 11/05/24 06:09 11/05/24 06:09 Labs: Short CBC 11/05/24 Range/Units 06:09 WBC 7.0 (4.8-10.8) X10*3/uL Hgb 11.5 L (14.0-18.0) g/dl Hct 32.9 L (42.0-52.0) % Plt Count 427 H (160-400) X10*3/uL BMP 11/05/24 06:09 Sodium 141 Potassium 3.9 Chloride 108 Carbon Dioxide 26 BUN 8 L Creatinine 0.69 Calcium 8.9 Microbiology Microbiology Results: Microbiology 11/02/24 16:52 Blood - Venous Blood Culture - Preliminary No growth after 48 hours. 11/02/24 16:52 Blood - Venous Blood Culture - Preliminary No growth after 48 hours. Assessment and Plan (1) Rupture of right quadriceps tendon: Qualifiers: Encounter type: initial encounter Qualified Code(s): S76.111A - Strain of right quadriceps muscle, fascia and tendon, initial encounter Status: Chronic (2) Surgical site infection: Status: Acute Plan Continue IV Vancomycin for this time. Await cultures. Would probable give antibiotics for 4-6 weeks,IV Vancomycin or po Doxycycline if nothing grows.
[2024-11-06] VITALS (7 sets, daily range): BP systolic 110–133; BP diastolic 56–63; PULSE 52–58; RESP 15–17; TEMP 36.2–37.1; O2SAT 95–97
[2024-11-06 05:36] LABS: MANUAL DIFF FLAG NO
[2024-11-06 05:48] LABS: Basophils Absolute Auto 0.1 X10*3/uL (0.0-0.2); Eosinophils Absolute Auto 0.4 X10*3/uL (0.0-0.4); Eosinophils Percent Auto 5.9 % (0-4); Hematocrit 33.5 % (42.0-52.0); Hemoglobin 11.5 g/dl (14.0-18.0); Imm Gran Abs Auto 0.02 X10*3/uL (0.00-0.03); Imm Gran Pct Auto 0.3 % (0.0-0.4); Lymphocytes Absolute Auto 1.3 X10*3/uL (1.2-4.9); Lymphocytes Percent Auto 18.1 % (20-40); Mean Corpuscular HGB Conc 34.3 g/dl (31.0-36.0); Mean Corpuscular Hemoglobin 32.4 pg (27.0-33.0); Mean Corpuscular Volume 94.4 fL (80.0-98.0); Mean Platelet Volume 9.6 fL (9.4-12.4); Monocytes Absolute Auto 0.8 X10*3/uL (0.1-1.2); Monocytes Percent Auto 11.7 % (2-11); Neutrophils Absolute Auto 4.3 x10*3/uL (2.0-8.3); Platelet Count 437 X10*3/uL (160-400); Red Blood Count 3.55 X10*6/uL (4.60-5.80); Red Cell Distribution Width 12.3 % (11.0-16.0); White Blood Count 6.9 X10*3/uL (4.8-10.8)
[2024-11-06 05:58] LABS: Anion Gap 10 (12-20); Blood Urea Nitrogen 11 mg/dL (9-16); Carbon Dioxide 27 mmol/L (22-29); Chloride 107 mmol/L (96-108); Creatinine Clr Calc Pharmacy 102.2; Estimated Glomerular Filt Rate > 60; Glucose Fasting 113 mg/dL (60-99); Potassium 4.2 mmol/L (3.3-5.1); Sodium 140 mmol/L (135-145)
[2024-11-06] MEDS: vancomycin HCL 1,250 MG in 0.9 % Sodium Chloride 250 ML 166.67 MG IV ×2 (06:34→18:34)
[2024-11-06] MEDS: hydroCHLOROthiazide 12.5 MG TABLET PO (08:03)
[2024-11-06] MEDS: 0.9 % Sodium Chloride Flush 3 ML SYRINGE IVFLUSH (08:05)
--- NOTE | 2024-11-06 08:22 | PM.PNORT ---
Subjective Subjective Date of Service: 11/06/24 Interval history: POD1 s/p right knee I&D Patient is resting in the recliner comfortably Paramjit wrap and badage has some saturation of serosang and bloody discharge No overnight events Pain is managed No additional complaints Physical Exam Vital Signs: Vital Signs: Last Vital Signs Temp 97.1 F 11/06/24 07:32 Pulse 57 11/06/24 07:32 Resp 16 11/06/24 07:32 BP 124/56 L 11/06/24 07:32 Pulse Ox 95 11/06/24 07:32 O2 Del Method Room Air 11/06/24 07:32 O2 Flow Rate 6 11/03/24 15:47 BMI result Body Mass Index 33.7 Const: General: cooperative, healthy appearing and no acute distress Resp: Effort & Inspection: normal respiratory effort and able to speak in complete sentences Cardio: Rate: regular rate Peripheral pulses: Peripheral pulses 2+ throughout Skin: Lesions: no lesions Rashes: no rashes Extrem: Other: Right knee dressing changed - Pressure dressing. Bloody and serosang discharge without purulence. Able to dorsi/pantar flex. Calf is supple and nontender. NVI. Procedures Date of Service Date of Service: 11/06/24 Progress Note: A&P Assessment and plan (1) Surgical site infection: Status: Acute (2) Cellulitis: Status: Acute Plan Continue pain mgmnt Continue Lovenox for dvt ppx Continue PT/OT: WBAT with leg in extension in the brace at all times with a walker Dressing changed at bedside this morning Dressing changes as needed PICC line being placed this AM Infectious disease consult: Give antibiotics for 4-6 weeks, IV Vancomycin or po Doxycycline if nothing grows. Dispo planning-PT/OT, pain mgmnt, continue IV abx, PICC placement Time Spent With Patient Time: Total time managing care of this patient today ____ minutes. Quality Stroke Does the patient have a stroke diagnosis?: No VTE Prior VTE?: No VTE Risk Level:: Surgical - moderate VTE Device Contraindication: N/A - Device Ordered VTE Drug Contraindication: Treatment Not Indicated
--- NOTE | 2024-11-06 09:12 | HO.PICC ---
PICC Line Insertion NPICC Diagnosis: Surgical site infection Indication: [facility] ABT Pertinent Labs: Reviewed Technique: Following informed consent including risks, benefits and alternatives and using sterile technique including cap and mask, sterile gown, glove and drape, the arm was prepped and draped in the usual sterile fashion of full barrier technique with G. Following completion of [place] Protocol the skin and soft tissues were anesthetized with 1% Lidocaine plain. Using ultrasound guidance, right brachial vein access was obtained. Over an 0.018 wire through peel-away sheath, a 4FR single lumen PASV PICC line was positioned. Catheter length is 40cm internal length, 0cm external length, for a total trimmed length of 40cm. The procedure was performed in 272. Tip verification was performed by Ksenia Pool with Sherlock 3CG. Tip located in SVC. Ultrasound was used to document vein patency and for needle entry. A formal ultrasound picture and cardiac rhythm strip was recorded. [employer] has released the line for use and it is currently dressed with a StatLock, Tegaderm, and CHG disc. Verification has been performed for blood return and line patency. Arm Circumference: 42cm Equipment: [employer] PowerPICC SOLO catheter with Sherlock 3CG Catheter Type: 4fr single lumen PASV Lot #: [id number]
--- NOTE | 2024-11-06 13:30 | MHC.CM.PN ---
Per MD rounds No discharge today. Final Cultures are pending. A PICC line has been inserted. Clinical info has been sent to [facility] and [facility]. The [facility]ason has been notified. DP home with IV ABX. Pt may need assist with transport.
[2024-11-06] MEDS: Enoxaparin Sodium 40 MG/0.4 ML SYRINGE SUBCUT (14:57)
[2024-11-06] MEDS: 0.9 % Sodium Chloride Flush 10 ML SYRINGE 5 ML IVFLUSH ×2 (14:59→20:08)
--- NOTE | 2024-11-06 15:31 | PM.DS ---
DS: Providers Provider Date of Service: 11/06/24 Date of admission: 11/02/24 16:35 Date of discharge: 11/07/24 Primary care physician: MAURILIO Cortez Consults: 11/02/24 16:27 Consult to Hospitalist Routine Comment: Consulting Provider: [facility] Hospitalists Reason For Exam: Ongoing medical management, clearance 11/05/24 09:35 Consult to Infectious Diseases Routine Consulting Provider: [facility] Reason for consultation: rt quad tendon I&D surgical site infection DS: Diagnosis Discharge Diagnosis (1) Surgical site infection: Status: Acute (2) Cellulitis: Status: Acute DS: Summary Hospital Course Hospital Course: Jorge Guardado is a 69 year old male who is admitted to the Orthopedic Service on 11/02/2024 after presenting to the emergency department for redness, swelling, discharge of the incision site on the right knee status post right quad tendon repair DOS 10/13/2024 On admission patient was started on IV antibiotics vancomycin. 11/03/2024 The patient underwent a successful Right quad tendon irrigation and debridement with Dr Celis, was transferred to PACU and then to the floor to recover. During their stay, their vitals were stable, afebrile at 98.2. Labs were unremarkable, H/H 11.5/33.5. POD 1 he was started on lovenox for DVT ppx, they also received Physical Therapy services , WBAT with brace locked in extension. 11/06/24 PICC line inserted: PICC Line Insertion NPICC Diagnosis: Surgical site infection Indication: care home ABT Pertinent Labs: Reviewed Technique: Following informed consent including risks, benefits and alternatives and using sterile technique including cap and mask, sterile gown, glove and drape, the arm was prepped and draped in the usual sterile fashion of full barrier technique with [facility]. Following completion of [place] Protocol the skin and soft tissues were anesthetized with 1% Lidocaine plain. Using ultrasound guidance, right brachial vein access was obtained. Over an 0.018 wire through peel-away sheath, a 4FR single lumen PASV PICC line was positioned. Catheter length is 40cm internal length, 0cm external length, for a total trimmed length of 40cm. The procedure was performed in 272. Tip verification was performed by Ksenia Pool with Carolynn 3CG. Tip located in SVC. Ultrasound was used to document vein patency and for needle entry. A formal ultrasound picture and cardiac rhythm strip was recorded. [employer] [employer] has released the line for use and it is currently dressed with a StatLock, Tegaderm, and CHG disc. Verification has been performed for blood return and line patency. Arm Circumference: 42cm Equipment: [employer] PowerPICC SOLO catheter with Sherlock 3CG Catheter Type: 4fr single lumen PASV Lot #: [id number] Prior to discharge, his dressing was changed, incision clean dry and intact, new dressing applied. Dressing should remain intact and dry at all times. Any concerns with the dressing, please contact orthopedic office. No showering. The plan is to be discharged home with VNA services. Weekly BUN/creatinine Check Vanco trough levels after 4th dose Keep Vanco trough level between 10 and 20 Routine discharge flushing with 10 mL of normal saline after blood specimen withdrawal, medication administration or post transfusion flushing Time Attestation Discharge Coordination Time (in mins): 45 Quality: Safe Use of Opioids Does Pt have an Active Cancer Diagnosis on the Problem List?: No Quality: Stroke Does the patient have a stroke diagnosis?: No Physical Exam Vital Signs: Vital Signs: Last Vital Signs Temp 98.2 F 11/06/24 15:29 Pulse 52 11/06/24 15:29 Resp 15 11/06/24 15:29 BP 110/56 L 11/06/24 15:29 Pulse Ox 97 11/06/24 15:29 O2 Del Method Room Air 11/06/24 15:29 O2 Flow Rate 6 11/03/24 15:47 BMI result Body Mass Index 33.7 DS: Data Data Completed and Pending Completed studies during hospitalization [Text1]: Procedures Detachment at Left 1st Toe, Complete, Open Approach (06/26/22) Fluoroscopy of Superior Vena Cava, Guidance (03/09/23) Insertion of Infusion Device into Superior Vena Cava, Percutaneous Approach (03/09/23) Ultrasonography of Superior Vena Cava, Guidance (04/08/22) Labs on day of discharge: Laboratory Results - last 24 hr 11/05/24 11/06/24 16:53 05:31 WBC 6.9 RBC 3.55 L Hgb 11.5 L Hct 33.5 L MCV 94.4 MCH 32.4 MCHC 34.3 RDW 12.3 Plt Count 437 H MPV 9.6 Immature Gran % (Auto) 0.3 Neut % (Auto) 63.0 Lymph % (Auto) 18.1 L [place] % (Auto) 11.7 H Eos % (Auto) 5.9 H Baso % (Auto) 1.0 Lymph # (Auto) 1.3 [place] # (Auto) 0.8 Eos # (Auto) 0.4 Baso # (Auto) 0.1 Abs Immat Gran (auto) 0.02 Absolute Neuts (auto) 4.3 Absolute Nucleated RBC 0.000 Nucleated RBC % (auto) 0.0 Sodium 140 Potassium 4.2 Chloride 107 Carbon Dioxide 27 Anion Gap 10 L BUN 11 Creatinine 0.81 Estim Creat Clear Calc 102.2 Estimated GFR > 60 Fasting Glucose 113 H Calcium 9.0 Random Vancomycin 13.2 L Preliminary micro results at discharge 11/02/24 16:52 Blood Culture - Preliminary Blood - Venous No growth after 48 hours. 11/02/24 16:52 Blood Culture - Preliminary Blood - Venous No growth after 48 hours. Discharge Plan Discharge Anticipated Discharge Date/Time: 11/07/24 12:59 Patient Disposition: Home Health Service Discharge Diagnosis: Status post right quad irrigation and debridement Referrals: [facility] [Outside] - 1 Week Christiano Celis MD [Physician] - 2 Weeks (11/23/24 13:15 [facility] Christiano Celis MD) Discharge Medications: New acetaminophen 325 mg Tablet 650 mg PO Q6H PRN (Reason: Pain, Mild 1-3,Fever,Headache) 30 Days Qty: 240 0RF oxycodone 5 mg Tablet 5 mg PO Q4H PRN (Reason: Pain, Moderate(Pain Scale 4-6)) 7 Days Qty: 42 0RF Rx Instructions: Partial Fill upon patient request. enoxaparin 40 mg/0.4 mL Syringe 40 mg subcut Q24H 42 Days Qty: 16.8 0RF vancomycin in 0.9 % sodium chl 1.25 gram/250 mL solution 1.25 g IV Q12H 42 Days Continued allopurinol 100 mg tablet 100 mg PO DAILY 90 Days Qty: 90 1RF hydrochlorothiazide 12.5 mg tablet 12.5 mg PO DAILY Qty: 90 1RF atorvastatin 20 mg tablet 20 mg PO BEDTIME docusate sodium 100 mg Capsule 100 mg PO BID 30 Days Qty: 60 0RF enoxaparin 40 mg/0.4 mL syringe 40 mg subcut DAILY glucosamine sulfate [Glucosamine] 500 mg Tablet 500 mg PO DAILY Rx Instructions: administer with a meal multivitamin Tablet 1 tab PO DAILY omega 0-qbv-ipw-fish oil [Fish Oil] 1,000 mg (120 mg-180 mg) Capsule 1 cap PO DAILY Discharge Orders: Discharge Order (Routine); Ordered 11/07/24 Ordered By: Maureen Huerta Diet: Regular diet Activity on Discharge: Use cane or walker Stand Alone Forms: Patient Portal Discharge page Print Language: German Care Plan Goals: Restore function of joint Health Concerns: Monitor infection Plan of Treatment: IV abx vanco trough Assessment: wbat with brace locked in extension
--- NOTE | 2024-11-06 16:01 | W.MHC.F2F ---
Service Date Service Date: 11/06/24 Encounter Date of encounter: 11/06/24 Reasons for Services Signs and symptoms assessed: Weakness, poor balance, poor gait mechanics Reason for retirement: administration of IV, SQ, or IM injection, medication management and medication treatment Reason for physical therapy: home safety and mobility, therapeutic exercises, restore joint function, gait/transfer training, ADL training and energy conservation Reason for occupational therapy: home safety and mobility, therapeutic exercises, restore joint function, gait/transfer training, ADL training and energy conservation Overseeing Care: Christiano Celis Homebound: Leaving the home is medically contraindicated at this time without the asist of a device and/or another person due th the listed conditions above and below. Reason homebound: unsteady gait / fall risk, pain with ambulation, poor balance / fall risk, shortness of breath at rest, non-weight bearing and unable to drive Homebound supporting statement: Pt. is considered home bound due to recent surgery. Unable to drive, poor balance, poor gait mechanics. Certification: Based on the above findings, I certify that this patient is confined to the home and needs intermittent retirement care, physical therapy and/or speech therapy, or continues to need occupational therapy. The patient is under my care, and I have initiated the establishment of the plan of care. The patient will be followed by a physician who will periodically review the plan of care. Time Spent With Patient Time: Total time managing care of this patient today ____ minutes.
[2024-11-06 17:14] LABS: Vancomycin Random 17.2 mcg/mL (15-20)
--- NOTE | 2024-11-06 17:32 | HE.PHANOTE ---
VANCO DOSE BASED ON SCR AND TROUGH DOSE CONTINUED AT 1250 Q 12H. NEXT LEVEL 11/07 @ 1700. PATIENT SHOULD BE AT STEADY STATE. INSIGHT EXPECTED AUC OF 528. IF SCR CONTINUES TO RISE WOULD RECOMMEND DROPPING TO 1000 Q 12
[2024-11-07 03:43] VITALS: BP 141/65; PULSE 51; RESP 16; TEMP 36.7; O2SAT 96
[2024-11-07 05:50] LABS: MANUAL DIFF FLAG NO
[2024-11-07 06:02] LABS: Basophils Absolute Auto 0.1 X10*3/uL (0.0-0.2); Basophils Percent Auto 0.9 % (0-2); Eosinophils Absolute Auto 0.4 X10*3/uL (0.0-0.4); Hematocrit 32.8 % (42.0-52.0); Hemoglobin 11.3 g/dl (14.0-18.0); Imm Gran Abs Auto 0.03 X10*3/uL (0.00-0.03); Imm Gran Pct Auto 0.4 % (0.0-0.4); Lymphocytes Absolute Auto 1.5 X10*3/uL (1.2-4.9); Lymphocytes Percent Auto 21.1 % (20-40); Mean Corpuscular HGB Conc 34.5 g/dl (31.0-36.0); Mean Corpuscular Hemoglobin 32.2 pg (27.0-33.0); Mean Corpuscular Volume 93.4 fL (80.0-98.0); Mean Platelet Volume 9.6 fL (9.4-12.4); Monocytes Absolute Auto 0.7 X10*3/uL (0.1-1.2); Monocytes Percent Auto 10.1 % (2-11); Neutrophils Absolute Auto 4.4 x10*3/uL (2.0-8.3); Neutrophils Percent Auto 62.5 % (45-73); Platelet Count 454 X10*3/uL (160-400); Red Blood Count 3.51 X10*6/uL (4.60-5.80); Red Cell Distribution Width 12.4 % (11.0-16.0)
[2024-11-07 06:11] LABS: Anion Gap 11 (12-20); Blood Urea Nitrogen 11 mg/dL (9-16); Calcium 8.9 mg/dL (8.4-10.2); Carbon Dioxide 27 mmol/L (22-29); Chloride 107 mmol/L (96-108); Creatinine Clr Calc Pharmacy 104.8; Estimated Glomerular Filt Rate > 60; Glucose Fasting 112 mg/dL (60-99); Potassium 4.1 mmol/L (3.3-5.1); Sodium 141 mmol/L (135-145)
[2024-11-07] MEDS: vancomycin HCL 1,250 MG in 0.9 % Sodium Chloride 250 ML 166.67 MG IV (06:24)
[2024-11-07 07:47] VITALS: BP 129/61; PULSE 53; RESP 18; TEMP 36.8; O2SAT 96
[2024-11-07] MEDS: hydroCHLOROthiazide 12.5 MG TABLET PO (08:51)
[2024-11-07] MEDS: 0.9 % Sodium Chloride Flush 10 ML SYRINGE 5 ML IVFLUSH (08:52)
[2024-11-07 11:47] VITALS: BP 115/56; PULSE 57; RESP 16; TEMP 36.9; O2SAT 96
--- NOTE | 2024-11-07 14:57 | MHC.CM.PN ---
IMM 11/07/24 Patient discharged to home with IV Vanco Q12H. [facility] The Patient did very well. [facility] and [facility] will provide home services. Patient arranged for transportation home.
--- NOTE | 2024-11-10 16:18 | P.OP_ITS ---
Operative Note Operative Note Date of Service: 11/03/24 Narrative: Date of Service: 11/03/24 Pre-op diagnosis: Infected right knee Post-op diagnosis: same Procedure: Irrigation and debridement right knee Surgeon: Christiano Celis MD Anesthesia: GLMA and local Was an Anesthesiologist Physician used for this Procedure?: Yes Anesthesiologist Physician: Maureen Huerta Estimated blood loss (mL): 100 IV fluids (mL): 750 Pathology: other Condition: stable Disposition: PACU Procedure in detail: Patient was brought to the operating room and placed supine on the surgical table. He was prepped and draped in standard sterile fashion and a time out was called to identify proper site, proper procedure and IV antibiotics per weight were administered. I began by opening up the proximal 3 cm of the incision. There was extensive purulence with gross contamination present. The wound tracked down to the distal quad which was displaced and remained intact through the medial and lateral retinacular fibers. I opened the wound of further and removed all the purulent debris. I then re-examined the distal quad. There was FiberWire suture which had cut out from the patella. I removed this and irrigated extensively with 6 L of warm saline and pulse lavage. I removed all necrotic debris and debrided the area with a combination of curette and rongeur. I was able to visualize the patella femoral joint which had been covered in fibrous capsular tissue but for the most part was exposed. This was additionally irrigated with 3 L of warm saline. There were suture anchors in the patella that I could not visualize and had been covered by bony overgrowth. I left these in place. I then closed the wound with nylon and left Kerlix packing in the wound. A compression dressing was applied and the patient was extubated and brought to recovery room. There were no known complications.
--- NOTE | 2024-11-17 17:07 | P.CDIM_ITS ---
PROVIDER RESPONSE TEXT: To clarify, the appropriate diagnosis supported by the clinical indicators: Excisional debridement: Necrotic tissue and suture were excised with a combination of rongeur, curret te and suction. QUERY TEXT: PHYSICIAN'S DOCUMENTATION REQUEST Date of Query: 11/14/2024 01:17 PM EDT Patient Name: Jorge Guardado Admit Date: 11/02/2024 Dear Christiano Celis MD, A review of the medical record indicates additional documentation may be needed. Please review below and update the documentation accordingly. Clinical Indicators: patient underwent an irrigation and debridement right knee on 11/03/24 a combination of curette and rongeur was used as well as irrigation with warm saline Could you provide further clarification regarding the depth and nature of the debridement? Excisional debridement Please also address the Type of instrument used, What was excised, Depth of debridement, and Size and appearance of the wound as able Non-excisional debridement Please also address the Depth of debridement, and Size and appearance of the wound as able Other (explain) Clinically unable to determine (explain) Thank you, Tasia Romero RN Use of terms such as suspected, likely, concern for, or probable (associated with a specific diagnosi s that is being evaluated, monitored, or treated as if it exists) are acceptable and can be coded in the inpatient se tting, when documented at the time of discharge. Please use your independent medical judgment in providing your response. THIS QUERY IS PART OF THE PERMANENT MEDICAL RECORD
== END 2024-11-07 15:39 | disposition home health service (06) | DRG 857 ==
LOC: HO.ED 16:40 → HO.EDOVER 16:54 → HO.S3 11-03 10:27
PROVIDERS: Nurse Practitioner Family; Orthopaedic Surgery; Physician Assistant Medical; Emergency Provider Emergency Medicine; PCP Nurse Practitioner Family
PROC: 0YBF0ZZ Excision of Right Knee Region, Open Approach (ICD-10-PCS; principal; 2024-11-03 14:30)
DX: T81.42XA Infection following a procedure, deep incisional surgical site, initial encounter (principal); I96 Gangrene, not elsewhere classified; L03.116 Cellulitis of left lower limb; I10 Essential (primary) hypertension; I44.0 Atrioventricular block, first degree; D64.9 Anemia, unspecified; E66.9 Obesity, unspecified; Z68.33 Body mass index [BMI] 33.0-33.9, adult; Z71.3 Dietary counseling and surveillance; M10.9 Gout, unspecified; E78.5 Hyperlipidemia, unspecified; E03.8 Other specified hypothyroidism; Z79.899 Other long term (current) drug therapy
CPT/HCPCS: 36415; 36573; 80048; 80076; 80202; 83036; 83735; 84439; 84443; 85025; 85652; 86140; 86850; 86900; 86901; 87040; 93005; 97116; 97162; 97165; 97530; 99285; C1751; J0131; J1171; J1650; J2003; J2405; J2704; J2795; J3010; J3370; J3371; J7120

== ENCOUNTER 2024-11-02 16:35 | Outpatient (BNV) | payer MEDICARE, SELFPAY | END 2024-11-03 08:11 | PROVIDERS: Emergency Provider Emergency Medicine; PCP Nurse Practitioner Family; Visit Provider Internal Medicine Cardiovascular Disease | DX: R00.1 Bradycardia, unspecified (principal); R94.31 Abnormal electrocardiogram [ECG] [EKG] | CPT/HCPCS: 93010 ==

== ENCOUNTER → 2024-11-02 16:35 | Outpatient (BNV) | payer MEDICARE, SELFPAY | PROVIDERS: Emergency Provider Emergency Medicine; PCP Nurse Practitioner Family | DX: T81.49XA Infection following a procedure, other surgical site, initial encounter (principal); L03.116 Cellulitis of left lower limb | CPT/HCPCS: 99024 ==

== ENCOUNTER → 2024-11-02 16:35 | Outpatient (BNV) | payer MEDICARE, SELFPAY | PROVIDERS: Emergency Provider Emergency Medicine; PCP Nurse Practitioner Family; Visit Provider Internal Medicine | DX: S76.111A Strain of right quadriceps muscle, fascia and tendon, initial encounter (principal); T81.49XA Infection following a procedure, other surgical site, initial encounter | CPT/HCPCS: 99222 ==

== ENCOUNTER → 2024-11-02 16:35 | Outpatient (BNV) | payer MEDICARE, SELFPAY | PROVIDERS: Emergency Provider Emergency Medicine; PCP Nurse Practitioner Family; Visit Provider Nurse Practitioner Family | DX: L03.116 Cellulitis of left lower limb (principal); I44.0 Atrioventricular block, first degree; S76.111A Strain of right quadriceps muscle, fascia and tendon, initial encounter; D64.9 Anemia, unspecified; I10 Essential (primary) hypertension; M1A.0790 Idiopathic chronic gout, unspecified ankle and foot, without tophus (tophi); E78.5 Hyperlipidemia, unspecified; E03.8 Other specified hypothyroidism; E66.811 Obesity, class 1; E66.09 Other obesity due to excess calories; Z68.33 Body mass index [BMI] 33.0-33.9, adult | CPT/HCPCS: 99222 ==

== ENCOUNTER 2024-11-09 09:48 | Outpatient (REF) | payer MEDICARE, SELFPAY ==
[2024-11-09 10:58] LABS: Vancomycin Trough 20.1 mcg/mL (10.0-20.0)
== END 2024-11-09 09:49 | disposition home or self-care (01) ==
LOC: HO.LNP 09:48
PROVIDERS: Visit Provider Internal Medicine
DX: B99.9 Unspecified infectious disease (principal); Z79.2 Long term (current) use of antibiotics
CPT/HCPCS: 80202

== ENCOUNTER 2024-11-16 10:18 | Outpatient (REF) | payer MEDICARE, SELFPAY ==
--- OUTSIDE RECORDS SUMMARY | 2024-11-16 11:11 | XMS_ITS | Clinical Summary ---
Author Organization [facility] Address [address] [place] [address] Phone Care Team Providers Care Mixer Lever Operator Name Role Phone Fausto Pat NP [...] day. 30 each 10/20/19 25 025 Active docusate sodium (COLACE) 100 mg capsule Take 1 capsule (100 mg total) by mouth 2 (two) times a day. 025 Discontinued oxyCODONE (ROXICODONE) 5 mg immediate release tablet Take 1 tablet (5 mg total) by mouth every 4 (four) hours if needed for moderate pain. Max Daily Amount: 30 mg 025 Discontinued(St op Taking at Discharge) allopurinoL (ZYLOPRIM) [...] 2 (two) times a day. 025 Discontinued atorvastatin (LIPITOR) 20 mg tablet Take 1 tablet (20 mg total) by mouth at bedtime. 10/17/19 025 Discontinued multivitamin tablet Take 1 tablet by mouth 1 (one) time each day. 10/18/19 025 Discontinued Active Problems Problem Noted Date Diagnosed Date Quadriceps tendon rupture, right, initial encoun ter 10/16/2024 Encounters Date Type Department Care Team Description 10/18/2024 Plan of Care Documentation [facility] [address] [place] [id number] 10/16/2024 4:33 PM EST - 10/19/2024 11:05 AM EST Hospital Encounter [facility] [address] [place] [phone] Cynthia Bentley, DO Discharge Disposition: Home or Self Care 10/10/2024 Lab Requisition [facility] - Main Lab [address] [facility] [place] [address] Sara Blanc MD Encounter for other general examination 10/05/2024 Lab Requisition [facility] - Main Lab [address] Count Includes [facility] [place] [address] Sara Blanc MD Encounter for [...] (1 - Tdap) 1972 Pneumococcal Vaccine: 50+ Years (1 of 1 - PCV) 2003 Zoster Vaccines (1 of 2) 2003 COVID-19 Vaccine ( - 2023-2 5 season) 2024 Influenza Vaccine (#1) 2024 Cholesterol Screening (Lipid Panel) 10/04/2024 Colorectal Cancer Screening: Colonoscopy 10/04/2024 Hepatitis C Screening 10/04/2024 Medicare Annual Wellness Visit 10/04/2024 Hypertension/CHF/CAD Annual BMP Blood Test 10/17/2025 10/17/2024, 10/10/2024, 10/05/2024 Depression Screening 10/18/2025 10/18/2024 Social Influencers of Health Screening 10/18/2025 10/18/2024 Falls Risk Assessment 10/19/2025 10/19/2024 RSV Immunization Adult Patients (1 - 1-dose 75+ series) 2028 HIB [...] to complete this topic RSV Immunization Patients Under 20 months Aged Out No longer eligible [...] - 100 mg/dL 10/17/2024 11:23 AM EST [facility] Blood Capillary blood specimen / Unknown 10/17/2024 11:23 AM EST 10/17/2024 11:26 AM EST Cynthia Bentley DO LAB POINT OF CARE TEST DOCKED DEVICE UNSOLICITED RESULTS Final Result Performing Organization Address [facility]/State/ZIP Co de Phone Number [facility] [address] [place] [address], * (ABNORMAL) CBC auto differential (10/17/2024 5:46 AM EST) Only the most recent of2 resultswithin the time period is included. WBC 9.8 4.8 - 10.8 K/mcL LAB HEMETOLOGY METHOD 10/17/2024 6:14 AM [facility] RBC 3.90(L) 4.50 - 5.50 M/mcL LAB HEMETOLOGY METHOD 10/17/2024 6:14 AM [facility] Hemoglobin 13.0(L) 13.5 - 17.5 g/dL LAB HEMETOLOGY METHOD 10/17/2024 6:14 AM [facility] Hematocrit 37.4(L) 42.0 - 54.0 % LAB HEMETOLOGY METHOD 10/17/2024 6:14 AM [facility] MCV 96.9 79.0 - 98.0 FL LAB HEMETOLOGY METHOD 10/17/2024 6:14 AM [facility] MCH 33.7(H) 27.0 - 32.0 pcg LAB HEMETOLOGY METHOD 10/17/2024 6:14 AM [facility] MCHC 34.8 32.0 - 37.0 g/dL LAB HEMETOLOGY METHOD 10/17/2024 6:14 AM [facility] RDW 12.9 11.0 - 15.0 % LAB HEMETOLOGY METHOD 10/17/2024 6:14 AM [facility] Platelets 228 130 - 400 K/mcL LAB HEMETOLOGY METHOD 10/17/2024 6:14 AM [facility] MPV 10.8 7.0 - 11.0 FL LAB HEMETOLOGY METHOD 10/17/2024 6:14 AM [facility] NRBC 0.0 <1.0 % LAB HEMETOLOGY METHOD 10/17/2024 6:14 AM [facility] NRBC Absolute 0.00 <0.10 K/mcL LAB HEMETOLOGY METHOD 10/17/2024 6:14 AM [facility] Neutrophils Relative 64.4 % LAB HEMETOLOGY METHOD 10/17/2024 6:14 AM [facility] Lymphocytes Relative 18.1 % LAB HEMETOLOGY METHOD 10/17/2024 6:14 AM [facility] Monocytes Relative 8.9 % LAB HEMETOLOGY METHOD 10/17/2024 6:14 AM [facility] Eosinophils Relative 7.0 % LAB HEMETOLOGY METHOD 10/17/2024 6:14 AM [facility] Basophils Relative 1.2 % LAB HEMETOLOGY METHOD 10/17/2024 6:14 AM [facility] Immature Granulocytes Relative 0.4 % LAB HEMETOLOGY METHOD 10/17/2024 6:14 AM [facility] Neutrophils Absolute 6.31 1.50 - 7.00 K/mcL LAB HEMETOLOGY METHOD 10/17/2024 6:14 AM [facility] Lymphocytes Absolute 1.78 1.00 - 5.00 K/mcL LAB HEMETOLOGY METHOD 10/17/2024 6:14 AM [facility] Monocytes Absolute 0.87 0.20 - 1.00 K/mcL LAB HEMETOLOGY METHOD 10/17/2024 6:14 AM [facility] Eosinophils Absolute 0.69(H) 0.00 - 0.50 K/mcL LAB HEMETOLOGY METHOD 10/17/2024 6:14 AM [facility] Basophils Absolute 0.12 0.00 - 0.20 K/mcL LAB HEMETOLOGY METHOD 10/17/2024 6:14 AM [facility] Immature Granulocytes Absolute 0.04(H) 0.00 - 0.03 K/mcL LAB HEMETOLOGY METHOD 10/17/2024 6:14 AM [facility] Blood Venous blood specimen / Unknown Venipuncture / Unknown 10/17/2024 5:46 AM EST 10/17/2024 6:04 AM EST us Moshe HICKEY LAB BLOOD ORDERABLES Final Re sult [facility] [address] [place] [address], * (ABNORMAL) Comprehensive metabolic panel (10/17/2024 5:46 AM EST) Only the most recent of3 resultswithin the time period is included. Sodium 138 133 - 145 mmol/L LAB CHEMISTRY METHOD 10/17/2024 6:32 AM [facility] Potassium 4.2 3.5 - 5.5 mmol/L LAB CHEMISTRY METHOD 10/17/2024 6:32 AM [facility] Chloride 105 96 - 110 mmol/L LAB CHEMISTRY METHOD 10/17/2024 6:32 AM [facility] CO2 27 21 - 32 mmol/L LAB CHEMISTRY METHOD 10/17/2024 6:32 AM [facility] Anion Gap 6 3 - 11 LAB CHEMISTRY METHOD 10/17/2024 6:32 AM [facility] Glucose 107(H) 70 - 100 mg/dL LAB CHEMISTRY METHOD 10/17/2024 6:32 AM [facility] BUN 19 5 - 25 mg/dL LAB CHEMISTRY METHOD 10/17/2024 6:32 AM [facility] Creatinine 1.08 0.70 - 1.30 mg/dL LAB CHEMISTRY METHOD 10/17/2024 6:32 AM [facility] eGFR 73 >=60 mL/min/1. 73m2 LAB CHEMISTRY METHOD 10/17/2024 6:32 AM [facility] Comment:Calculation based on the??Chronic Kidney Disease Epidemiology Collaboration (CKD-EPI) equation refit??without adjustment for race. BUN/Creatinine Ratio 17.6 LAB CHEMISTRY METHOD 10/17/2024 6:32 AM [facility] Calcium 9.1 8.5 - 10.5 mg/dL LAB CHEMISTRY METHOD 10/17/2024 6:32 AM [facility] AST (SGOT) 17 10 - 42 unit/L LAB CHEMISTRY METHOD 10/17/2024 6:32 AM [facility] ALT (SGPT) 30 10 - 60 unit/L LAB CHEMISTRY METHOD 10/17/2024 6:32 AM [facility] Alkaline Phosphatase 76 42 - 121 unit/L LAB CHEMISTRY METHOD 10/17/2024 6:32 AM [facility] Total Protein 6.3 6.0 - 8.0 g/dL LAB CHEMISTRY METHOD 10/17/2024 6:32 AM [facility] Albumin 2.9(L) 3.2 - 5.0 g/dL LAB CHEMISTRY METHOD 10/17/2024 6:32 AM [facility] Total Bilirubin 0.9 0.0 - 1.4 mg/dL LAB CHEMISTRY METHOD 10/17/2024 6:32 AM [facility] Blood Venous blood specimen / Unknown Venipuncture / Unknown 10/17/2024 5:46 AM EST 10/17/2024 6:04 AM EST us Moshe HICKEY LAB BLOOD ORDERABLES Final Re sult [facility] [address] [place] [address], * (ABNORMAL) Complete blood count (10/10/2024 7:22 AM EST) [facility] WBC 9.1 4.8 - 10.8 K/mcL LAB HEMETOLOGY METHOD 10/10/2024 11:49 AM [facility] RBC 4.40(L) 4.50 - 5.50 M/mcL LAB HEMETOLOGY METHOD 10/10/2024 11:49 AM [facility] Hemoglobin 14.9 13.5 - 17.5 g/dL LAB HEMETOLOGY METHOD 10/10/2024 11:49 AM [facility] Hematocrit 44.3 42.0 - 54.0 % LAB HEMETOLOGY METHOD 10/10/2024 11:49 AM [facility] MCV 100.2(H) 79.0 - 98.0 FL LAB HEMETOLOGY METHOD 10/10/2024 11:49 AM [facility] MCH 33.7(H) 27.0 - 32.0 pcg LAB HEMETOLOGY METHOD 10/10/2024 11:49 AM [facility] MCHC 33.6 32.0 - 37.0 g/dL LAB HEMETOLOGY METHOD 10/10/2024 11:49 AM [facility] RDW 13.0 11.0 - 15.0 % LAB HEMETOLOGY METHOD 10/10/2024 11:49 AM [facility] Platelets 318 130 - 400 K/mcL LAB HEMETOLOGY METHOD 10/10/2024 11:49 AM [facility] MPV 11.8(H) 7.0 - 11.0 FL LAB HEMETOLOGY METHOD 10/10/2024 11:49 AM [facility] NRBC 0.0 <1.0 % LAB HEMETOLOGY METHOD 10/10/2024 11:49 AM [facility] NRBC Absolute 0.00 <0.10 K/mcL LAB HEMETOLOGY METHOD 10/10/2024 11:49 AM EST [facility] Blood Venous blood specimen / Unknown Venipuncture / Unknown 10/10/2024 7:22 AM EST 10/10/2024 11:30 AM EST Sara Blanc MD LAB BLOOD ORDERABLES Final Res ult [facility] [address] [place] [address], [place] [phone] * Magnesium (10/05/2024 5:24 AM EST) Magnesium 2.1 1.9 - 2.6 mg/dL LAB CHEMISTRY METHOD 10/05/2024 12:10 PM EST [facility] Blood Venous blood specimen / Unknown Venipuncture / Unknown 10/05/2024 5:24 AM EST 10/05/2024 10:54 AM EST Sara Blanc MD LAB BLOOD ORDERABLES Final Res ult [facility] [address] [place] [address], [place] [phone] from Last 3 Months Insurance MEDICARE [facility] Advance Directives Documents on File Type Date Recorded 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 Care Teams Mixer Lever Operator Relationship Specialty Start Date End Date [facility]ust[facility] Pat [facility] [address] [facility] [place] [facility] - General Family Medicine 10/17/24
--- OUTSIDE RECORDS SUMMARY | 2024-11-16 11:11 | XMS_ITS | Encounter Summary ---
Author Organization [facility] Address [address] [place] [address] Care Team Providers Care Supervisor Cab Name Role Phone Fausto Pat NP Primary Care Provider Encounter Details Date Type Department Care Team (Late st Contact Info) Description 10/10/2024 Lab Requisition [facility] - Main Lab [address] [place] [address] Sara Blanc MD [address] [place] [id number] Encounter for other general examination Social History [...] Complete blood count (10/10/2024 7:22 AM EST) [facility] WBC 9.1 4.8 - 10.8 K/mcL LAB HEMETOLOGY METHOD 10/10/2024 11:49 AM [facility] RBC 4.40(L) 4.50 - 5.50 M/mcL LAB HEMETOLOGY METHOD 10/10/2024 11:49 AM [facility] Hemoglobin 14.9 13.5 - 17.5 g/dL LAB HEMETOLOGY METHOD 10/10/2024 11:49 AM [facility] Hematocrit 44.3 42.0 - 54.0 % LAB HEMETOLOGY METHOD 10/10/2024 11:49 AM [facility] MCV 100.2(H) 79.0 - 98.0 FL LAB HEMETOLOGY METHOD 10/10/2024 11:49 AM [facility] MCH 33.7(H) 27.0 - 32.0 pcg LAB HEMETOLOGY METHOD 10/10/2024 11:49 AM [facility] MCHC 33.6 32.0 - 37.0 g/dL LAB HEMETOLOGY METHOD 10/10/2024 11:49 AM [facility] RDW 13.0 11.0 - 15.0 % LAB HEMETOLOGY METHOD 10/10/2024 11:49 AM [facility] Platelets 318 130 - 400 K/mcL LAB HEMETOLOGY METHOD 10/10/2024 11:49 AM [facility] MPV 11.8(H) 7.0 - 11.0 FL LAB HEMETOLOGY METHOD 10/10/2024 11:49 AM [facility] NRBC 0.0 <1.0 % LAB HEMETOLOGY METHOD 10/10/2024 11:49 AM [facility] NRBC Absolute 0.00 <0.10 K/mcL LAB HEMETOLOGY METHOD 10/10/2024 11:49 AM [facility] Blood Venous blood specimen / Unknown Venipuncture / Unknown 10/10/2024 7:22 AM EST 10/10/2024 11:30 AM EST us Sara Blanc MD LAB BLOOD ORDERABLES Final Res ult [facility] [address] [place] [address], [place] [phone] * Comprehensive metabolic panel (10/10/2024 7:22 AM EST) Sodium 139 133 - 145 mmol/L LAB CHEMISTRY METHOD 10/10/2024 1:03 PM [facility] Potassium 4.2 3.5 - 5.5 mmol/L LAB CHEMISTRY METHOD 10/10/2024 1:03 PM [facility] Chloride 103 96 - 110 mmol/L LAB CHEMISTRY METHOD 10/10/2024 1:03 PM [facility] CO2 31 21 - 32 mmol/L LAB CHEMISTRY METHOD 10/10/2024 1:03 PM [facility] Anion Gap 5 3 - 11 LAB CHEMISTRY METHOD 10/10/2024 1:03 PM [facility] Glucose 81 70 - 100 mg/dL LAB CHEMISTRY METHOD 10/10/2024 1:03 PM [facility] BUN 18 5 - 25 mg/dL LAB CHEMISTRY METHOD 10/10/2024 1:03 PM [facility] Creatinine 0.93 0.70 - 1.30 mg/dL LAB CHEMISTRY METHOD 10/10/2024 1:03 PM [facility] eGFR 88 >=60 mL/min/1. 73m2 LAB CHEMISTRY METHOD 10/10/2024 1:03 PM [facility] Comment:Calculation based on the??Chronic Kidney Disease Epidemiology Collaboration (CKD-EPI) equation refit??without adjustment for race. BUN/Creatinine Ratio 19.4 LAB CHEMISTRY METHOD 10/10/2024 1:03 PM [facility] Calcium 9.6 8.5 - 10.5 mg/dL LAB CHEMISTRY METHOD 10/10/2024 1:03 PM [facility] AST (SGOT) 33 10 - 42 unit/L LAB CHEMISTRY METHOD 10/10/2024 1:03 PM [facility] ALT (SGPT) 39 10 - 60 unit/L LAB CHEMISTRY METHOD 10/10/2024 1:03 PM [facility] Alkaline Phosphatase 90 42 - 121 unit/L LAB CHEMISTRY METHOD 10/10/2024 1:03 PM [facility] Total Protein 7.3 6.0 - 8.0 g/dL LAB CHEMISTRY METHOD 10/10/2024 1:03 PM [facility] Albumin 3.6 3.2 - 5.0 g/dL LAB CHEMISTRY METHOD 10/10/2024 1:03 PM [facility] Total Bilirubin 1.4 0.0 - 1.4 mg/dL LAB CHEMISTRY METHOD 10/10/2024 1:03 PM [facility] Blood Venous blood specimen / Unknown Venipuncture / Unknown 10/10/2024 7:22 AM EST 10/10/2024 11:30 AM EST us Sara Blanc MD LAB BLOOD ORDERABLES Final Res ult [facility] [address] [place] [address], documented in this encounter Visit Diagnoses Diagnosis Encounter for other general examination documented in this encounter Care Teams Supervisor Cab Relationship Specialty Start Date End Date Fausto Pat NP [address] [place], [place] PCP - General Family Medicine 10/17/24 documented as of this encounter
--- OUTSIDE RECORDS SUMMARY | 2024-11-16 11:11 | XMS_ITS | Encounter Summary ---
Author Organization [facility] Address [address] [place] [address] Care Team Providers Care University Services Program Associate Name Role Phone Fausto Pat NP Primary Care Provider Encounter Details Date Type Department Care Team (Late st Contact Info) Description 10/05/[address] [facility] - Main Lab [address] [facility] [place] [address] Sara Blanc MD [address] [place] [phone] Encounter for other general examination Social History [...] CBC auto differential (10/05/2024 5:24 AM EST) [facility] Signature WBC 10.0 4.8 - 10.8 K/mcL LAB HEMETOLOGY METHOD 10/05/2024 11:[address] [facility] RBC 4.30(L) 4.50 - 5.50 M/mcL LAB HEMETOLOGY METHOD 10/05/2024 11:[address] [facility] Hemoglobin 14.3 13.5 - 17.5 g/dL LAB HEMETOLOGY METHOD 10/05/2024 11:[address] [facility] Hematocrit 42.4 42.0 - 54.0 % LAB HEMETOLOGY METHOD 10/05/2024 11:[address] [facility] MCV 99.3(H) 79.0 - 98.0 FL LAB HEMETOLOGY METHOD 10/05/2024 11:[address] [facility] MCH 33.5(H) 27.0 - 32.0 pcg LAB HEMETOLOGY METHOD 10/05/2024 11:[address] [facility] MCHC 33.7 32.0 - 37.0 g/dL LAB HEMETOLOGY METHOD 10/05/2024 11:[address] [facility] RDW 13.1 11.0 - 15.0 % LAB HEMETOLOGY METHOD 10/05/2024 11:[address] [facility] Platelets 322 130 - 400 K/mcL LAB HEMETOLOGY METHOD 10/05/2024 11:[address] [facility] MPV 10.9 7.0 - 11.0 FL LAB HEMETOLOGY METHOD 10/05/2024 11:[address] [facility] NRBC 0.0 <1.0 % LAB HEMETOLOGY METHOD 10/05/2024 11:[address] [facility] NRBC Absolute 0.00 <0.10 K/mcL LAB HEMETOLOGY METHOD 10/05/2024 11:[address] [facility] Neutrophils Relative 72.7 % LAB HEMETOLOGY METHOD 10/05/2024 11:[address] [facility] Lymphocytes Relative 11.5 % LAB HEMETOLOGY METHOD 10/05/2024 11:[address] [facility] Monocytes Relative 9.5 % LAB HEMETOLOGY METHOD 10/05/2024 11:[address] [facility] Eosinophils Relative 4.7 % LAB HEMETOLOGY METHOD 10/05/2024 11:[address] [facility] Basophils Relative 1.1 % LAB HEMETOLOGY METHOD 10/05/2024 11:[address] [facility] Immature Granulocytes Relative 0.5 % LAB HEMETOLOGY METHOD 10/05/2024 11:[address] [facility] Neutrophils Absolute 7.28(H) 1.50 - 7.00 K/mcL LAB HEMETOLOGY METHOD 10/05/2024 11:[address] [facility] Lymphocytes Absolute 1.15 1.00 - 5.00 K/mcL LAB HEMETOLOGY METHOD 10/05/2024 11:[address] [facility] Monocytes Absolute 0.95 0.20 - 1.00 K/mcL LAB HEMETOLOGY METHOD 10/05/2024 11:[address] [facility] Eosinophils Absolute 0.47 0.00 - 0.50 K/mcL LAB HEMETOLOGY METHOD 10/05/2024 11:[address] [facility] Basophils Absolute 0.11 0.00 - 0.20 K/mcL LAB HEMETOLOGY METHOD 10/05/2024 11:[address] [facility] Immature Granulocytes Absolute 0.05(H) 0.00 - 0.03 K/mcL LAB HEMETOLOGY METHOD 10/05/2024 11:37 AM EST [facility] Blood Venous blood specimen / Unknown Venipuncture / Unknown 10/05/2024 5:24 AM EST 10/05/2024 10:54 AM EST Sara Blanc MD LAB BLOOD ORDERABLES Final Res ult [facility] [address] [place] [address], [place] [phone] * Magnesium (10/05/2024 5:24 AM EST) Magnesium 2.1 1.9 - 2.6 mg/dL LAB CHEMISTRY METHOD 10/05/2024 12:[address] [facility] Blood Venous blood specimen / Unknown Venipuncture / Unknown 10/05/2024 5:24 AM EST 10/05/2024 10:54 AM EST Sara Blanc MD LAB BLOOD ORDERABLES Final Res ult [facility] [address] [place] [address], [place] [phone] * (ABNORMAL) Comprehensive metabolic panel (10/05/2024 5:24 AM EST) Sodium 139 133 - 145 mmol/L LAB CHEMISTRY METHOD 10/05/2024 12:[address] [facility] Potassium 4.1 3.5 - 5.5 mmol/L LAB CHEMISTRY METHOD 10/05/2024 12:[address] [facility] Chloride 103 96 - 110 mmol/L LAB CHEMISTRY METHOD 10/05/2024 12:[address] [facility] CO2 26 21 - 32 mmol/L LAB CHEMISTRY METHOD 10/05/2024 12:[address] [facility] Anion Gap 10 3 - 11 LAB CHEMISTRY METHOD 10/05/2024 12:[address] [facility] Glucose 82 70 - 100 mg/dL LAB CHEMISTRY METHOD 10/05/2024 12:[address] [facility] BUN 17 5 - 25 mg/dL LAB CHEMISTRY METHOD 10/05/2024 12:[address] [facility] Creatinine 0.97 0.70 - 1.30 mg/dL LAB CHEMISTRY METHOD 10/05/2024 12:[address] [facility] eGFR 83 >=60 mL/min/1. 73m2 LAB CHEMISTRY METHOD 10/05/2024 12:[address] [facility] Comment:Calculation based on the??Chronic Kidney Disease Epidemiology Collaboration (CKD-EPI) equation refit??without adjustment for race. BUN/Creatinine Ratio 17.5 LAB CHEMISTRY METHOD 10/05/2024 12:[address] [facility] Calcium 9.1 8.5 - 10.5 mg/dL LAB CHEMISTRY METHOD 10/05/2024 12:[address] [facility] AST (SGOT) 25 10 - 42 unit/L LAB CHEMISTRY METHOD 10/05/2024 12:[address] [facility] ALT (SGPT) 35 10 - 60 unit/L LAB CHEMISTRY METHOD 10/05/2024 12:[address] [facility] Alkaline Phosphatase 83 42 - 121 unit/L LAB CHEMISTRY METHOD 10/05/2024 12:[address] [facility] Total Protein 6.8 6.0 - 8.0 g/dL LAB CHEMISTRY METHOD 10/05/2024 12:[address] [facility] Albumin 3.3 3.2 - 5.0 g/dL LAB CHEMISTRY METHOD 10/05/2024 12:[address] [facility] Total Bilirubin 1.5(H) 0.0 - 1.4 mg/dL LAB CHEMISTRY METHOD 10/05/2024 12:[address] [facility] Blood Venous blood specimen / Unknown Venipuncture / Unknown 10/05/2024 5:24 AM EST 10/05/2024 10:54 AM EST us Sara Blanc MD LAB BLOOD ORDERABLES Final Res ult Performing Organization Address City/State/[facility] Co de Phone Number [facility] ([facility]) [facility] [address] [place] [address], documented in this encounter Visit Diagnoses Diagnosis Encounter for other general examination documented in this encounter Care Teams University Services Program Associate Relationship Specialty Start Date End Date Fausto Pat NP [address] [place], [place] PCP - General Family Medicine 10/17/24 documented as of this encounter
[2024-11-16 11:23] LABS: Vancomycin Trough 16.7 mcg/mL (10.0-20.0)
== END 2024-11-16 10:19 | disposition home or self-care (01) ==
LOC: HO.HVNA 10:18
PROVIDERS: Visit Provider Internal Medicine
DX: T81.41XA Infection following a procedure, superficial incisional surgical site, initial encounter (principal)
CPT/HCPCS: 36415; 80202

== ENCOUNTER 2024-11-23 10:44 | Outpatient (REF) | payer MEDICARE, SELFPAY ==
[2024-11-23 10:46] LABS: MANUAL DIFF FLAG NO
[2024-11-23 11:00] LABS: Basophils Absolute Auto 0.1 X10*3/uL (0.0-0.2); Basophils Percent Auto 1.5 % (0-2); Eosinophils Absolute Auto 0.6 X10*3/uL (0.0-0.4); Eosinophils Percent Auto 7.1 % (0-4); Hematocrit 36.9 % (42.0-52.0); Hemoglobin 13.2 g/dl (14.0-18.0); Imm Gran Abs Auto 0.03 X10*3/uL (0.00-0.03); Imm Gran Pct Auto 0.3 % (0.0-0.4); Lymphocytes Absolute Auto 1.1 X10*3/uL (1.2-4.9); Lymphocytes Percent Auto 12.4 % (20-40); Mean Corpuscular HGB Conc 35.8 g/dl (31.0-36.0); Mean Corpuscular Hemoglobin 32.3 pg (27.0-33.0); Mean Corpuscular Volume 90.2 fL (80.0-98.0); Mean Platelet Volume 10.9 fL (9.4-12.4); Monocytes Absolute Auto 0.8 X10*3/uL (0.1-1.2); Monocytes Percent Auto 8.4 % (2-11); Neutrophils Absolute Auto 6.4 x10*3/uL (2.0-8.3); Neutrophils Percent Auto 70.3 % (45-73); Platelet Count 308 X10*3/uL (160-400); Red Blood Count 4.09 X10*6/uL (4.60-5.80); Red Cell Distribution Width 13.6 % (11.0-16.0); White Blood Count 9.1 X10*3/uL (4.8-10.8)
[2024-11-23 11:55] LABS: Alanine Aminotransferase 23 U/L (0-40); Albumin Level 3.9 g/dL (3.5-5.0); Alkaline Phosphatase 84 U/L (39-117); Anion Gap 15 (12-20); Aspartate Amino Transferase 22 U/L (5-37); Bilirubin Total 0.7 mg/dL (0.0-1.0); Blood Urea Nitrogen 21 mg/dL (9-16); Calcium 9.8 mg/dL (8.4-10.2); Carbon Dioxide 22 mmol/L (22-29); Chloride 108 mmol/L (96-108); Estimated Glomerular Filt Rate > 60; Glucose Random 123 mg/dL (60-115); Potassium 3.9 mmol/L (3.3-5.1); Sodium 141 mmol/L (135-145); Total Protein 7.6 g/dL (6.5-8.0)
[2024-11-23 11:57] LABS: Vancomycin Trough 12.7 mcg/mL (10.0-20.0)
--- OUTSIDE RECORDS SUMMARY | 2024-11-23 12:48 | XMS_ITS | Encounter Summary ---
Author Organization [facility] Address [address] [place] [address] Care Team Providers Care Curriculum Consultant Name Role Phone Fausto Pat NP Primary Care Provider [phone] Encounter Details Date Type Department Care Team (Late st Contact Info) Description 10/05/2024 Lab Requisition [facility] - Main Lab [address] [facility] [place] [address] Sara Blanc MD [address] [place] [id number] Encounter for other general examination Social History [...] CBC auto differential (10/05/2024 5:24 AM EST) [facility] Signature WBC 10.0 4.8 - 10.8 [...] LAB HEMETOLOGY METHOD 10/05/2024 11:37 AM EST [facility] Blood Venous blood specimen / Unknown Venipuncture / Unknown 10/05/2024 5:24 AM EST 10/05/2024 10:54 AM EST Sara Blanc MD LAB BLOOD ORDERABLES Final Res ult [facility] [address] [place] [address], [place] [phone] * Magnesium (10/05/2024 5:24 AM EST) Magnesium 2.1 1.9 - 2.6 mg/dL LAB CHEMISTRY METHOD 10/05/2024 12:10 PM [facility] Blood Venous blood specimen / Unknown Venipuncture / Unknown 10/05/2024 5:24 AM EST 10/05/2024 10:54 AM EST Sara Blanc MD LAB BLOOD ORDERABLES Final Res ult [facility] [address] [place] [address], [place] [phone] * (ABNORMAL) Comprehensive metabolic panel (10/05/2024 5:24 [...] ORDERABLES Final Res ult Performing Organization Address City/State/[facility] Co de Phone Number [facility] [address] [place] [address], documented in this encounter Visit Diagnoses Diagnosis Encounter for other general examination documented in this encounter Care Teams Curriculum Consultant Relationship Specialty Start Date End Date Fausto Pat NP [address] [place], [place] PCP - General Family Medicine 10/17/24 documented as of this encounter
--- OUTSIDE RECORDS SUMMARY | 2024-11-23 12:49 | XMS_ITS | Clinical Summary ---
Author Organization [facility] Address [address] [place] [address] Phone Care Team Providers Care Road Freight Conductor Name Role Phone Fausto Pat NP Primary Care Provider Allergies No known active allergies Medications acetaminophen (TYLENOL) 325 mg tablet Take 2 tablets (650 mg total) by mouth every 6 (six) hours if needed for mild pain, headaches or fever - temperature GREATER than 38 C (100.4 F). Active atorvastatin (LIPITOR) 20 mg tablet Take 1 tablet (20 mg total) by mouth at bedtime. 30 each 5 Active hydroCHLOROthia zide 12.5 mg tablet Take 1 tablet (12.5 mg total) by mouth 1 (one) time each day. 30 each 5 Active allopurinoL (ZYLOPRIM) 100 mg tablet Take 1 tablet (100 mg total) by mouth 1 (one) time each day. 30 each 5 11/19/19 25 celecoxib (CeleBREX) 200 mg capsule Take 1 capsule (200 mg total) by mouth 2 (two) times a day. 60 each 5 11/19/19 25 docusate sodium (COLACE) 100 mg capsule Take 1 capsule (100 mg total) by mouth 2 (two) times a day. 60 each 5 11/19/19 25 multivitamin tablet Take 1 tablet by mouth 1 (one) time each day. 30 each 5 11/19/19 25 enoxaparin (LOVENOX) 40 mg/0.4 mL syringeIndicati ons:DVTP Inject 0.4 mL (40 mg total) under the skin 1 (one) time each day. 30 each 5 11/19/19 Active Problems Problem Noted Date Diagnosed Date Quadriceps tendon rupture, right, initial encoun ter 10/16/2024 Encounters Date Type Department Care Team Description 10/18/2024 Plan of Care Documentation [facility] [address] [place] [address] 10/16/2024 4:33 PM EST - 10/19/2024 11:05 AM EST Hospital Encounter [facility] [address] [place] [address] Cynthia Bentley, Discharge Disposition: Home or Self Care 10/10/2024 Lab Requisition [facility] [address] [place] [address] Sara Blanc MD Encounter for other general examination 10/05/2024 Lab Requisition [facility] [address] [place] [address] Sara Blanc MD Encounter for other general [...] age to complete this topic Meningococcal B Vaccine Aged Out No l onger eligible based on patient's age to complete [...] of2 resultswithin the time period is included. [facility] Glucose POCT 106(H) 70 - 100 mg/dL 10/17/2024 11:23 AM EST [facility] Blood Capillary blood specimen / Unknown 10/17/2024 11:23 AM EST 10/17/2024 11:26 AM EST us Cynthia Bentley DO LAB POINT OF CARE TEST DOCKED DEVICE UNSOLICITED RESULTS Final Result [facility] [address] [place] [address], [place] [phone] * (ABNORMAL) CBC auto differential (10/17/2024 5:46 AM EST) Only the most recent of2 resultswithin the time period is included. [facility] WBC 9.8 4.8 - 10.8 K/mcL LAB HEMETOLOGY METHOD 10/17/2024 6:14 AM [facility] RBC 3.90(L) 4.50 - 5.50 M/mcL LAB HEMETOLOGY METHOD 10/17/2024 6:14 AM [facility] Hemoglobin 13.0(L) 13.5 - 17.5 g/dL LAB HEMETOLOGY METHOD 10/17/2024 6:14 AM [facility] Hematocrit 37.4(L) 42.0 - 54.0 % LAB HEMETOLOGY METHOD 10/17/2024 6:14 AM [facility] MCV 96.9 79.0 - 98.0 FL LAB HEMETOLOGY METHOD 10/17/2024 6:14 AM [facility] MCH 33.7(H) 27.0 - 32.0 pcg LAB HEMETOLOGY METHOD 10/17/2024 6:14 AM [facility] MCHC 34.8 32.0 - 37.0 g/dL LAB HEMETOLOGY METHOD 10/17/2024 6:14 AM [facility] RDW 12.9 11.0 - 15.0 % LAB HEMETOLOGY METHOD 10/17/2024 6:14 AM [facility] Platelets 228 130 - 400 K/mcL LAB HEMETOLOGY METHOD 10/17/2024 6:14 AM [facility] MPV 10.8 7.0 - 11.0 FL LAB HEMETOLOGY METHOD 10/17/2024 6:14 AM [facility] NRBC 0.0 <1.0 % LAB HEMETOLOGY METHOD 10/17/2024 6:14 AM [facility] NRBC Absolute 0.00 <0.10 K/mcL LAB HEMETOLOGY METHOD 10/17/2024 6:14 AM [facility] Neutrophils Relative 64.4 % LAB HEMETOLOGY METHOD 10/17/2024 6:14 AM [facility] Lymphocytes Relative 18.1 % LAB HEMETOLOGY METHOD 10/17/2024 6:14 AM [facility] Monocytes Relative 8.9 % LAB HEMETOLOGY METHOD 10/17/2024 6:14 AM [facility] Eosinophils Relative 7.0 % LAB HEMETOLOGY METHOD 10/17/2024 6:14 AM [facility] Basophils Relative 1.2 % LAB HEMETOLOGY METHOD 10/17/2024 6:14 AM [facility] Immature Granulocytes Relative 0.4 % LAB HEMETOLOGY METHOD 10/17/2024 6:14 AM EST [facility] Neutrophils Absolute 6.31 1.50 - 7.00 K/mcL LAB HEMETOLOGY METHOD 10/17/2024 6:14 AM EST [facility] Lymphocytes Absolute 1.78 1.00 - 5.00 K/mcL LAB HEMETOLOGY METHOD 10/17/2024 6:14 AM EST [facility] Monocytes Absolute 0.87 0.20 - 1.00 K/mcL LAB HEMETOLOGY METHOD 10/17/2024 6:14 AM EST [facility] Eosinophils Absolute 0.69(H) 0.00 - 0.50 K/mcL LAB HEMETOLOGY METHOD 10/17/2024 6:14 AM EST [facility] Basophils Absolute 0.12 0.00 - 0.20 K/mcL LAB HEMETOLOGY METHOD 10/17/2024 6:14 AM [facility] Immature Granulocytes Absolute 0.04(H) 0.00 - 0.03 K/[facility] LAB HEMETOLOGY METHOD 10/17/2024 6:14 AM EST [facility] Blood Venous blood specimen / Unknown Venipuncture / Unknown 10/17/2024 5:46 AM EST 10/17/2024 6:04 AM EST us Moshe HICKEY LAB BLOOD ORDERABLES Final Re sult [facility] [address] [place] [address], * (ABNORMAL) Comprehensive metabolic panel (10/17/2024 5:46 AM EST) Only the most recent of3 resultswithin the time period is included. Sodium 138 133 - 145 mmol/L LAB CHEMISTRY METHOD 10/17/2024 6:32 AM EST [facility] Potassium 4.2 3.5 - 5.5 mmol/L LAB CHEMISTRY METHOD 10/17/2024 6:32 AM [facility] Chloride 105 96 - 110 mmol/L LAB CHEMISTRY METHOD 10/17/2024 6:32 AM [facility] CO2 27 21 - 32 mmol/L LAB CHEMISTRY METHOD 10/17/2024 6:32 AM [facility] Anion Gap 6 3 - 11 LAB CHEMISTRY METHOD 10/17/2024 6:32 AM [facility] Glucose 107(H) 70 - 100 mg/dL LAB CHEMISTRY METHOD 10/17/2024 6:32 AM [facility] BUN 19 5 - 25 mg/dL LAB CHEMISTRY METHOD 10/17/2024 6:32 AM [facility] Creatinine 1.08 0.70 - 1.30 mg/dL LAB CHEMISTRY METHOD 10/17/2024 6:32 AM [facility] eGFR 73 >=60 mL/min/1. 73m2 LAB CHEMISTRY METHOD 10/17/2024 6:32 AM [facility] Comment:Calculation based on the??Chronic Kidney Disease Epidemiology Collaboration (CKD-EPI) equation refit??without adjustment for race. BUN/Creatinine Ratio 17.6 LAB CHEMISTRY METHOD 10/17/2024 6:32 AM [facility] Calcium 9.1 8.5 - 10.5 mg/dL LAB CHEMISTRY METHOD 10/17/2024 6:32 AM [facility] AST (SGOT) 17 10 - 42 unit/L LAB CHEMISTRY METHOD 10/17/2024 6:32 AM [facility] ALT (SGPT) 30 10 - 60 unit/L LAB CHEMISTRY METHOD 10/17/2024 6:32 AM [facility] Alkaline Phosphatase 76 42 - 121 unit/L LAB CHEMISTRY METHOD 10/17/2024 6:32 AM [facility] Total Protein 6.3 6.0 - 8.0 g/dL LAB CHEMISTRY METHOD 10/17/2024 6:32 AM [facility] Albumin 2.9(L) 3.2 - 5.0 g/dL LAB CHEMISTRY METHOD 10/17/2024 6:32 AM EST [facility] Total Bilirubin 0.9 0.0 - 1.4 mg/dL LAB CHEMISTRY METHOD 10/17/2024 6:32 AM [facility] Blood Venous blood specimen / Unknown Venipuncture / Unknown 10/17/2024 5:46 AM EST 10/17/2024 6:04 AM EST us Moshe HICKEY LAB BLOOD ORDERABLES Final Re sult [facility] [address] [place] [address], * (ABNORMAL) Complete blood count (10/10/2024 7:22 AM EST) WBC 9.1 4.8 - 10.8 K/mcL LAB HEMETOLOGY METHOD 10/10/2024 11:49 AM [facility] RBC 4.40(L) 4.50 - 5.50 M/mcL LAB HEMETOLOGY METHOD 10/10/2024 11:49 AM [facility] Hemoglobin 14.9 13.5 - 17.5 g/dL LAB HEMETOLOGY METHOD 10/10/2024 11:49 AM [facility] Hematocrit 44.3 42.0 - 54.0 % LAB HEMETOLOGY METHOD 10/10/2024 11:49 AM [facility] MCV 100.2(H) 79.0 - 98.0 FL LAB HEMETOLOGY METHOD 10/10/2024 11:49 AM [facility] MCH 33.7(H) 27.0 - 32.0 pcg LAB HEMETOLOGY METHOD 10/10/2024 11:49 AM [facility] MCHC 33.6 32.0 - 37.0 g/dL LAB HEMETOLOGY METHOD 10/10/2024 11:49 AM EST [facility] RDW 13.0 11.0 - 15.0 % LAB HEMETOLOGY METHOD 10/10/2024 11:49 AM [facility] Platelets 318 130 - 400 K/mcL LAB HEMETOLOGY METHOD 10/10/2024 11:49 AM [facility] MPV 11.8(H) 7.0 - 11.0 FL LAB HEMETOLOGY METHOD 10/10/2024 11:49 AM EST [facility] NRBC 0.0 <1.0 % LAB HEMETOLOGY METHOD 10/10/2024 11:49 AM [facility] NRBC Absolute 0.00 <0.10 K/mcL LAB HEMETOLOGY METHOD 10/10/2024 11:49 AM EST [facility] Blood Venous blood specimen / Unknown Venipuncture / Unknown 10/10/2024 7:22 AM EST 10/10/2024 11:30 AM EST Sara Blanc MD LAB BLOOD ORDERABLES Final Res ult [facility] [address] [place] [address], * Magnesium (10/05/2024 5:24 AM EST) Magnesium 2.1 1.9 - 2.6 mg/dL LAB CHEMISTRY METHOD 10/05/2024 12:10 PM EST [facility] Blood Venous blood specimen / Unknown Venipuncture / Unknown 10/05/2024 5:24 AM EST 10/05/2024 10:54 AM EST Sara Blanc MD LAB BLOOD ORDERABLES Final Res ult [facility] [address] [place] [address], [place] [phone] from Last 3 Months Insurance MEDICARE [facility] Advance Directives Documents on File Type Date Recorded 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 Care Teams Road Freight Conductor Relationship Specialty Start Date End Date Fausto Pat NP [address] [facility] [place] PCP - General Family Medicine 10/17/24
--- OUTSIDE RECORDS SUMMARY | 2024-11-23 12:49 | XMS_ITS | Encounter Summary ---
Author Organization [facility] Address [address] [place] [address] Care Team Providers Care Project Facilitator Name Role Phone Fausto Pat NP Primary Care Provider Encounter Details Date Type Department Care Team (Late st Contact Info) Description 10/10/2024 Lab Requisition [facility] - Main Lab [address] [place] [address] Sara Blanc MD [address] [place] [address] Encounter for other general examination Social History [...] Complete blood count (10/10/2024 7:22 AM EST) [facility] WBC 9.1 4.8 - 10.8 K/mcL LAB HEMETOLOGY METHOD 10/10/2024 11:49 AM [facility] RBC 4.40(L) 4.50 - 5.50 M/mcL LAB HEMETOLOGY METHOD 10/10/2024 11:49 AM [facility] Hemoglobin 14.9 13.5 - 17.5 g/dL LAB HEMETOLOGY METHOD 10/10/2024 11:49 AM [facility] Hematocrit 44.3 42.0 - 54.0 % LAB HEMETOLOGY METHOD 10/10/2024 11:49 AM [facility] MCV 100.2(H) 79.0 - 98.0 FL LAB HEMETOLOGY METHOD 10/10/2024 11:49 AM [facility] MCH 33.7(H) 27.0 - 32.0 pcg LAB HEMETOLOGY METHOD 10/10/2024 11:49 AM [facility] MCHC 33.6 32.0 - 37.0 g/dL LAB HEMETOLOGY METHOD 10/10/2024 11:49 AM [facility] RDW 13.0 11.0 - 15.0 % LAB HEMETOLOGY METHOD 10/10/2024 11:49 AM [facility] Platelets 318 130 - 400 K/mcL LAB HEMETOLOGY METHOD 10/10/2024 11:49 AM [facility] MPV 11.8(H) 7.0 - 11.0 FL LAB HEMETOLOGY METHOD 10/10/2024 11:49 AM [facility] NRBC 0.0 <1.0 % LAB HEMETOLOGY METHOD 10/10/2024 11:49 AM [facility] NRBC Absolute 0.00 <0.10 K/mcL LAB HEMETOLOGY METHOD 10/10/2024 11:49 AM [facility] Blood Venous blood specimen / Unknown Venipuncture / Unknown 10/10/2024 7:22 AM EST 10/10/2024 11:30 AM EST us Sara Blanc MD LAB BLOOD ORDERABLES Final Res ult [facility] [address] [place] [address], [place] [phone] * Comprehensive metabolic panel (10/10/2024 7:22 AM EST) Sodium 139 133 - 145 mmol/L LAB CHEMISTRY METHOD 10/10/2024 1:03 PM [facility] Potassium 4.2 3.5 - 5.5 mmol/L LAB CHEMISTRY METHOD 10/10/2024 1:03 PM [facility] Chloride 103 96 - 110 mmol/L LAB CHEMISTRY METHOD 10/10/2024 1:03 PM [facility] CO2 31 21 - 32 mmol/L LAB CHEMISTRY METHOD 10/10/2024 1:03 PM [facility] Anion Gap 5 3 - 11 LAB CHEMISTRY METHOD 10/10/2024 1:03 PM [facility] Glucose 81 70 - 100 mg/dL LAB CHEMISTRY METHOD 10/10/2024 1:03 PM [facility] BUN 18 5 - 25 mg/dL LAB CHEMISTRY METHOD 10/10/2024 1:03 PM [facility] Creatinine 0.93 0.70 - 1.30 mg/dL LAB CHEMISTRY METHOD 10/10/2024 1:03 PM [facility] eGFR 88 >=60 mL/min/1. 73m2 LAB CHEMISTRY METHOD 10/10/2024 1:03 PM [facility] Comment:Calculation based on the??Chronic Kidney Disease Epidemiology Collaboration (CKD-EPI) equation refit??without adjustment for race. BUN/Creatinine Ratio 19.4 LAB CHEMISTRY METHOD 10/10/2024 1:03 PM [facility] Calcium 9.6 8.5 - 10.5 mg/dL LAB CHEMISTRY METHOD 10/10/2024 1:03 PM [facility] AST (SGOT) 33 10 - 42 unit/L LAB CHEMISTRY METHOD 10/10/2024 1:03 PM [facility] ALT (SGPT) 39 10 - 60 unit/L LAB CHEMISTRY METHOD 10/10/2024 1:03 PM [facility] Alkaline Phosphatase 90 42 - 121 unit/L LAB CHEMISTRY METHOD 10/10/2024 1:03 PM [facility] Total Protein 7.3 6.0 - 8.0 g/dL LAB CHEMISTRY METHOD 10/10/2024 1:03 PM [facility] Albumin 3.6 3.2 - 5.0 g/dL LAB CHEMISTRY METHOD 10/10/2024 1:03 PM [facility] Total Bilirubin 1.4 0.0 - 1.4 mg/dL LAB CHEMISTRY METHOD 10/10/2024 1:03 PM [facility] Blood Venous blood specimen / Unknown Venipuncture / Unknown 10/10/2024 7:22 AM EST 10/10/2024 11:30 AM EST us Sara Blanc MD LAB BLOOD ORDERABLES Final Res ult [facility] [address] [place] [address], documented in this encounter Visit Diagnoses Diagnosis Encounter for other general examination documented in this encounter Care Teams Project Facilitator Relationship Specialty Start Date End Date Fausto Pat NP [address] [place], [place] PCP - General Family Medicine 10/17/24 documented as of this encounter
== END 2024-11-23 10:45 | disposition home or self-care (01) ==
LOC: HO.HVNA 10:44
PROVIDERS: Visit Provider Internal Medicine
DX: T81.49XA Infection following a procedure, other surgical site, initial encounter (principal); S76.111A Strain of right quadriceps muscle, fascia and tendon, initial encounter
CPT/HCPCS: 36415; 80053; 80202; 85025; 99212

== ENCOUNTER 2024-11-23 12:59 | Outpatient (AMB) | payer MEDICARE, SELFPAY ==
--- NOTE | 2024-11-23 13:04 | MHC.OFFVIS ---
Intake Visit Reasons: PO RT knee explor/poss quad ten repair 10/13/24 NE Intake Note: Jorge is a 69 year old male who presents today for a post operative appointment s/p RT knee explor/poss quad ten repair 10/13/24. Right Quad Tendon Repair 09/29/24. Patient reports that he is doing well, he has began weight bearing and utilizes cruches. Denies pain. Allergies No Known Allergies [No Known Allergies*] Allergy (Verified 11/03/24 13:46) HPI HPI PO RT knee explor/poss quad ten repair 10/13/24 NE: Details: Jose is now 3 weeks status post I&D right knee for massive infected quad repair. He is on IV antibiotics and comes in today. He is walking with a knee brace and states he is doing okay. He has no complaints. [facility] Medical History (Updated 11/15/24 @ 00:01 by Tj Barrientos) First degree atrioventricular block by electrocardiogram Anemia Subclinical hypothyroidism Cellulitis Dyslipidemia Obesity HTN (hypertension) Rupture of right quadriceps tendon Gout Paronychia of great toe Elevated TSH Screening PSA (prostate specific antigen) Varicose veins of both lower extremities Surgical History History of amputation of left great toe (07/01/22) Hx of hand surgery Status post debridement (06/16/22) Hx of vascular surgery Hx of colonoscopy Family History Father HTN (hypertension) Mother Parkinsons disease Social History Household Members: None Housing: House Are you a primary adult caregiver to a significant other at home: No Do you presently have visiting nurse or other home services: No Alcohol intake: current Alcohol intake frequency: holidays/special occasions only Comment: COUNTS CORRECT Patient Tobacco Use Status: Never used Tobacco e-Cigarette/Vaping Use: Never Used Second Hand Smoke Exposure: No Advance Directives Date on File: 10/13/23 service: No Current occupational status: retired Cognitive needs: No Hearing needs: No Vision needs: No Physical Exam Extrem Other: Sutures removed his incision is well healed. He has a 20 degree lag. Assessment & Plan Assessment & Plan (1) Surgical site infection: Code(s): T81.49XA - Infection following a procedure, other surgical site, initial encounter Category: Medical Plan: Continue IV antibiotics for an additional 3 weeks. (2) Rupture of right quadriceps tendon: Comment: repair 09/29/24 with re-rupture on 09/30/24 Repair again performed on 10/13/24 *Right quad tendon irrigation and debridement 11/03/2024 Code(s): S76.111A - Strain of right quadriceps muscle, fascia and tendon, initial encounter Category: Medical Qualifiers: Encounter type: initial encounter Qualified Code(s): S76.111A - Strain of right quadriceps muscle, fascia and tendon, initial encounter Plan: Weightbearing as tolerated with brace locked in extension. Continue to avoid flexion for an additional 3 weeks. Follow up 3 weeks. Coding Level of Care Code Global (84628) Diagnoses Surgical site infection T81.49XA Rupture of right quadriceps tendon, initial encounter S76.111A Encounter type: initial encounter
--- OUTSIDE RECORDS SUMMARY | 2024-11-23 15:39 | XMS_ITS | Encounter Summary ---
Author Organization [facility] Address [address] [place] [address] Care Team Providers Care Electric Motor Winders Assembler Name Role Phone Fausto Pat NP Primary Care Provider Encounter Details Date Type Department Care Team (Late st Contact Info) Description 10/10/2024 Lab Requisition [facility] - Main Lab [address] [place] [address] Sara Blanc MD [address] [place] [address] Encounter for other general examination Social History [...] Complete blood count (10/10/2024 7:22 AM EST) [facility] WBC 9.1 4.8 - 10.8 K/mcL LAB HEMETOLOGY METHOD 10/10/2024 11:49 AM [facility] LAB RBC 4.40(L) 4.50 - 5.50 M/mcL LAB HEMETOLOGY METHOD 10/10/2024 11:49 AM [facility] LAB Hemoglobin 14.9 13.5 - 17.5 g/dL LAB HEMETOLOGY METHOD 10/10/2024 11:49 AM [facility] LAB Hematocrit 44.3 42.0 - 54.0 % LAB HEMETOLOGY METHOD 10/10/2024 11:49 AM [facility] LAB MCV 100.2(H) 79.0 - 98.0 FL LAB HEMETOLOGY METHOD 10/10/2024 11:49 AM [facility] LAB MCH 33.7(H) 27.0 - 32.0 pcg LAB HEMETOLOGY METHOD 10/10/2024 11:49 AM [facility] LAB MCHC 33.6 32.0 - 37.0 g/dL LAB HEMETOLOGY METHOD 10/10/2024 11:49 AM [facility] LAB RDW 13.0 11.0 - 15.0 % LAB HEMETOLOGY METHOD 10/10/2024 11:49 AM [facility] LAB Platelets 318 130 - 400 K/mcL LAB HEMETOLOGY METHOD 10/10/2024 11:49 AM [facility] LAB MPV 11.8(H) 7.0 - 11.0 FL LAB HEMETOLOGY METHOD 10/10/2024 11:49 AM [facility] LAB NRBC 0.0 <1.0 % LAB HEMETOLOGY METHOD 10/10/2024 11:49 AM [facility] LAB NRBC Absolute 0.00 <0.10 K/mcL LAB HEMETOLOGY METHOD 10/10/2024 11:49 AM [facility] LAB Blood Venous blood specimen / Unknown Venipuncture / Unknown 10/10/2024 7:22 AM EST 10/10/2024 11:30 AM EST us Sara Blanc MD LAB BLOOD ORDERABLES Final Res ult [facility] [address] [place] [address], [place] [phone] * Comprehensive metabolic panel (10/10/2024 7:22 AM EST) Sodium 139 133 - 145 mmol/L LAB CHEMISTRY METHOD 10/10/2024 1:03 PM [facility] LAB Potassium 4.2 3.5 - 5.5 mmol/L LAB CHEMISTRY METHOD 10/10/2024 1:03 PM [facility] LAB Chloride 103 96 - 110 mmol/L LAB CHEMISTRY METHOD 10/10/2024 1:03 PM [facility] CO2 31 21 - 32 mmol/L LAB CHEMISTRY METHOD 10/10/2024 1:03 PM [facility] LAB Anion Gap 5 3 - 11 LAB CHEMISTRY METHOD 10/10/2024 1:03 PM [facility] Glucose 81 70 - 100 mg/dL LAB CHEMISTRY METHOD 10/10/2024 1:03 PM [facility] BUN 18 5 - 25 mg/dL LAB CHEMISTRY METHOD 10/10/2024 1:03 PM [facility] LAB Creatinine 0.93 0.70 - 1.30 mg/dL LAB CHEMISTRY METHOD 10/10/2024 1:03 PM [facility] LAB eGFR 88 >=60 mL/min/1. 73m2 LAB CHEMISTRY METHOD 10/10/2024 1:03 PM [facility] LAB Comment:Calculation based on the??Chronic Kidney Disease Epidemiology Collaboration (CKD-EPI) equation refit??without adjustment for race. BUN/Creatinine Ratio 19.4 LAB CHEMISTRY METHOD 10/10/2024 1:03 PM [facility] Calcium 9.6 8.5 - 10.5 mg/dL LAB CHEMISTRY METHOD 10/10/2024 1:03 PM [facility] LAB AST (SGOT) 33 10 - 42 unit/L LAB CHEMISTRY METHOD 10/10/2024 1:03 PM [facility] LAB ALT (SGPT) 39 10 - 60 unit/L LAB CHEMISTRY METHOD 10/10/2024 1:03 PM [facility] LAB Alkaline Phosphatase 90 42 - 121 unit/L LAB CHEMISTRY METHOD 10/10/2024 1:03 PM [facility] Total Protein 7.3 6.0 - 8.0 g/dL LAB CHEMISTRY METHOD 10/10/2024 1:03 PM [facility] LAB Albumin 3.6 3.2 - 5.0 g/dL LAB CHEMISTRY METHOD 10/10/2024 1:03 PM [facility] LAB Total Bilirubin 1.4 0.0 - 1.4 mg/dL LAB CHEMISTRY METHOD 10/10/2024 1:03 PM [facility] LAB Blood Venous blood specimen / Unknown Venipuncture / Unknown 10/10/2024 7:22 AM EST 10/10/2024 11:30 AM EST us Sara Blanc MD LAB BLOOD ORDERABLES Final Res ult [facility] [address] [place] [address], documented in this encounter Visit Diagnoses Diagnosis Encounter for other general examination documented in this encounter Care Teams Electric Motor Winders Assembler Relationship Specialty Start Date End Date Fausto Pat NP [address] [place], [place] PCP - General Family Medicine 10/17/24 documented as of this encounter
--- OUTSIDE RECORDS SUMMARY | 2024-11-23 15:39 | XMS_ITS | Clinical Summary ---
Author Organization [facility] Address [address] [place] [address] Phone Care Team Providers Care Production Machine Shop Supervisor Name Role Phone Fausto Pat NP Primary [...] Team Description 10/18/2024 Plan of Care Documentation [facility] [address] [place] [address] 10/16/2024 4:33 PM EST - 10/19/2024 11:05 AM EST Hospital Encounter [facility] [address] [place] [address] Cynthia Bentley, Discharge Disposition: Home or Self Care 10/10/2024 Lab Requisition [facility] Lab [address] [place] [address] Sara Blanc MD Encounter for other general examination 10/05/2024 Lab Requisition [facility] Lab [address] [place] [address] Sara Blanc MD Encounter for other general [...] of2 resultswithin the time period is included. [facility] Glucose POCT 106(H) 70 - 100 mg/dL 10/17/2024 11:23 AM EST [facility] Blood Capillary blood specimen / Unknown 10/17/2024 11:23 AM EST 10/17/2024 11:26 AM EST us Cynthia Bentley DO LAB POINT OF CARE TEST DOCKED DEVICE UNSOLICITED RESULTS Final Result [facility] [address] [place] [address], [place] [phone] * (ABNORMAL) CBC auto differential (10/17/2024 5:46 AM EST) Only the most recent of2 resultswithin the time period is included. [facility] WBC 9.8 4.8 - 10.8 K/mcL LAB HEMETOLOGY METHOD 10/17/2024 6:14 AM [facility] RBC 3.90(L) 4.50 - 5.50 M/mcL LAB HEMETOLOGY METHOD 10/17/2024 6:14 AM [facility] Hemoglobin 13.0(L) 13.5 - 17.5 g/dL LAB HEMETOLOGY METHOD 10/17/2024 6:14 AM [facility] Hematocrit 37.4(L) 42.0 - 54.0 % LAB HEMETOLOGY METHOD 10/17/2024 6:14 AM [facility] MCV 96.9 79.0 - 98.0 FL LAB HEMETOLOGY METHOD 10/17/2024 6:14 AM [facility] MCH 33.7(H) 27.0 - 32.0 pcg LAB HEMETOLOGY METHOD 10/17/2024 6:14 AM [facility] MCHC 34.8 32.0 - 37.0 g/dL LAB HEMETOLOGY METHOD 10/17/2024 6:14 AM [facility] RDW 12.9 11.0 - 15.0 % LAB HEMETOLOGY METHOD 10/17/2024 6:14 AM [facility] Platelets 228 130 - 400 K/mcL LAB HEMETOLOGY METHOD 10/17/2024 6:14 AM [facility] MPV 10.8 7.0 - 11.0 FL LAB HEMETOLOGY METHOD 10/17/2024 6:14 AM [facility] NRBC 0.0 <1.0 % LAB HEMETOLOGY METHOD 10/17/2024 6:14 AM [facility] NRBC Absolute 0.00 <0.10 K/mcL LAB HEMETOLOGY METHOD 10/17/2024 6:14 AM [facility] Neutrophils Relative 64.4 % LAB HEMETOLOGY METHOD 10/17/2024 6:14 AM [facility] Lymphocytes Relative 18.1 % LAB HEMETOLOGY METHOD 10/17/2024 6:14 AM [facility] Monocytes Relative 8.9 % LAB HEMETOLOGY METHOD 10/17/2024 6:14 AM [facility] Eosinophils Relative 7.0 % LAB HEMETOLOGY METHOD 10/17/2024 6:14 AM [facility] Basophils Relative 1.2 % LAB HEMETOLOGY METHOD 10/17/2024 6:14 AM [facility] Immature Granulocytes Relative 0.4 % LAB HEMETOLOGY METHOD 10/17/2024 6:14 AM EST [facility] Neutrophils Absolute 6.31 1.50 - 7.00 K/mcL LAB HEMETOLOGY METHOD 10/17/2024 6:14 AM EST [facility] Lymphocytes Absolute 1.78 1.00 - 5.00 K/mcL LAB HEMETOLOGY METHOD 10/17/2024 6:14 AM EST [facility] Monocytes Absolute 0.87 0.20 - 1.00 K/mcL LAB HEMETOLOGY METHOD 10/17/2024 6:14 AM EST [facility] Eosinophils Absolute 0.69(H) 0.00 - 0.50 K/mcL LAB HEMETOLOGY METHOD 10/17/2024 6:14 AM EST [facility] Basophils Absolute 0.12 0.00 - 0.20 K/mcL LAB HEMETOLOGY METHOD 10/17/2024 6:14 AM [facility] Immature Granulocytes Absolute 0.04(H) 0.00 - 0.03 K/[facility] LAB HEMETOLOGY METHOD 10/17/2024 6:14 AM EST [facility] Blood Venous blood specimen / Unknown Venipuncture / Unknown 10/17/2024 5:46 AM EST 10/17/2024 6:04 AM EST us Moshe HICKEY LAB BLOOD ORDERABLES Final Re sult [facility] [address] [place] [address], * (ABNORMAL) Comprehensive metabolic panel (10/17/2024 5:46 AM EST) Only the most recent of3 resultswithin the time period is included. Sodium 138 133 - 145 mmol/L LAB CHEMISTRY METHOD 10/17/2024 6:32 AM EST [facility] Potassium 4.2 3.5 - 5.5 mmol/L LAB CHEMISTRY METHOD 10/17/2024 6:32 AM [facility] Chloride 105 96 - 110 mmol/L LAB CHEMISTRY METHOD 10/17/2024 6:32 AM [facility] CO2 27 21 - 32 mmol/L LAB CHEMISTRY METHOD 10/17/2024 6:32 AM [facility] Anion Gap 6 3 - 11 LAB CHEMISTRY METHOD 10/17/2024 6:32 AM [facility] Glucose 107(H) 70 - 100 mg/dL LAB CHEMISTRY METHOD 10/17/2024 6:32 AM [facility] BUN 19 5 - 25 mg/dL LAB CHEMISTRY METHOD 10/17/2024 6:32 AM [facility] Creatinine 1.08 0.70 - 1.30 mg/dL LAB CHEMISTRY METHOD 10/17/2024 6:32 AM [facility] eGFR 73 >=60 mL/min/1. 73m2 LAB CHEMISTRY METHOD 10/17/2024 6:32 AM [facility] Comment:Calculation based on the??Chronic Kidney Disease Epidemiology Collaboration (CKD-EPI) equation refit??without adjustment for race. BUN/Creatinine Ratio 17.6 LAB CHEMISTRY METHOD 10/17/2024 6:32 AM [facility] Calcium 9.1 8.5 - 10.5 mg/dL LAB CHEMISTRY METHOD 10/17/2024 6:32 AM [facility] AST (SGOT) 17 10 - 42 unit/L LAB CHEMISTRY METHOD 10/17/2024 6:32 AM [facility] ALT (SGPT) 30 10 - 60 unit/L LAB CHEMISTRY METHOD 10/17/2024 6:32 AM [facility] Alkaline Phosphatase 76 42 - 121 unit/L LAB CHEMISTRY METHOD 10/17/2024 6:32 AM [facility] Total Protein 6.3 6.0 - 8.0 g/dL LAB CHEMISTRY METHOD 10/17/2024 6:32 AM [facility] Albumin 2.9(L) 3.2 - 5.0 g/dL LAB CHEMISTRY METHOD 10/17/2024 6:32 AM EST [facility] Total Bilirubin 0.9 0.0 - 1.4 mg/dL LAB CHEMISTRY METHOD 10/17/2024 6:32 AM [facility] Blood Venous blood specimen / Unknown Venipuncture / Unknown 10/17/2024 5:46 AM EST 10/17/2024 6:04 AM EST us Moshe HICKEY LAB BLOOD ORDERABLES Final Re sult [facility] [address] [place] [address], * (ABNORMAL) Complete blood count (10/10/2024 7:22 AM EST) WBC 9.1 4.8 - 10.8 K/mcL LAB HEMETOLOGY METHOD 10/10/2024 11:49 AM [facility] RBC 4.40(L) 4.50 - 5.50 M/mcL LAB HEMETOLOGY METHOD 10/10/2024 11:49 AM [facility] Hemoglobin 14.9 13.5 - 17.5 g/dL LAB HEMETOLOGY METHOD 10/10/2024 11:49 AM [facility] Hematocrit 44.3 42.0 - 54.0 % LAB HEMETOLOGY METHOD 10/10/2024 11:49 AM [facility] MCV 100.2(H) 79.0 - 98.0 FL LAB HEMETOLOGY METHOD 10/10/2024 11:49 AM [facility] MCH 33.7(H) 27.0 - 32.0 pcg LAB HEMETOLOGY METHOD 10/10/2024 11:49 AM [facility] MCHC 33.6 32.0 - 37.0 g/dL LAB HEMETOLOGY METHOD 10/10/2024 11:49 AM EST [facility] RDW 13.0 11.0 - 15.0 % LAB HEMETOLOGY METHOD 10/10/2024 11:49 AM [facility] Platelets 318 130 - 400 K/mcL LAB HEMETOLOGY METHOD 10/10/2024 11:49 AM [facility] MPV 11.8(H) 7.0 - 11.0 FL LAB HEMETOLOGY METHOD 10/10/2024 11:49 AM EST [facility] NRBC 0.0 <1.0 % LAB HEMETOLOGY METHOD 10/10/2024 11:49 AM [facility] NRBC Absolute 0.00 <0.10 K/mcL LAB HEMETOLOGY METHOD 10/10/2024 11:49 AM EST [facility] Blood Venous blood specimen / Unknown Venipuncture / Unknown 10/10/2024 7:22 AM EST 10/10/2024 11:30 AM EST Sara Blanc MD LAB BLOOD ORDERABLES Final Res ult [facility] [address] [place] [address], * Magnesium (10/05/2024 5:24 AM EST) Magnesium 2.1 1.9 - 2.6 mg/dL LAB CHEMISTRY METHOD 10/05/2024 12:10 PM EST [facility] Blood Venous blood specimen / Unknown Venipuncture / Unknown 10/05/2024 5:24 AM EST 10/05/2024 10:54 AM EST Sara Blanc MD LAB BLOOD ORDERABLES Final Res ult [facility] [address] [place] [address], [place] [phone] from Last 3 Months Insurance MEDICARE [facility] Advance Directives Documents on File Type Date Recorded Patient Gas Usage Meter Clerk Expl anation Advance Directives and Living Will [...] currently active code status orders. Care Teams Production Machine Shop Supervisor Relationship Specialty Start Date End Date Fausto Pat NP [address] [facility] [place] PCP - General Family Medicine 10/17/24
--- OUTSIDE RECORDS SUMMARY | 2024-11-23 15:39 | XMS_ITS | Encounter Summary ---
Author Organization [facility] Address [address] [place] [address] Care Team Providers Care Help Desk Administrator Name Role Phone Fausto Pat NP Primary Care Provider Encounter Details Date Type Department Care Team (Late st Contact Info) Description 10/05/2024 Lab Requisition [facility] - Main Lab [address] [facility] [place] [address] Sara Blanc MD [address] [place] [address] Encounter for other general examination Social History [...] CBC auto differential (10/05/2024 5:24 AM EST) [facility] Signature WBC 10.0 4.8 - 10.8 K/mcL LAB HEMETOLOGY METHOD 10/05/2024 11:37 AM [facility] RBC 4.30(L) 4.50 - 5.50 M/mcL LAB HEMETOLOGY METHOD 10/05/2024 11:37 AM [facility] Hemoglobin 14.3 13.5 - 17.5 g/dL LAB HEMETOLOGY METHOD 10/05/2024 11:37 AM [facility] Hematocrit 42.4 42.0 - 54.0 % LAB HEMETOLOGY METHOD 10/05/2024 11:37 AM [facility] MCV 99.3(H) 79.0 - 98.0 FL LAB HEMETOLOGY METHOD 10/05/2024 11:37 AM [facility] MCH 33.5(H) 27.0 - 32.0 pcg LAB HEMETOLOGY METHOD 10/05/2024 11:37 AM [facility] MCHC 33.7 32.0 - 37.0 g/dL LAB HEMETOLOGY METHOD 10/05/2024 11:37 AM [facility] RDW 13.1 11.0 - 15.0 % LAB HEMETOLOGY METHOD 10/05/2024 11:37 AM [facility] Platelets 322 130 - 400 K/mcL LAB HEMETOLOGY METHOD 10/05/2024 11:37 AM [facility] MPV 10.9 7.0 - 11.0 FL LAB HEMETOLOGY METHOD 10/05/2024 11:37 AM [facility] NRBC 0.0 <1.0 % LAB HEMETOLOGY METHOD 10/05/2024 11:37 AM [facility] NRBC Absolute 0.00 <0.10 K/mcL LAB HEMETOLOGY METHOD 10/05/2024 11:37 AM [facility] Neutrophils Relative 72.7 % LAB HEMETOLOGY METHOD 10/05/2024 11:37 AM [facility] Lymphocytes Relative 11.5 % LAB HEMETOLOGY METHOD 10/05/2024 11:37 AM [facility] Monocytes Relative 9.5 % LAB HEMETOLOGY METHOD 10/05/2024 11:37 AM [facility] Eosinophils Relative 4.7 % LAB HEMETOLOGY METHOD 10/05/2024 11:37 AM [facility] Basophils Relative 1.1 % LAB HEMETOLOGY METHOD 10/05/2024 11:37 AM [facility] Immature Granulocytes Relative 0.5 % LAB HEMETOLOGY METHOD 10/05/2024 11:37 AM [facility] Neutrophils Absolute 7.28(H) 1.50 - 7.00 K/mcL LAB HEMETOLOGY METHOD 10/05/2024 11:37 AM [facility] Lymphocytes Absolute 1.15 1.00 - 5.00 K/mcL LAB HEMETOLOGY METHOD 10/05/2024 11:37 AM [facility] Monocytes Absolute 0.95 0.20 - 1.00 K/mcL LAB HEMETOLOGY METHOD 10/05/2024 11:37 AM [facility] Eosinophils Absolute 0.47 0.00 - 0.50 K/mcL LAB HEMETOLOGY METHOD 10/05/2024 11:37 AM [facility] Basophils Absolute 0.11 0.00 - 0.20 K/mcL LAB HEMETOLOGY METHOD 10/05/2024 11:37 AM [facility] Immature Granulocytes Absolute 0.05(H) 0.00 - 0.03 K/mcL LAB HEMETOLOGY METHOD 10/05/2024 11:37 AM EST [facility] Blood Venous blood specimen / Unknown Venipuncture / Unknown 10/05/2024 5:24 AM EST 10/05/2024 10:54 AM EST Sara Blanc MD LAB BLOOD ORDERABLES Final Res ult [facility] [address] [place] [address], [place] [phone] * Magnesium (10/05/2024 5:24 AM EST) Magnesium 2.1 1.9 - 2.6 mg/dL LAB CHEMISTRY METHOD 10/05/2024 12:10 PM [facility] Blood Venous blood specimen / Unknown Venipuncture / Unknown 10/05/2024 5:24 AM EST 10/05/2024 10:54 AM EST Sara Blanc MD LAB BLOOD ORDERABLES Final Res ult [facility] [address] [place] [address], [place] [phone] * (ABNORMAL) Comprehensive metabolic panel (10/05/2024 5:24 AM EST) Sodium 139 133 - 145 mmol/L LAB CHEMISTRY METHOD 10/05/2024 12:16 PM [facility] Potassium 4.1 3.5 - 5.5 mmol/L LAB CHEMISTRY METHOD 10/05/2024 12:16 PM [facility] Chloride 103 96 - 110 mmol/L LAB CHEMISTRY METHOD 10/05/2024 12:16 PM [facility] CO2 26 21 - 32 mmol/L LAB CHEMISTRY METHOD 10/05/2024 12:16 PM [facility] Anion Gap 10 3 - 11 LAB CHEMISTRY METHOD 10/05/2024 12:16 PM [facility] Glucose 82 70 - 100 mg/dL LAB CHEMISTRY METHOD 10/05/2024 12:16 PM [facility] BUN 17 5 - 25 mg/dL LAB CHEMISTRY METHOD 10/05/2024 12:16 PM [facility] Creatinine 0.97 0.70 - 1.30 mg/dL LAB CHEMISTRY METHOD 10/05/2024 12:16 PM [facility] eGFR 83 >=60 mL/min/1. 73m2 LAB CHEMISTRY METHOD 10/05/2024 12:16 PM [facility] Comment:Calculation based on the??Chronic Kidney Disease Epidemiology Collaboration (CKD-EPI) equation refit??without adjustment for race. BUN/Creatinine Ratio 17.5 LAB CHEMISTRY METHOD 10/05/2024 12:16 PM [facility] Calcium 9.1 8.5 - 10.5 mg/dL LAB CHEMISTRY METHOD 10/05/2024 12:16 PM [facility] AST (SGOT) 25 10 - 42 unit/L LAB CHEMISTRY METHOD 10/05/2024 12:16 PM [facility] ALT (SGPT) 35 10 - 60 unit/L LAB CHEMISTRY METHOD 10/05/2024 12:16 PM [facility] Alkaline Phosphatase 83 42 - 121 unit/L LAB CHEMISTRY METHOD 10/05/2024 12:16 PM [facility] Total Protein 6.8 6.0 - 8.0 g/dL LAB CHEMISTRY METHOD 10/05/2024 12:16 PM [facility] Albumin 3.3 3.2 - 5.0 g/dL LAB CHEMISTRY METHOD 10/05/2024 12:16 PM [facility] Total Bilirubin 1.5(H) 0.0 - 1.4 mg/dL LAB CHEMISTRY METHOD 10/05/2024 12:16 PM [facility] Blood Venous blood specimen / Unknown Venipuncture / Unknown 10/05/2024 5:24 AM EST 10/05/2024 10:54 AM EST us Sara Blanc MD LAB BLOOD ORDERABLES Final Res ult Performing Organization Address City/State/[facility] Co de Phone Number [facility] [address] [place] [address], documented in this encounter Visit Diagnoses Diagnosis Encounter for other general examination documented in this encounter Care Teams Help Desk Administrator Relationship Specialty Start Date End Date Fausto Pat NP [address] [place], [place] PCP - General Family Medicine 10/17/24 documented as of this encounter
== END 2024-11-23 13:51 | disposition home or self-care (01) ==
LOC: HO.HOS 12:59
PROVIDERS: PCP Nurse Practitioner Family; Visit Provider Orthopaedic Surgery
DX: T81.49XA Infection following a procedure, other surgical site, initial encounter (principal); S76.111A Strain of right quadriceps muscle, fascia and tendon, initial encounter
CPT/HCPCS: 99024

== ENCOUNTER 2024-11-30 10:16 | Outpatient (REF) | payer MEDICARE, SELFPAY ==
[2024-11-30 10:18] LABS: MANUAL DIFF FLAG NO
[2024-11-30 10:37] LABS: Basophils Absolute Auto 0.1 X10*3/uL (0.0-0.2); Basophils Percent Auto 1.4 % (0-2); Eosinophils Absolute Auto 0.6 X10*3/uL (0.0-0.4); Eosinophils Percent Auto 7.1 % (0-4); Hemoglobin 12.7 g/dl (14.0-18.0); Imm Gran Abs Auto 0.04 X10*3/uL (0.00-0.03); Imm Gran Pct Auto 0.5 % (0.0-0.4); Lymphocytes Absolute Auto 1.1 X10*3/uL (1.2-4.9); Lymphocytes Percent Auto 13.5 % (20-40); Mean Corpuscular HGB Conc 34.3 g/dl (31.0-36.0); Mean Corpuscular Hemoglobin 31.4 pg (27.0-33.0); Mean Corpuscular Volume 91.4 fL (80.0-98.0); Mean Platelet Volume 11.1 fL (9.4-12.4); Monocytes Percent Auto 12.6 % (2-11); Neutrophils Absolute Auto 5.2 x10*3/uL (2.0-8.3); Neutrophils Percent Auto 64.9 % (45-73); Platelet Count 257 X10*3/uL (160-400); Red Blood Count 4.05 X10*6/uL (4.60-5.80); Red Cell Distribution Width 13.6 % (11.0-16.0); White Blood Count 7.9 X10*3/uL (4.8-10.8)
[2024-11-30 11:31] LABS: Vancomycin Trough 10.1 mcg/mL (10.0-20.0)
[2024-11-30 11:37] LABS: Alanine Aminotransferase 17 U/L (0-40); Albumin Level 3.7 g/dL (3.5-5.0); Anion Gap 10 (12-20); Aspartate Amino Transferase 20 U/L (5-37); Bilirubin Total 0.6 mg/dL (0.0-1.0); Blood Urea Nitrogen 20 mg/dL (9-16); Calcium 9.5 mg/dL (8.4-10.2); Carbon Dioxide 26 mmol/L (22-29); Chloride 107 mmol/L (96-108); Estimated Glomerular Filt Rate > 60; Glucose Random 87 mg/dL (60-115); Potassium 3.7 mmol/L (3.3-5.1); Sodium 139 mmol/L (135-145); Total Protein 7.2 g/dL (6.5-8.0)
[2024-11-30 11:46] LABS: Alkaline Phosphatase 84 U/L (39-117)
--- OUTSIDE RECORDS SUMMARY | 2024-11-30 12:11 | XMS_ITS | Encounter Summary ---
Author Organization [facility] Address [address] [place] [address] Care Team Providers Care Director Advertising Name Role Phone Fausto Pat NP Primary Care Provider Encounter Details Date Type Department Care Team (Late st Contact Info) Description 10/10/2024 Lab Requisition [facility] - Main Lab [address] [place] [address] Sara Blanc MD [address] [place] [address] Encounter for other general examination Social History [...] K/mcL LAB HEMETOLOGY METHOD 10/10/2024 11:49 AM [facility] RBC 4.40(L) 4.50 - 5.50 M/mcL LAB HEMETOLOGY METHOD 10/10/2024 11:49 AM [facility] Hemoglobin 14.9 13.5 - 17.5 g/dL LAB HEMETOLOGY METHOD 10/10/2024 11:49 AM [facility] Hematocrit 44.3 42.0 - 54.0 % LAB HEMETOLOGY METHOD 10/10/2024 11:49 AM [facility] MCV 100.2(H) 79.0 - 98.0 FL LAB HEMETOLOGY METHOD 10/10/2024 11:49 AM [facility] MCH 33.7(H) 27.0 - 32.0 pcg LAB HEMETOLOGY METHOD 10/10/2024 11:49 AM [facility] MCHC 33.6 32.0 - 37.0 g/dL LAB HEMETOLOGY METHOD 10/10/2024 11:49 AM [facility] RDW 13.0 11.0 - 15.0 % LAB HEMETOLOGY METHOD 10/10/2024 11:49 AM [facility] Platelets 318 130 - 400 K/mcL LAB HEMETOLOGY METHOD 10/10/2024 11:49 AM [facility] MPV 11.8(H) 7.0 - 11.0 FL LAB HEMETOLOGY METHOD 10/10/2024 11:49 AM [facility] NRBC 0.0 <1.0 % LAB HEMETOLOGY METHOD 10/10/2024 11:49 AM [facility] NRBC Absolute 0.00 <0.10 K/mcL LAB HEMETOLOGY METHOD 10/10/2024 11:49 AM [facility] Blood Venous blood specimen / Unknown Venipuncture / Unknown 10/10/2024 7:22 AM EST 10/10/2024 11:30 AM EST us Sara Blanc MD LAB BLOOD ORDERABLES Final Res ult [facility] [address] [place] [address], [place] [phone] * Comprehensive metabolic panel (10/10/2024 7:22 AM EST) Sodium 139 133 - 145 mmol/L LAB CHEMISTRY METHOD 10/10/2024 1:03 PM [facility] Potassium 4.2 3.5 - 5.5 mmol/L LAB CHEMISTRY METHOD 10/10/2024 1:03 PM [facility] Chloride 103 96 - 110 mmol/L LAB CHEMISTRY METHOD 10/10/2024 1:03 PM [facility] CO2 31 21 - 32 mmol/L LAB CHEMISTRY METHOD 10/10/2024 1:03 PM [facility] Anion Gap 5 3 - 11 LAB CHEMISTRY METHOD 10/10/2024 1:03 PM [facility] Glucose 81 70 - 100 mg/dL LAB CHEMISTRY METHOD 10/10/2024 1:03 PM [facility] BUN 18 5 - 25 mg/dL LAB CHEMISTRY METHOD 10/10/2024 1:03 PM [facility] Creatinine 0.93 0.70 - 1.30 mg/dL LAB CHEMISTRY METHOD 10/10/2024 1:03 PM [facility] eGFR 88 >=60 mL/min/1. 73m2 LAB CHEMISTRY METHOD 10/10/2024 1:03 PM [facility] Comment:Calculation based on the??Chronic Kidney Disease Epidemiology Collaboration (CKD-EPI) equation refit??without adjustment for race. BUN/Creatinine Ratio 19.4 LAB CHEMISTRY METHOD 10/10/2024 1:03 PM [facility] Calcium 9.6 8.5 - 10.5 mg/dL LAB CHEMISTRY METHOD 10/10/2024 1:03 PM [facility] AST (SGOT) 33 10 - 42 unit/L LAB CHEMISTRY METHOD 10/10/2024 1:03 PM [facility] ALT (SGPT) 39 10 - 60 unit/L LAB CHEMISTRY METHOD 10/10/2024 1:03 PM [facility] Alkaline Phosphatase 90 42 - 121 unit/L LAB CHEMISTRY METHOD 10/10/2024 1:03 PM [facility] Total Protein 7.3 6.0 - 8.0 g/dL LAB CHEMISTRY METHOD 10/10/2024 1:03 PM [facility] Albumin 3.6 3.2 - 5.0 g/dL LAB CHEMISTRY METHOD 10/10/2024 1:03 PM [facility] Total Bilirubin 1.4 0.0 - 1.4 mg/dL LAB CHEMISTRY METHOD 10/10/2024 1:03 PM [facility] Blood Venous blood specimen / Unknown Venipuncture / Unknown 10/10/2024 7:22 AM EST 10/10/2024 11:30 AM EST us Sara Blanc MD LAB BLOOD ORDERABLES Final Res ult [facility] [address] [place] [address], documented in this encounter Visit Diagnoses Diagnosis Encounter for other general examination documented in this encounter Care Teams Director Advertising Relationship Specialty Start Date End Date Fausto Pat NP [address], [place] PCP - General Family Medicine 10/17/24 documented as of this encounter
--- OUTSIDE RECORDS SUMMARY | 2024-11-30 12:11 | XMS_ITS | Clinical Summary ---
Author Organization [facility] Address [address] [place] [address] Phone Care Team Providers Care Ceramic Research Engineer Name Role Phone Fausto Pat NP Primary [...] Team Description 10/18/2024 Plan of Care Documentation [facility] [address] [place] [address] 10/16/2024 4:33 PM EST - 10/19/2024 11:05 AM EST Hospital Encounter [facility] [address] [place] [address] Cynthia Bentley, Discharge Disposition: Home or Self Care 10/10/2024 Lab Requisition [facility] Lab [address] [place] [address] Sara Blanc MD Encounter for other general examination 10/05/2024 Lab Requisition [facility] Lab [address] [place] [address] Sara Blanc MD Encounter for other general [...] Vaccine ( - 2023-2 5 season) 2024 Cholesterol Screening (Lipid Panel) 10/04/2024 Colorectal Cancer Screening: Colonoscopy 10/04/2024 Hepatitis C Screening 10/04/2024 Medicare Annual Wellness Visit 10/04/2024 Influenza Vaccine (Season Ended) 2025 Hypertension/CHF/CAD Annual BMP Blood Test 10/17/2025 10/17/2024, [...] of2 resultswithin the time period is included. [facility] Glucose POCT 106(H) 70 - 100 mg/dL 10/17/2024 11:23 AM EST [facility] Blood Capillary blood specimen / Unknown 10/17/2024 11:23 AM EST 10/17/2024 11:26 AM EST us Cynthia Bentley DO LAB POINT OF CARE TEST DOCKED DEVICE UNSOLICITED RESULTS Final Result [facility] [address] [place] [address], [place] [phone] * (ABNORMAL) CBC auto differential (10/17/2024 5:46 AM EST) Only the most recent of2 resultswithin the time period is included. [facility] WBC 9.8 4.8 - 10.8 K/mcL LAB HEMETOLOGY METHOD 10/17/2024 6:14 AM [facility] RBC 3.90(L) 4.50 - 5.50 M/mcL LAB HEMETOLOGY METHOD 10/17/2024 6:14 AM [facility] Hemoglobin 13.0(L) 13.5 - 17.5 g/dL LAB HEMETOLOGY METHOD 10/17/2024 6:14 AM [facility] Hematocrit 37.4(L) 42.0 - 54.0 % LAB HEMETOLOGY METHOD 10/17/2024 6:14 AM [facility] MCV 96.9 79.0 - 98.0 FL LAB HEMETOLOGY METHOD 10/17/2024 6:14 AM [facility] MCH 33.7(H) 27.0 - 32.0 pcg LAB HEMETOLOGY METHOD 10/17/2024 6:14 AM [facility] MCHC 34.8 32.0 - 37.0 g/dL LAB HEMETOLOGY METHOD 10/17/2024 6:14 AM [facility] RDW 12.9 11.0 - 15.0 % LAB HEMETOLOGY METHOD 10/17/2024 6:14 AM [facility] Platelets 228 130 - 400 K/mcL LAB HEMETOLOGY METHOD 10/17/2024 6:14 AM [facility] MPV 10.8 7.0 - 11.0 FL LAB HEMETOLOGY METHOD 10/17/2024 6:14 AM [facility] NRBC 0.0 <1.0 % LAB HEMETOLOGY METHOD 10/17/2024 6:14 AM [facility] NRBC Absolute 0.00 <0.10 K/mcL LAB HEMETOLOGY METHOD 10/17/2024 6:14 AM [facility] Neutrophils Relative 64.4 % LAB HEMETOLOGY METHOD 10/17/2024 6:14 AM [facility] Lymphocytes Relative 18.1 % LAB HEMETOLOGY METHOD 10/17/2024 6:14 AM [facility] Monocytes Relative 8.9 % LAB HEMETOLOGY METHOD 10/17/2024 6:14 AM [facility] Eosinophils Relative 7.0 % LAB HEMETOLOGY METHOD 10/17/2024 6:14 AM [facility] Basophils Relative 1.2 % LAB HEMETOLOGY METHOD 10/17/2024 6:14 AM [facility] Immature Granulocytes Relative 0.4 % LAB HEMETOLOGY METHOD 10/17/2024 6:14 AM EST [facility] Neutrophils Absolute 6.31 1.50 - 7.00 K/mcL LAB HEMETOLOGY METHOD 10/17/2024 6:14 AM EST [facility] Lymphocytes Absolute 1.78 1.00 - 5.00 K/mcL LAB HEMETOLOGY METHOD 10/17/2024 6:14 AM EST [facility] Monocytes Absolute 0.87 0.20 - 1.00 K/mcL LAB HEMETOLOGY METHOD 10/17/2024 6:14 AM EST [facility] Eosinophils Absolute 0.69(H) 0.00 - 0.50 K/mcL LAB HEMETOLOGY METHOD 10/17/2024 6:14 AM EST [facility] Basophils Absolute 0.12 0.00 - 0.20 K/mcL LAB HEMETOLOGY METHOD 10/17/2024 6:14 AM [facility] Immature Granulocytes Absolute 0.04(H) 0.00 - 0.03 K/[facility] LAB HEMETOLOGY METHOD 10/17/2024 6:14 AM EST [facility] Blood Venous blood specimen / Unknown Venipuncture / Unknown 10/17/2024 5:46 AM EST 10/17/2024 6:04 AM EST us Moshe HICKEY LAB BLOOD ORDERABLES Final Re sult [facility] [address] [place] [address], * (ABNORMAL) Comprehensive metabolic panel (10/17/2024 5:46 AM EST) Only the most recent of3 resultswithin the time period is included. Sodium 138 133 - 145 mmol/L LAB CHEMISTRY METHOD 10/17/2024 6:32 AM EST [facility] Potassium 4.2 3.5 - 5.5 mmol/L LAB CHEMISTRY METHOD 10/17/2024 6:32 AM [facility] Chloride 105 96 - 110 mmol/L LAB CHEMISTRY METHOD 10/17/2024 6:32 AM [facility] CO2 27 21 - 32 mmol/L LAB CHEMISTRY METHOD 10/17/2024 6:32 AM [facility] Anion Gap 6 3 - 11 LAB CHEMISTRY METHOD 10/17/2024 6:32 AM [facility] Glucose 107(H) 70 - 100 mg/dL LAB CHEMISTRY METHOD 10/17/2024 6:32 AM [facility] BUN 19 5 - 25 mg/dL LAB CHEMISTRY METHOD 10/17/2024 6:32 AM [facility] Creatinine 1.08 0.70 - 1.30 mg/dL LAB CHEMISTRY METHOD 10/17/2024 6:32 AM [facility] eGFR 73 >=60 mL/min/1. 73m2 LAB CHEMISTRY METHOD 10/17/2024 6:32 AM [facility] Comment:Calculation based on the??Chronic Kidney Disease Epidemiology Collaboration (CKD-EPI) equation refit??without adjustment for race. BUN/Creatinine Ratio 17.6 LAB CHEMISTRY METHOD 10/17/2024 6:32 AM [facility] Calcium 9.1 8.5 - 10.5 mg/dL LAB CHEMISTRY METHOD 10/17/2024 6:32 AM [facility] AST (SGOT) 17 10 - 42 unit/L LAB CHEMISTRY METHOD 10/17/2024 6:32 AM [facility] ALT (SGPT) 30 10 - 60 unit/L LAB CHEMISTRY METHOD 10/17/2024 6:32 AM [facility] Alkaline Phosphatase 76 42 - 121 unit/L LAB CHEMISTRY METHOD 10/17/2024 6:32 AM [facility] Total Protein 6.3 6.0 - 8.0 g/dL LAB CHEMISTRY METHOD 10/17/2024 6:32 AM [facility] Albumin 2.9(L) 3.2 - 5.0 g/dL LAB CHEMISTRY METHOD 10/17/2024 6:32 AM EST [facility] Total Bilirubin 0.9 0.0 - 1.4 mg/dL LAB CHEMISTRY METHOD 10/17/2024 6:32 AM [facility] Blood Venous blood specimen / Unknown Venipuncture / Unknown 10/17/2024 5:46 AM EST 10/17/2024 6:04 AM EST us Moshe HICKEY LAB BLOOD ORDERABLES Final Re sult [facility] [address] [place] [address], * (ABNORMAL) Complete blood count (10/10/2024 7:22 [...] LAB HEMETOLOGY METHOD 10/10/2024 11:49 AM EST [facility] RDW 13.0 11.0 - 15.0 % LAB HEMETOLOGY METHOD 10/10/2024 11:49 AM [facility] Platelets 318 130 - 400 K/mcL LAB HEMETOLOGY METHOD 10/10/2024 11:49 AM [facility] MPV 11.8(H) 7.0 - 11.0 FL LAB HEMETOLOGY METHOD 10/10/2024 11:49 AM EST [facility] NRBC 0.0 <1.0 % LAB HEMETOLOGY METHOD 10/10/2024 11:49 AM [facility] NRBC Absolute 0.00 <0.10 K/mcL LAB HEMETOLOGY METHOD 10/10/2024 11:49 AM EST [facility] Blood Venous blood specimen / Unknown Venipuncture / Unknown 10/10/2024 7:22 AM EST 10/10/2024 11:30 AM EST Sara Blanc MD LAB BLOOD ORDERABLES Final Res ult [facility] [address] [place] [address], * Magnesium (10/05/2024 5:24 AM EST) Magnesium 2.1 1.9 - 2.6 mg/dL LAB CHEMISTRY METHOD 10/05/2024 12:10 PM EST [facility] Blood Venous blood specimen / Unknown Venipuncture / Unknown 10/05/2024 5:24 AM EST 10/05/2024 10:54 AM EST Sara Blanc MD LAB BLOOD ORDERABLES Final Res ult [facility] [address] [place] [address], [place] [phone] from Last 3 Months Insurance MEDICARE [facility] Advance Directives Documents on File Type Date Recorded Patient Centrifugal Separator Expl anation Advance Directives and Living Will [...] currently active code status orders. 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
--- OUTSIDE RECORDS SUMMARY | 2024-11-30 12:11 | XMS_ITS | Encounter Summary ---
Author Organization [facility] Address [address] [place] [address] Care Team Providers Care Dispatch Specialist Name Role Phone Fausto Pat NP Primary Care Provider [phone] Encounter Details Date Type Department Care Team (Late st Contact Info) Description 10/05/[address] [facility] [address] [facility] [place] [address] Sara Blanc MD [address] [place] [id number] Encounter for other general examination Social History [...] CBC auto differential (10/05/2024 5:24 AM EST) [facility] Signature WBC 10.0 4.8 - 10.8 K/mcL LAB HEMETOLOGY METHOD 10/05/2024 11:37 AM [facility] RBC 4.30(L) 4.50 - 5.50 M/mcL LAB HEMETOLOGY METHOD 10/05/2024 11:37 AM [facility] Hemoglobin 14.3 13.5 - 17.5 g/dL LAB HEMETOLOGY METHOD 10/05/2024 11:37 AM [facility] Hematocrit 42.4 42.0 - 54.0 % LAB HEMETOLOGY METHOD 10/05/2024 11:37 AM [facility] MCV 99.3(H) 79.0 - 98.0 FL LAB HEMETOLOGY METHOD 10/05/2024 11:37 AM [facility] MCH 33.5(H) 27.0 - 32.0 pcg LAB HEMETOLOGY METHOD 10/05/2024 11:37 AM [facility] MCHC 33.7 32.0 - 37.0 g/dL LAB HEMETOLOGY METHOD 10/05/2024 11:37 AM [facility] RDW 13.1 11.0 - 15.0 % LAB HEMETOLOGY METHOD 10/05/2024 11:37 AM [facility] Platelets 322 130 - 400 K/mcL LAB HEMETOLOGY METHOD 10/05/2024 11:37 AM [facility] MPV 10.9 7.0 - 11.0 FL LAB HEMETOLOGY METHOD 10/05/2024 11:37 AM [facility] NRBC 0.0 <1.0 % LAB HEMETOLOGY METHOD 10/05/2024 11:37 AM [facility] NRBC Absolute 0.00 <0.10 K/mcL LAB HEMETOLOGY METHOD 10/05/2024 11:37 AM [facility] Neutrophils Relative 72.7 % LAB HEMETOLOGY METHOD 10/05/2024 11:37 AM [facility] Lymphocytes Relative 11.5 % LAB HEMETOLOGY METHOD 10/05/2024 11:37 AM [facility] Monocytes Relative 9.5 % LAB HEMETOLOGY METHOD 10/05/2024 11:37 AM [facility] Eosinophils Relative 4.7 % LAB HEMETOLOGY METHOD 10/05/2024 11:37 AM [facility] Basophils Relative 1.1 % LAB HEMETOLOGY METHOD 10/05/2024 11:37 AM [facility] Immature Granulocytes Relative 0.5 % LAB HEMETOLOGY METHOD 10/05/2024 11:37 AM [facility] Neutrophils Absolute 7.28(H) 1.50 - 7.00 K/mcL LAB HEMETOLOGY METHOD 10/05/2024 11:37 AM [facility] Lymphocytes Absolute 1.15 1.00 - 5.00 K/mcL LAB HEMETOLOGY METHOD 10/05/2024 11:37 AM [facility] Monocytes Absolute 0.95 0.20 - 1.00 K/mcL LAB HEMETOLOGY METHOD 10/05/2024 11:37 AM [facility] Eosinophils Absolute 0.47 0.00 - 0.50 K/mcL LAB HEMETOLOGY METHOD 10/05/2024 11:37 AM [facility] Basophils Absolute 0.11 0.00 - 0.20 K/mcL LAB HEMETOLOGY METHOD 10/05/2024 11:37 AM [facility] Immature Granulocytes Absolute 0.05(H) 0.00 - 0.03 K/mcL LAB HEMETOLOGY METHOD 10/05/2024 11:37 AM EST [facility] Blood Venous blood specimen / Unknown Venipuncture / Unknown 10/05/2024 5:24 AM EST 10/05/2024 10:54 AM EST Sara Blanc MD LAB BLOOD ORDERABLES Final Res ult [facility] [address] [place] [address], [place] [phone] * Magnesium (10/05/2024 5:24 AM EST) Magnesium 2.1 1.9 - 2.6 mg/dL LAB CHEMISTRY METHOD 10/05/2024 12:10 PM [facility] Blood Venous blood specimen / Unknown Venipuncture / Unknown 10/05/2024 5:24 AM EST 10/05/2024 10:54 AM EST Sara Blanc MD LAB BLOOD ORDERABLES Final Res ult [facility] [address] [place] [address], [place] [phone] * (ABNORMAL) Comprehensive metabolic panel (10/05/2024 5:24 AM EST) Sodium 139 133 - 145 mmol/L LAB CHEMISTRY METHOD 10/05/2024 12:16 PM [facility] Potassium 4.1 3.5 - 5.5 mmol/L LAB CHEMISTRY METHOD 10/05/2024 12:16 PM [facility] Chloride 103 96 - 110 mmol/L LAB CHEMISTRY METHOD 10/05/2024 12:16 PM [facility] CO2 26 21 - 32 mmol/L LAB CHEMISTRY METHOD 10/05/2024 12:16 PM [facility] Anion Gap 10 3 - 11 LAB CHEMISTRY METHOD 10/05/2024 12:16 PM [facility] Glucose 82 70 - 100 mg/dL LAB CHEMISTRY METHOD 10/05/2024 12:16 PM [facility] BUN 17 5 - 25 mg/dL LAB CHEMISTRY METHOD 10/05/2024 12:16 PM [facility] Creatinine 0.97 0.70 - 1.30 mg/dL LAB CHEMISTRY METHOD 10/05/2024 12:16 PM [facility] eGFR 83 >=60 mL/min/1. 73m2 LAB CHEMISTRY METHOD 10/05/2024 12:16 PM [facility] Comment:Calculation based on the??Chronic Kidney Disease Epidemiology Collaboration (CKD-EPI) equation refit??without adjustment for race. BUN/Creatinine Ratio 17.5 LAB CHEMISTRY METHOD 10/05/2024 12:16 PM [facility] Calcium 9.1 8.5 - 10.5 mg/dL LAB CHEMISTRY METHOD 10/05/2024 12:16 PM [facility] AST (SGOT) 25 10 - 42 unit/L LAB CHEMISTRY METHOD 10/05/2024 12:16 PM [facility] ALT (SGPT) 35 10 - 60 unit/L LAB CHEMISTRY METHOD 10/05/2024 12:16 PM [facility] Alkaline Phosphatase 83 42 - 121 unit/L LAB CHEMISTRY METHOD 10/05/2024 12:16 PM [facility] Total Protein 6.8 6.0 - 8.0 g/dL LAB CHEMISTRY METHOD 10/05/2024 12:16 PM [facility] Albumin 3.3 3.2 - 5.0 g/dL LAB CHEMISTRY METHOD 10/05/2024 12:16 PM [facility] Total Bilirubin 1.5(H) 0.0 - 1.4 mg/dL LAB CHEMISTRY METHOD 10/05/2024 12:16 PM [facility] Blood Venous blood specimen / Unknown Venipuncture / Unknown 10/05/2024 5:24 AM EST 10/05/2024 10:54 AM EST us Sara Blanc MD LAB BLOOD ORDERABLES Final Res ult Performing Organization Address City/State/[facility] Co de Phone Number [facility] ([facility]) [facility] [address] [place] [address], documented in this encounter Visit Diagnoses Diagnosis Encounter for other general examination documented in this encounter Care Teams Dispatch Specialist Relationship Specialty Start Date End Date Fausto Pat NP [address] [place], [place] PCP - General Family Medicine 10/17/24 documented as of this encounter
== END 2024-11-30 10:17 | disposition home or self-care (01) ==
LOC: HO.LNP 10:16
PROVIDERS: Visit Provider Internal Medicine
DX: T81.41XA Infection following a procedure, superficial incisional surgical site, initial encounter (principal)
CPT/HCPCS: 80053; 80202; 85025

== ENCOUNTER 2024-12-07 10:05 | Outpatient (REF) | payer MEDICARE, SELFPAY ==
[2024-12-07 10:08] LABS: MANUAL DIFF FLAG NO
[2024-12-07 11:32] LABS: Basophils Absolute Auto 0.1 X10*3/uL (0.0-0.2); Basophils Percent Auto 1.5 % (0-2); Eosinophils Absolute Auto 0.5 X10*3/uL (0.0-0.4); Eosinophils Percent Auto 6.2 % (0-4); Hematocrit 38.9 % (42.0-52.0); Hemoglobin 13.5 g/dl (14.0-18.0); Imm Gran Abs Auto 0.03 X10*3/uL (0.00-0.03); Imm Gran Pct Auto 0.4 % (0.0-0.4); Lymphocytes Absolute Auto 1.1 X10*3/uL (1.2-4.9); Lymphocytes Percent Auto 13.2 % (20-40); Mean Corpuscular HGB Conc 34.7 g/dl (31.0-36.0); Mean Corpuscular Hemoglobin 31.8 pg (27.0-33.0); Mean Corpuscular Volume 91.7 fL (80.0-98.0); Mean Platelet Volume 11.2 fL (9.4-12.4); Monocytes Absolute Auto 0.7 X10*3/uL (0.1-1.2); Neutrophils Absolute Auto 5.6 x10*3/uL (2.0-8.3); Neutrophils Percent Auto 69.7 % (45-73); Platelet Count 283 X10*3/uL (160-400); Red Blood Count 4.24 X10*6/uL (4.60-5.80); Red Cell Distribution Width 14.3 % (11.0-16.0)
--- OUTSIDE RECORDS SUMMARY | 2024-12-07 11:32 | XMS_ITS | Clinical Summary ---
Author Organization [facility] Address [address] [place] [address] Phone Care Team Providers Care Fresh Meat Grader Name Role Phone Fausto Pat NP Primary [...] Team Description 10/18/2024 Plan of Care Documentation [facility] [address] [place] [address] 10/16/2024 4:33 PM EST - 10/19/2024 11:05 AM EST Hospital Encounter [facility] [address] [place] [address] Cynthia Bentley, Discharge Disposition: Home or Self Care 10/10/2024 Lab Requisition [facility] Lab [address] [place] [address] Sara Blanc MD Encounter for other general examination 10/05/2024 Lab Requisition [facility] Lab [address] [place] [address] Sara Blanc MD Encounter for other general [...] of2 resultswithin the time period is included. [facility] Glucose POCT 106(H) 70 - 100 mg/dL 10/17/2024 11:23 AM EST [facility] Blood Capillary blood specimen / Unknown 10/17/2024 11:23 AM EST 10/17/2024 11:26 AM EST us Cynthia Bentley DO LAB POINT OF CARE TEST DOCKED DEVICE UNSOLICITED RESULTS Final Result [facility] [address] [place] [address], [place] [phone] * (ABNORMAL) CBC auto differential (10/17/2024 5:46 AM EST) Only the most recent of2 resultswithin the time period is included. [facility] WBC 9.8 4.8 - 10.8 K/mcL LAB HEMETOLOGY METHOD 10/17/2024 6:14 AM [facility] RBC 3.90(L) 4.50 - 5.50 M/mcL LAB HEMETOLOGY METHOD 10/17/2024 6:14 AM [facility] Hemoglobin 13.0(L) 13.5 - 17.5 g/dL LAB HEMETOLOGY METHOD 10/17/2024 6:14 AM [facility] Hematocrit 37.4(L) 42.0 - 54.0 % LAB HEMETOLOGY METHOD 10/17/2024 6:14 AM [facility] MCV 96.9 79.0 - 98.0 FL LAB HEMETOLOGY METHOD 10/17/2024 6:14 AM [facility] MCH 33.7(H) 27.0 - 32.0 pcg LAB HEMETOLOGY METHOD 10/17/2024 6:14 AM [facility] MCHC 34.8 32.0 - 37.0 g/dL LAB HEMETOLOGY METHOD 10/17/2024 6:14 AM [facility] RDW 12.9 11.0 - 15.0 % LAB HEMETOLOGY METHOD 10/17/2024 6:14 AM [facility] Platelets 228 130 - 400 K/mcL LAB HEMETOLOGY METHOD 10/17/2024 6:14 AM [facility] MPV 10.8 7.0 - 11.0 FL LAB HEMETOLOGY METHOD 10/17/2024 6:14 AM [facility] NRBC 0.0 <1.0 % LAB HEMETOLOGY METHOD 10/17/2024 6:14 AM [facility] NRBC Absolute 0.00 <0.10 K/mcL LAB HEMETOLOGY METHOD 10/17/2024 6:14 AM [facility] Neutrophils Relative 64.4 % LAB HEMETOLOGY METHOD 10/17/2024 6:14 AM [facility] Lymphocytes Relative 18.1 % LAB HEMETOLOGY METHOD 10/17/2024 6:14 AM [facility] Monocytes Relative 8.9 % LAB HEMETOLOGY METHOD 10/17/2024 6:14 AM [facility] Eosinophils Relative 7.0 % LAB HEMETOLOGY METHOD 10/17/2024 6:14 AM [facility] Basophils Relative 1.2 % LAB HEMETOLOGY METHOD 10/17/2024 6:14 AM [facility] Immature Granulocytes Relative 0.4 % LAB HEMETOLOGY METHOD 10/17/2024 6:14 AM EST [facility] Neutrophils Absolute 6.31 1.50 - 7.00 K/mcL LAB HEMETOLOGY METHOD 10/17/2024 6:14 AM EST [facility] Lymphocytes Absolute 1.78 1.00 - 5.00 K/mcL LAB HEMETOLOGY METHOD 10/17/2024 6:14 AM EST [facility] Monocytes Absolute 0.87 0.20 - 1.00 K/mcL LAB HEMETOLOGY METHOD 10/17/2024 6:14 AM EST [facility] Eosinophils Absolute 0.69(H) 0.00 - 0.50 K/mcL LAB HEMETOLOGY METHOD 10/17/2024 6:14 AM EST [facility] Basophils Absolute 0.12 0.00 - 0.20 K/mcL LAB HEMETOLOGY METHOD 10/17/2024 6:14 AM [facility] Immature Granulocytes Absolute 0.04(H) 0.00 - 0.03 K/[facility] LAB HEMETOLOGY METHOD 10/17/2024 6:14 AM EST [facility] Blood Venous blood specimen / Unknown Venipuncture / Unknown 10/17/2024 5:46 AM EST 10/17/2024 6:04 AM EST us Moshe HICKEY LAB BLOOD ORDERABLES Final Re sult [facility] [address] [place] [address], * (ABNORMAL) Comprehensive metabolic panel (10/17/2024 5:46 AM EST) Only the most recent of3 resultswithin the time period is included. Sodium 138 133 - 145 mmol/L LAB CHEMISTRY METHOD 10/17/2024 6:32 AM EST [facility] Potassium 4.2 3.5 - 5.5 mmol/L LAB CHEMISTRY METHOD 10/17/2024 6:32 AM [facility] Chloride 105 96 - 110 mmol/L LAB CHEMISTRY METHOD 10/17/2024 6:32 AM [facility] CO2 27 21 - 32 mmol/L LAB CHEMISTRY METHOD 10/17/2024 6:32 AM [facility] Anion Gap 6 3 - 11 LAB CHEMISTRY METHOD 10/17/2024 6:32 AM [facility] Glucose 107(H) 70 - 100 mg/dL LAB CHEMISTRY METHOD 10/17/2024 6:32 AM [facility] BUN 19 5 - 25 mg/dL LAB CHEMISTRY METHOD 10/17/2024 6:32 AM [facility] Creatinine 1.08 0.70 - 1.30 mg/dL LAB CHEMISTRY METHOD 10/17/2024 6:32 AM [facility] eGFR 73 >=60 mL/min/1. 73m2 LAB CHEMISTRY METHOD 10/17/2024 6:32 AM [facility] Comment:Calculation based on the??Chronic Kidney Disease Epidemiology Collaboration (CKD-EPI) equation refit??without adjustment for race. BUN/Creatinine Ratio 17.6 LAB CHEMISTRY METHOD 10/17/2024 6:32 AM [facility] Calcium 9.1 8.5 - 10.5 mg/dL LAB CHEMISTRY METHOD 10/17/2024 6:32 AM [facility] AST (SGOT) 17 10 - 42 unit/L LAB CHEMISTRY METHOD 10/17/2024 6:32 AM [facility] ALT (SGPT) 30 10 - 60 unit/L LAB CHEMISTRY METHOD 10/17/2024 6:32 AM [facility] Alkaline Phosphatase 76 42 - 121 unit/L LAB CHEMISTRY METHOD 10/17/2024 6:32 AM [facility] Total Protein 6.3 6.0 - 8.0 g/dL LAB CHEMISTRY METHOD 10/17/2024 6:32 AM [facility] Albumin 2.9(L) 3.2 - 5.0 g/dL LAB CHEMISTRY METHOD 10/17/2024 6:32 AM EST [facility] Total Bilirubin 0.9 0.0 - 1.4 mg/dL LAB CHEMISTRY METHOD 10/17/2024 6:32 AM [facility] Blood Venous blood specimen / Unknown Venipuncture / Unknown 10/17/2024 5:46 AM EST 10/17/2024 6:04 AM EST us Moshe HICKEY LAB BLOOD ORDERABLES Final Re sult [facility] [address] [place] [address], * (ABNORMAL) Complete blood count (10/10/2024 7:22 AM EST) WBC 9.1 4.8 - 10.8 K/mcL LAB HEMETOLOGY METHOD 10/10/2024 11:49 AM [facility] RBC 4.40(L) 4.50 - 5.50 M/mcL LAB HEMETOLOGY METHOD 10/10/2024 11:49 AM [facility] Hemoglobin 14.9 13.5 - 17.5 g/dL LAB HEMETOLOGY METHOD 10/10/2024 11:49 AM [facility] Hematocrit 44.3 42.0 - 54.0 % LAB HEMETOLOGY METHOD 10/10/2024 11:49 AM [facility] MCV 100.2(H) 79.0 - 98.0 FL LAB HEMETOLOGY METHOD 10/10/2024 11:49 AM [facility] MCH 33.7(H) 27.0 - 32.0 pcg LAB HEMETOLOGY METHOD 10/10/2024 11:49 AM [facility] MCHC 33.6 32.0 - 37.0 g/dL LAB HEMETOLOGY METHOD 10/10/2024 11:49 AM EST [facility] RDW 13.0 11.0 - 15.0 % LAB HEMETOLOGY METHOD 10/10/2024 11:49 AM [facility] Platelets 318 130 - 400 K/mcL LAB HEMETOLOGY METHOD 10/10/2024 11:49 AM [facility] MPV 11.8(H) 7.0 - 11.0 FL LAB HEMETOLOGY METHOD 10/10/2024 11:49 AM EST [facility] NRBC 0.0 <1.0 % LAB HEMETOLOGY METHOD 10/10/2024 11:49 AM [facility] NRBC Absolute 0.00 <0.10 K/mcL LAB HEMETOLOGY METHOD 10/10/2024 11:49 AM EST [facility] Blood Venous blood specimen / Unknown Venipuncture / Unknown 10/10/2024 7:22 AM EST 10/10/2024 11:30 AM EST Sara Blanc MD LAB BLOOD ORDERABLES Final Res ult [facility] [address] [place] [address], * Magnesium (10/05/2024 5:24 AM EST) Magnesium 2.1 1.9 - 2.6 mg/dL LAB CHEMISTRY METHOD 10/05/2024 12:10 PM EST [facility] Blood Venous blood specimen / Unknown Venipuncture / Unknown 10/05/2024 5:24 AM EST 10/05/2024 10:54 AM EST Sara Blanc MD LAB BLOOD ORDERABLES Final Res ult [facility] [address] [place] [address], [place] [phone] from Last 3 Months Insurance MEDICARE [facility] Advance Directives Documents on File Type Date 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 Care Teams Fresh Meat Grader Relationship Specialty Start Date End Date Fausto Pat NP [address] [facility] [place] PCP - General Family Medicine 10/17/24
--- OUTSIDE RECORDS SUMMARY | 2024-12-07 11:32 | XMS_ITS | Encounter Summary ---
Author Organization [facility] Address [address] [place] [address] Care Team Providers Care Churn Operator Name Role Phone Fausto Pat NP Primary Care Provider Encounter Details Date Type Department Care Team (Late st Contact Info) Description 10/05/2024 Lab Requisition [facility] - Main Lab [address] [facility] [place] [address] Sara Blanc MD [address] [place] [id number] Encounter for other general examination Social History [...] CBC auto differential (10/05/2024 5:24 AM EST) [facility] Signature WBC 10.0 4.8 - 10.8 K/mcL [...] LAB HEMETOLOGY METHOD 10/05/2024 11:37 AM EST [facility] Blood Venous blood specimen / Unknown Venipuncture / Unknown 10/05/2024 5:24 AM EST 10/05/2024 10:54 AM EST Sara Blanc MD LAB BLOOD ORDERABLES Final Res ult [facility] [address] [place] [address], [place] [phone] * Magnesium (10/05/2024 5:24 AM EST) Magnesium 2.1 1.9 - 2.6 mg/dL LAB CHEMISTRY METHOD 10/05/2024 12:10 PM [facility] Blood Venous blood specimen / Unknown Venipuncture / Unknown 10/05/2024 5:24 AM EST 10/05/2024 10:54 AM EST Sara Blanc MD LAB BLOOD ORDERABLES Final Res ult [facility] [address] [place] [address], [place] [phone] * (ABNORMAL) Comprehensive metabolic panel (10/05/2024 5:24 [...] ORDERABLES Final Res ult Performing Organization Address City/State/[place] Co de Phone Number [facility] ([facility]) [facility] [address] [place] [address], documented in this encounter Visit Diagnoses Diagnosis Encounter for other general examination documented in this encounter Care Teams Churn Operator Relationship Specialty Start Date End Date Fausto Pat NP [address] [place], [place] PCP - General Family Medicine 10/17/24 documented as of this encounter
--- OUTSIDE RECORDS SUMMARY | 2024-12-07 11:33 | XMS_ITS | Encounter Summary ---
Author Organization [facility] Address [address] [place] [address] Care Team Providers Care Chemicals Fermentation Operator Name Role Phone Fausto Pat NP Primary Care Provider Encounter Details Date Type Department Care Team (Late st Contact Info) Description 10/10/2024 Lab Requisition [facility] - Main Lab [address] [place] [address] Sara Blanc MD [address] [place] [address] Encounter for other general examination Social History [...] Complete blood count (10/10/2024 7:22 AM EST) [facility] WBC 9.1 4.8 - 10.8 K/mcL LAB HEMETOLOGY METHOD 10/10/2024 11:49 AM [facility] RBC 4.40(L) 4.50 - 5.50 M/mcL LAB HEMETOLOGY METHOD 10/10/2024 11:49 AM [facility] Hemoglobin 14.9 13.5 - 17.5 g/dL LAB HEMETOLOGY METHOD 10/10/2024 11:49 AM [facility] Hematocrit 44.3 42.0 - 54.0 % LAB HEMETOLOGY METHOD 10/10/2024 11:49 AM [facility] MCV 100.2(H) 79.0 - 98.0 FL LAB HEMETOLOGY METHOD 10/10/2024 11:49 AM [facility] MCH 33.7(H) 27.0 - 32.0 pcg LAB HEMETOLOGY METHOD 10/10/2024 11:49 AM [facility] MCHC 33.6 32.0 - 37.0 g/dL LAB HEMETOLOGY METHOD 10/10/2024 11:49 AM [facility] RDW 13.0 11.0 - 15.0 % LAB HEMETOLOGY METHOD 10/10/2024 11:49 AM [facility] Platelets 318 130 - 400 K/mcL LAB HEMETOLOGY METHOD 10/10/2024 11:49 AM [facility] MPV 11.8(H) 7.0 - 11.0 FL LAB HEMETOLOGY METHOD 10/10/2024 11:49 AM [facility] NRBC 0.0 <1.0 % LAB HEMETOLOGY METHOD 10/10/2024 11:49 AM [facility] NRBC Absolute 0.00 <0.10 K/mcL LAB HEMETOLOGY METHOD 10/10/2024 11:49 AM [facility] Blood Venous blood specimen / Unknown Venipuncture / Unknown 10/10/2024 7:22 AM EST 10/10/2024 11:30 AM EST us Sara Blanc MD LAB BLOOD ORDERABLES Final Res ult [facility] [address] [place] [address], [place] [phone] * Comprehensive metabolic panel (10/10/2024 7:22 AM EST) Sodium 139 133 - 145 mmol/L LAB CHEMISTRY METHOD 10/10/2024 1:03 PM [facility] Potassium 4.2 3.5 - 5.5 mmol/L LAB CHEMISTRY METHOD 10/10/2024 1:03 PM [facility] Chloride 103 96 - 110 mmol/L LAB CHEMISTRY METHOD 10/10/2024 1:03 PM [facility] CO2 31 21 - 32 mmol/L LAB CHEMISTRY METHOD 10/10/2024 1:03 PM [facility] Anion Gap 5 3 - 11 LAB CHEMISTRY METHOD 10/10/2024 1:03 PM [facility] Glucose 81 70 - 100 mg/dL LAB CHEMISTRY METHOD 10/10/2024 1:03 PM [facility] BUN 18 5 - 25 mg/dL LAB CHEMISTRY METHOD 10/10/2024 1:03 PM [facility] Creatinine 0.93 0.70 - 1.30 mg/dL LAB CHEMISTRY METHOD 10/10/2024 1:03 PM [facility] eGFR 88 >=60 mL/min/1. 73m2 LAB CHEMISTRY METHOD 10/10/2024 1:03 PM [facility] Comment:Calculation based on the??Chronic Kidney Disease Epidemiology Collaboration (CKD-EPI) equation refit??without adjustment for race. BUN/Creatinine Ratio 19.4 LAB CHEMISTRY METHOD 10/10/2024 1:03 PM [facility] Calcium 9.6 8.5 - 10.5 mg/dL LAB CHEMISTRY METHOD 10/10/2024 1:03 PM [facility] AST (SGOT) 33 10 - 42 unit/L LAB CHEMISTRY METHOD 10/10/2024 1:03 PM [facility] ALT (SGPT) 39 10 - 60 unit/L LAB CHEMISTRY METHOD 10/10/2024 1:03 PM [facility] Alkaline Phosphatase 90 42 - 121 unit/L LAB CHEMISTRY METHOD 10/10/2024 1:03 PM [facility] Total Protein 7.3 6.0 - 8.0 g/dL LAB CHEMISTRY METHOD 10/10/2024 1:03 PM [facility] Albumin 3.6 3.2 - 5.0 g/dL LAB CHEMISTRY METHOD 10/10/2024 1:03 PM [facility] Total Bilirubin 1.4 0.0 - 1.4 mg/dL LAB CHEMISTRY METHOD 10/10/2024 1:03 PM [facility] Blood Venous blood specimen / Unknown Venipuncture / Unknown 10/10/2024 7:22 AM EST 10/10/2024 11:30 AM EST us Sara Blanc MD LAB BLOOD ORDERABLES Final Res ult [facility] [address] [place] [address], documented in this encounter Visit Diagnoses Diagnosis Encounter for other general examination documented in this encounter Care Teams Chemicals Fermentation Operator Relationship Specialty Start Date End Date Fausto Pat NP [address] [place], [place] PCP - General Family Medicine 10/17/24 documented as of this encounter
[2024-12-07 11:45] LABS: Vancomycin Trough 10.7 mcg/mL (10.0-20.0)
[2024-12-07 12:07] LABS: Alanine Aminotransferase 21 U/L (0-40); Albumin Level 3.9 g/dL (3.5-5.0); Alkaline Phosphatase 84 U/L (39-117); Anion Gap 9 (12-20); Aspartate Amino Transferase 19 U/L (5-37); Bilirubin Total 0.6 mg/dL (0.0-1.0); Blood Urea Nitrogen 22 mg/dL (9-16); Calcium 9.6 mg/dL (8.4-10.2); Carbon Dioxide 27 mmol/L (22-29); Chloride 107 mmol/L (96-108); Estimated Glomerular Filt Rate > 60; Glucose Random 97 mg/dL (60-115); Potassium 4.3 mmol/L (3.3-5.1); Sodium 139 mmol/L (135-145); Total Protein 7.3 g/dL (6.5-8.0)
== END 2024-12-07 10:06 | disposition home or self-care (01) ==
LOC: HO.HVNA 10:05
PROVIDERS: Visit Provider Internal Medicine
DX: T81.41XA Infection following a procedure, superficial incisional surgical site, initial encounter (principal)
CPT/HCPCS: 36415; 80053; 80202; 85025

== ENCOUNTER 2024-12-13 13:02 | Outpatient (AMB) | payer MEDICARE, SELFPAY ==
[2024-12-13 13:05] VITALS: PULSE 65; O2SAT 99; BMI 34.0
--- NOTE | 2024-12-13 13:05 | A.OFFVIS_ITS ---
Vital Signs 12/13/24 13:05 Height 5 ft 10 in Weight 237 lb BMI 34.0 Pulse 65 Pulse Source Pulse Oximeter Pulse Oximetry (%) 99 Oxygen Delivery Method Room Air Intake Visit Reasons: hmc reff/rt quad tendon/vanco picc Allergies No Known Allergies [No Known Allergies*] Allergy (Verified 12/13/24 13:05) HPI HPI hmc reff/rt quad tendon/vanco picc: Details: He has been doing better with walking on right leg. He has no fever or chills and has no concerns. He is seeing Dr Celis. He has been on Vancomycin with no concerns and is done on 12/18. He has a device to walk with. [facility] Medical History First degree atrioventricular block by electrocardiogram Anemia Subclinical hypothyroidism Cellulitis Dyslipidemia Obesity HTN (hypertension) Rupture of right quadriceps tendon Gout Paronychia of great toe Elevated TSH Screening PSA (prostate specific antigen) Varicose veins of both lower extremities Surgical History History of amputation of left great toe (07/01/22) Hx of hand surgery Status post debridement (06/16/22) Hx of vascular surgery Hx of colonoscopy Family History Father HTN (hypertension) Mother Parkinsons disease Social History Household Members: None Housing: House Are you a primary coronary care unit nurse to a significant other at home: No Do you presently have visiting nurse or other home services: No Alcohol intake: current Alcohol intake frequency: holidays/special occasions only Comment: COUNTS CORRECT Patient Tobacco Use Status: Never used Tobacco e-Cigarette/Vaping Use: Never Used Second Hand Smoke Exposure: No Advance Directives Date on File: 10/13/23 service: No Current occupational status: retired Cognitive needs: No Hearing needs: No Vision needs: No Review of Systems Const All systems reviewed & are unremarkable except as noted in HPI and below Physical Exam Vital Signs: Last Vital Signs Pulse 65 12/13/24 13:05 Pulse Ox 99 12/13/24 13:05 Oxygen Delivery Method Room Air 12/13/24 13:05 BMI result Body Mass Index 34.0 Const General: cooperative Orientation/consciousness: patient oriented x3 HEENT Head: Yes normal to inspection Mouth: Normal oral and palatal mucosa present Eyes General: appearance normal, both eyes and all related structures Pupils: Equal, round and reactive pupils present Resp Effort & Inspection: normal respiratory effort Cardio Rate: regular rate Rhythm: regular rhythm GI Palpation (GI): Soft to palpation and nontender General: Yes no CVA tenderness Back/Spine/Pelvis Back: no CVA tenderness Skin General skin exam: no rashes or lesions noted Neuro General: patient oriented x3 Cranial nerves: Yes CN's II-XII intact bilaterally and Yes Equal, round and reactive pupils present Extrem Other: healing right leg Psych Appearance: grossly normal Assessment & Plan Assessment & Plan (1) Surgical site infection: Comment: Finish IV Vancomycin on 12/18 (letter written). Po Doxycycline 100 mg bid,one month and one refill. See prn need,no further visits at this time,follow with Orthopedics. Code(s): T81.49XA - Infection following a procedure, other surgical site, initial encounter Category: Medical Plan: na (2) Rupture of right quadriceps tendon: Comment: repair 09/29/24 with re-rupture on 09/30/24 Repair again performed on 10/13/24 *Right quad tendon irrigation and debridement 11/03/2024 Code(s): S76.111A - Strain of right quadriceps muscle, fascia and tendon, initial encounter Category: Medical Qualifiers: Encounter type: initial encounter Qualified Code(s): S76.111A - Strain of right quadriceps muscle, fascia and tendon, initial encounter Plan: na (3) Surgical site infection: Code(s): T81.49XA - Infection following a procedure, other surgical site, initial encounter Category: Medical Plan: na Orders: Orders IR cvc remove any age Today T81.49XA - Infection following a procedure, other surgical site, initial encounter Medications: New doxycycline hyclate 100 mg PO BID 30 days 60 caps 1RF Coding Level of Care Code Est Pt Level 3 (36964) Diagnoses Surgical site infection T81.49XA Rupture of right quadriceps tendon, initial encounter S76.111A Encounter type: initial encounter
--- OUTSIDE RECORDS SUMMARY | 2024-12-13 14:18 | XMS_ITS | Encounter Summary ---
Author Organization [facility] Address [address] [place] [address] Care Team Providers Care Bracelet Maker Novelty Name Role Phone Fausto Pat NP Primary Care Provider Encounter Details Date Type Department Care Team (Late st Contact Info) Description 10/10/2024 Lab Requisition [facility] - Main Lab [address] [place] [address] Sara Blanc MD [address] [place] [address] Encounter for other general examination Social History [...] Complete blood count (10/10/2024 7:22 AM EST) [facility] WBC 9.1 4.8 - 10.8 K/mcL LAB HEMETOLOGY METHOD 10/10/2024 11:49 AM [facility] RBC 4.40(L) 4.50 - 5.50 M/mcL LAB HEMETOLOGY METHOD 10/10/2024 11:49 AM [facility] Hemoglobin 14.9 13.5 - 17.5 g/dL LAB HEMETOLOGY METHOD 10/10/2024 11:49 AM [facility] Hematocrit 44.3 42.0 - 54.0 % LAB HEMETOLOGY METHOD 10/10/2024 11:49 AM [facility] MCV 100.2(H) 79.0 - 98.0 FL LAB HEMETOLOGY METHOD 10/10/2024 11:49 AM [facility] MCH 33.7(H) 27.0 - 32.0 pcg LAB HEMETOLOGY METHOD 10/10/2024 11:49 AM [facility] MCHC 33.6 32.0 - 37.0 g/dL LAB HEMETOLOGY METHOD 10/10/2024 11:49 AM [facility] RDW 13.0 11.0 - 15.0 % LAB HEMETOLOGY METHOD 10/10/2024 11:49 AM [facility] Platelets 318 130 - 400 K/mcL LAB HEMETOLOGY METHOD 10/10/2024 11:49 AM [facility] MPV 11.8(H) 7.0 - 11.0 FL LAB HEMETOLOGY METHOD 10/10/2024 11:49 AM [facility] NRBC 0.0 <1.0 % LAB HEMETOLOGY METHOD 10/10/2024 11:49 AM [facility] NRBC Absolute 0.00 <0.10 K/mcL LAB HEMETOLOGY METHOD 10/10/2024 11:49 AM [facility] Blood Venous blood specimen / Unknown Venipuncture / Unknown 10/10/2024 7:22 AM EST 10/10/2024 11:30 AM EST us Sara Blanc MD LAB BLOOD ORDERABLES Final Res ult [facility] [address] [place] [address], [place] [phone] * Comprehensive metabolic panel (10/10/2024 7:22 AM EST) Sodium 139 133 - 145 mmol/L LAB CHEMISTRY METHOD 10/10/2024 1:03 PM [facility] Potassium 4.2 3.5 - 5.5 mmol/L LAB CHEMISTRY METHOD 10/10/2024 1:03 PM [facility] Chloride 103 96 - 110 mmol/L LAB CHEMISTRY METHOD 10/10/2024 1:03 PM [facility] CO2 31 21 - 32 mmol/L LAB CHEMISTRY METHOD 10/10/2024 1:03 PM [facility] Anion Gap 5 3 - 11 LAB CHEMISTRY METHOD 10/10/2024 1:03 PM [facility] Glucose 81 70 - 100 mg/dL LAB CHEMISTRY METHOD 10/10/2024 1:03 PM [facility] BUN 18 5 - 25 mg/dL LAB CHEMISTRY METHOD 10/10/2024 1:03 PM [facility] Creatinine 0.93 0.70 - 1.30 mg/dL LAB CHEMISTRY METHOD 10/10/2024 1:03 PM [facility] eGFR 88 >=60 mL/min/1. 73m2 LAB CHEMISTRY METHOD 10/10/2024 1:03 PM [facility] Comment:Calculation based on the??Chronic Kidney Disease Epidemiology Collaboration (CKD-EPI) equation refit??without adjustment for race. BUN/Creatinine Ratio 19.4 LAB CHEMISTRY METHOD 10/10/2024 1:03 PM [facility] Calcium 9.6 8.5 - 10.5 mg/dL LAB CHEMISTRY METHOD 10/10/2024 1:03 PM [facility] AST (SGOT) 33 10 - 42 unit/L LAB CHEMISTRY METHOD 10/10/2024 1:03 PM [facility] ALT (SGPT) 39 10 - 60 unit/L LAB CHEMISTRY METHOD 10/10/2024 1:03 PM [facility] Alkaline Phosphatase 90 42 - 121 unit/L LAB CHEMISTRY METHOD 10/10/2024 1:03 PM [facility] Total Protein 7.3 6.0 - 8.0 g/dL LAB CHEMISTRY METHOD 10/10/2024 1:03 PM [facility] Albumin 3.6 3.2 - 5.0 g/dL LAB CHEMISTRY METHOD 10/10/2024 1:03 PM [facility] Total Bilirubin 1.4 0.0 - 1.4 mg/dL LAB CHEMISTRY METHOD 10/10/2024 1:03 PM [facility] Blood Venous blood specimen / Unknown Venipuncture / Unknown 10/10/2024 7:22 AM EST 10/10/2024 11:30 AM EST us Sara Blanc MD LAB BLOOD ORDERABLES Final Res ult [facility] [address] [place] [address], documented in this encounter Visit Diagnoses Diagnosis Encounter for other general examination documented in this encounter Care Teams Bracelet Maker Novelty Relationship Specialty Start Date End Date Fausto Pat NP [address] [place], [place] PCP - General Family Medicine 10/17/24 documented as of this encounter
--- OUTSIDE RECORDS SUMMARY | 2024-12-13 14:18 | XMS_ITS | Encounter Summary ---
Author Organization [facility] Address [address] [place] [address] Care Team Providers Care Dough Raiser Name Role Phone Fausto Pat NP Primary Care Provider Encounter Details Date Type Department Care Team (Late st Contact Info) Description 10/05/2024 Lab Requisition [facility] - Main Lab [address] [facility] [place] [address] Sara Blanc MD [address] [place] [id number] Encounter for other general examination Social History [...] CBC auto differential (10/05/2024 5:24 AM EST) [facility] Signature WBC 10.0 4.8 - 10.8 K/mcL LAB HEMETOLOGY METHOD 10/05/2024 11:37 AM [facility] RBC 4.30(L) 4.50 - 5.50 M/mcL LAB HEMETOLOGY METHOD 10/05/2024 11:37 AM [facility] Hemoglobin 14.3 13.5 - 17.5 g/dL LAB HEMETOLOGY METHOD 10/05/2024 11:37 AM [facility] Hematocrit 42.4 42.0 - 54.0 % LAB HEMETOLOGY METHOD 10/05/2024 11:37 AM [facility] MCV 99.3(H) 79.0 - 98.0 FL LAB HEMETOLOGY METHOD 10/05/2024 11:37 AM [facility] MCH 33.5(H) 27.0 - 32.0 pcg LAB HEMETOLOGY METHOD 10/05/2024 11:37 AM [facility] MCHC 33.7 32.0 - 37.0 g/dL LAB HEMETOLOGY METHOD 10/05/2024 11:37 AM [facility] RDW 13.1 11.0 - 15.0 % LAB HEMETOLOGY METHOD 10/05/2024 11:37 AM [facility] Platelets 322 130 - 400 K/mcL LAB HEMETOLOGY METHOD 10/05/2024 11:37 AM [facility] MPV 10.9 7.0 - 11.0 FL LAB HEMETOLOGY METHOD 10/05/2024 11:37 AM [facility] NRBC 0.0 <1.0 % LAB HEMETOLOGY METHOD 10/05/2024 11:37 AM [facility] NRBC Absolute 0.00 <0.10 K/mcL LAB HEMETOLOGY METHOD 10/05/2024 11:37 AM [facility] Neutrophils Relative 72.7 % LAB HEMETOLOGY METHOD 10/05/2024 11:37 AM [facility] Lymphocytes Relative 11.5 % LAB HEMETOLOGY METHOD 10/05/2024 11:37 AM [facility] Monocytes Relative 9.5 % LAB HEMETOLOGY METHOD 10/05/2024 11:37 AM [facility] Eosinophils Relative 4.7 % LAB HEMETOLOGY METHOD 10/05/2024 11:37 AM [facility] Basophils Relative 1.1 % LAB HEMETOLOGY METHOD 10/05/2024 11:37 AM [facility] Immature Granulocytes Relative 0.5 % LAB HEMETOLOGY METHOD 10/05/2024 11:37 AM [facility] Neutrophils Absolute 7.28(H) 1.50 - 7.00 K/mcL LAB HEMETOLOGY METHOD 10/05/2024 11:37 AM [facility] Lymphocytes Absolute 1.15 1.00 - 5.00 K/mcL LAB HEMETOLOGY METHOD 10/05/2024 11:37 AM [facility] Monocytes Absolute 0.95 0.20 - 1.00 K/mcL LAB HEMETOLOGY METHOD 10/05/2024 11:37 AM [facility] Eosinophils Absolute 0.47 0.00 - 0.50 K/mcL LAB HEMETOLOGY METHOD 10/05/2024 11:37 AM [facility] Basophils Absolute 0.11 0.00 - 0.20 K/mcL LAB HEMETOLOGY METHOD 10/05/2024 11:37 AM [facility] Immature Granulocytes Absolute 0.05(H) 0.00 - 0.03 K/mcL LAB HEMETOLOGY METHOD 10/05/2024 11:37 AM EST [facility] Blood Venous blood specimen / Unknown Venipuncture / Unknown 10/05/2024 5:24 AM EST 10/05/2024 10:54 AM EST Sara Blanc MD LAB BLOOD ORDERABLES Final Res ult [facility] [address] [place] [address], [place] [phone] * Magnesium (10/05/2024 5:24 AM EST) Magnesium 2.1 1.9 - 2.6 mg/dL LAB CHEMISTRY METHOD 10/05/2024 12:10 PM [facility] Blood Venous blood specimen / Unknown Venipuncture / Unknown 10/05/2024 5:24 AM EST 10/05/2024 10:54 AM EST Sara Blanc MD LAB BLOOD ORDERABLES Final Res ult [facility] [address] [place] [address], [place] [phone] * (ABNORMAL) Comprehensive metabolic panel (10/05/2024 5:24 AM EST) Sodium 139 133 - 145 mmol/L LAB CHEMISTRY METHOD 10/05/2024 12:16 PM [facility] Potassium 4.1 3.5 - 5.5 mmol/L LAB CHEMISTRY METHOD 10/05/2024 12:16 PM [facility] Chloride 103 96 - 110 mmol/L LAB CHEMISTRY METHOD 10/05/2024 12:16 PM [facility] CO2 26 21 - 32 mmol/L LAB CHEMISTRY METHOD 10/05/2024 12:16 PM [facility] Anion Gap 10 3 - 11 LAB CHEMISTRY METHOD 10/05/2024 12:16 PM [facility] Glucose 82 70 - 100 mg/dL LAB CHEMISTRY METHOD 10/05/2024 12:16 PM [facility] BUN 17 5 - 25 mg/dL LAB CHEMISTRY METHOD 10/05/2024 12:16 PM [facility] Creatinine 0.97 0.70 - 1.30 mg/dL LAB CHEMISTRY METHOD 10/05/2024 12:16 PM [facility] eGFR 83 >=60 mL/min/1. 73m2 LAB CHEMISTRY METHOD 10/05/2024 12:16 PM [facility] Comment:Calculation based on the??Chronic Kidney Disease Epidemiology Collaboration (CKD-EPI) equation refit??without adjustment for race. BUN/Creatinine Ratio 17.5 LAB CHEMISTRY METHOD 10/05/2024 12:16 PM [facility] Calcium 9.1 8.5 - 10.5 mg/dL LAB CHEMISTRY METHOD 10/05/2024 12:16 PM [facility] AST (SGOT) 25 10 - 42 unit/L LAB CHEMISTRY METHOD 10/05/2024 12:16 PM [facility] ALT (SGPT) 35 10 - 60 unit/L LAB CHEMISTRY METHOD 10/05/2024 12:16 PM [facility] Alkaline Phosphatase 83 42 - 121 unit/L LAB CHEMISTRY METHOD 10/05/2024 12:16 PM [facility] Total Protein 6.8 6.0 - 8.0 g/dL LAB CHEMISTRY METHOD 10/05/2024 12:16 PM [facility] Albumin 3.3 3.2 - 5.0 g/dL LAB CHEMISTRY METHOD 10/05/2024 12:16 PM [facility] Total Bilirubin 1.5(H) 0.0 - 1.4 mg/dL LAB CHEMISTRY METHOD 10/05/2024 12:16 PM [facility] Blood Venous blood specimen / Unknown Venipuncture / Unknown 10/05/2024 5:24 AM EST 10/05/2024 10:54 AM EST us Sara Blanc MD LAB BLOOD ORDERABLES Final Res ult Performing Organization Address City/State/[facility] Co de Phone Number [phone] [address] [place] [address], documented in this encounter Visit Diagnoses Diagnosis Encounter for other general examination documented in this encounter Care Teams Dough Raiser Relationship Specialty Start Date End Date Fausto Pat NP [address] [place], [place] PCP - General Family Medicine 10/17/24 documented as of this encounter
--- OUTSIDE RECORDS SUMMARY | 2024-12-13 14:18 | XMS_ITS | Clinical Summary ---
Author Organization [facility] Address [address] [place] [address] Phone Care Team Providers Care Diplomatic Interpreter Name Role Phone Fausto Pat NP Primary [...] Team Description 10/18/2024 Plan of Care Documentation [facility] [address] [place] [address] 10/16/2024 4:33 PM EST - 10/19/2024 11:05 AM EST Hospital Encounter [facility] [address] [place] [address] Cynthia Bentley, Discharge Disposition: Home or Self Care 10/10/2024 Lab Requisition [facility] [address] [place] [address] Sara Blanc MD Encounter for other general examination 10/05/2024 Lab Requisition [facility] [address] [place] [address] Sara Blanc MD Encounter for other general [...] - 100 mg/dL 10/17/2024 11:23 AM EST [facility] Blood Capillary blood specimen / Unknown 10/17/2024 11:23 AM EST 10/17/2024 11:26 AM EST us Cynthia Bentley DO LAB POINT OF CARE TEST DOCKED DEVICE UNSOLICITED RESULTS Final Result [facility] [address] [place] [address], [place] [phone] * (ABNORMAL) CBC auto differential (10/17/2024 5:46 AM EST) Only the most recent of2 resultswithin the time period is included. [facility] WBC 9.8 4.8 - 10.8 K/mcL LAB HEMETOLOGY METHOD 10/17/2024 6:14 AM [facility] RBC 3.90(L) 4.50 - 5.50 M/mcL LAB HEMETOLOGY METHOD 10/17/2024 6:14 AM [facility] Hemoglobin 13.0(L) 13.5 - 17.5 g/dL LAB HEMETOLOGY METHOD 10/17/2024 6:14 AM [facility] Hematocrit 37.4(L) 42.0 - 54.0 % LAB HEMETOLOGY METHOD 10/17/2024 6:14 AM [facility] MCV 96.9 79.0 - 98.0 FL LAB HEMETOLOGY METHOD 10/17/2024 6:14 AM [facility] MCH 33.7(H) 27.0 - 32.0 pcg LAB HEMETOLOGY METHOD 10/17/2024 6:14 AM [facility] MCHC 34.8 32.0 - 37.0 g/dL LAB HEMETOLOGY METHOD 10/17/2024 6:14 AM [facility] RDW 12.9 11.0 - 15.0 % LAB HEMETOLOGY METHOD 10/17/2024 6:14 AM [facility] Platelets 228 130 - 400 K/mcL LAB HEMETOLOGY METHOD 10/17/2024 6:14 AM [facility] MPV 10.8 7.0 - 11.0 FL LAB HEMETOLOGY METHOD 10/17/2024 6:14 AM [facility] NRBC 0.0 <1.0 % LAB HEMETOLOGY METHOD 10/17/2024 6:14 AM [facility] NRBC Absolute 0.00 <0.10 K/mcL LAB HEMETOLOGY METHOD 10/17/2024 6:14 AM [facility] Neutrophils Relative 64.4 % LAB HEMETOLOGY METHOD 10/17/2024 6:14 AM [facility] Lymphocytes Relative 18.1 % LAB HEMETOLOGY METHOD 10/17/2024 6:14 AM [facility] Monocytes Relative 8.9 % LAB HEMETOLOGY METHOD 10/17/2024 6:14 AM [facility] Eosinophils Relative 7.0 % LAB HEMETOLOGY METHOD 10/17/2024 6:14 AM [facility] Basophils Relative 1.2 % LAB HEMETOLOGY METHOD 10/17/2024 6:14 AM [facility] Immature Granulocytes Relative 0.4 % LAB HEMETOLOGY METHOD 10/17/2024 6:14 AM EST [facility] Neutrophils Absolute 6.31 1.50 - 7.00 K/mcL LAB HEMETOLOGY METHOD 10/17/2024 6:14 AM EST [facility] Lymphocytes Absolute 1.78 1.00 - 5.00 K/mcL LAB HEMETOLOGY METHOD 10/17/2024 6:14 AM EST [facility] Monocytes Absolute 0.87 0.20 - 1.00 K/mcL LAB HEMETOLOGY METHOD 10/17/2024 6:14 AM EST [facility] Eosinophils Absolute 0.69(H) 0.00 - 0.50 K/mcL LAB HEMETOLOGY METHOD 10/17/2024 6:14 AM EST [facility] Basophils Absolute 0.12 0.00 - 0.20 K/mcL LAB HEMETOLOGY METHOD 10/17/2024 6:14 AM [facility] Immature Granulocytes Absolute 0.04(H) 0.00 - 0.03 K/[facility] LAB HEMETOLOGY METHOD 10/17/2024 6:14 AM EST [facility] Blood Venous blood specimen / Unknown Venipuncture / Unknown 10/17/2024 5:46 AM EST 10/17/2024 6:04 AM EST us Moshe HICKEY LAB BLOOD ORDERABLES Final Re sult [facility] [address] [place] [address], * (ABNORMAL) Comprehensive metabolic panel (10/17/2024 5:46 AM EST) Only the most recent of3 resultswithin the time period is included. Sodium 138 133 - 145 mmol/L LAB CHEMISTRY METHOD 10/17/2024 6:32 AM EST [facility] Potassium 4.2 3.5 - 5.5 mmol/L LAB CHEMISTRY METHOD 10/17/2024 6:32 AM [facility] Chloride 105 96 - 110 mmol/L LAB CHEMISTRY METHOD 10/17/2024 6:32 AM [facility] CO2 27 21 - 32 mmol/L LAB CHEMISTRY METHOD 10/17/2024 6:32 AM [facility] Anion Gap 6 3 - 11 LAB CHEMISTRY METHOD 10/17/2024 6:32 AM [facility] Glucose 107(H) 70 - 100 mg/dL LAB CHEMISTRY METHOD 10/17/2024 6:32 AM [facility] BUN 19 5 - 25 mg/dL LAB CHEMISTRY METHOD 10/17/2024 6:32 AM [facility] Creatinine 1.08 0.70 - 1.30 mg/dL LAB CHEMISTRY METHOD 10/17/2024 6:32 AM [facility] eGFR 73 >=60 mL/min/1. 73m2 LAB CHEMISTRY METHOD 10/17/2024 6:32 AM [facility] Comment:Calculation based on the??Chronic Kidney Disease Epidemiology Collaboration (CKD-EPI) equation refit??without adjustment for race. BUN/Creatinine Ratio 17.6 LAB CHEMISTRY METHOD 10/17/2024 6:32 AM [facility] Calcium 9.1 8.5 - 10.5 mg/dL LAB CHEMISTRY METHOD 10/17/2024 6:32 AM [facility] AST (SGOT) 17 10 - 42 unit/L LAB CHEMISTRY METHOD 10/17/2024 6:32 AM [facility] ALT (SGPT) 30 10 - 60 unit/L LAB CHEMISTRY METHOD 10/17/2024 6:32 AM [facility] Alkaline Phosphatase 76 42 - 121 unit/L LAB CHEMISTRY METHOD 10/17/2024 6:32 AM [facility] Total Protein 6.3 6.0 - 8.0 g/dL LAB CHEMISTRY METHOD 10/17/2024 6:32 AM [facility] Albumin 2.9(L) 3.2 - 5.0 g/dL LAB CHEMISTRY METHOD 10/17/2024 6:32 AM EST [facility] Total Bilirubin 0.9 0.0 - 1.4 mg/dL LAB CHEMISTRY METHOD 10/17/2024 6:32 AM [facility] Blood Venous blood specimen / Unknown Venipuncture / Unknown 10/17/2024 5:46 AM EST 10/17/2024 6:04 AM EST us Moshe HICKEY LAB BLOOD ORDERABLES Final Re sult [facility] [address] [place] [address], * (ABNORMAL) Complete blood count (10/10/2024 7:22 AM EST) WBC 9.1 4.8 - 10.8 K/mcL LAB HEMETOLOGY METHOD 10/10/2024 11:49 AM [facility] RBC 4.40(L) 4.50 - 5.50 M/mcL LAB HEMETOLOGY METHOD 10/10/2024 11:49 AM [facility] Hemoglobin 14.9 13.5 - 17.5 g/dL LAB HEMETOLOGY METHOD 10/10/2024 11:49 AM [facility] Hematocrit 44.3 42.0 - 54.0 % LAB HEMETOLOGY METHOD 10/10/2024 11:49 AM [facility] MCV 100.2(H) 79.0 - 98.0 FL LAB HEMETOLOGY METHOD 10/10/2024 11:49 AM [facility] MCH 33.7(H) 27.0 - 32.0 pcg LAB HEMETOLOGY METHOD 10/10/2024 11:49 AM [facility] MCHC 33.6 32.0 - 37.0 g/dL LAB HEMETOLOGY METHOD 10/10/2024 11:49 AM EST [facility] RDW 13.0 11.0 - 15.0 % LAB HEMETOLOGY METHOD 10/10/2024 11:49 AM [facility] Platelets 318 130 - 400 K/mcL LAB HEMETOLOGY METHOD 10/10/2024 11:49 AM [facility] MPV 11.8(H) 7.0 - 11.0 FL LAB HEMETOLOGY METHOD 10/10/2024 11:49 AM EST [facility] NRBC 0.0 <1.0 % LAB HEMETOLOGY METHOD 10/10/2024 11:49 AM [facility] NRBC Absolute 0.00 <0.10 K/mcL LAB HEMETOLOGY METHOD 10/10/2024 11:49 AM EST [facility] Blood Venous blood specimen / Unknown Venipuncture / Unknown 10/10/2024 7:22 AM EST 10/10/2024 11:30 AM EST Sara Blanc MD LAB BLOOD ORDERABLES Final Res ult [facility] [address] [place] [address], * Magnesium (10/05/2024 5:24 AM EST) Magnesium 2.1 1.9 - 2.6 mg/dL LAB CHEMISTRY METHOD 10/05/2024 12:10 PM EST [facility] Blood Venous blood specimen / Unknown Venipuncture / Unknown 10/05/2024 5:24 AM EST 10/05/2024 10:54 AM EST Sara Blanc MD LAB BLOOD ORDERABLES Final Res ult [facility] [address] [place] [address], [place] [phone] from Last 3 Months Insurance MEDICARE [facility] Advance Directives Documents on File Type Date Recorded 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 Care Teams Diplomatic Interpreter Relationship Specialty Start Date End Date Fausto Pat NP [address] [facility] [place] PCP - General Family Medicine 10/17/24
== END 2024-12-13 14:46 | disposition home or self-care (01) ==
LOC: HO.HID 13:02
PROVIDERS: PCP Nurse Practitioner Family; Visit Provider Internal Medicine
DX: T81.49XA Infection following a procedure, other surgical site, initial encounter (principal); S76.111A Strain of right quadriceps muscle, fascia and tendon, initial encounter
CPT/HCPCS: 99213

== ENCOUNTER → 2024-12-13 13:02 | Outpatient (BNVA) | payer MEDICARE, SELFPAY | PROVIDERS: PCP Nurse Practitioner Family; Visit Provider Internal Medicine | DX: T81.49XA Infection following a procedure, other surgical site, initial encounter (principal); S76.111A Strain of right quadriceps muscle, fascia and tendon, initial encounter; Z79.2 Long term (current) use of antibiotics | CPT/HCPCS: 99212 ==

== ENCOUNTER 2024-12-14 09:58 | Outpatient (REF) | payer MEDICARE, SELFPAY ==
[2024-12-14 10:01] LABS: MANUAL DIFF FLAG NO
[2024-12-14 10:52] LABS: Basophils Absolute Auto 0.1 X10*3/uL (0.0-0.2); Basophils Percent Auto 1.4 % (0-2); Eosinophils Absolute Auto 0.4 X10*3/uL (0.0-0.4); Eosinophils Percent Auto 4.8 % (0-4); Hematocrit 39.9 % (42.0-52.0); Hemoglobin 13.7 g/dl (14.0-18.0); Imm Gran Abs Auto 0.03 X10*3/uL (0.00-0.03); Imm Gran Pct Auto 0.3 % (0.0-0.4); Lymphocytes Absolute Auto 1.1 X10*3/uL (1.2-4.9); Lymphocytes Percent Auto 12.1 % (20-40); Mean Corpuscular HGB Conc 34.3 g/dl (31.0-36.0); Mean Corpuscular Hemoglobin 31.4 pg (27.0-33.0); Mean Corpuscular Volume 91.3 fL (80.0-98.0); Monocytes Absolute Auto 0.8 X10*3/uL (0.1-1.2); Monocytes Percent Auto 9.6 % (2-11); Neutrophils Absolute Auto 6.3 x10*3/uL (2.0-8.3); Neutrophils Percent Auto 71.8 % (45-73); Platelet Count 286 X10*3/uL (160-400); Red Blood Count 4.37 X10*6/uL (4.60-5.80); Red Cell Distribution Width 14.1 % (11.0-16.0); White Blood Count 8.7 X10*3/uL (4.8-10.8)
[2024-12-14 10:57] LABS: Vancomycin Trough 10.5 mcg/mL (10.0-20.0)
[2024-12-14 11:07] LABS: Alanine Aminotransferase 26 U/L (0-40); Albumin Level 3.8 g/dL (3.5-5.0); Alkaline Phosphatase 78 U/L (39-117); Anion Gap 12 (12-20); Aspartate Amino Transferase 24 U/L (5-37); Bilirubin Total 0.6 mg/dL (0.0-1.0); Blood Urea Nitrogen 19 mg/dL (9-16); Calcium 9.5 mg/dL (8.4-10.2); Carbon Dioxide 22 mmol/L (22-29); Chloride 109 mmol/L (96-108); Estimated Glomerular Filt Rate > 60; Glucose Random 127 mg/dL (60-115); Potassium 3.8 mmol/L (3.3-5.1); Sodium 139 mmol/L (135-145); Total Protein 7.3 g/dL (6.5-8.0)
--- OUTSIDE RECORDS SUMMARY | 2024-12-14 11:10 | XMS_ITS | Encounter Summary ---
Author Organization [facility] Address [address] [place] [address] Care Team Providers Care Fisher Weir Name Role Phone Fausto Pat NP Primary Care Provider Encounter Details Date Type Department Care Team (Late st Contact Info) Description 10/05/2024 Lab Requisition [facility] [address] [facility] [place] [address] Sara Blanc MD [address] [place] [phone] Encounter for other general examination Social History [...] CBC auto differential (10/05/2024 5:24 AM EST) [facility] Signature WBC 10.0 4.8 - 10.8 K/mcL LAB HEMETOLOGY METHOD 10/05/2024 11:37 AM [facility] RBC 4.30(L) 4.50 - 5.50 M/mcL LAB HEMETOLOGY METHOD 10/05/2024 11:37 AM [facility] Hemoglobin 14.3 13.5 - 17.5 g/dL LAB HEMETOLOGY METHOD 10/05/2024 11:37 AM [facility] Hematocrit 42.4 42.0 - 54.0 % LAB HEMETOLOGY METHOD 10/05/2024 11:37 AM [facility] MCV 99.3(H) 79.0 - 98.0 FL LAB HEMETOLOGY METHOD 10/05/2024 11:37 AM [facility] MCH 33.5(H) 27.0 - 32.0 pcg LAB HEMETOLOGY METHOD 10/05/2024 11:37 AM [facility] MCHC 33.7 32.0 - 37.0 g/dL LAB HEMETOLOGY METHOD 10/05/2024 11:37 AM [facility] RDW 13.1 11.0 - 15.0 % LAB HEMETOLOGY METHOD 10/05/2024 11:37 AM [facility] Platelets 322 130 - 400 K/mcL LAB HEMETOLOGY METHOD 10/05/2024 11:37 AM [facility] MPV 10.9 7.0 - 11.0 FL LAB HEMETOLOGY METHOD 10/05/2024 11:37 AM [facility] NRBC 0.0 <1.0 % LAB HEMETOLOGY METHOD 10/05/2024 11:37 AM [facility] NRBC Absolute 0.00 <0.10 K/mcL LAB HEMETOLOGY METHOD 10/05/2024 11:37 AM [facility] Neutrophils Relative 72.7 % LAB HEMETOLOGY METHOD 10/05/2024 11:37 AM [facility] Lymphocytes Relative 11.5 % LAB HEMETOLOGY METHOD 10/05/2024 11:37 AM [facility] Monocytes Relative 9.5 % LAB HEMETOLOGY METHOD 10/05/2024 11:37 AM [facility] Eosinophils Relative 4.7 % LAB HEMETOLOGY METHOD 10/05/2024 11:37 AM [facility] Basophils Relative 1.1 % LAB HEMETOLOGY METHOD 10/05/2024 11:37 AM [facility] Immature Granulocytes Relative 0.5 % LAB HEMETOLOGY METHOD 10/05/2024 11:37 AM [facility] Neutrophils Absolute 7.28(H) 1.50 - 7.00 K/mcL LAB HEMETOLOGY METHOD 10/05/2024 11:37 AM [facility] Lymphocytes Absolute 1.15 1.00 - 5.00 K/mcL LAB HEMETOLOGY METHOD 10/05/2024 11:37 AM [facility] Monocytes Absolute 0.95 0.20 - 1.00 K/mcL LAB HEMETOLOGY METHOD 10/05/2024 11:37 AM [facility] Eosinophils Absolute 0.47 0.00 - 0.50 K/mcL LAB HEMETOLOGY METHOD 10/05/2024 11:37 AM [facility] Basophils Absolute 0.11 0.00 - 0.20 K/mcL LAB HEMETOLOGY METHOD 10/05/2024 11:37 AM [facility] Immature Granulocytes Absolute 0.05(H) 0.00 - 0.03 K/mcL LAB HEMETOLOGY METHOD 10/05/2024 11:37 AM EST [facility] Blood Venous blood specimen / Unknown Venipuncture / Unknown 10/05/2024 5:24 AM EST 10/05/2024 10:54 AM EST Sara Blanc MD LAB BLOOD ORDERABLES Final Res ult [facility] [address] [place] [address], [place] [phone] * Magnesium (10/05/2024 5:24 AM EST) Magnesium 2.1 1.9 - 2.6 mg/dL LAB CHEMISTRY METHOD 10/05/2024 12:10 PM [facility] Blood Venous blood specimen / Unknown Venipuncture / Unknown 10/05/2024 5:24 AM EST 10/05/2024 10:54 AM EST Sara Blanc MD LAB BLOOD ORDERABLES Final Res ult [facility] [address] [place] [address], [place] [phone] * (ABNORMAL) Comprehensive metabolic panel (10/05/2024 5:24 AM EST) Sodium 139 133 - 145 mmol/L LAB CHEMISTRY METHOD 10/05/2024 12:16 PM [facility] Potassium 4.1 3.5 - 5.5 mmol/L LAB CHEMISTRY METHOD 10/05/2024 12:16 PM [facility] Chloride 103 96 - 110 mmol/L LAB CHEMISTRY METHOD 10/05/2024 12:16 PM [facility] CO2 26 21 - 32 mmol/L LAB CHEMISTRY METHOD 10/05/2024 12:16 PM [facility] Anion Gap 10 3 - 11 LAB CHEMISTRY METHOD 10/05/2024 12:16 PM [facility] Glucose 82 70 - 100 mg/dL LAB CHEMISTRY METHOD 10/05/2024 12:16 PM [facility] BUN 17 5 - 25 mg/dL LAB CHEMISTRY METHOD 10/05/2024 12:16 PM [facility] Creatinine 0.97 0.70 - 1.30 mg/dL LAB CHEMISTRY METHOD 10/05/2024 12:16 PM [facility] eGFR 83 >=60 mL/min/1. 73m2 LAB CHEMISTRY METHOD 10/05/2024 12:16 PM [facility] Comment:Calculation based on the??Chronic Kidney Disease Epidemiology Collaboration (CKD-EPI) equation refit??without adjustment for race. BUN/Creatinine Ratio 17.5 LAB CHEMISTRY METHOD 10/05/2024 12:16 PM [facility] Calcium 9.1 8.5 - 10.5 mg/dL LAB CHEMISTRY METHOD 10/05/2024 12:16 PM [facility] AST (SGOT) 25 10 - 42 unit/L LAB CHEMISTRY METHOD 10/05/2024 12:16 PM [facility] ALT (SGPT) 35 10 - 60 unit/L LAB CHEMISTRY METHOD 10/05/2024 12:16 PM [facility] Alkaline Phosphatase 83 42 - 121 unit/L LAB CHEMISTRY METHOD 10/05/2024 12:16 PM [facility] Total Protein 6.8 6.0 - 8.0 g/dL LAB CHEMISTRY METHOD 10/05/2024 12:16 PM [facility] Albumin 3.3 3.2 - 5.0 g/dL LAB CHEMISTRY METHOD 10/05/2024 12:16 PM [facility] Total Bilirubin 1.5(H) 0.0 - 1.4 mg/dL LAB CHEMISTRY METHOD 10/05/2024 12:16 PM [facility] Blood Venous blood specimen / Unknown Venipuncture / Unknown 10/05/2024 5:24 AM EST 10/05/2024 10:54 AM EST us Sara Blanc MD LAB BLOOD ORDERABLES Final Res ult Performing Organization Address City/State/[facility] Co de Phone Number [facility] [address] [place] [address], documented in this encounter Visit Diagnoses Diagnosis Encounter for other general examination documented in this encounter Care Teams Fisher Weir Relationship Specialty Start Date End Date Fausto Pat NP [address] [place], [place] PCP - General Family Medicine 10/17/24 documented as of this encounter
--- OUTSIDE RECORDS SUMMARY | 2024-12-14 11:11 | XMS_ITS | Clinical Summary ---
Author Organization [facility] Address [address] [place] [address] Phone Care Team Providers Care Flaring Machine Operator Name Role Phone Fausto Pat NP [...] Team Description 10/18/2024 Plan of Care Documentation [facility] [address] [place] [address] 10/16/2024 4:33 PM EST - 10/19/2024 11:05 AM EST Hospital Encounter [facility] [address] [place] [address] Cynthia Bentley, Discharge Disposition: Home or Self Care 10/10/2024 Lab Requisition [facility] [address] [place] [address] Sara Blanc MD Encounter for other general examination 10/05/2024 Lab Requisition [facility] [address] [place] [address] Sara Blanc MD Encounter for other general [...] of2 resultswithin the time period is included. [facility] Glucose POCT 106(H) 70 - 100 mg/dL 10/17/2024 11:23 AM EST [facility] Blood Capillary blood specimen / Unknown 10/17/2024 11:23 AM EST 10/17/2024 11:26 AM EST us Cynthia Bentley DO LAB POINT OF CARE TEST DOCKED DEVICE UNSOLICITED RESULTS Final Result [facility] [address] [place] [address], [place] [phone] * (ABNORMAL) CBC auto differential (10/17/2024 5:46 AM EST) Only the most recent of2 resultswithin the time period is included. [facility] WBC 9.8 4.8 - 10.8 K/mcL LAB HEMETOLOGY METHOD 10/17/2024 6:14 AM [facility] RBC 3.90(L) 4.50 - 5.50 M/mcL LAB HEMETOLOGY METHOD 10/17/2024 6:14 AM [facility] Hemoglobin 13.0(L) 13.5 - 17.5 g/dL LAB HEMETOLOGY METHOD 10/17/2024 6:14 AM [facility] Hematocrit 37.4(L) 42.0 - 54.0 % LAB HEMETOLOGY METHOD 10/17/2024 6:14 AM [facility] MCV 96.9 79.0 - 98.0 FL LAB HEMETOLOGY METHOD 10/17/2024 6:14 AM [facility] MCH 33.7(H) 27.0 - 32.0 pcg LAB HEMETOLOGY METHOD 10/17/2024 6:14 AM [facility] MCHC 34.8 32.0 - 37.0 g/dL LAB HEMETOLOGY METHOD 10/17/2024 6:14 AM [facility] RDW 12.9 11.0 - 15.0 % LAB HEMETOLOGY METHOD 10/17/2024 6:14 AM [facility] Platelets 228 130 - 400 K/mcL LAB HEMETOLOGY METHOD 10/17/2024 6:14 AM [facility] MPV 10.8 7.0 - 11.0 FL LAB HEMETOLOGY METHOD 10/17/2024 6:14 AM [facility] NRBC 0.0 <1.0 % LAB HEMETOLOGY METHOD 10/17/2024 6:14 AM [facility] NRBC Absolute 0.00 <0.10 K/mcL LAB HEMETOLOGY METHOD 10/17/2024 6:14 AM [facility] Neutrophils Relative 64.4 % LAB HEMETOLOGY METHOD 10/17/2024 6:14 AM [facility] Lymphocytes Relative 18.1 % LAB HEMETOLOGY METHOD 10/17/2024 6:14 AM [facility] Monocytes Relative 8.9 % LAB HEMETOLOGY METHOD 10/17/2024 6:14 AM [facility] Eosinophils Relative 7.0 % LAB HEMETOLOGY METHOD 10/17/2024 6:14 AM [facility] Basophils Relative 1.2 % LAB HEMETOLOGY METHOD 10/17/2024 6:14 AM [facility] Immature Granulocytes Relative 0.4 % LAB HEMETOLOGY METHOD 10/17/2024 6:14 AM EST [facility] Neutrophils Absolute 6.31 1.50 - 7.00 K/mcL LAB HEMETOLOGY METHOD 10/17/2024 6:14 AM EST [facility] Lymphocytes Absolute 1.78 1.00 - 5.00 K/mcL LAB HEMETOLOGY METHOD 10/17/2024 6:14 AM EST [facility] Monocytes Absolute 0.87 0.20 - 1.00 K/mcL LAB HEMETOLOGY METHOD 10/17/2024 6:14 AM EST [facility] Eosinophils Absolute 0.69(H) 0.00 - 0.50 K/mcL LAB HEMETOLOGY METHOD 10/17/2024 6:14 AM EST [facility] Basophils Absolute 0.12 0.00 - 0.20 K/mcL LAB HEMETOLOGY METHOD 10/17/2024 6:14 AM [facility] Immature Granulocytes Absolute 0.04(H) 0.00 - 0.03 K/[facility] LAB HEMETOLOGY METHOD 10/17/2024 6:14 AM EST [facility] Blood Venous blood specimen / Unknown Venipuncture / Unknown 10/17/2024 5:46 AM EST 10/17/2024 6:04 AM EST us Moshe HICKEY LAB BLOOD ORDERABLES Final Re sult [facility] [address] [place] [address], * (ABNORMAL) Comprehensive metabolic panel (10/17/2024 5:46 AM EST) Only the most recent of3 resultswithin the time period is included. Sodium 138 133 - 145 mmol/L LAB CHEMISTRY METHOD 10/17/2024 6:32 AM EST [facility] Potassium 4.2 3.5 - 5.5 mmol/L LAB CHEMISTRY METHOD 10/17/2024 6:32 AM [facility] Chloride 105 96 - 110 mmol/L LAB CHEMISTRY METHOD 10/17/2024 6:32 AM [facility] CO2 27 21 - 32 mmol/L LAB CHEMISTRY METHOD 10/17/2024 6:32 AM [facility] Anion Gap 6 3 - 11 LAB CHEMISTRY METHOD 10/17/2024 6:32 AM [facility] Glucose 107(H) 70 - 100 mg/dL LAB CHEMISTRY METHOD 10/17/2024 6:32 AM [facility] BUN 19 5 - 25 mg/dL LAB CHEMISTRY METHOD 10/17/2024 6:32 AM [facility] Creatinine 1.08 0.70 - 1.30 mg/dL LAB CHEMISTRY METHOD 10/17/2024 6:32 AM [facility] eGFR 73 >=60 mL/min/1. 73m2 LAB CHEMISTRY METHOD 10/17/2024 6:32 AM [facility] Comment:Calculation based on the??Chronic Kidney Disease Epidemiology Collaboration (CKD-EPI) equation refit??without adjustment for race. BUN/Creatinine Ratio 17.6 LAB CHEMISTRY METHOD 10/17/2024 6:32 AM [facility] Calcium 9.1 8.5 - 10.5 mg/dL LAB CHEMISTRY METHOD 10/17/2024 6:32 AM [facility] AST (SGOT) 17 10 - 42 unit/L LAB CHEMISTRY METHOD 10/17/2024 6:32 AM [facility] ALT (SGPT) 30 10 - 60 unit/L LAB CHEMISTRY METHOD 10/17/2024 6:32 AM [facility] Alkaline Phosphatase 76 42 - 121 unit/L LAB CHEMISTRY METHOD 10/17/2024 6:32 AM [facility] Total Protein 6.3 6.0 - 8.0 g/dL LAB CHEMISTRY METHOD 10/17/2024 6:32 AM [facility] Albumin 2.9(L) 3.2 - 5.0 g/dL LAB CHEMISTRY METHOD 10/17/2024 6:32 AM EST [facility] Total Bilirubin 0.9 0.0 - 1.4 mg/dL LAB CHEMISTRY METHOD 10/17/2024 6:32 AM [facility] Blood Venous blood specimen / Unknown Venipuncture / Unknown 10/17/2024 5:46 AM EST 10/17/2024 6:04 AM EST us Moshe HICKEY LAB BLOOD ORDERABLES Final Re sult [facility] [address] [place] [address], * (ABNORMAL) Complete blood count (10/10/2024 7:22 [...] LAB HEMETOLOGY METHOD 10/10/2024 11:49 AM EST [facility] RDW 13.0 11.0 - 15.0 % LAB HEMETOLOGY METHOD 10/10/2024 11:49 AM [facility] Platelets 318 130 - 400 K/mcL LAB HEMETOLOGY METHOD 10/10/2024 11:49 AM [facility] MPV 11.8(H) 7.0 - 11.0 FL LAB HEMETOLOGY METHOD 10/10/2024 11:49 AM EST [facility] NRBC 0.0 <1.0 % LAB HEMETOLOGY METHOD 10/10/2024 11:49 AM [facility] NRBC Absolute 0.00 <0.10 K/mcL LAB HEMETOLOGY METHOD 10/10/2024 11:49 AM EST [facility] Blood Venous blood specimen / Unknown Venipuncture / Unknown 10/10/2024 7:22 AM EST 10/10/2024 11:30 AM EST Sara Blanc MD LAB BLOOD ORDERABLES Final Res ult [facility] [address] [place] [address], * Magnesium (10/05/2024 5:24 AM EST) Magnesium 2.1 1.9 - 2.6 mg/dL LAB CHEMISTRY METHOD 10/05/2024 12:10 PM EST [facility] Blood Venous blood specimen / Unknown Venipuncture / Unknown 10/05/2024 5:24 AM EST 10/05/2024 10:54 AM EST Sara Blanc MD LAB BLOOD ORDERABLES Final Res ult [facility] [address] [place] [address], [place] [phone] from Last 3 Months Insurance MEDICARE [facility] Advance Directives Documents on File Type Date Recorded Patient Curriculum And Assessment Coordinator Expl anation Advance Directives and Living Will [...] currently active code status orders. Care Teams Flaring Machine Operator Relationship Specialty Start Date End Date Fausto Pat NP [address] [facility] [place] PCP - General Family Medicine 10/17/24
--- OUTSIDE RECORDS SUMMARY | 2024-12-14 11:11 | XMS_ITS | Encounter Summary ---
Author Organization [facility] Address [address] [place] [address] Care Team Providers Care Mailroom Messenger Name Role Phone Fausto Pat NP Primary Care Provider [phone] Encounter Details Date Type Department Care Team (Late st Contact Info) Description 10/10/2024 Lab Requisition [facility] Lab [address] [place] [address] Sara Blanc MD [address] [place] [address] Encounter for other general examination Social History [...] Complete blood count (10/10/2024 7:22 AM EST) [facility] WBC 9.1 4.8 - 10.8 K/mcL LAB HEMETOLOGY METHOD 10/10/2024 11:49 AM [facility] RBC 4.40(L) 4.50 - 5.50 M/mcL LAB HEMETOLOGY METHOD 10/10/2024 11:49 AM [facility] Hemoglobin 14.9 13.5 - 17.5 [...] 11:49 AM [facility] RDW 13.0 11.0 - 15.0 [...] 11:49 AM [facility] Blood Venous blood specimen / Unknown Venipuncture / Unknown 10/10/2024 7:22 AM EST 10/10/2024 11:30 AM EST us Sara Blanc MD LAB BLOOD ORDERABLES Final Res ult [facility] [address] [place] [address], [place] [phone] * Comprehensive metabolic panel (10/10/2024 7:22 AM EST) Sodium 139 133 - 145 mmol/L LAB CHEMISTRY METHOD 10/10/2024 1:03 PM [facility] Potassium 4.2 3.5 - 5.5 mmol/L LAB CHEMISTRY METHOD 10/10/2024 1:03 PM [facility] Chloride 103 96 - 110 mmol/L LAB CHEMISTRY METHOD 10/10/2024 1:03 PM [facility] CO2 31 21 - 32 mmol/L LAB CHEMISTRY METHOD 10/10/2024 1:03 PM [facility] Anion Gap 5 3 - 11 LAB CHEMISTRY METHOD 10/10/2024 1:03 PM [facility] Glucose 81 70 - 100 mg/dL LAB CHEMISTRY METHOD 10/10/2024 1:03 PM [facility] BUN 18 5 - 25 mg/dL LAB CHEMISTRY METHOD 10/10/2024 1:03 PM [facility] Creatinine 0.93 0.70 - 1.30 mg/dL LAB CHEMISTRY METHOD 10/10/2024 1:03 PM [facility] eGFR 88 >=60 mL/min/1. 73m2 LAB CHEMISTRY METHOD 10/10/2024 1:03 PM [facility] Comment:Calculation based on the??Chronic Kidney Disease Epidemiology Collaboration (CKD-EPI) equation refit??without adjustment for race. BUN/Creatinine Ratio 19.4 LAB CHEMISTRY METHOD 10/10/2024 1:03 PM [facility] Calcium 9.6 8.5 - 10.5 mg/dL LAB CHEMISTRY METHOD 10/10/2024 1:03 PM [facility] AST (SGOT) 33 10 - 42 unit/L LAB CHEMISTRY METHOD 10/10/2024 1:03 PM [facility] ALT (SGPT) 39 10 - 60 unit/L LAB CHEMISTRY METHOD 10/10/2024 1:03 PM [facility] Alkaline Phosphatase 90 42 - 121 unit/L LAB CHEMISTRY METHOD 10/10/2024 1:03 PM [facility] Total Protein 7.3 6.0 - 8.0 g/dL LAB CHEMISTRY METHOD 10/10/2024 1:03 PM [facility] Albumin 3.6 3.2 - 5.0 g/dL LAB CHEMISTRY METHOD 10/10/2024 1:03 PM [facility] Total Bilirubin 1.4 0.0 - 1.4 mg/dL LAB CHEMISTRY METHOD 10/10/2024 1:03 PM [facility] Blood Venous blood specimen / Unknown Venipuncture / Unknown 10/10/2024 7:22 AM EST 10/10/2024 11:30 AM EST us Sara Blanc MD LAB BLOOD ORDERABLES Final Res ult [facility] [address] [place] [address], documented in this encounter Visit Diagnoses Diagnosis Encounter for other general examination documented in this encounter Care Teams Mailroom Messenger Relationship Specialty Start Date End Date Fausto Pat NP [address] [place], [place] PCP - General Family Medicine 10/17/24 documented as of this encounter
== END 2024-12-14 09:59 | disposition home or self-care (01) ==
LOC: HO.HVNA 09:58
PROVIDERS: Visit Provider Internal Medicine
DX: S76.111A Strain of right quadriceps muscle, fascia and tendon, initial encounter (principal); X58.XXXA Exposure to other specified factors, initial encounter; Y93.9 Activity, unspecified; Y92.9 Unspecified place or not applicable; Y99.9 Unspecified external cause status; T81.49XA Infection following a procedure, other surgical site, initial encounter
CPT/HCPCS: 36415; 80053; 80202; 85025; 99212

== ENCOUNTER 2024-12-14 10:21 | Outpatient (AMB) | payer MEDICARE, SELFPAY ==
--- NOTE | 2024-12-14 10:25 | MHC.OFFVIS ---
Intake Visit Reasons: PO RT knee explor/poss quad ten repair 10/13/24 NE Intake Note: Jorge is a 69 year old male who presents today for a post operative appointment s/p RT knee explor/poss quad ten repair 10/13/24. Right Quad Tendon Repair 09/29/24. At his last visit he was instructed to weight bear as tolerated with his brace locked in extension - avoid flexion. Patient reports that he is doing very well, He has been wearing his brace but taking it off while at home. He is using a cane for ambulation, but explains that it is mostly used as a precaution. Allergies No Known Allergies [No Known Allergies*] Allergy (Verified 12/13/24 13:05) HPI HPI PO RT knee explor/poss quad ten repair 10/13/24 NE: Details: Jorge is a 69 year old male who presents today for a post operative appointment s/p RT knee explor/poss quad ten repair 10/13/24. Right Quad Tendon Repair 09/29/24. At his last visit he was instructed to weight bear as tolerated with his brace locked in extension - avoid flexion. Patient reports that he is doing very well, He has been wearing his brace but taking it off while at home. He is using a cane for ambulation, but explains that it is mostly used as a precaution. He is almost finished his IV antibiotic course and will be transitioned to p.o. medications. He has no fevers or chills. [facility] Medical History First degree atrioventricular block by electrocardiogram Anemia Subclinical hypothyroidism Cellulitis Dyslipidemia Obesity HTN (hypertension) Rupture of right quadriceps tendon Gout Paronychia of great toe Elevated TSH Screening PSA (prostate specific antigen) Varicose veins of both lower extremities Surgical History History of amputation of left great toe (07/01/22) Hx of hand surgery Status post debridement (06/16/22) Hx of vascular surgery Hx of colonoscopy Family History Father HTN (hypertension) Mother Parkinsons disease Social History Household Members: None Housing: House Are you a primary health care sanitary technician to a significant other at home: No Do you presently have visiting nurse or other home services: No Alcohol intake: current Alcohol intake frequency: holidays/special occasions only Comment: COUNTS CORRECT Patient Tobacco Use Status: Never used Tobacco e-Cigarette/Vaping Use: Never Used Second Hand Smoke Exposure: No Advance Directives Date on File: 10/13/23 service: No Current occupational status: retired Cognitive needs: No Hearing needs: No Vision needs: No Physical Exam Extrem Other: Incision is clean, dry and intact. There is no evidence of underlying infection and he can straight leg raise with a 20 degree lag. Flexion to 60 degrees. Assessment & Plan Assessment & Plan (1) Surgical site infection: Comment: Finish IV Vancomycin on 12/18 (letter written). Po Doxycycline 100 mg bid,one month and one refill. See prn need,no further visits at this time,follow with Orthopedics. Code(s): T81.49XA - Infection following a procedure, other surgical site, initial encounter Category: Medical Plan: This is a 69-year-old gentleman who had a traumatic rupture of his quad and subsequent repair which was complicated by full minute infection. This was treated with debridement and IV antibiotics and he comes in today doing surprisingly well. His extensor mechanism may be partially intact although it is difficult to be certain at this point. I recommend continued brace wear and ambulation with the brace locked in extension. He can work on range of motion starting at 0-45 degrees and progressing 10 degrees a week for the next 6 weeks. I wrote a prescription for physical therapy. I discussed this with him. I will see him back in 6 weeks. (2) Rupture of right quadriceps tendon: Comment: repair 09/29/24 with re-rupture on 09/30/24 Repair again performed on 10/13/24 *Right quad tendon irrigation and debridement 11/03/2024 Code(s): S76.111A - Strain of right quadriceps muscle, fascia and tendon, initial encounter Category: Medical Qualifiers: Encounter type: initial encounter Qualified Code(s): S76.111A - Strain of right quadriceps muscle, fascia and tendon, initial encounter Plan: Coding Level of Care Code Global (26609) Diagnoses Surgical site infection T81.49XA Rupture of right quadriceps tendon, initial encounter S76.111A Encounter type: initial encounter
--- OUTSIDE RECORDS SUMMARY | 2024-12-14 11:50 | XMS_ITS | Clinical Summary ---
Author Organization [facility] Address [address] [place] [address] Phone Care Team Providers Care Pen And Pencil Repairer Name Role Phone Fausto Pat NP Primary [...] Team Description 10/18/2024 Plan of Care Documentation [facility] [address] [place] [address] 10/16/2024 4:33 PM EST - 10/19/2024 11:05 AM EST Hospital Encounter [facility] [address] [place] [address] Cynthia Bentley, Discharge Disposition: Home or Self Care 10/10/2024 Lab Requisition [facility] [address] [place] [address] Sara Blanc MD Encounter for other general examination 10/05/2024 Lab Requisition [facility] [address] [place] [address] Sara Blanc MD Encounter for other general [...] of2 resultswithin the time period is included. [facility] Glucose POCT 106(H) 70 - 100 mg/dL 10/17/2024 11:23 AM EST [facility] Blood Capillary blood specimen / Unknown 10/17/2024 11:23 AM EST 10/17/2024 11:26 AM EST us Cynthia Bentley DO LAB POINT OF CARE TEST DOCKED DEVICE UNSOLICITED RESULTS Final Result [facility] [address] [place] [address], [place] [phone] * (ABNORMAL) CBC auto differential (10/17/2024 5:46 AM EST) Only the most recent of2 resultswithin the time period is included. [facility] WBC 9.8 4.8 - 10.8 K/mcL LAB HEMETOLOGY METHOD 10/17/2024 6:14 AM [facility] RBC 3.90(L) 4.50 - 5.50 M/mcL LAB HEMETOLOGY METHOD 10/17/2024 6:14 AM [facility] Hemoglobin 13.0(L) 13.5 - 17.5 g/dL LAB HEMETOLOGY METHOD 10/17/2024 6:14 AM [facility] Hematocrit 37.4(L) 42.0 - 54.0 % LAB HEMETOLOGY METHOD 10/17/2024 6:14 AM [facility] MCV 96.9 79.0 - 98.0 FL LAB HEMETOLOGY METHOD 10/17/2024 6:14 AM [facility] MCH 33.7(H) 27.0 - 32.0 pcg LAB HEMETOLOGY METHOD 10/17/2024 6:14 AM [facility] MCHC 34.8 32.0 - 37.0 g/dL LAB HEMETOLOGY METHOD 10/17/2024 6:14 AM [facility] RDW 12.9 11.0 - 15.0 % LAB HEMETOLOGY METHOD 10/17/2024 6:14 AM [facility] Platelets 228 130 - 400 K/mcL LAB HEMETOLOGY METHOD 10/17/2024 6:14 AM [facility] MPV 10.8 7.0 - 11.0 FL LAB HEMETOLOGY METHOD 10/17/2024 6:14 AM [facility] NRBC 0.0 <1.0 % LAB HEMETOLOGY METHOD 10/17/2024 6:14 AM [facility] NRBC Absolute 0.00 <0.10 K/mcL LAB HEMETOLOGY METHOD 10/17/2024 6:14 AM [facility] Neutrophils Relative 64.4 % LAB HEMETOLOGY METHOD 10/17/2024 6:14 AM [facility] Lymphocytes Relative 18.1 % LAB HEMETOLOGY METHOD 10/17/2024 6:14 AM [facility] Monocytes Relative 8.9 % LAB HEMETOLOGY METHOD 10/17/2024 6:14 AM [facility] Eosinophils Relative 7.0 % LAB HEMETOLOGY METHOD 10/17/2024 6:14 AM [facility] Basophils Relative 1.2 % LAB HEMETOLOGY METHOD 10/17/2024 6:14 AM [facility] Immature Granulocytes Relative 0.4 [...] K/mcL LAB HEMETOLOGY METHOD 10/17/2024 6:14 AM [facility] Immature Granulocytes Absolute 0.04(H) 0.00 - 0.03 K/[facility] LAB HEMETOLOGY METHOD 10/17/2024 6:14 AM EST [facility] Blood Venous blood specimen / Unknown Venipuncture / Unknown 10/17/2024 5:46 AM EST 10/17/2024 6:04 AM EST us Moshe HICKEY LAB BLOOD ORDERABLES Final Re sult [facility] [address] [place] [address], * (ABNORMAL) Comprehensive metabolic panel (10/17/2024 5:46 AM EST) Only the most recent of3 resultswithin the time period is included. Sodium 138 133 - 145 mmol/L LAB CHEMISTRY METHOD 10/17/2024 6:32 AM EST [facility] Potassium 4.2 3.5 - 5.5 mmol/L LAB CHEMISTRY METHOD 10/17/2024 6:32 AM [facility] Chloride 105 96 - 110 mmol/L LAB CHEMISTRY METHOD 10/17/2024 6:32 AM [facility] CO2 27 21 - 32 mmol/L LAB CHEMISTRY METHOD 10/17/2024 6:32 AM [facility] Anion Gap 6 3 - 11 LAB CHEMISTRY METHOD 10/17/2024 6:32 AM [facility] Glucose 107(H) 70 - 100 mg/dL LAB CHEMISTRY METHOD 10/17/2024 6:32 AM [facility] BUN 19 5 - 25 mg/dL LAB CHEMISTRY METHOD 10/17/2024 6:32 AM [facility] Creatinine 1.08 0.70 - 1.30 mg/dL LAB CHEMISTRY METHOD 10/17/2024 6:32 AM [facility] eGFR 73 >=60 mL/min/1. 73m2 LAB CHEMISTRY METHOD 10/17/2024 6:32 AM [facility] Comment:Calculation based on the??Chronic Kidney Disease Epidemiology Collaboration (CKD-EPI) equation refit??without adjustment for race. BUN/Creatinine Ratio 17.6 LAB CHEMISTRY METHOD 10/17/2024 6:32 AM [facility] Calcium 9.1 8.5 - 10.5 mg/dL LAB CHEMISTRY METHOD 10/17/2024 6:32 AM [facility] AST (SGOT) 17 10 - 42 unit/L LAB CHEMISTRY METHOD 10/17/2024 6:32 AM [facility] ALT (SGPT) 30 10 - 60 unit/L LAB CHEMISTRY METHOD 10/17/2024 6:32 AM [facility] Alkaline Phosphatase 76 42 - 121 unit/L LAB CHEMISTRY METHOD 10/17/2024 6:32 AM [facility] Total Protein 6.3 6.0 - 8.0 g/dL LAB CHEMISTRY METHOD 10/17/2024 6:32 AM [facility] Albumin 2.9(L) 3.2 - 5.0 g/dL LAB CHEMISTRY METHOD 10/17/2024 6:32 AM EST [facility] Total Bilirubin 0.9 0.0 - 1.4 mg/dL LAB CHEMISTRY METHOD 10/17/2024 6:32 AM [facility] Blood Venous blood specimen / Unknown Venipuncture / Unknown 10/17/2024 5:46 AM EST 10/17/2024 6:04 AM EST us Moshe HICKEY LAB BLOOD ORDERABLES Final Re sult [facility] [address] [place] [address], * (ABNORMAL) Complete blood count (10/10/2024 7:22 AM EST) WBC 9.1 4.8 - 10.8 K/mcL LAB HEMETOLOGY METHOD 10/10/2024 11:49 AM [facility] RBC 4.40(L) 4.50 - 5.50 M/mcL LAB HEMETOLOGY METHOD 10/10/2024 11:49 AM [facility] Hemoglobin 14.9 13.5 - 17.5 g/dL LAB HEMETOLOGY METHOD 10/10/2024 11:49 AM [facility] Hematocrit 44.3 42.0 - 54.0 % LAB HEMETOLOGY METHOD 10/10/2024 11:49 AM [facility] MCV 100.2(H) 79.0 - 98.0 FL LAB HEMETOLOGY METHOD 10/10/2024 11:49 AM [facility] MCH 33.7(H) 27.0 - 32.0 pcg LAB HEMETOLOGY METHOD 10/10/2024 11:49 AM [facility] MCHC 33.6 32.0 - 37.0 g/dL LAB HEMETOLOGY METHOD 10/10/2024 11:49 AM EST [facility] RDW 13.0 11.0 - 15.0 % LAB HEMETOLOGY METHOD 10/10/2024 11:49 AM [facility] Platelets 318 130 - 400 K/mcL LAB HEMETOLOGY METHOD 10/10/2024 11:49 AM [facility] MPV 11.8(H) 7.0 - 11.0 FL LAB HEMETOLOGY METHOD 10/10/2024 11:49 AM EST [facility] NRBC 0.0 <1.0 % LAB HEMETOLOGY METHOD 10/10/2024 11:49 AM [facility] NRBC Absolute 0.00 <0.10 K/mcL LAB HEMETOLOGY METHOD 10/10/2024 11:49 AM EST [facility] Blood Venous blood specimen / Unknown Venipuncture / Unknown 10/10/2024 7:22 AM EST 10/10/2024 11:30 AM EST Sara Blanc MD LAB BLOOD ORDERABLES Final Res ult [facility] [address] [place] [address], * Magnesium (10/05/2024 5:24 AM EST) Magnesium 2.1 1.9 - 2.6 mg/dL LAB CHEMISTRY METHOD 10/05/2024 12:10 PM EST [facility] Blood Venous blood specimen / Unknown Venipuncture / Unknown 10/05/2024 5:24 AM EST 10/05/2024 10:54 AM EST Sara Blanc MD LAB BLOOD ORDERABLES Final Res ult [facility] [address] [place] [address], [place] [phone] from Last 3 Months Insurance MEDICARE [facility] Advance Directives Documents on File Type Date Recorded Patient Tester Operator Expl anation Advance Directives and Living Will [...] currently active code status orders. Care Teams Pen And Pencil Repairer Relationship Specialty Start Date End Date Fausto Pat NP [address] [facility] [place] PCP - General Family Medicine 10/17/24
--- OUTSIDE RECORDS SUMMARY | 2024-12-14 11:50 | XMS_ITS | Encounter Summary ---
Author Organization [facility] Address [address] [place] [address] Care Team Providers Care Sales Representative Public Utilities Name Role Phone Fausto Pat NP Primary Care Provider [phone] Encounter Details Date Type Department Care Team (Late st Contact Info) Description 10/10/2024 Lab Requisition [facility] Lab [address] [place] [address] Sara Blanc MD [address] [place] [address] Encounter for other general examination Social History [...] Complete blood count (10/10/2024 7:22 AM EST) [facility] WBC 9.1 4.8 - 10.8 K/mcL LAB HEMETOLOGY METHOD 10/10/2024 11:49 AM [facility] RBC 4.40(L) 4.50 - 5.50 M/mcL LAB HEMETOLOGY METHOD 10/10/2024 11:49 AM [facility] Hemoglobin 14.9 13.5 - 17.5 g/dL LAB HEMETOLOGY METHOD 10/10/2024 11:49 AM [facility] Hematocrit 44.3 42.0 - 54.0 % LAB HEMETOLOGY METHOD 10/10/2024 11:49 AM [facility] MCV 100.2(H) 79.0 - 98.0 FL LAB HEMETOLOGY METHOD 10/10/2024 11:49 AM [facility] MCH 33.7(H) 27.0 - 32.0 pcg LAB HEMETOLOGY METHOD 10/10/2024 11:49 AM [facility] MCHC 33.6 32.0 - 37.0 g/dL LAB HEMETOLOGY METHOD 10/10/2024 11:49 AM [facility] RDW 13.0 11.0 - 15.0 % LAB HEMETOLOGY METHOD 10/10/2024 11:49 AM [facility] Platelets 318 130 - 400 K/mcL LAB HEMETOLOGY METHOD 10/10/2024 11:49 AM [facility] MPV 11.8(H) 7.0 - 11.0 FL LAB HEMETOLOGY METHOD 10/10/2024 11:49 AM [facility] NRBC 0.0 <1.0 % LAB HEMETOLOGY METHOD 10/10/2024 11:49 AM [facility] NRBC Absolute 0.00 <0.10 K/mcL LAB HEMETOLOGY METHOD 10/10/2024 11:49 AM [facility] Blood Venous blood specimen / Unknown Venipuncture / Unknown 10/10/2024 7:22 AM EST 10/10/2024 11:30 AM EST us Sara Blanc MD LAB BLOOD ORDERABLES Final Res ult [facility] [address] [place] [address], [place] [phone] * Comprehensive metabolic panel (10/10/2024 7:22 AM EST) Sodium 139 133 - 145 mmol/L LAB CHEMISTRY METHOD 10/10/2024 1:03 PM [facility] Potassium 4.2 3.5 - 5.5 mmol/L LAB CHEMISTRY METHOD 10/10/2024 1:03 PM [facility] Chloride 103 96 - 110 mmol/L LAB CHEMISTRY METHOD 10/10/2024 1:03 PM [facility] CO2 31 21 - 32 mmol/L LAB CHEMISTRY METHOD 10/10/2024 1:03 PM [facility] Anion Gap 5 3 - 11 LAB CHEMISTRY METHOD 10/10/2024 1:03 PM [facility] Glucose 81 70 - 100 mg/dL LAB CHEMISTRY METHOD 10/10/2024 1:03 PM [facility] BUN 18 5 - 25 mg/dL LAB CHEMISTRY METHOD 10/10/2024 1:03 PM [facility] Creatinine 0.93 0.70 - 1.30 mg/dL LAB CHEMISTRY METHOD 10/10/2024 1:03 PM [facility] eGFR 88 >=60 mL/min/1. 73m2 LAB CHEMISTRY METHOD 10/10/2024 1:03 PM [facility] Comment:Calculation based on the??Chronic Kidney Disease Epidemiology Collaboration (CKD-EPI) equation refit??without adjustment for race. BUN/Creatinine Ratio 19.4 LAB CHEMISTRY METHOD 10/10/2024 1:03 PM [facility] Calcium 9.6 8.5 - 10.5 mg/dL LAB CHEMISTRY METHOD 10/10/2024 1:03 PM [facility] AST (SGOT) 33 10 - 42 unit/L LAB CHEMISTRY METHOD 10/10/2024 1:03 PM [facility] ALT (SGPT) 39 10 - 60 unit/L LAB CHEMISTRY METHOD 10/10/2024 1:03 PM [facility] Alkaline Phosphatase 90 42 - 121 unit/L LAB CHEMISTRY METHOD 10/10/2024 1:03 PM [facility] Total Protein 7.3 6.0 - 8.0 g/dL LAB CHEMISTRY METHOD 10/10/2024 1:03 PM [facility] Albumin 3.6 3.2 - 5.0 g/dL LAB CHEMISTRY METHOD 10/10/2024 1:03 PM [facility] Total Bilirubin 1.4 0.0 - 1.4 mg/dL LAB CHEMISTRY METHOD 10/10/2024 1:03 PM [facility] Blood Venous blood specimen / Unknown Venipuncture / Unknown 10/10/2024 7:22 AM EST 10/10/2024 11:30 AM EST us Sara Blanc MD LAB BLOOD ORDERABLES Final Res ult [facility] [address] [place] [address], documented in this encounter Visit Diagnoses Diagnosis Encounter for other general examination documented in this encounter Care Teams Sales Representative Public Utilities Relationship Specialty Start Date End Date Fausto Pat NP [address] [place], [place] PCP - General Family Medicine 10/17/24 documented as of this encounter
--- OUTSIDE RECORDS SUMMARY | 2024-12-14 11:50 | XMS_ITS | Encounter Summary ---
Author Organization [facility] Address [address] [place] [address] Care Team Providers Care Flatwork Tier Name Role Phone Fausto Pat NP Primary Care Provider [phone] Encounter Details Date Type Department Care Team (Late st Contact Info) Description 10/05/2024 Lab Requisition [facility] - Main Lab 299 [facility] [place] [address] Sara Blanc MD [address] [place] [address] Encounter for other general examination Social History [...] CBC auto differential (10/05/2024 5:24 AM EST) [facility] Signature WBC 10.0 4.8 - 10.8 K/mcL LAB HEMETOLOGY METHOD 10/05/2024 11:37 AM [facility] LAB RBC 4.30(L) 4.50 - 5.50 M/mcL LAB HEMETOLOGY METHOD 10/05/2024 11:37 AM [facility] LAB Hemoglobin 14.3 13.5 - 17.5 g/dL LAB HEMETOLOGY METHOD 10/05/2024 11:37 AM [facility] LAB Hematocrit 42.4 42.0 - 54.0 % LAB HEMETOLOGY METHOD 10/05/2024 11:37 AM [facility] LAB MCV 99.3(H) 79.0 - 98.0 FL LAB HEMETOLOGY METHOD 10/05/2024 11:37 AM [facility] LAB MCH 33.5(H) 27.0 - 32.0 pcg LAB HEMETOLOGY METHOD 10/05/2024 11:37 AM [facility] LAB MCHC 33.7 32.0 - 37.0 g/dL LAB HEMETOLOGY METHOD 10/05/2024 11:37 AM [facility] LAB RDW 13.1 11.0 - 15.0 % LAB HEMETOLOGY METHOD 10/05/2024 11:37 AM [facility] LAB Platelets 322 130 - 400 K/mcL LAB HEMETOLOGY METHOD 10/05/2024 11:37 AM [facility] LAB MPV 10.9 7.0 - 11.0 FL LAB HEMETOLOGY METHOD 10/05/2024 11:37 AM [facility] LAB NRBC 0.0 <1.0 % LAB HEMETOLOGY METHOD 10/05/2024 11:37 AM [facility] LAB NRBC Absolute 0.00 <0.10 K/mcL LAB HEMETOLOGY METHOD 10/05/2024 11:37 AM [facility] LAB Neutrophils Relative 72.7 % LAB HEMETOLOGY METHOD 10/05/2024 11:37 AM [facility] LAB Lymphocytes Relative 11.5 % LAB HEMETOLOGY METHOD 10/05/2024 11:37 AM [facility] LAB Monocytes Relative 9.5 % LAB HEMETOLOGY METHOD 10/05/2024 11:37 AM [facility] LAB Eosinophils Relative 4.7 % LAB HEMETOLOGY METHOD 10/05/2024 11:37 AM [facility] LAB Basophils Relative 1.1 % LAB HEMETOLOGY METHOD 10/05/2024 11:37 AM [facility] LAB Immature Granulocytes Relative 0.5 % LAB HEMETOLOGY METHOD 10/05/2024 11:37 AM [facility] LAB Neutrophils Absolute 7.28(H) 1.50 - 7.00 K/mcL LAB HEMETOLOGY METHOD 10/05/2024 11:37 AM [facility] LAB Lymphocytes Absolute 1.15 1.00 - 5.00 K/mcL LAB HEMETOLOGY METHOD 10/05/2024 11:37 AM [facility] LAB Monocytes Absolute 0.95 0.20 - 1.00 K/mcL LAB HEMETOLOGY METHOD 10/05/2024 11:37 AM [facility] LAB Eosinophils Absolute 0.47 0.00 - 0.50 K/mcL LAB HEMETOLOGY METHOD 10/05/2024 11:37 AM [facility] Basophils Absolute 0.11 0.00 - 0.20 K/mcL LAB HEMETOLOGY METHOD 10/05/2024 11:37 AM [facility] LAB Immature Granulocytes Absolute 0.05(H) 0.00 - 0.03 K/mcL LAB HEMETOLOGY METHOD 10/05/2024 11:37 AM EST [facility] Blood Venous blood specimen / Unknown Venipuncture / Unknown 10/05/2024 5:24 AM EST 10/05/2024 10:54 AM EST Sara Blanc MD LAB BLOOD ORDERABLES Final Res ult [facility] [address] [place] [address], [place] [phone] * Magnesium (10/05/2024 5:24 AM EST) Magnesium 2.1 1.9 - 2.6 mg/dL LAB CHEMISTRY METHOD 10/05/2024 12:10 PM [facility] Blood Venous blood specimen / Unknown Venipuncture / Unknown 10/05/2024 5:24 AM EST 10/05/2024 10:54 AM EST Sara Blanc MD LAB BLOOD ORDERABLES Final Res ult [facility] [address] [place] [address], [place] [phone] * (ABNORMAL) Comprehensive metabolic panel (10/05/2024 5:24 AM EST) Sodium 139 133 - 145 mmol/L LAB CHEMISTRY METHOD 10/05/2024 12:16 PM [facility] Potassium 4.1 3.5 - 5.5 mmol/L LAB CHEMISTRY METHOD 10/05/2024 12:16 PM [facility] Chloride 103 96 - 110 mmol/L LAB CHEMISTRY METHOD 10/05/2024 12:16 PM [facility] CO2 26 21 - 32 mmol/L LAB CHEMISTRY METHOD 10/05/2024 12:16 PM [facility] Anion Gap 10 3 - 11 LAB CHEMISTRY METHOD 10/05/2024 12:16 PM [facility] Glucose 82 70 - 100 mg/dL LAB CHEMISTRY METHOD 10/05/2024 12:16 PM [facility] BUN 17 5 - 25 mg/dL LAB CHEMISTRY METHOD 10/05/2024 12:16 PM [facility] Creatinine 0.97 0.70 - 1.30 mg/dL LAB CHEMISTRY METHOD 10/05/2024 12:16 PM [facility] eGFR 83 >=60 mL/min/1. 73m2 LAB CHEMISTRY METHOD 10/05/2024 12:16 PM [facility] Comment:Calculation based on the??Chronic Kidney Disease Epidemiology Collaboration (CKD-EPI) equation refit??without adjustment for race. BUN/Creatinine Ratio 17.5 LAB CHEMISTRY METHOD 10/05/2024 12:16 PM [facility] Calcium 9.1 8.5 - 10.5 mg/dL LAB CHEMISTRY METHOD 10/05/2024 12:16 PM [facility] AST (SGOT) 25 10 - 42 unit/L LAB CHEMISTRY METHOD 10/05/2024 12:16 PM [facility] ALT (SGPT) 35 10 - 60 unit/L LAB CHEMISTRY METHOD 10/05/2024 12:16 PM [facility] Alkaline Phosphatase 83 42 - 121 unit/L LAB CHEMISTRY METHOD 10/05/2024 12:16 PM [facility] Total Protein 6.8 6.0 - 8.0 g/dL LAB CHEMISTRY METHOD 10/05/2024 12:16 PM [facility] Albumin 3.3 3.2 - 5.0 g/dL LAB CHEMISTRY METHOD 10/05/2024 12:16 PM [facility] Total Bilirubin 1.5(H) 0.0 - 1.4 mg/dL LAB CHEMISTRY METHOD 10/05/2024 12:16 PM [facility] Blood Venous blood specimen / Unknown Venipuncture / Unknown 10/05/2024 5:24 AM EST 10/05/2024 10:54 AM EST us Sara Blanc MD LAB BLOOD ORDERABLES Final Res ult Performing Organization Address City/State/[facility] Co de Phone Number [facility] ([facility]) [facility] [address] [place] [address], documented in this encounter Visit Diagnoses Diagnosis Encounter for other general examination documented in this encounter Care Teams Flatwork Tier Relationship Specialty Start Date End Date Fausto Pat NP [address] [place], [place] PCP - General Family Medicine 10/17/24 documented as of this encounter
== END 2024-12-14 11:14 | disposition home or self-care (01) ==
LOC: HO.HOS 10:22
PROVIDERS: PCP Nurse Practitioner Family; Visit Provider Orthopaedic Surgery
DX: T81.49XA Infection following a procedure, other surgical site, initial encounter (principal); S76.111A Strain of right quadriceps muscle, fascia and tendon, initial encounter
CPT/HCPCS: 99024

== ENCOUNTER 2025-01-29 12:56 | Outpatient (AMB) | payer MEDICARE, SELFPAY ==
[2025-01-29 12:57] VITALS: BMI 34.0
--- NOTE | 2025-01-29 12:57 | MHC.OFFVIS ---
Vital Signs 01/29/25 12:57 Height 5 ft 10 in Weight 237 lb BMI 34.0 Intake Visit Reasons: PO-RT knee explor/poss quad ten repair 10/13/24 NE Intake Note: Jorge is a 69 year old male who presents today for a post operative appointment s/p RT knee explor/poss quad ten repair 10/13/24. Right Quad Tendon Repair 09/29/24. At his last visit he was instructed to continue wearing brace locked with ambulation and physical therapy order. Patient reports that Physical therapy is going well, his next visit is 01/30. Patient reports no pain at this time, he feels that his ROM is getting better. Patient reports that at night he removes the brace to walk around. Allergies No Known Allergies (No Known Allergies*) Allergy (Verified 01/29/25 13:02) HPI HPI PO-RT knee explor/poss quad ten repair 10/13/24 NE: Details: Jorge is a 69 year old male who presents today for a post operative appointment s/p RT knee explor/poss quad ten repair 10/13/24. Right Quad Tendon Repair 09/29/24. He had a severe suppurative infection of the quad that complicated treatment and required removal of suture and all foreign material. At his last visit he was instructed to continue wearing brace locked with ambulation and physical therapy order. Patient reports that Physical therapy is going well, his next visit is 01/30. Patient reports no pain at this time, he feels that his ROM is getting better. Patient reports that at night he removes the brace to walk around. [facility] Medical History First degree atrioventricular block by electrocardiogram Anemia Subclinical hypothyroidism Cellulitis Dyslipidemia Obesity HTN (hypertension) Rupture of right quadriceps tendon Gout Paronychia of great toe Elevated TSH Screening PSA (prostate specific antigen) Varicose veins of both lower extremities Surgical History History of amputation of left great toe (07/01/22) Hx of hand surgery Status post debridement (06/16/22) Hx of vascular surgery Hx of colonoscopy Family History Father HTN (hypertension) Mother Parkinsons disease Social History Household Members: None Housing: House Are you a primary prompt care rn to a significant other at home: No Do you presently have visiting nurse or other home services: No Alcohol intake: current Alcohol intake frequency: holidays/special occasions only Comment: COUNTS CORRECT Patient Tobacco Use Status: Never used Tobacco e-Cigarette/Vaping Use: Never Used Second Hand Smoke Exposure: No Advance Directives Date on File: 10/13/23 service: No Current occupational status: retired Cognitive needs: No Hearing needs: No Vision needs: No Physical Exam Vital Signs: BMI result Body Mass Index 34.0 Extrem Other: Incision is well healed and he has 25-120 degrees of motion. He has a 25 degree quad lag I can not palpate a defect. Assessment & Plan Assessment & Plan (1) Rupture of right quadriceps tendon: Comment: repair 09/29/24 with re-rupture on 09/30/24 Repair again performed on 10/13/24 *Right quad tendon irrigation and debridement 11/03/2024 Code(s): S76.111A - Strain of right quadriceps muscle, fascia and tendon, initial encounter Category: Medical Qualifiers: Encounter type: initial encounter Qualified Code(s): S76.111A - Strain of right quadriceps muscle, fascia and tendon, initial encounter Plan: 69-year-old status post quad rupture subsequent repair complicated by infection. He has done quite well even though I suspect he will not obtain full extension. He has decent quad strength which is surprising and I can not palpate a defect. He is ambulatory but still uses a brace. I think the brace locked past 30 degrees while ambulating is a good idea for as long as he can tolerate it. There is no additional intervention warranted at this time. I do not think he is a candidate for reconstruction. He understands this. We will continue his activities as tolerated and follow up on a PRN basis. Plan He may follow up PRN Coding Level of Care Code Est Pt Level 3 (03221) Diagnoses Rupture of right quadriceps tendon, initial encounter S76.111A Encounter type: initial encounter
--- OUTSIDE RECORDS SUMMARY | 2025-01-29 14:18 | XMS_ITS | Encounter Summary ---
Author Organization [facility] Address [address] [place] [address] Care Team Providers Care Tree Chipper Name Role Phone Fausto Pat NP Primary Care Provider Encounter Details Date Type Department Care Team (Late st Contact Info) Description 10/05/2024 Lab Requisition [facility] - Main Lab [address] [facility] [place] [address] Sara Blanc MD [address] [place] [address] Encounter for other general examination Social History [...] CBC auto differential (10/05/2024 5:24 AM EST) [facility] Signature WBC 10.0 4.8 - 10.8 K/mcL [...] Res ult [facility] [address] [place] [address], [place] [phone] * Magnesium (10/05/2024 5:24 AM EST) Magnesium 2.1 1.9 - 2.6 mg/dL LAB CHEMISTRY METHOD 10/05/2024 12:[address] [facility] Blood Venous blood specimen / Unknown Venipuncture / Unknown 10/05/2024 5:24 AM EST 10/05/2024 10:54 AM EST Sara Blanc MD LAB BLOOD ORDERABLES Final Res ult [facility] [address] [place] [address], [place] [phone] * (ABNORMAL) Comprehensive metabolic panel (10/05/2024 5:24 [...] ORDERABLES Final Res ult Performing Organization Address City/State/[facility] Co de Phone Number [facility] ([facility]) [facility] [address] [place] [address], documented in this encounter Visit Diagnoses Diagnosis Encounter for other general examination documented in this encounter Care Teams Tree Chipper Relationship Specialty Start Date End Date Fausto Pat NP [address] [place], [place] PCP - General Family Medicine 10/17/24 documented as of this encounter
== END 2025-01-29 14:37 | disposition home or self-care (01) ==
LOC: HO.HOS 12:56
PROVIDERS: PCP Nurse Practitioner Family; Visit Provider Orthopaedic Surgery
DX: S76.111A Strain of right quadriceps muscle, fascia and tendon, initial encounter (principal)
CPT/HCPCS: 99213

== ENCOUNTER → 2025-01-29 12:56 | Outpatient (BNVA) | payer MEDICARE, SELFPAY | PROVIDERS: PCP Nurse Practitioner Family; Visit Provider Orthopaedic Surgery | DX: S76.111D Strain of right quadriceps muscle, fascia and tendon, subsequent encounter (principal) | CPT/HCPCS: 99212 ==

== ENCOUNTER 2025-02-22 08:30 | Outpatient (REF) | payer MEDICARE, SELFPAY ==
--- OUTSIDE RECORDS SUMMARY | 2025-02-22 08:41 | XMS_ITS | Encounter Summary ---
Author Organization [facility] Address [address] [place] [address] Care Team Providers Care Auto Air Conditioning Mechanic Name Role Phone Fautso Pat NP Primary Care Provider Encounter Details Date Type Department Care Team (Late st Contact Info) Description 10/05/2024 Lab Requisition [facility] - Main Lab 299 [facility] [place] [address] Sara Blanc MD [address] [place] [address] Encounter for other general examination Social History [...] CBC auto differential (10/05/2024 5:24 AM EST) [facility] Signature WBC 10.0 4.8 - 10.8 K/mcL LAB HEMETOLOGY METHOD 10/05/2024 11:37 AM [facility] RBC 4.30(L) 4.50 - 5.50 M/mcL LAB HEMETOLOGY METHOD 10/05/2024 11:37 AM [facility] Hemoglobin 14.3 13.5 - 17.5 g/dL LAB HEMETOLOGY METHOD 10/05/2024 11:37 AM [facility] LAB Hematocrit 42.4 42.0 - 54.0 % LAB HEMETOLOGY METHOD 10/05/2024 11:37 AM [facility] LAB MCV 99.3(H) 79.0 - 98.0 FL LAB HEMETOLOGY METHOD 10/05/2024 11:37 AM [facility] LAB MCH 33.5(H) 27.0 - 32.0 pcg LAB HEMETOLOGY METHOD 10/05/2024 11:37 AM [facility] LAB MCHC 33.7 32.0 - 37.0 g/dL LAB HEMETOLOGY METHOD 10/05/2024 11:37 AM [facility] RDW 13.1 11.0 - 15.0 % LAB HEMETOLOGY METHOD 10/05/2024 11:37 AM [facility] Platelets 322 130 - 400 K/mcL LAB HEMETOLOGY METHOD 10/05/2024 11:37 AM [facility] MPV 10.9 7.0 - 11.0 FL LAB HEMETOLOGY METHOD 10/05/2024 11:37 AM [facility] NRBC 0.0 <1.0 % LAB HEMETOLOGY METHOD 10/05/2024 11:37 AM [facility] NRBC Absolute 0.00 <0.10 K/mcL LAB HEMETOLOGY METHOD 10/05/2024 11:37 AM [facility] Neutrophils Relative 72.7 % LAB HEMETOLOGY METHOD 10/05/2024 11:37 AM [facility] Lymphocytes Relative 11.5 % LAB HEMETOLOGY METHOD 10/05/2024 11:37 AM [facility] Monocytes Relative 9.5 % LAB HEMETOLOGY METHOD 10/05/2024 11:37 AM [facility] Eosinophils Relative 4.7 % LAB HEMETOLOGY METHOD 10/05/2024 11:37 AM [facility] Basophils Relative 1.1 % LAB HEMETOLOGY METHOD 10/05/2024 11:37 AM [facility] Immature Granulocytes Relative 0.5 % LAB HEMETOLOGY METHOD 10/05/2024 11:37 AM [facility] Neutrophils Absolute 7.28(H) 1.50 - 7.00 K/mcL LAB HEMETOLOGY METHOD 10/05/2024 11:37 AM [facility] Lymphocytes Absolute 1.15 1.00 - 5.00 K/mcL LAB HEMETOLOGY METHOD 10/05/2024 11:37 AM [facility] Monocytes Absolute 0.95 0.20 - 1.00 K/mcL LAB HEMETOLOGY METHOD 10/05/2024 11:37 AM [facility] Eosinophils Absolute 0.47 0.00 - 0.50 K/mcL LAB HEMETOLOGY METHOD 10/05/2024 11:37 AM [facility] Basophils Absolute 0.11 0.00 - 0.20 K/mcL LAB HEMETOLOGY METHOD 10/05/2024 11:37 AM [facility] Immature Granulocytes Absolute 0.05(H) 0.00 - 0.03 K/mcL LAB HEMETOLOGY METHOD 10/05/2024 11:37 AM EST [facility] Blood Venous blood specimen / Unknown Venipuncture / Unknown 10/05/2024 5:24 AM EST 10/05/2024 10:54 AM EST Sara Blanc MD LAB BLOOD ORDERABLES Final Res ult [facility] [address] [place] [address], [place] [phone] * Magnesium (10/05/2024 5:24 AM EST) Magnesium 2.1 1.9 - 2.6 mg/dL LAB CHEMISTRY METHOD 10/05/2024 12:10 PM [facility] Blood Venous blood specimen / Unknown Venipuncture / Unknown 10/05/2024 5:24 AM EST 10/05/2024 10:54 AM EST Sara Blanc MD LAB BLOOD ORDERABLES Final Res ult [facility] [address] [place] [address], [place] [phone] * (ABNORMAL) Comprehensive metabolic panel (10/05/2024 5:24 AM EST) Sodium 139 133 - 145 mmol/L LAB CHEMISTRY METHOD 10/05/2024 12:16 PM [facility] Potassium 4.1 3.5 - 5.5 mmol/L LAB CHEMISTRY METHOD 10/05/2024 12:16 PM [facility] Chloride 103 96 - 110 mmol/L LAB CHEMISTRY METHOD 10/05/2024 12:16 PM [facility] CO2 26 21 - 32 mmol/L LAB CHEMISTRY METHOD 10/05/2024 12:16 PM [facility] Anion Gap 10 3 - 11 LAB CHEMISTRY METHOD 10/05/2024 12:16 PM [facility] Glucose 82 70 - 100 mg/dL LAB CHEMISTRY METHOD 10/05/2024 12:16 PM [facility] BUN 17 5 - 25 mg/dL LAB CHEMISTRY METHOD 10/05/2024 12:16 PM [facility] Creatinine 0.97 0.70 - 1.30 mg/dL LAB CHEMISTRY METHOD 10/05/2024 12:16 PM [facility] eGFR 83 >=60 mL/min/1. 73m2 LAB CHEMISTRY METHOD 10/05/2024 12:16 PM [facility] Comment:Calculation based on the Chronic Kidney Disease Epidemiology Collaboration (CKD-EPI) equation refit without adjustment for race. BUN/Creatinine Ratio 17.5 LAB CHEMISTRY METHOD 10/05/2024 12:16 PM [facility] Calcium 9.1 8.5 - 10.5 mg/dL LAB CHEMISTRY METHOD 10/05/2024 12:16 PM [facility] AST (SGOT) 25 10 - 42 unit/L LAB CHEMISTRY METHOD 10/05/2024 12:16 PM [facility] ALT (SGPT) 35 10 - 60 unit/L LAB CHEMISTRY METHOD 10/05/2024 12:16 PM [facility] Alkaline Phosphatase 83 42 - 121 unit/L LAB CHEMISTRY METHOD 10/05/2024 12:16 PM [facility] Total Protein 6.8 6.0 - 8.0 g/dL LAB CHEMISTRY METHOD 10/05/2024 12:16 PM [facility] Albumin 3.3 3.2 - 5.0 g/dL LAB CHEMISTRY METHOD 10/05/2024 12:16 PM [facility] Total Bilirubin 1.5(H) 0.0 - 1.4 mg/dL LAB CHEMISTRY METHOD 10/05/2024 12:16 PM [facility] Blood Venous blood specimen / Unknown Venipuncture / Unknown 10/05/2024 5:24 AM EST 10/05/2024 10:54 AM EST us Sara Blanc MD LAB BLOOD ORDERABLES Final Res ult [facility]) [facility] [address] [place] [address], documented in this encounter Visit Diagnoses Diagnosis Encounter for other general examination documented in this encounter Care Teams Auto Air Conditioning Mechanic Relationship Specialty Start Date End Date Fausto Pat NP [address] [place], [place] PCP - General Family Medicine 10/17/24 documented as of this encounter
[2025-02-22 10:38] LABS: MANUAL DIFF FLAG NO
[2025-02-22 10:58] LABS: Hematocrit 50.1 % (42.0-52.0); Hemoglobin 17.4 g/dl (14.0-18.0); Imm Gran Abs Auto 0.02 X10*3/uL (0.00-0.03); Imm Gran Pct Auto 0.3 % (0.0-0.4); Lymphocytes Absolute Auto 1.6 X10*3/uL (1.2-4.9); Mean Corpuscular HGB Conc 34.7 g/dl (31.0-36.0); Mean Corpuscular Hemoglobin 31.5 pg (27.0-33.0); Mean Corpuscular Volume 90.8 fL (80.0-98.0); NRBC Abs Auto 0.000 X10*3/uL (0.0-0.012); NRBC Pct Auto 0.0 /100WBC (0.0-0.2); Platelet Count 181 X10*3/uL (160-400); Red Blood Count 5.52 X10*6/uL (4.60-5.80); White Blood Count 7.3 X10*3/uL (4.8-10.8)
== END 2025-02-22 08:31 | disposition home or self-care (01) ==
LOC: HO.HMGCLDS 08:30
PROVIDERS: PCP Nurse Practitioner Family; Visit Provider Nurse Practitioner Family
DX: R79.89 Other specified abnormal findings of blood chemistry (principal); Z12.5 Encounter for screening for malignant neoplasm of prostate
CPT/HCPCS: 36415; 84153; 85025

== ENCOUNTER 2025-02-26 15:41 | Outpatient (AMB) | payer MEDICARE, SELFPAY ==
[2025-02-26 15:51] VITALS: BP 162/86; PULSE 60; RESP 16; TEMP 36.8; O2SAT 98; BMI 33.7
--- NOTE | 2025-02-26 15:51 | A.OFFPC_ITS ---
Vital Signs 02/26/25 15:51 Height 5 ft 10 in Weight 235 lb BMI 33.7 BP 162/86 H Blood Pressure Location Lt brachial Position Sitting Respiration 16 Pulse 60 Pulse Source Pulse Oximeter Temp 98.3 F Temp Source Oral Pulse Oximetry (%) 98 Oxygen Delivery Method Room Air Intake Visit Reasons: Followup htn, meds Assistant Prosecuting Attorney Required: No Accompanied by: Self / Same As Patient Allergies No Known Allergies (No Known Allergies*) Allergy (Verified 02/26/25 15:52) Medication List - Last Reconciled 02/26/25 by Fausto Pat MANUFACTURING PRODUCTION TECHNICIAN- allopurinol 100 mg PO DAILY 90 days glucosamine sulfate (Glucosamine) 500 mg PO DAILY hydrochlorothiazide 12.5 mg PO DAILY losartan 25 mg PO DAILY multivitamin 1 tab PO DAILY omega 6-wjr-pxe-fish oil 1,000 (120-180) mg (Fish Oil) 1 cap PO DAILY Tobacco use date assessed: 02/26/25 Fall risk assessment: No Falls in past year Last assessed Fall Risk: 02/26/25 Dental Screening Dental Screen Date: 02/26/25 Did you have a dental visit in the last 12 months?: Yes Did you have a dental problem in the last 6 months where you did not have access to dental care?: No Was dental information given to patient?: Patient has dentist HPI Followup htn, meds HPI Details Chief Complaint The patient presents for follow-up care for hypertension and recovery from quadriceps tendon repair. History of Present Illness The patient is a 69-year-old male presenting with hypertension management and recovery from quadriceps tendon repair. He has a history of quadriceps tendon tears, which were surgically repaired twice starting in September 2024. Post- surgery, he developed an infection requiring irrigation and debridement. Currently, he is ambulating with a cane and attending physical therapy, showing improvement in range of motion, particularly in knee flexion and extension. He is unable to fully extend his knee to 180 degrees without assistance but is progressing well. He denies experiencing chest pain, shortness of breath, or blurred vision. His blood pressure management will include the addition of losartan to his medication regimen. Social History Health Maintenance Review of Systems - Cardiovascular: Denies chest pain - Respiratory: Denies shortness of breat h - Neurological: Denies blurred vision, d izziness, or headaches Physical Exam General: Cooperative, healthy appearing, comfortable, no acute distress and well developed Orientation: Patient oriented x3 Limitations: Walking with a cane, unable to extend right lower extremity to 180 degrees without assistance Head: Normal to inspection Ears: Hearing grossly normal bilaterally Nose: Normal external nose present Face and sinus: Normal facial exam Eyes: Appearance normal, both eyes and all related structures Neck: Normal visual inspection and Yes full ROM Respiratory: Normal respiratory effort and able to speak in complete sentences. Clear to auscultation bilaterally Cardiovascular: Regular rate and rhythm. Normal S1 and S2 GI: Normal to inspection. Soft to palpation and nontender Skin: No rashes or lesions noted Neuro: Patient oriented x3 Extremities: Normal to inspection, increased range of motion in right lower ext remity, especially with knee flexion and extension, swelling to BLE R>L Results Plan The patient's hypertension will be managed by adding losartan to his current medication regimen. He is advised to continue physical therapy to improve knee function and range of motion. He will monitor his blood pressure at home and provide readings for further evaluation. Discussion Notes I discussed with the patient the addition of losartan to his medication regimen to better manage his hypertension. We also talked about the importance of continuing physical therapy to enhance his knee recovery. I advised him to monitor his blood pressure at home and to report the readings for further assessment (dropping off values in the near future) Patient Instructions - Take losartan as prescribed to help disha zhang blood pressure. - Continue attending physical therapy se ssions to improve knee mobility. - Monitor blood pressure at home and yumiko ng readings to the next appointment. [facility] Medical History HTN (hypertension) First degree atrioventricular block by electrocardiogram Anemia Subclinical hypothyroidism Cellulitis Dyslipidemia Obesity Rupture of right quadriceps tendon Gout Paronychia of great toe Elevated TSH Screening PSA (prostate specific antigen) Varicose veins of both lower extremities Surgical History History of amputation of left great toe (07/01/22) Hx of hand surgery Status post debridement (06/16/22) Hx of vascular surgery Hx of colonoscopy Family History Father HTN (hypertension) Mother Parkinsons disease Social History Household Members: None Housing: House Are you a primary career and guidance counselor to a significant other at home: No Do you presently have visiting nurse or other home services: No Alcohol intake: current Alcohol intake frequency: holidays/special occasions only Comment: COUNTS CORRECT Patient Tobacco Use Status: Never used Tobacco e-Cigarette/Vaping Use: Never Used Second Hand Smoke Exposure: No Advance Directives Date on File: 10/13/23 service: No Current occupational status: retired Cognitive needs: No Hearing needs: No Vision needs: No Questionnaire PHQ-9 Over the last 2 weeks, how often have you been bothered by any of the following problems? 1. Little interest or pleasure in doing things: not at all 2. Feeling down, depressed, or hopeless: not at all 3. Trouble falling or staying asleep, or sleeping too much: not at all 4. Feeling tired or having little energy: not at all 5. Poor appetite or overeating: not at all 6. Feeling bad about yourself - or that you are a failure or have let yourself or your family down: not at all 7. Trouble concentrating on things, such as reading the newspaper or watching television: not at all 8. Moving or speaking so slowly that other people could have noticed. Or the opposite - being so fidgety or restless that you have been moving around a lot more than usual: not at all 9. Thoughts that you would be better off or of hurting yourself in some way: not at all Total score: 0 Depression Screening Interpretation: Negative Depression Screening Done: Yes 70122 - PHQ-9 Billing: Yes Source: Developed by Drs. Ranjan Brambila, Tracy Schneider, Angel Best and colleagues, with an educational gabriel from [employer]. Thrive Questionnaire Date Thrive assessed: 11/03/24 AUDIT C Alcohol Use Questionnaire (AUDIT-C) 1. How often do you have a drink containing alcohol?: Monthly or less 2. How many drinks containing alcohol do you have on a typical day when you are drinking?: 1 or 2 Total Score: 1 Score Reviewed/Action Taken: Yes YONATAN-7 AMB Questionnaire YONATAN-7 Date YONATAN - 7 assessed: 10/04/23 Feeling nervous, anxious, or on edge: 0 = Not at all Not being able to stop or control worryin = Not at all Worrying too much about different things: 0 = Not at all Trouble relaxin = Not at all Being so restless that it is hard to sit still: 0 = Not at all Becoming easily annoyed or irritable: 0 = Not at all Feeling afraid as if something awful might happen: 0 = Not at all Total YONATAN-7 score (0-4 normal; 5-9 mild; 10-14 moderate; 15-21 severe): 0 Source: Developed by Drs. Ranjan Brambila, Tracy Schneider, Angel Best and colleagues, with an educational gabriel from [employer]. YONATAN-7 Assessment Billing YONATAN-7 Assessment Tool: YONATAN-7 Assessment 39105 Physical exam (Primary Care) Vital Signs: Last Vital Signs Temp 98.3 F 02/26/25 15:51 Pulse 60 02/26/25 15:51 Resp 16 02/26/25 15:51 BP 162/86 H 02/26/25 15:51 Pulse Ox 98 02/26/25 15:51 Oxygen Delivery Method Room Air 02/26/25 15:51 BMI result Body Mass Index 33.7 Tobacco/Smoking Status: Tobacco use Status Tobacco use date assessed 02/26/25 02/26/25 15:54 Patient Tobacco Use Status Never used Tobacco 02/26/25 15:54 e-Cigarette/Vaping Use Never Used 02/26/25 15:54 PHQ-9: PHQ-9 Score PHQ-9: Total score 0 02/26/25 16:05 Depression Screening Interpretation: Negative Thrive Assessment: Date of Thrive Assessment Date Thrive assessed 11/03/24 02/26/25 15:54 Coding Level of Care Code Est Pt Level 3 (33047) Diagnoses Primary hypertension I10 Hypertension type: primary hypertension Rupture of right quadriceps tendon, initial encounter S76.111A Encounter type: initial encounter Additional Codes YONATAN-7 Assessment Billing - YONATAN-7 Assessment Tool: YONATAN-7 Assessment 79116 ([id number]) PHQ-9 - 53546 - PHQ-9 Billing: Yes ([id number]) Assessment & Plan Assessment & Plan (1) HTN (hypertension): Code(s): I10 - Essential (primary) hypertension Category: Medical Qualifiers: Hypertension type: primary hypertension Qualified Code(s): I10 - Essential (primary) hypertension (2) Rupture of right quadriceps tendon: Comment: repair 09/29/24 with re-rupture on 09/30/24 Repair again performed on 10/13/24 *Right quad tendon irrigation and debridement 11/03/2024 Code(s): S76.111A - Strain of right quadriceps muscle, fascia and tendon, initial encounter Category: Medical Qualifiers: Encounter type: initial encounter Qualified Code(s): S76.111A - Strain of right quadriceps muscle, fascia and tendon, initial encounter Plan . Orders: Orders Comprehensive [place]son. Panel Fast Today I10 - Essential (primary) hypertension Lipid Panel Today I10 - Essential (primary) hypertension Medications: New losartan 25 mg PO DAILY 90 tabs 0RF
--- OUTSIDE RECORDS SUMMARY | 2025-02-26 16:48 | XMS_ITS | Encounter Summary ---
Author Organization [facility] Address [address] [place] [address] Care Team Providers Care Grounds Manager Name Role Phone Fausto Pat NP Primary Care Provider Encounter Details Date Type Department Care Team (Late st Contact Info) Description 10/05/2024 Lab Requisition [facility] - Main Lab [address] [facility] [place] [address] Sara Blanc MD [address] [place] [id number] Encounter for other general examination Social History [...] CBC auto differential (10/05/2024 5:24 AM EST) [facility] Signature WBC 10.0 4.8 - 10.8 K/mcL [...] LAB HEMETOLOGY METHOD 10/05/2024 11:37 AM EST [facility] Blood Venous blood specimen / Unknown Venipuncture / Unknown 10/05/2024 5:24 AM EST 10/05/2024 10:54 AM EST Sara Blanc MD LAB BLOOD ORDERABLES Final Res ult [facility] [address] [place] [address], [place] [phone] * Magnesium (10/05/2024 5:24 AM EST) Magnesium 2.1 1.9 - 2.6 mg/dL LAB CHEMISTRY METHOD 10/05/2024 12:10 PM [facility] Blood Venous blood specimen / Unknown Venipuncture / Unknown 10/05/2024 5:24 AM EST 10/05/2024 10:54 AM EST Sara Blanc MD LAB BLOOD ORDERABLES Final Res ult [facility] [address] [place] [address], [place] [phone] * (ABNORMAL) Comprehensive metabolic panel (10/05/2024 5:24 [...] [facility] Comment:Calculation based on the [...] MD LAB BLOOD ORDERABLES Final Res ult [facility] [address] [place] [address], documented in this encounter Visit Diagnoses Diagnosis Encounter for other general examination documented in this encounter Care Teams Grounds Manager Relationship Specialty Start Date End Date Fausto Pat NP [address] [place], [place] PCP - General Family Medicine 10/17/24 documented as of this encounter
== END 2025-02-26 16:42 | disposition home or self-care (01) ==
LOC: HO.HMCC 15:41
PROVIDERS: PCP Nurse Practitioner Family; Visit Provider Nurse Practitioner Family
DX: I10 Essential (primary) hypertension (principal); S76.111A Strain of right quadriceps muscle, fascia and tendon, initial encounter

== ENCOUNTER → 2025-02-26 15:41 | Outpatient (BNVA) | payer MEDICARE, SELFPAY | PROVIDERS: PCP Nurse Practitioner Family; Visit Provider Nurse Practitioner Family | DX: I10 Essential (primary) hypertension (principal); S76.111D Strain of right quadriceps muscle, fascia and tendon, subsequent encounter | CPT/HCPCS: 96127; 99212 ==

== ENCOUNTER 2025-03-01 11:00 | Outpatient (RCR) | payer MEDICARE, SELFPAY ==
--- NOTE | 2024-12-27 12:02 | MHC.PT.EP ---
[facility] [place] Office [place] Office [place] Office [address] Arturo Catalan [address] [phone] F: [phone] F: [phone] F: [phone] F: [phone] Physical Therapy Plan of Care Date of Evaluation: 12/27/24 Date of Surgery: 09/29/24 10/05/2411/03 Diagnosis: strain of R quad muscle, fascia and tendon rupture of R quad tendon 0-45 baseline. may progress 10deg/week, NO RESISTANCE Assessment: 69 y/o male s/p R quad repair on 09/29 after a slip and fall on ice 8 days prior. He then had a subsequent fall on 09/30 rupturing repair. He underwent second surgery quad tendon repair on 10/13. He was WBAT with extension brace. He then had infection at incision site and underwent I+D 11/03 with 6 weeks IV antibiotics. Currently he is living home alone, ambulating with single point cane and donjoy brace locked in extension, and relying on his brother for transportation. Difficult with walking especially in the [place] around the house, stairs, driving, chopping wood, and heavy tasks. Examination shows knee ROM 0-45, poor quad set, significant quad lag with SLR, and impaired gait pattern. Recommend PT 2x/week for 12 weeks to address impairments, implement HEP, and optimize functional mobility. Frequency and Duration: The patient will be seen 2x/week for 12 weeks Short Term Goals: 6 weeks I with HEP Pt will demonstrate >100* in 5 weeks Pt will demonstrate SLR without quad lag to faciliate ambulation [employer] Goals: 12 weeks I with HEP and self management of sx Pt will demonstrate full R knee ROM Pt will be ambulating without AD and without brace with pain < 3/10 and no signs of instability Pt will be able to ascend/ descend stairs wtih step through pattern Treatment Plan: Modalities to reduce pain, spasms and effusion. Manual therapy to restore motion and function. Therapeutic exercise to improve strength and flexibility. Neuromuscular re-education for posture and balance. Therapeutic activities to return to functional activities of daily living. Electronically signed by: Saida Rosas PT Please sign and return to therapist. Thank you for your referral.
--- NOTE | 2025-03-05 12:36 | MHC.PT.DC ---
[facility] [place] Office [place] Office [place] Office [address] Arturo Catalan [address] [phone] F: [phone] F: [phone] F: [phone] F: [phone] Physical Therapy Discharge Report Diagnosis: strain of R quad muscle, fascia and tendon rupture of R quad tendon 0-45 baseline. may progress 10deg/week, NO RESISTANCE Date of Surgery: 09/29/24 10/05/2411/03 Date of Evaluation: 12/27/24 Date of Discharge: 03/05/25 Treatments to Date: 16 Cancellations to Date: 0 No Shows to Date: 0 Discharge Status: Improved Function Independent with HEP Discharge Summary: At this time, pt is appropriate for d/c to I HEP. He continues with decreased quad strength and therefore reviewed safety, ambulating with brace (especially if walking downhill), and continuing with HEP. Electronically signed by: Saida Rosas PT Please sign and return to therapist. Thank you for your referral.
== END 2025-03-05 12:36 | disposition home or self-care (01) ==
LOC: HO.PT 11:00
PROVIDERS: PCP Nurse Practitioner Family; Visit Provider Orthopaedic Surgery
DX: S76.111D Strain of right quadriceps muscle, fascia and tendon, subsequent encounter (principal)
CPT/HCPCS: 97110; 97112; 97140; 97162; 97530

== ENCOUNTER 2025-03-26 15:45 | Outpatient (AMB) | payer MEDICARE, SELFPAY ==
--- OUTSIDE RECORDS SUMMARY | 2025-03-26 15:48 | XMS_ITS | Encounter Summary ---
Author Organization [facility] Address [address] [place] [address] Care Team Providers Care Wire Coating Machine Operator Name Role Phone Fausto Pat NP Primary Care Provider Encounter Details Date Type Department Care Team (Late st Contact Info) Description 10/05/2024 Lab Requisition [facility] - Main Lab [address] [facility] [place] [address] Sara Blanc MD [address] [place] [id number] Encounter for other general examination Social History [...] CBC auto differential (10/05/2024 5:24 AM EST) [facility] Signature WBC 10.0 4.8 - 10.8 K/mcL LAB HEMETOLOGY METHOD 10/05/2024 11:37 AM [facility] RBC 4.30(L) 4.50 - 5.50 M/mcL LAB HEMETOLOGY METHOD 10/05/2024 11:37 AM [facility] Hemoglobin 14.3 13.5 - 17.5 g/dL LAB HEMETOLOGY METHOD 10/05/2024 11:37 AM [facility] Hematocrit 42.4 42.0 - 54.0 % LAB HEMETOLOGY METHOD 10/05/2024 11:37 AM [facility] MCV 99.3(H) 79.0 - 98.0 FL LAB HEMETOLOGY METHOD 10/05/2024 11:37 AM [facility] MCH 33.5(H) 27.0 - 32.0 pcg LAB HEMETOLOGY METHOD 10/05/2024 11:37 AM [facility] MCHC 33.7 32.0 - 37.0 g/dL LAB HEMETOLOGY METHOD 10/05/2024 11:37 AM [facility] RDW 13.1 11.0 - 15.0 % LAB HEMETOLOGY METHOD 10/05/2024 11:37 AM [facility] Platelets 322 130 - 400 K/mcL LAB HEMETOLOGY METHOD 10/05/2024 11:37 AM [facility] MPV 10.9 7.0 - 11.0 FL LAB HEMETOLOGY METHOD 10/05/2024 11:37 AM [facility] NRBC 0.0 <1.0 % LAB HEMETOLOGY METHOD 10/05/2024 11:37 AM [facility] NRBC Absolute 0.00 <0.10 K/mcL LAB HEMETOLOGY METHOD 10/05/2024 11:37 AM [facility] Neutrophils Relative 72.7 % LAB HEMETOLOGY METHOD 10/05/2024 11:37 AM [facility] Lymphocytes Relative 11.5 % LAB HEMETOLOGY METHOD 10/05/2024 11:37 AM [facility] Monocytes Relative 9.5 % LAB HEMETOLOGY METHOD 10/05/2024 11:37 AM [facility] Eosinophils Relative 4.7 % LAB HEMETOLOGY METHOD 10/05/2024 11:37 AM [facility] Basophils Relative 1.1 % LAB HEMETOLOGY METHOD 10/05/2024 11:37 AM [facility] Immature Granulocytes Relative 0.5 % LAB HEMETOLOGY METHOD 10/05/2024 11:37 AM [facility] Neutrophils Absolute 7.28(H) 1.50 - 7.00 K/mcL LAB HEMETOLOGY METHOD 10/05/2024 11:37 AM [facility] Lymphocytes Absolute 1.15 1.00 - 5.00 K/mcL LAB HEMETOLOGY METHOD 10/05/2024 11:37 AM [facility] Monocytes Absolute 0.95 0.20 - 1.00 K/mcL LAB HEMETOLOGY METHOD 10/05/2024 11:37 AM [facility] Eosinophils Absolute 0.47 0.00 - 0.50 K/mcL LAB HEMETOLOGY METHOD 10/05/2024 11:37 AM [facility] Basophils Absolute 0.11 0.00 - 0.20 K/mcL LAB HEMETOLOGY METHOD 10/05/2024 11:37 AM [facility] Immature Granulocytes Absolute 0.05(H) 0.00 - 0.03 K/mcL LAB HEMETOLOGY METHOD 10/05/2024 11:37 AM EST [facility] Blood Venous blood specimen / Unknown Venipuncture / Unknown 10/05/2024 5:24 AM EST 10/05/2024 10:54 AM EST Sara Blanc MD LAB BLOOD ORDERABLES Final Res ult [facility] [address] [place] [address], [place] [phone] * Magnesium (10/05/2024 5:24 AM EST) Magnesium 2.1 1.9 - 2.6 mg/dL LAB CHEMISTRY METHOD 10/05/2024 12:10 PM [facility] Blood Venous blood specimen / Unknown Venipuncture / Unknown 10/05/2024 5:24 AM EST 10/05/2024 10:54 AM EST Sraa Blanc MD LAB BLOOD ORDERABLES Final Res ult [facility] [address] [place] [address], [place] [phone] * (ABNORMAL) Comprehensive metabolic panel (10/05/2024 5:24 AM EST) Sodium 139 133 - 145 mmol/L LAB CHEMISTRY METHOD 10/05/2024 12:16 PM [facility] Potassium 4.1 3.5 - 5.5 mmol/L LAB CHEMISTRY METHOD 10/05/2024 12:16 PM [facility] Chloride 103 96 - 110 mmol/L LAB CHEMISTRY METHOD 10/05/2024 12:16 PM [facility] CO2 26 21 - 32 mmol/L LAB CHEMISTRY METHOD 10/05/2024 12:16 PM [facility] Anion Gap 10 3 - 11 LAB CHEMISTRY METHOD 10/05/2024 12:16 PM [facility] Glucose 82 70 - 100 mg/dL LAB CHEMISTRY METHOD 10/05/2024 12:16 PM [facility] BUN 17 5 - 25 mg/dL LAB CHEMISTRY METHOD 10/05/2024 12:16 PM [facility] Creatinine 0.97 0.70 - 1.30 mg/dL LAB CHEMISTRY METHOD 10/05/2024 12:16 PM [facility] eGFR 83 >=60 mL/min/1. 73m2 LAB CHEMISTRY METHOD 10/05/2024 12:16 PM [facility] Comment:Calculation based on the Chronic Kidney Disease Epidemiology Collaboration (CKD-EPI) equation refit without adjustment for race. BUN/Creatinine Ratio 17.5 LAB CHEMISTRY METHOD 10/05/2024 12:16 PM [facility] Calcium 9.1 8.5 - 10.5 mg/dL LAB CHEMISTRY METHOD 10/05/2024 12:16 PM [facility] AST (SGOT) 25 10 - 42 unit/L LAB CHEMISTRY METHOD 10/05/2024 12:16 PM [facility] ALT (SGPT) 35 10 - 60 unit/L LAB CHEMISTRY METHOD 10/05/2024 12:16 PM [facility] Alkaline Phosphatase 83 42 - 121 unit/L LAB CHEMISTRY METHOD 10/05/2024 12:16 PM [facility] Total Protein 6.8 6.0 - 8.0 g/dL LAB CHEMISTRY METHOD 10/05/2024 12:16 PM [facility] Albumin 3.3 3.2 - 5.0 g/dL LAB CHEMISTRY METHOD 10/05/2024 12:16 PM [facility] Total Bilirubin 1.5(H) 0.0 - 1.4 mg/dL LAB CHEMISTRY METHOD 10/05/2024 12:16 PM [facility] Blood Venous blood specimen / Unknown Venipuncture / Unknown 10/05/2024 5:24 AM EST 10/05/2024 10:54 AM EST us Sara Blanc MD LAB BLOOD ORDERABLES Final Res ult [facility] [address] [place] [address], documented in this encounter Visit Diagnoses Diagnosis Encounter for other general examination documented in this encounter Care Teams Wire Coating Machine Operator Relationship Specialty Start Date End Date Fausto Pat NP [address] [place], [place] PCP - General Family Medicine 10/17/24 documented as of this encounter
[2025-03-26 15:57] VITALS: BP 116/64; PULSE 78; TEMP 37.2; O2SAT 96; BMI 33.9
--- NOTE | 2025-03-26 15:57 | AM.OFFWIN_ITS ---
Intake Vital Signs 3 03/26/25 15:57 Height 5 ft 10 in Weight 236 lb 2 oz BMI 33.9 BP 116/64 Blood Pressure Location Lt brachial Position Sitting Pulse 78 Pulse Source Pulse Oximeter Temp 99.0 F Temp Source Oral Pulse Oximetry (%) 96 Oxygen Delivery Method Room Air Intake Visit Reasons: EP-lt ankle swollen & redness Patient Tobacco Use Status: Never used Tobacco Corporate Associate Required: No Allergies No Known Allergies (No Known Allergies*) Allergy (Verified 03/26/25 16:02) Do you need a note to return to daycare/school/sports/work: No HPI HPI Comments 2 History of Present Illness0 Details 69 y/o male patient who presents to the walk in clinic with c/o redness, swelling and painful left lower leg for 1 week. Pt reports that his Cat likes to scratch his Legs every morning waking him up to be fed. Pt reports pain with walking and standing. Denies fevers, chills, nausea or vomiting. In door Cat and fully vaccinated. Pt had his Tdap 8 years ago. [facility] Medical History (Updated 03/26/25 @ 16:34 by Jaquelin Carcamo NP) Cellulitis of skin HTN (hypertension) First degree atrioventricular block by electrocardiogram Anemia Subclinical hypothyroidism Cellulitis Dyslipidemia Obesity Rupture of right quadriceps tendon Gout Paronychia of great toe Elevated TSH Screening PSA (prostate specific antigen) Varicose veins of both lower extremities Surgical History History of amputation of left great toe (07/01/22) Hx of hand surgery Status post debridement (06/16/22) Hx of vascular surgery Hx of colonoscopy Family History Father HTN (hypertension) Mother Parkinsons disease Social History Household Members: None Housing: House Are you a primary overnight caregiver to a significant other at home: No Do you presently have visiting nurse or other home services: No Alcohol intake: current Alcohol intake frequency: holidays/special occasions only Comment: COUNTS CORRECT Patient Tobacco Use Status: Never used Tobacco e-Cigarette/Vaping Use: Never Used Second Hand Smoke Exposure: No Advance Directives Date on File: 10/13/23 service: No Current occupational status: retired Cognitive needs: No Hearing needs: No Vision needs: No Review of Systems Const All systems reviewed & are unremarkable except as noted in HPI and below Physical Exam Vital Signs: Last Vital Signs Temp 99.0 F 03/26/25 15:57 Pulse 78 03/26/25 15:57 BP 116/64 03/26/25 15:57 Pulse Ox 96 03/26/25 15:57 Oxygen Delivery Method Room Air 03/26/25 15:57 BMI result Body Mass Index 33.9 Const General: no acute distress Nutritional Appearance: obese Orientation/consciousness: patient oriented x3 Resp Effort & Inspection: normal respiratory effort Cardio Heart sounds: S1 normal heart sound present and S2 normal heart sound present Neuro General: patient oriented x3 and moves all extremities Gait exam (Neuro): Assisted gait required Gait assisted method: walker Motor exam (neuro): 5/5 motor strength present throughout Extrem Left lower extremity: full ROM, normal capillary refill and lower leg Details: erythema Location: of the proximal lower leg, of the mid lower leg and of the distal lower leg, tenderness, pitting edema Details: 3+ and warmth Ankle/foot/toe images: 2 1. Poorly demarcated, warm, erythematous area with associated edema and tenderness to palpation. Psych Speech and movement: Normal speech and movement present Assessment & Plan Assessment & Plan (1) Cellulitis of skin: Code(s): L03.90 - Cellulitis, unspecified Plan: Ordered Doxy for 10 days. Keep area clean and dry. May take Acetaminophen for pain relief. Medications: New 2 doxycycline hyclate 100 mg PO BID 20 caps 0RF 10 days L03.90 - Cellulitis, unspecified Coding Level of Care Code Est Pt Level 4 (67513) Diagnoses Cellulitis of skin L03.90 Time Spent (min) 20
== END 2025-03-26 16:42 | disposition home or self-care (01) ==
PROVIDERS: PCP Nurse Practitioner Family; Visit Provider Nurse Practitioner Family
DX: L03.90 Cellulitis, unspecified (principal)

== ENCOUNTER → 2025-03-26 15:45 | Outpatient (BNVA) | payer MEDICARE, SELFPAY | PROVIDERS: PCP Nurse Practitioner Family; Visit Provider Nurse Practitioner Family | DX: L03.90 Cellulitis, unspecified (principal) | CPT/HCPCS: 99212 ==

== ENCOUNTER 2025-05-09 08:45 | Emergency (ER) | payer MEDICARE, SELFPAY ==
--- NOTE | ~2025-05-09 | XR_ITS ---
EXAMINATION: XR FOOT, LEFT CLINICAL INFORMATION: history osteo, left pinky toe and above wound COMPARISON: 03/09/2023. TECHNIQUE: AP, lateral, and oblique views of the left foot. FINDINGS: There is no fracture, dislocation, or gross malalignment. There has been prior resection of the hallux at the level of the mid diaphysis of the first metatarsal. Previously seen erosive changes of the distal fifth metatarsal and proximal fifth digit have become corticated and sclerotic. There is no acute permeative bony change evident to suggest radiographic changes of osteomyelitis. Mild pes planus. The midfoot and hindfoot grossly image normally. There is a small plantar calcaneal spur. Soft tissues demonstrate a focus of gas just below the fifth MTP joint region. This suggests an ulceration. There is soft tissue swelling of the dorsal forefoot. XR/XR foot LT min 3V IMPRESSION: 1. Probable ulcer in the plantar region abutting the fifth MTP joint region. 2. No definite radiographic changes of osteomyelitis. 3. Sequela of previous osteomyelitis in the distal fifth metatarsal. 4. Prior resection of the first digit at the region of the mid metatarsal. Electronically signed by: Jeyson Cabezas MD 05/09/2025 10:28 AM EDT
[2025-05-09 08:50] VITALS: BP 169/75; PULSE 78; RESP 16; TEMP 37; O2SAT 94; BMI 37.5
[2025-05-09 09:02] VITALS: BP 148/80; PULSE 75; RESP 20; TEMP 36.6; O2SAT 97
--- NOTE | 2025-05-09 09:03 | PC.NURSE ---
69 M presents to ED with chronic L top/side of foot cut near baby toe, chronic, has gotten worse on wednesday and is draining pus yesterday, no active drainage now.CSMs present. Hx Left big toe amputation, hypertension, bone infections, thigh and tendon surgery on R side. A+OX4, calm, cooperative. Pt ambulates with a cane d/t being a little unstead on his feet. Pt denies any pain at this moment. RR even and unlabored, denies CP or SOB.
--- NOTE | 2025-05-09 09:27 | ED_ITS ---
HPI - General Adult General Chief complaint: Wound/Laceration Stated complaint: infection on foot Time Seen by Provider: 05/09/25 09:08 Source: patient Mode of arrival: ambulatory Limitations: no limitations History of Present Illness ED Provider: DR. Trevino HPI narrative: 69-year-old male came in for evaluation of left foot infection stated that increased pain and discharge from the wounds under his pinky toe. No fever, no chills, no trauma to the foot. Related Data Home Medications ?Medication ?Instructions ?Recorded ?Confirmed multivitamin 1 tab PO DAILY 03/09/2302/13 omega 4-qfc-bdy-fish oil 1,000 mg 1 cap PO DAILY 03/0902/26/25 (120 mg-180 mg) capsule (Fish Oil) glucosamine sulfate 500 mg tablet 500 mg PO DAILY 10/1502/26/25 (Glucosamine) Previous Rx's ?Medication ?Instructions ?Recorded allopurinol 100 mg tablet 100 mg PO DAILY 90 days #90 tabs 12/25/24 hydrochlorothiazide 12.5 mg tablet 12.5 mg PO DAILY #9 0 tabs 12/25/24 losartan 25 mg tablet 25 mg PO DAILY #90 tabs 02/13 12/08 doxycycline hyclate 100 mg capsule 100 mg PO BID 10 da ys #20 caps 03/26/25 doxycycline hyclate 100 mg tablet 100 mg PO BID #14 ta bs 05/09/25 Allergies Allergy/AdvReac Type Severity Reaction Status Date / Time No Known Allergies Allergy Verified 05/09/25 08:56 Review of Systems 2 Review of Systems: All other systems are reviewed and are negative Constitutional: Reports as per HPI and Reports no additional constitutional complaints Eyes: Reports as per HPI and Reports no additional eye complaints Reports system reviewed and no additional complaints, except as documented Cardiovascular: Reports as per HPI and Reports no additional cardiovascular complaints Respiratory: Reports as per HPI and Reports no additional respiratory complaints Gastrointestinal: Reports as per HPI and Reports no additional gastrointestinal complaints Genitourinary: Reports no additional female genitourinary complaints Musculoskeletal: Reports no additional musculoskeletal complaints Skin/Breast: Reports system reviewed and no additional complaints, except as docu Psychiatric: Reports no additional psychiatric complaints Endocrine: Reports no additional endocrine complaints Hematologic/Lymphatic: Reports no additional hematologic/lymphatic complaints Allergic/Immunologic: Reports no additional allergic/immunologic complaints Reports system reviewed and no additional complaints, except as documented and Reports Abnormal speech present [facility] Past Medical History Medical History Cellulitis of skin HTN (hypertension) First degree atrioventricular block by electrocardiogram Anemia Subclinical hypothyroidism Cellulitis Dyslipidemia Obesity Rupture of right quadriceps tendon Gout Paronychia of great toe Elevated TSH Screening PSA (prostate specific antigen) Varicose veins of both lower extremities Surgical History History of amputation of left great toe (07/01/22) Hx of hand surgery Status post debridement (06/16/22) Hx of vascular surgery Hx of colonoscopy Family History Family History Father HTN (hypertension) Mother Parkinsons disease Social History Social History Household Members: None Housing: House Are you a primary interior plant caretaker to a significant other at home: No Do you presently have visiting nurse or other home services: No Alcohol intake: current Alcohol intake frequency: 0-2 drinks per day Alcohol type: beer Comment: COUNTS CORRECT Patient Tobacco Use Status: Never used Tobacco Smoked in Last 30 Days: Yes e-Cigarette/Vaping Use: Never Used Second Hand Smoke Exposure: No Use of substances other than those prescribed or required for medical reasons: No Advance Directives: Yes Advance Directives on File: Yes Advance Directives Date on File: 10/13/23 service: No Current occupational status: retired Cognitive needs: No Hearing needs: No Vision needs: No Physical Exam ED Vital Signs: Vital Signs - 24 hr 05/09/25 08:50 05/09/25 09:02 05/09/25 10:57 Temperature 98.6 F 98 F 97.7 F Pulse Rate 78 75 59 Respiratory Rate 16 20 16 Blood Pressure 169/75 H 148/80 H 146/72 H Pulse Oximetry 94 97 97 Oxygen Delivery Method Room Air Room Air Room Air BMI result Body Mass Index 37.5 Vital signs have been reviewed and appear to be correct. Blood pressure elevated. Heart rate normal. Respiratory rate normal. Temperature normal. Oxygen saturation normal. Appearance: Alert. Oriented X3. No acute distress. Head: Normal external exam. Normocephalic. Atraumatic. No Raman signs noted. No raccoon eyes noted Eyes: PERRLA. EOMI. Conjunctiva and sclera normal. Eyelids normal. ENT: TM's Normal. Pharynx normal. Uvula midline. Moist mucous membranes. No trismus noted. No drooling noted. No muffled voice noted. Neck: Normal inspection. Neck supple. FROM. No adenopathy. Thyroid Normal. No meningeal signs. No neck mass noted. CVS: Normal heart rate and rhythm. Heart sound normal. No murmurs noted. Pulses normal throughout. Respiratory: No respiratory distress. Painless inspiration. Breath sounds normal. No wheezes/rales/rhonchi noted. Chest nontender. No accessory muscle usage noted or decreased air movement noted. Abdomen: Soft and nontender. Bowel sounds normal in all 4 quadrants. No distention noted. No organomegaly noted. No visible injury noted. Back: No CVA tenderness. Full range of motion noted. Skin: Skin warm and dry. Normal skin color. Normal skin turgor. No rashes/lesions/lacerations noted. Extremities: Left foot: 2 x 3 cm area of redness, no discharge, no fluctuation. Neuro: Oriented X 3. Cranial nerve exam: II-XII are grossly intact No motor deficit. No sensory deficit. Reflexes normal. Course Reevaluation(s) Reevaluation #1: Left foot cellulitis no sepsis or severe sepsis will restart the patient doxycycline after received 1st dose of IV. Return in 2 days to ruled out worsening of the infection. Time: 11:46 Medical Decision Making Differential Diagnosis Differential Diagnoses: The differential diagnosis associated with the presentation includes (Superficial cellulitis, osteomyelitis, sepsis, electrolyte derangement, severe anemia.) Admission/Observation Consideration of admission/observation: Escalation of care including admission/observation considered Lab Data MDM Lab Attestation statement: I reviewed the patient's lab results. 05/09/25 09:21 05/09/25 09:21 Labs: Lab Results 05/09/25 Range/Units 09:21 WBC 9.7 (4.8-10.8) X10*3/uL RBC 4.60 (4.60-5.80) X10*6/uL Hgb 15.3 (14.0-18.0) g/dl Hct 42.2 (42.0-52.0) % MCV 91.7 (80.0-98.0) fL MCH 33.3 H (27.0-33.0) pg MCHC 36.3 H (31.0-36.0) g/dl RDW 15.2 (11.0-16.0) % Plt Count 242 D (160-400) X10*3/uL MPV 9.7 (9.4-12.4) fL Immature Gran % (Auto) 0.4 (0.0-0.4) % Neut % (Auto) 71.2 (45-73) % Lymph % (Auto) 14.0 L (20-40) % [place] % (Auto) 10.8 (2-11) % Eos % (Auto) 2.6 (0-4) % Baso % (Auto) 1.0 (0-2) % Lymph # (Auto) 1.4 (1.2-4.9) X10*3/uL [place] # (Auto) 1.0 (0.1-1.2) X10*3/uL Eos # (Auto) 0.3 (0.0-0.4) X10*3/uL Baso # (Auto) 0.1 (0.0-0.2) X10*3/uL Abs Immat Gran (auto) 0.04 H (0.00-0.03) X10*3/uL Absolute Neuts (auto) 6.9 (2.0-8.3) x10*3/uL Absolute Nucleated RBC 0.000 (0.0-0.012) X10*3/uL Nucleated RBC % (auto) 0.0 (0.0-0.2) /100WBC ESR 38 H (0-15) MM/HR Sodium 140 (135-145) mmol/L Potassium 3.7 (3.3-5.1) mmol/L Chloride 104 (96-108) mmol/L Carbon Dioxide 29 (22-29) mmol/L Anion Gap 11 L (12-20) BUN 18 H (9-16) mg/dL Creatinine 0.82 (0.5-1.4) mg/dL Estim Creat Clear Calc 97.1 Estimated GFR > 60 Random Glucose 122 H (60-115) mg/dL Calcium 9.6 (8.4-10.2) mg/dL Total Bilirubin 1.6 H (0.0-1.0) mg/dL AST 20 (5-37) U/L ALT 14 (0-40) U/L Alkaline Phosphatase 91 (39-117) U/L C-Reactive Protein 5.81 H (< or = 0.50) mg/dL Total Protein 7.7 (6.5-8.0) g/dL Albumin 4.1 (3.5-5.0) g/dL Independent Interpretation I performed an independent interpretation of an: Plain X-Ray (Left foot:1. Probable ulcer in the plantar region abutting the fifth MTP joint region. 2. No definite radiographic changes of osteomyelitis. 3. Sequela of previous osteomyelitis in the distal fifth metatarsal. 4. Prior resection of the first digit at the region of the mid metatarsal.) Radiology Impression Discussion of test interpretation with radiology: I have reviewed the radiologist's reading. Discharge Plan Discharge Clinical Impression: Cellulitis of left foot Patient Disposition: Home, Self-Care Instructions: Cellulitis (ED) Prescriptions: New doxycycline hyclate 100 mg tablet 100 mg PO BID Qty: 14 0RF No Action allopurinol 100 mg tablet 100 mg PO DAILY 90 Days Qty: 90 1RF hydrochlorothiazide 12.5 mg tablet 12.5 mg PO DAILY Qty: 90 1RF glucosamine sulfate [Glucosamine] 500 mg Tablet 500 mg PO DAILY Rx Instructions: administer with a meal multivitamin Tablet 1 tab PO DAILY omega 4-gsq-nof-fish oil [Fish Oil] 1,000 mg (120 mg-180 mg) Capsule 1 cap PO DAILY losartan 25 mg tablet 25 mg PO DAILY Qty: 90 0RF doxycycline hyclate 100 mg capsule 100 mg PO BID 10 Days Qty: 20 0RF Referrals: Fausto Pat, TRAM INSPECTOR-BC [Primary Care Provider, Internal Medicine] Print Language: Icelandic
[2025-05-09 09:29] LABS: MANUAL DIFF FLAG NO
[2025-05-09 09:31] LABS: Hematocrit 42.2 % (42.0-52.0); Hemoglobin 15.3 g/dl (14.0-18.0); Imm Gran Abs Auto 0.04 X10*3/uL (0.00-0.03); Imm Gran Pct Auto 0.4 % (0.0-0.4); Lymphocytes Absolute Auto 1.4 X10*3/uL (1.2-4.9); Mean Corpuscular HGB Conc 36.3 g/dl (31.0-36.0); Mean Corpuscular Hemoglobin 33.3 pg (27.0-33.0); Mean Corpuscular Volume 91.7 fL (80.0-98.0); NRBC Abs Auto 0.000 X10*3/uL (0.0-0.012); NRBC Pct Auto 0.0 /100WBC (0.0-0.2); Platelet Count 242 X10*3/uL (160-400); Red Blood Count 4.60 X10*6/uL (4.60-5.80); White Blood Count 9.7 X10*3/uL (4.8-10.8)
[2025-05-09 09:45] LABS: Alanine Aminotransferase 14 U/L (0-40); Albumin Level 4.1 g/dL (3.5-5.0); Alkaline Phosphatase 91 U/L (39-117); Anion Gap 11 (12-20); Aspartate Amino Transferase 20 U/L (5-37); Blood Urea Nitrogen 18 mg/dL (9-16); Calcium 9.6 mg/dL (8.4-10.2); Carbon Dioxide 29 mmol/L (22-29); Chloride 104 mmol/L (96-108); Creatinine Clr Calc Pharmacy 97.1; Estimated Glomerular Filt Rate > 60; Potassium 3.7 mmol/L (3.3-5.1); Sodium 140 mmol/L (135-145); Total Protein 7.7 g/dL (6.5-8.0)
[2025-05-09 10:57] VITALS: BP 146/72; PULSE 59; RESP 16; TEMP 36.5; O2SAT 97
--- OUTSIDE RECORDS SUMMARY | 2025-05-09 11:49 | XMS_ITS | Clinical Summary ---
Author Organization [facility] Address [address] [place] [address] Phone Care Team Providers Care Herbicide Service Sales Representative Name Role Phone Fausto Pat NP Primary [...] time each day. 30 each 5 Active Active Problems Problem Noted Date Diagnosed Date Quadriceps tendon rupture, right, initial encoun ter 10/16/2024 Medical History Medical History Date Comments HTN [...] 56 10/19/2024 7:30 AM EST Temperature 37 C (98.6 F) 10/19/2024 7:30 AM EST Respiratory Rate 16 [...] 2003 Zoster Vaccines (1 of 2) 2003 Cholesterol Screening (Lipid Panel) 10/04/2024 Colorectal Cancer Screening: Colonoscopy 10/04/2024 Hepatitis C Screening 10/04/2024 Medicare Annual Wellness Visit 10/04/2024 COVID-19 Vaccine (1 - 2023-2 5 season) 2025 Influenza Vaccine (#1) 2025 Hypertension/CHF/CAD Annual BMP Blood Test 10/17/2025 10/17/2024, 10/10/2024, 10/05/2024 Social Influencers of Health Screening 10/18/2025 10/18/2024 Falls Risk Assessment 10/19/2025 10/19/2024 RSV Immunization Adult Patients (1 - 1-dose 75+ series) 2028 Depression Screening Completed 10/18/2024 HIB Vaccines Aged Out No longer eligi [...] Procedure Name Priority Date/Time Associated Diagnosis Comments COMPREHENSIVE METABOLIC PANEL Routine 10/17/2024 5:46 AM EST from Last 3 Months or Most Recently Relevant to Health Maintenance Results * (ABNORMAL) Comprehensive metabolic panel (10/17/2024 5:46 AM EST) Sodium 138 133 - 145 mmol/L LAB CHEMISTRY METHOD 10/17/2024 6:32 AM EST [facility] Potassium 4.2 3.5 - 5.5 mmol/L LAB CHEMISTRY METHOD 10/17/2024 6:32 AM EST [facility] Chloride 105 96 - 110 mmol/L LAB CHEMISTRY METHOD 10/17/2024 6:32 AM EST [facility] CO2 27 21 - 32 mmol/L LAB CHEMISTRY METHOD 10/17/2024 6:32 AM EST [facility] Anion Gap 6 3 - [...] [facility] Comment:Calculation based on the Chronic Kidney Disease Epidemiology Collaboration (CKD-EPI) equation refit without adjustment for race. 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 Care Teams Herbicide Service Sales Representative Relationship Specialty Start Date End Date Fausto Pat NP [address] [facility] [place], [place] PCP - General Family Medicine 10/17/24
--- OUTSIDE RECORDS SUMMARY | 2025-05-09 11:49 | XMS_ITS | Encounter Summary ---
Author Organization [facility] Address [address] [place] [address] Care Team Providers Care Horse Trekking Guide Name Role Phone Fausto Pat NP Primary Care Provider Encounter Details Date Type Department Care Team (Late st Contact Info) Description 10/05/2024 Lab Requisition [facility] - Main Lab [address] [facility] [place] [address] Sara Blanc MD [address] [place] [id number] Encounter for other general examination Social History [...] CBC auto differential (10/05/2024 5:24 AM EST) [facility] Signature WBC 10.0 4.8 - 10.8 [...] LAB HEMETOLOGY METHOD 10/05/2024 11:37 AM EST [facility] Blood Venous blood specimen / Unknown Venipuncture / Unknown 10/05/2024 5:24 AM EST 10/05/2024 10:54 AM EST Sara Blanc MD LAB BLOOD ORDERABLES Final Res ult [facility] [address] [place] [address], [place] [phone] * Magnesium (10/05/2024 5:24 AM EST) Magnesium 2.1 1.9 - 2.6 mg/dL LAB CHEMISTRY METHOD 10/05/2024 12:10 PM [facility] Blood Venous blood specimen / Unknown Venipuncture / Unknown 10/05/2024 5:24 AM EST 10/05/2024 10:54 AM EST Sara Blanc MD LAB BLOOD ORDERABLES Final Res ult [facility] [address] [place] [address], [place] [phone] * (ABNORMAL) Comprehensive metabolic panel (10/05/2024 5:24 [...] [facility] Comment:Calculation based on the [...] MD LAB BLOOD ORDERABLES Final Res ult [facility] ([facility]) [facility] [address] [place] [address], documented in this encounter Visit Diagnoses Diagnosis Encounter for other general examination documented in this encounter Care Teams Horse Trekking Guide Relationship Specialty Start Date End Date Fausto Pat NP [address] [place], [place] PCP - General Family Medicine 10/17/24 documented as of this encounter
--- OUTSIDE RECORDS SUMMARY | 2025-05-09 11:50 | XMS_ITS | Encounter Summary ---
Author Organization [facility] Address [address] [place] [address] Care Team Providers Care Wildland Fire Operations Specialist Name Role Phone Fausto Pat NP Primary Care Provider [phone] Encounter Details Date Type Department Care Team (Late st Contact Info) Description 10/10/2024 Lab Requisition [facility] - Main Lab [address] [place] [address] Sara Blanc MD [address] [place] [id number] Encounter for other general examination Social History [...] Complete blood count (10/10/2024 7:22 AM EST) [facility] WBC 9.1 4.8 - 10.8 K/mcL LAB HEMETOLOGY METHOD 10/10/2024 11:[address] [facility] RBC 4.40(L) 4.50 - 5.50 M/mcL LAB HEMETOLOGY METHOD 10/10/2024 11:[address] [facility] Hemoglobin 14.9 13.5 - 17.5 g/dL LAB HEMETOLOGY METHOD 10/10/2024 11:[address] [facility] Hematocrit 44.3 42.0 - 54.0 % LAB HEMETOLOGY METHOD 10/10/2024 11:[address] [facility] MCV 100.2(H) 79.0 - 98.0 [place] LAB HEMETOLOGY METHOD 10/10/2024 11:[address] [facility] MCH 33.7(H) 27.0 - 32.0 pcg LAB HEMETOLOGY METHOD 10/10/2024 11:[address] [facility] MCHC 33.6 32.0 - 37.0 g/dL LAB HEMETOLOGY METHOD 10/10/2024 11:[address] [facility] RDW 13.0 11.0 - 15.0 % LAB HEMETOLOGY METHOD 10/10/2024 11:[address] [facility] Platelets 318 130 - 400 K/mcL LAB HEMETOLOGY METHOD 10/10/2024 11:[address] [facility] MPV 11.8(H) 7.0 - 11.0 FL LAB HEMETOLOGY METHOD 10/10/2024 11:[address] [facility] NRBC 0.0 <1.0 % LAB HEMETOLOGY METHOD 10/10/2024 11:[address] [facility] NRBC Absolute 0.00 <0.10 K/mcL LAB HEMETOLOGY METHOD 10/10/2024 11:[address] [facility] Blood Venous blood specimen / Unknown Venipuncture / Unknown 10/10/2024 7:22 AM EST 10/10/2024 11:30 AM EST us Sara Blanc MD LAB BLOOD ORDERABLES Final Res ult [facility] [address] [place] [address], [place] [phone] * Comprehensive metabolic panel (10/10/2024 7:22 AM EST) Sodium 139 133 - 145 mmol/L LAB CHEMISTRY METHOD 10/10/2024 1:[address] [facility] Potassium 4.2 3.5 - 5.5 mmol/L LAB CHEMISTRY METHOD 10/10/2024 1:[address] [facility] Chloride 103 96 - 110 mmol/L LAB CHEMISTRY METHOD 10/10/2024 1:[address] [facility] CO2 31 21 - 32 mmol/L LAB CHEMISTRY METHOD 10/10/2024 1:[address] [facility] Anion Gap 5 3 - 11 LAB CHEMISTRY METHOD 10/10/2024 1:[address] [facility] Glucose 81 70 - 100 mg/dL LAB CHEMISTRY METHOD 10/10/2024 1:[address] [facility] BUN 18 5 - 25 mg/dL LAB CHEMISTRY METHOD 10/10/2024 1:[address] [facility] Creatinine 0.93 0.70 - 1.30 mg/dL LAB CHEMISTRY METHOD 10/10/2024 1:[address] [facility] eGFR 88 >=60 mL/min/1. 73m2 LAB CHEMISTRY METHOD 10/10/2024 1:[address] [facility] Comment:Calculation based on the Chronic Kidney Disease Epidemiology Collaboration (CKD-EPI) equation refit without adjustment for race. BUN/Creatinine Ratio 19.4 LAB CHEMISTRY METHOD 10/10/2024 1:[address] [facility] Calcium 9.6 8.5 - 10.5 mg/dL LAB CHEMISTRY METHOD 10/10/2024 1:[address] [facility] AST (SGOT) 33 10 - 42 unit/L LAB CHEMISTRY METHOD 10/10/2024 1:[address] [facility] ALT (SGPT) 39 10 - 60 unit/L LAB CHEMISTRY METHOD 10/10/2024 1:[address] [facility] Alkaline Phosphatase 90 42 - 121 unit/L LAB CHEMISTRY METHOD 10/10/2024 1:[address] [facility] Total Protein 7.3 6.0 - 8.0 g/dL LAB CHEMISTRY METHOD 10/10/2024 1:[address] [facility] Albumin 3.6 3.2 - 5.0 g/dL LAB CHEMISTRY METHOD 10/10/2024 1:[address] [facility] Total Bilirubin 1.4 0.0 - 1.4 mg/dL LAB CHEMISTRY METHOD 10/10/2024 1:[address] [facility] Blood Venous blood specimen / Unknown Venipuncture / Unknown 10/10/2024 7:22 AM EST 10/10/2024 11:30 AM EST us Sara Blanc MD LAB BLOOD ORDERABLES Final Res ult [facility] [address] [place] [address], documented in this encounter Visit Diagnoses Diagnosis Encounter for other general examination documented in this encounter Care Teams Wildland Fire Operations Specialist Relationship Specialty Start Date End Date [facility] Pat [facility] [address] [facility] [place] [facility] - General Family Medicine 10/17/24 documented as of this encounter
[2025-05-09 13:23] VITALS: BP 150/70; PULSE 59; RESP 18; O2SAT 99
[2025-05-09 13:50] VITALS: BP 150/70; PULSE 59; RESP 18; TEMP -17.7; TEMP 0; O2SAT 99
== END 2025-05-09 13:51 | disposition home or self-care (01) ==
PROVIDERS: Emergency Provider Emergency Medicine; PCP Nurse Practitioner Family
DX: L03.116 Cellulitis of left lower limb (principal); M79.672 Pain in left foot
CPT/HCPCS: 36415; 73630; 80053; 85025; 85652; 86140; 87040; 96374; 99284; J1271

== ENCOUNTER → 2025-05-09 10:10 | Outpatient (BNV) | payer MEDICARE, SELFPAY | PROVIDERS: Emergency Provider Emergency Medicine; PCP Nurse Practitioner Family; Visit Provider Radiology Diagnostic Radiology | DX: S91.302A Unspecified open wound, left foot, initial encounter (principal) | CPT/HCPCS: 73630 ==